=== PATIENT | male | born 1945 | race Caucasian/White ===

== ENCOUNTER 2017-10-26 00:55 | Inpatient (IN) | payer MEDICARE, MEDICAID ==
[2017-10-26] VITALS (9 sets, daily range): BP systolic 141–175; BP diastolic 67–87; PULSE 57–85; RESP 18–28; TEMP 97.9–98.1; O2SAT 93–98
[~2017-10-26] VITALS: Ht 170.2 cm; Wt 75.0 kg
[2017-10-26] MEDS ORDERED: TRAM50TA PO (00:58)
[2017-10-26] MEDS ORDERED: ASPI1TAB57 PO (01:05)
[2017-10-26] MEDS ORDERED: GABA300C5 PO (01:05)
[2017-10-26] MEDS ORDERED: XARE10TA PO (01:06)
[2017-10-26] MEDS ORDERED: CARV3.12 PO (01:07)
[2017-10-26] MEDS ORDERED: CARV6.252 PO (01:07)
[2017-10-26] MEDS ORDERED: SIMV10TA PO (01:08)
[2017-10-26] MEDS ORDERED: AMIO0.1T PO (01:09)
[2017-10-26] MEDS ORDERED: MULTTAB67 PO (01:09)
--- NOTE | 2017-10-26 01:18 | PD ---
HPI Chief Complaint: Respiratory Symptoms Time Seen by Provider: 01:00 Travel History International Travel<30 days: No Contact w/Intl Traveler<30days: No Traveled to known affect area: No History of Present Illness HPI 72-year-old male presents to the emergency department from home for one hour sudden onset shortness of breath that has improved after albuterol updraft 2 administered by EMS during transport. Patient with prior episodes of shortness of breath and does not know the source of his episodes of shortness of breath. Patient has known coronary vessel disease with previous CABG. Patient denies any pain at this time. Patient denies orthopnea or PND or pleuritic chest pain. No hemoptysis. Patient denies prior known history of emphysema or COPD. No report of defibrillation by his AICD. No recent febrile illness. No productive cough. No pleuritic chest pain. PFSH Past Medical History Narrative Medical CAD CABG pacemaker AICD dyslipidemia hypertension; no tobacco use; nursing notes reviewed Hypertension: Yes Tetanus Vaccination: < 5 Years Influenza Vaccination: Yes Past Surgical History Cardiac Surgery: Yes (stent june 05, bypass surgery ) Social History Alcohol Use: No Tobacco Use: No Substance Use: No Allergies-Medications (Allergen,Severity, Reaction): Coded Allergies: No Known Allergies (Verified Allergy, Unknown, 10/26/17) Reported Meds & Prescriptions Reported Meds & Active Scripts Active Reported Multiple Vitamin 1 Tab 1 Tab PO DAILY Amiodarone (Amiodarone HCl) 100 Mg Tab 100 Mg PO DAILY Simvastatin 10 Mg Tab 10 Mg PO DAILY Carvedilol 6.25 Mg Tab 6.25 Mg PO DAILY Xarelto (Rivaroxaban) 10 Mg Tab 10 Mg PO DAILY Aspirin 81 (Aspirin) 81 Mg Tabdr 81 Mg PO DAILY Gabapentin 300 Mg Cap 300 Mg PO TID Tramadol (Tramadol HCl) 50 Mg Tab 50 Mg PO Q6H PRN Review of Systems Except as stated in HPI: all other systems reviewed are Neg Physical Exam Narrative GENERAL: Well-developed well-nourished pale appearing male in no acute distress no respiratory distress SKIN: Warm and dry. HEAD: Normocephalic. EYES: No scleral icterus. No injection or drainage. NECK: Supple, trachea midline. No JVD or lymphadenopathy. CARDIOVASCULAR: Regular rate and rhythm without murmurs, gallops, or rubs. RESPIRATORY: Breath sounds equal bilaterally. No accessory muscle use. GASTROINTESTINAL: Abdomen soft, non-tender, nondistended. MUSCULOSKELETAL: No cyanosis, or edema. BACK: Nontender without obvious deformity. No CVA tenderness. Data Data Last Documented VS Vital Signs Date Time Temp Pulse Resp B/P (MAP) Pulse Ox O2 Delivery O2 Flow Rate FiO2 10/26/17 03:14 72 22 170/75 (106) 98 Nasal Cannula 2.00 Orders Orders Complete Blood Count With Diff (10/26/17 01:24) Comprehensive Metabolic Panel (10/26/17 01:24) B-Type Natriuretic Peptide (10/26/17 01:24) Act Partial Throm Time (Ptt) (10/26/17:24) Prothrombin Time / Inr (Pt) (10/26/17:24) Magnesium (Mg) (10/26/17:24) Ckmb (Isoenzyme) Profile (10/26/17 01:24) Troponin I (10/26/17:24) Urinalysis - C+S If Indicated (10/26/17 01:24) Iv Access Insert/Monitor (10/26/17 01:24) Electrocardiogram (10/26/17 01:24) Ecg Monitoring (10/26/17 01:24) Oximetry (10/26/17 01:24) Oxygen Administration (10/26/17 01:24) Chest, Single Ap (10/26/17 01:24) Sodium Chloride 0.9% Flush (Ns Flush) (10/26/17 01:30) Albuterol-Ipratropium Neb (Duoneb Neb) (10/26/17 01:30) Type And Screen (10/26/17 01:24) CKMB (10/26/17 01:35) CKMB% (10/26/17 01:35) Furosemide Inj (Lasix Inj) (10/26/17 03:00) Admit Order (Ed Use Only) (10/26/17 ) Spa Attendant / Telemetry EDWARD.Q8H (10/26/17 03:15) Diet Heart Healthy (10/26/17 Breakfast) Activity Oob With Assistance (10/26/17 03:15) Notify Dr: Other (10/26/17 03:15) Nitroglycerin 2% Oint (Nitroglycerin 2% (10/26/17 03:30) Labs Laboratory Tests Test 10/26/17 01:35 White Blood Count 8.2 TH/MM3 Red Blood Count 4.09 MIL/MM3 Hemoglobin 12.6 GM/DL Hematocrit 38.3 % Mean Corpuscular Volume 93.6 FL Mean Corpuscular Hemoglobin 30.7 PG Mean Corpuscular Hemoglobin Concent 32.8 % Red Cell Distribution Width 15.9 % Platelet Count 163 TH/MM3 Mean Platelet Volume 8.2 FL Neutrophils (%) (Auto) 41.2 % Lymphocytes (%) (Auto) 43.3 % Monocytes (%) (Auto) 11.3 % Eosinophils (%) (Auto) 3.6 % Basophils (%) (Auto) 0.6 % Neutrophils # (Auto) 3.4 TH/MM3 Lymphocytes # (Auto) 3.6 TH/MM3 Monocytes # (Auto) 0.9 TH/MM3 Eosinophils # (Auto) 0.3 TH/MM3 Basophils # (Auto) 0.0 TH/MM3 CBC Comment DIFF FINAL Differential Comment Prothrombin Time 10.6 SEC Prothromb Time International Ratio 1.0 RATIO Activated Partial Thromboplast Time 20.3 SEC Blood Urea Nitrogen 35 MG/DL Creatinine 1.33 MG/DL Random Glucose 100 MG/DL Total Protein 7.0 GM/DL Albumin 3.3 GM/DL Calcium Level 8.1 MG/DL Magnesium Level 2.1 MG/DL Alkaline Phosphatase 42 U/L Aspartate Amino Transf (AST/SGOT) 24 U/L Alanine Aminotransferase (ALT/SGPT) 35 U/L Total Bilirubin 0.2 MG/DL Sodium Level 139 MEQ/L Potassium Level 5.0 MEQ/L Chloride Level 105 MEQ/L Carbon Dioxide Level 27.8 MEQ/L Anion Gap 6 MEQ/L Estimat Glomerular Filtration Rate 53 ML/MIN Total Creatine Kinase 163 U/L Creatine Kinase MB 4.1 NG/ML Troponin I LESS THAN 0.02 NG/ML B-Type Natriuretic Peptide 362 PG/ML MDM Medical Decision Making Medical Screen Exam Complete: Yes Emergency Medical Condition: Yes Medical Record Reviewed: Yes Interpretation(s) EKG: Sinus rhythm rate 80 to left axis deviation left bundle branch block no acute ST elevation Differential Diagnosis Dyspnea, CHF, PE, anemia, ACS, IN Narrative Course Patient placed on residential monitor with continuous pulse oximetry patient placed on supplemental oxygen 2 L per minute nasal cannula with O2 saturation 96% patient given DuoNeb updraft 1; specimens collected and sent for resulting After additional updraft treatment patient resting comfortably Chest x-ray with some atelectasis versus mild vascular congestion BNP is mildly elevated at 362 with troponin I less than 0.02 and CK total 162 MB percent 2.5% not elevated Patient requesting dinner tray no complaint of chest pain or shortness of breath at this time Patient's case discussed with on-call [facility] MD --rec: admission Physician Communication Physician Communication discussed with Dr Martell Diagnosis Primary Impression: Dyspnea Qualified Codes: R06.03 - Acute respiratory distress Additional Impressions: Chest pain Qualified Codes: R07.2 - Precordial pain CHF with unknown LVEF Admitting Information Admitting Physician Requests: Admit Tracy Christensen MD Oct 26, 2017 01:18
[2017-10-26] MEDS ORDERED: RESP: ALBUTEROL 2.5 MG/IPRATROPIUM 0.5 MG NEB (SCH) INH ONE (01:30)
[2017-10-26] MEDS ORDERED: SODIUM CHLORIDE 0.9% FLUSH 10 ML FLUSH IVF PRN (01:30)
[2017-10-26 01:54] LABS: AUTOMATED NEUTROPHIL # 3.4 TH/MM3 (1.8-7.7); BASOPHIL % 0.6 % (0.0-2.0); EOSINOPHIL # 0.3 TH/MM3 (0-0.4); EOSINOPHIL % 3.6 % (0.0-4.0); HEMATOCRIT 38.3 % (39.0-51.0); HEMOGLOBIN 12.6 GM/DL (13.0-17.0); LYMPH % 43.3 % (9.0-44.0); LYMPHOCYTE # 3.6 TH/MM3 (1.0-4.8); MEAN CELL VOLUME 93.6 FL (80.0-100.0); MEAN CORPUSCULAR HEMOGLOBIN 30.7 PG (27.0-34.0); MEAN CORPUSCULAR HGB CONC 32.8 % (32.0-36.0); MEAN PLATELET VOLUME 8.2 FL (7.0-11.0); MONO % 11.3 % (0.0-8.0); MONOCYTE # 0.9 TH/MM3 (0-0.9); NEUT % 41.2 % (16.0-70.0); PLATELET COUNT 163 TH/MM3 (150-450); RED BLOOD COUNT 4.09 MIL/MM3 (4.50-5.90); RED CELL DISTRIBUTION WIDTH 15.9 % (11.6-17.2); WHITE BLOOD COUNT 8.2 TH/MM3 (4.0-11.0)
[2017-10-26 02:12] LABS: ALKALINE PHOSPHATASE 42 U/L (45-117); TOTAL BILIRUBIN ADULT 0.2 MG/DL (0.2-1.0); TROPONIN I LESS THAN 0.02 NG/ML (0.02-0.05)
[2017-10-26 02:14] LABS: ALBUMIN 3.3 GM/DL (3.4-5.0); ALT (GPT) 35 U/L (12-78); AST (GOT) 24 U/L (15-37); BICARBONATE 27.8 MEQ/L (21.0-32.0); BLOOD UREA NITROGEN 35 MG/DL (7-18); CALCIUM 8.1 MG/DL (8.5-10.1); CHLORIDE 105 MEQ/L (98-107); CREATININE 1.33 MG/DL (0.60-1.30); GLOMERULAR FILTRATION RATE 53 ML/MIN (>89); GLUCOSE,RANDOM 100 MG/DL (74-106); MAGNESIUM 2.1 MG/DL (1.5-2.5); SODIUM (NA) 139 MEQ/L (136-145)
--- NOTE | 2017-10-26 02:14 | RADRPT ---
EXAM DATE/TIME: 10/26/2017 01:43 [place] COMPARISON: No previous studies available for comparison. INDICATIONS : Shortness of breath. MEDICAL HISTORY : Cardiovascular disease. SURGICAL HISTORY : Coronary artery stent. CABG. Pacemaker. ENCOUNTER: Initial ACUITY: 1 day PAIN SCORE: 0/10 LOCATION: Bilateral chest FINDINGS: Single AP view of the chest. AICD in place. Median sternotomy wires noted. Mild cardiac silhouette en largement. Mild medial bilateral lung base opacity likely representing atelectasis. Lungs otherwise c lear. No evidence of pleural effusion or pneumothorax. CONCLUSION: 1. Mild medial bilateral lower lobe opacity likely representing atelectasis. 2. Mild cardiac silhouette enlargement. Jacinto Jaquez MD on October 26, 2017 at 2:07 Board Certified Radiologist. This report was verified electronically.
[2017-10-26 02:15] LABS: PROTHROMBIN TIME - PATIENT 10.6 SEC (9.8-11.6)
[2017-10-26] MEDS ORDERED: FUROSEMIDE 20 MG/2 ML VIAL IV PUSH ONE (03:00)
[2017-10-26] MEDS ORDERED: RESP: ALBUTEROL 2.5 MG/IPRATROPIUM 0.5 MG NEB (PRN) NEB (03:30)
[2017-10-26] MEDS ORDERED: ACETAMINOPHEN/HYDROcodone 325 MG/5 MG TAB PO PRN (03:30)
[2017-10-26] MEDS ORDERED: BISACODYL 10 MG SUPP RECTAL PRN (03:30)
[2017-10-26] MEDS ORDERED: SENNOSIDES 8.6 MG TAB PO PRN (03:30)
[2017-10-26] MEDS ORDERED: NITROGLYCERIN 2% OINT 1 GM PACKET TOPICAL PRN (03:30)
[2017-10-26] MEDS ORDERED: NITROGLYCERIN 2% OINT 1 GM PACKET TOPICAL ONE (03:30)
[2017-10-26] MEDS ORDERED: ACETAMINOPHEN 325 MG TAB PO PRN (03:30)
[2017-10-26] MEDS ORDERED: MAGNESIUM HYDROXIDE SUSP 30 ML CUP PO PRN (03:30)
[2017-10-26] MEDS ORDERED: ONDANSETRON HCL 4 MG/2 ML VIAL IVP PRN (03:30)
[2017-10-26] MEDS ORDERED: LACTULOSE SYRUP 20 GM/30 ML CUP PO PRN (03:30)
[2017-10-26] MEDS ORDERED: SODIUM CHLORIDE 0.9% FLUSH 10 ML FLUSH IV FLUSH PRN (03:30)
[2017-10-26] MEDS ORDERED: MORPHINE SULFATE 2 MG/ML INJ IV PUSH PRN (03:30)
[2017-10-26 03:53] LABS: BILIRUBIN, URINE NEG (NEG); BLOOD, URINE NEG (NEG); GLUCOSE,URINE NEG (NEG); KETONE, URINE NEG (NEG); MUCUS URINE FEW /lpf (OCC); NITRITE,URINE NEG (NEG); PH, URINE 5.5 (5.0-8.5); URINE COLOR LIGHT-YELLOW (YELLW/STRAW); URINE LEUKOCYTE ESTERASE NEG (NEG)
--- NOTE | 2017-10-26 03:57 | HHI.HP ---
HPI Service [facility] Primary Care Physician No Primary Care Physician Admission Diagnosis chest pain; chf Diagnoses: (1) Chest pain Diagnosis: Principal (2) Hypoxia Diagnosis: Principal (3) Renal insufficiency Diagnosis: Principal (4) HTN (hypertension) Diagnosis: Principal Travel History International Travel<30 Days: No Contact w/Intl Traveler <30 Da: No Traveled to Known Affected Are: No History of Present Illness This is a 72-year-old male with a PMH of HTN, CAD s/p CABG, AICD and A-fib on Xarelto who was brought to the ER by EMS secondary to c/o chest pain and SOB starting few hours prior. States he had progressive SOB, worse w/ exertion, moderate severity, associated w/ chest pain. Chest pain sharp, intermittent, non-radiating, 6/10. Upon EMS arrival, pt w/ O2 sat 88%, s/p DuoNeb by EMS w/ improvement in SOB and chest pain. No reports of AICD firing. 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 BP 168/87, HR 85, O2 sat 94% on RA. CBC essentially unremarkable. Creatinine 1.33. Troponin negative. BNP 362. INR 1.0. UA pending. CXR with mild medial bilateral lower lobe opacity likely atelectasis. S/p Lasix, NTG and DuoNeb in ER, currently chest pain free. Review of Systems Except as stated in HPI: all other systems reviewed are Neg ROS: 14 point review of systems otherwise negative. Past Family Social History Past Medical History PMH: HTN, CAD s/p CABG, AICD and A-fib on Xarelto Past Surgical History PAST SURGICAL HISTORY: Cardiac Stent, CABG, AICD Allergies: Coded Allergies: No Known Allergies (Verified Allergy, Unknown, 10/26/17) Family History PAST FAMILY HISTORY: Reviewed. No h/o DM or CAD Social History PAST SOCIAL HISTORY: Negative for alcohol, tobacco or drugs. Physical Exam Vital Signs Vital Signs Date Time Temp Pulse Resp B/P (MAP) Pulse Ox O2 Delivery O2 Flow Rate FiO2 10/26/17 03:39 98 Nasal Cannula 2.00 10/26/17 03:14 72 22 170/75 (106) 98 Nasal Cannula 2.00 10/26/17 01:34 95 Nasal Cannula 2.00 10/26/17 01:34 95 Nasal Cannula 2.00 10/26/17 00:59 96 Nasal Cannula 2.00 10/26/17 00:58 85 28 168/87 (114) 94 Room Air Physical Exam PE: GENERAL: Very pleasant elderly white male in no acute distress. HEENT: PERRLA, EOMI. No scleral icterus or conjunctival pallor. No lid lag or facial droop. CARDIOVASCULAR: Regular rate and rhythm. No obvious murmurs to auscultation. No chest tenderness to palpation. RESPIRATORY: No obvious rhonchi or wheezing. Clear to auscultation. Breath sounds equal bilaterally. GASTROINTESTINAL: Abdomen soft, non-tender, nondistended. BS normal. MUSCULOSKELETAL: Extremities without clubbing, cyanosis, or edema. No obvious deformities. NEUROLOGICAL: Awake, alert and oriented x4. No focal neurologic deficits. Moving both upper and lower extremities spontaneously. Laboratory Laboratory Tests Test 10/26/17 01:35 10/26/17 03:20 White Blood Count 8.2 Red Blood Count 4.09 Hemoglobin 12.6 Hematocrit 38.3 Mean Corpuscular Volume 93.6 Mean Corpuscular Hemoglobin 30.7 Mean Corpuscular Hemoglobin Concent 32.8 Red Cell Distribution Width 15.9 Platelet Count 163 Mean Platelet Volume 8.2 Neutrophils (%) (Auto) 41.2 Lymphocytes (%) (Auto) 43.3 Monocytes (%) (Auto) 11.3 Eosinophils (%) (Auto) 3.6 Basophils (%) (Auto) 0.6 Neutrophils # (Auto) 3.4 Lymphocytes # (Auto) 3.6 Monocytes # (Auto) 0.9 Eosinophils # (Auto) 0.3 Basophils # (Auto) 0.0 CBC Comment DIFF FINAL Differential Comment Prothrombin Time 10.6 Prothromb Time International Ratio 1.0 Activated Partial Thromboplast Time 20.3 Blood Urea Nitrogen 35 Creatinine 1.33 Random Glucose 100 Total Protein 7.0 Albumin 3.3 Calcium Level 8.1 Magnesium Level 2.1 Alkaline Phosphatase 42 Aspartate Amino Transf (AST/SGOT) 24 Alanine Aminotransferase (ALT/SGPT) 35 Total Bilirubin 0.2 Sodium Level 139 Potassium Level 5.0 Chloride Level 105 Carbon Dioxide Level 27.8 Anion Gap 6 Estimat Glomerular Filtration Rate 53 Total Creatine Kinase 163 Creatine Kinase MB 4.1 Troponin I LESS THAN 0.02 B-Type Natriuretic Peptide 362 Result Diagram: 10/26/1713410/26/17134 Caprini VTE Risk Assessment Caprin VTE Risk Assessment: Mod/High Risk (score >= 2) Caprini Risk Assessment Model Point Value = 1 Point Value = 2 Point Value = 3 Point Value = 5 Age 41-60 Minor surgery BMI > 25 kg/m2 Swollen legs Varicose veins or History of unexplained or recurrent spontaneous Oral contraceptives or hormone replacement Sepsis (< 1 month) Serious lung disease, including pneumonia (< 1 month) Abnormal pulmonary function Acute myocardial infarction Congestive heart failure (< 1 month) History of inflammatory bowel disease Medical patient at bed rest Age 61-74 Arthroscopic surgery Major open surgery (> 45 min) Laparoscopic surgery (> 45 min) Malignancy Confined to bed (> 72 hours) Immobilizing plaster cast Central venous access Age >= 75 History of VTE Family history of VTE Factor V Leiden Prothrombin [id number] Lupus anticoagulant Anticardiolipin antibodies Elevated serum homocysteine Heparin-induced thrombocytopenia Other congenital or acquired thrombophilia Stroke (< 1 month) Elective arthroplasty Hip, pelvis, or leg fracture Acute spinal cord injury (< 1 month) Prophylaxis Regimen Total Risk Factor Score Risk Level Prophylaxis Regimen 0-1 Low Early ambulation 2 Moderate Order ONE of the following: *Sequential Compression Device (SCD) *Heparin 5000 units SQ BID 3-4 Higher Order ONE of the following medications: *Heparin 5000 units SQ TID *Enoxaparin/Lovenox 40 mg SQ daily (WT < 150 kg, CrCl > 30 mL/min) *Enoxaparin/Lovenox 30 mg SQ daily (WT < 150 kg, CrCl > 10-29 mL/min) *Enoxaparin/Lovenox 30 mg SQ BID (WT < 150 kg, CrCl > 30 mL/min) AND/OR *Sequential Compression Device (SCD) 5 or more Highest Order ONE of the following medications: *Heparin 5000 units SQ TID (Preferred with Epidurals) *Enoxaparin/Lovenox 40 mg SQ daily (WT < 150 kg, CrCl > 30 mL/min) *Enoxaparin/Lovenox 30 mg SQ daily (WT < 150 kg, CrCl > 10-29 mL/min) *Enoxaparin/Lovenox 30 mg SQ BID (WT < 150 kg, CrCl > 30 mL/min) AND *Sequential Compression Device (SCD) Assessment and Plan Problem List: (1) Chest pain ICD Code: R07.9 - Chest pain, unspecified Status: Acute (2) Hypoxia ICD Code: R09.02 - Hypoxemia (3) Renal insufficiency ICD Code: N28.9 - Disorder of kidney and ureter, unspecified (4) HTN (hypertension) ICD Code: I10 - Essential (primary) hypertension Assessment and Plan A/P: 1. Chest Pain: acute onset of chest pain w/ SOB, h/o CAD s/p CABG, R/o ACS. Admit to Telemetry, check serial cardiac enzymes, ASA, Statin, resume home Coreg. CXR w/ likely atelectasis, mild cardiac silhouette enlargement, images reviewed by me. NTG/Morphine as needed. 2. Hypoxia: c/o SOB w/ acute hypoxia, O2 sat 88% on RA, s/p DuoNeb w/ improvement, no reported h/o COPD. BNP mildly elevated, s/p Lasix 20mg IV w/ good diuresis. Continue DuoNeb prn for possible bronchospasm. Check Echo to eval for cardiomyopathy/heart failure. Monitor O2. 3. Renal Insufficiency: Creatinine 1.33, no previous labs for comparison. Check UA. Caution with diuresis in light of renal insufficiency, repeat labs in a.m. 4. HTN: Uncontrolled. BP 170s, resume home medications, monitor BP. 5. DVT Prophylaxis: Heparin sq 6. Social work for d/c planning as needed. 7. Labs/records/imaging reviewed by me. Case discussed at length w/ ER physician. Physician Certification 2 Midnight Certification Type: Admission for Inpatient Services Order for Inpatient Services The services are ordered in accordance with Medicare regulations or non- Medicare payer requirements, as applicable. In the case of services not specified as inpatient-only, they are appropriately provided as inpatient services in accordance with the 2-midnight benchmark. Estimated LOS (days): 2 days is the estimated time the patient will need to remain in the hospital, assuming treatment plan goals are met and no additional complications. Post-Hospital Plan: Not yet determined Problem Qualifiers (1) Chest pain: Qualified Codes: R07.2 - Precordial pain Graciela Martell MD Oct 26, 2017 03:57
[2017-10-26] MEDS ORDERED: HEPARIN SODIUM - SQ 10,000 UNITS/ML VIAL SQ SCH (09:00)
--- NOTE | 2017-10-26 10:17 | HHI.PR ---
Subjective Remarks Follow-up on patient with chest pain and shortness of breath. Patient seen and examined. Patient states he feels a little better than he did yesterday. Patient is a very poor historian. He vocalizes he's frustration that he is having to repeat the same information he is already told other providers. When asked about medications, patient tells me to "check the sheet". When asked about previous surgeries patient points to his chest and says "what do you think am I making this up?". Patient states he has left-sided chest pain mostly with palpation although he does report that he has it sometimes without. Reports shortness of breath with minimal activity. Denies any lower extremity swelling. States he is urinating without any difficulties. Recently relocated to this area from [place] a few days ago. 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 States he had a cardiac stent placement done 4 months ago and that he is "due for another one". States he is compliant with his medications and diet. He denies any nausea, vomiting or abdominal pain. Patient then informs me that he doesn't want to talk anymore and suggests that I look on the computer for any more information. 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 Patient's compliance is questionable. Objective Vitals Vital Signs Date Time Temp Pulse Resp B/P (MAP) Pulse Ox O2 Delivery O2 Flow Rate FiO2 10/26/17 08:38 97.9 57 18 175/72 (106) 93 10/26/17 05:07 98.0 60 18 141/76 (97) 94 10/26/17 03:51 10/26/17 03:39 98 Nasal Cannula 2.00 10/26/17 03:14 72 22 170/75 (106) 98 Nasal Cannula 2.00 10/26/17 01:34 95 Nasal Cannula 2.00 10/26/17 01:34 95 Nasal Cannula 2.00 10/26/17 00:59 96 Nasal Cannula 2.00 10/26/17 00:58 85 28 168/87 (114) 94 Room Air Result Diagram: 10/26/17 0135 10/26/17 0135 Imaging Last Impressions Chest X-Ray 10/26/17 0124 Signed Impressions: Service Date/Time: Thursday, October 26, 2017 01:43 - CONCLUSION: 1. Mild medial bilateral lower lobe opacity likely representing atelectasis. 2. Mild cardiac silhouette enlargement. Jacinto Jaquez MD Objective Remarks GENERAL: Well-nourished, well-developed elderly male patient in NAD. Awake and alert. SKIN: Warm and dry. No rash. Well healed midline surgical scar chest and abdomen. HEAD: Normocephalic. Atraumatic. EYES: EOMI. No scleral icterus. No injection or drainage. ENT: No nasal bleeding or discharge. Mucous membranes pink and moist. NECK: Supple. Trachea midline. CARDIOVASCULAR: Regular rate and rhythm. S1, S2 noted. No murmur appreciated. Left sided chest pain reproducible on examination. RESPIRATORY: Nonlabored. Clear to auscultation. Breath sounds equal bilaterally. GASTROINTESTINAL: Abdomen soft, non-tender, nondistended. Normoactive bowel sounds x4. MUSCULOSKELETAL: No obvious deformities. Extremities without clubbing, cyanosis , or edema. NEUROLOGICAL: Awake and alert. Able to move all extremities spontaneously. No focal neurologic findings appreciated.. Normal speech. PSYCHIATRIC: Irritable mood and affect. Medications and IVs Current Medications Medications (Trade) Dose Ordered Sig/Eliot Route Start Time Stop Time Status Last Admin (NS Flush) 2 ml UNSCH PRN IVF 10/26/17 01:30 (Lasix Inj) 20 mg BID@,18 IV PUSH 10/26/17 09:00 (Duoneb Neb) 1 ampule Q4HR NEB PRN NEB 10/26/17 03:30 (Nitroglycerin 2% Oint) 0.5 inch Q6HR PRN TOPICAL 10/26/17 03:30 (NS Flush) 2 ml UNSCH PRN IV FLUSH 10/26/17 03:30 (NS Flush) 2 ml BID IV FLUSH 10/26/17 09:00 (Zofran Inj) 4 mg Q6H PRN IVP 10/26/17 03:30 (Heparin Inj) 5,000 units Q12H SQ 10/26/17 09:00 (Tylenol) 650 mg Q6H PRN PO 10/26/17 03:30 ([place] 5-325 Mg) 1 tab Q4H PRN PO 10/26/17 03:30 (Morphine Inj) 2 mg Q3H PRN IV PUSH 10/26/17 03:30 (Lillian-Colace) 1 tab BID PO 10/26/17 09:00 (Milk Of Magnesia Liq) 30 ml Q12H PRN PO 10/26/17 03:30 (Senokot) 17.2 mg Q12H PRN PO 10/26/17 03:30 (Dulcolax Supp) 10 mg DAILY PRN RECTAL 10/26/17 03:30 (Lactulose Liq) 30 ml DAILY PRN PO 10/26/17 03:30 (Cordarone) 100 mg DAILY PO 10/26/17 09:00 (Ecotrin Ec) 81 mg DAILY PO 10/26/17 09:00 (Coreg) 6.25 mg DAILY PO 10/26/17 09:00 (Neurontin) 300 mg TID PO 10/26/17 09:00 (Theragran) 1 tab DAILY PO 10/26/17 09:00 (Pravachol) 20 mg DAILY PO 10/26/17 09:00 A/P Problem List: (1) Chest pain ICD Code: R07.9 - Chest pain, unspecified Status: Acute (2) Hypoxia ICD Code: R09.02 - Hypoxemia (3) Renal insufficiency ICD Code: N28.9 - Disorder of kidney and ureter, unspecified (4) HTN (hypertension) ICD Code: I10 - Essential (primary) hypertension Assessment and Plan Chest Pain, atypical, r/o ACS He has extensive history of CAD s/p CABG and reports cardiac stent implant 4mos ago - initial troponin negative. Continue to trend cardiac enzymes. - Cardiology consulted, appreciate recommendations - Continuous cardiac monitoring - ASA, Statin and Coreg. - NTG/Morphine as needed. Hypoxia c/o SOB w/ acute hypoxia, O2 sat 88% on RA, s/p DuoNeb w/ improvement, no reported h/o COPD. Concern for CHF - CXR w/ likely atelectasis, mild cardiac silhouette enlargement. IS at bedside, encourage hourly use - BNP mildly elevated, s/p Lasix 20mg IV w/ good diuresis. Continue on IV Lasix. Monitor electrolytes. Strict I&Os. - Continue DuoNeb prn - Check Echo to eval for cardiomyopathy/heart failure. - Monitor O2. Afib on Xarelto - rate controlled - continue on Amiodarone and Xarelto. May need to consider Xarelto dose reduction pending trend in kidney function - continue to monitor HR ?DELFINO on CKD - Creatinine 1.33, no previous labs for comparison. - UA unremarkable - avoid nephrotoxic agents. - continue to monitor kidney function HTN: Uncontrolled. BP 170s - Resume home medications - Hydralazine prn with parameters - monitor BP and adjust treatment accordingly DVT Prophylaxis: Patient is on Xarelto Discharge Planning Pending cardiac clearance and echocardiogram results Attending Statement patient was seen and examined. presented with chest pain. cardiology consulted; awaiting recommendations. rest of assessment and plan as noted above. Problem Qualifiers (1) Chest pain: Qualified Codes: R07.2 - Precordial pain Ninfa Montesinos Oct 26, 2017 10:17 Amada Fletcher MD Oct 26, 2017 11:15
--- NOTE | 2017-10-26 10:21 | PD.CONS ---
HPI Consult Requested By Primary Care Physician No Primary Care Physician History of Present Illness 72-year-old male with a PMH of HTN, CAD s/p CABG, AICD and A-fib on Xarelto who was brought to the ER by EMS secondary to c/o chest pain and SOB starting few hours prior. States he had progressive SOB, worse w/ exertion, moderate severity, associated w/ chest pain. Chest pain sharp, intermittent, non- radiating, 6/10. Upon EMS arrival, pt w/ O2 sat 88%, s/p DuoNeb by EMS w/ improvement in SOB and chest pain. No reports of AICD firing. Pt poor historian, does not know what medications he takes, no local [employer]. BP 168/87, HR 85, O2 sat 94% on RA. CBC essentially unremarkable. Creatinine 1.33. Troponin negative. BNP 362. INR 1.0. UA pending. CXR with mild medial bilateral lower lobe opacity likely atelectasis. S/p Lasix, NTG and DuoNeb in ER, currently chest pain free. Cardiology consulted for further management and evaluation. Review of Systems Consitutional: DENIES: Fatigue, Fever, Chills, Weight gain, Weight loss Eyes: DENIES: Amaurosis Fugax, Change in vision HEENT: DENIES: Lightheadedness, Change in hearing Respiratory: COMPLAINS OF: See HPI, Shortness of breath, DENIES: Cough, Snoring , Wheezing, Sputum production Cardiovascular: DENIES: See HPI, Chest pain, Palpitations, Syncope, Tachycardia Gastrointestinal: DENIES: Nausea, Vomiting, Change in bowel habits, Reflux, Bloody stools, Melena Genitourinary: DENIES: Urinary incontinence, Difficulty voiding Integumentary: DENIES: Rash Neurologic: DENIES: Tingling or numbness, Memory problems, Poor Balance, Stroke symptoms Musculoskeletal: DENIES: Joint pain, Muscle pain, Limited range of motion, Back pain Psychiatric: DENIES: Anxiety, Depression, Sleep disturbances Hematologic: DENIES: Bruising tendencies, Bleeding tendencies Endocrine: DENIES: Weight gain, Weight loss, Thyroid disease Past Family Social History Allergies: Coded Allergies: No Known Allergies (Verified Allergy, Unknown, 10/26/17) Past Medical History HTN, CAD s/p CABG, AICD and A-fib on Xarelto Past Surgical History Cardiac Stent, CABG, AICD Reported Medications Reported Meds & Active Scripts Active Reported Multiple Vitamin 1 Tab 1 Tab PO DAILY Amiodarone (Amiodarone HCl) 100 Mg Tab 100 Mg PO DAILY Simvastatin 10 Mg Tab 10 Mg PO DAILY Carvedilol 6.25 Mg Tab 6.25 Mg PO DAILY Xarelto (Rivaroxaban) 10 Mg Tab 10 Mg PO DAILY Aspirin 81 (Aspirin) 81 Mg Tabdr 81 Mg PO DAILY Gabapentin 300 Mg Cap 300 Mg PO TID Tramadol (Tramadol HCl) 50 Mg Tab 50 Mg PO Q6H PRN Active Ordered Medications Current Medications Medications (Trade) Dose Ordered Sig/Eliot Route Start Time Stop Time Status Last Admin (NS Flush) 2 ml UNSCH PRN IVF 10/26/17 01:30 (Lasix Inj) 20 mg BID@ IV PUSH 10/26/17 09:00 (Duoneb Neb) 1 ampule Q4HR NEB PRN NEB 10/26/17 03:30 (Nitroglycerin 2% Oint) 0.5 inch Q6HR PRN TOPICAL 10/26/17 03:30 (NS Flush) 2 ml UNSCH PRN IV FLUSH 10/26/17 03:30 (NS Flush) 2 ml BID IV FLUSH 10/26/17 09:00 (Zofran Inj) 4 mg Q6H PRN IVP 10/26/17 03:30 (Heparin Inj) 5,000 units Q12H SQ 10/26/17 09:00 (Tylenol) 650 mg Q6H PRN PO 10/26/17 03:30 ([place] 5-325 Mg) 1 tab Q4H PRN PO 10/26/17 03:30 (Morphine Inj) 2 mg Q3H PRN IV PUSH 10/26/17 03:30 (Lillian-Colace) 1 tab BID PO 10/26/17 09:00 (Milk Of Magnesia Liq) 30 ml Q12H PRN PO 10/26/17 03:30 (Senokot) 17.2 mg Q12H PRN PO 10/26/17 03:30 (Dulcolax Supp) 10 mg DAILY PRN RECTAL 10/26/17 03:30 (Lactulose Liq) 30 ml DAILY PRN PO 10/26/17 03:30 (Cordarone) 100 mg DAILY PO 1/7/18 09:00 (Ecotrin Ec) 81 mg DAILY PO 10/26/17 09:00 (Coreg) 6.25 mg DAILY PO 10/26/17 09:00 (Neurontin) 300 mg TID PO 10/26/17 09:00 (Theragran) 1 tab DAILY PO 10/26/17 09:00 (Pravachol) 20 mg DAILY PO 10/26/17 09:00 Family History No h/o DM or CAD Social History Negative for alcohol, tobacco or drugs. Physical Exam Vital Signs Vital Signs Date Time Temp Pulse Resp B/P (MAP) Pulse Ox O2 Delivery O2 Flow Rate FiO2 10/26/17 08:38 97.9 57 18 175/72 (106) 93 10/26/17 05:07 98.0 60 18 141/76 (97) 94 10/26/17 03:51 10/26/17 03:39 98 Nasal Cannula 2.00 10/26/17 03:14 72 22 170/75 (106) 98 Nasal Cannula 2.00 10/26/17 01:34 95 Nasal Cannula 2.00 10/26/17 01:34 95 Nasal Cannula 2.00 10/26/17 00:59 96 Nasal Cannula 2.00 10/26/17 00:58 85 28 168/87 (114) 94 Room Air Physical Exam GENERAL: Well-nourished, well-developed patient. SKIN: Warm and dry. HEAD: Normocephalic. EYES: No scleral icterus. No injection or drainage. NECK: Supple, trachea midline. No JVD or lymphadenopathy. CARDIOVASCULAR: Regular rate and rhythm without murmurs, gallops, or rubs. RESPIRATORY: Breath sounds equal bilaterally. No accessory muscle use. GASTROINTESTINAL: Abdomen soft, non-tender, nondistended. EXTREMITIES: No cyanosis, or edema. NEUROLOGICAL: Awake, alert, and oriented x 3. Non-focal. Laboratory Laboratory Tests Test 10/26/17 01:35 10/26/17 03:20 White Blood Count 8.2 Red Blood Count 4.09 Hemoglobin 12.6 Hematocrit 38.3 Mean Corpuscular Volume 93.6 Mean Corpuscular Hemoglobin 30.7 Mean Corpuscular Hemoglobin Concent 32.8 Red Cell Distribution Width 15.9 Platelet Count 163 Mean Platelet Volume 8.2 Neutrophils (%) (Auto) 41.2 Lymphocytes (%) (Auto) 43.3 Monocytes (%) (Auto) 11.3 Eosinophils (%) (Auto) 3.6 Basophils (%) (Auto) 0.6 Neutrophils # (Auto) 3.4 Lymphocytes # (Auto) 3.6 Monocytes # (Auto) 0.9 Eosinophils # (Auto) 0.3 Basophils # (Auto) 0.0 CBC Comment DIFF FINAL Differential Comment Prothrombin Time 10.6 Prothromb Time International Ratio 1.0 Activated Partial Thromboplast Time 20.3 Blood Urea Nitrogen 35 Creatinine 1.33 Random Glucose 100 Total Protein 7.0 Albumin 3.3 Calcium Level 8.1 Magnesium Level 2.1 Alkaline Phosphatase 42 Aspartate Amino Transf (AST/SGOT) 24 Alanine Aminotransferase (ALT/SGPT) 35 Total Bilirubin 0.2 Sodium Level 139 Potassium Level 5.0 Chloride Level 105 Carbon Dioxide Level 27.8 Anion Gap 6 Estimat Glomerular Filtration Rate 53 Total Creatine Kinase 163 Creatine Kinase MB 4.1 Troponin I LESS THAN 0.02 B-Type Natriuretic Peptide 362 Urine Color LIGHT-YELLOW Urine Turbidity CLEAR Urine pH 5.5 Urine Specific [place] 1.013 Urine Protein NEG Urine Glucose (UA) NEG Urine Ketones NEG Urine Occult Blood NEG Urine Nitrite NEG Urine Bilirubin NEG Urine Urobilinogen LESS THAN 2.0 Urine Leukocyte Esterase NEG Urine RBC 1 Urine WBC LESS THAN 1 Urine Mucus FEW Microscopic Urinalysis Comment CULT NOT INDICATED Result Diagram: 10/26/1713410/26/17134 Imaging Last Impressions Chest X-Ray 10/26/17123 Signed Impressions: Service Date/Time: Thursday, October 26, 2017 01:43 - CONCLUSION: 1. Mild medial bilateral lower lobe opacity likely representing atelectasis. 2. Mild cardiac silhouette enlargement. Jacinto Jaquez MD Assessment and Plan Problem List: (1) Chest pain ICD Codes: R07.9 - Chest pain, unspecified Status: Acute Plan: Acute on SOB. No chest pain. Known hx of CAD s/p CABG and PCI unfortunately records not available. Trop x2 Negative. Currently chest pain free , with CV complaints. Recommendations: 1. get outside cardiovascular records 2. MPI 3. Echo 4. ASA, BB, statin, nitrates 5. Hold Xarelto in case he needs a C. Further management to be determine (2) CHF with unknown LVEF ICD Codes: I50.9 - Heart failure, unspecified Status: Acute (3) CHF (congestive heart failure) ICD Codes: I50.9 - Heart failure, unspecified (4) Renal insufficiency ICD Codes: N28.9 - Disorder of kidney and ureter, unspecified (5) HTN (hypertension) ICD Codes: I10 - Essential (primary) hypertension Problem Qualifiers (1) Chest pain: Qualified Codes: R07.2 - Precordial pain Aman Vernon MD Oct 26, 2017 10:21
[2017-10-26] MEDS ORDERED: RIVAROXABAN 10 MG TAB PO SCH (11:00)
[2017-10-26] MEDS: SODIUM CHLORIDE 0.9% FLUSH 10 ML FLUSH IV FLUSH SCH ×2 (11:40→21:15)
[2017-10-26] MEDS: FUROSEMIDE 20 MG/2 ML VIAL IV PUSH SCH ×2 (11:41→18:17)
[2017-10-26] MEDS: AMIODARONE 200 MG TAB PO SCH (11:42)
[2017-10-26] MEDS: CARVEDILOL 6.25 MG TAB PO SCH (11:42)
[2017-10-26] MEDS: ASPIRIN EC 81 MG TABEC PO SCH (11:43)
[2017-10-26] MEDS: DOCUSATE SODIUM 50 MG/SENNA 8.6 MG TAB PO SCH ×2 (11:43→21:00)
[2017-10-26] MEDS: GABAPENTIN 300 MG CAP PO SCH ×3 (11:43→18:15)
[2017-10-26] MEDS: MULTIVITAMIN TAB PO SCH (11:44)
[2017-10-26] MEDS: PRAVASTATIN SOD 20 MG TAB PO SCH (11:49)
--- NOTE | 2017-10-26 13:53 | EKG ---
Date Performed: 10/26/2017 Time Performed: 01:00:45 PTAGE: 72 years EKG: Marked electrical baseline artifact makes interpretation difficult Left bundle branch block Left axis deviation ABNORMAL ECG NO PREVIOUS TRACING DOCTOR: Tarik Bolanos Interpretating Date/Time 10/26/2017 13:53:02
[2017-10-26 20:25] LABS: TROPONIN I LESS THAN 0.02 NG/ML (0.02-0.05)
[2017-10-27] VITALS (10 sets, daily range): BP systolic 105–186; BP diastolic 61–86; PULSE 54–76; RESP 16–20; TEMP 96.7–98.1; O2SAT 94–96
[2017-10-27 06:55] LABS: AUTOMATED NEUTROPHIL # 13.8 TH/MM3 (1.8-7.7); BASOPHIL % 0.1 % (0.0-2.0); HEMATOCRIT 37.8 % (39.0-51.0); HEMOGLOBIN 12.7 GM/DL (13.0-17.0); LYMPH % 10.4 % (9.0-44.0); LYMPHOCYTE # 1.8 TH/MM3 (1.0-4.8); MEAN CORPUSCULAR HEMOGLOBIN 31.3 PG (27.0-34.0); MEAN CORPUSCULAR HGB CONC 33.6 % (32.0-36.0); MEAN PLATELET VOLUME 8.4 FL (7.0-11.0); MONO % 10.2 % (0.0-8.0); MONOCYTE # 1.8 TH/MM3 (0-0.9); NEUT % 79.3 % (16.0-70.0); PLATELET COUNT 180 TH/MM3 (150-450); RED BLOOD COUNT 4.06 MIL/MM3 (4.50-5.90); RED CELL DISTRIBUTION WIDTH 15.6 % (11.6-17.2); WHITE BLOOD COUNT 17.4 TH/MM3 (4.0-11.0)
[2017-10-27 07:38] LABS: ALBUMIN 3.1 GM/DL (3.4-5.0); AST (GOT) 14 U/L (15-37); BICARBONATE 27.7 MEQ/L (21.0-32.0); BLOOD UREA NITROGEN 39 MG/DL (7-18); CALCIUM 8.8 MG/DL (8.5-10.1); CHLORIDE 104 MEQ/L (98-107); GLOMERULAR FILTRATION RATE 60 ML/MIN (>89); GLUCOSE,RANDOM 95 MG/DL (74-106); SODIUM (NA) 140 MEQ/L (136-145)
[2017-10-27 07:39] LABS: ALT (GPT) 27 U/L (12-78)
[2017-10-27 07:42] LABS: ALKALINE PHOSPHATASE 38 U/L (45-117); TOTAL BILIRUBIN ADULT 0.3 MG/DL (0.2-1.0); TOTAL PROTEIN 6.9 GM/DL (6.4-8.2)
--- NOTE | 2017-10-27 08:02 | HHI.PR ---
Subjective Remarks in no acute distress. now is chest pain free. no sob. Objective Vitals Vital Signs Date Time Temp Pulse Resp B/P (MAP) Pulse Ox O2 Delivery O2 Flow Rate FiO2 10/27/17 05:42 98.1 62 20 172/74 (106) 95 10/27/17 00:00 98.0 66 16 160/70 (100) 96 10/26/17 16:00 59 10/26/17 14:19 98.1 68 18 146/67 (93) 94 10/26/17 08:38 97.9 57 18 175/72 (106) 93 I/O 10/26/17 10/26/17 10/26/17 10/27/17 10/27/17 10/27/17 07:00 15:00 23:00 07:00 15:00 23:00 Output Total 300 ml Balance -300 ml Output Urine Total 300 ml # Voids 1 # Bowel Movements 0 Result Diagram: 10/27/17 0505 10/27/17 0505 Imaging Last Impressions Chest X-Ray 10/26/17 0124 Signed Impressions: Service Date/Time: Thursday, October 26, 2017 01:43 - CONCLUSION: 1. Mild medial bilateral lower lobe opacity likely representing atelectasis. 2. Mild cardiac silhouette enlargement. Jacinto Jaquez MD Objective Remarks GENERAL: This is a well-nourished, well-developed patient, in no apparent distress. CARDIOVASCULAR: Regular rate and regular rhythm without murmurs, gallops, or rubs. RESPIRATORY: Clear to auscultation. Breath sounds equal bilaterally. No wheezes , rales, or rhonchi. GASTROINTESTINAL: Abdomen soft, non-tender, nondistended. Normal, active bowel sounds MUSCULOSKELETAL: Extremities without clubbing, cyanosis, or edema. NEURO: Alert & Oriented x4 to person, place, time, situation. Moves all ext x4 Medications and IVs Inpatient Medications Acetaminophen (Tylenol) 650 mg Q6H PRN PO FEVER/PAIN SCALE 1 TO 2; Start at 03:30 Acetaminophen/ Hydrocodone Bitart ([place] 5-325 Mg) 1 tab Q4H PRN PO PAIN SCALE 3 TO 5 Last administered on 10/26/17at 15:16; Start 10/26/17 at 03:30 Albuterol/ Ipratropium (Duoneb Neb) 1 ampule Q4HR NEB PRN NEB SOB/WHEEZING; Start 10/26/17 at 03:30 Amiodarone HCl (Cordarone) 100 mg DAILY PO Last administered on 10/26/17at 11:42 ; Start 10/26/17 at 09:00 Aspirin (Ecotrin Ec) 81 mg DAILY PO Last administered on 10/26/17at 11:43; Start 10/26/17 at 09:00 Bisacodyl (Dulcolax Supp) 10 mg DAILY PRN RECTAL SEVERE CONSITIPATION/ IF NPO; Start 10/26/17 at 03:30 Carvedilol (Coreg) 6.25 mg DAILY PO Last administered on 10/26/17 11:42; Start 10/26/17 at 09:00 Furosemide (Lasix Inj) 20 mg BID@09,18 IV PUSH Last administered on 10/26/17at 18 :17; Start 10/26/17 at 09:00 Gabapentin (Neurontin) 300 mg TID PO Last administered on 10/26/17at 18:15; Start 10/26/17 at 09:00 Heparin Sodium (Porcine) (Heparin Inj) 5,000 units Q12H SQ ; Start 10/26/17 at 09 :00; Stop 10/26/17 at 10:21; Status DC Lactulose (Lactulose Liq) 30 ml DAILY PRN PO SEVERE CONSITIPATION/ IF PO; Start 10/26/17 at 03:30 Magnesium Hydroxide (Milk Of Magnesia Liq) 30 ml Q12H PRN PO Mild constipation ; Start 10/26/17 at 03:30 Morphine Sulfate (Morphine Inj) 2 mg Q3H PRN IV PUSH Pain 6-10 Last administered on 10/26/17at 21:18; Start 10/26/17 at 03:30 Multivitamins (Theragran) 1 tab DAILY PO Last administered on 10/26/17at 11:44; Start 10/26/17 at 09:00 Nitroglycerin (Nitroglycerin 2% Oint) 0.5 inch Q6HR PRN TOPICAL CHEST PAIN; Start 10/26/17 at 03:30 Ondansetron HCl (Zofran Inj) 4 mg Q6H PRN IVP NAUSEA OR VOMITING; Start at 03:30 Pravastatin Sodium (Pravachol) 20 mg DAILY PO Last administered on 10/26/17at 11: 49; Start 10/26/17 at 09:00 Rivaroxaban (Xarelto) 10 mg DAILY PO Last administered on 10/26/17at 15:17; Start 10/26/17 at 11:00; Status Future Hold Senna/Docusate Sodium (Lillian-Colace) 1 tab BID PO Last administered on 10/26/17at 11:43; Start 10/26/17 at 09:00 Sennosides (Senokot) 17.2 mg Q12H PRN PO Moderate constipation; Start 10/26/17 at 03:30 Sodium Chloride (NS Flush) 2 ml BID IV FLUSH Last administered on 10/26/17at 21: 15; Start 10/26/17 at 09:00 A/P Problem List: (1) Chest pain ICD Code: R07.9 - Chest pain, unspecified Status: Acute (2) Hypoxia ICD Code: R09.02 - Hypoxemia (3) Renal insufficiency ICD Code: N28.9 - Disorder of kidney and ureter, unspecified (4) HTN (hypertension) ICD Code: I10 - Essential (primary) hypertension Assessment and Plan Chest Pain, atypical, r/o ACS He has extensive history of CAD s/p CABG and reports cardiac stent implant 4mos ago - serial troponin negative. - Cardiology consulted, appreciate recommendations; plan for stress test/ echo pending. - Continuous cardiac monitoring - ASA, Statin and Coreg. - NTG/Morphine as needed. Hypoxia c/o SOB w/ acute hypoxia, O2 sat 88% on RA, s/p DuoNeb w/ improvement, no reported h/o COPD. Concern for CHF - CXR w/ likely atelectasis, mild cardiac silhouette enlargement. IS at bedside, encourage hourly use - BNP mildly elevated, s/p Lasix 20mg IV w/ good diuresis. Continue on IV Lasix. Monitor electrolytes. Strict I&Os. - Continue DuoNeb prn - Check Echo to eval for cardiomyopathy/heart failure. - Monitor O2. Afib on Xarelto - rate controlled - continue on Amiodarone- Xarelto on hold in case he may need to proceed with cardiac cath. - continue to monitor HR ?DELFINO on CKD - Creatinine 1.33, no previous labs for comparison. - UA unremarkable - avoid nephrotoxic agents. - continue to monitor kidney function HTN: Uncontrolled. BP 170s - Resumed home medications -will consider adding norvasc if BP remains elevated. - Hydralazine prn with parameters - monitor BP and adjust treatment accordingly DVT Prophylaxis: Patient is on Xarelto ( on hold for now-pending the stress test and cardiology recommendations). Problem Qualifiers (1) Chest pain: Qualified Codes: R07.2 - Precordial pain Amada Fletcher MD Oct 27, 2017 08:02
[2017-10-27] MEDS: DOCUSATE SODIUM 50 MG/SENNA 8.6 MG TAB PO SCH ×2 (09:00→20:52)
[2017-10-27] MEDS ORDERED: REGADENOSON INJ 0.4 MG/5 ML SYR ONE (09:31)
--- NOTE | 2017-10-27 10:53 | RADRPT ---
EXAM DATE/TIME: 10/27/2017 09:18 [facility] COMPARISON: No previous studies available for comparison. INDICATIONS : Chest pain for 1 day. Coronary atherosclerosis. Coronary artery disease. DOSE: 25.4 mCi Tc99m Myoview at stress. 8.5 mCi Tc99m Myoview at rest. 0.4 mg Lexiscan STRESS SYMPTOMS: Shortness of breath. EJECTION FRACTION: 34% MEDICAL HISTORY : Hypertension. SURGICAL HISTORY : Pacemaker. CABG ENCOUNTER: Initial ACUITY: 1 day PAIN SCALE: 6/10 LOCATION: Bilateral chest TECHNIQUE: The patient underwent pharmacologic stress with infusion of prescribed dose. Continuous ECG tracing was monitored during stress. Gated SPECT imaging was performed after stress and conventional SPECT i maging was performed at rest. The examination was performed on a SPECT/CT scanner, both attenuation and non-corrected datasets were reviewed. FINDINGS: DISTRIBUTION: The maximum perfused segment at stress is in the inferior wall. Perfusion defect in the anterior/apic al wall. PERFUSION STUDY: Mild focal stress induced perfusion defect in the septal wall GATED STUDY: There is intact wall motion and thickening without hypokinetic or dyskinetic segments. CONCLUSION: 1. 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 2. Focal ischemia in the septal wall. 3. Global hypokinesia with significantly reduced EF of 34%. RISK CATEGORY: High (>3% Annual Mortality Rate) Dino Coyne MD on October 27, 2017 at 10:47 Board Certified Radiologist. This report was verified electronically.
[2017-10-27] MEDS: ASPIRIN EC 81 MG TABEC PO SCH (11:57)
[2017-10-27] MEDS: FUROSEMIDE 20 MG/2 ML VIAL IV PUSH SCH ×2 (11:57→18:31)
[2017-10-27] MEDS: MULTIVITAMIN TAB PO SCH (11:58)
[2017-10-27] MEDS: AMIODARONE 200 MG TAB PO SCH (11:59)
[2017-10-27] MEDS: GABAPENTIN 300 MG CAP PO SCH ×3 (11:59→18:45)
[2017-10-27] MEDS: SODIUM CHLORIDE 0.9% FLUSH 10 ML FLUSH IV FLUSH SCH ×2 (12:00→20:52)
[2017-10-27] MEDS: PRAVASTATIN SOD 20 MG TAB PO SCH (12:00)
[2017-10-27] MEDS: CARVEDILOL 6.25 MG TAB PO SCH (12:00)
[2017-10-27] MEDS ORDERED: NIFEdipine 30 MG SUSTAINED RELEASE TAB PO ONE (16:45)
--- NOTE | 2017-10-27 16:47 | ECHRPT ---
Indication: CARDIOMYOPATHY CONCLUSIONS There is diffuse global hypokinesis with distinct regional wall motion abnormalities. The left ventricular systolic function is severely reduced with an estimated ejection fraction in th e range of 25-30%. Coz-us-bgoszp anteroseptal, apical, anterior, and inferoapical (LAD territory) akinesis.The left atr ial size is lxay-so-gwcpufyjka dilated. Yqjo-ry-wsdrkgry mitral valve regurgitation. Trace aortic valve regurgitation. There is trace tricuspid valve regurgitation. BP: 141 / 76 HR: 97 Rhythm: MEASUREMENTS (Male / Female) Normal Values Technical Quality: 2D ECHO LV Diastolic Diameter PLAX 5.6 cm 4.2 - 5.9 / 3.9 - 5.3 cm LV Systolic Diameter PLAX 4.3 cm IVS Diastolic Thickness 0.6 cm 0.6 - 1.0 / 0.6 - 0.9 cm LVPW Diastolic Thickness 0.7 cm 0.6 - 1.0 / 0.6 - 0.9 cm LV Relative Wall Thickness 0.2 RV Internal Dim ED PLAX 1.8 cm LVOT Diameter 1.9 cm Aortic Root Diameter 2.7 cm LA Systolic Diameter LX 3.9 cm 3.0 - 4.0 / 2.7 - 3.8 cm M-MODE AV Cusp Separation MM 2.0 cm DOPPLER AV Peak Velocity 95.1 cm/s AV Peak Gradient 3.6 mmHg AV Mean Gradient 2.0 mmHg AV Velocity Time Integral 21.2 cm LVOT Peak Velocity 88.0 cm/s LVOT Peak Gradient 3.1 mmHg LVOT Velocity Time Integral 18.9 cm LVOT Cardiac Index 2745.4 cm/minm AV Area Cont Eq vti 2.5 cm AV Area Cont Eq pk 2.6 cm LV E' Lateral Velocity 5.7 cm/s LV E' Septal Velocity 5.3 cm/s TR Peak Velocity 212.0 cm/s TR Peak Gradient 18.0 mmHg Right Atrial Pressure 10.0 mmHg Pulmonary Artery Systolic Pressu 28.0 mmHg Right Ventricular Systolic Press 28.0 mmHg FINDINGS LEFT VENTRICLE There is diffuse global hypokinesis with distinct regional wall motion abnormalities. The left ventricular systolic function is severely reduced with an estimated ejection fraction in th e range of 25-30%. Bon-th-ihpgsk anteroseptal, apical, anterior, and inferoapical (LAD territory) akinesis. RIGHT VENTRICLE Normal right ventricular size and systolic function. LEFT ATRIUM The left atrial size is uyal-nq-dozjpqbmqh dilated. RIGHT ATRIUM The right atrial size is normal. ATRIAL SEPTUM Normal atrial septal thickness without atrial level shunting by limited color doppler interrogation. AORTA The aortic root and proximal ascending aorta are normal in size on limited imaging. MITRAL VALVE Ivfb-mw-pasupoiv mitral valve regurgitation. AORTIC VALVE Trace aortic valve regurgitation. TRICUSPID VALVE There is trace tricuspid valve regurgitation. PULMONARY VALVE No pulmonary valve regurgitation or stenosis. VESSELS The inferior vena cava is normal in size. PERICARDIUM No pericardial effusion. Vipul Lagos MD, FACC (Electronically Signed) Final Date:27 October 2017 16:46
[2017-10-27] MEDS ORDERED: TAMSULOSIN HCL 0.4 MG CAP PO ONE (20:30)
[2017-10-27] MEDS ORDERED: TAMS0.4C4 PO (20:48)
[2017-10-28 00:07] VITALS: PULSE 63
[2017-10-28 00:10] VITALS: BP 136/69; PULSE 67; RESP 18; TEMP 97.8; O2SAT 95
[2017-10-28 03:59] VITALS: BP 138/74; PULSE 62; RESP 18; TEMP 98.4; O2SAT 95
[2017-10-28 04:26] VITALS: PULSE 57
[2017-10-28 07:23] VITALS: PULSE 59
--- NOTE | 2017-10-28 08:42 | HHI.PR ---
Subjective Remarks in no acute distress. on and off mild sob. denies chest pain. Objective Vitals Vital Signs Date Time Temp Pulse Resp B/P (MAP) Pulse Ox O2 Delivery O2 Flow Rate FiO2 10/28/17 07:23 59 10/28/17 04:26 57 10/28/17 03:59 98.4 62 18 138/74 (95) 95 10/28/17 00:10 97.8 67 18 136/69 (91) 95 10/28/17 00:07 63 10/27/17 20:02 63 10/27/17 19:52 98.1 76 18 105/61 (76) 94 10/27/17 18:33 60 136/80 (98) 10/27/17 16:04 97.8 54 18 183/86 (118) 95 10/27/17 13:05 98.0 58 18 186/72 (110) 96 10/27/17 12:15 62 I/O 10/27/17 10/27/17 10/27/17 10/28/17 10/28/17 10/28/17 07:00 15:00 23:00 07:00 15:00 23:00 Intake Total 480 ml Output Total 300 ml 350 ml 300 ml 550 ml Balance -300 ml -350 ml -300 ml -70 ml Intake Oral 480 ml Output Urine Total 300 ml 350 ml 300 ml 550 ml # Bowel Movements 0 Result Diagram: 10/27/17 0505 10/27/17 0505 Imaging Last Impressions Myocardial Perfusion Scan Nuc Med 10/27/17 0000 Signed Impressions: Service Date/Time: Friday, October 27, 2017 09:18 - CONCLUSION: 1. 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 2. Focal ischemia in the septal wall. 3. Global hypokinesia with significantly reduced EF of 34%%. RISK CATEGORY: High (>3%% Annual Mortality Rate) Dino Coyne MD Chest X-Ray 10/26/17 0124 Signed Impressions: Service Date/Time: Thursday, October 26, 2017 01:43 - CONCLUSION: 1. Mild medial bilateral lower lobe opacity likely representing atelectasis. 2. Mild cardiac silhouette enlargement. Jacinto Jaquez MD Objective Remarks GENERAL: This is a well-nourished, well-developed patient, in no apparent distress. CARDIOVASCULAR: Regular rate and regular rhythm without murmurs, gallops, or rubs. RESPIRATORY: Clear to auscultation. Breath sounds equal bilaterally. No wheezes , rales, or rhonchi. GASTROINTESTINAL: Abdomen soft, non-tender, nondistended. Normal, active bowel sounds MUSCULOSKELETAL: Extremities without clubbing, cyanosis, or edema. NEURO: Alert & Oriented x4 to person, place, time, situation. Moves all ext x4 Medications and IVs Inpatient Medications Acetaminophen (Tylenol) 650 mg Q6H PRN PO FEVER/PAIN SCALE 1 TO 2; Start at 03:30 Acetaminophen/ Hydrocodone Bitart ([place] 5-325 Mg) 1 tab Q4H PRN PO PAIN SCALE 3 TO 5 Last administered on 10/26/17at 15:16; Start 10/26/17 at 03:30 Albuterol/ Ipratropium (Duoneb Neb) 1 ampule Q4HR NEB PRN NEB SOB/WHEEZING; Start 10/26/17 at 03:30 Amiodarone HCl (Cordarone) 100 mg DAILY PO Last administered on 10/27/17at 11:59 ; Start 10/26/17 at 09:00 Aspirin (Ecotrin Ec) 81 mg DAILY PO Last administered on 10/27/17 11:57; Start 10/26/17 at 09:00 Bisacodyl (Dulcolax Supp) 10 mg DAILY PRN RECTAL SEVERE CONSITIPATION/ IF NPO; Start 10/26/17 at 03:30 Carvedilol (Coreg) 6.25 mg DAILY PO Last administered on 10/27/17at 12:00; Start 10/26/17 at 09:00 Furosemide (Lasix Inj) 20 mg BID@,18 IV PUSH Last administered on 10/27/17at 18 :31; Start 10/26/17 at 09:00 Gabapentin (Neurontin) 300 mg TID PO Last administered on 10/27/17 11:59; Start 10/26/17 at 09:00 Heparin Sodium (Porcine) (Heparin Inj) 5,000 units Q12H SQ ; Start 10/26/17 at 09 :00; Stop 10/26/17 at 10:21; Status DC Lactulose (Lactulose Liq) 30 ml DAILY PRN PO SEVERE CONSITIPATION/ IF PO; Start 10/26/17 at 03:30 Magnesium Hydroxide (Milk Of Magnesia Liq) 30 ml Q12H PRN PO Mild constipation ; Start 10/26/17 at 03:30 Morphine Sulfate (Morphine Inj) 2 mg Q3H PRN IV PUSH Pain 6-10 Last administered on 10/26/17at 21:18; Start 10/26/17 at 03:30 Multivitamins (Theragran) 1 tab DAILY PO Last administered on 10/27/17at 11:58; Start 10/26/17 at 09:00 Nifedipine (Procardia Xl) 30 mg NOW ONCE PO Last administered on 10/27/17 17: 05; Start 10/27/17 at 16:45; Stop 10/27/17 at 16:46; Status DC Nitroglycerin (Nitroglycerin 2% Oint) 0.5 inch Q6HR PRN TOPICAL CHEST PAIN; Start 10/26/17 at 03:30 Ondansetron HCl (Zofran Inj) 4 mg Q6H PRN IVP NAUSEA OR VOMITING; Start at 03:30 Pravastatin Sodium (Pravachol) 20 mg DAILY PO Last administered on 10/27/17 12: 00; Start 10/26/17 at 09:00 Rivaroxaban (Xarelto) 10 mg DAILY PO Last administered on 10/26/17 15:17; Start 10/26/17 at 11:00; Status Future Hold Senna/Docusate Sodium ([place]-Colace) 1 tab BID PO Last administered on 10/26/17at 11:43; Start 10/26/17 at 09:00 Sennosides (Senokot) 17.2 mg Q12H PRN PO Moderate constipation; Start 10/26/17 at 03:30 Sodium Chloride (NS Flush) 2 ml BID IV FLUSH Last administered on 10/27/17 20: 52; Start 10/26/17 at 09:00 Tamsulosin HCl (Flomax) 0.4 mg ONCE ONCE PO Last administered on 10/27/17 20: 52; Start 10/27/17 at 20:30; Stop 10/27/17 at 20:31; Status DC A/P Problem List: (1) Chest pain ICD Code: R07.9 - Chest pain, unspecified Status: Acute (2) Hypoxia ICD Code: R09.02 - Hypoxemia (3) Renal insufficiency ICD Code: N28.9 - Disorder of kidney and ureter, unspecified (4) HTN (hypertension) ICD Code: I10 - Essential (primary) hypertension Assessment and Plan Chest Pain, atypical, r/o ACS He has extensive history of CAD s/p CABG and reports cardiac stent implant 4mos ago - serial troponin negative. - stress test with focal ischemia septal wall- d/w ; plan for cardiac cath today. - Continuous cardiac monitoring - ASA, Statin and Coreg. - NTG/Morphine as needed. Hypoxia c/o SOB w/ acute hypoxia, O2 sat 88% on RA, s/p DuoNeb w/ improvement, no reported h/o COPD. Concern for CHF - CXR w/ likely atelectasis, mild cardiac silhouette enlargement. IS at bedside, encourage hourly use - BNP mildly elevated, s/p Lasix 20mg IV w/ good diuresis. Continue on IV Lasix. Monitor electrolytes. Strict I&Os. - Continue DuoNeb prn - echo with EF 25% - Monitor O2. Afib on Xarelto - rate controlled - continue on Amiodarone- Xarelto on hold in case he may need to proceed with cardiac cath. - continue to monitor HR ?DELFINO on CKD - Creatinine 1.33, no previous labs for comparison. - UA unremarkable - avoid nephrotoxic agents. - continue to monitor kidney function HTN: Uncontrolled. BP 170s - Resumed home medications -will add lisinopril- - Hydralazine prn with parameters - monitor BP and adjust treatment accordingly DVT Prophylaxis: Patient is on Xarelto ( on hold for now-pending the stress test and cardiology recommendations). Problem Qualifiers (1) Chest pain: Qualified Codes: R07.2 - Precordial pain Amada Fletcher MD Oct 28, 2017 08:42
[2017-10-28 08:45] VITALS: BP 145/57; PULSE 63; RESP 18; TEMP 97.8; O2SAT 95
[2017-10-28] MEDS: CARVEDILOL 6.25 MG TAB PO SCH (09:12)
[2017-10-28] MEDS: GABAPENTIN 300 MG CAP PO SCH ×2 (09:13→13:00)
[2017-10-28] MEDS: PRAVASTATIN SOD 20 MG TAB PO SCH (09:13)
[2017-10-28] MEDS: AMIODARONE 200 MG TAB PO SCH (09:13)
[2017-10-28] MEDS: ASPIRIN EC 81 MG TABEC PO SCH (09:13)
[2017-10-28] MEDS: MULTIVITAMIN TAB PO SCH (09:13)
[2017-10-28] MEDS: FUROSEMIDE 20 MG/2 ML VIAL IV PUSH SCH (09:14)
[2017-10-28] MEDS: SODIUM CHLORIDE 0.9% FLUSH 10 ML FLUSH IV FLUSH SCH (09:15)
[2017-10-28] MEDS: DOCUSATE SODIUM 50 MG/SENNA 8.6 MG TAB PO SCH (09:15)
[2017-10-28] MEDS ORDERED: MIDAZOLAM HCL 2 MG/2 ML VIAL ONE ×2 (09:39→09:56)
[2017-10-28] MEDS ORDERED: HEPARIN-NS/PF INJ 1,000 ML ONE (09:39)
[2017-10-28] MEDS ORDERED: HEPARIN SODIUM - IV 10,000 UNITS/10 ML VIAL ONE (10:03)
[2017-10-28] MEDS ORDERED: VERAPAMIL HCL 5 MG/2 ML VIAL ONE (10:03)
[2017-10-28] MEDS ORDERED: NITROGLYCERIN INJ 5 ML ONE (10:03)
--- NOTE | 2017-10-28 10:47 | CATHPROC ---
[employer] HIS Report Study Information Study Number Admission Scheduled Start Study Start [id number] Oct 26 2017 3:17AM 10/28/2017 Oct 28 2017 9:02AM [place] Service Cardiac Catheterization Admit Source Facility Department Emergency department [facility] - Investment Consultant Physician and Clinical Staff Initial MD Vernon, Aman Applications Engineering Manager Nola Bowman BSN Other cathlab, cathlab Recorder Daly Muniz,FILLER MIXER TECH2 Recorder Harmony Marion ,(R) Scrub Devante Lewis RCIS(BS) Procedures Performed Procedure Location (Site) Vessel Name Coronary Angiograms LCA Left Coronary Coronary Angiograms RCA Right Coronary Coronary Angiograms LUI-LAD Left Coronary Coronary Angiograms Gft. Stump 1 SVG Graft Wire insertion Fem Art (right) Femoral Art Equipment Time Tufter Hand Description Size Mfg Part Number Used/Scraped TRANSDUCER, TRUWAVE [id number] 09:23 [employer]VEDO GALLOWAY * Used W/STOCKCOCK *[id number] INTRODUCER SET, 09:23 [employer] FR 5 [id number] *[id number] Used MICROPUNCTURE, STIFFENED [id number] *[id number] [id number] *[id number] 09:23 [employer] INDUSTRIES PACK, CCL CUSTOM * Used *[id number] 10:18 [employer] JL 4.0 DXTERITY CATHETER FR 5 Used *[id number] BAND, RADIAL COMPRESSION TR [id number] 10:27 [employer] MEDICAL 24CM Used SHORT 24 *[id number] 09:23 [employer] MEDICAL WIRE, 3MMJ .035 180CM 180CM Used *[id number] 09:23 NAMIC MANIFOLD, 4 PORT * Used *[id number] 09:23 [employer]COMED OMNIPAQUE, 350 MG, 150ML 150ML [id number] Used [id number] 09:23 [employer]OPEZ MEDICAL BLANKET,WARM AIR CCL * Used *[id number] 09:23 TERUMO MEDICAL SHEATH, FR6 TERUMO (10CM) FR 6 Used *[id number] SHEATH, FR6 TRANSRADIAL .021 [id number] 10:10 [employer]UM[employer] MEDICAL FR 6 Used 16CM *[id number] Equipment Model, Serial, Lot Number and Expiration Data Description Model Number Serial Number Lot Number Expiration Date JL 4.0 DXTERITY CATHETER [id number] 05-21-2020 History: Current Medications Medication Dosage/Unit Route Frequency Last Date/Time Taken Statins (any) Beta Christian ASA XARELTO History: Risk Factors Family History of Hypertension Previous Heart Failure Premature CAD Yes No Yes Prior Valve Prior PCI Prior PCIDate Prior CABG Surgery No Yes 06/28/2017 Yes Cerebrovascular Peripheral Artery Chronic Lung On Dialysis Diabetes Disease Disease Disease No No No No No History: Stress Tests Stress or Imaging Studies Performed Yes Standard Exercise Stress Test No Stress Echo No Stress Test SPECT Stress Test SPECT Result Stress Test SPECT Ischemia Risk/Extent Yes Positive High Stress Test CMR No Cardiac CTA Coronary Calcium Score No No History: Arrhythmias Selection Items Atrial fibrillation History: Other Current Smoker Quit Packs a Day Years Used Pack Years No 2 Years Ago 1 50 50 Labs Hgb (g/dl) Hct (%) WBC (l/cumm) Platelets (thousands) 11.60-17.00 35.00-51.00 4.00-11.00 150.00-450.00 12.7 37.8 17.4 180 Glucose (mg/dl) BUN (mg/dl) Creatinine (mg/dl) BUN:Creatinine (1:x) 74.00-106.00 7.00-18.00 0.50-1.30 10.00-20.00 95 39 1.2 32.5 Na (meq/l) K (meq/l) 136.00-145.00 3.50-5.10 140 4.3 Troponin I (ng/ml) CPK (u/l) CPK-MB (ng/ML) 0.02-0.05 26.00-308.00 0.50-3.60 0.02 163 4.1 Medication Medication Total Dose (Bolus/Oral) Medication Total Dosage/Unit 1% XYLOCAINE 40 mL FENTANYL 100 mcg RADIAL COCKTAIL 5 mL (Bolus) VERSED 3 mg Medications (Bolus/Oral) Medication Time Given Dosage/Unit Administered By Reason VERSED 10/28/2017 9:54:26 AM 2 mg Nola Bowman 2 mg VERSED given in lab by Nola oBwman BSN in Right Antecubital via Peripheral IV. Ordered by Aman Vernon. 1% XYLOCAINE 10/28/2017 9:54:33 AM 20 mL Aman Vernon 20 mL 1% XYLOCAINE given in lab by Aman Vernon in Right Groin via Subcutaneous. FENTANYL 10/28/2017 9:55:24 AM 50 mcg Nola Bowman 50 mcg FENTANYL given in lab by Nola Bowman BSN in Right Antecubital via Peripheral IV. Orde red by Aman Vernon. FENTANYL 10/28/2017 9:58:41 AM 25 mcg Nola Bowman 25 mcg FENTANYL given in lab by Nola Bowman BSN in Right Antecubital via Peripheral IV. Orde red by Aman Vernon. 1% XYLOCAINE 10/28/2017 10:08:03 AM 20 mL Aman Vernon 20 mL 1% XYLOCAINE given in lab by Aman Vernon in Left Radial via Subcutaneous. Ordered by Aman Nayak. Ntg 200mcg Verapamil 2.5mg Heparin RADIAL COCKTAIL 10/28/2017 10:11:04 AM 5 mL (Bolus) Aman Vernon 2500U 5 mL (Bolus) RADIAL COCKTAIL given in lab by Aman Vernon in Left Radial via Radial. Using [Solu tion Name]. Ordered by Aman Vernon. Reason: Ntg 200mcg Verapamil 2.5mg Heparin 2500U. VERSED 10/28/2017 10:11:35 AM 1 mg Nola Bowman 1 mg VERSED given in lab by Nola Bowman BSN in Right Antecubital via Peripheral IV. Ordered by Aman Vernon. FENTANYL 10/28/2017 10:12:55 AM 25 mcg Nola Bowman 25 mcg FENTANYL given in lab by Nola Bowman BSN in Right Antecubital via Peripheral IV. Orde red by Aman Vernon. Medication (Drip) Medication Time Given Dosage/Unit Concentration/Unit Diluent (ml) Solutio n IV Solutions 10/28/2017 9:37:58 AM 0 mL (IV) 500 NaCl .9 Patient arrived on IV Solutions in Right Antecubital via Peripheral IV. Pump/Drip Flow = 20 ml/hr usi ng NaCl .9. Initial Case Assessment Cardiovascular HR Rhythm NIBP Chest Pain 64 sinus 155/79 0 Circulatory - Right Pulses Dorsalis Pedis Femoral Radial 2 2 2 Scale (0,1,2,3,4,d) Circulatory - Left Pulses Dorsalis Pedis Femoral Radial 2 2 2 Scale (0,1,2,3,4,d) Neurological State Oriented to time-place- Alert Moves all extremities person Respiration - General Respiration Rate SpO2 (%) (B/min) 12 95 Final Case Assessment Cardiovascular HR Rhythm NIBP Chest Pain 61 sinus 133/76 0 Circulatory - Right Pulses Dorsalis Pedis Femoral Radial 2 2 2 Scale (0,1,2,3,4,d) Circulatory - Left Pulses Dorsalis Pedis Femoral Radial 2 2 2 Scale (0,1,2,3,4,d) Neurological State Oriented to time-place- Alert Moves all extremities person Respiration - General Respiration Rate SpO2 (%) (B/min) 16 92 Chronological Log Time Study Chronological Log 9:30:11 Patient arrived via Bed. 9:30:33 Patient Name, D.O.B, / Armband Verified By R.N. 9:33:37 Allens test performed on the right radial and ulnar artery. 9:33:41 Allens test performed on the left radial and ulnar artery. 9:36:20 Pre-op and post- op instructions given; patient acknowledges understanding of instructions. 9:36:22 Verbal Stimulation=2 Physical Stimulation=2 Airway=2 Respiration=2 TOTAL=8. (0=absent, 1=hunter ited, 2=present) 9:36:38 Presedation assessment performed by Investment Consultant RN. 9:37:42 Patient has been NPO for Less than 6Hrs. 9:37:44 Skin Breakdown- bilateral groin scars noted. 9:37:48 Tracy Prominences Protected 9:37:56 A # 18 IV was noted in the Antecubital (right). Grade = patent 9:37:58 Patient arrived on IV Solutions in Right Antecubital via Peripheral IV. Pump/Drip Flow = 20 ml/hr using NaCl .9. 9:37:59 History and physical on the chart or being dictated. Vitals capture started with the following parameters, Patient=Adult, Interval=5 min, Initial Pr xrstty=268 mmHg, 9:45:48 Deflation Rate=5 mmHg, Cuff placed on Left Arm 9:46:17 Consent signed by the physician and the patient and verified by the Investment Consultant staff. 9:46:32 HR=65 bpm, QLXI=340/79 mmhg, SpO2=95.0 %, Resp=13 B/min, Pain=0, Schofield=2 9:46:57 Pressure channel 1 zeroed. Assessment: Initial Case, HR=64 BPM, Rhythm=sinus, VHTQ=291/79 mmhg, Chest Pain=0 Right Pulses: Brendan Ped=2, Femoral=2, Radial=2 9:47:01 Left Pulses: Brendan Ped=2, Femoral=2, Radial=2 Neurological: State=Alert, Ox3, DAVIS Respiration: Resp=12 B/min, SpO2=95 % 9:48:04 Bilateral groins prepped with 2% chlorhexidine, and draped after a 3 minute waiting time. 9:50:40 MD paged 9:51:33 HR=55 bpm, PQYZ=527/77 mmhg, SpO2=94.0 %, Resp=13 B/min 9:53:09 MD arrived. Time Out. Correct patient, correct procedure, correct physician, power injector not loaded with contrast with surgical 9:53:57 team present. Time Out Concurred by MD and individual staff in procedure. 2 mg VERSED given in lab by Nola Bowman BSN in Right Antecubital via Peripheral IV. Or dered by Jay 9:54:26 Aman Harris. 9:54:26 Case Start 9:54:33 20 mL 1% XYLOCAINE given in lab by Aman Vernon in Right Groin via Subcutaneous. 9:54:57 Reference ECG taken 50 mcg FENTANYL given in lab by Nola Bowman BSN in Right Antecubital via Peripheral IV . Ordered by Jay 9:55:24 KimberlyAman phillips. 9:56:32 HR=72 bpm, BKAK=731/87 mmhg, SpO2=90.0 %, Resp=21 B/min 9:57:06 Access site was Right Femoral Artery. A INTRODUCER SET, MICROPUNCTURE, STIFFENED FR 5 was advanced into the Fem Art (right) using the 9:57:31 Percutaneous technique. 9:57:44 An injection in the Fem Art (right) was made through the INTRODUCER SET, MICROPUNCTURE, STIF FENED FR 5. :58:35 Sheath removed; pressure applied to access site. 25 mcg FENTANYL given in lab by Nola Bowman BSN in Right Antecubital via Peripheral IV . Ordered by Jay 9:58:41 Aman Harris. Vitals capture started with the following parameters, Patient=Adult, Interval=5 min, Initial Pr oxaacb=943 mmHg, :02:28 Deflation Rate=5 mmHg, Cuff placed on Left Arm 10:03:07 HR=62 bpm, GCYJ=925/84 mmhg, Resp=18 B/min 10:07:30 Left radial prepped with 2% chlorhexidine, and draped after a 3 min. waiting time. 20 mL 1% XYLOCAINE given in lab by Aman Vernon in Left Radial via Subcutaneous. Ordered b y Saulo, 10:08:03 Aman. 10:08:04 HR=60 bpm, PXHQ=098/95 mmhg, Resp=16 B/min 10:09:19 Access site was Radial Artery. Left 10:10:01 A SHEATH, FR6 TRANSRADIAL .021 16CM FR 6 was advanced into the Radial (left) using the Perc utaneous technique. 5 mL (Bolus) RADIAL COCKTAIL given in lab by Aman Vernon in Left Radial via Radial. Using [Solution Name]. 10:11:04 Ordered by Aman Vernon. Reason: Ntg 200mcg Verapamil 2.5mg Heparin 2500U. A JR 4.0 INFINITI CATHETER FR 5 was advanced over a wire. OMNIPAQUE, 350 MG, 150ML 150ML was us ed for :11:08 injections. 1 mg VERSED given in lab by Nola Bowman BSN in Right Antecubital via Peripheral IV. Or dered by Jay 10:11:35 Aman Harris. 10:12:25 The LUI-LAD was injected and visualized at various angles. OMNIPAQUE, 350 MG, 150ML 150ML used. 25 mcg FENTANYL given in lab by Nola Bowman BSN in Right Antecubital via Peripheral IV . Ordered by Hoff- 10:12:55 Kimberly, Aman. 10:13:07 HR=64 bpm, RDOC=247/70 mmhg, Resp=16 B/min 10:13:11 A WIRE, 3MMJ .035 180CM 180CM was inserted via Fem Art (right). Recorded Pressure: Ao, HR=61, Condition=Condition 1 10:14:20 (Aorta) Ao 115/58/82 10:15:44 The RCA was injected and visualized at various angles. OMNIPAQUE, 350 MG, 150ML 150ML used . 10:16:35 The Gft. Stump 1 was injected and visualized at various angles. OMNIPAQUE, 350 MG, 150ML 15 0ML used. 10:18:06 HR=58 bpm, PAFZ=081/73 mmhg, Resp=18 B/min After removing the current catheter a JL 4.0 DXTERITY CATHETER FR 5 was advanced over a WIRE, 3 MMJ .035 180CM 10:18:18 180CM. 10:19:59 The LCA was injected and visualized at various angles. OMNIPAQUE, 350 MG, 150ML 150ML used . After removing the current catheter a AL 1 INFINITI CATHETER FR 5 was advanced over a WIRE, 3MM J .035 180CM 10:22:16 180CM. 10:23:07 HR=66 bpm, AYXO=344/69 mmhg, Resp=19 B/min 10:24:52 Catheter was removed 10:26:45 Case End Radial Compression Device Used. 12 mLs of air placed in BAND, RADIAL COMPRESSION TR SHORT 24 24 CM. Affected 10:27:45 hand 92 % O2 saturation. 10:28:45 HR=63 bpm, CUUZ=803/76 mmhg, SpO2=92 %, Resp=12 B/min 10:28:48 No case complications noted. 10:28:51 Cine recording checked. Assessment: Final Case, HR=61 BPM, Rhythm=sinus, UPQD=256/76 mmhg, Chest Pain=0 Right Pulses: Brendan Ped=2, Femoral=2, Radial=2 10:28:52 Left Pulses: Brendan Ped=2, Femoral=2, Radial=2 Neurological: State=Alert, Ox3, DAVIS Respiration: Resp=16 B/min, SpO2=92 % 10:33:40 HR=58 bpm, TXOA=646/66 mmhg, SpO2=95.0 %, Resp=16 B/min 10:39:40 Patient moved to bed 10:41:55 Patient transported to DOCU End Study - Contrast Media Used In Study Contrast Total Opened (mL) Total Used (mL) Total Wasted (mL) Omnipaque 80 80 0 End Study - Maximum Contrast Load Max Contrast Load (mL) 312.5 End Study - Radiation Exposure Fluoro Time (minutes) 9.7 End Study - Sheaths Sheaths Pulled By Sheath Hold Time (min) Devante Lewis End Study - Patient Disposition Complications Transferred To Interventional Outcome No Telemetry Bed No attempt made
[2017-10-28] MEDS ORDERED: IOHEXOL 350 MG/ML 100 ML BTL (for Cath Lab) OTHER ONE (11:17)
--- NOTE | 2017-10-28 11:23 | PD.CARD.PN ---
Subjective Subjective Remarks s/p [facility] refer to report for details Objective Medications Current Medications Medications (Trade) Dose Ordered Sig/Eliot Route Start Time Stop Time Status Last Admin (NS Flush) 2 ml UNSCH PRN IVF 10/26/17 01:30 (Lasix Inj) 20 mg BID@,18 IV PUSH 10/26/17 09:00 10/28/17 09:14 (Duoneb Neb) 1 ampule Q4HR NEB PRN NEB 10/26/17 03:30 (Nitroglycerin 2% Oint) 0.5 inch Q6HR PRN TOPICAL 10/26/17 03:30 (NS Flush) 2 ml UNSCH PRN IV FLUSH 10/26/17 03:30 (NS Flush) 2 ml BID IV FLUSH 10/26/17 09:00 10/28/17 09:15 (Zofran Inj) 4 mg Q6H PRN IVP 10/26/17 03:30 (Tylenol) 650 mg Q6H PRN PO 10/26/17 03:30 ([place] 5-325 Mg) 1 tab Q4H PRN PO 10/26/17 03:30 10/26/17 15:16 (Morphine Inj) 2 mg Q3H PRN IV PUSH 10/26/17 03:30 10/26/17 21:18 (Lillian-Colace) 1 tab BID PO 10/26/17 09:00 10/26/17 11:43 (Milk Of Magnesia Liq) 30 ml Q12H PRN PO 10/26/17 03:30 (Senokot) 17.2 mg Q12H PRN PO 10/26/17 03:30 (Dulcolax Supp) 10 mg DAILY PRN RECTAL 10/26/17 03:30 (Lactulose Liq) 30 ml DAILY PRN PO 10/26/17 03:30 (Cordarone) 100 mg DAILY PO 10/26/17 09:00 10/28/17 09:13 (Ecotrin Ec) 81 mg DAILY PO 10/26/17 09:00 10/28/17 09:13 (Coreg) 6.25 mg DAILY PO 10/26/17 09:00 10/28/17 09:12 (Neurontin) 300 mg TID PO 10/26/17 09:00 10/28/17 09:13 (Theragran) 1 tab DAILY PO 10/26/17 09:00 10/28/17 09:13 (Pravachol) 20 mg DAILY PO 10/26/17 09:00 10/28/17 09:13 (Xarelto) 10 mg DAILY PO 10/26/17 11:00 Future Hold 10/26/17 15:17 (Prinivil) 5 mg DAILY PO 10/29/17 09:00 Vital Signs / I&O Vital Signs Date Time Temp Pulse Resp B/P (MAP) Pulse Ox O2 Delivery O2 Flow Rate FiO2 10/28/17 08:45 97.8 63 18 145/57 (86) 95 10/28/17 07:23 59 10/28/17 04:26 57 10/28/17 03:59 98.4 62 18 138/74 (95) 95 10/28/17 00:10 97.8 67 18 136/69 (91) 95 10/28/17 00:07 63 10/27/17 20:02 63 10/27/17 19:52 98.1 76 18 105/61 (76) 94 10/27/17 18:33 60 136/80 (98) 10/27/17 16:04 97.8 54 18 183/86 (118) 95 10/27/17 13:05 98.0 58 18 186/72 (110) 96 10/27/17 12:15 62 I/O 10/27/17 10/27/17 10/27/17 10/28/17 10/28/17 10/28/17 06:59 14:59 22:59 06:59 14:59 22:59 Intake Total 480 ml Output Total 300 ml 350 ml 300 ml 550 ml Balance -300 ml -350 ml -300 ml -70 ml Intake Oral 480 ml Output Urine Total 300 ml 350 ml 300 ml 550 ml # Bowel Movements 0 Physical Exam GENERAL: Well-nourished, well-developed patient. SKIN: Warm and dry. HEAD: Normocephalic. EYES: No scleral icterus. No injection or drainage. NECK: Supple, trachea midline. No JVD or lymphadenopathy. CARDIOVASCULAR: Regular rate and rhythm without murmurs, gallops, or rubs. RESPIRATORY: Breath sounds equal bilaterally. No accessory muscle use. GASTROINTESTINAL: Abdomen soft, non-tender, nondistended. EXTREMITIES: No cyanosis, or edema. NEUROLOGICAL: Awake, alert, and oriented x 3. Non-focal. Imaging Last Impressions Myocardial Perfusion Scan Nuc Med 10/27/17 0000 Signed Impressions: Service Date/Time: Friday, October 27, 2017 09:18 - CONCLUSION: 1. 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 2. Focal ischemia in the septal wall. 3. Global hypokinesia with significantly reduced EF of 34%%. RISK CATEGORY: High (>3%% Annual Mortality Rate) Dino Coyne MD Chest X-Ray 10/26/17 0124 Signed Impressions: Service Date/Time: Thursday, October 26, 2017 01:43 - CONCLUSION: 1. Mild medial bilateral lower lobe opacity likely representing atelectasis. 2. Mild cardiac silhouette enlargement. Jacinto Jaquez MD Assessment and Plan Problem List: (1) Chest pain ICD Codes: R07.9 - Chest pain, unspecified Status: Acute Plan: s/p [facility] diffuse [place] vessel CAD patent RCA and LCx and patent LUI to LAD. Recommendations: 1. Cont ASA 2. Cont OAC 3. Cont BB, ACEi 4. Start Imdur 5.Follow up with Livestock Handler upon discharge (2) CHF with unknown LVEF ICD Codes: I50.9 - Heart failure, unspecified Status: Acute (3) CHF (congestive heart failure) ICD Codes: I50.9 - Heart failure, unspecified (4) Renal insufficiency ICD Codes: N28.9 - Disorder of kidney and ureter, unspecified (5) HTN (hypertension) ICD Codes: I10 - Essential (primary) hypertension Problem Qualifiers (1) Chest pain: Qualified Codes: R07.2 - Precordial pain Aman Vernon MD Oct 28, 2017 11:23
--- NOTE | 2017-10-28 11:44 | MA ---
cc: ALEXANDREA HAMLIN DATE OF 1945 DATE OF PROCEDURE October 28, 2017 PROCEDURE PERFORMED 1. Selective right and left coronary angiography. 2. Selective saphenous vein graft and LUI angiography. 3. Selective right common femoral artery angiography. INDICATION Angina. Negative Stress Test/MPI. PROCEDURE DESCRIPTION Consent signed. The patient was prepared with draped in sterile fashion. Using 1% lidocaine for local anesthesia and a micropuncture kit, the right common femoral artery was cannulated. However, he has significant PAD with complete occlusion of the right common femoral artery for which the procedure was changed to a left radial procedure. For this 1% lidocaine was used for local anesthesia and a micropuncture kit was used to access the left radial artery, then a 6-Korean Slender Sheath was placed. This was followed by giving IV antispasmodic cocktail. Then selective LUI angiography was done with a JR-4 as well as selective SVG to RCA and right coronary artery. Then a JL-4 was used to engage the left main. Angiography was taken in multiple views. The patient tolerated the procedure without complications. ESTIMATED BLOOD LOSS Less than 10 cc. TOTAL CONTRAST USED 60 cc. CLOSURE The right radial access site was closed with a TR band. The right groin site was closed with manual pressure. RESULTS: 1. The right coronary artery is a dominant lesion. It has a patent stent in the proximal segment. The right coronary artery is giving off a PDA and a posterolateral branch. The PDA has a stent distally which is patent with CECILY- 3 flow. No obstructive coronary artery disease. 2. The left main is short, calcified. It does have a 50% lesion in its distal segment. 3. The proximal LAD is diffusely diseased, is giving off one diagonal vessel which is patent, tortuous, however, diffusely diseased. 4. The ramus is small and has a 50% lesion ostially. 5. The left circumflex artery is diffusely diseased. It is giving off three obtuse marginal branches. The left circumflex artery has a proximal 70% lesion , tortuous. Grafts: 1. LUI to LAD patent. It attaches to the mid of the LAD and it is filling retrograde to the proximal part of the LAD, filling also the diagonal. The LUI is free of disease. The LAD is diffusely diseased, however, no significant stenosis or lesions. There is CECILY-3 flow. 2. The SVG going to right coronary artery is occluded. 3. The SVG to the circumflex is also occluded CONCLUSIONS 1. Severe [place] coronary artery disease with patent LUI to LAD and known [place] vessel CAD. Unfortunately patient not on optimal medical therapy for ischemia and there is a question of compliance with medications. RECOMMENDATIONS 1. Continue aggressive management of CAD with aspirin, beta-blockers, nitrates and titrate up as tolerated by BP and HR. Ranexa can be in the future. 2. Cont ASA and OAC for afib 3. Followup with his staff nurse upon discharge. MD KATHY Coffey/YONATHAN /10:56 AM /11:10 AM MTDMae
[2017-10-28] MEDS ORDERED: LISI-519 PO (12:22)
[2017-10-28] MEDS ORDERED: CARV12.5 PO (12:22)
[2017-10-28] MEDS ORDERED: ISOS30TA3 PO (12:22)
--- NOTE | 2017-10-28 12:28 | HHI.DCPOC ---
Discharge Care Plan Diagnosis: (1) Chest pain (2) CHF (congestive heart failure) (3) Renal insufficiency (4) HTN (hypertension) Goals to Promote Your Health * To prevent worsening of your condition and complications * To maintain your health at the optimal level Directions to Meet Your Goals Take your medications as prescribed Follow your dietary instruction Follow activity as directed Keep your appointments as scheduled Take your immunizations and boosters as scheduled If your symptoms worsen call your PCP, if no PCP go to Urgent Care Center or Emergency Room Smoking is Dangerous to Your Health. Avoid second hand smoke Call the 24-hour hour crisis hotline for domestic abuse at Martha Kowalski PA-C Oct 28, 2017 12:28 pm
[2017-10-28] MEDS ORDERED: CARVEDILOL 12.5 MG TAB PO ONE (14:15)
[2017-10-28] MEDS ORDERED: ISOSORBIDE MONONITRATE 30 MG TAB PO ONE (14:15)
[2017-10-28] MEDS ORDERED: LISINOPRIL 5 MG TAB PO ONE (14:15)
[2017-10-29] MEDS ORDERED: ISOSORBIDE MONONITRATE 30 MG TAB PO SCH (07:00)
[2017-10-29] MEDS ORDERED: CARVEDILOL 12.5 MG TAB PO SCH (09:00)
[2017-10-29] MEDS ORDERED: LISINOPRIL 5 MG TAB PO SCH (09:00)
--- NOTE | 2017-11-01 13:44 | PQ ---
Physician Query Response Document PATIENT: SRINIVAS CHERRY : 1945 ADMIT DATE: 10/26/2017 3:17 AM DISCH DATE: 10/28/2017 3:20 PM RESPONDING PROVIDER #: [email or web address] QUERY TEXT: CHF Acuity and Type Congestive Heart Failure is documented in the Medical Record. Please document the TYPE and ACUITY (in cludes probable or suspected) Such as: Type: -- Systolic -- Diastolic -- Combined -- Other, please specify Acuity: -- Acute -- Chronic -- Acute on chronic -- Other, please specify Also please document the underlying cause of the CHF (includes probable or suspected) PLEASE CONTACT LENY W/ [facility] [place] [id number] FOR ANY QUESTIONS The patient's Clinical Indicators include: 10/26/17 Admission Diagnosis chest pain; chf 10/28/17 PROGRESS NOTE REFLECTS:Hypoxia c/o SOB w/ acute hypoxia, O2 sat 88% on RA, s/p DuoNeb w/ improvement, no reported h/o COPD. Concern for CHF - CXR w/ likely atelectasis, mild cardiac silhouette enlargement. IS at bedside, encourage hourly us e - BNP mildly elevated, s/p Lasix 20mg IV w/ good diuresis. Continue on IV Lasix. Monitor electrolyt es. - echo W/ EF 25% 10/28/17 CARDIOLOGY PROGRESS NOTE REFLECTS: CHF with unknown LVEF Status: Acute CLINICAL INDICATOR: 10/26/17 BNP - 362 H 10/27/17 2D ECHO REFLECTS:There is diffuse global hypokinesis with distinct regional wall motion abnorm alities. The left ventricular systolic function is severely reduced with an estimated ejection fraction in the range of 25-30%. Query created by: Leny Bentley on 10/30/2017 3:19 PM RESPONSE TEXT: Acute on chronic systolic CHF Electronically signed by: Amada Fletcher MD 11/01/2017 1:40 PM
== END 2017-10-28 15:20 | disposition home or self-care (01) | DRG 286 ==
LOC: NEPC 00:55 → NEDA 03:17 → NEPFCDU 03:54 → HCIS 10-28 09:54
PROVIDERS: ADMIT Internal Medicine; ATTEND Internal Medicine
PROC: B2111ZZ Fluoroscopy of Multiple Coronary Arteries using Low Osmolar Contrast (ICD-10-PCS; 2017-10-28)
PROC: B2131ZZ Fluoroscopy of Multiple Coronary Artery Bypass Grafts using Low Osmolar Contrast (ICD-10-PCS; 2017-10-28)
PROC: B2181ZZ Fluoroscopy of Left Internal Mammary Bypass Graft using Low Osmolar Contrast (ICD-10-PCS; 2017-10-28)
PROC: B41F1ZZ Fluoroscopy of Right Lower Extremity Arteries using Low Osmolar Contrast (ICD-10-PCS; 2017-10-28)
PROC: 4A023N7 Measurement of Cardiac Sampling and Pressure, Left Heart, Percutaneous Approach (ICD-10-PCS; principal; 2017-10-28 08:45)
DX: I25.119 Atherosclerotic heart disease of native coronary artery with unspecified angina pectoris (principal); I50.23 Acute on chronic systolic (congestive) heart failure; N17.9 Acute kidney failure, unspecified; I13.0 Hypertensive heart and chronic kidney disease with heart failure and stage 1 through stage 4 chronic kidney disease, or unspecified chronic kidney disease; I70.92 Chronic total occlusion of artery of the extremities; J98.11 Atelectasis; I25.810 Atherosclerosis of coronary artery bypass graft(s) without angina pectoris; I48.91 Unspecified atrial fibrillation; R09.02 Hypoxemia; N18.9 Chronic kidney disease, unspecified; I70.201 Unspecified atherosclerosis of native arteries of extremities, right leg; E78.5 Hyperlipidemia, unspecified; Z79.82 Long term (current) use of aspirin; Z79.01 Long term (current) use of anticoagulants; Z95.1 Presence of aortocoronary bypass graft; Z95.5 Presence of coronary angioplasty implant and graft; Z95.810 Presence of automatic (implantable) cardiac defibrillator
CPT/HCPCS: 71045; 78452; 80053; 81001; 82550; 82552; 82948; 83735; 83880; 84443; 84484; 85025; 85610; 85730; 86850; 86900; 86901; 93005; 93017; 93306; 93454; 94150; 94664; 96374; 99152; 99153; A9502; C1769; C1893; J1644; J1940; J2250; J2270; J2785; J3010; Q9967

== ENCOUNTER 2017-12-01 05:05 | Inpatient (IN) | payer MEDICARE, MEDICAID ==
[2017-12-01] VITALS (9 sets, daily range): BP systolic 133–174; BP diastolic 62–85; PULSE 66–82; RESP 14–20; TEMP 97.6–98.6; O2SAT 92–96
[~2017-12-01] VITALS: Ht 170.2 cm; Wt 79.8 kg
[~2017-12-01 05:05] MED LIST: AMIO0.1T PO; ASPI1TAB57 PO; CARV12.5 PO; GABA300C5 PO; ISOS30TA3 PO; LISI-519 PO; MULTTAB67 PO; SIMV10TA PO; TAMS0.4C4 PO; TRAM50TA PO; XARE10TA PO
[2017-12-01] MEDS ORDERED: FUROSEMIDE 40 MG/4 ML VIAL IVP ONE (05:15)
[2017-12-01] MEDS ORDERED: SODIUM CHLORIDE 0.9% FLUSH 10 ML FLUSH IVF PRN (05:15)
[2017-12-01] MEDS ORDERED: RESP: ALBUTEROL 2.5 MG/IPRATROPIUM 0.5 MG NEB (SCH) INH ONE (05:15)
--- NOTE | 2017-12-01 05:36 | RADRPT ---
EXAM DATE/TIME: 12/01/2017 05:18 [place] COMPARISON: CHEST SINGLE AP, October 26, 2017, 1:43. INDICATIONS : Shortness of breath. MEDICAL HISTORY : Cardiovascular disease. SURGICAL HISTORY : Coronary artery stent. CABG. Pacemaker. ENCOUNTER: Initial ACUITY: 1 day PAIN SCORE: 0/10 LOCATION: Bilateral chest FINDINGS: Cardiomegaly, linear scarring left mid lung, and a single lead pacer/ICD device again noted. Sternoto my wires are present. There is mild interstitial prominence which is stable. No consolidation or effu duong. Osseous structures are intact. CONCLUSION: No significant change has occurred. Jefferson Reid MD on December 01, 2017 at 5:34 Board Certified Radiologist. This report was verified electronically.
[2017-12-01 05:37] LABS: AUTOMATED NEUTROPHIL # 5.6 TH/MM3 (1.8-7.7); BASOPHIL # 0.1 TH/MM3 (0-0.2); BASOPHIL % 1.1 % (0.0-2.0); EOSINOPHIL # 0.1 TH/MM3 (0-0.4); EOSINOPHIL % 1.5 % (0.0-4.0); HEMATOCRIT 39.9 % (39.0-51.0); HEMOGLOBIN 13.4 GM/DL (13.0-17.0); LYMPH % 32.3 % (9.0-44.0); LYMPHOCYTE # 3.1 TH/MM3 (1.0-4.8); MEAN CELL VOLUME 93.3 FL (80.0-100.0); MEAN CORPUSCULAR HEMOGLOBIN 31.3 PG (27.0-34.0); MEAN CORPUSCULAR HGB CONC 33.6 % (32.0-36.0); MEAN PLATELET VOLUME 7.4 FL (7.0-11.0); MONO % 8.4 % (0.0-8.0); MONOCYTE # 0.8 TH/MM3 (0-0.9); NEUT % 56.7 % (16.0-70.0); PLATELET COUNT 224 TH/MM3 (150-450); RED BLOOD COUNT 4.28 MIL/MM3 (4.50-5.90); WHITE BLOOD COUNT 9.7 TH/MM3 (4.0-11.0)
--- NOTE | 2017-12-01 05:59 | PD ---
HPI Chief Complaint: Respiratory Symptoms Time Seen by Provider: 05:13 Travel History International Travel<30 days: No Contact w/Intl Traveler<30days: No Traveled to known affect area: No History of Present Illness HPI 72-year-old male presents to the emergency department by EMS transfer from home for evaluation of sudden onset shortness of breath with orthopnea and diaphoresis. Patient denies any chest pain. Patient states he has no neck jaw back shoulder or arm or abdominal pain. Patient has not noticed any lower extremity swelling or pain. Patient was recently hospitalized October 26 for CHF and underwent cardiac catheterization at that time that showed severe wrangell coronary artery disease with patent LUI to LAD and known wrangell vessel CAD concerning for noncompliance with medical therapy was encouraged to have aggressive management of CAD with aspirin beta blockers and nitrates and to titrate medications dosing up as tolerated by blood pressure and heart rate and with plan for addition of Ranexa in the future as well as to continue aspirin and Xarelto for management of his atrial fibrillation. Patient states he has been compliant with his medications and has not missed any of his medications also he has been diet. Patient had no recent fever chills cough congestion. Per paramedics upon their arrival patient was diaphoretic and short of breath with diffuse expiratory wheezing but refused administration of albuterol nebulized treatments as he was concerned he might be allergic to albuterol. Patient to receive a one-time dose of Solu-Medrol prior to arrival to the emergency department. Patient is not on supplemental oxygen at home. Room air O2 saturation upon EMS arrival was in the low 80s and patient was placed on nasal cannula supplemental oxygen but did not improve his saturations therefore was placed on CPAP but patient remove this and would not allow additional application of CPAP and therefore was placed on 3 L/min nasal cannula with O2 saturations of 91% upon arrival to the emergency department. [facility]LY [facility] Past Medical History Narrative Medical CAD CABG cardiac cath with stent placement pacemaker defibrillator CHF dyslipidemia hypertension; nursing notes reviewed Blood Disorders: No Heart Rhythm Problems: Yes Cancer: No Cardiovascular Problems: Yes (triple bipass, stent x1, pacemaker) High Cholesterol: Yes Chemotherapy: No Chest Pain: Yes Congestive Heart Failure: Yes Endocrine: No Genitourinary: No Hypertension: Yes Immune Disorder: No Implanted Vascular Access Dvce: Yes Neurologic: No Psychiatric: No Reproductive: No Respiratory: No Radiation Therapy: No Tetanus Vaccination: Unknown Influenza Vaccination: Yes Past Surgical History Body Medical Devices: pacemaker Cardiac Surgery: Yes (stent june 05, bypass surgery ) Other Surgery: Yes Social History Alcohol Use: No Tobacco Use: No Substance Use: No Allergies-Medications (Allergen,Severity, Reaction): Coded Allergies: No Known Allergies (Verified Allergy, Unknown, 12/01/17) Reported Meds & Prescriptions Reported Meds & Active Scripts Active Lisinopril 5 Mg Tab 5 Mg PO DAILY Coreg (Carvedilol) 12.5 Mg Tab 12.5 Mg PO DAILY Isosorbide Mononitrate ER (Isosorbide Mononitrate) 30 Mg Erin 30 Mg PO DAILY@07 Reported Tamsulosin (Tamsulosin HCl) 0.4 Mg Cap 0.4 Mg PO HS Multiple Vitamin 1 Tab 1 Tab PO DAILY Amiodarone (Amiodarone HCl) 100 Mg Tab 100 Mg PO DAILY Simvastatin 10 Mg Tab 10 Mg PO DAILY Xarelto (Rivaroxaban) 10 Mg Tab 10 Mg PO DAILY Aspirin 81 (Aspirin) 81 Mg Tabdr 81 Mg PO DAILY Gabapentin 300 Mg Cap 300 Mg PO TID Tramadol (Tramadol HCl) 50 Mg Tab 50 Mg PO Q6H PRN Review of Systems Except as stated in HPI: all other systems reviewed are Neg General / Constitutional: No: Fever, Chills HENT: No: Congestion Cardiovascular: No: Chest Pain or Discomfort Respiratory: Positive: Shortness of Breath, Wheezing, Orthopnea, No: Cough Gastrointestinal: No: Nausea, Vomiting, Abdominal Pain Genitourinary: No: Dysuria Musculoskeletal: No: Myalgias, Arthralgias, Edema Skin: No Rash Neurologic: No: Weakness Psychiatric: No: Anxiety Hematologic/Lymphatic: No: Easy Bruising Physical Exam Narrative GENERAL: Well-developed elderly male with mild to moderate respiratory distress ; rO2 saturation 94% on 4 L SKIN: Cool and mildly diaphoretic. HEAD: Normocephalic. EYES: No scleral icterus. No injection or drainage. NECK: Supple, trachea midline. No JVD or lymphadenopathy. CARDIOVASCULAR: Regular rate and rhythm without murmurs, gallops, or rubs. RESPIRATORY: Breath sounds equal bilaterally with bilateral crackles. No accessory muscle use. GASTROINTESTINAL: Abdomen soft, non-tender, nondistended. MUSCULOSKELETAL: No cyanosis, or edema. BACK: Nontender without obvious deformity. No CVA tenderness. Data Data Last Documented VS Vital Signs Date Time Temp Pulse Resp B/P (MAP) Pulse Ox O2 Delivery O2 Flow Rate FiO2 12/01/17 05:47 94 Nasal Cannula 4.00 12/01/17 05:47 82 20 174/85 (114) Orders Orders Complete Blood Count With Diff (12/01/17 05:13) Basic Metabolic Panel (Bmp) (12/01/17 05:13) B-Type Natriuretic Peptide (12/01/17 05:13) Act Partial Throm Time (Ptt) (12/01/17 05:13) Prothrombin Time / Inr (Pt) (12/01/17 05:13) Magnesium (Mg) (12/01/17 05:13) Ckmb (Isoenzyme) Profile (12/01/17 05:13) Troponin I (12/01/17 05:13) Ua Includes Microscopic (12/01/17 05:13) Iv Access Insert/Monitor (12/01/17 05:13) Electrocardiogram (12/01/17 05:13) Ecg Monitoring (12/01/17 05:13) Oximetry (12/01/17 05:13) Oxygen Administration (12/01/17 05:13) Chest, Single Ap (12/01/17 05:13) Sodium Chloride 0.9% Flush (Ns Flush) (12/01/17 05:15) Furosemide Inj (Lasix Inj) (12/01/17 05:15) Albuterol-Ipratropium Neb (Duoneb Neb) (12/01/17 05:15) Nitroglycerin 2% Oint (Nitroglycerin 2% (12/01/17 06:00) Aspirin Chew (Aspirin Chew) (12/01/17 06:00) Albuterol-Ipratropium Neb (Duoneb Neb) (12/01/17 06:00) Furosemide Inj (Lasix Inj) (12/01/17 09:00) Albuterol-Ipratropium Neb (Duoneb Neb) (12/01/17 06:15) Admit To Inpatient (12/01/17 ) Vital Signs (Adult) Q4H (12/01/17 06:15) Activity Oob With Assistance (12/01/17 06:15) Rum Processing Operator / Telemetry .CONTINUOUS (12/01/17 06:15) Intake + Output EDWARD.QSHIFT (12/01/17 06:15) Diet Heart Healthy (12/01/17 Breakfast) Sodium Chloride 0.9% Flush (Ns Flush) (12/01/17 06:15) Sodium Chloride 0.9% Flush (Ns Flush) (12/01/17 09:00) Ondansetron Inj (Zofran Inj) (12/01/17 06:15) Comprehensive Metabolic Panel (12/02/17 06:00) Complete Blood Count With Diff (12/02/17 06:00) Troponin I (12/01/17 10:00) Troponin I (12/01/17 16:00) Acetaminophen (Tylenol) (12/01/17 06:15) Morphine Inj (Morphine Inj) (12/01/17 06:15) Docusate Sodium-Senna (Lillian-Colace) (12/01/17 09:00) Magnesium Hydroxide Liq (Milk Of Magnesi (12/01/17 06:15) Sennosides (Senokot) (12/01/17 06:15) Bisacodyl Supp (Dulcolax Supp) (12/01/17 06:15) Lactulose Liq (Lactulose Liq) (12/01/17 06:15) Inpatient Certification (12/01/17 ) Amiodarone (Cordarone) (12/01/17 09:00) Aspirin Ec (Ecotrin Ec) (12/01/17 09:00) Carvedilol (Coreg) (12/01/17 09:00) Gabapentin (Neurontin) (12/01/17 09:00) Isosorbide Mononitrate (Imdur) (12/01/17 07:00) Lisinopril (Prinivil) (12/01/17 09:00) Rivaroxaban (Xarelto) (12/01/17 09:00) Tamsulosin (Flomax) (12/01/17 21:00) Multivitamin (Theragran) (12/01/17 09:00) Pravastatin (Pravachol) (12/01/17 09:00) Urinary Catheter Insert/Apply (12/01/17 06:25) CKMB (12/01/17 06:00) CKMB% (12/01/17 06:00) Pill Splitter (Pill Splitter) (12/01/17 06:45) Admit Order (Ed Use Only) (12/01/17 ) Rum Processing Operator / Telemetry EDWARD.Q8H (12/01/17 06:37) Activity Oob With Assistance (12/01/17 06:37) Notify Dr: Other (12/01/17 06:37) Labs Laboratory Tests Test 12/01/17 05:30 12/01/17 06:00 White Blood Count 9.7 TH/MM3 Red Blood Count 4.28 MIL/MM3 Hemoglobin 13.4 GM/DL Hematocrit 39.9 % Mean Corpuscular Volume 93.3 FL Mean Corpuscular Hemoglobin 31.3 PG Mean Corpuscular Hemoglobin Concent 33.6 % Red Cell Distribution Width 16.0 % Platelet Count 224 TH/MM3 Mean Platelet Volume 7.4 FL Neutrophils (%) (Auto) 56.7 % Lymphocytes (%) (Auto) 32.3 % Monocytes (%) (Auto) 8.4 % Eosinophils (%) (Auto) 1.5 % Basophils (%) (Auto) 1.1 % Neutrophils # (Auto) 5.6 TH/MM3 Lymphocytes # (Auto) 3.1 TH/MM3 Monocytes # (Auto) 0.8 TH/MM3 Eosinophils # (Auto) 0.1 TH/MM3 Basophils # (Auto) 0.1 TH/MM3 CBC Comment DIFF FINAL Differential Comment Prothrombin Time 10.5 SEC Prothromb Time International Ratio 1.0 RATIO Activated Partial Thromboplast Time 21.3 SEC B-Type Natriuretic Peptide 222 PG/ML Urine Collection Type Urine Color YELLOW Urine Turbidity CLEAR Urine pH 6.5 Urine Specific [place] 1.017 Urine Protein 100 mg/dL Urine Glucose (UA) NEG mg/dL Urine Ketones TRACE mg/dL Urine Occult Blood NEG Urine Nitrite NEG Urine Bilirubin NEGATIVE Urine Leukocyte Esterase NEGATIVE Urine WBC 0-2 /hpf Urine Squamous Epithelial Cells 0-5 /hpf Urine Mucus OCC /lpf Urine Collection Time Blood Urea Nitrogen 25 MG/DL Creatinine 1.10 MG/DL Random Glucose 125 MG/DL Calcium Level 9.2 MG/DL Magnesium Level 2.2 MG/DL Sodium Level 140 MEQ/L Potassium Level 4.3 MEQ/L Chloride Level 106 MEQ/L Carbon Dioxide Level 24.1 MEQ/L Anion Gap 10 MEQ/L Estimat Glomerular Filtration Rate 66 ML/MIN Total Creatine Kinase 121 U/L Creatine Kinase MB 3.0 NG/ML Troponin I 0.02 NG/ML MDM Medical Decision Making Medical Screen Exam Complete: Yes Emergency Medical Condition: Yes Medical Record Reviewed: Yes Interpretation(s) EKG: Sinus rhythm rate 78 left bundle branch block noted on previous EKG Chest x-ray cardiomegaly with cephalization Last Impressions Chest X-Ray 12/01/17 0513 Signed Impressions: Service Date/Time: Friday, December 01, 2017 05:18 - CONCLUSION: No significant change has occurred. Jefferson Reid MD Differential Diagnosis Dyspnea, CHF, ACS, IN, PE, dissection, bronchitis/pneumonia Narrative Course 32-year-old male with known coronary vessel disease hypertension CHF pacemaker AICD presents with abrupt shortness of breath with diaphoresis and rails; patient placed on cardiac exercise physiologist with IV access and continuous pulse oximetry patient administered Lasix 40 mg IV along with DuoNeb updraft had received Solu- Medrol prior to arrival to the emergency department EKG performed shows sinus rhythm with left bundle branch block patient has pre-existing left bundle branch block Chest x-ray shows cardiomegaly with some central interstitial changes mild cephalization Patient administered Nitropaste 1/2 inch to chest wall aspirin and patient's case discussed with on-call medicine for admission CBC with automated differential grossly within normal limits chemistries grossly within normal range and troponin I is less than 0.02 Physician Communication Physician Communication admit to [facility] service discussed with Dr Martell Diagnosis Primary Impression: CHF (congestive heart failure) Additional Impression: CAD (coronary artery disease) Admitting Information Admitting Physician Requests: Admit Tracy Christensen MD Dec 01, 2017 05:59
[2017-12-01] MEDS ORDERED: ASPIRIN 81 MG CHEW TAB CHEW ONE (06:00)
[2017-12-01] MEDS ORDERED: RESP: ALBUTEROL 2.5 MG/IPRATROPIUM 0.5 MG NEB (SCH) NEB ONE (06:00)
[2017-12-01] MEDS ORDERED: NITROGLYCERIN 2% OINT 1 GM PACKET TOPICAL ONE (06:00)
[2017-12-01 06:02] LABS: PROTHROMBIN TIME - PATIENT 10.5 SEC (9.8-11.6)
[2017-12-01] MEDS ORDERED: LACTULOSE SYRUP 20 GM/30 ML CUP PO PRN (06:15)
[2017-12-01] MEDS ORDERED: MAGNESIUM HYDROXIDE SUSP 30 ML CUP PO PRN (06:15)
[2017-12-01] MEDS ORDERED: RESP: ALBUTEROL 2.5 MG/IPRATROPIUM 0.5 MG NEB (PRN) NEB (06:15)
[2017-12-01] MEDS ORDERED: ACETAMINOPHEN 325 MG TAB PO PRN (06:15)
[2017-12-01] MEDS ORDERED: SENNOSIDES 8.6 MG TAB PO PRN (06:15)
[2017-12-01] MEDS ORDERED: SODIUM CHLORIDE 0.9% FLUSH 10 ML FLUSH IV FLUSH PRN (06:15)
[2017-12-01] MEDS ORDERED: ONDANSETRON HCL 4 MG/2 ML VIAL IVP PRN (06:15)
[2017-12-01] MEDS ORDERED: BISACODYL 10 MG SUPP RECTAL PRN (06:15)
[2017-12-01 06:21] LABS: CHLORIDE 106 MEQ/L (98-107); SODIUM (NA) 140 MEQ/L (136-145)
[2017-12-01 06:24] LABS: BICARBONATE 24.1 MEQ/L (21.0-32.0); BLOOD UREA NITROGEN 25 MG/DL (7-18); CALCIUM 9.2 MG/DL (8.5-10.1); GLUCOSE,RANDOM 125 MG/DL (74-106); MAGNESIUM 2.2 MG/DL (1.5-2.5)
[2017-12-01 06:26] LABS: GLUCOSE,URINE NEG (NEG); KETONE, URINE TRACE mg/dL (NEG); PH, URINE 6.5 (5.0-8.5); URINE COLOR YELLOW (YELLW/STRAW)
[2017-12-01 06:27] LABS: BILIRUBIN, URINE NEGATIVE (NEG); BLOOD, URINE NEG (NEG); NITRITE,URINE NEG (NEG); URINE LEUKOCYTE ESTERASE NEGATIVE (NEG)
[2017-12-01 06:28] LABS: MUCUS URINE OCC /lpf (OCC); SQUAMOUS EPITHELIAL CELL URINE 0-5 /hpf (0-5)
[2017-12-01 06:30] LABS: WBC, URINE 0-2 /hpf (0-5)
[2017-12-01 06:32] LABS: GLOMERULAR FILTRATION RATE 66 ML/MIN (>89); TROPONIN I 0.02 NG/ML (0.02-0.05)
[2017-12-01] MEDS ORDERED: PILL SPLITTER OTHER PRN (06:45)
[2017-12-01] MEDS: ISOSORBIDE MONONITRATE 30 MG CR TAB (IMDUR) PO SCH (07:12)
[2017-12-01] MEDS ORDERED: KETOROLAC TROMETHAMINE 30 MG/ML (IVP) VIAL IV PUSH ONE (07:15)
[2017-12-01] MEDS ORDERED: LISINOPRIL 5 MG TAB PO SCH (09:00)
[2017-12-01] MEDS: MULTIVITAMIN TAB PO SCH (09:00)
[2017-12-01] MEDS: RIVAROXABAN 10 MG TAB PO SCH (09:00)
[2017-12-01] MEDS: PRAVASTATIN SOD 20 MG TAB PO SCH (09:00)
[2017-12-01] MEDS: DOCUSATE SODIUM 50 MG/SENNA 8.6 MG TAB PO SCH ×2 (09:00→20:23)
[2017-12-01] MEDS: AMIODARONE 200 MG TAB PO SCH (09:00)
[2017-12-01] MEDS: ASPIRIN EC 81 MG TABEC PO SCH (09:00)
[2017-12-01] MEDS: SODIUM CHLORIDE 0.9% FLUSH 10 ML FLUSH IV FLUSH SCH ×2 (09:32→20:24)
[2017-12-01] MEDS: FUROSEMIDE 40 MG/4 ML VIAL IV PUSH SCH ×2 (09:32→17:13)
--- NOTE | 2017-12-01 09:37 | HHI.HP ---
[facility] [place] [facility] Non-Staff Admission Diagnosis chf Diagnoses: Chief Complaint: shortness of breath Travel History International Travel<30 Days: No Contact w/Intl Traveler <30 Da: No Traveled to Known Affected Are: No History of Present Illness 72-year-old white male being admitted for acute hypoxic respiratory failure. Patient was in his usual state of health until sometime earlier this morning he says all he remembers (whether he was sleeping and not) he was sitting up at the side of the bed breathing very fast, could not catch his breath. Denies having any chest pain. Denies any orthopnea or any exertional or alleviating factors. That's when he decided come to emergency department. He was noted to be hypoxic in the 80s. Has been given Lasix. The patient claims that he is compliant with his medications for the most part including his "blood thinners" and some cholesterol medication which he cannot specify. He says that he has been out of his lisinopril for a couple of months now and claims that "they did not refill it." This past medical history includes a cardiac catheterization with angioplasty, I do not see actual stenting noted his most recent cardiac report. He does have pretty severe disease as well as afib. Patient does report a smoking history. He denies any significant family history. Review of Systems Except as stated in HPI: all other systems reviewed are Neg Past Family Social History Allergies: Coded Allergies: No Known Allergies (Verified Allergy, Unknown, 12/01/17) Physical Exam Vital Signs Vital Signs Date Time Temp Pulse Resp B/P (MAP) Pulse Ox O2 Delivery O2 Flow Rate FiO2 12/01/17 08:48 12/01/17 07:00 97.7 81 16 159/80 (106) 95 Nasal Cannula 4.00 12/01/17 06:58 16 95 Nasal Cannula 4.00 12/01/17 05:47 94 Nasal Cannula 4.00 12/01/17 05:47 82 20 174/85 (114) 94 Nasal Cannula 4.00 12/01/17 05:22 93 Nasal Cannula 4.00 12/01/17 05:20 90 22 93 Nasal Cannula 4.00 Physical Exam VS: afebrile GENERAL: Elderly white male, well-nourished, lying in bed, in no acute distress , has a nasal cannula placed on his forehead SKIN: Warm and dry. EYES: No scleral icterus. No injection or drainage. ENT: No nasal bleeding or discharge. CARDIOVASCULAR: Regular rate and rhythm. no murmurs. Negative hepatojugular reflex, no obvious JVD RESPIRATORY: No accessory muscle use. Diminished breath sounds in the bases GASTROINTESTINAL: Abdomen soft, non-tender, nondistended. Extremities: No clubbing, cyanosis, or edema. No obvious deformities. MUSCULOSKELETAL: adequate muscle bulk and tone for age and habitus NEUROLOGICAL: Awake and alert. No obvious cranial nerve deficits. No facial droop nor slurred speech noted. PSYCHIATRIC: Appropriate mood and affect; insight and judgment normal. Laboratory Laboratory Tests Test 12/01/17 05:30 12/01/17 06:00 White Blood Count 9.7 Red Blood Count 4.28 Hemoglobin 13.4 Hematocrit 39.9 Mean Corpuscular Volume 93.3 Mean Corpuscular Hemoglobin 31.3 Mean Corpuscular Hemoglobin Concent 33.6 Red Cell Distribution Width 16.0 Platelet Count 224 Mean Platelet Volume 7.4 Neutrophils (%) (Auto) 56.7 Lymphocytes (%) (Auto) 32.3 Monocytes (%) (Auto) 8.4 Eosinophils (%) (Auto) 1.5 Basophils (%) (Auto) 1.1 Neutrophils # (Auto) 5.6 Lymphocytes # (Auto) 3.1 Monocytes # (Auto) 0.8 Eosinophils # (Auto) 0.1 Basophils # (Auto) 0.1 CBC Comment DIFF FINAL Differential Comment Prothrombin Time 10.5 Prothromb Time International Ratio 1.0 Activated Partial Thromboplast Time 21.3 B-Type Natriuretic Peptide 222 Urine Collection Type Urine Color YELLOW Urine Turbidity CLEAR Urine pH 6.5 Urine Specific [place] 1.017 Urine Protein 100 Urine Glucose (UA) NEG Urine Ketones TRACE Urine Occult Blood NEG Urine Nitrite NEG Urine Bilirubin NEGATIVE Urine Leukocyte Esterase NEGATIVE Urine WBC 0-2 Urine Squamous Epithelial Cells 0-5 Urine Mucus OCC Urine Collection Time Blood Urea Nitrogen 25 Creatinine 1.10 Random Glucose 125 Calcium Level 9.2 Magnesium Level 2.2 Sodium Level 140 Potassium Level 4.3 Chloride Level 106 Carbon Dioxide Level 24.1 Anion Gap 10 Estimat Glomerular Filtration Rate 66 Total Creatine Kinase 121 Creatine Kinase MB 3.0 Troponin I 0.02 Result Diagram: 12/01/1752912/01/17 0600 Imaging Last Impressions Chest X-Ray 12/01/17 05 Signed Impressions: Service Date/Time: Friday, December 01, 2017 05:18 - CONCLUSION: No significant change has occurred. MD Missy Oliveira VTE Risk Assessment Missy VTE Risk Assessment: Mod/High Risk (score >= 2) Caprini Risk Assessment Model Point Value = 1 Point Value = 2 Point Value = 3 Point Value = 5 Age 41-60 Minor surgery BMI > 25 kg/m2 Swollen legs Varicose veins or History of unexplained or recurrent spontaneous Oral contraceptives or hormone replacement Sepsis (< 1 month) Serious lung disease, including pneumonia (< 1 month) Abnormal pulmonary function Acute myocardial infarction Congestive heart failure (< 1 month) History of inflammatory bowel disease Medical patient at bed rest Age 61-74 Arthroscopic surgery Major open surgery (> 45 min) Laparoscopic surgery (> 45 min) Malignancy Confined to bed (> 72 hours) Immobilizing plaster cast Central venous access Age >= 75 History of VTE Family history of VTE Factor V Leiden Prothrombin [id number] Lupus anticoagulant Anticardiolipin antibodies Elevated serum homocysteine Heparin-induced thrombocytopenia Other congenital or acquired thrombophilia Stroke (< 1 month) Elective arthroplasty Hip, pelvis, or leg fracture Acute spinal cord injury (< 1 month) Prophylaxis Regimen Total Risk Factor Score Risk Level Prophylaxis Regimen 0-1 Low Early ambulation 2 Moderate Order ONE of the following: *Sequential Compression Device (SCD) *Heparin 5000 units SQ BID 3-4 Higher Order ONE of the following medications: *Heparin 5000 units SQ TID *Enoxaparin/Lovenox 40 mg SQ daily (WT < 150 kg, CrCl > 30 mL/min) *Enoxaparin/Lovenox 30 mg SQ daily (WT < 150 kg, CrCl > 10-29 mL/min) *Enoxaparin/Lovenox 30 mg SQ BID (WT < 150 kg, CrCl > 30 mL/min) AND/OR *Sequential Compression Device (SCD) 5 or more Highest Order ONE of the following medications: *Heparin 5000 units SQ TID (Preferred with Epidurals) *Enoxaparin/Lovenox 40 mg SQ daily (WT < 150 kg, CrCl > 30 mL/min) *Enoxaparin/Lovenox 30 mg SQ daily (WT < 150 kg, CrCl > 10-29 mL/min) *Enoxaparin/Lovenox 30 mg SQ BID (WT < 150 kg, CrCl > 30 mL/min) AND *Sequential Compression Device (SCD) Assessment and Plan Assessment and Plan 72-year-old white male admitted for acute hypoxic respiratory failure Shortness of breath - I suspect multifactorial picture with acute on chronic systolic heart failure as well as possible COPD from smoking history - Continue duo nebs, see tx below for CHF and hypoxia - Will trend troponins and given sudden onset we will consider cardiology consult since flash pulmonary edema can't be ruled out Acute hypoxic respiratory failure - I independently reviewed the chest x-ray and see what appears to be diffuse pulmonary edema even of the BNP is only in the 200s - he has a hx of afib and w/ xarelto in his system he should not have a PE so we will not pursue w/ such workup Possible acute on chronic systolic heart failure - continue with BID lasix, intake and output - Depressed EF on most recent echocardiogram - We'll transition the patient from lisinopril to entresto - continue bblocker CAD - continue aspirin and xarelto SCDs Physician Certification 2 Midnight Certification Type: Admission for Inpatient Services Order for Inpatient Services The services are ordered in accordance with Medicare regulations or non- Medicare payer requirements, as applicable. In the case of services not specified as inpatient-only, they are appropriately provided as inpatient services in accordance with the 2-midnight benchmark. Estimated LOS (days): 2 2 days is the estimated time the patient will need to remain in the hospital, assuming treatment plan goals are met and no additional complications. Post-Hospital Plan: Not yet determined Cecil Monaco MD Dec 01, 2017 09:36
[2017-12-01] MEDS: GABAPENTIN 300 MG CAP PO SCH ×3 (09:38→17:10)
[2017-12-01] MEDS: CARVEDILOL 12.5 MG TAB PO SCH (09:38)
[2017-12-01] MEDS ORDERED: AMIO200T PO (09:43)
[2017-12-01] MEDS ORDERED: LEVO50TA4 PO (09:44)
[2017-12-01] MEDS ORDERED: APIX5TAB PO (09:45)
[2017-12-01] MEDS ORDERED: PLAV75TA29 PO (09:45)
[2017-12-01] MEDS ORDERED: LISI10TA3 PO (09:46)
[2017-12-01] MEDS ORDERED: TAMS0.4C4 PO (09:46)
[2017-12-01] MEDS ORDERED: DULO1CAP3 PO (09:46)
[2017-12-01] MEDS ORDERED: SIMV20TA PO (09:47)
[2017-12-01] MEDS ORDERED: DIVA500T PO (09:47)
[2017-12-01] MEDS ORDERED: AMIODARONE 200 MG TAB PO SCH (11:00)
--- NOTE | 2017-12-01 11:02 | EKG ---
Date Performed: 12/01/2017 Time Performed: 05:41:43 PTAGE: 72 years EKG: Sinus rhythm MARKED LEFT AXIS DEVIATION LEFT BUNDLE BRANCH BLOCK ABNORMAL ECG Since the prior tracing, there has been no significant change PREVIOUS TRACING : 10/26/2017 01.00 DOCTOR: Aneudy Walker Interpretating Date/Time 12/01/2017 10:59:39
[2017-12-01] MEDS: LEVOTHYROXINE SODIUM 50 MCG TAB PO SCH (12:18)
[2017-12-01] MEDS: DULoxetine HCl DR 60 MG CAP PO SCH (12:19)
[2017-12-01] MEDS: DIVALPROEX DR 500 MG TABEC PO SCH ×2 (12:20→17:10)
[2017-12-01] MEDS ORDERED: TAMSULOSIN HCL 0.4 MG CAP PO ONE (17:00)
[2017-12-01] MEDS ORDERED: RIVAROXABAN 10 MG TAB PO ONE (20:00)
[2017-12-01] MEDS ORDERED: LISINOPRIL 10 MG TAB PO ONE (20:00)
[2017-12-01] MEDS: TAMSULOSIN HCL 0.4 MG CAP PO SCH (20:24)
[2017-12-01] MEDS: MORPHINE SULFATE 2 MG/ML INJ IV PUSH PRN (20:29)
[2017-12-02] VITALS (10 sets, daily range): BP systolic 102–144; BP diastolic 49–67; PULSE 56–75; RESP 15–20; TEMP 96.5–98; O2SAT 93–98
[2017-12-02] MEDS: LEVOTHYROXINE SODIUM 50 MCG TAB PO SCH (06:10)
[2017-12-02] MEDS: ISOSORBIDE MONONITRATE 30 MG CR TAB (IMDUR) PO SCH (06:11)
[2017-12-02 06:43] LABS: AUTOMATED NEUTROPHIL # 15.5 TH/MM3 (1.8-7.7); HEMATOCRIT 35.8 % (39.0-51.0); HEMOGLOBIN 11.7 GM/DL (13.0-17.0); LYMPH % 10.2 % (9.0-44.0); LYMPHOCYTE # 1.9 TH/MM3 (1.0-4.8); MEAN CELL VOLUME 93.8 FL (80.0-100.0); MEAN CORPUSCULAR HEMOGLOBIN 30.6 PG (27.0-34.0); MEAN CORPUSCULAR HGB CONC 32.7 % (32.0-36.0); MEAN PLATELET VOLUME 7.7 FL (7.0-11.0); MONO % 6.4 % (0.0-8.0); MONOCYTE # 1.2 TH/MM3 (0-0.9); NEUT % 83.4 % (16.0-70.0); PLATELET COUNT 232 TH/MM3 (150-450); RED BLOOD COUNT 3.81 MIL/MM3 (4.50-5.90); RED CELL DISTRIBUTION WIDTH 15.7 % (11.6-17.2); WHITE BLOOD COUNT 18.6 TH/MM3 (4.0-11.0)
[2017-12-02 06:56] LABS: CHLORIDE 105 MEQ/L (98-107); SODIUM (NA) 141 MEQ/L (136-145)
[2017-12-02 07:04] LABS: ALT (GPT) 17 U/L (12-78); BICARBONATE 27.6 MEQ/L (21.0-32.0); CALCIUM 8.9 MG/DL (8.5-10.1); GLUCOSE,RANDOM 119 MG/DL (74-106)
[2017-12-02 07:21] LABS: ALKALINE PHOSPHATASE 41 U/L (45-117); AST (GOT) 13 U/L (15-37); BLOOD UREA NITROGEN 48 MG/DL (7-18); GLOMERULAR FILTRATION RATE 50 ML/MIN (>89); TOTAL BILIRUBIN ADULT 0.3 MG/DL (0.2-1.0); TOTAL PROTEIN 6.8 GM/DL (6.4-8.2)
--- NOTE | 2017-12-02 07:49 | MB ---
cc: NATALIA LO DATE OF CONSULTATION 12/01/2017 REASON FOR CONSULTATION Mr. Goff is a 72-year-old white male with a history of coronary artery disease, coronary stenting, defibrillator placement, coronary bypass, congestive heart failure, dyslipidemia, hypertension. His cardiac catheterization in October showed patent LUI and LAD and no nez perce vessel coronary disease. Medical therapy was recommended. The patient presented with shortness of breath, PND, orthopnea, diaphoresis. He has not had any chest pain. He was hypoxemic and was placed on oxygen. He still complains of dyspnea with minimal exertion. He has not had any pain or any angina. PAST MEDICAL HISTORY Positive for: 1. Coronary artery disease 2. Coronary bypass 3. Coronary stenting 4. Defibrillator placement 5. Heart failure 6. Hypertension 7. Dyslipidemia 8. Congestive heart failure MEDICATIONS Medications include: 1. Tramadol 2. Gabapentin 3. Aspirin 4. Xarelto 20 mg a day 5. Simvastatin 10 mg a day 6. Amiodarone 100 mg a day 7. Multivitamin 8. Tamsulosin 9. Lisinopril 10. Coreg 11. Isosorbide ALLERGIES None SOCIAL HISTORY The patient does not smoke. He does not drink alcohol. FAMILY HISTORY Negative for heart disease. REVIEW OF SYSTEMS Otherwise negative. PHYSICAL EXAMINATION Blood pressure 133/69, pulse 74 and regular. HEENT: Negative. 2+ carotid upstrokes. No bruits. LUNGS: Clear. HEART: Regular with no murmur with no gallop. There is a split S2. ABDOMEN: Soft. No bruits. EXTREMITIES: With trace edema, 2+ distal pulses. NEUROLOGIC: Exam is grossly nonfocal. EKG was reviewed and showed a normal sinus rhythm, left axis and left bundle-branch block. LABORATORY DATA Hemoglobin 13.4, potassium 4.3, creatinine 1.1, troponin negative times three. BNP 222. DIAGNOSIS 1. Dyspnea 2. Acute hypoxic respiratory failure 3. Congestive heart failure, chronic systolic 4. Ischemic cardiomyopathy 5. Coronary artery disease with a history of three-vessel coronary artery bypass. 6. Left bundle branch block 7. Status post ICD placement 8. Chronic kidney disease DISPOSITION Mr. Goff will be monitored on telemetry. Recommend to continue and titrate therapy for congestive heart failure. His BNP is relatively low to be consistent with acute heart failure exacerbation. I agreed to continue therapy for congestive heart including diuresis with Lasix. I also agree with transition to Entresto. I also recommend to continue carvedilol. Recommend to continue aggressive modification of his cardiac risk factors. May benefit from a higher dose of statin different than Sandostatin (atorvastatin or rosuvastatin). I will see him back for followup in our office after discharge. MD MARTHA Billingsley/CHITRA /8:31 PM /7:32 AM
[2017-12-02] MEDS: DIVALPROEX DR 500 MG TABEC PO SCH ×3 (09:00→18:00)
[2017-12-02] MEDS: ASPIRIN EC 81 MG TABEC PO SCH (09:00)
[2017-12-02] MEDS: DOCUSATE SODIUM 50 MG/SENNA 8.6 MG TAB PO SCH ×2 (09:55→22:03)
[2017-12-02] MEDS: DULoxetine HCl DR 60 MG CAP PO SCH (09:56)
[2017-12-02] MEDS: GABAPENTIN 300 MG CAP PO SCH ×3 (09:56→18:08)
[2017-12-02] MEDS: MULTIVITAMIN TAB PO SCH (09:56)
[2017-12-02] MEDS: LISINOPRIL 10 MG TAB PO SCH (09:56)
[2017-12-02] MEDS: CARVEDILOL 12.5 MG TAB PO SCH (09:56)
[2017-12-02] MEDS: PRAVASTATIN SOD 20 MG TAB PO SCH (09:57)
[2017-12-02] MEDS: RIVAROXABAN 10 MG TAB PO SCH (09:57)
[2017-12-02] MEDS: FUROSEMIDE 40 MG/4 ML VIAL IV PUSH SCH (09:58)
[2017-12-02] MEDS: SODIUM CHLORIDE 0.9% FLUSH 10 ML FLUSH IV FLUSH SCH ×2 (09:58→22:04)
[2017-12-02] MEDS: AMIODARONE 200 MG TAB PO SCH (09:59)
--- NOTE | 2017-12-02 10:58 | HHI.PR ---
Subjective Remarks Nursing denies any deterioration since last night. Patient himself says he feels much better than yesterday but feels like he needs another night. He brings up a story of having acute self-resolved bruising during his previous hospitalization and is asking if I can figure out what happened then. He does have new onset drastic leukocytosis Objective Vital Signs Date Time Temp Pulse Resp B/P (MAP) Pulse Ox O2 Delivery O2 Flow Rate FiO2 12/02/17 09:48 62 12/02/17 08:48 96.5 58 16 108/62 (77) 95 12/02/17 08:02 98 Nasal Cannula 2.00 12/02/17 04:00 98.0 62 20 121/58 (79) 98 12/02/17 00:00 97.9 75 20 115/56 (75) 93 12/01/17 21:55 96 Nasal Cannula 2.00 12/01/17 21:15 76 12/01/17 20:00 98.6 79 20 135/62 (86) 93 12/01/17 18:00 97.6 74 14 133/69 (90) 92 12/01/17 15:00 97.8 81 14 141/82 (101) 94 I/O 12/01/17 12/01/17 12/01/17 12/02/17 12/02/17 12/02/17 07:00 15:00 23:00 07:00 15:00 23:00 Intake Total 222 ml 462 ml 480 ml Output Total 475 ml 1050 ml 400 ml 75 ml Balance -475 ml -828 ml 62 ml 405 ml Intake Oral 222 ml 462 ml 480 ml Output Urine Total 475 ml 1050 ml 400 ml 75 ml # Voids 1 1 # Bowel Movements 0 0 Result Diagram: 12/02/17 0625 12/02/17 0625 Objective Remarks Diminished breath sounds in the bases, minimally labored breathing, no cyanosis on room air No lower extremity edema noted; I see very old faint bruises of the patient's left-sided abdomen, but nothing on his back or buttocks A/P Assessment and Plan Shortness of breath -Now suspect more acute systolic heart failure as opposed to COPD given he has no wheezing - Continue duo nebs, see tx below for CHF and hypoxia - Troponins unremarkable, appreciate cardiology consult Acute hypoxic respiratory failure - I independently reviewed the chest x-ray and see what appears to be diffuse pulmonary edema even of the BNP is only in the 200s - he has a hx of afib and w/ xarelto in his system he should not have a PE so we will not pursue w/ such workup Possible acute on chronic systolic heart failure - continue with BID lasix, intake and output - Depressed EF on most recent echocardiogram - entresto - continue bblocker - continue home amiodarone DELFINO - possibly from contrast and diuresis, monitor in AM, unfortunately we still have to give further diuresis due to his respiratory status not being optimal CAD - continue aspirin and xarelto Leukocytosis -May be all stress induced, monitor, no fever or any clinical signs or symptoms of infection, will hold off on drawing blood cultures. on Cecil Alves MD Dec 02, 2017 10:58
[2017-12-02] MEDS: METOLAZONE 5 MG TAB PO SCH (13:26)
[2017-12-02] MEDS: TAMSULOSIN HCL 0.4 MG CAP PO SCH (22:04)
[2017-12-03] VITALS: BP 157/67; PULSE 61; RESP 20; TEMP 97.3; O2SAT 95
[2017-12-03] MEDS: MORPHINE SULFATE 2 MG/ML INJ IV PUSH PRN (02:28)
[2017-12-03 04:00] VITALS: BP 150/68; PULSE 58; RESP 20; TEMP 97; O2SAT 95
[2017-12-03] MEDS: LEVOTHYROXINE SODIUM 50 MCG TAB PO SCH (04:17)
[2017-12-03] MEDS: ISOSORBIDE MONONITRATE 30 MG CR TAB (IMDUR) PO SCH (06:16)
[2017-12-03 07:03] LABS: AUTOMATED NEUTROPHIL # 8.4 TH/MM3 (1.8-7.7); BASOPHIL # 0.1 TH/MM3 (0-0.2); BASOPHIL % 0.6 % (0.0-2.0); EOSINOPHIL # 0.1 TH/MM3 (0-0.4); EOSINOPHIL % 0.4 % (0.0-4.0); HEMATOCRIT 36.2 % (39.0-51.0); HEMOGLOBIN 11.4 GM/DL (13.0-17.0); LYMPH % 29.6 % (9.0-44.0); MEAN CELL VOLUME 94.7 FL (80.0-100.0); MEAN CORPUSCULAR HEMOGLOBIN 29.7 PG (27.0-34.0); MEAN CORPUSCULAR HGB CONC 31.4 % (32.0-36.0); MEAN PLATELET VOLUME 7.5 FL (7.0-11.0); MONO % 7.4 % (0.0-8.0); PLATELET COUNT 221 TH/MM3 (150-450); RED BLOOD COUNT 3.82 MIL/MM3 (4.50-5.90); RED CELL DISTRIBUTION WIDTH 15.3 % (11.6-17.2); WHITE BLOOD COUNT 13.6 TH/MM3 (4.0-11.0)
[2017-12-03 07:50] VITALS: BP 155/70; PULSE 58; RESP 20; TEMP 96.4; O2SAT 95
[2017-12-03 08:02] VITALS: PULSE 54
[2017-12-03] MEDS: DIVALPROEX DR 500 MG TABEC PO SCH ×2 (09:31→14:15)
[2017-12-03] MEDS: AMIODARONE 200 MG TAB PO SCH (09:32)
[2017-12-03] MEDS: DOCUSATE SODIUM 50 MG/SENNA 8.6 MG TAB PO SCH (09:32)
[2017-12-03] MEDS: CARVEDILOL 12.5 MG TAB PO SCH (09:32)
[2017-12-03] MEDS: RIVAROXABAN 10 MG TAB PO SCH (09:32)
[2017-12-03] MEDS: ASPIRIN EC 81 MG TABEC PO SCH (09:32)
[2017-12-03] MEDS: MULTIVITAMIN TAB PO SCH (09:32)
[2017-12-03] MEDS: GABAPENTIN 300 MG CAP PO SCH ×2 (09:33→14:15)
[2017-12-03] MEDS: DULoxetine HCl DR 60 MG CAP PO SCH (09:33)
[2017-12-03] MEDS: METOLAZONE 5 MG TAB PO SCH (09:33)
[2017-12-03] MEDS: LISINOPRIL 10 MG TAB PO SCH (09:35)
[2017-12-03] MEDS: SODIUM CHLORIDE 0.9% FLUSH 10 ML FLUSH IV FLUSH SCH (09:36)
[2017-12-03 10:02] LABS: BICARBONATE 30.3 MEQ/L (21.0-32.0); CALCIUM 8.1 MG/DL (8.5-10.1)
[2017-12-03] MEDS ORDERED: ATOR40TA16 PO (10:34)
--- NOTE | 2017-12-03 10:36 | HHI.DCPOC ---
Discharge Care Plan Diagnosis: (1) CAD (coronary artery disease) (2) CHF (congestive heart failure) (3) Acute on chronic systolic (congestive) heart failure Goals to Promote Your Health * To prevent worsening of your condition and complications * To maintain your health at the optimal level Directions to Meet Your Goals Take your medications as prescribed Follow your dietary instruction Follow activity as directed Keep your appointments as scheduled Take your immunizations and boosters as scheduled If your symptoms worsen call your PCP, if no PCP go to Urgent Care Center or Emergency Room Smoking is Dangerous to Your Health. Avoid second hand smoke Call the 24-hour hour crisis hotline for domestic abuse at Cecil Monaco MD Dec 03, 2017 10:36
[2017-12-03] MEDS ORDERED: CARV12.5 PO (10:38)
[2017-12-03 11:50] VITALS: BP 128/60; PULSE 52; RESP 20; TEMP 98.6; O2SAT 90
[2017-12-03] MEDS ORDERED: LISI10TA3 PO (12:00)
[2017-12-03] MEDS ORDERED: FURO20TA PO (12:02)
[2017-12-03] MEDS ORDERED: APIX5TAB PO (12:02)
--- NOTE | 2017-12-03 12:03 | HHI.FF ---
Face to Face Verification Diagnosis: (1) Acute on chronic systolic (congestive) heart failure (2) CAD (coronary artery disease) Physical Therapy Order: Evaluate and Treat Home Health Nursing Order: Medical education Signs/symptoms of disease process CHF education Nursing assessment with vital signs I have seen patient Eliseo Goff on 12/03/17. My clinical findings support the need for the requested home health care services because: Med compliance is questionable I certify that my clinical findings support that this patient is homebound because: Poor cardiac reserve Cecil Monaco MD Dec 03, 2017 12:03
[2017-12-03] MEDS ORDERED: POTA-163 PO (12:04)
--- NOTE | 2017-12-03 12:06 | HHI.DS ---
Discharge Summary Admission Date Dec 01, 2017 at 06:38 Discharge Date: Dec 03, 2017 Admitting Diagnosis chf (1) Acute on chronic systolic (congestive) heart failure ICD Code: I50.23 - Acute on chronic systolic (congestive) heart failure (2) Renal insufficiency ICD Code: N28.9 - Disorder of kidney and ureter, unspecified Procedures none Brief History - From Admission 72-year-old white male being admitted for acute hypoxic respiratory failure. Patient was in his usual state of health until sometime earlier this morning he says all he remembers (whether he was sleeping and not) he was sitting up at the side of the bed breathing very fast, could not catch his breath. Denies having any chest pain. Denies any orthopnea or any exertional or alleviating factors. That's when he decided come to emergency department. He was noted to be hypoxic in the 80s. Has been given Lasix. The patient claims that he is compliant with his medications for the most part including his "blood thinners" and some cholesterol medication which he cannot specify. He says that he has been out of his lisinopril for a couple of months now and claims that "they did not refill it." This past medical history includes a cardiac catheterization with angioplasty, I do not see actual stenting noted his most recent cardiac report. He does have pretty severe disease as well as afib. Patient does report a smoking history. He denies any significant family history. CBC/BMP: 12/03/17 0640 12/03/17 0945 Significant Findings Laboratory Tests Test 12/01/17 05:30 12/01/17 06:00 12/01/17 11:00 12/01/17 16:20 Red Blood Count 4.28 MIL/MM3 (4.50-5.90) Monocytes (%) (Auto) 8.4 % (0.0-8.0) Activated Partial Thromboplast Time 21.3 SEC (24.3-30.1) B-Type Natriuretic Peptide 222 PG/ML (0-100) Urine Protein 100 mg/dL (NEG-TRACE) Urine Ketones TRACE mg/dL (NEG) Blood Urea Nitrogen 25 MG/DL (7-18) Random Glucose 125 MG/DL (74-106) Estimat Glomerular Filtration Rate 66 ML/MIN (>89) Test 12/02/17 06:25 12/03/17 06:40 12/03/17 09:45 White Blood Count 18.6 TH/MM3 (4.0-11.0) 13.6 TH/MM3 (4.0-11.0) Red Blood Count 3.81 MIL/MM3 (4.50-5.90) 3.82 MIL/MM3 (4.50-5.90) Hemoglobin 11.7 GM/DL (13.0-17.0) 11.4 GM/DL (13.0-17.0) Hematocrit 35.8 % (39.0-51.0) 36.2 % (39.0-51.0) Neutrophils (%) (Auto) 83.4 % (16.0-70.0) Neutrophils # (Auto) 15.5 TH/MM3 (1.8-7.7) 8.4 TH/MM3 (1.8-7.7) Monocytes # (Auto) 1.2 TH/MM3 (0-0.9) 1.0 TH/MM3 (0-0.9) Blood Urea Nitrogen 48 MG/DL (7-18) 46 MG/DL (7-18) Creatinine 1.40 MG/DL (0.60-1.30) Random Glucose 119 MG/DL (74-106) Albumin 3.0 GM/DL (3.4-5.0) Alkaline Phosphatase 41 U/L (45-117) Aspartate Amino Transf (AST/SGOT) 13 U/L (15-37) Estimat Glomerular Filtration Rate 50 ML/MIN (>89) 73 ML/MIN (>89) Mean Corpuscular Hemoglobin Concent 31.4 % (32.0-36.0) Calcium Level 8.1 MG/DL (8.5-10.1) PE at Discharge Clear lungs bilaterally, unlabored breathing Heart sounds regular rate and rhythm Hospital Course Patient was admitted, started on IV diuresis. Cardiology was consulted suspicion for possible flash pulmonary edema. They recommended further medical management for acute systolic heart failure. Patient's respiratory status stabilized over the next 2 days. He was doing well on room air in return to unlabored respiratory efforts upon exertion. Patient has met maximum benefit from hospitalization and is clinically stable for discharge with home health. Patient has a lot of medications that are crucial and he would benefit from home health for improved compliance. Pt Condition on Discharge: Stable Discharge Disposition: Disch w/ Home Health Serv Discharge Time: <= 30 minutes Discharge Instructions DIET: Follow Instructions for: Heart Healthy Diet Fluid Restrictions: 1500 Activities you can perform: Weight Bearing as Lupis Follow up Referrals: Cardiology - 2 Weeks PCP Follow-up - 1 Week New Medications: Furosemide (Furosemide) 20 Mg Tab 20 MG PO BID for heart failure, #60 TAB 0 Refills Potassium Chloride ER (Potassium Chloride ER) 20 Meq Tab 20 MEQ PO DAILY for Electrolyte Replacement, #30 TAB 0 Refills Atorvastatin (Atorvastatin) 40 Mg Tab 40 MG PO HS for heart disease, #30 TAB Continued Medications: Amiodarone (Amiodarone) 200 Mg Tab 200 MG PO DAILY for Regulate Heart Beat, #30 TAB 0 Refills Apixaban (Eliquis) 5 Mg Tab 5 MG PO BID for Blood Clot Prevention, #60 TAB 0 Refills (This prescription has been renewed) Carvedilol (Coreg) 12.5 Mg Tab 12.5 MG PO DAILY for Regulate Heart Beat, #60 TAB (This prescription has been renewed) Clopidogrel (Plavix) 75 Mg Tab 75 MG PO DAILY for Blood Clot Prevention, #30 TAB [address] (Divalproex DR) 500 Mg Tabdr 500 MG PO TID for Control Seizures, #60 TAB [address] (Duloxetine DR) 60 Mg Capdr 60 MG PO DAILY, #30 CAP 0 Refills Gabapentin (Gabapentin) 300 Mg Cap 300 MG PO TID, #90 CAP 0 Refills Levothyroxine (Levothyroxine) 50 Mcg Tab 50 MCG PO DAILY@0600 for Thyroid, #30 TAB 0 Refills Lisinopril (Lisinopril) 10 Mg Tab 10 MG PO DAILY for heart failure, #30 TAB 0 Refills (This prescription has been renewed) Tamsulosin (Tamsulosin) 0.4 Mg Cap 0.8 MG PO HS for Manage Prostate Problems, #60 CAP 0 Refills Tramadol (Tramadol) 50 Mg Tab 50 MG PO Q6H PRN for PAIN, TAB 0 Refills Discontinued Medications: Simvastatin (Simvastatin) 20 Mg Tab 20 MG PO HS for Cholesterol Management, #30 TAB 0 Refills Cecil Monaco MD Dec 03, 2017 12:06
[2017-12-03] MEDS ORDERED: FUROSEMIDE 20 MG/2 ML VIAL IV PUSH ONE (12:50)
[2017-12-03] MEDS ORDERED: POTASSIUM CHLORIDE 25 MEQ EFFERVESCENT TAB PO ONE (12:50)
[2017-12-03] MEDS ORDERED: ATORVASTATIN 40 MG TAB PO SCH (21:00)
== END 2017-12-03 15:07 | disposition home health service (06) | DRG 291 ==
LOC: PHED 05:05 → PHEDA 06:38 → PH3A 08:57
PROVIDERS: ADMIT Hospitalist; ATTEND Hospitalist
DX: I13.0 Hypertensive heart and chronic kidney disease with heart failure and stage 1 through stage 4 chronic kidney disease, or unspecified chronic kidney disease (principal); I50.23 Acute on chronic systolic (congestive) heart failure; J96.01 Acute respiratory failure with hypoxia; N17.9 Acute kidney failure, unspecified; I44.7 Left bundle-branch block, unspecified; I25.10 Atherosclerotic heart disease of native coronary artery without angina pectoris; Z95.810 Presence of automatic (implantable) cardiac defibrillator; N18.9 Chronic kidney disease, unspecified; I48.91 Unspecified atrial fibrillation; Z87.891 Personal history of nicotine dependence; Z95.5 Presence of coronary angioplasty implant and graft; Z95.1 Presence of aortocoronary bypass graft; E78.5 Hyperlipidemia, unspecified; I25.5 Ischemic cardiomyopathy; D72.829 Elevated white blood cell count, unspecified
CPT/HCPCS: 71045; 80048; 80053; 81001; 82550; 82552; 83735; 83880; 84484; 85025; 85610; 85730; 93005; 94640; 94664; 96374; J1885; J1940; J2270

== ENCOUNTER 2017-12-12 01:25 | Inpatient (IN) | payer MEDICARE, MEDICAID ==
[~2017-12-12] VITALS: Ht 170.2 cm; Wt 78.6 kg
[2017-12-12] VITALS (10 sets, daily range): BP systolic 119–150; BP diastolic 60–78; PULSE 73–108; RESP 18–22; TEMP 97.8–101.3; O2SAT 93–95
[~2017-12-12 01:25] MED LIST changes: -AMIO0.1T PO; +AMIO200T PO; +APIX5TAB PO; -ASPI1TAB57 PO; +ATOR40TA16 PO; +DIVA500T PO; +DULO1CAP3 PO; +FURO20TA PO; -ISOS30TA3 PO; +LEVO50TA4 PO; -LISI-519 PO; +LISI10TA3 PO; -MULTTAB67 PO; +PLAV75TA29 PO; +POTA-163 PO; -SIMV10TA PO; -XARE10TA PO
[2017-12-12] MEDS ORDERED: SODIUM CHLOR 0.9% 1000 ML INJ 1,000 ML IV SCH ×2 (01:50→03:30)
[2017-12-12] MEDS ORDERED: ONDANSETRON HCL 4 MG/2 ML VIAL IVP ONE ×2 (02:00→03:30)
[2017-12-12] MEDS ORDERED: SODIUM CHLORIDE 0.9% FLUSH 10 ML FLUSH IV FLUSH PRN ×3 (02:00→06:00)
[2017-12-12] MEDS ORDERED: IBUP1TAB5 PO (02:02)
[2017-12-12] MEDS ORDERED: MULTTAB67 PO (02:02)
[2017-12-12] MEDS ORDERED: SIMV20TA PO (02:02)
[2017-12-12 02:11] LABS: BILIRUBIN, URINE NEG (NEG); BLOOD, URINE NEG (NEG); GLUCOSE,URINE NEG (NEG); KETONE, URINE TRACE mg/dL (NEG); NITRITE,URINE NEG (NEG); PH, URINE 8.5 (5.0-8.5); URINE LEUKOCYTE ESTERASE TRACE (NEG)
[2017-12-12 02:17] LABS: AUTOMATED NEUTROPHIL # 22.6 TH/MM3 (1.8-7.7); BASOPHIL # 0.8 TH/MM3 (0-0.2); EOSINOPHIL % 0.1 % (0.0-4.0); HEMATOCRIT 39.9 % (39.0-51.0); HEMOGLOBIN 13.3 GM/DL (13.0-17.0); LYMPH % 3.6 % (9.0-44.0); LYMPHOCYTE # 0.9 TH/MM3 (1.0-4.8); MEAN CELL VOLUME 92.7 FL (80.0-100.0); MEAN CORPUSCULAR HGB CONC 33.4 % (32.0-36.0); MEAN PLATELET VOLUME 7.7 FL (7.0-11.0); MONO % 6.7 % (0.0-8.0); MONOCYTE # 1.7 TH/MM3 (0-0.9); NEUT % 86.6 % (16.0-70.0); PLATELET COUNT 226 TH/MM3 (150-450); RED CELL DISTRIBUTION WIDTH 14.4 % (11.6-17.2)
[2017-12-12 02:23] LABS: RBC, URINE 0-3 /hpf (0-3); SQUAMOUS EPITHELIAL CELL URINE 0-5 /hpf (0-5); URINE COLOR YELLOW (YELLW/STRAW)
[2017-12-12 02:24] LABS: CHLORIDE 102 MEQ/L (98-107); SODIUM (NA) 141 MEQ/L (136-145)
--- NOTE | 2017-12-12 02:27 | RADRPT ---
EXAM DATE/TIME: 12/12/2017 02:06 [facility] COMPARISON: CHEST SINGLE AP, December 01, 2017, 5:18. INDICATIONS : Difficulty breathing, abdominal pain for 12 hours MEDICAL HISTORY : Cardiovascular disease. SURGICAL HISTORY : Coronary artery stent. CABG. Pacemaker ENCOUNTER: Initial ACUITY: 1 day PAIN SCORE: 0/10 LOCATION: Bilateral chest FINDINGS: A single view of the chest demonstrates the lungs to be symmetrically aerated without evidence of mas s, infiltrate or effusion. The cardiomediastinal contours are unremarkable. Patient has had previous median sternotomy and CABG. There is a cardiac pacer/defibrillator. Old right rib fractures are again noted. CONCLUSION: No evidence of acute cardiopulmonary disease. Resolved bibasilar consolidation.. Iain Barnett MD on December 12, 2017 at 2:24 Board Certified Radiologist. This report was verified electronically.
[2017-12-12 02:28] LABS: CALCIUM 8.9 MG/DL (8.5-10.1)
[2017-12-12 02:29] LABS: ALBUMIN 3.3 GM/DL (3.4-5.0); BICARBONATE 30.1 MEQ/L (21.0-32.0); BLOOD UREA NITROGEN 35 MG/DL (7-18); GLUCOSE,RANDOM 137 MG/DL (74-106)
[2017-12-12 02:31] LABS: ALT (GPT) 18 U/L (12-78); AST (GOT) 16 U/L (15-37)
[2017-12-12 02:32] LABS: GLOMERULAR FILTRATION RATE 46 ML/MIN (>89)
[2017-12-12 02:33] LABS: TOTAL BILIRUBIN ADULT 0.3 MG/DL (0.2-1.0); TOTAL PROTEIN 7.5 GM/DL (6.4-8.2)
[2017-12-12 02:34] LABS: ALKALINE PHOSPHATASE 52 U/L (45-117)
[2017-12-12 02:35] LABS: TROPONIN I LESS THAN 0.02 NG/ML (0.02-0.05)
[2017-12-12 02:40] LABS: BANDS 12 % (0-6); LYMPHOCYTES 6 % (9-44); MONOCYTES 6 % (0-8); NEUTROPHIL # MANUAL DIFF 22.9 TH/MM3 (1.8-7.7); POLYS (SEG NEUTROPHILS) 76 % (16-70)
[2017-12-12] MEDS ORDERED: HYDROmorphone HCL PF 2 MG/ML VIAL IVS ONE (03:30)
--- NOTE | 2017-12-12 03:56 | PD ---
HPI Chief Complaint: Cardiac Complaint Time Seen by Provider: 01:50 Travel History International Travel<30 days: No Contact w/Intl Traveler<30days: No Traveled to known affect area: No History of Present Illness HPI The patient is a 72-year-old male that complains of pressure in the right upper quadrant beginning around 4 PM yesterday. He had just eaten a large hamburger. He still has his gallbladder and appendix. He has had multiple cardiac surgeries including a triple bypass. Apparently, they had to go through the abdomen to pull out a clot in the back of these are the patient states. He has a large abdominal incision there. The patient has nausea without vomiting. He denies any fever. PFSH Past Medical History Hx Anticoagulant Therapy: Yes Blood Disorders: No Anxiety: Yes Depression: Yes Heart Rhythm Problems: Yes Cancer: No Cardiovascular Problems: Yes (chf,bypass) High Cholesterol: Yes Chemotherapy: No Chest Pain: Yes Congestive Heart Failure: Yes (WITH THIS ADMISSION ) Diminished Hearing: No Endocrine: No Genitourinary: Yes Hypertension: Yes Immune Disorder: No Implanted Vascular Access Dvce: Yes Musculoskeletal: Yes (NEUROPATHY IN LOWER LEGS) Neurologic: No Psychiatric: Yes (BIPOLAR ) Reproductive: No Respiratory: Yes Radiation Therapy: No Tetanus Vaccination: < 5 Years Influenza Vaccination: No ?: Not Past Surgical History Body Medical Devices: STENT, PACEMAKER, SCREWS IN LEFT SHOULDER Cardiac Surgery: Yes (stent june 05, bypass surgery ) Pacemaker: Yes Other Surgery: Yes Social History Alcohol Use: No Tobacco Use: No Substance Use: No Allergies-Medications (Allergen,Severity, Reaction): Coded Allergies: No Known Allergies (Verified Allergy, Unknown, 12/12/17) Reported Meds & Prescriptions Reported Meds & Active Scripts Active Potassium Chloride ER (Potassium Chloride) 20 Meq Tab 20 Meq PO DAILY Furosemide 20 Mg Tab 20 Mg PO BID Eliquis (Apixaban) 5 Mg Tab 5 Mg PO BID Lisinopril 10 Mg Tab 10 Mg PO DAILY Coreg (Carvedilol) 12.5 Mg Tab 12.5 Mg PO DAILY Atorvastatin (Atorvastatin Calcium) 40 Mg Tab 40 Mg PO HS Reported Ibuprofen 400 Mg Tab 400 Mg PO Q8H PRN Multiple Vitamin 1 Tab 1 Tab PO DAILY Simvastatin 20 Mg Tab 20 Mg PO DAILY Divalproex DR (Divalproex Sodium) 500 Mg Tabdr 500 Mg PO TID Duloxetine DR (Duloxetine HCl) 60 Mg Capdr 60 Mg PO DAILY Tamsulosin (Tamsulosin HCl) 0.4 Mg Cap 0.8 Mg PO HS Plavix (Clopidogrel Bisulfate) 75 Mg Tab 75 Mg PO DAILY Amiodarone (Amiodarone HCl) 200 Mg Tab 200 Mg PO DAILY Gabapentin 300 Mg Cap 300 Mg PO TID Tramadol (Tramadol HCl) 50 Mg Tab 50 Mg PO Q6H PRN Review of Systems Except as stated in HPI: all other systems reviewed are Neg Physical Exam Narrative GENERAL: The patient is alert, slightly obese, oriented 3 in moderate to severe distress with his right upper quadrant pain. His vital signs show blood pressure 150/78 with a heart rate of 1 awake but otherwise are normal. SKIN: Focused skin assessment warm/dry. HEAD: Atraumatic. Normocephalic. EYES: Pupils equal and round. No scleral icterus. No injection or drainage. ENT: No nasal bleeding or discharge. Mucous membranes pink and moist. NECK: Trachea midline. No JVD. CARDIOVASCULAR: Regular rate and rhythm. No murmur appreciated. RESPIRATORY: No accessory muscle use. Clear to auscultation. Breath sounds equal bilaterally. GASTROINTESTINAL: Abdomen shows guarding in the right upper quadrant and positive Bryan sign, nondistended. Hepatic and splenic margins not palpable. MUSCULOSKELETAL: No obvious deformities. No clubbing. No cyanosis. No edema. NEUROLOGICAL: Awake and alert. No obvious cranial nerve deficits. Motor grossly within normal limits. Normal speech. PSYCHIATRIC: Appropriate mood and affect; insight and judgment normal. Data Data Last Documented VS Vital Signs Date Time Temp Pulse Resp B/P (MAP) Pulse Ox O2 Delivery O2 Flow Rate FiO2 12/12/17 05:42 89 18 119/74 (89) 95 Nasal Cannula 2.00 12/12/17 01:33 98.2 Orders Orders Electrocardiogram (12/12/17 01:41) Complete Blood Count With Diff (12/12/17 01:41) Ckmb (Isoenzyme) Profile (12/12/17 01:41) Troponin I (12/12/17 01:41) Chest, Single Ap (12/12/17 01:41) Iv Access Insert/Monitor (12/12/17 01:41) Ecg Monitoring (12/12/17 01:41) Oxygen Administration (12/12/17 01:41) Oximetry (12/12/17 01:41) B-Type Natriuretic Peptide (12/12/17 01:41) Comprehensive Metabolic Panel (12/12/17 01:50) Lipase (12/12/17 01:50) Urinalysis - C+S If Indicated (12/12/17 01:50) Ondansetron Inj (Zofran Inj) (12/12/17 02:00) Sodium Chlor 0.9% 1000 Ml Inj (Ns 1000 M (12/12/17 01:50) Sodium Chloride 0.9% Flush (Ns Flush) (12/12/17 02:00) Electrocardiogram (12/12/17 01:50) CKMB (12/12/17 01:55) CKMB% (12/12/17 01:55) Hydromorphone Pf Inj (Dilaudid Pf Inj) (12/12/17 03:30) Ondansetron Inj (Zofran Inj) (12/12/17 03:30) Sodium Chlor 0.9% 1000 Ml Inj (Ns 1000 M (12/12/17 03:30) Sodium Chloride 0.9% Flush (Ns Flush) (12/12/17 03:45) Ct Abd/Pel W Iv Contrast(Rout) (12/12/17 03:34) Iohexol 350 Inj (Omnipaque 350 Inj) (12/12/17 04:20) Hydromorphone Pf Inj (Dilaudid Pf Inj) (12/12/17 05:15) Ondansetron Inj (Zofran Inj) (12/12/17 05:15) Place In Observation (12/12/17 ) Vital Signs (Adult) Q4H (12/12/17 05:48) Diet Npo (12/12/17 Breakfast) Sodium Chlor 0.9% 1000 Ml Inj (Ns 1000 M (12/12/17 05:48) Sodium Chloride 0.9% Flush (Ns Flush) (12/12/17 06:00) Sodium Chloride 0.9% Flush (Ns Flush) (12/12/17 09:00) Acetaminophen (Tylenol) (12/12/17 06:00) Ondansetron Inj (Zofran Inj) (12/12/17 06:00) Comprehensive Metabolic Panel (12/13/17 06:00) Complete Blood Count With Diff (12/13/17 06:00) Scd Bilateral/Knee High EDWARD.BID (12/12/17 05:48) Naloxone Inj (Narcan Inj) (12/12/17 06:00) Docusate Sodium-Senna (Lillian-Colace) (12/12/17 09:00) Magnesium Hydroxide Liq (Milk Of Magnesi (12/12/17 06:00) Sennosides (Senokot) (12/12/17 06:00) Bisacodyl Supp (Dulcolax Supp) (12/12/17 06:00) Lactulose Liq (Lactulose Liq) (12/12/17 06:00) Piperacil-Tazo 3.375 Gm Premix (Zosyn 3. (12/12/17 06:00) Consult General Surgery (12/12/17 ) Admit Order (Ed Use Only) (12/12/17 05:50) Labs Laboratory Tests Test 12/12/17 01:55 12/12/17 02:03 White Blood Count 26.0 TH/MM3 Red Blood Count 4.30 MIL/MM3 Hemoglobin 13.3 GM/DL Hematocrit 39.9 % Mean Corpuscular Volume 92.7 FL Mean Corpuscular Hemoglobin 31.0 PG Mean Corpuscular Hemoglobin Concent 33.4 % Red Cell Distribution Width 14.4 % Platelet Count 226 TH/MM3 Mean Platelet Volume 7.7 FL Neutrophils (%) (Auto) 86.6 % Lymphocytes (%) (Auto) 3.6 % Monocytes (%) (Auto) 6.7 % Eosinophils (%) (Auto) 0.1 % Basophils (%) (Auto) 3.0 % Neutrophils # (Auto) 22.6 TH/MM3 Lymphocytes # (Auto) 0.9 TH/MM3 Monocytes # (Auto) 1.7 TH/MM3 Eosinophils # (Auto) 0.0 TH/MM3 Basophils # (Auto) 0.8 TH/MM3 CBC Comment AUTO DIFF Differential Total Cells Counted 100 Neutrophils % (Manual) 76 % Band Neutrophils % 12 % Lymphocytes % 6 % Monocytes % 6 % Neutrophils # (Manual) 22.9 TH/MM3 Differential Comment FINAL DIFF MANUAL Platelet Estimate NORMAL Platelet Morphology Comment NORMAL Red Cell Morphology Comment NORMAL Blood Urea Nitrogen 35 MG/DL Creatinine 1.50 MG/DL Random Glucose 137 MG/DL Total Protein 7.5 GM/DL Albumin 3.3 GM/DL Calcium Level 8.9 MG/DL Alkaline Phosphatase 52 U/L Aspartate Amino Transf (AST/SGOT) 16 U/L Alanine Aminotransferase (ALT/SGPT) 18 U/L Total Bilirubin 0.3 MG/DL Sodium Level 141 MEQ/L Potassium Level 3.6 MEQ/L Chloride Level 102 MEQ/L Carbon Dioxide Level 30.1 MEQ/L Anion Gap 9 MEQ/L Estimat Glomerular Filtration Rate 46 ML/MIN Total Creatine Kinase 136 U/L Creatine Kinase MB 3.2 NG/ML Troponin I LESS THAN 0.02 NG/ML B-Type Natriuretic Peptide 131 PG/ML Lipase 143 U/L Urine Color YELLOW Urine Turbidity CLEAR Urine pH 8.5 Urine Specific [place] 1.017 Urine Protein NEG mg/dL Urine Glucose (UA) NEG mg/dL Urine Ketones TRACE mg/dL Urine Occult Blood NEG Urine Nitrite NEG Urine Bilirubin NEG Urine Leukocyte Esterase TRACE Urine RBC 0-3 /hpf Urine WBC 6-8 /hpf Urine Squamous Epithelial Cells 0-5 /hpf Urine Bacteria NONE /hpf Microscopic Urinalysis Comment CULT NOT INDICATED MDM Medical Decision Making Medical Screen Exam Complete: Yes Emergency Medical Condition: Yes Medical Record Reviewed: Yes Interpretation(s) The EKG shows sinus tachycardia with a rate of 100, left axis deviation with left bundle-branch block. There is essentially no change from an EKG done on the 12th of this month. The CT abdomen/pelvis with IV contrast shows cholelithiasis and CT findings concerning for acute cholecystitis. Differential Diagnosis Cholecystitis, colitis, cholelithiasis with colic, acute coronary syndrome Narrative Course Clinically, the patient has acute cholecystitis. Unfortunately, he has heart disease, peripheral vascular disease with aortofemoral bypass graft and is on Eliquis. Diagnosis Primary Impression: Acute cholecystitis Admitting Information Admitting Physician Requests: Admit Elgin Barber MD Dec 12, 2017 03:56
[2017-12-12] MEDS ORDERED: IOHEXOL 350 MG/ML 10 ML VIAL (for RAD DIAG) IVCONTRAST ONE (04:20)
--- NOTE | 2017-12-12 04:41 | RADRPT ---
EXAM DATE/TIME: 12/12/2017 04:07 [facility] COMPARISON: No previous studies available for comparison. INDICATIONS : Right upper abdomen pain today. IV CONTRAST: 70 cc Omnipaque 350 (iohexol) IV ORAL CONTRAST: No oral contrast ingested. RADIATION DOSE: 16.31 CTDIvol (mGy) MEDICAL HISTORY : Congestive heart failure. Hypertension. SURGICAL HISTORY : Pacemaker. ENCOUNTER: Initial ACUITY: 1 day PAIN SCALE: 5/10 LOCATION: Right upper quadrant TECHNIQUE: Volumetric scanning of the abdomen and pelvis was performed. Using automated exposure control and ad justment of the mA and/or kV according to patient size, radiation dose was kept as low as reasonably achievable to obtain optimal diagnostic quality images. DICOM format image data is available electro nically for review and comparison. FINDINGS: LOWER LUNGS: The visualized lower lungs are clear. LIVER: Gallbladder packed with stones and has haziness/indistinctness of its margins. No pericholecystic flu id demonstrated. No duct stone or ductal dilatation. Liver is within normal limits. SPLEEN: Normal size without lesion. PANCREAS: Within normal limits. KIDNEYS: Normal in size and shape. 2.4 cm cyst left mid zone. There is no solid mass, stone or hydronephrosis . ADRENAL GLANDS: Within normal limits. VASCULAR: Atherosclerotic aorta and iliac arteries. Previous aortobifem bypass and appears patent. BOWEL/MESENTERY: No obstruction or acute inflammatory changes are seen. There is moderate diverticulosis of the sigmoi d colon. ABDOMINAL WALL: Several ventral hernias are seen in between the umbilicus and xiphoid process. The largest hernia is approximately 6.2 cm across and contains a short segment of transverse colon without obstruction or e vidence of strangulation. RETROPERITONEUM: There is no lymphadenopathy. BLADDER: No wall thickening or mass. REPRODUCTIVE: Within normal limits. INGUINAL: There is no lymphadenopathy or hernia. MUSCULOSKELETAL: No acute bony abnormality demonstrated. Old fractures are seen of several lower right ribs. CONCLUSION: 1. Cholelithiasis and with CT findings of concern for early or mild acute cholecystitis in the proper clinical setting. No duct stone or obstruction. 2. No other acute abnormalities are demonstrated. Ventral hernia containing transverse colon but with out evidence of obstruction or strangulation. Aortofemoral bypass changes and appears patent. Iain Barnett MD on December 12, 2017 at 4:34 Board Certified Radiologist. This report was verified electronically.
[2017-12-12] MEDS ORDERED: HYDROmorphone HCL PF 2 MG/ML VIAL IV PUSH ONE (05:15)
[2017-12-12] MEDS ORDERED: ONDANSETRON HCL 4 MG/2 ML VIAL IV ONE (05:15)
[2017-12-12] MEDS ORDERED: ACETAMINOPHEN 325 MG TAB PO PRN (06:00)
[2017-12-12] MEDS ORDERED: BISACODYL 10 MG SUPP RECTAL PRN (06:00)
[2017-12-12] MEDS ORDERED: NALOXONE HCL 0.4 MG/ML AMP IV PUSH PRN (06:00)
[2017-12-12] MEDS ORDERED: MAGNESIUM HYDROXIDE SUSP 30 ML CUP PO PRN (06:00)
[2017-12-12] MEDS ORDERED: SENNOSIDES 8.6 MG TAB PO PRN (06:00)
[2017-12-12] MEDS ORDERED: LACTULOSE SYRUP 20 GM/30 ML CUP PO PRN (06:00)
[2017-12-12] MEDS ORDERED: ONDANSETRON HCL 4 MG/2 ML VIAL IVP PRN (06:00)
[2017-12-12] MEDS: SODIUM CHLOR 0.9% 1000 ML INJ 1,000 ML IV SCH ×2 (06:33→17:48)
[2017-12-12] MEDS: PIPERACIL-TAZO 3.375 GM PREMIX 50 ML IV SCH ×4 (06:49→22:04)
[2017-12-12] MEDS: SODIUM CHLORIDE 0.9% FLUSH 10 ML FLUSH IV FLUSH SCH ×2 (08:57→19:56)
[2017-12-12] MEDS: DOCUSATE SODIUM 50 MG/SENNA 8.6 MG TAB PO SCH ×2 (08:58→19:56)
[2017-12-12] MEDS ORDERED: ACETAMINOPHEN 1000 MG/100 ML 65 ML IV ONE (09:00)
[2017-12-12] MEDS: MORPHINE SULFATE 2 MG/ML INJ IV PRN ×2 (12:17→20:03)
--- NOTE | 2017-12-12 12:21 | HHI.HP ---
[facility] Unknown Admission Diagnosis Acute cholecystitis Diagnoses: (1) Acute cholecystitis Diagnosis: Principal Chief Complaint: Abdominal pain right upper quadrant Travel History International Travel<30 Days: No Contact w/Intl Traveler <30 Da: No Traveled to Known Affected Are: No Sepsis Criteria SIRS Criteria (2 or more): Temp > 100.9 or < 96.8, Heart rate over 90, WBC > 61038, < 4000 or > 10% bands Sepsis Criteria (SIRS+source): Infect source susp/known History of Present Illness This is a 72-year-old male patient with a known medical history of CAD with stent placement on Plavix, CHF, atrial fibrillation on Eliquis, hyperlipidemia and HTN who presented to the ED with complaints of right upper quadrant abdominal pain. Patient seen and examined in hospital room, just received IV morphine for abdominal pain, patient is alert and oriented although with intermittent lethargy. Patient expressing some confusion regarding events leading up to hospital. Upon review of records supposedly patient's abdominal pain started around sixteen hundred yesterday afternoon after eating a large lunch, the pain was located in his right upper quadrant, patient states it was very severe and sharp in nature, denies any associated nausea or vomiting. Patient denies any recent fevers, chills, cough, shortness of breath, diarrhea or dysuria. Patient states he was in his normal state of health up until yesterday afternoon. CT of the abdomen/pelvis was done in ED showing cholelithiasis and concern for mild or moderate Cholecystitis. Patient does have chronic atrial fibrillation and on Eliquis as well as previous stent placement on Plavix. General surgery has been following patient with possible cholecystectomy, although patient is taking blood thinner and Plavix and unaware of time when cardiac stents were placed. Review of Systems Constitutional: DENIES: Fatigue, Fever, Chills Eyes: DENIES: Blurred vision, Diplopia Respiratory: DENIES: Cough Cardiovascular: DENIES: Chest pain, Palpitations Gastrointestinal: COMPLAINS OF: Abdominal pain, DENIES: Black stools, Bloody stools, Constipation, Diarrhea, Nausea, Vomiting Hematologic/lymphatic: DENIES: Bruising Immunologic/allergic: DENIES: Eczema Neurologic: DENIES: Abnormal gait Psychiatric: DENIES: Anxiety Except as stated in HPI: all other systems reviewed are Neg Past Family Social History Past Medical History HTN, CAD s/p CABG, AICD and A-fib on Eliquis Past Surgical History Cardiac Stent, CABG, AICD Reported Medications Active Potassium Chloride ER (Potassium Chloride) 20 Meq Tab 20 Meq PO DAILY Furosemide 20 Mg Tab 20 Mg PO BID Eliquis (Apixaban) 5 Mg Tab 5 Mg PO BID Lisinopril 10 Mg Tab 10 Mg PO DAILY Coreg (Carvedilol) 12.5 Mg Tab 12.5 Mg PO DAILY Atorvastatin (Atorvastatin Calcium) 40 Mg Tab 40 Mg PO HS Reported Ibuprofen 400 Mg Tab 400 Mg PO Q8H PRN Multiple Vitamin 1 Tab 1 Tab PO DAILY Simvastatin 20 Mg Tab 20 Mg PO DAILY Divalproex DR (Divalproex Sodium) 500 Mg Tabdr 500 Mg PO TID Duloxetine DR (Duloxetine HCl) 60 Mg Capdr 60 Mg PO DAILY Tamsulosin (Tamsulosin HCl) 0.4 Mg Cap 0.8 Mg PO HS Plavix (Clopidogrel Bisulfate) 75 Mg Tab 75 Mg PO DAILY Amiodarone (Amiodarone HCl) 200 Mg Tab 200 Mg PO DAILY Gabapentin 300 Mg Cap 300 Mg PO TID Tramadol (Tramadol HCl) 50 Mg Tab 50 Mg PO Q6H PRN Allergies: Coded Allergies: No Known Allergies (Verified Allergy, Unknown, 12/12/17) Active Ordered Medications Current Medications Medications (Trade) Dose Ordered Sig/Eliot Route Start Time Stop Time Status Last Admin Sodium Chloride 1,000 ml @ 100 mls/hr Q10H IV 12/12/17 05:48 12/12/17 06:33 (NS Flush) 2 ml UNSCH PRN IV FLUSH 12/12/17 06:00 (NS Flush) 2 ml BID IV FLUSH 12/12/17 09:00 (Tylenol) 650 mg Q4H PRN PO 12/12/17 06:00 (Zofran Inj) 4 mg Q6H PRN IVP 12/12/17 06:00 (Narcan Inj) 0.4 mg UNSCH PRN IV PUSH 12/12/17 06:00 (Lillian-Colace) 1 tab BID PO 12/12/17 09:00 12/12/17 08:58 (Milk Of Magnesia Liq) 30 ml Q12H PRN PO 12/12/17 06:00 (Senokot) 17.2 mg Q12H PRN PO 12/12/17 06:00 (Dulcolax Supp) 10 mg DAILY PRN RECTAL 12/12/17 06:00 (Lactulose Liq) 30 ml DAILY PRN PO 12/12/17 06:00 Piperacillin Sod/ Tazobactam Sod 50 ml @ 100 mls/hr Q6H IV 12/12/17 06:00 12/12/17 06:49 (Morphine Inj) 2 mg Q4H PRN IV 12/12/17 11:45 (Rodant[place] 5-325 Mg) 1 tab Q6H PRN PO 12/12/17 11:45 ([place] 5-325 Mg) 2 tab Q6H PRN PO 12/12/17 11:45 Family History Reviewed. No h/o DM or CAD Social History Negative for alcohol, tobacco or drugs. Physical Exam Vital Signs Vital Signs Date Time Temp Pulse Resp B/P (MAP) Pulse Ox O2 Delivery O2 Flow Rate FiO2 12/12/17 08:00 98.8 88 18 140/72 (94) 93 12/12/17 06:38 101.3 102 22 135/60 (85) 95 12/12/17 06:20 90 16 95 Nasal Cannula 2.00 12/12/17 05:42 89 18 119/74 (89) 95 Nasal Cannula 2.00 12/12/17 04:39 90 18 133/69 (90) 95 Nasal Cannula 2.00 12/12/17 03:48 92 18 136/70 (92) 95 Nasal Cannula 2.00 12/12/17 02:32 99 16 98 Room Air 12/12/17 02:10 95 Room Air 12/12/17 02:10 95 Room Air 12/12/17 01:33 98.2 108 18 150/78 (102) 95 Physical Exam GENERAL: Well-developed, well-nourished patient lying in bed with complaints of right upper quadrant pain. Somewhat lethargic secondary to morphine SKIN: Warm and dry. No rash. HEAD: Normocephalic. Atraumatic. EYES: Pupils equal and round. No scleral icterus. No injection or drainage. ENT: No nasal bleeding or discharge. Mucous membranes pink and moist. NECK: Supple. Trachea midline. CARDIOVASCULAR: Regular rate and rhythm. S1, S2 noted. No murmur appreciated. RESPIRATORY: No accessory muscle use. Clear to auscultation. Breath sounds equal bilaterally. GASTROINTESTINAL: Abdomen soft, round, tender to right upper quadrant palpation. Hypoactive bowel sounds x4. MUSCULOSKELETAL: No obvious deformities. Extremities without clubbing, cyanosis , or edema. NEUROLOGICAL: Awake and alert. No obvious cranial nerve deficits. Motor grossly within normal limits. 5/5 muscle strength in bilateral upper and lower extremities. Normal speech. Laboratory Laboratory Tests Test 12/12/17 01:55 12/12/17 02:03 White Blood Count 26.0 Red Blood Count 4.30 Hemoglobin 13.3 Hematocrit 39.9 Mean Corpuscular Volume 92.7 Mean Corpuscular Hemoglobin 31.0 Mean Corpuscular Hemoglobin Concent 33.4 Red Cell Distribution Width 14.4 Platelet Count 226 Mean Platelet Volume 7.7 Neutrophils (%) (Auto) 86.6 Lymphocytes (%) (Auto) 3.6 Monocytes (%) (Auto) 6.7 Eosinophils (%) (Auto) 0.1 Basophils (%) (Auto) 3.0 Neutrophils # (Auto) 22.6 Lymphocytes # (Auto) 0.9 Monocytes # (Auto) 1.7 Eosinophils # (Auto) 0.0 Basophils # (Auto) 0.8 CBC Comment AUTO DIFF Differential Total Cells Counted 100 Neutrophils % (Manual) 76 Band Neutrophils % 12 Lymphocytes % 6 Monocytes % 6 Neutrophils # (Manual) 22.9 Differential Comment FINAL DIFF MANUAL Platelet Estimate NORMAL Platelet Morphology Comment NORMAL Red Cell Morphology Comment NORMAL Blood Urea Nitrogen 35 Creatinine 1.50 Random Glucose 137 Total Protein 7.5 Albumin 3.3 Calcium Level 8.9 Alkaline Phosphatase 52 Aspartate Amino Transf (AST/SGOT) 16 Alanine Aminotransferase (ALT/SGPT) 18 Total Bilirubin 0.3 Sodium Level 141 Potassium Level 3.6 Chloride Level 102 Carbon Dioxide Level 30.1 Anion Gap 9 Estimat Glomerular Filtration Rate 46 Total Creatine Kinase 136 Creatine Kinase MB 3.2 Troponin I LESS THAN 0.02 B-Type Natriuretic Peptide 131 Lipase 143 Urine Color YELLOW Urine Turbidity CLEAR Urine pH 8.5 Urine Specific [place] 1.017 Urine Protein NEG Urine Glucose (UA) NEG Urine Ketones TRACE Urine Occult Blood NEG Urine Nitrite NEG Urine Bilirubin NEG Urine Leukocyte Esterase TRACE Urine RBC 0-3 Urine WBC 6-8 Urine Squamous Epithelial Cells 0-5 Urine Bacteria NONE Microscopic Urinalysis Comment CULT NOT INDICATED Result Diagram: 12/12/17 0155 12/12/17154 Imaging Last Impressions Abdomen/Pelvis CT 12/12/174 Signed Impressions: Service Date/Time: Tuesday, December 12, 2017 04:07 - CONCLUSION: 1. Cholelithiasis and with CT findings of concern for early or mild acute cholecystitis in the proper clinical setting. No duct stone or obstruction. 2. No other acute abnormalities are demonstrated. Ventral hernia containing transverse colon but without evidence of obstruction or strangulation. Aortofemoral bypass changes and appears patent. Iain Barnett MD Chest X-Ray 12/12/17 014 Signed Impressions: Service Date/Time: Tuesday, December 12, 2017 02:06 - CONCLUSION: No evidence of acute cardiopulmonary disease. Resolved bibasilar consolidation.. Iain Barnett MD Septic Shock Reassessment Septic shock perfusion: reassessment completed Caprini VTE Risk Assessment Caprini VTE Risk Assessment: Mod/High Risk (score >= 2) Caprini Risk Assessment Model Point Value = 1 Point Value = 2 Point Value = 3 Point Value = 5 Age 41-60 Minor surgery BMI > 25 kg/m2 Swollen legs Varicose veins or History of unexplained or recurrent spontaneous Oral contraceptives or hormone replacement Sepsis (< 1 month) Serious lung disease, including pneumonia (< 1 month) Abnormal pulmonary function Acute myocardial infarction Congestive heart failure (< 1 month) History of inflammatory bowel disease Medical patient at bed rest Age 61-74 Arthroscopic surgery Major open surgery (> 45 min) Laparoscopic surgery (> 45 min) Malignancy Confined to bed (> 72 hours) Immobilizing plaster cast Central venous access Age >= 75 History of VTE Family history of VTE Factor V Leiden Prothrombin [id number] Lupus anticoagulant Anticardiolipin antibodies Elevated serum homocysteine Heparin-induced thrombocytopenia Other congenital or acquired thrombophilia Stroke (< 1 month) Elective arthroplasty Hip, pelvis, or leg fracture Acute spinal cord injury (< 1 month) Prophylaxis Regimen Total Risk Factor Score Risk Level Prophylaxis Regimen 0-1 Low Early ambulation 2 Moderate Order ONE of the following: *Sequential Compression Device (SCD) *Heparin 5000 units SQ BID 3-4 Higher Order ONE of the following medications: *Heparin 5000 units SQ TID *Enoxaparin/Lovenox 40 mg SQ daily (WT < 150 kg, CrCl > 30 mL/min) *Enoxaparin/Lovenox 30 mg SQ daily (WT < 150 kg, CrCl > 10-29 mL/min) *Enoxaparin/Lovenox 30 mg SQ BID (WT < 150 kg, CrCl > 30 mL/min) AND/OR *Sequential Compression Device (SCD) 5 or more Highest Order ONE of the following medications: *Heparin 5000 units SQ TID (Preferred with Epidurals) *Enoxaparin/Lovenox 40 mg SQ daily (WT < 150 kg, CrCl > 30 mL/min) *Enoxaparin/Lovenox 30 mg SQ daily (WT < 150 kg, CrCl > 10-29 mL/min) *Enoxaparin/Lovenox 30 mg SQ BID (WT < 150 kg, CrCl > 30 mL/min) AND *Sequential Compression Device (SCD) Assessment and Plan Problem List: (1) Acute cholecystitis ICD Code: K81.0 - Acute cholecystitis Status: Acute Assessment and Plan This is a 72-year-old male patient with a known medical history of CAD with stent placement on Plavix, CHF, atrial fibrillation on Eliquis, hyperlipidemia and HTN who presented to the ED with complaints of right upper quadrant abdominal pain. Acute cholecystitis presented with right upper quadrant abdominal pain Meet sepsis criteria with suspected source from above (febrile TMAX 101.3, leukocytosis, tachycardia, tachypnea) With leukocytosis, white blood cell 26 suspect secondary to above. Monitor for infection, patient is afebrile. Chest x-ray reviewed showing no acute cardiopulmonary disease resolved consolidation. UA negative. Lactic acid pending. Follow. Blood cultures pending. Follow. Will start prophylactic antibiotics, Zosyn IV. CT abdomen/pelvis reviewed showing cholelithiasis concern for mild or moderate cholecystitis. Gen. surgery has been consulted, appreciate input recommendations. For now will place on clear liquid diet, monitor for toleration. Pain control, IV narcotics available for breakthrough, Rodanthe available when necessary for pain scale. Patient has history of CAD with cardiac stent placement on Plavix and atrial fibrillation on Eliquis, cardiology consulted to clear for surgery. Cardiology has seen patient, it is questionable when the patient underwent cardiac stent placement, at this time will continue Plavix until records are obtained regarding timing of stent placement. Will attempt to obtain records. Supportive care. Supplemental O2 as needed, on 2 L nasal cannula. Acute kidney injury suspect secondary to dehydration versus sepsis Creatinine 1.5 on presentation. Continue hydration. Monitor intake and output. Will recheck BMP in a.m. Follow. CAD with cardiac stent placement Congestive heart failure, not in exacerbation CHF fibrillation on Eliquis Hyperlipidemia, chronic Hypertension, chronic Will continue Plavix and Eliquis for now. We'll try to obtain records regarding timing of cardiac stent placement. Once obtained, will place him on Plavix and Eliquis for possible cholecystectomy. Continue cardiac telemetry, monitor for arrhythmias. BNP 131. DVT prophylaxis: SCDs. On Eliquis. Maureen Cantrell Dec 12, 2017 12:21
--- NOTE | 2017-12-12 13:11 | PD.CONS ---
HPI Consult Requested By Primary Care Physician Unknown History of Present Illness 72-year-old male with past medical history is CAD status post CABG(10 years ago ) and PCI (3months ago?), A. fib on Eliquis, HLD, HTN who presented with cholecystitis. The patient has been having sharp right upper quadrant abdominal discomfort and nausea since yesterday, elevated white count, and an abdominal CT scan showing cholelithiasis with mild acute cholecystitis. We have been asked see the patient regarding cardiac clearance prior to surgery. The patient is a poor historian and currently is a bit somnolent secondary to receiving morphine. The patient did have an admission in October here for chest pain and shortness of breath with possible ischemia on Lexiscan, had cardiac catheterization with Dr. Hoff which showed severe [place] coronary artery disease with patent LUI to LAD, occluded saphenous vein grafts to right coronary and left circumflex. The patient denies any further chest pain or shortness of breath since previous discharge. The patient does state that he has had a recent cardiac stent possibly about 3 months ago, although the patient cannot tell me what performed this intervention or where he had this done at. The patient denies having any peripheral interventions done before. Discussed with hospitalist team, who will attempt to obtain records. Review of Systems Negative except as stated in the history of present illness Past Family Social History Allergies: Coded Allergies: No Known Allergies (Verified Allergy, Unknown, 12/12/17) Past Medical History HTN, CAD s/p CABG, A-fib on Eliquis Past Surgical History Cardiac Stent, CABG Reported Medications Reported Meds & Active Scripts Active Potassium Chloride ER (Potassium Chloride) 20 Meq Tab 20 Meq PO DAILY Furosemide 20 Mg Tab 20 Mg PO BID Eliquis (Apixaban) 5 Mg Tab 5 Mg PO BID Lisinopril 10 Mg Tab 10 Mg PO DAILY Coreg (Carvedilol) 12.5 Mg Tab 12.5 Mg PO DAILY Atorvastatin (Atorvastatin Calcium) 40 Mg Tab 40 Mg PO HS Reported Ibuprofen 400 Mg Tab 400 Mg PO Q8H PRN Multiple Vitamin 1 Tab 1 Tab PO DAILY Simvastatin 20 Mg Tab 20 Mg PO DAILY Divalproex DR (Divalproex Sodium) 500 Mg Tabdr 500 Mg PO TID Duloxetine DR (Duloxetine HCl) 60 Mg Capdr 60 Mg PO DAILY Tamsulosin (Tamsulosin HCl) 0.4 Mg Cap 0.8 Mg PO HS Plavix (Clopidogrel Bisulfate) 75 Mg Tab 75 Mg PO DAILY Amiodarone (Amiodarone HCl) 200 Mg Tab 200 Mg PO DAILY Gabapentin 300 Mg Cap 300 Mg PO TID Tramadol (Tramadol HCl) 50 Mg Tab 50 Mg PO Q6H PRN Active Ordered Medications Current Medications Medications (Trade) Dose Ordered Sig/Eliot Route Start Time Stop Time Status Last Admin Sodium Chloride 1,000 ml @ 100 mls/hr Q10H IV 12/12/17 05:48 12/12/17 06:33 (NS Flush) 2 ml UNSCH PRN IV FLUSH 12/12/17 06:00 (NS Flush) 2 ml BID IV FLUSH 12/12/17 09:00 (Tylenol) 650 mg Q4H PRN PO 12/12/17 06:00 (Zofran Inj) 4 mg Q6H PRN IVP 12/12/17 06:00 (Narcan Inj) 0.4 mg UNSCH PRN IV PUSH 12/12/17 06:00 (Lillian-Colace) 1 tab BID PO 12/12/17 09:00 12/12/17 08:58 (Milk Of Magnesia Liq) 30 ml Q12H PRN PO 12/12/17 06:00 (Senokot) 17.2 mg Q12H PRN PO 12/12/17 06:00 (Dulcolax Supp) 10 mg DAILY PRN RECTAL 12/12/17 06:00 (Lactulose Liq) 30 ml DAILY PRN PO 12/12/17 06:00 Piperacillin Sod/ Tazobactam Sod 50 ml @ 100 mls/hr Q6H IV 12/12/17 06:00 12/12/17 06:49 (Morphine Inj) 2 mg Q4H PRN IV 12/12/17 11:45 12/12/17 12:17 ([place] 5-325 Mg) 1 tab Q6H PRN PO 12/12/17 11:45 ([place] 5-325 Mg) 2 tab Q6H PRN PO 12/12/17 11:45 Family History No h/o DM or CAD Social History Negative for alcohol, tobacco or drugs. Physical Exam Vital Signs Vital Signs Date Time Temp Pulse Resp B/P (MAP) Pulse Ox O2 Delivery O2 Flow Rate FiO2 12/12/17 12:31 16 12/12/17 08:00 98.8 88 18 140/72 (94) 93 12/12/17 06:38 101.3 102 22 135/60 (85) 95 12/12/17 06:20 90 16 95 Nasal Cannula 2.00 12/12/17 05:42 89 18 119/74 (89) 95 Nasal Cannula 2.00 12/12/17 04:39 90 18 133/69 (90) 95 Nasal Cannula 2.00 12/12/17 03:48 92 18 136/70 (92) 95 Nasal Cannula 2.00 12/12/17 02:32 99 16 98 Room Air 12/12/17 02:10 95 Room Air 12/12/17 02:10 95 Room Air 12/12/17 01:33 98.2 108 18 150/78 (102) 95 Physical Exam GENERAL: Well-developed well-nourished. Appears mildly uncomfortable secondary to abdominal discomfort. NECK: No carotid bruits. No JVD. CARDIOVASCULAR: Regular rate and rhythm. No murmur appreciated. RESPIRATORY: No accessory muscle use. Clear to auscultation. Breath sounds equal bilaterally. MUSCULOSKELETAL: No clubbing or cyanosis. No edema. NEUROLOGICAL: Somnolent. Normal speech. Laboratory Laboratory Tests Test 12/12/17 01:55 12/12/17 02:03 White Blood Count 26.0 Red Blood Count 4.30 Hemoglobin 13.3 Hematocrit 39.9 Mean Corpuscular Volume 92.7 Mean Corpuscular Hemoglobin 31.0 Mean Corpuscular Hemoglobin Concent 33.4 Red Cell Distribution Width 14.4 Platelet Count 226 Mean Platelet Volume 7.7 Neutrophils (%) (Auto) 86.6 Lymphocytes (%) (Auto) 3.6 Monocytes (%) (Auto) 6.7 Eosinophils (%) (Auto) 0.1 Basophils (%) (Auto) 3.0 Neutrophils # (Auto) 22.6 Lymphocytes # (Auto) 0.9 Monocytes # (Auto) 1.7 Eosinophils # (Auto) 0.0 Basophils # (Auto) 0.8 CBC Comment AUTO DIFF Differential Total Cells Counted 100 Neutrophils % (Manual) 76 Band Neutrophils % 12 Lymphocytes % 6 Monocytes % 6 Neutrophils # (Manual) 22.9 Differential Comment FINAL DIFF MANUAL Platelet Estimate NORMAL Platelet Morphology Comment NORMAL Red Cell Morphology Comment NORMAL Blood Urea Nitrogen 35 Creatinine 1.50 Random Glucose 137 Total Protein 7.5 Albumin 3.3 Calcium Level 8.9 Alkaline Phosphatase 52 Aspartate Amino Transf (AST/SGOT) 16 Alanine Aminotransferase (ALT/SGPT) 18 Total Bilirubin 0.3 Sodium Level 141 Potassium Level 3.6 Chloride Level 102 Carbon Dioxide Level 30.1 Anion Gap 9 Estimat Glomerular Filtration Rate 46 Total Creatine Kinase 136 Creatine Kinase MB 3.2 Troponin I LESS THAN 0.02 B-Type Natriuretic Peptide 131 Lipase 143 Urine Color YELLOW Urine Turbidity CLEAR Urine pH 8.5 Urine Specific [place] 1.017 Urine Protein NEG Urine Glucose (UA) NEG Urine Ketones TRACE Urine Occult Blood NEG Urine Nitrite NEG Urine Bilirubin NEG Urine Leukocyte Esterase TRACE Urine RBC 0-3 Urine WBC 6-8 Urine Squamous Epithelial Cells 0-5 Urine Bacteria NONE Microscopic Urinalysis Comment CULT NOT INDICATED Result Diagram: 12/12/17 0155 12/12/17 0155 Imaging Last Impressions Abdomen/Pelvis CT 12/12/17 0334 Signed Impressions: Service Date/Time: Tuesday, December 12, 2017 04:07 - CONCLUSION: 1. Cholelithiasis and with CT findings of concern for early or mild acute cholecystitis in the proper clinical setting. No duct stone or obstruction. 2. No other acute abnormalities are demonstrated. Ventral hernia containing transverse colon but without evidence of obstruction or strangulation. Aortofemoral bypass changes and appears patent. Iain Barnett MD Chest X-Ray 12/12/17 0141 Signed Impressions: Service Date/Time: Tuesday, December 12, 2017 02:06 - CONCLUSION: No evidence of acute cardiopulmonary disease. Resolved bibasilar consolidation.. Iain Barnett MD Assessment and Plan Assessment and Plan 72-year-old male with acute cholecystitis. We are consulted for for cardiac clearance prior to surgery. Coronary artery disease: Cardiac catheterization 11/06 as above. Patient reports a history of recent coronary stenting, unknown details. We'll need to obtain records. Continue Plavix for now. Atrial fibrillation: Hold Eliquis for now prior to surgery. Cardio myopathy/chronic systolic CHF: Echocardiogram last month showed EF 25-30 %, mild to mod MR. Currently appears compensated, caution with IVF. Continue lisinopril and carvedilol as BP allows. Acute cholecystitis: Management per primary team and general surgery. Shaan Sosa Dec 12, 2017 13:11
[2017-12-12 14:24] LABS: LACTIC ACID SEPSIS PROTOCOL 2.2 mmol/L (0.4-2.0)
--- NOTE | 2017-12-12 14:41 | EKG ---
Date Performed: 12/12/2017 Time Performed: 01:48:00 PTAGE: 72 years EKG: SINUS TACHYCARDIA MARKED LEFT AXIS DEVIATION LEFT BUNDLE BRANCH BLOCK ABNORMAL ECG PREVIOUS TRACING : 12/01/2017 05.41 Since the prior tracing, there has been no significant pina DOCTOR: Nicol Zuniga Interpretating Date/Time 12/12/2017 14:36:59
--- NOTE | 2017-12-12 16:14 | PD.CONS ---
cc: Sergio Martinez MD [facility] Service General Surgery Consult Requested By Dr. Bernstein Reason for Consult Acute cholecystitis Primary Care Physician Unknown History of Present Illness This is a 72 year old male with a past medical history of anxiety, depression, CHF, extensive cardiac history, hypertension, neuropathy and bipolar disease who presents to the ED with complaints of sudden RUQ pain that began Friday at 4PM after eating a hamburger for lunch. He reports associated nausea without vomiting. He denies any sick contacts. He denies any recent travel. He reports that he had cardiac stents place "a few weeks ago" but knows no other details. He does not have a local Stop Attacher here as he just relocated to the [facility] from [facility]. His Primary Care Provider is a female physician at [facility] but unsure of her name. A CT abdomen pelvis was obtained which shows cholelithiasis and concerns for early acute cholecystitis. The patient does have an elevated WBC of 26,000. The patient's liver enzymes are normal. A General Surgery consultation has been requested. Review of Systems Constitutional: DENIES: Fatigue, Change in appetite Endocrine: DENIES: Polydipsia, Polyuria, Polyphagia Eyes: DENIES: Diplopia, Eye inflammation Ears, nose, mouth, throat: DENIES: Hearing loss, Vertigo Respiratory: DENIES: Cough, Snoring Cardiovascular: DENIES: Chest pain, Palpitations Gastrointestinal: COMPLAINS OF: Abdominal pain, Nausea, DENIES: Constipation, Diarrhea, Vomiting Genitourinary: DENIES: Urgency Musculoskeletal: DENIES: Joint pain Integumentary: DENIES: Abnormal pigmentation Hematologic/lymphatic: DENIES: Bruising Immunologic/allergic: DENIES: Eczema Neurologic: DENIES: Abnormal gait, Headache Psychiatric: DENIES: Confusion, Mood changes, Depression Past Family Social History Past Medical History Cardiac stents Anxiety Depression CHF Hypertension Bipolar Neuropathy Past Surgical History CABG x 3 about 10 years ago----incision was done through abdomen Cardiac stents placed "A few weeks ago" Reported Medications Flomax Eliquis Plavix Amiodarone Atorvastatin Simvastatin Coreg Lisinopril Ibuprofen Tramadol Divalproex Gabapentin Potassium replacement Lasix Multivitamin Allergies: Coded Allergies: No Known Allergies (Verified Allergy, Unknown, 12/12/17) Active Ordered Medications Current Medications Medications (Trade) Dose Ordered Sig/Eliot Route Start Time Stop Time Status Last Admin Sodium Chloride 1,000 ml @ 70 mls/hr [id number] IV 12/12/17 05:48 12/12/17 06:33 (NS Flush) 2 ml UNSCH PRN IV FLUSH 12/12/17 06:00 (NS Flush) 2 ml BID IV FLUSH 12/12/17 09:00 (Tylenol) 650 mg Q4H PRN PO 12/12/17 06:00 (Zofran Inj) 4 mg Q6H PRN IVP 12/12/17 06:00 (Narcan Inj) 0.4 mg UNSCH PRN IV PUSH 12/12/17 06:00 (Lillian-Colace) 1 tab BID PO 12/12/17 09:00 12/12/17 08:58 (Milk Of Magnesia Liq) 30 ml Q12H PRN PO 12/12/17 06:00 (Senokot) 17.2 mg Q12H PRN PO 12/12/17 06:00 (Dulcolax Supp) 10 mg DAILY PRN RECTAL 12/12/17 06:00 (Lactulose Liq) 30 ml DAILY PRN PO 12/12/17 06:00 Piperacillin Sod/ Tazobactam Sod 50 ml @ 100 mls/hr Q6H IV 12/12/17 06:00 12/12/17 12:59 (Morphine Inj) 2 mg Q4H PRN IV 12/12/17 11:45 12/12/17 12:17 ([place] 5-325 Mg) 1 tab Q6H PRN PO 12/12/17 11:45 ([place] 5-325 Mg) 2 tab Q6H PRN PO 12/12/17 11:45 Family History Noncontributory Social History Denies tobacco use Denies ETOH use Denies illicit drug use Just recently moved to the [facility]. Lives with roommates. Drives a Moped. Physical Exam Vital Signs Vital Signs Date Time Temp Pulse Resp B/P (MAP) Pulse Ox O2 Delivery O2 Flow Rate FiO2 12/12/17 12:31 16 12/12/17 12:00 99.7 84 20 142/74 (96) 95 12/12/17 08:00 98.8 88 18 140/72 (94) 93 12/12/17 06:38 101.3 102 22 135/60 (85) 95 12/12/17 06:20 90 16 95 Nasal Cannula 2.00 12/12/17 05:42 89 18 119/74 (89) 95 Nasal Cannula 2.00 12/12/17 04:39 90 18 133/69 (90) 95 Nasal Cannula 2.00 12/12/17 03:48 92 18 136/70 (92) 95 Nasal Cannula 2.00 12/12/17 02:32 99 16 98 Room Air 12/12/17 02:10 95 Room Air 12/12/17 02:10 95 Room Air 12/12/17 01:33 98.2 108 18 150/78 (102) 95 Physical Exam GENERAL: 72 year old male resting in bed who is thirsty. SKIN: Warm and dry. HEAD: Atraumatic. Normocephalic. EYES: Pupils equal and round. No scleral icterus. No injection or drainage. ENT: No nasal bleeding or discharge. Mucous membranes pink and moist. NECK: Trachea midline. CARDIOVASCULAR: Regular rate and rhythm. RESPIRATORY: No accessory muscle use. Clear to auscultation. Breath sounds equal bilaterally. GASTROINTESTINAL: Abdomen soft, obese. Mildly distended. RUQ tenderness with palpation. Large midline incision--well healed. MUSCULOSKELETAL: Extremities without clubbing, cyanosis, or edema. No obvious deformities. NEUROLOGICAL: Awake and alert. No obvious cranial nerve deficits. Motor grossly within normal limits. Five out of 5 muscle strength in the arms and legs. Normal speech. PSYCHIATRIC: Appropriate mood and affect; insight and judgment normal. Laboratory Laboratory Tests Test 12/12/17 01:55 12/12/17 02:03 12/12/17 14:00 White Blood Count 26.0 Red Blood Count 4.30 Hemoglobin 13.3 Hematocrit 39.9 Mean Corpuscular Volume 92.7 Mean Corpuscular Hemoglobin 31.0 Mean Corpuscular Hemoglobin Concent 33.4 Red Cell Distribution Width 14.4 Platelet Count 226 Mean Platelet Volume 7.7 Neutrophils (%) (Auto) 86.6 Lymphocytes (%) (Auto) 3.6 Monocytes (%) (Auto) 6.7 Eosinophils (%) (Auto) 0.1 Basophils (%) (Auto) 3.0 Neutrophils # (Auto) 22.6 Lymphocytes # (Auto) 0.9 Monocytes # (Auto) 1.7 Eosinophils # (Auto) 0.0 Basophils # (Auto) 0.8 CBC Comment AUTO DIFF Differential Total Cells Counted 100 Neutrophils % (Manual) 76 Band Neutrophils % 12 Lymphocytes % 6 Monocytes % 6 Neutrophils # (Manual) 22.9 Differential Comment FINAL DIFF MANUAL Platelet Estimate NORMAL Platelet Morphology Comment NORMAL Red Cell Morphology Comment NORMAL Blood Urea Nitrogen 35 Creatinine 1.50 Random Glucose 137 Total Protein 7.5 Albumin 3.3 Calcium Level 8.9 Alkaline Phosphatase 52 Aspartate Amino Transf (AST/SGOT) 16 Alanine Aminotransferase (ALT/SGPT) 18 Total Bilirubin 0.3 Sodium Level 141 Potassium Level 3.6 Chloride Level 102 Carbon Dioxide Level 30.1 Anion Gap 9 Estimat Glomerular Filtration Rate 46 Total Creatine Kinase 136 Creatine Kinase MB 3.2 Troponin I LESS THAN 0.02 B-Type Natriuretic Peptide 131 Lipase 143 Urine Color YELLOW Urine Turbidity CLEAR Urine pH 8.5 Urine Specific [place] 1.017 Urine Protein NEG Urine Glucose (UA) NEG Urine Ketones TRACE Urine Occult Blood NEG Urine Nitrite NEG Urine Bilirubin NEG Urine Leukocyte Esterase TRACE Urine RBC 0-3 Urine WBC 6-8 Urine Squamous Epithelial Cells 0-5 Urine Bacteria NONE Microscopic Urinalysis Comment CULT NOT INDICATED Lactic Acid Level 2.2 Date/Time Source Procedure Growth Status 12/12/17 14:00 Blood Peripheral Aerobic Blood Culture Pending Received 12/12/17 14:00 Blood Peripheral Anaerobic Blood Culture Pending Received Result Diagram: 12/12/17 0155 12/12/17 0155 Imaging Last 48 hours Impressions Abdomen/Pelvis CT 12/12/17 0334 Signed Impressions: Service Date/Time: Tuesday, December 12, 2017 04:07 - CONCLUSION: 1. Cholelithiasis and with CT findings of concern for early or mild acute cholecystitis in the proper clinical setting. No duct stone or obstruction. 2. No other acute abnormalities are demonstrated. Ventral hernia containing transverse colon but without evidence of obstruction or strangulation. Aortofemoral bypass changes and appears patent. Iain Barnett MD Chest X-Ray 12/12/17 0141 Signed Impressions: Service Date/Time: Tuesday, December 12, 2017 02:06 - CONCLUSION: No evidence of acute cardiopulmonary disease. Resolved bibasilar consolidation.. Iain Barntet MD Assessment and Plan Assessment and Plan 72 year old male with extensive cardiac history; leukocytosis; RUQ tenderness; CT findings suggest acute cholecystitis -Clear liquids -Cardiology consult for surgical clearance; will need to continue anticoagulation -Will attempt cholecystostomy tube placement -Continue Zosyn -Monitor WBC -Working on getting records from [facility] to better clarify when cardiac stents were placed -Patient is a poor surgical candidate -Discussed with Dr. Monaco and Maureen EMMANUEL -Thank you for this consult Attending Note - Dr. Martinez Patient has acute RUQ tenderness with guarding; elevated WBC's (26K) with left shift Discussed with IR (Drs. Ontiveros and Rosamaria); will need to transfer to [facility] to undergo Cholecystostomy tube placement tomorrow; it is still hazardous, as Eliquis not to be stopped according to cardiology. We will standby in case there are bleeding issues; there are only less hazardous options; all are fraught with complication risks with bleeding. He is a poor surgical candidate at this time, unless anticoagulation can be held for at least 24 and preferably longer time before surgery. Discussed with patient, who vocalizes understanding. The exam, history, and the medical decision-making described in the above note were completed with the assistance of the mid-level provider. I reviewed and agree with the findings presented. I attest that I had a [id number] encounter with the patient on the same day, and personally performed and documented my assessment and findings in the medical record. Discussed Condition With Mag Ocampo Dr./First Víctor EMMANUEL Dec 12, 2017 16:14 Sergio Martinez MD Dec 12, 2017 21:29
[2017-12-12] MEDS: ACETAMINOPHEN/HYDROcodone 325 MG/5 MG TAB PO PRN ×2 (16:29→21:52)
--- NOTE | 2017-12-12 19:08 | RADRPT ---
EXAM DATE/TIME: 12/12/2017 18:42 [facility] COMPARISON: No previous studies available for comparison. INDICATIONS : Altered mental status. Headache. RADIATION DOSE: 60.51 CTDIvol (mGy) MEDICAL HISTORY : Cardiovascular disease. Hypertension. Anticoagulant therapy. SURGICAL HISTORY : CABG Coronary artery stent.Pacemaker. ENCOUNTER: Initial ACUITY: 1 day PAIN SCALE: 4/10 LOCATION: cranial TECHNIQUE: Multiple contiguous axial images were obtained of the head. Using automated exposure control and adj ustment of the mA and/or kV according to patient size, radiation dose was kept as low as reasonably a chievable to obtain optimal diagnostic quality images. DICOM format image data is available electro nically for review and comparison. FINDINGS: CEREBRUM: Mild diffuse cerebral volume loss. Mild ventriculomegaly slightly out of proportion to degree of atro phy. Mild periventricular white matter hypodensities. No evidence of midline shift, mass lesion, hemo rrhage or acute infarction. No extra-axial fluid collections are seen. POSTERIOR FOSSA: The cerebellum and brainstem are intact. The 4th ventricle is midline. The cerebellopontine angle i s unremarkable. EXTRACRANIAL: The visualized portion of the orbits is intact. SKULL: The calvaria is intact. No evidence of skull fracture. CONCLUSION: 1. Senescent changes with mild small vessel ischemic periventricular white matter demyelination. 2. Mild ventriculomegaly which may be slightly out of portion to the degree of atrophy. Clinical saúl elation for normal pressure hydrocephalus is recommended. Dino Coyne MD on December 12, 2017 at 19:05 Board Certified Radiologist. This report was verified electronically.
[2017-12-13] VITALS (17 sets, daily range): BP systolic 109–170; BP diastolic 58–85; PULSE 54–130; RESP 16–22; TEMP 96.5–99.3; O2SAT 80–100
[2017-12-13] MEDS: MORPHINE SULFATE 2 MG/ML INJ IV PRN ×3 (00:40→09:48)
[2017-12-13] MEDS: SODIUM CHLOR 0.9% 1000 ML INJ 1,000 ML IV SCH (01:44)
[2017-12-13] MEDS: ACETAMINOPHEN/HYDROcodone 325 MG/5 MG TAB PO PRN (04:09)
[2017-12-13] MEDS: PIPERACIL-TAZO 3.375 GM PREMIX 50 ML IV SCH ×4 (05:20→23:26)
--- NOTE | 2017-12-13 07:53 | PD.CARD.PN ---
Subjective Subjective Remarks continues to have RUQ pain. no chest pain or sob. (Hali Rubalcava) Objective Medications Current Medications Medications (Trade) Dose Ordered Sig/Eliot Route Start Time Stop Time Status Last Admin Sodium Chloride 1,000 ml @ 70 mls/hr [id number] IV 12/12/17 05:48 12/13/17 01:44 (NS Flush) 2 ml UNSCH PRN IV FLUSH 12/12/17 06:00 (NS Flush) 2 ml BID IV FLUSH 12/12/17 09:00 (Tylenol) 650 mg Q4H PRN PO 12/12/17 06:00 (Zofran Inj) 4 mg Q6H PRN IVP 12/12/17 06:00 (Narcan Inj) 0.4 mg UNSCH PRN IV PUSH 12/12/17 06:00 (Lillian-Colace) 1 tab BID PO 12/12/17 09:00 12/12/17 19:56 (Milk Of Magnesia Liq) 30 ml Q12H PRN PO 12/12/17 06:00 (Senokot) 17.2 mg Q12H PRN PO 12/12/17 06:00 (Dulcolax Supp) 10 mg DAILY PRN RECTAL 12/12/17 06:00 (Lactulose Liq) 30 ml DAILY PRN PO 12/12/17 06:00 Piperacillin Sod/ Tazobactam Sod 50 ml @ 100 mls/hr Q6H IV 12/12/17 06:00 12/13/17 05:20 (Morphine Inj) 2 mg Q4H PRN IV 12/12/17 11:45 12/13/17 05:20 ([place] 5-325 Mg) 1 tab Q6H PRN PO 12/12/17 11:45 ([place] 5-325 Mg) 2 tab Q6H PRN PO 12/12/17 11:45 12/13/17 04:09 Vital Signs / I&O Vital Signs Date Time Temp Pulse Resp B/P (MAP) Pulse Ox O2 Delivery O2 Flow Rate FiO2 12/13/17 05:09 22 12/13/17 04:00 80 12/13/17 04:00 97.9 95 16 154/73 (100) 95 12/13/17 01:30 75 12/13/17 00:00 99.2 80 20 109/61 (77) 96 12/13/17 00:00 97.8 71 16 121/58 (79) 98 12/12/17 20:00 97.8 73 20 132/60 (84) 95 12/12/17 16:00 98.5 80 20 141/76 (97) 94 12/12/17 12:31 16 12/12/17 12:00 99.7 84 20 142/74 (96) 95 12/12/17 08:00 98.8 88 18 140/72 (94) 93 I/O 12/12/17 12/12/17 12/12/17 12/13/17 12/13/17 12/13/17 07:00 15:00 23:00 07:00 15:00 23:00 Intake Total 1000 ml 650 ml 1120 ml 327 ml Output Total 850 ml 500 ml Balance 1000 ml -200 ml 1120 ml -173 ml Intake Oral 600 ml 120 ml 0 ml IV Total 1000 ml 50 ml 1000 ml 327 ml Output Urine Total 850 ml 500 ml Bladder Scan Volume Amount 214 ml 429 ml # Voids 2 # Bowel Movements 0 0 Physical Exam GENERAL: SKIN: Warm and dry. HEAD: Atraumatic. Normocephalic. EYES: Pupils equal and round. No scleral icterus. No injection or drainage. ENT: No nasal bleeding or discharge. NECK: Trachea midline. No JVD. CARDIOVASCULAR: Regular rate and rhythm. RESPIRATORY: No accessory muscle use. Clear to auscultation. Breath sounds equal bilaterally. GASTROINTESTINAL: Abdomen soft, RUQ tenderness to palpations MUSCULOSKELETAL: Extremities without clubbing, cyanosis, or edema. No obvious deformities. NEUROLOGICAL: Awake and alert. No obvious cranial nerve deficits. Normal speech. PSYCHIATRIC: Appropriate mood and affect; insight and judgment normal. Laboratory Laboratory Tests Test 12/12/17 14:00 12/12/17 16:50 Lactic Acid Level 2.2 mmol/L 1.1 mmol/L (Hali Rubalcava) Assessment and Plan Problem List: (1) CAD (coronary artery disease) ICD Codes: I25.10 - Atherosclerotic heart disease of zuni coronary artery without angina pectoris (2) HTN (hypertension) ICD Codes: I10 - Essential (primary) hypertension (3) Acute on chronic systolic (congestive) heart failure ICD Codes: I50.23 - Acute on chronic systolic (congestive) heart failure Assessment and Plan 72 yo M with CAD, CABG, afib, HTN and HLD who presents with acute RUQ abdominal pain and found to have acute cholecystitis. cardiac clearance for surgery needed. CAD- history of CABG, patient states he had a stent placed about 4 months ago in [facility] has been on Plavix, attempting to get records. no chest pain catheterization is Oct [address] Hoff shows patent LUI-LAD graft, and 2 occluded vein grafts (SVG-RCA and SVG-circ), he has been medically managed. CM- Oct 2016 echo EF 25-30%, mild-mod MR afib- currently in NSR, has been on Eliquis which is being held acute cholecystitis- due to have cholecystostomy tube placed today (Hali Rubalcava) Assessment and Plan clear from cardio standpoint for surgery optimized medically intermediate to high risk given underlying heart disease minimize intravenous hydration perioperatively call with further questions will sign off (Vipul Lagos MD) Hali Rubalcava Dec 13, 2017 07:53 Vipul Lagos MD Dec 13, 2017 11:37
[2017-12-13] MEDS: DOCUSATE SODIUM 50 MG/SENNA 8.6 MG TAB PO SCH ×2 (07:56→20:24)
[2017-12-13] MEDS: SODIUM CHLORIDE 0.9% FLUSH 10 ML FLUSH IV FLUSH SCH ×2 (07:56→20:24)
--- NOTE | 2017-12-13 10:40 | HHI.PR ---
Subjective Subjective Notes Patient feels like he cannot catch his breath. He is on nasal cannula oxygen and his oxygen saturations are greater than 90%. He complains of pain in the right upper quadrant. Objective Vitals/I&O Vital Signs Date Time Temp Pulse Resp B/P (MAP) Pulse Ox O2 Delivery O2 Flow Rate FiO2 12/13/17 08:00 96.5 78 17 157/67 (97) 97 12/12/17 06:20 Nasal Cannula 2.00 Labs Laboratory Tests Test 12/12/17 14:00 12/12/17 16:50 Lactic Acid Level 2.2 1.1 Date/Time Source Procedure Growth Status 12/12/17 14:00 Blood Peripheral Aerobic Blood Culture Pending Received 12/12/17 14:00 Blood Peripheral Anaerobic Blood Culture Pending Received Radiology Last 48 hours Impressions Abdomen/Pelvis CT 12/12/17 0334 Signed Impressions: Service Date/Time: Tuesday, December 12, 2017 04:07 - CONCLUSION: 1. Cholelithiasis and with CT findings of concern for early or mild acute cholecystitis in the proper clinical setting. No duct stone or obstruction. 2. No other acute abnormalities are demonstrated. Ventral hernia containing transverse colon but without evidence of obstruction or strangulation. Aortofemoral bypass changes and appears patent. Iain Barnett MD Chest X-Ray 12/12/17 0141 Signed Impressions: Service Date/Time: Tuesday, December 12, 2017 02:06 - CONCLUSION: No evidence of acute cardiopulmonary disease. Resolved bibasilar consolidation.. Iain Barnett MD Lungs: Clear Abdomen: Other (Mildly protuberant and distended. Reducible upper abdominal hernia. Mildly tender in right upper quadrant without peritonitis rebound or guarding.) Extremities: No edema A/P Assessment and Plan Calculus cholecystitis in a high risk patient for surgery due to use of anticoagulants for cardiac stents placed in the last 3-4 months. 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 I discussed at length with the patient the bedside nurse and Dr. Iain Ontiveros the interventional radiology radiologist on the phone. The Dr. Ontiveros indicates that the risk of percutaneous cholecystostomy tube placement decreases each day the patient has been off of his Eliquis. If the patient is not septic he prefers to wait till tomorrow to place cholecystostomy tube. I again discussed this in detail with the patient who understands the reasoning behind decreasing the risk of a bleeding complication, but is not happy with his situation. At this time we will continue intravenous antibiotic therapy and support. I will add albuterol nebulizer treatments to try and improve his ventilatory status. Aneudy Espinoza MD Dec 13, 2017 10:40
[2017-12-13] MEDS ORDERED: RESP: ALBUTEROL 1.25 MG/3 ML NEB (SCH) NEB (10:45)
[2017-12-13] MEDS ORDERED: FUROSEMIDE 40 MG/4 ML VIAL IV PUSH ONE (11:15)
[2017-12-13] MEDS ORDERED: LORazepam 2 MG/ML VIAL IV PUSH ONE (11:30)
[2017-12-13] MEDS ORDERED: ETOMIDATE 40 MG/20 ML VIAL ONE (11:31)
[2017-12-13] MEDS ORDERED: MIDAZOLAM HCL 5 MG/ML VIAL (1 ML) ONE (11:32)
--- NOTE | 2017-12-13 11:44 | RADRPT ---
EXAM DATE/TIME: 12/13/2017 11:15 [facility] COMPARISON: CHEST SINGLE AP, December 12, 2017, 2:06. INDICATIONS : Shortness of breath. MEDICAL HISTORY : Cardiovascular disease. SURGICAL HISTORY : Coronary artery stent. CABG. Pacemaker ENCOUNTER: Initial ACUITY: 1 day PAIN SCORE: 0/10 LOCATION: Bilateral chest FINDINGS: Compared to the prior exam there has been interval development of diffuse bilateral interstitial erik a suggestive of pulmonary edema. The heart size is stable. There is evidence of previous cardiothorac ic surgery. There is a left pacemaker in place. There is no pneumothorax. No definite pleural effusio ns. The bony structures are stable. CONCLUSION: Interval development of pulmonary edema. Gene Ferraro MD on December 13, 2017 at 11:41 Board Certified Radiologist. This report was verified electronically.
--- NOTE | 2017-12-13 11:50 | PD.PROCEDR ---
Procedure Note Procedure Intubation for acute hypoxemic Acute respiratory failure INTUBATION: The patient was put in optimal position for the procedure. Rapid sequence intubation was initiated by me using 20 milligrams of etomidate IV and 5 milligrams of Versed IV, Rocuronium 50 mg IV x1. DL wih Mac 4 blade Grade 1 view single attempt. The patient was intubated with a 8.0 cuffed endotracheal tube. Tube placement was confirmed by visualization of the tube and balloon passing through the cords, capnometry and subsequent chest x-ray. Breath sounds were equal and well aerated bilaterally postintubation. No breath sounds over stomach. Patient tolerated procedure well. Tameka Timmons MD Dec 13, 2017 11:50
[2017-12-13] MEDS ORDERED: PROPOFOL 500 MG/50 ML INJ 50 ML ONE (11:52)
[2017-12-13] MEDS ORDERED: methylPREDNISolone SOD SUCC 125 MG/2 ML VIAL IV PUSH ONE (12:00)
--- NOTE | 2017-12-13 12:11 | HHI.PR ---
Subjective Remarks Call as needed since patient complaining of shortness of breath. The patient complained of shortness of breath, descending into the mid 80s Patient denied chest pain Objective Vitals Vital Signs Date Time Temp Pulse Resp B/P (MAP) Pulse Ox O2 Delivery O2 Flow Rate FiO2 12/13/17 11:30 130 22 170/85 (113) 90 12/13/17 08:00 96.5 78 17 157/67 (97) 97 12/13/17 05:09 22 12/13/17 04:00 80 12/13/17 04:00 97.9 95 16 154/73 (100) 95 12/13/17 01:30 75 12/13/17 00:00 99.2 80 20 109/61 (77) 96 12/13/17 00:00 97.8 71 16 121/58 (79) 98 12/12/17 20:00 97.8 73 20 132/60 (84) 95 12/12/17 16:00 98.5 80 20 141/76 (97) 94 12/12/17 12:31 16 12/12/17 12:00 99.7 84 20 142/74 (96) 95 I/O 12/12/17 12/12/17 12/12/17 12/13/17 12/13/17 12/13/17 07:00 15:00 23:00 07:00 15:00 23:00 Intake Total 1000 ml 650 ml 1120 ml 327 ml Output Total 850 ml 500 ml Balance 1000 ml -200 ml 1120 ml -173 ml Intake Oral 600 ml 120 ml 0 ml IV Total 1000 ml 50 ml 1000 ml 327 ml Output Urine Total 850 ml 500 ml Bladder Scan Volume Amount 214 ml 429 ml # Voids 2 # Bowel Movements 0 0 Result Diagram: 12/12/17 01512/12/17 015 Imaging Last Impressions Abdomen/Pelvis CT 12/12/17 0334 Signed Impressions: Service Date/Time: Tuesday, December 12, 2017 04:07 - CONCLUSION: 1. Cholelithiasis and with CT findings of concern for early or mild acute cholecystitis in the proper clinical setting. No duct stone or obstruction. 2. No other acute abnormalities are demonstrated. Ventral hernia containing transverse colon but without evidence of obstruction or strangulation. Aortofemoral bypass changes and appears patent. Iain Barnett MD Chest X-Ray 12/12/17 0141 Signed Impressions: Service Date/Time: Tuesday, December 12, 2017 02:06 - CONCLUSION: No evidence of acute cardiopulmonary disease. Resolved bibasilar consolidation.. Iain Barnett MD Head CT 12/12/17 0000 Signed Impressions: Service Date/Time: Tuesday, December 12, 2017 18:42 - CONCLUSION: 1. Senescent changes with mild small vessel ischemic periventricular white matter demyelination. 2. Mild ventriculomegaly which may be slightly out of portion to the degree of atrophy. Clinical correlation for normal pressure hydrocephalus is recommended. Dino Coyne MD Objective Remarks Awake and alert In severe respiratory distress There is decreased breath sounds in bilateral lung san, no wheezing, bilateral rales in bilateral lower lung san. Abdomen is soft, tender to palpation of right upper quadrant, no rebound tenderness, no guarding. No edema in bilateral extremities. Medications and IVs Current Medications Medications (Trade) Dose Ordered Sig/Eliot Route Start Time Stop Time Status Last Admin Sodium Chloride 1,000 ml @ 70 mls/hr [id number] IV 12/12/17 05:48 12/13/17 01:44 (NS Flush) 2 ml UNSCH PRN IV FLUSH 12/12/17 06:00 (NS Flush) 2 ml BID IV FLUSH 12/12/17 09:00 (Tylenol) 650 mg Q4H PRN PO 12/12/17 06:00 (Zofran Inj) 4 mg Q6H PRN IVP 12/12/17 06:00 (Narcan Inj) 0.4 mg UNSCH PRN IV PUSH 12/12/17 06:00 (Lillian-Colace) 1 tab BID PO 12/12/17 09:00 12/13/17 07:56 (Milk Of Magnesia Liq) 30 ml Q12H PRN PO 12/12/17 06:00 (Senokot) 17.2 mg Q12H PRN PO 12/12/17 06:00 (Dulcolax Supp) 10 mg DAILY PRN RECTAL 12/12/17 06:00 (Lactulose Liq) 30 ml DAILY PRN PO 12/12/17 06:00 Piperacillin Sod/ Tazobactam Sod 50 ml @ 100 mls/hr Q6H IV 2/23/18 06:00 12/13/17 05:20 (Morphine Inj) 2 mg Q4H PRN IV 12/12/17 11:45 12/13/17 09:48 (Bruce 5-325 Mg) 1 tab Q6H PRN PO 12/12/17 11:45 (Bruce 5-325 Mg) 2 tab Q6H PRN PO 12/12/17 11:45 12/13/17 04:09 (Albuterol Neb) 1.25 mg Q6HR NEB NEB 12/13/17 10:45 (SoluMEDROL INJ) 125 mg ONCE ONCE IV PUSH 12/13/17 12:00 12/13/17 12:01 12/13/17 11:12 (SoluMEDROL INJ) 40 mg Q6HR IV PUSH 12/13/17 18:00 A/P Problem List: (1) Acute cholecystitis ICD Code: K81.0 - Acute cholecystitis Status: Acute Plan: Patient evaluated by general surgery. CT abdomen and pelvis reviewed showed cholelithiasis concern for cholecystitis. Placed on clear liquid diet by general surgery, pain control provided with IV narcotics. Patient has history of CAD with cardiac stent placement on Plavix and atrial fibrillation on Eliquis, cardiology consulted for clearance for surgery. Cardiology evaluated patient, as per records Plavix continued. However Eliquis was not continued. (2) Acute respiratory failure ICD Code: J96.00 - Acute respiratory failure, unspecified whether with hypoxia or hypercapnia Plan: Patient became short of breath and hypoxemic into the mid 80s initially, rapidly declining, agitated. ABG, chest x-ray, EKG order stat. The patient was administered 40 mg of IV Lasix and 125 mg IV Solu-Medrol. Patient placed on nonrebreather mask however patient very agitated refusing to use it. X-ray reviewed by me showed pulmonary congestion and possible infiltrate in the right lower lung field. EKG showed a paced rhythm. ABG showed a pH of 7.34, PCO2 48 and PO2 59. Rapid response was activated and the patient was transferred emergently to the intensive care unit. I called Dr. Timmons prior to arriving to the unit so that they could be ready for intubation since patient's respiratory status was rapidly declining. Care was then handed to Dr. Timmons. (3) Acute on chronic systolic (congestive) heart failure ICD Code: I50.23 - Acute on chronic systolic (congestive) heart failure Plan: 2D echocardiogram performed on October 27, 2017 showed an ejection fraction of 25-30%. Chest x-ray shows pulmonary congestion bilaterally. Suspect pulmonary edema is possibly responsible for part of the acute respiratory decline. (4) CAD (coronary artery disease) ICD Code: I25.10 - Atherosclerotic heart disease of [place] coronary artery without angina pectoris Plan: Urology consulted. Cleared patient for surgical procedure. Patient has had history of CABG, as per medical records patient stated he had a stent placed about 4 months ago in [facility] and he has been on Plavix. Records attempted to be obtained by cardiology. Patient had a catheterization in October [address] Hoff which showed patent LUI to LAD graft to occluded vein grafts which were medically managed. (5) Atrial fibrillation ICD Code: I48.91 - Unspecified atrial fibrillation Plan: Currently in normal sinus rhythm, however patient very tachycardic at this moment. EKG obtained which showed sinus tachycardia Problem Qualifiers (1) Acute respiratory failure: Qualified Codes: J96.00 - Acute respiratory failure, unspecified whether with hypoxia or hypercapnia (2) CAD (coronary artery disease): (3) Atrial fibrillation: Qualified Codes: I48.0 - Paroxysmal atrial fibrillation Raúl Tapia MD Dec 13, 2017 12:11
--- NOTE | 2017-12-13 12:28 | RADRPT ---
EXAM DATE/TIME: 12/13/2017 00:00 [facility] COMPARISON : CT examination of the abdomen and pelvis with contrast December 12 2017. INDICATIONS : Patient with acute cholecystitis, evaluation for cholecystostomy tube. We received consultation for possible cholecystostomy tube placement on this patient late afternoon o n Friday, December 12. I reviewed the patient's chart and CT examination at that time. The patient do es have clinical and CT imaging findings consistent with the stated diagnosis and from a technical st andpoint would be an acceptable candidate for cholecystostomy tube placement, however the patient is currently on Eliquis and Plavix therapy for recent cardiac stent placement. I spoke with nurse sharla Cantrell at approximately 5: 30 PM. At that time, she was attempting to obtain prior records and advice from cardiology as to poss ibly holding the anticoagulation in anticipation of either cholecystostomy or cholecystectomy. I vahe cated to her that we would be willing to proceed on an emergent basis at any point in time so long as everyone is in agreement that the potential benefits outweigh the risks. Surgical consultation was s till pending at that time. I spoke with Dr. Sergio Martinez of surgical associates at approximately 8 PM at which time he had seen the patient and determined that his findings were consistent with acute cholecystitis however surgery would be very high risk given the anticoagulation. He believed that the patient would ultimately require cholecystostomy tube placement, however this was not something that needed to be done immediately based upon the patient's current clinical status. I spoke with Dr. Luan Espinoza at approximately 10:30 AM on December 13 and we again discussed the potential timing of ch olecystostomy tube placement. I indicated to him that it would be optimal for the Eliquis to have bee n held for 48 hours, especially in light of the patient remaining on Plavix, however that I would be willing to proceed at any point in time on an emergent basis should the patient's clinical status dic mccall. I spoke with Dr. Tameka Timmons at approximately 12 noon on today's date and reiterated my unavaila bility and willingness to proceed emergently should clinical circumstances dictate. Iain Ontiveros MD on December 13, 2017 at 12:08 Board Certified Radiologist. This report was verified electronically.
--- NOTE | 2017-12-13 12:43 | EKG ---
Date Performed: 12/13/2017 Time Performed: 11:12:06 PTAGE: 72 years EKG: SINUS TACHYCARDIA RIGHT AXIS DEVIATION LEFT BUNDLE BRANCH BLOCK ABNORMAL ECG PREVIOUS TRACING : 12/12/2017 01.48 No significant change from previous tracing noted. DOCTOR: Bryan Cheung Interpretating Date/Time 12/13/2017 12:41:35
--- NOTE | 2017-12-13 12:47 | RADRPT ---
EXAM DATE/TIME: 12/13/2017 12:18 [facility] COMPARISON: CHEST SINGLE AP, December 13, 2017, 11:15. INDICATIONS : Intubation. MEDICAL HISTORY : Cardiovascular disease. SURGICAL HISTORY : Coronary artery stent. CABG. Pacemaker. ENCOUNTER: Initial ACUITY: 1 day PAIN SCORE: Non-responsive. LOCATION: Bilateral chest FINDINGS: Status post placement of an endotracheal tube. The endotracheal tube appears to be in good position w ith the tip approximately 2 cm above the harrison. No pneumothorax. There are bilateral interstitial in filtrates characteristics of pulmonary edema. The heart size is stable. CONCLUSION: 1. ET tube in good position. 2. No pneumothorax. 3. Pulmonary edema. Gene Ferraro MD on December 13, 2017 at 12:44 Board Certified Radiologist. This report was verified electronically.
[2017-12-13] MEDS ORDERED: IOHEXOL 350 MG/ML 10 ML VIAL (for RAD DIAG) IVCONTRAST ONE (13:00)
[2017-12-13 13:06] LABS: ALBUMIN 2.7 GM/DL (3.4-5.0); ALT (GPT) 63 U/L (12-78); AST (GOT) 45 U/L (15-37); BICARBONATE 24.1 MEQ/L (21.0-32.0); CALCIUM 7.7 MG/DL (8.5-10.1); CHLORIDE 107 MEQ/L (98-107); CREATININE 1.29 MG/DL (0.60-1.30); GLOMERULAR FILTRATION RATE 55 ML/MIN (>89); GLUCOSE,RANDOM 141 MG/DL (74-106); SODIUM (NA) 142 MEQ/L (136-145)
[2017-12-13 13:08] LABS: ALKALINE PHOSPHATASE 64 U/L (45-117); TOTAL BILIRUBIN ADULT 0.9 MG/DL (0.2-1.0); TOTAL PROTEIN 6.9 GM/DL (6.4-8.2)
[2017-12-13 13:09] LABS: BLOOD UREA NITROGEN 19 MG/DL (7-18)
--- NOTE | 2017-12-13 13:12 | RADRPT ---
EXAM DATE/TIME: 12/13/2017 12:48 [facility] COMPARISON: No previous studies available for comparison. INDICATIONS : Respiratory distress. IV CONTRAST: 70 cc Omnipaque 350 (iohexol) IV RADIATION DOSE: 22.07 CTDIvol (mGy) MEDICAL HISTORY : Congestive hearrt failure. Hypertension. SURGICAL HISTORY : None. ENCOUNTER: Initial ACUITY: 1 day PAIN SCALE: Non-responsive LOCATION: Bilateral chest TECHNIQUE: Volumetric scanning of the chest was performed using a pulmonary embolism protocol MIP images were re constructed. Using automated exposure control and adjustment of the mA and/or kV according to patien t size, radiation dose was kept as low as reasonably achievable to obtain optimal diagnostic quality images. DICOM format image data is available electronically for review and comparison. Follow-up recommendations for detected pulmonary nodules are based at a minimum on nodule size and pa tient risk factors according to Fleischner Society Guidelines. FINDINGS: PULMONARY ARTERIES: No filling defects are seen in the pulmonary arteries through the segmental level. LUNGS: There is diffuse interstitial infiltrates bilaterally suggestive of edema. There are also scattered p arenchymal infiltrates noted in the anterior right upper lung, posterior right upper and right lower lung san bilaterally. There is some compressive atelectasis in the lung bases, left greater than r ight. PLEURAE: No pleural effusions. There is pleural thickening in both lung bases. MEDIASTINUM: There is good visualization of the great vessels of the middle mediastinum. No evidence of mediastin al or hilar adenopathy/mass. Evidence of previous cardiothoracic surgery. MUSCULOSKELETAL: Within normal limits for patient age. MISCELLANEOUS: The visualized upper abdominal organs demonstrate no acute abnormality. CONCLUSION: 1. No evidence of pulmonary embolism 2. Bilateral increased interstitial markings suggestive of pulmonary edema. 3. Scattered bilateral pulmonary infiltrates Gene Ferraro MD on December 13, 2017 at 13:08 Board Certified Radiologist. This report was verified electronically.
[2017-12-13] MEDS ORDERED: POTASSIUM PHOSPHATE MONOBASIC 500 MG TAB PO/TUBE PRN (13:30)
[2017-12-13] MEDS ORDERED: POTASSIUM CHLORIDE 25 MEQ EFFERVESCENT TAB PO PRN (13:30)
[2017-12-13] MEDS ORDERED: POTASSIUM CHLOR 20 MEQ PREMIX 100 ML IV PRN ×2 (13:30)
[2017-12-13] MEDS ORDERED: MAGNESIUM SULFATE INJ 4 GM in SODIUM CHLORIDE 0.9% INJ 92 ML IV PRN (13:30)
[2017-12-13] MEDS ORDERED: POTASSIUM PHOSPHATE MONOBASIC 500 MG TAB PO PRN (13:30)
[2017-12-13] MEDS ORDERED: MAGNESIUM SULFATE INJ 2 GM in SODIUM CHLORIDE 0.9% INJ 96 ML IV PRN (13:30)
[2017-12-13] MEDS ORDERED: POTASSIUM CHLOR 40 MEQ PREMIX 100 ML IV PRN ×2 (13:30)
[2017-12-13] MEDS ORDERED: SODIUM PHOSPHATE INJ 30 MMOL in SODIUM CHLOR 0.9% 250 ML INJ 240 ML IV PRN (13:30)
[2017-12-13] MEDS ORDERED: MAGNESIUM OXIDE 400 MG TAB PO PRN (13:30)
[2017-12-13] MEDS ORDERED: POTASSIUM PHOSPHATE INJ 30 MMOL in SODIUM CHLOR 0.9% 250 ML INJ 250 ML IV PRN (13:30)
[2017-12-13 13:50] LABS: PHOSPHORUS 3.7 MG/DL (2.5-4.9)
[2017-12-13] MEDS: AZITHROMYCIN INJ 500 MG in SODIUM CHLOR 0.9% 250 ML INJ 250 ML IV SCH (13:50)
--- NOTE | 2017-12-13 13:53 | PD.CONS ---
[facility] Service Critical Care Medicine Consult Requested By Dr. Avendano Reason for Consult Acute hypoxemic respiratory failure Respiratory extremis impending respiratory arrest Acute encephalopathy Severe sepsis CHF exacerbation/flash pulmonary edema Acute cholecystitis Pneumonia Primary Care Physician Unknown History of Present Illness This is a 72-year-old male patient with history of CAD with stent placement on Plavix, CHF, EF 25-30% on Echo done 10/27/17, atrial fibrillation on Eliquis, hyperlipidemia and HTN who presented to the ED with right upper quadrant abdominal pain. CT of the abdomen/pelvis showed cholelithiasis and acute Cholecystitis. Patient was admitted to [facility] service and was started on Zosyn. General surgery Dr. Martinez was consulted but due to chronic apixaban use for atrial fibrillation and Plavix, Dr. Martinez recommended cholecystomy tube placement with IR. He was scheduled to get cholecystostomy tube today A Halicat was called today as patient developed acute severe shortness of breath and hypoxia. Received IV Lasix 40 mg, IV Solumedrol and DuoNeb breathing treatment without improvement. He developed respiratory extremis, became unresponsive with severe hypoxemia and was emergently transferred to ICU. I met the patient immediately in the ICU, immediate bag and mask ventilation was started. Patient was hooked up to the ICU monitor which showed a oxygen saturation to be 78%. Patient was unresponsive with tachypnea rapid shallow breathing at about 40-45 breaths per minute. Oral airway was placed and with aggressive bag and mask ventilation saturation came up to 91%. Rapid sequence intubation initiated and placed patient on mechanical ventilation. Stat chest x -ray showed worsening pulmonary edema/CHF. Stat CT pulmonary angiogram did not show any evidence of PE but does show bilateral interstitial infiltrates and consolidation of predominantly left lower lobe. Schedule IV Lasix started, also started Aldactone. I discussed with Dr. Rahman from IR. Plan for cholecystostomy tube placement tomorrow. Hold apixaban continue Plavix. A cardiac cath by Dr. Hoff on 10/28/17 showed severe [place] coronary artery disease with patent LUI to LAD and known [place] vessel CAD. Continued medical management was recommended Review of Systems ROS Limitations: Clinical Condition, Unresponsive Past Family Social History Allergies: Coded Allergies: No Known Allergies (Verified Allergy, Unknown, 12/12/17) Past Medical History Coronary artery disease status post CABG Ischemic cardiomyopathy EF 25-30% Status post AICD Chronic atrial fibrillation on apixaban Hypertension Probable COPD Past Surgical History PCI with cardiac stent CABG AICD placement Reported Medications Potassium Chloride ER (Potassium Chloride) 20 Meq Tab 20 Meq PO DAILY Furosemide 20 Mg Tab 20 Mg PO BID Eliquis (Apixaban) 5 Mg Tab 5 Mg PO BID Lisinopril 10 Mg Tab 10 Mg PO DAILY Coreg (Carvedilol) 12.5 Mg Tab 12.5 Mg PO DAILY Atorvastatin (Atorvastatin Calcium) 40 Mg Tab 40 Mg PO HS Ibuprofen 400 Mg Tab 400 Mg PO Q8H PRN Multiple Vitamin 1 Tab 1 Tab PO DAILY Simvastatin 20 Mg Tab 20 Mg PO DAILY Divalproex DR (Divalproex Sodium) 500 Mg Tabdr 500 Mg PO TID Duloxetine DR (Duloxetine HCl) 60 Mg Capdr 60 Mg PO DAILY Tamsulosin (Tamsulosin HCl) 0.4 Mg Cap 0.8 Mg PO HS Plavix (Clopidogrel Bisulfate) 75 Mg Tab 75 Mg PO DAILY Amiodarone (Amiodarone HCl) 200 Mg Tab 200 Mg PO DAILY Gabapentin 300 Mg Cap 300 Mg PO TID Tramadol (Tramadol HCl) 50 Mg Tab 50 Mg PO Q6H PRN Active Ordered Medications Reviewed Family History Unable to obtain family history Social History Unable to obtain social history Physical Exam Vital Signs Vital Signs Date Time Temp Pulse Resp B/P (MAP) Pulse Ox O2 Delivery O2 Flow Rate FiO2 12/13/17 13:08 100 100 12/13/17 11:53 80 15.00 12/13/17 11:42 95 100 12/13/17 11:30 130 22 170/85 (113) 90 12/13/17 08:00 96.5 78 17 157/67 (97) 97 12/13/17 05:09 22 12/13/17 04:00 80 12/13/17 04:00 97.9 95 16 154/73 (100) 95 12/13/17 01:30 75 12/13/17 00:00 99.2 80 20 109/61 (77) 96 12/13/17 00:00 97.8 71 16 121/58 (79) 98 12/12/17 20:00 97.8 73 20 132/60 (84) 95 12/12/17 16:00 98.5 80 20 141/76 (97) 94 Physical Exam GENERAL: Unresponsive patient brought to the ICU as a highly CAD, and respiratory extremis breathing approximately 50 breaths per minute, oxygen saturation mid 70s, unresponsive SKIN: Warm and dry. HEAD: Normocephalic. Atraumatic. EYES: Pupils equal and round. ENT: Oral cavity is moist. Lower dentures in place NECK: Supple. CARDIOVASCULAR: Tachycardic in 130s. S1, S2 noted. No murmur appreciated. RESPIRATORY: Patient is in impending respiratory failure. Rapid shallow breathing with minimal air entry mild wheezing. Cyanotic GASTROINTESTINAL: Abdomen soft, round MUSCULOSKELETAL: Extremities without clubbing, cyanosis, or edema. NEUROLOGICAL: Nonresponsiveness patient not moving extremities. Severely tachypneic Laboratory Laboratory Tests Test 12/12/17 14:00 12/12/17 16:50 12/13/17 11:15 12/13/17 12:11 Lactic Acid Level 2.2 1.1 Blood Gas Puncture Site LT RADIAL RT RADIAL Blood Gas Patient Temperature 98.6 98.6 Blood Gas HCO3 25 22 Blood Gas Base Excess -0.1 -3.3 Blood Gas Oxygen Saturation 87 97 Arterial Blood pH 7.34 7.30 Arterial Blood Partial Pressure CO2 48 47 Arterial Blood Partial Pressure O2 59 182 Arterial Blood Oxygen Content 15.0 16.8 Arterial Blood Carboxyhemoglobin 1.2 0.8 Arterial Blood Methemoglobin 1.1 1.5 Blood Gas Hemoglobin 12.2 12.1 Oxygen Delivery Device NASAL CANNULA VENTILATOR Blood Gas Liter Flow 6 Blood Gas Ventilator Setting PRVC/AC Blood Gas Inspired Oxygen 100 Test 12/13/17 12:34 Blood Urea Nitrogen 19 Creatinine 1.29 Random Glucose 141 Total Protein 6.9 Albumin 2.7 Calcium Level 7.7 Alkaline Phosphatase 64 Aspartate Amino Transf (AST/SGOT) 45 Alanine Aminotransferase (ALT/SGPT) 63 Total Bilirubin 0.9 Sodium Level 142 Potassium Level 3.4 Chloride Level 107 Carbon Dioxide Level 24.1 Anion Gap 11 Estimat Glomerular Filtration Rate 55 Lactic Acid Level 3.4 Date/Time Source Procedure Growth Status 12/12/17 14:00 Blood Peripheral Aerobic Blood Culture - Preliminary NO GROWTH IN 1 DAY Resulted 12/12/17 14:00 Blood Peripheral Anaerobic Blood Culture - Preliminary NO GROWTH IN 1 DAY Resulted Result Diagram: 12/12/17 0155 12/13/17 1234 Imaging Chest x-ray shows pulmonary edema CT pulmonary angiogram negative for PE, bilateral interstitial infiltration consolidation predominantly left lower lobe Septic Shock Reassessment Septic shock perfusion: reassessment completed Assessment and Plan Assessment and Plan ASSESSMENT: Acute hypoxemic respiratory failure Respiratory extremis impending respiratory arrest Acute encephalopathy Severe sepsis CHF exacerbation/flash pulmonary edema Acute cholecystitis Pneumonia CAD status post CABG Ischemic cardiomyopathy status post AICD placement Chronic atrial fibrillation on apixaban Obesity Probable COPD PLAN: NEURO: -Propofol for sedation and ventilator synchrony -Daily sedation vacation starting in 24 hours -Continue divalproex and Neurontin, hold duloxetine RESP: -Emergently intubated and placed on mechanical ventilation -PRCV/AC RR 18 TV 550 iT 1 PEEP 10. FiO2 100% -ABG in 30 minutes, chest x-ray shows pulmonary edema -CT shows bilateral interstitial infiltrates and consolidation predominantly left lower lobe -Continue Zosyn, add azithromycin, send sputum culture -DuoNeb every 6 hours scheduled and as needed -Continue IV Solu-Medrol 40 mg every 6 hours CV: -Acute respiratory decompensation seems to be secondary to flash pulmonary edema -Received 40 mg IV Lasix, start IV Lasix 40 mg every 8 hours with potassium replacement -Add Aldactone 25 BID -Echo 10/27/17: EF 25-30% with WMA, Cath 10/28/17evere [place] CAD -Hold lisinopril while getting diuresis -Hold apixaban and Plavix in anticipation of cholecystostomy tube placement -Continue amiodarone, carvedilol, Lipitor GI: -Cholecystostomy drainage tube placement in 24 hours by IR -Continue broad-spectrum antibiotics see ID section -N.p.o. IV famotidine : -Monitor renal function closely. Place Cabrera catheter. -IV Lasix as above ID: -F/U blood cultures, send -IV vancomycin x 1 dose, continue Zosyn. Add azithromycin HEME: -Monitor CBC, CMP, coags -Hold apixaban in anticipation of invasive procedures ENDO: -Electrolyte replacement per protocol -Sliding scale insulin if needed PROPH: -Bilateral lower extremity SCDs. Lovenox 40 mg sq daily. IV Famotidine LINES: -Utilize peripheral IVs, central line if needed CC time 85 min, excluding procedures 72-year-old male with ischemic cardiac myopathy admitted for severe sepsis and acute cholecystitis presenting with respiratory extremis to the ICU. Emergently intubated currently with flash pulmonary edema. Severely hypoxic requiring high ventilator support. Continue with IV diuresis and IV antibiotics Code Status Full Discussed Condition With Drs. Tameka Sierra MD Dec 13, 2017 13:53
[2017-12-13] MEDS ORDERED: VANCOMYCIN INJ 1,250 MG in SODIUM CHLOR 0.9% 250 ML INJ 250 ML IV ONE (14:00)
[2017-12-13] MEDS: CLOPIDOGREL 75 MG TAB PO SCH (15:21)
[2017-12-13] MEDS: POTASSIUM CHLORIDE 25 MEQ EFFERVESCENT TAB PO SCH ×2 (15:21→20:24)
[2017-12-13] MEDS: ENOXAPARIN SODIUM 40 MG/0.4 ML SYRINGE SQ SCH (15:22)
[2017-12-13] MEDS: PROPOFOL 1000 MG/100 ML INJ 100 ML IV PRN (15:31)
[2017-12-13 15:41] LABS: HEMATOCRIT 36.3 % (39.0-51.0); HEMOGLOBIN 11.9 GM/DL (13.0-17.0); MEAN CELL VOLUME 95.6 FL (80.0-100.0); MEAN CORPUSCULAR HEMOGLOBIN 31.2 PG (27.0-34.0); MEAN CORPUSCULAR HGB CONC 32.7 % (32.0-36.0); PLATELET COUNT 173 TH/MM3 (150-450); RED CELL DISTRIBUTION WIDTH 15.4 % (11.6-17.2); WHITE BLOOD COUNT 33.5 TH/MM3 (4.0-11.0)
[2017-12-13] MEDS ORDERED: EPINEPHrine HCL (1:10,000) 1 MG/10 ML SYRINGE IV ONE (15:57)
[2017-12-13 16:43] LABS: BACTERIA, URINE RARE /hpf; BILIRUBIN, URINE NEG (NEG); BLOOD, URINE MOD (NEG); GLUCOSE,URINE NEG (NEG); HYALINE CAST, URINE 15 /lpf (RARE); KETONE, URINE NEG (NEG); MUCUS URINE FEW /lpf (OCC); NITRITE,URINE NEG (NEG); PH, URINE 5.5 (5.0-8.5); URINE COLOR YELLOW (YELLW/STRAW); URINE LEUKOCYTE ESTERASE NEG (NEG); WHITE BLOOD CELL CLUMPS RARE
[2017-12-13] MEDS: GABAPENTIN 300 MG CAP PO SCH (18:21)
[2017-12-13] MEDS: SPIRONOLACTONE 25 MG TAB PO SCH (18:21)
[2017-12-13] MEDS: DIVALPROEX DR 500 MG TABEC PO SCH (18:21)
[2017-12-13] MEDS: methylPREDNISolone SOD SUCC 40 MG/1 ML VIAL IV PUSH SCH ×2 (18:22→23:27)
[2017-12-13] MEDS: FAMOTIDINE 20 MG/2 ML VIAL IV PUSH SCH (18:22)
[2017-12-13] MEDS: CHLORHEXIDINE 0.12% (ORAL KIT) 15 ML CUP MT SCH (20:00)
[2017-12-13] MEDS: FUROSEMIDE 40 MG/4 ML VIAL IV PUSH SCH (20:24)
[2017-12-13] MEDS: ATORVASTATIN 40 MG TAB PO SCH (20:24)
[2017-12-14] VITALS (19 sets, daily range): BP systolic 125–170; BP diastolic 59–94; PULSE 40–59; RESP 18–22; TEMP 96.3–99.2; O2SAT 97–100
[2017-12-14] MEDS: PROPOFOL 1000 MG/100 ML INJ 100 ML IV PRN ×2 (00:44→08:50)
--- NOTE | 2017-12-14 04:59 | RADRPT ---
EXAM DATE/TIME: 12/14/2017 03:58 [facility] COMPARISON: CHEST SINGLE AP, December 13, 2017, 12:18. INDICATIONS : Shortness of breath, possible pulmonary disease. MEDICAL HISTORY : Cardiovascular disease. SURGICAL HISTORY : Coronary artery stent. CABG. Pacemaker. ENCOUNTER: Subsequent ACUITY: 2 days PAIN SCORE: Non-responsive. LOCATION: Bilateral chest FINDINGS: There is improving consolidation of the right lung now mainly at the base. Left lung is now essential ly clear. No large effusion seen. No pneumothorax. Heart size stable, upper limits of normal. Median sternotomy changes are again noted. A cardiac pacer /defibrillator are again seen. Endotracheal tube is less than a centimeter above the harrison. There is a nasogastric tube coursing in to the stomach, new. CONCLUSION: 1. Improved airspace opacities, now mild on the right and essentially resolved on the left. 2. Endotracheal tube tip is close to the harrison. Iain Barnett MD on December 14, 2017 at 4:57 Board Certified Radiologist. This report was verified electronically.
[2017-12-14] MEDS: FUROSEMIDE 40 MG/4 ML VIAL IV PUSH SCH ×3 (05:08→20:08)
[2017-12-14] MEDS: methylPREDNISolone SOD SUCC 40 MG/1 ML VIAL IV PUSH SCH ×4 (05:08→23:10)
[2017-12-14] MEDS: FAMOTIDINE 20 MG/2 ML VIAL IV PUSH SCH ×2 (05:08→18:12)
[2017-12-14] MEDS: PIPERACIL-TAZO 3.375 GM PREMIX 50 ML IV SCH ×4 (05:09→23:10)
[2017-12-14 05:19] LABS: AUTOMATED NEUTROPHIL # 23.2 TH/MM3 (1.8-7.7); BASOPHIL % 0.2 % (0.0-2.0); HEMATOCRIT 41.9 % (39.0-51.0); LYMPHOCYTE # 1.5 TH/MM3 (1.0-4.8); MEAN CELL VOLUME 93.9 FL (80.0-100.0); MEAN CORPUSCULAR HEMOGLOBIN 31.5 PG (27.0-34.0); MEAN CORPUSCULAR HGB CONC 33.5 % (32.0-36.0); MEAN PLATELET VOLUME 8.4 FL (7.0-11.0); MONO % 1.8 % (0.0-8.0); MONOCYTE # 0.4 TH/MM3 (0-0.9); PLATELET COUNT 210 TH/MM3 (150-450); RED BLOOD COUNT 4.46 MIL/MM3 (4.50-5.90); RED CELL DISTRIBUTION WIDTH 15.2 % (11.6-17.2); WHITE BLOOD COUNT 25.2 TH/MM3 (4.0-11.0)
[2017-12-14 05:22] LABS: INTERNATIONAL NORMALIZED RATIO 1.1 RATIO; PROTHROMBIN TIME - PATIENT 11.1 SEC (9.8-11.6)
[2017-12-14 05:39] LABS: ALBUMIN 2.6 GM/DL (3.4-5.0); AST (GOT) 34 U/L (15-37); BICARBONATE 27.3 MEQ/L (21.0-32.0); BLOOD UREA NITROGEN 23 MG/DL (7-18); CALCIUM 8.2 MG/DL (8.5-10.1); CHLORIDE 105 MEQ/L (98-107); GLOMERULAR FILTRATION RATE 60 ML/MIN (>89); GLUCOSE,RANDOM 169 MG/DL (74-106); SODIUM (NA) 140 MEQ/L (136-145)
[2017-12-14 05:43] LABS: ALKALINE PHOSPHATASE 66 U/L (45-117); ALT (GPT) 51 U/L (12-78); TOTAL BILIRUBIN ADULT 0.5 MG/DL (0.2-1.0); TOTAL PROTEIN 6.9 GM/DL (6.4-8.2)
[2017-12-14 06:02] LABS: TROPONIN I 0.81 NG/ML (0.02-0.05)
[2017-12-14] MEDS: CHLORHEXIDINE 0.12% (ORAL KIT) 15 ML CUP MT SCH ×2 (08:00→20:00)
[2017-12-14] MEDS: POTASSIUM CHLORIDE 25 MEQ EFFERVESCENT TAB PO SCH ×2 (08:21→20:08)
[2017-12-14] MEDS: SODIUM CHLORIDE 0.9% FLUSH 10 ML FLUSH IV FLUSH SCH ×2 (08:22→20:09)
[2017-12-14] MEDS: AMIODARONE 200 MG TAB PO SCH (08:23)
[2017-12-14] MEDS: CARVEDILOL 12.5 MG TAB PO SCH (08:23)
[2017-12-14] MEDS: SPIRONOLACTONE 25 MG TAB PO SCH ×2 (08:23→17:59)
[2017-12-14] MEDS: DOCUSATE SODIUM 50 MG/SENNA 8.6 MG TAB PO SCH ×2 (08:23→20:08)
[2017-12-14] MEDS: DIVALPROEX DR 500 MG TABEC PO SCH ×3 (08:23→17:59)
[2017-12-14] MEDS: GABAPENTIN 300 MG CAP PO SCH ×3 (08:23→17:59)
[2017-12-14] MEDS: CLOPIDOGREL 75 MG TAB PO SCH (09:00)
--- NOTE | 2017-12-14 09:26 | HHI.PR ---
Subjective Subjective Notes got SOB yesterday and had to HALICAT to C. intubated, RN reports no abdominal pain on her assessment Objective Vitals/I&O Vital Signs Date Time Temp Pulse Resp B/P (MAP) Pulse Ox O2 Delivery O2 Flow Rate FiO2 12/14/17 07:34 100 40 12/14/17 06:00 54 12/14/17 04:00 99.2 18 170/75 (106) 12/14/17 04:00 Mechanical Ventilator 12/13/17 11:53 15.00 Labs Laboratory Tests Test 12/13/17 11:15 12/13/17 12:11 12/13/17 12:22 12/13/17 12:34 Blood Gas Puncture Site LT RADIAL RT RADIAL Blood Gas Patient Temperature 98.6 98.6 Blood Gas HCO3 25 22 Blood Gas Base Excess -0.1 -3.3 Blood Gas Oxygen Saturation 87 97 Arterial Blood pH 7.34 7.30 Arterial Blood Partial Pressure CO2 48 47 Arterial Blood Partial Pressure O2 59 182 Arterial Blood Oxygen Content 15.0 16.8 Arterial Blood Carboxyhemoglobin 1.2 0.8 Arterial Blood Methemoglobin 1.1 1.5 Blood Gas Hemoglobin 12.2 12.1 Oxygen Delivery Device NASAL CANNULA VENTILATOR Blood Gas Liter Flow 6 Blood Gas Ventilator Setting PRVC/AC Blood Gas Inspired Oxygen 100 Urine Color YELLOW Urine Turbidity CLEAR Urine pH 5.5 Urine Specific [place] 1.009 Urine Protein NEG Urine Glucose (UA) NEG Urine Ketones NEG Urine Occult Blood MOD Urine Nitrite NEG Urine Bilirubin NEG Urine Urobilinogen LESS THAN 2.0 Urine Leukocyte Esterase NEG Urine RBC 48 Urine WBC 6 Urine WBC Clumps RARE Urine Bacteria RARE Urine Hyaline Casts 15 Urine Mucus FEW Microscopic Urinalysis Comment CATH-CULTURE IND Blood Urea Nitrogen 19 Creatinine 1.29 Random Glucose 141 Total Protein 6.9 Albumin 2.7 Calcium Level 7.7 Alkaline Phosphatase 64 Aspartate Amino Transf (AST/SGOT) 45 Alanine Aminotransferase (ALT/SGPT) 63 Total Bilirubin 0.9 Sodium Level 142 Potassium Level 3.4 Chloride Level 107 Carbon Dioxide Level 24.1 Anion Gap 11 Estimat Glomerular Filtration Rate 55 Lactic Acid Level 3.4 Phosphorus Level 3.7 Total Creatine Kinase 112 Creatine Kinase MB 1.4 Test 12/13/17 13:13 12/13/17 15:07 12/14/17 04:23 Nasal Screen MRSA (PCR) MRSA NOT DETECTED White Blood Count 33.5 25.2 Red Blood Count 3.80 4.46 Hemoglobin 11.9 14.0 Hematocrit 36.3 41.9 Mean Corpuscular Volume 95.6 93.9 Mean Corpuscular Hemoglobin 31.2 31.5 Mean Corpuscular Hemoglobin Concent 32.7 33.5 Red Cell Distribution Width 15.4 15.2 Platelet Count 173 210 Mean Platelet Volume 8.0 8.4 B-Type Natriuretic Peptide 298 Neutrophils (%) (Auto) 92.0 Lymphocytes (%) (Auto) 6.0 Monocytes (%) (Auto) 1.8 Eosinophils (%) (Auto) 0.0 Basophils (%) (Auto) 0.2 Neutrophils # (Auto) 23.2 Lymphocytes # (Auto) 1.5 Monocytes # (Auto) 0.4 Eosinophils # (Auto) 0.0 Basophils # (Auto) 0.0 CBC Comment DIFF FINAL Differential Comment Hematology Comments Prothrombin Time 11.1 Prothromb Time International Ratio 1.1 Activated Partial Thromboplast Time 24.8 Blood Urea Nitrogen 23 Creatinine 1.20 Random Glucose 169 Total Protein 6.9 Albumin 2.6 Calcium Level 8.2 Alkaline Phosphatase 66 Aspartate Amino Transf (AST/SGOT) 34 Alanine Aminotransferase (ALT/SGPT) 51 Total Bilirubin 0.5 Sodium Level 140 Potassium Level 3.7 Chloride Level 105 Carbon Dioxide Level 27.3 Anion Gap 8 Estimat Glomerular Filtration Rate 60 Total Creatine Kinase 97 Troponin I 0.81 Date/Time Source Procedure Growth Status 12/12/17 14:00 Blood Peripheral Aerobic Blood Culture - Preliminary NO GROWTH IN 1 DAY Resulted 12/12/17 14:00 Blood Peripheral Anaerobic Blood Culture - Preliminary NO GROWTH IN 1 DAY Resulted 12/13/17 14:00 Sputum Endotracheal Gram Stain - Final Resulted 12/13/17 14:00 Sputum Endotracheal Sputum Culture Pending Resulted 12/13/17 12:22 Urine Catheterized Urine Urine Culture Pending Received Radiology Last 48 hours Impressions Abdomen/Pelvis CT 12/12/17 0334 Signed Impressions: Service Date/Time: Tuesday, December 12, 2017 04:07 - CONCLUSION: 1. Cholelithiasis and with CT findings of concern for early or mild acute cholecystitis in the proper clinical setting. No duct stone or obstruction. 2. No other acute abnormalities are demonstrated. Ventral hernia containing transverse colon but without evidence of obstruction or strangulation. Aortofemoral bypass changes and appears patent. Iain Barnett MD Chest X-Ray 12/12/17 0141 Signed Impressions: Service Date/Time: Tuesday, December 12, 2017 02:06 - CONCLUSION: No evidence of acute cardiopulmonary disease. Resolved bibasilar consolidation.. Iain Barnett MD Narrative Exam abdomen - pt grimaces with RUQ palpation, otherwise abdomen soft A/P Assessment and Plan acute cholecystitis not a surgical candidate at this time cholecystostomy tube today by IR continue supportive care John Bryan MD Dec 14, 2017 09:26
--- NOTE | 2017-12-14 09:48 | HHI.CCPN ---
Subjective Remarks/Hospital Course This is a 72-year-old male patient with history of CAD with stent placement on Plavix, CHF, EF 25-30% on Echo done 10/27/17, atrial fibrillation on Eliquis, hyperlipidemia and HTN who presented to the ED with right upper quadrant abdominal pain. CT of the abdomen/pelvis showed cholelithiasis and acute Cholecystitis. Patient was admitted to [facility] service and was started on Zosyn. General surgery Dr. Martinez was consulted but due to chronic apixaban use for atrial fibrillation and Plavix, Dr. Martinez recommended cholecystomy tube placement with IR. He was scheduled to get cholecystostomy tube today. A Halicat was called today as patient developed acute severe shortness of breath and hypoxia. Received IV Lasix 40 mg, IV Solumedrol and DuoNeb breathing treatment without improvement. He developed respiratory extremis, became unresponsive with severe hypoxemia and was emergently transferred to ICU. I met the patient immediately in the ICU, immediate bag and mask ventilation was started. Patient was hooked up to the ICU monitor which showed a oxygen saturation to be 78%. Patient was unresponsive with tachypnea rapid shallow breathing at about 40-45 breaths per minute. Oral airway was placed and with aggressive bag and mask ventilation saturation came up to 91%. Rapid sequence intubation initiated and placed patient on mechanical ventilation. Stat chest x -ray showed worsening pulmonary edema/CHF. Stat CT pulmonary angiogram did not show any evidence of PE but does show bilateral interstitial infiltrates and consolidation of predominantly left lower lobe. Schedule IV Lasix started, also started Aldactone. I discussed with Dr. Rahman from IR. Plan for cholecystostomy tube placement tomorrow. Hold apixaban continue Plavix. A cardiac cath by Dr. Hoff on 10/28/17 showed severe [place] coronary artery disease with patent LUI to LAD and known [place] vessel CAD. Continued medical management was recommended SUBJ 12/14: Remained intubated sedated. Remains critical with ongoing sepsis but white count trending down now 25,000. Urine output approximately 3 L with aggressive diuresis. Chest x-ray shows improvement. Plan for cholecystostomy tube by IR today Objective Vital Signs Date Time Temp Pulse Resp B/P (MAP) Pulse Ox O2 Delivery O2 Flow Rate FiO2 12/14/17 08:00 99.1 48 19 158/68 (98) 100 12/14/17 08:00 45 12/14/17 04:00 Mechanical Ventilator 12/13/17 11:53 15.00 Intake and Output 12/14/17 12/14/17 12/15/17 08:00 16:00 00:00 Intake Total 150 ml 100 ml Output Total 1700 ml Balance -1550 ml 100 ml Result Diagram: 12/14/17 0423 12/14/17 0423 Other Results Laboratory Tests Test 12/13/17 11:15 12/13/17 12:11 Blood Gas Puncture Site LT RADIAL RT RADIAL Blood Gas Patient Temperature 98.6 98.6 Blood Gas HCO3 25 mmol/L (22-26) 22 mmol/L (22-26) Blood Gas Base Excess -0.1 mmol/L (-2-2) -3.3 mmol/L (-2-2) Blood Gas Oxygen Saturation 87 % (90-100) 97 % (90-100) Arterial Blood pH 7.34 (7.380-7.420) 7.30 (7.380-7.420) Arterial Blood Partial Pressure CO2 48 mmHg (38-42) 47 mmHg (38-42) Arterial Blood Partial Pressure O2 59 mmHg (61-120) 182 mmHg (61-120) Arterial Blood Oxygen Content 15.0 Vol % (12.0-20.0) 16.8 Vol % (12.0-20.0) Arterial Blood Carboxyhemoglobin 1.2 % (0-4) 0.8 % (0-4) Arterial Blood Methemoglobin 1.1 % (0-2) 1.5 % (0-2) Blood Gas Hemoglobin 12.2 G/DL (12.0-16.0) 12.1 G/DL (12.0-16.0) Oxygen Delivery Device NASAL CANNULA VENTILATOR Blood Gas Liter Flow 6 L/M Blood Gas Ventilator Setting PRVC/AC Blood Gas Inspired Oxygen 100 % Imaging Chest x-ray shows pulmonary edema CT pulmonary angiogram negative for PE, bilateral interstitial infiltration consolidation predominantly left lower lobe Objective Remarks GENERAL: Intubated sedated SKIN: Warm and dry. HEAD: Normocephalic. Atraumatic. EYES: Pupils equal and round. ENT: Orotracheally intubated NECK: Supple. CARDIOVASCULAR: S1, S2 noted. No murmur appreciated. RESPIRATORY: Intubated, sedated. Air entry equal bilaterally no wheezes or crackles GASTROINTESTINAL: Abdomen soft, round MUSCULOSKELETAL: Extremities without clubbing, cyanosis, or edema. NEUROLOGICAL: Intubated sedated. On lightening sedation patient does follow commands A/P Assessment and Plan ASSESSMENT: Acute hypoxemic respiratory failure Acute on chronic systolic CHF exacerbation Severe sepsis Acute cholecystitis Pneumonia CAD status post CABG Ischemic cardiomyopathy status post AICD placement Chronic atrial fibrillation on apixaban Obesity Probable COPD PLAN: NEURO: -Propofol for sedation and ventilator synchrony -Daily sedation vacation starting after IR procedure -Continue divalproex and Neurontin, hold duloxetine RESP: -Emergently intubated and placed on mechanical ventilation -PRCV/AC RR 18 TV 550 iT 1 PEEP 10. FiO2 100% Now Fio2 down to 45% -After IR procedure attempt CPAP -CT shows bilateral interstitial infiltrates and consolidation predominantly left lower lobe -Continue Zosyn, add azithromycin, f/u sputum culture -DuoNeb every 6 hours scheduled and as needed -Continue IV Solu-Medrol 40 mg every 6 hours CV: -Acute respiratory decompensation seems to be secondary to flash pulmonary edema -Continue IV Lasix 40 mg every 8 hours with potassium replacement -Aldactone 25 BID -Echo 10/27/17: EF 25-30% with WMA, Cath 10/28/17evere [place] CAD -Hold lisinopril while getting diuresis -Hold apixaban and Plavix in anticipation of cholecystostomy tube placement -Continue amiodarone, carvedilol, Lipitor -Add ASA from 12/15 GI: -Cholecystostomy drainage tube placement in 24 hours by IR -Continue broad-spectrum antibiotics see ID section -N.p.o. IV famotidine : -Monitor renal function closely. Cabrera catheter. -IV Lasix as above ID: -F/U blood cultures, sputum, send biliary fluid culture -IV vancomycin x 1 dose, continue Zosyn. Add azithromycin HEME: -Monitor CBC, CMP, coags -Hold apixaban in anticipation of invasive procedures ENDO: -Electrolyte replacement per protocol -Sliding scale insulin if needed PROPH: -Bilateral lower extremity SCDs. Lovenox 40 mg sq daily. IV Famotidine LINES: -Utilize peripheral IVs, central line if needed CC time 35 min, excluding procedures 72-year-old male with ischemic cardiac myopathy admitted for severe sepsis and acute cholecystitis presenting with respiratory extremis to the ICU. Emergently intubated currently with flash pulmonary edema. Severely hypoxic requiring high ventilator support. Continue with IV diuresis and IV antibiotics. Remains critically ill but stable Tameka Timmons MD Dec 14, 2017 09:48
[2017-12-14] MEDS ORDERED: TERBUTALINE INJ 1 MG/ML AMP SQ PRN (10:45)
[2017-12-14] MEDS ORDERED: DOPamine INJ 800 MG in DEXTROSE 5% IN WATER INJ 230 ML IV PRN ×2 (10:45)
--- NOTE | 2017-12-14 12:53 | PD.RAD ---
Post Procedure Progress Note Pre Procedure Diagnosis: (1) Acute cholecystitis Post Procedure Diagnosis: (1) Acute cholecystitis Procedure Date: Dec 14, 2017 Supervising Radiologist: Iain Ontiveros Proceduralist/Assist: RT Avila(R)() Anesthesia: Local, Conscious Sedation Plan of Activity Patient to Unit: Critical Care Patient Condition: Fair See PACS Report for procedural detail/treatment Drainage Procedure Procedure 1 Imaging Guidance: Fluoroscopy, Ultrasound Procedure Type: Cholecystostomy Procedure: Placement Syriac: 6 Drainage: [place] drainage Fluid Description: Iain Gomez MD Dec 14, 2017 12:53
--- NOTE | 2017-12-14 13:28 | RADRPT ---
EXAM DATE/TIME: 12/14/2017 11:54 [facility] COMPARISON: No previous studies available for comparison. INDICATIONS : Patient presents with cholecystitis in need of percutaneous cholecystostomy tube placment for drainag e. MEDICAL HISTORY : HTN CAD CABG AICD A-fib on Eliquis SURGICAL HISTORY : Cardiac Stent CABG AICD ENCOUNTER: Initial ACUITY: 2 days PAIN SCORE: 0/10 LOCATION: N/A FLUORO TIME: 0.8 minutes IMAGE SERIES: 1 DEVICE(S): 1.) 6 Stateless SHIKHA PROCEDURE : 1. Ultrasound guided puncture of the gallbladder. 2. fluoroscopic guidance for percutaneous cholecystostomy 3. Percutaneous cholecystostomy tube placement. 4. Conscious sedation with continuous EKG and oximetry monitoring. The risks, benefits and alternatives to the procedure were explained and verbal and written consent w as obtained. The site was prepped in sterile fashion. Full sterile technique was used, including ca p, mask, sterile gloves and gown and a large sterile sheet. Hand hygiene and 2% chlorhexidine and/or betadine/alcohol prep was utilized per protocol for cutaneous antisepsis. Sterile gel and sterile p robe cover were utilized for ultrasound guidance. The skin and subcutaneous tissues were infiltrated with local anesthetic solution. With ultrasound and fluoroscopic guidance the gallbladder was punctured with a micropuncture set and a 4 Stateless dilator was placed. There was spontaneous return of relatively nonviscous bile. A 0.035 g uidewire was placed within the gallbladder lumen and dilatation was performed to accept the prescribe d catheter. The catheter was secured with a Percu-Stay apparatus and connected to gravity drainage. Conscious sedation was performed with the prescribed dosages and duration as above in the presence of an independent trained radiology nurse to assist in the monitoring of the patient. EKG and oximetry remained stable throughout the procedure. The patient tolerated the procedure well and there were n o complications. The patient was sent to post anesthesia recovery in stable condition. CONCLUSION: Uncomplicated percutaneous cholecystostomy as above. Iain Ontiveros MD on December 14, 2017 at 13:26 Board Certified Radiologist. This report was verified electronically.
[2017-12-14] MEDS: AZITHROMYCIN INJ 500 MG in SODIUM CHLOR 0.9% 250 ML INJ 250 ML IV SCH (15:17)
[2017-12-14] MEDS: ACETAMINOPHEN/HYDROcodone 325 MG/5 MG TAB PO PRN ×2 (15:19→21:31)
[2017-12-14] MEDS: ENOXAPARIN SODIUM 40 MG/0.4 ML SYRINGE SQ SCH (15:19)
[2017-12-14] MEDS: ASPIRIN 81 MG CHEW TAB CHEW SCH (18:12)
[2017-12-14] MEDS: MORPHINE SULFATE 2 MG/ML INJ IV PRN ×2 (19:08→23:10)
[2017-12-14] MEDS: ATORVASTATIN 40 MG TAB PO SCH (20:08)
[2017-12-14 21:13] LABS: TROPONIN I 0.39 NG/ML (0.02-0.05)
[2017-12-15] VITALS (13 sets, daily range): BP systolic 104–137; BP diastolic 52–72; PULSE 48–58; RESP 17–34; TEMP 97.6–98.4; O2SAT 96–100
[2017-12-15] MEDS: FUROSEMIDE 40 MG/4 ML VIAL IV PUSH SCH ×3 (03:12→23:36)
[2017-12-15] MEDS: methylPREDNISolone SOD SUCC 40 MG/1 ML VIAL IV PUSH SCH ×4 (06:18→23:35)
[2017-12-15] MEDS: APIXABAN 5 MG TABLET PO SCH ×2 (06:18→19:54)
[2017-12-15] MEDS: FAMOTIDINE 20 MG/2 ML VIAL IV PUSH SCH (06:18)
[2017-12-15] MEDS: PIPERACIL-TAZO 3.375 GM PREMIX 50 ML IV SCH ×4 (06:20→23:36)
[2017-12-15] MEDS: CHLORHEXIDINE 0.12% (ORAL KIT) 15 ML CUP MT SCH ×2 (08:00→20:00)
[2017-12-15] MEDS: DIVALPROEX DR 500 MG TABEC PO SCH ×3 (08:06→18:41)
[2017-12-15] MEDS: ASPIRIN 81 MG CHEW TAB CHEW SCH (08:06)
[2017-12-15] MEDS: SPIRONOLACTONE 25 MG TAB PO SCH ×2 (08:06→18:41)
[2017-12-15] MEDS: CLOPIDOGREL 75 MG TAB PO SCH (08:07)
[2017-12-15] MEDS: CARVEDILOL 12.5 MG TAB PO SCH (08:07)
[2017-12-15] MEDS: GABAPENTIN 300 MG CAP PO SCH ×3 (08:07→18:41)
[2017-12-15] MEDS: DOCUSATE SODIUM 50 MG/SENNA 8.6 MG TAB PO SCH ×2 (08:07→20:00)
[2017-12-15] MEDS: POTASSIUM CHLORIDE 25 MEQ EFFERVESCENT TAB PO SCH ×2 (08:08→20:00)
[2017-12-15] MEDS: AMIODARONE 200 MG TAB PO SCH (08:09)
--- NOTE | 2017-12-15 09:58 | HHI.CCPN ---
Subjective Remarks/Hospital Course This is a 72-year-old male patient with history of CAD with stent placement on Plavix, CHF, EF 25-30% on Echo done 10/27/17, atrial fibrillation on Eliquis, hyperlipidemia and HTN who presented to the ED with right upper quadrant abdominal pain. CT of the abdomen/pelvis showed cholelithiasis and acute Cholecystitis. Patient was admitted to [facility] service and was started on Zosyn. General surgery Dr. Martinez was consulted but due to chronic apixaban use for atrial fibrillation and Plavix, Dr. Martinez recommended cholecystomy tube placement with IR. He was scheduled to get cholecystostomy tube today. A Halicat was called today as patient developed acute severe shortness of breath and hypoxia. Received IV Lasix 40 mg, IV Solumedrol and DuoNeb breathing treatment without improvement. He developed respiratory extremis, became unresponsive with severe hypoxemia and was emergently transferred to ICU. I met the patient immediately in the ICU, immediate bag and mask ventilation was started. Patient was hooked up to the ICU monitor which showed a oxygen saturation to be 78%. Patient was unresponsive with tachypnea rapid shallow breathing at about 40-45 breaths per minute. Oral airway was placed and with aggressive bag and mask ventilation saturation came up to 91%. Rapid sequence intubation initiated and placed patient on mechanical ventilation. Stat chest x -ray showed worsening pulmonary edema/CHF. Stat CT pulmonary angiogram did not show any evidence of PE but does show bilateral interstitial infiltrates and consolidation of predominantly left lower lobe. Schedule IV Lasix started, also started Aldactone. I discussed with Dr. Rahman from IR. Plan for cholecystostomy tube placement tomorrow. Hold apixaban continue Plavix. A cardiac cath by Dr. Hoff on 10/28/17 showed severe [place] coronary artery disease with patent LUI to LAD and known [place] vessel CAD. Continued medical management was recommended SUBJ 12/14: Remained intubated sedated. Remains critical with ongoing sepsis but white count trending down now 25,000. Urine output approximately 3 L with aggressive diuresis. Chest x-ray shows improvement. Plan for cholecystostomy tube by IR today 12/15: Extubated yesterday tolerating well with good oxygen saturation. Labs and chest x-ray pending today. Urine output 2 L in 24 hours. 300 ml output from cholecystostomy tube Objective Vital Signs Date Time Temp Pulse Resp B/P (MAP) Pulse Ox O2 Delivery O2 Flow Rate FiO2 12/15/17 06:00 48 12/15/17 04:00 98.1 34 124/58 (80) 98 12/14/17 22:00 Nasal Cannula 4.00 12/14/17 12:30 50 Intake and Output 12/15/17 12/15/17 12/16/17 08:00 16:00 00:00 Output Total 1250 ml Balance -1250 ml Result Diagram: 12/14/1742212/14/17422 Imaging Chest x-ray shows pulmonary edema CT pulmonary angiogram negative for PE, bilateral interstitial infiltration consolidation predominantly left lower lobe Objective Remarks GENERAL: Laying in bed comfortably no acute distress SKIN: Warm and dry. HEAD: Normocephalic. Atraumatic. EYES: Pupils equal and round. ENT: Oral cavity is dry airway patent NECK: Supple. CARDIOVASCULAR: S1, S2 noted. No murmur appreciated. RESPIRATORY: Air entry equal bilaterally no wheezes or crackles GASTROINTESTINAL: Abdomen soft, round MUSCULOSKELETAL: Extremities without clubbing, cyanosis, or edema. NEUROLOGICAL: Alert awake orient. No focal deficits Urinary Catheter: Yes Assessment to: Continue A/P Assessment and Plan ASSESSMENT: Acute hypoxemic respiratory failure-resolved Acute on chronic systolic CHF exacerbation Severe sepsis Acute cholecystitis Pneumonia Troponin elevation, possible demand ischemia CAD status post CABG Ischemic cardiomyopathy status post AICD placement Chronic atrial fibrillation on apixaban Obesity Probable COPD PLAN: NEURO: -Minimize sedation -Continue divalproex and Neurontin, hold duloxetine RESP: -Emergently intubated and placed on mechanical ventilation 12/13 -Extubated 12/14, tolerating well -CT shows bilateral interstitial infiltrates and consolidation predominantly left lower lobe -Continue Zosyn, add azithromycin, f/u sputum culture -DuoNeb every 6 hours scheduled and as needed -Continue IV Solu-Medrol 40 mg every 6 hours CV: -Acute respiratory decompensation seems to be secondary to flash pulmonary edema -Continue IV Lasix 40 mg every 8 hours with potassium replacement, CXR shows improvement in bilateral infiltrates -Aldactone 25 BID -Echo 10/27/17: EF 25-30% with WMA, Cath 10/28/17 severe [place] CAD -Holding lisinopril while getting diuresis -Continue apixaban and Plavix in anticipation of cholecystostomy tube placement -Continue amiodarone, carvedilol, Lipitor GI: -Cholecystostomy drainage tube placement in 24 hours by IR -Continue broad-spectrum antibiotics see ID section -N.p.o. IV famotidine. Diet if ok with general surgery : -Monitor renal function closely. Cabrera catheter-DC today -IV Lasix as above ID: -F/U blood cultures, sputum, biliary fluid culture -s/p IV vancomycin x 1 dose, continue Zosyn. Azithromycin HEME: -Monitor CBC, CMP, coags -Resume apixaban ENDO: -Electrolyte replacement per protocol -Sliding scale insulin if needed PROPH: -Bilateral lower extremity SCDs. Resume Apixaban. IV Famotidine LINES: -Utilize peripheral IVs, central line if needed Level 2 Consult [facility] to assume care in am 12/16/17 Tameka Timmons MD Dec 15, 2017 09:58
--- NOTE | 2017-12-15 10:25 | RADRPT ---
EXAM DATE/TIME: 12/15/2017 10:02 [facility] COMPARISON: CHEST SINGLE AP, December 14, 2017, 3:58. INDICATIONS : Short of breath MEDICAL HISTORY : Hypertension. a-fib SURGICAL HISTORY : CABG. AICD ENCOUNTER: Initial ACUITY: 3 days PAIN SCORE: 0/10 LOCATION: Bilateral chest FINDINGS: Pacemaker device is noted with control pack over the left chest. There is been interval extubation an d removal of nasogastric tube. There has been continued clearance of edema. No there is minimal blunt ing of the left costophrenic angle which may reflect small effusion. Cardiac contours are grossly sat isfactory ectatic for rotation. CONCLUSION: Interval extubation and continued improvement in aeration. Iain Ontiveros MD on December 15, 2017 at 10:22 Board Certified Radiologist. This report was verified electronically.
[2017-12-15 10:30] LABS: MAGNESIUM 1.9 MG/DL (1.5-2.5)
--- NOTE | 2017-12-15 10:46 | HHI.PR ---
cc: Sergio Martinez MD Subjective Subjective Notes "How do I turn down the TV so we can talk?" Objective Vitals/I&O Vital Signs Date Time Temp Pulse Resp B/P (MAP) Pulse Ox O2 Delivery O2 Flow Rate FiO2 12/15/17 06:00 48 12/15/17 04:00 98.1 34 124/58 (80) 98 12/14/17 22:00 Nasal Cannula 4.00 12/14/17 12:30 50 Labs Laboratory Tests Test 12/14/17 20:12 12/15/17 08:35 Total Creatine Kinase 211 Creatine Kinase MB 2.5 Troponin I 0.39 0.35 Magnesium Level 1.9 Date/Time Source Procedure Growth Status 12/12/17 14:00 Blood Peripheral Aerobic Blood Culture - Preliminary NO GROWTH IN 2 DAYS Resulted 12/12/17 14:00 Blood Peripheral Anaerobic Blood Culture - Preliminary NO GROWTH IN 2 DAYS Resulted 12/13/17 14:00 Sputum Endotracheal Gram Stain - Final Resulted 12/13/17 14:00 Sputum Endotracheal Sputum Culture - Preliminary RESULTS PENDING Resulted 12/13/17 12:22 Urine Catheterized Urine Urine Culture - Final NO GROWTH IN 48 HOURS. Complete Radiology Last 48 hours Impressions Abdomen/Pelvis CT 12/12/17 0334 Signed Impressions: Service Date/Time: Tuesday, December 12, 2017 04:07 - CONCLUSION: 1. Cholelithiasis and with CT findings of concern for early or mild acute cholecystitis in the proper clinical setting. No duct stone or obstruction. 2. No other acute abnormalities are demonstrated. Ventral hernia containing transverse colon but without evidence of obstruction or strangulation. Aortofemoral bypass changes and appears patent. Iain Barnett MD Chest X-Ray 12/12/17 0141 Signed Impressions: Service Date/Time: Tuesday, December 12, 2017 02:06 - CONCLUSION: No evidence of acute cardiopulmonary disease. Resolved bibasilar consolidation.. Iain Barnett MD Cardiovascular: Regular Lungs: Clear Abdomen: Other (mildly distended; Farhana tube in place with dark bilious drainage in bag ) Extremities: No edema A/P Assessment and Plan 72 year old male with acute cholecystitis; recent stent placement on OAC -S/p IR placed farhana tube -S/p respiratory distress---intubated over the weekend and now extubated-- stable on NC -Clear liquids -Monitor labs -OOB as tolerated Attending Note - Dr. Martinez Abdomen much more comfortable; minimal pain RUQ except at drain site Greenish bile with sludge in tubing He appears to potentially be on three oral anticoagulant meds; need to get his bottles of meds and square up what he should be on with cardiology Will need tube in for three weeks and then have cholangiogram through tube; if cystic duct still occluded, will need cholecystectomy, which will be closer to six months after stent placement. His surgery will be hazardous no matter what. The exam, history, and the medical decision-making described in the above note were completed with the assistance of the mid-level provider. I reviewed and agree with the findings presented. I attest that I had a [id number] encounter with the patient on the same day, and personally performed and documented my assessment and findings in the medical record. Mag Means/First Víctor EMMANUEL Dec 15, 2017 10:46 Sergio Martinez MD Dec 16, 2017 11:42
[2017-12-15 10:57] LABS: AUTOMATED NEUTROPHIL # 17.5 TH/MM3 (1.8-7.7); BASOPHIL % 0.1 % (0.0-2.0); HEMATOCRIT 34.5 % (39.0-51.0); HEMOGLOBIN 11.7 GM/DL (13.0-17.0); LYMPH % 4.8 % (9.0-44.0); LYMPHOCYTE # 0.9 TH/MM3 (1.0-4.8); MEAN CELL VOLUME 93.6 FL (80.0-100.0); MEAN CORPUSCULAR HEMOGLOBIN 31.7 PG (27.0-34.0); MEAN CORPUSCULAR HGB CONC 33.8 % (32.0-36.0); MEAN PLATELET VOLUME 8.1 FL (7.0-11.0); MONO % 2.3 % (0.0-8.0); MONOCYTE # 0.4 TH/MM3 (0-0.9); NEUT % 92.8 % (16.0-70.0); PLATELET COUNT 263 TH/MM3 (150-450); RED BLOOD COUNT 3.69 MIL/MM3 (4.50-5.90); RED CELL DISTRIBUTION WIDTH 14.9 % (11.6-17.2); WHITE BLOOD COUNT 18.9 TH/MM3 (4.0-11.0)
[2017-12-15 11:16] LABS: ALBUMIN 2.5 GM/DL (3.4-5.0); ALKALINE PHOSPHATASE 57 U/L (45-117); ALT (GPT) 35 U/L (12-78); AST (GOT) 16 U/L (15-37); BICARBONATE 29.9 MEQ/L (21.0-32.0); BLOOD UREA NITROGEN 34 MG/DL (7-18); CALCIUM 8.1 MG/DL (8.5-10.1); CHLORIDE 100 MEQ/L (98-107); CREATININE 1.59 MG/DL (0.60-1.30); GLOMERULAR FILTRATION RATE 43 ML/MIN (>89); GLUCOSE,RANDOM 198 MG/DL (74-106); MAGNESIUM 1.8 MG/DL (1.5-2.5); SODIUM (NA) 140 MEQ/L (136-145); TOTAL BILIRUBIN ADULT 0.4 MG/DL (0.2-1.0); TOTAL PROTEIN 6.7 GM/DL (6.4-8.2)
[2017-12-15] MEDS: ACETAMINOPHEN/HYDROcodone 325 MG/5 MG TAB PO PRN (11:57)
[2017-12-15] MEDS: SODIUM CHLORIDE 0.9% FLUSH 10 ML FLUSH IV FLUSH SCH ×2 (11:58→20:00)
[2017-12-15] MEDS: AZITHROMYCIN INJ 500 MG in SODIUM CHLOR 0.9% 250 ML INJ 250 ML IV SCH (14:00)
[2017-12-15] MEDS: ATORVASTATIN 40 MG TAB PO SCH (20:00)
[2017-12-16] VITALS (11 sets, daily range): BP systolic 151–169; BP diastolic 67–89; PULSE 44–56; RESP 18–27; TEMP 97.7–98.8; O2SAT 87–100
[2017-12-16] MEDS: APIXABAN 5 MG TABLET PO SCH ×2 (05:23→17:36)
[2017-12-16] MEDS: PIPERACIL-TAZO 3.375 GM PREMIX 50 ML IV SCH ×3 (05:23→17:37)
[2017-12-16] MEDS: methylPREDNISolone SOD SUCC 40 MG/1 ML VIAL IV PUSH SCH ×3 (05:23→17:24)
[2017-12-16] MEDS: DIVALPROEX DR 500 MG TABEC PO SCH ×3 (07:52→17:23)
[2017-12-16] MEDS: AMIODARONE 200 MG TAB PO SCH (07:52)
[2017-12-16] MEDS: DOCUSATE SODIUM 50 MG/SENNA 8.6 MG TAB PO SCH ×2 (07:52→20:22)
[2017-12-16] MEDS: CARVEDILOL 12.5 MG TAB PO SCH (07:52)
[2017-12-16] MEDS: SPIRONOLACTONE 25 MG TAB PO SCH ×2 (07:53→17:24)
[2017-12-16] MEDS: GABAPENTIN 300 MG CAP PO SCH ×3 (07:53→17:22)
[2017-12-16] MEDS: CLOPIDOGREL 75 MG TAB PO SCH (07:53)
[2017-12-16] MEDS: POTASSIUM CHLORIDE 25 MEQ EFFERVESCENT TAB PO SCH ×2 (07:53→20:21)
[2017-12-16] MEDS: SODIUM CHLORIDE 0.9% FLUSH 10 ML FLUSH IV FLUSH SCH ×2 (07:54→20:21)
[2017-12-16] MEDS: CHLORHEXIDINE 0.12% (ORAL KIT) 15 ML CUP MT SCH ×2 (08:00→20:00)
--- NOTE | 2017-12-16 12:51 | HHI.PR ---
cc: Sergio Martinez MD Subjective Subjective Notes "I'm starving!" Objective Vitals/I&O Vital Signs Date Time Temp Pulse Resp B/P (MAP) Pulse Ox O2 Delivery O2 Flow Rate FiO2 12/16/17 10:00 48 12/16/17 08:00 98.7 27 155/89 (111) 97 12/15/17 20:00 Nasal Cannula 12/14/17 22:00 4.00 12/14/17 12:30 50 Labs Date/Time Source Procedure Growth Status 12/12/17 14:00 Blood Peripheral Aerobic Blood Culture - Preliminary NO GROWTH IN 4 DAYS Resulted 12/12/17 14:00 Blood Peripheral Anaerobic Blood Culture - Preliminary NO GROWTH IN 4 DAYS Resulted 12/13/17 14:00 Sputum Endotracheal Gram Stain - Final Complete 12/13/17 14:00 Sputum Endotracheal Sputum Culture - Final NO GROWTH IN 48 HOURS. Complete 12/13/17 12:22 Urine Catheterized Urine Urine Culture - Final NO GROWTH IN 48 HOURS. Complete Radiology Last 48 hours Impressions Abdomen/Pelvis CT 12/12/17 0334 Signed Impressions: Service Date/Time: Tuesday, December 12, 2017 04:07 - CONCLUSION: 1. Cholelithiasis and with CT findings of concern for early or mild acute cholecystitis in the proper clinical setting. No duct stone or obstruction. 2. No other acute abnormalities are demonstrated. Ventral hernia containing transverse colon but without evidence of obstruction or strangulation. Aortofemoral bypass changes and appears patent. Iain Barnett MD Chest X-Ray 12/12/17 0141 Signed Impressions: Service Date/Time: Tuesday, December 12, 2017 02:06 - CONCLUSION: No evidence of acute cardiopulmonary disease. Resolved bibasilar consolidation.. Iain Barnett MD Cardiovascular: Regular Lungs: Clear Abdomen: Other (soft; angela tube in place with bilious drainage---drainage to gravtiy ) Extremities: No edema A/P Assessment and Plan 72 year old male with acute cholecystitis; recent stent placement on OAC -S/p IR placed angela tube -S/p respiratory distress---intubated over the weekend and now extubated-- stable on NC -Advanced to heart healthy diet -Cardiology following -Monitor labs -OOB as tolerated Attending Note - Dr. Martinez Reports some RUQ pain near drain site. Improved from GS stdpoint. Will follow for another day or so; will need cholangiogram through tube in 2-3 weeks. The exam, history, and the medical decision-making described in the above note were completed with the assistance of the mid-level provider. I reviewed and agree with the findings presented. I attest that I had a [id number] encounter with the patient on the same day, and personally performed and documented my assessment and findings in the medical record. Mag Means/First Víctor EMMANUEL Dec 16, 2017 12:51 Sergio Martinez MD Dec 17, 2017 16:30
[2017-12-16] MEDS: FUROSEMIDE 40 MG/4 ML VIAL IV PUSH SCH (13:36)
[2017-12-16] MEDS: AZITHROMYCIN INJ 500 MG in SODIUM CHLOR 0.9% 250 ML INJ 250 ML IV SCH (13:38)
[2017-12-16] MEDS: ACETAMINOPHEN/HYDROcodone 325 MG/5 MG TAB PO PRN ×2 (13:45→20:22)
--- NOTE | 2017-12-16 15:00 | HHI.PR ---
Subjective Remarks Denies cp, sob. On room air. Objective Vitals Vital Signs Date Time Temp Pulse Resp B/P (MAP) Pulse Ox O2 Delivery O2 Flow Rate FiO2 12/16/17 12:00 54 12/16/17 12:00 98.8 54 169/77 (107) 100 12/16/17 10:00 48 12/16/17 08:00 54 12/16/17 08:00 98.7 54 27 155/89 (111) 97 12/16/17 06:00 46 12/16/17 04:00 48 12/16/17 04:00 98.4 48 23 168/70 (102) 87 12/16/17 02:00 44 12/16/17 00:00 98.4 48 18 151/67 (95) 94 12/16/17 00:00 48 12/15/17 22:00 50 12/15/17 20:00 100 Nasal Cannula 12/15/17 20:00 97.6 49 17 136/63 (87) 96 12/15/17 20:00 49 12/15/17 18:00 49 12/15/17 16:00 48 12/15/17 16:00 97.8 48 19 125/61 (82) 99 I/O 12/15/17 12/15/17 12/15/17 12/16/17 12/16/17 12/16/17 07:00 15:00 23:00 07:00 15:00 23:00 Intake Total 50 ml 50 ml 530 ml 340 ml Output Total 1250 ml 1830 ml 550 ml Balance -1200 ml 50 ml -1300 ml -210 ml Intake Oral 480 ml 240 ml IV Total 50 ml 50 ml 50 ml 100 ml Output Urine Total 1050 ml 1800 ml 400 ml Drainage Total 200 ml 30 ml 150 ml # Bowel Movements 0 1 Result Diagram: 12/15/17 1035 12/15/17 1035 Imaging Last Impressions Chest X-Ray 12/15/17 0000 Signed Impressions: Service Date/Time: Friday, December 15, 2017 10:02 - CONCLUSION: Interval extubation and continued improvement in aeration. Iain Ontiveros MD Percutaneous Cholangiogram 12/14/17 0000 Signed Impressions: Service Date/Time: Thursday, December 14, 2017 11:54 - CONCLUSION: Uncomplicated percutaneous cholecystostomy as above. Iain Ontiveros MD CT Angiography 12/13/17 0000 Signed Impressions: Service Date/Time: Wednesday, December 13, 2017 12:48 - CONCLUSION: 1. No evidence of pulmonary embolism 2. Bilateral increased interstitial markings suggestive of pulmonary edema. 3. Scattered bilateral pulmonary infiltrates Gene Ferraro MD Abdomen/Pelvis CT 12/12/17 0334 Signed Impressions: Service Date/Time: Tuesday, December 12, 2017 04:07 - CONCLUSION: 1. Cholelithiasis and with CT findings of concern for early or mild acute cholecystitis in the proper clinical setting. No duct stone or obstruction. 2. No other acute abnormalities are demonstrated. Ventral hernia containing transverse colon but without evidence of obstruction or strangulation. Aortofemoral bypass changes and appears patent. Iain Barnett MD Head CT 12/12/17 0000 Signed Impressions: Service Date/Time: Tuesday, December 12, 2017 18:42 - CONCLUSION: 1. Senescent changes with mild small vessel ischemic periventricular white matter demyelination. 2. Mild ventriculomegaly which may be slightly out of portion to the degree of atrophy. Clinical correlation for normal pressure hydrocephalus is recommended. Dino Coyne MD Objective Remarks Awake and alert In severe respiratory distress There is decreased breath sounds in bilateral lung san, no wheezing, bilateral rales in bilateral lower lung san. Abdomen is soft, tender to palpation of right upper quadrant, no rebound tenderness, no guarding. No edema in bilateral extremities. Medications and IVs Current Medications Medications (Trade) Dose Ordered Sig/Eliot Route Start Time Stop Time Status Last Admin (NS Flush) 2 ml UNSCH PRN IV FLUSH 12/12/17 06:00 (NS Flush) 2 ml BID IV FLUSH 12/12/17 09:00 12/16/17 20:21 (Tylenol) 650 mg Q4H PRN PO 12/12/17 06:00 (Zofran Inj) 4 mg Q6H PRN IVP 12/12/17 06:00 (Narcan Inj) 0.4 mg UNSCH PRN IV PUSH 12/12/17 06:00 (Lillian-Colace) 1 tab BID PO 12/12/17 09:00 12/16/17 20:22 (Milk Of Magnesia Liq) 30 ml Q12H PRN PO 12/12/17 06:00 (Senokot) 17.2 mg Q12H PRN PO 12/12/17 06:00 (Dulcolax Supp) 10 mg DAILY PRN RECTAL 12/12/17 06:00 (Lactulose Liq) 30 ml DAILY PRN PO 12/12/17 06:00 Piperacillin Sod/ Tazobactam Sod 50 ml @ 100 mls/hr Q6H IV 12/12/17 06:00 12/16/17 17:37 (Morphine Inj) 2 mg Q4H PRN IV 12/12/17 11:45 12/14/17 23:10 ([place] 5-325 Mg) 1 tab Q6H PRN PO 12/12/17 11:45 12/16/17 20:22 ([place] 5-325 Mg) 2 tab Q6H PRN PO 12/12/17 11:45 12/16/17 13:45 (SoluMEDROL INJ) 40 mg Q6HR IV PUSH 12/13/17 18:00 12/16/17 17:24 (Peridex 0.12% Liq) 15 ml BID@08,20 MT 12/13/17 20:00 12/13/17 20:00 Azithromycin 500 mg/Sodium Chloride 250 ml @ 250 mls/hr Q24H IV 12/13/17 14:00 12/16/17 13:38 (K-Lyte Cl Eff) 25 meq Q12HR PO 12/13/17 14:00 12/16/17 20:21 Potassium Chloride 100 ml @ 50 mls/hr Q2H PRN IV 12/13/17 13:30 Potassium Chloride 100 ml @ 50 mls/hr Q2H PRN IV 12/13/17 13:30 (K-Lyte Cl Eff) 50 meq UNSCH PRN PO 12/13/17 13:30 12/15/17 16:14 Potassium Chloride 100 ml @ 25 mls/hr UNSCH PRN IV 12/13/17 13:30 Potassium Chloride 100 ml @ 50 mls/hr Q2H PRN IV 12/13/17 13:30 Magnesium Sulfate 4 gm/Sodium Chloride 100 ml @ 50 mls/hr UNSCH PRN IV 12/13/17 13:30 (Mag-Ox) 800 mg UNSCH PRN PO 12/13/17 13:30 Magnesium Sulfate 2 gm/Sodium Chloride 100 ml @ 50 mls/hr UNSCH PRN IV 12/13/17 13:30 (K-Phos) 2,000 mg Q4H PRN PO 12/13/17 13:30 Sodium Phosphate 30 mmol/Sodium Chloride 250 ml @ 42 mls/hr UNSCH PRN IV 12/13/17 13:30 (K-Phos) 2,000 mg UNSCH PRN PO/TUBE 12/13/17 13:30 Potassium Phosphate 30 mmol/ Sodium Chloride 260 ml @ 42 mls/hr UNSCH PRN IV 12/13/17 13:30 (Cordarone) 200 mg DAILY PO 12/14/17 09:00 12/16/17 07:52 (Lipitor) 40 mg HS PO 12/13/17 21:00 12/16/17 20:21 (Coreg) 12.5 mg DAILY PO 12/14/17 09:00 12/16/17 07:52 (Depakote Dr) 500 mg TID PO 12/13/17 18:00 12/16/17 17:23 (Neurontin) 300 mg TID PO 12/13/17 18:00 12/16/17 17:22 (Aldactone) 25 mg BID@,18 PO 12/13/17 18:00 12/16/17 17:24 (Plavix) 75 mg DAILY PO 12/13/17 14:15 12/16/17 07:53 (Brethine Inj) 1 mg UNSCH PRN SQ 12/14/17 10:45 (Eliquis) 5 mg DAILY@0600,1800 PO 12/15/17 06:00 12/16/17 17:36 (Lasix Inj) 20 mg Q12H IV PUSH 12/16/17 00:00 12/16/17 13:36 A/P Problem List: (1) Acute cholecystitis ICD Code: K81.0 - Acute cholecystitis Status: Acute (2) Acute respiratory failure ICD Code: J96.00 - Acute respiratory failure, unspecified whether with hypoxia or hypercapnia (3) Acute on chronic systolic (congestive) heart failure ICD Code: I50.23 - Acute on chronic systolic (congestive) heart failure (4) CAD (coronary artery disease) ICD Code: I25.10 - Atherosclerotic heart disease of [place] coronary artery without angina pectoris (5) Atrial fibrillation ICD Code: I48.91 - Unspecified atrial fibrillation Assessment and Plan Acute hypoxemic respiratory failure-resolved Acute on chronic systolic CHF exacerbation Severe sepsis Acute cholecystitis Pneumonia Troponin elevation, possible demand ischemia CAD status post CABG Ischemic cardiomyopathy status post AICD placement Chronic atrial fibrillation on apixaban Obesity Probable COPD NEURO: -Minimize sedation -Continue divalproex and Neurontin, hold duloxetine RESP: -Emergently intubated and placed on mechanical ventilation 12/13 -Extubated 12/14, tolerating well -CT shows bilateral interstitial infiltrates and consolidation predominantly left lower lobe -Continue Zosyn, add azithromycin, f/u sputum culture -DuoNeb every 6 hours scheduled and as needed -Continue IV Solu-Medrol 40 mg every 6 hours CV: -Acute respiratory decompensation seems to be secondary to flash pulmonary edema -Continue IV Lasix 40 mg every 8 hours with potassium replacement, CXR shows improvement in bilateral infiltrates -Aldactone 25 BID -Echo 10/27/17: EF 25-30% with WMA, Cath 10/28/17 severe [place] CAD -Holding lisinopril while getting diuresis -Continue apixaban and Plavix in anticipation of cholecystostomy tube placement -Continue amiodarone, carvedilol, Lipitor GI: -Cholecystostomy drainage tube placement in 24 hours by IR -Continue broad-spectrum antibiotics see ID section -N.p.o. IV famotidine. Diet if ok with general surgery : -Monitor renal function closely. Cabrera catheter-DC today -IV Lasix as above ID: -F/U blood cultures, sputum, biliary fluid culture -s/p IV vancomycin x 1 dose, continue Zosyn. Azithromycin HEME: -Monitor CBC, CMP, coags -Resume apixaban ENDO: -Electrolyte replacement per protocol -Sliding scale insulin if needed PROPH: -Bilateral lower extremity SCDs. Resume Apixaban. IV Famotidine LINES: -Utilize peripheral IVs, central line if needed Problem Qualifiers (1) Acute respiratory failure: Qualified Codes: J96.00 - Acute respiratory failure, unspecified whether with hypoxia or hypercapnia (2) CAD (coronary artery disease): (3) Atrial fibrillation: Qualified Codes: I48.0 - Paroxysmal atrial fibrillation Raúl Tapia MD Dec 16, 2017 15:00
[2017-12-16] MEDS ORDERED: POTASSIUM CHLORIDE 10 MEQ CONTROLLED RELEASE TAB PO ONE (15:20)
[2017-12-16] MEDS: ATORVASTATIN 40 MG TAB PO SCH (20:21)
[2017-12-17] VITALS (14 sets, daily range): BP systolic 148–205; BP diastolic 67–107; PULSE 42–55; RESP 10–23; TEMP 98–98.7; O2SAT 79–100
[2017-12-17] MEDS: methylPREDNISolone SOD SUCC 40 MG/1 ML VIAL IV PUSH SCH ×4 (01:11→20:11)
[2017-12-17] MEDS: PIPERACIL-TAZO 3.375 GM PREMIX 50 ML IV SCH ×5 (01:12→23:27)
[2017-12-17] MEDS: FUROSEMIDE 40 MG/4 ML VIAL IV PUSH SCH ×3 (01:12→23:27)
[2017-12-17] MEDS ORDERED: cloNIDine HCL 0.1 MG TAB PO PRN (03:30)
[2017-12-17] MEDS: APIXABAN 5 MG TABLET PO SCH (04:50)
[2017-12-17] MEDS ORDERED: hydrALAZINE HCL 20 MG/ML VIAL IV PUSH PRN (05:45)
[2017-12-17] MEDS: CHLORHEXIDINE 0.12% (ORAL KIT) 15 ML CUP MT SCH ×2 (08:00→20:00)
[2017-12-17] MEDS: SPIRONOLACTONE 25 MG TAB PO SCH ×2 (08:53→18:00)
[2017-12-17] MEDS: POTASSIUM CHLORIDE 25 MEQ EFFERVESCENT TAB PO SCH ×2 (08:53→20:11)
[2017-12-17] MEDS: CLOPIDOGREL 75 MG TAB PO SCH (08:53)
[2017-12-17] MEDS: DIVALPROEX DR 500 MG TABEC PO SCH ×3 (08:53→18:00)
[2017-12-17] MEDS: CARVEDILOL 12.5 MG TAB PO SCH (08:53)
[2017-12-17] MEDS: AMIODARONE 200 MG TAB PO SCH (08:53)
[2017-12-17] MEDS: DOCUSATE SODIUM 50 MG/SENNA 8.6 MG TAB PO SCH ×2 (08:53→20:12)
[2017-12-17] MEDS: GABAPENTIN 300 MG CAP PO SCH ×3 (08:54→18:00)
[2017-12-17] MEDS: SODIUM CHLORIDE 0.9% FLUSH 10 ML FLUSH IV FLUSH SCH ×2 (09:00→20:10)
--- NOTE | 2017-12-17 13:12 | HHI.PR ---
cc: Sergio Martinez MD Subjective Subjective Notes Doing well Pain better Little appetite Objective Vitals/I&O Vital Signs Date Time Temp Pulse Resp B/P (MAP) Pulse Ox O2 Delivery O2 Flow Rate FiO2 12/17/17 08:22 100 21 12/17/17 08:01 49 15 178/79 (112) 12/17/17 08:00 98.7 12/15/17 20:00 Nasal Cannula 12/14/17 22:00 4.00 Labs Date/Time Source Procedure Growth Status 12/12/17 14:00 Blood Peripheral Aerobic Blood Culture - Final NO GROWTH IN 5 DAYS Complete 12/12/17 14:00 Blood Peripheral Anaerobic Blood Culture - Final NO GROWTH IN 5 DAYS Complete 12/13/17 14:00 Sputum Endotracheal Gram Stain - Final Complete 12/13/17 14:00 Sputum Endotracheal Sputum Culture - Final NO GROWTH IN 48 HOURS. Complete 12/13/17 12:22 Urine Catheterized Urine Urine Culture - Final NO GROWTH IN 48 HOURS. Complete Radiology Last 48 hours Impressions Abdomen/Pelvis CT 12/12/17 0334 Signed Impressions: Service Date/Time: Tuesday, December 12, 2017 04:07 - CONCLUSION: 1. Cholelithiasis and with CT findings of concern for early or mild acute cholecystitis in the proper clinical setting. No duct stone or obstruction. 2. No other acute abnormalities are demonstrated. Ventral hernia containing transverse colon but without evidence of obstruction or strangulation. Aortofemoral bypass changes and appears patent. Iain Barnett MD Chest X-Ray 12/12/17 0141 Signed Impressions: Service Date/Time: Tuesday, December 12, 2017 02:06 - CONCLUSION: No evidence of acute cardiopulmonary disease. Resolved bibasilar consolidation.. Iain Barnett MD Cardiovascular: Regular Lungs: Clear Abdomen: Other (mild tenderness around drain site; angela tube with bag to gravity--- bilious drainage ) Extremities: No edema A/P Assessment and Plan 72 year old male with acute cholecystitis; recent stent placement on OAC -S/p IR placed angela tube -S/p respiratory distress---intubated over the weekend and now extubated-- stable on NC -Tolerating heart healthy diet -Cardiology following -Monitor labs -OOB as tolerated Attending Note - Dr. Martinez Pain improved; tolerating diet. Will sign off; will see in office 2-3 weeks; recall if needed. Primary problem is cardiopulmonary in nature. Will need to be assessed for risk by cardiology in 2-3 weeks before any surgery is contemplated. The exam, history, and the medical decision-making described in the above note were completed with the assistance of the mid-level provider. I reviewed and agree with the findings presented. I attest that I had a [id number] encounter with the patient on the same day, and personally performed and documented my assessment and findings in the medical record. Mag Means/First Víctor EMMANUEL Dec 17, 2017 13:12 Sergio Martinez MD Dec 17, 2017 16:32
[2017-12-17] MEDS: AZITHROMYCIN INJ 500 MG in SODIUM CHLOR 0.9% 250 ML INJ 250 ML IV SCH (14:00)
[2017-12-17] MEDS ORDERED: RESP: ALBUTEROL 2.5 MG/IPRATROPIUM 0.5 MG NEB (PRN) NEB (14:15)
[2017-12-17] MEDS: LISINOPRIL 10 MG TAB PO SCH (14:15)
[2017-12-17 16:48] LABS: AUTOMATED NEUTROPHIL # 14.5 TH/MM3 (1.8-7.7); BASOPHIL % 0.1 % (0.0-2.0); HEMATOCRIT 33.2 % (39.0-51.0); HEMOGLOBIN 11.4 GM/DL (13.0-17.0); LYMPH % 7.1 % (9.0-44.0); LYMPHOCYTE # 1.2 TH/MM3 (1.0-4.8); MEAN CELL VOLUME 93.2 FL (80.0-100.0); MEAN CORPUSCULAR HGB CONC 34.3 % (32.0-36.0); MEAN PLATELET VOLUME 8.1 FL (7.0-11.0); MONO % 5.4 % (0.0-8.0); MONOCYTE # 0.9 TH/MM3 (0-0.9); NEUT % 87.4 % (16.0-70.0); PLATELET COUNT 263 TH/MM3 (150-450); RED BLOOD COUNT 3.57 MIL/MM3 (4.50-5.90); RED CELL DISTRIBUTION WIDTH 14.9 % (11.6-17.2); WHITE BLOOD COUNT 16.7 TH/MM3 (4.0-11.0)
[2017-12-17 17:09] LABS: ALBUMIN 2.3 GM/DL (3.4-5.0); AST (GOT) 12 U/L (15-37); BICARBONATE 28.8 MEQ/L (21.0-32.0); BLOOD UREA NITROGEN 42 MG/DL (7-18); CALCIUM 8.2 MG/DL (8.5-10.1); CHLORIDE 104 MEQ/L (98-107); CREATININE 1.38 MG/DL (0.60-1.30); GLOMERULAR FILTRATION RATE 51 ML/MIN (>89); GLUCOSE,RANDOM 204 MG/DL (74-106); MAGNESIUM 2.3 MG/DL (1.5-2.5); SODIUM (NA) 141 MEQ/L (136-145)
[2017-12-17 17:12] LABS: ALKALINE PHOSPHATASE 46 U/L (45-117); ALT (GPT) 31 U/L (12-78); PHOSPHORUS 2.3 MG/DL (2.5-4.9); TOTAL BILIRUBIN ADULT 0.3 MG/DL (0.2-1.0); TOTAL PROTEIN 6.3 GM/DL (6.4-8.2)
--- NOTE | 2017-12-17 17:12 | HHI.PR ---
Subjective Remarks The patient complaints of chest tightness although he satting 100% o room air. The patient gets very agitated and states that he demands to have a breathing treatment I start yelling at this provider. Objective Vitals Vital Signs Date Time Temp Pulse Resp B/P (MAP) Pulse Ox O2 Delivery O2 Flow Rate FiO2 12/17/17 16:00 98.7 51 16 149/67 (94) 100 12/17/17 16:00 98.0 54 16 158/68 (98) 100 12/17/17 16:00 46 12/17/17 12:00 46 12/17/17 12:00 98.7 51 16 149/67 (94) 100 12/17/17 08:22 100 21 12/17/17 08:01 49 15 178/79 (112) 100 12/17/17 08:00 98.7 46 17 171/107 (128) 100 12/17/17 08:00 51 16 100 12/17/17 08:00 98.0 49 18 178/79 (112) 100 12/17/17 08:00 46 12/17/17 07:30 42 18 158/72 (100) 100 12/17/17 07:25 44 10 172/76 (108) 99 12/17/17 07:04 46 11 205/82 (123) 100 12/17/17 07:01 52 17 204/89 (127) 98 12/17/17 07:00 55 23 79 12/17/17 04:00 98.7 46 17 171/107 (128) 100 12/17/17 04:00 46 12/17/17 00:00 51 12/17/17 00:00 98.7 51 21 176/79 (111) 99 12/16/17 20:00 52 12/16/17 20:00 97.7 52 18 154/70 (98) 99 12/16/17 19:47 99 21 I/O 12/16/17 12/16/17 12/16/17 12/17/17 12/17/17 12/17/17 07:00 15:00 23:00 07:00 15:00 23:00 Intake Total 340 ml 50 ml 970 ml 580 ml Output Total 550 ml 960 ml 880 ml Balance -210 ml 50 ml 10 ml -300 ml Intake Oral 240 ml 720 ml 480 ml IV Total 100 ml 50 ml 250 ml 100 ml Output Urine Total 400 ml 900 ml 850 ml Drainage Total 150 ml 60 ml 30 ml # Bowel Movements 1 1 3 Result Diagram: 12/17/17 1553 12/17/17 1553 Imaging Last 72 hours Impressions Chest X-Ray 12/15/17 0000 Signed Impressions: Service Date/Time: Friday, December 15, 2017 10:02 - CONCLUSION: Interval extubation and continued improvement in aeration. Iain Ontiveros MD Objective Remarks Awake and alert In severe respiratory distress There is decreased breath sounds in bilateral lung san, no wheezing, bilateral rales in bilateral lower lung san. Abdomen is soft, tender to palpation of right upper quadrant, no rebound tenderness, no guarding. No edema in bilateral extremities. Medications and IVs Current Medications Medications (Trade) Dose Ordered Sig/Eliot Route Start Time Stop Time Status Last Admin (NS Flush) 2 ml UNSCH PRN IV FLUSH 12/12/17 06:00 (NS Flush) 2 ml BID IV FLUSH 12/12/17 09:00 12/17/17 20:10 (Tylenol) 650 mg Q4H PRN PO 12/12/17 06:00 (Zofran Inj) 4 mg Q6H PRN IVP 12/12/17 06:00 (Narcan Inj) 0.4 mg UNSCH PRN IV PUSH 12/12/17 06:00 (Lillian-Colace) 1 tab BID PO 12/12/17 09:00 12/17/17 08:53 (Milk Of Magnesia Liq) 30 ml Q12H PRN PO 12/12/17 06:00 (Senokot) 17.2 mg Q12H PRN PO 12/12/17 06:00 (Dulcolax Supp) 10 mg DAILY PRN RECTAL 12/12/17 06:00 (Lactulose Liq) 30 ml DAILY PRN PO 12/12/17 06:00 Piperacillin Sod/ Tazobactam Sod 50 ml @ 100 mls/hr Q6H IV 12/12/17 06:00 12/17/17 18:00 (Morphine Inj) 2 mg Q4H PRN IV 12/12/17 11:45 12/14/17 23:10 ([place] 5-325 Mg) 1 tab Q6H PRN PO 12/12/17 11:45 12/16/17 20:22 ([place] 5-325 Mg) 2 tab Q6H PRN PO 12/12/17 11:45 12/17/17 20:12 (Peridex 0.12% Liq) 15 ml BID@08,20 MT 12/13/17 20:00 12/17/17 08:00 Azithromycin 500 mg/Sodium Chloride 250 ml @ 250 mls/hr Q24H IV 12/13/17 14:00 12/17/17 14:00 (K-Lyte Cl Eff) 25 meq Q12HR PO 12/13/17 14:00 12/17/17 20:11 Potassium Chloride 100 ml @ 50 mls/hr Q2H PRN IV 12/13/17 13:30 Potassium Chloride 100 ml @ 50 mls/hr Q2H PRN IV 12/13/17 13:30 (K-Lyte Cl Eff) 50 meq UNSCH PRN PO 12/13/17 13:30 12/15/17 16:14 Potassium Chloride 100 ml @ 25 mls/hr UNSCH PRN IV 12/13/17 13:30 Potassium Chloride 100 ml @ 50 mls/hr Q2H PRN IV 12/13/17 13:30 Magnesium Sulfate 4 gm/Sodium Chloride 100 ml @ 50 mls/hr UNSCH PRN IV 12/13/17 13:30 (Mag-Ox) 800 mg UNSCH PRN PO 12/13/17 13:30 Magnesium Sulfate 2 gm/Sodium Chloride 100 ml @ 50 mls/hr UNSCH PRN IV 12/13/17 13:30 (K-Phos) 2,000 mg Q4H PRN PO 12/13/17 13:30 Sodium Phosphate 30 mmol/Sodium Chloride 250 ml @ 42 mls/hr UNSCH PRN IV 12/13/17 13:30 (K-Phos) 2,000 mg UNSCH PRN PO/TUBE 12/13/17 13:30 Potassium Phosphate 30 mmol/ Sodium Chloride 260 ml @ 42 mls/hr UNSCH PRN IV 12/13/17 13:30 (Cordarone) 200 mg DAILY PO 12/14/17 09:00 12/17/17 08:53 (Lipitor) 40 mg HS PO 12/13/17 21:00 12/17/17 20:12 (Coreg) 12.5 mg DAILY PO 12/14/17 09:00 12/17/17 08:53 (Depakote Dr) 500 mg TID PO 12/13/17 18:00 12/17/17 18:00 (Neurontin) 300 mg TID PO 12/13/17 18:00 12/17/17 18:00 (Aldactone) 25 mg BID@,18 PO 12/13/17 18:00 12/17/17 18:00 (Plavix) 75 mg DAILY PO 12/13/17 14:15 12/17/17 08:53 (Brethine Inj) 1 mg UNSCH PRN SQ 12/14/17 10:45 (Lasix Inj) 20 mg Q12H IV PUSH 12/16/17 00:00 12/17/17 12:40 (Catapres) 0.1 mg Q6H PRN PO 12/17/17 03:30 12/17/17 03:41 (Apresoline Inj) 10 mg Q30M PRN IV PUSH 12/17/17 05:45 (SoluMEDROL INJ) 40 mg Q12HR IV PUSH 12/17/17 21:00 12/17/17 20:11 (Duoneb Neb) 1 ampule Q2HR NEB PRN NEB 12/17/17 14:15 12/17/17 17:02 (Prinivil) 10 mg DAILY PO 12/17/17 14:15 12/17/17 14:15 (Flomax) 0.8 mg HS PO 12/17/17 21:00 12/17/17 20:11 (Pravachol) 40 mg DAILY PO 12/18/17 09:00 (SEROquel) 25 mg BID@09,12 PO 12/18/17 09:00 A/P Problem List: (1) Acute cholecystitis ICD Code: K81.0 - Acute cholecystitis Status: Acute (2) Acute respiratory failure ICD Code: J96.00 - Acute respiratory failure, unspecified whether with hypoxia or hypercapnia (3) Acute on chronic systolic (congestive) heart failure ICD Code: I50.23 - Acute on chronic systolic (congestive) heart failure (4) CAD (coronary artery disease) ICD Code: I25.10 - Atherosclerotic heart disease of [place] coronary artery without angina pectoris (5) Atrial fibrillation ICD Code: I48.91 - Unspecified atrial fibrillation Assessment and Plan Acute hypoxemic respiratory failure-resolved Acute on chronic systolic CHF exacerbation Severe sepsis Acute cholecystitis Pneumonia Troponin elevation, possible demand ischemia CAD status post CABG Ischemic cardiomyopathy status post AICD placement Chronic atrial fibrillation on apixaban Obesity Probable COPD NEURO: -Minimize sedation -Continue divalproex and Neurontin, hold duloxetine RESP: -Emergently intubated and placed on mechanical ventilation 12/13 -Extubated 12/14, tolerating well -CT shows bilateral interstitial infiltrates and consolidation predominantly left lower lobe -Continue Zosyn, add azithromycin, f/u sputum culture -DuoNeb every 6 hours scheduled and as needed -Continue IV Solu-Medrol 40 mg every 6 hours -Taper Solu-Medrol dose down to 40 mg IV every 12 hours. CV: -Acute respiratory decompensation seems to be secondary to flash pulmonary edema -Continue IV Lasix 40 mg every 8 hours with potassium replacement, CXR shows improvement in bilateral infiltrates -Aldactone 25 BID -Echo 10/27/17: EF 25-30% with WMA, Cath 10/28/17 severe [place] CAD -Holding lisinopril while getting diuresis -Continue apixaban and Plavix in anticipation of cholecystostomy tube placement -Continue amiodarone, carvedilol, Lipitor -We will consult cardiology since patient is complaining of chest tightness and previously had elevated troponins. GI: -Cholecystostomy drainage tube placement in 24 hours by IR -Continue broad-spectrum antibiotics see ID section -N.p.o. IV famotidine. Diet if ok with general surgery -Discussed the case with Dr. Martinez who cleared the patient to be discharged with a cholecystostomy tube and follow-up with him in 3 weeks. Recommended cardiology consultation for further recommendations regarding when anticoagulation can be discontinued. : -Monitor renal function closely. Cabrera catheter-DC today -IV Lasix as above ID: -F/U blood cultures, sputum, biliary fluid culture -s/p IV vancomycin x 1 dose, continue Zosyn. Azithromycin HEME: -Monitor CBC, CMP, coags -Continue apixaban. ENDO: -Electrolyte replacement per protocol -Sliding scale insulin if needed PROPH: -Bilateral lower extremity SCDs. Resume Apixaban. IV Famotidine LINES: -Utilize peripheral IVs, central line if needed Discharge Planning Continue to monitor in intensive care unit for now. Problem Qualifiers (1) Acute respiratory failure: Qualified Codes: J96.00 - Acute respiratory failure, unspecified whether with hypoxia or hypercapnia (2) CAD (coronary artery disease): (3) Atrial fibrillation: Qualified Codes: I48.0 - Paroxysmal atrial fibrillation Raúl Tapia MD Dec 17, 2017 17:12
[2017-12-17 17:33] LABS: BANDS 7 % (0-6); LYMPHOCYTES 8 % (9-44); MONOCYTES 6 % (0-8); NEUTROPHIL # MANUAL DIFF 14.4 TH/MM3 (1.8-7.7); POLYS (SEG NEUTROPHILS) 78 % (16-70); PROMYELOCYTES 1 % (0-0)
[2017-12-17] MEDS: TAMSULOSIN HCL 0.4 MG CAP PO SCH (20:11)
[2017-12-17] MEDS: ATORVASTATIN 40 MG TAB PO SCH (20:12)
[2017-12-17] MEDS: ACETAMINOPHEN/HYDROcodone 325 MG/5 MG TAB PO PRN (20:12)
--- NOTE | 2017-12-17 20:17 | MB ---
cc: Alvarez Livingston MD DATE OF CONSULT: 12/17/2017 HISTORY OF PRESENT ILLNESS: Eliseo is a 72-year-old gentleman with history coronary disease status post PCI. Currently, he is being followed by Dr. Martinez for consideration of cholecystectomy. Patient states to me that he had a PCI a year or 2 ago, but after discussing the case with Dr. Martinez, apparently, he told Dr. Martinez it was possibly in August. Patient complains of left-sided chest pain and severe shortness of breath; otherwise, denies any fever, chills, cough, GI or bleeding, PND, orthopnea, syncope or dizziness. He presented on 12/12, which he complained of right upper quadrant pain. PAST MEDICAL HISTORY: Includes coronary artery bypass graft procedure, history of coronary thrombectomy, depression, anxiety, congestive heart failure, hyperlipidemia, hypertension, lower extremity neuropathy, bipolar disorder, pacemaker placement, screws in the left shoulder, PCI in 05/2017. SOCIAL HISTORY: Denies tobacco or alcohol use. ALLERGIES: NONE. MEDICATIONS PRIOR TO ADMISSION: Potassium, furosemide 20 b.i.d., Eliquis 5 mg b.i.d., lisinopril 10 mg daily, Coreg 12.5 daily, atorvastatin 40 at bedtime, ibuprofen 400 q. 8 hours, multivitamin, simvastatin 20 daily, divalproex, duloxetine, tamsulosin, Plavix 75 daily, amiodarone 200 daily, gabapentin and tramadol. MEDICATIONS IN THE HOSPITAL: Pravastatin 40 daily, Seroquel 25 b.i.d., methylprednisolone 40 q. 12 hours, Flomax 0.8 at bedtime, albuterol, lisinopril 10 daily, Eliquis 5 mg daily, amiodarone 200 daily, Coreg 12.5 daily, atorvastatin 40 at bedtime, Depakote 500 t.i.d., gabapentin 300 t.i.d., 25 b.i.d., 75 daily, azithromycin IV q. 24 hours, potassium bicarb, potassium chloride supplementation, piperacillin/tazobactam. PHYSICAL EXAMINATION: VITAL SIGNS: Pulse ranges between 42 and 51, temperature 98.7, respiratory rate 16, blood pressure 129/67, sats 100% on room air. GENERAL: He is alert and oriented x3, in no acute distress. NECK: Supple, no JVD, no bruit. CARDIOVASCULAR: S1, S2. No murmurs, rubs, gallops. LUNGS: Clear to auscultation bilaterally. ABDOMEN: Soft, nontender, nondistended with positive bowel sounds. EXTREMITIES: No lower extremity edema. IMAGING STUDIES: Chest x-ray shows interval extubation and continued improvement in aeration. Head CT on 12/12/2017 shows significant changes with mild small vessel ischemic periventricular white matter demyelination, mild ventriculomegaly which might be slightly out of proportion to a degree of hypertrophy. Abdominopelvic CT on 12/12/2017: Cholelithiasis and CT findings concerning for earlier mild acute cholecystitis, ventral hernia containing transverse colon, aortofemoral changes and appears "patent." CT pulmonary angiogram, 12/13/2017: No evidence of pulmonary embolisms, bilateral increase interstitial markings suggestive of pulmonary edema, scattered bilateral pulmonary infiltrates. Percutaneous cholangiogram: Uncomplicated percutaneous cholecystostomy as above. EKG on 12/13/2017 shows sinus tachycardia with left bundle branch block, prolonged QT interval. LABORATORY DATA: White count 16.7, hemoglobin 11.4, hematocrit 33.2, platelet count 263. Blood gas 12/13/2017; pH 7.30, pO2 of 47, pCO2 at 182 on 100% assist control. INR 1.1. Sodium 141, potassium 4.0, chloride 104, bicarb 28.8, BUN 42, creatinine is 1.38. Troponin is 0.39, followed by 0.35. Albumin 2.3. ASSESSMENT: The patient has the following diagnoses: 1. Non-ST elevated myocardial infarction. 2. Congestive heart failure. 3. Coronary disease. 4. Chronic renal insufficiency. 5. Status post permanent pacemaker. 6. Cholecystitis. 7. Cholelithiasis. 8. Hypokalemia. 9. Anemia. 10. Elevated white count. 11. Left bundle branch block. 12. Respiratory failure. 13. Hypoxia. 14. Severe dyspnea. 15. Cardiomyopathy. 16. Chronic atrial fibrillation. DISCUSSION: The patient had a left heart catheterization on 10/28/2017; patent stents were noted in the right coronary artery and right PDA, 50% distal left main, diffusely diseased proximal LAD, 50% ostial small ramus vessel, 70% proximal left circumflex leaving the LAD patent, diffusely diseased LAD, occluded vein graft to the right, occluded vein graft to the circumflex. Note, patient is having active chest pain and severe shortness of breath, I am going to review the films. Could consider PCI of the left circumflex vessel, we will need to hold the patient's Eliquis. I have discussed the case with Dr. Martinez and he states that cholecystectomy is not urgently indicated. I will also recommend a left heart catheterization to the patient. I will place him on the catheterization schedule. Again, if I think the left circumflex vessel will improve his symptoms or LV function, I will consider PCI of the left circumflex based on my review of his films done by Dr. Hoff on 10/28/2017. Otherwise, agree with Plavix, lisinopril 10, amiodarone 200 daily, pravastatin, Coreg. MD RAO [place]/cc , 06:56 PM , 08:15 PM
[2017-12-18] VITALS (29 sets, daily range): BP systolic 108–183; BP diastolic 55–75; PULSE 42–54; RESP 14–38; TEMP 97.4–98.6; O2SAT 94–100
[2017-12-18 04:21] LABS: AUTOMATED NEUTROPHIL # 15.9 TH/MM3 (1.8-7.7); BASOPHIL % 0.1 % (0.0-2.0); HEMATOCRIT 34.4 % (39.0-51.0); HEMOGLOBIN 11.6 GM/DL (13.0-17.0); LYMPH % 8.5 % (9.0-44.0); LYMPHOCYTE # 1.6 TH/MM3 (1.0-4.8); MEAN CELL VOLUME 92.9 FL (80.0-100.0); MEAN CORPUSCULAR HEMOGLOBIN 31.4 PG (27.0-34.0); MEAN CORPUSCULAR HGB CONC 33.8 % (32.0-36.0); MEAN PLATELET VOLUME 7.6 FL (7.0-11.0); MONO % 4.3 % (0.0-8.0); MONOCYTE # 0.8 TH/MM3 (0-0.9); NEUT % 87.1 % (16.0-70.0); PLATELET COUNT 262 TH/MM3 (150-450); WHITE BLOOD COUNT 18.3 TH/MM3 (4.0-11.0)
[2017-12-18 05:08] LABS: ALBUMIN 2.5 GM/DL (3.4-5.0); ALKALINE PHOSPHATASE 47 U/L (45-117); ALT (GPT) 29 U/L (12-78); AST (GOT) 12 U/L (15-37); BICARBONATE 30.2 MEQ/L (21.0-32.0); BLOOD UREA NITROGEN 45 MG/DL (7-18); CALCIUM 8.5 MG/DL (8.5-10.1); CHLORIDE 106 MEQ/L (98-107); CREATININE 1.14 MG/DL (0.60-1.30); GLOMERULAR FILTRATION RATE 63 ML/MIN (>89); GLUCOSE,RANDOM 141 MG/DL (74-106); MAGNESIUM 2.5 MG/DL (1.5-2.5); PHOSPHORUS 3.6 MG/DL (2.5-4.9); SODIUM (NA) 143 MEQ/L (136-145); TOTAL BILIRUBIN ADULT 0.3 MG/DL (0.2-1.0); TOTAL PROTEIN 6.4 GM/DL (6.4-8.2)
[2017-12-18] MEDS: PIPERACIL-TAZO 3.375 GM PREMIX 50 ML IV SCH ×3 (05:32→18:12)
[2017-12-18] MEDS: CHLORHEXIDINE 0.12% (ORAL KIT) 15 ML CUP MT SCH ×2 (08:00→20:00)
[2017-12-18] MEDS: methylPREDNISolone SOD SUCC 40 MG/1 ML VIAL IV PUSH SCH ×2 (08:35→20:59)
[2017-12-18] MEDS: DIVALPROEX DR 500 MG TABEC PO SCH ×3 (08:36→18:12)
[2017-12-18] MEDS: PRAVASTATIN SOD 40 MG TAB PO SCH (08:37)
[2017-12-18] MEDS: QUEtiapine FUMARATE 25 MG TAB PO SCH ×2 (08:37→13:11)
[2017-12-18] MEDS: GABAPENTIN 300 MG CAP PO SCH ×3 (08:37→18:12)
[2017-12-18] MEDS: LISINOPRIL 10 MG TAB PO SCH (08:37)
[2017-12-18] MEDS: CLOPIDOGREL 75 MG TAB PO SCH (08:37)
[2017-12-18] MEDS: AMIODARONE 200 MG TAB PO SCH (08:38)
[2017-12-18] MEDS: CARVEDILOL 12.5 MG TAB PO SCH (08:38)
[2017-12-18] MEDS: POTASSIUM CHLORIDE 25 MEQ EFFERVESCENT TAB PO SCH (08:39)
[2017-12-18] MEDS: SPIRONOLACTONE 25 MG TAB PO SCH ×2 (08:41→18:12)
[2017-12-18] MEDS: SODIUM CHLORIDE 0.9% FLUSH 10 ML FLUSH IV FLUSH SCH ×2 (08:43→20:59)
[2017-12-18] MEDS: DOCUSATE SODIUM 50 MG/SENNA 8.6 MG TAB PO SCH ×2 (08:43→20:59)
[2017-12-18 09:00] LABS: CORRECTED NUCLEATED RBC 1 /100 WBC (0-0); LYMPHOCYTES 12 % (9-44); MONOCYTES 3 % (0-8); MYELOCYTES 2 % (0-0); NEUTROPHIL # MANUAL DIFF 15.6 TH/MM3 (1.8-7.7); NUCLEATED RED BLOOD CELL 1 (0-0); POLYS (SEG NEUTROPHILS) 83 % (16-70)
--- NOTE | 2017-12-18 12:07 | HHI.PR ---
Subjective Remarks Deferred entry, the patient was seen earlier at 9:30 AM. Patient states feels better. Denies sob, had chest pain yesterday. Objective Vitals Vital Signs Date Time Temp Pulse Resp B/P (MAP) Pulse Ox O2 Delivery O2 Flow Rate FiO2 12/18/17 08:00 97.7 42 21 158/68 (98) 100 12/18/17 08:00 42 12/18/17 07:39 100 21 12/18/17 04:00 98.5 45 14 162/67 (98) 100 12/18/17 04:00 45 12/18/17 00:00 47 12/18/17 00:00 98.6 47 19 150/63 (92) 97 12/17/17 21:26 99 21 12/17/17 20:00 98.4 54 21 148/77 (100) 100 12/17/17 20:00 54 12/17/17 16:00 98.7 51 16 149/67 (94) 100 12/17/17 16:00 98.0 54 16 158/68 (98) 100 12/17/17 16:00 46 12/17/17 12:00 46 12/17/17 12:00 98.7 51 16 149/67 (94) 100 I/O 12/17/17 12/17/17 12/17/17 12/18/17 12/18/17 12/18/17 07:00 15:00 23:00 07:00 15:00 23:00 Intake Total 580 ml 870 ml 200 ml Output Total 880 ml 880 ml 1100 ml Balance -300 ml -10 ml -900 ml Intake Oral 480 ml 520 ml 100 ml IV Total 100 ml 350 ml 100 ml Output Urine Total 850 ml 850 ml 1100 ml Drainage Total 30 ml 30 ml # Bowel Movements 3 2 Result Diagram: 12/18/17 0345 12/18/17 0345 Imaging Last Impressions Chest X-Ray 12/15/17 0000 Signed Impressions: Service Date/Time: Friday, December 15, 2017 10:02 - CONCLUSION: Interval extubation and continued improvement in aeration. Iain Ontiveros MD Percutaneous Cholangiogram 12/14/17 0000 Signed Impressions: Service Date/Time: Thursday, December 14, 2017 11:54 - CONCLUSION: Uncomplicated percutaneous cholecystostomy as above. Iain Ontiveros MD CT Angiography 12/13/17 0000 Signed Impressions: Service Date/Time: Wednesday, December 13, 2017 12:48 - CONCLUSION: 1. No evidence of pulmonary embolism 2. Bilateral increased interstitial markings suggestive of pulmonary edema. 3. Scattered bilateral pulmonary infiltrates Gene Ferraro MD Abdomen/Pelvis CT 12/12/17 0334 Signed Impressions: Service Date/Time: Tuesday, December 12, 2017 04:07 - CONCLUSION: 1. Cholelithiasis and with CT findings of concern for early or mild acute cholecystitis in the proper clinical setting. No duct stone or obstruction. 2. No other acute abnormalities are demonstrated. Ventral hernia containing transverse colon but without evidence of obstruction or strangulation. Aortofemoral bypass changes and appears patent. Iain Barnett MD Head CT 12/12/17 0000 Signed Impressions: Service Date/Time: Tuesday, December 12, 2017 18:42 - CONCLUSION: 1. Senescent changes with mild small vessel ischemic periventricular white matter demyelination. 2. Mild ventriculomegaly which may be slightly out of portion to the degree of atrophy. Clinical correlation for normal pressure hydrocephalus is recommended. Dino Coyne MD Objective Remarks Awake and alert nad Clear lungs BL S1S2 (+) RRR, no MRG Abdomen is soft, tender to palpation of right upper quadrant, no rebound tenderness, no guarding. No edema in bilateral extremities. Medications and IVs Current Medications Medications (Trade) Dose Ordered Sig/Eliot Route Start Time Stop Time Status Last Admin (NS Flush) 2 ml UNSCH PRN IV FLUSH 12/12/17 06:00 (NS Flush) 2 ml BID IV FLUSH 12/12/17 09:00 12/18/17 08:43 (Tylenol) 650 mg Q4H PRN PO 12/12/17 06:00 (Zofran Inj) 4 mg Q6H PRN IVP 12/12/17 06:00 (Narcan Inj) 0.4 mg UNSCH PRN IV PUSH 12/12/17 06:00 (Lillian-Colace) 1 tab BID PO 12/12/17 09:00 12/17/17 08:53 (Milk Of Magnesia Liq) 30 ml Q12H PRN PO 12/12/17 06:00 (Senokot) 17.2 mg Q12H PRN PO 12/12/17 06:00 (Dulcolax Supp) 10 mg DAILY PRN RECTAL 12/12/17 06:00 (Lactulose Liq) 30 ml DAILY PRN PO 12/12/17 06:00 Piperacillin Sod/ Tazobactam Sod 50 ml @ 100 mls/hr Q6H IV 12/12/17 06:00 12/18/17 05:32 (Morphine Inj) 2 mg Q4H PRN IV 12/12/17 11:45 12/14/17 23:10 (Mchenry 5-325 Mg) 1 tab Q6H PRN PO 12/12/17 11:45 12/16/17 20:22 (Mchenry 5-325 Mg) 2 tab Q6H PRN PO 12/12/17 11:45 12/17/17 20:12 (Peridex 0.12% Liq) 15 ml BID@08,20 MT 12/13/17 20:00 12/17/17 08:00 Azithromycin 500 mg/Sodium Chloride 250 ml @ 250 mls/hr Q24H IV 12/13/17 14:00 12/17/17 14:00 Potassium Chloride 100 ml @ 50 mls/hr Q2H PRN IV 12/13/17 13:30 Potassium Chloride 100 ml @ 50 mls/hr Q2H PRN IV 12/13/17 13:30 (K-Lyte Cl Eff) 50 meq UNSCH PRN PO 12/13/17 13:30 12/15/17 16:14 Potassium Chloride 100 ml @ 25 mls/hr UNSCH PRN IV 12/13/17 13:30 Potassium Chloride 100 ml @ 50 mls/hr Q2H PRN IV 12/13/17 13:30 Magnesium Sulfate 4 gm/Sodium Chloride 100 ml @ 50 mls/hr UNSCH PRN IV 12/13/17 13:30 (Mag-Ox) 800 mg UNSCH PRN PO 12/13/17 13:30 Magnesium Sulfate 2 gm/Sodium Chloride 100 ml @ 50 mls/hr UNSCH PRN IV 12/13/17 13:30 (K-Phos) 2,000 mg Q4H PRN PO 12/13/17 13:30 Sodium Phosphate 30 mmol/Sodium Chloride 250 ml @ 42 mls/hr UNSCH PRN IV 12/13/17 13:30 (K-Phos) 2,000 mg UNSCH PRN PO/TUBE 12/13/17 13:30 Potassium Phosphate 30 mmol/ Sodium Chloride 260 ml @ 42 mls/hr UNSCH PRN IV 12/13/17 13:30 (Cordarone) 200 mg DAILY PO 12/14/17 09:00 12/17/17 08:53 (Lipitor) 40 mg HS PO 12/13/17 21:00 12/17/17 20:12 (Coreg) 12.5 mg DAILY PO 12/14/17 09:00 12/17/17 08:53 (Depakote Dr) 500 mg TID PO 12/13/17 18:00 12/18/17 08:36 (Neurontin) 300 mg TID PO 12/13/17 18:00 12/18/17 08:37 (Aldactone) 25 mg BID@18 PO 12/13/17 18:00 12/18/17 08:41 (Plavix) 75 mg DAILY PO 12/13/17 14:15 12/18/17 08:37 (Brethine Inj) 1 mg UNSCH PRN SQ 12/14/17 10:45 (Lasix Inj) 20 mg Q12H IV PUSH 12/16/17 00:00 12/17/17 23:27 (Catapres) 0.1 mg Q6H PRN PO 12/17/17 03:30 12/17/17 03:41 (Apresoline Inj) 10 mg Q30M PRN IV PUSH 12/17/17 05:45 (SoluMEDROL INJ) 40 mg Q12HR IV PUSH 12/17/17 21:00 12/18/17 08:35 (Duoneb Neb) 1 ampule Q2HR NEB PRN NEB 12/17/17 14:15 12/17/17 17:02 (Prinivil) 10 mg DAILY PO 12/17/17 14:15 12/18/17 08:37 (Flomax) 0.8 mg HS PO 12/17/17 21:00 12/17/17 20:11 (Pravachol) 40 mg DAILY PO 12/18/17 09:00 12/18/17 08:37 (SEROquel) 25 mg BID@09,12 PO 12/18/17 09:00 12/18/17 08:37 A/P Problem List: (1) Acute cholecystitis ICD Code: K81.0 - Acute cholecystitis Status: Acute Plan: Patient evaluated by general surgery. CT abdomen and pelvis reviewed showed cholelithiasis concern for cholecystitis. Placed on clear liquid diet by general surgery, pain control provided with IV narcotics. Patient has history of CAD with cardiac stent placement on Plavix and atrial fibrillation on Eliquis, cardiology consulted for clearance for surgery. Cardiology evaluated patient, as per records Plavix continued. Eliquis hed. Patient underwent cholecystostomy drainage tube placement by IR. Broad-spectrum antibiotics as per ID. Discussed case with Dr. Martinez who cleared the patient to be discharged with cholecystostomy tube follow-up in 3 weeks with him. However Dr. Martinez recommended cardiology consultation for further recommendations regarding treatment with anticoagulation and advise regarding of when it can be hold for surgery. (2) Acute respiratory failure ICD Code: J96.00 - Acute respiratory failure, unspecified whether with hypoxia or hypercapnia Plan: Patient became short of breath and hypoxemic into the mid 80s initially, rapidly declining, agitated. The patient was administered 40 mg of IV Lasix and 125 mg IV Solu-Medrol. Patient placed on nonrebreather mask however patient very agitated refusing to use it. X-ray reviewed by me showed pulmonary congestion and possible infiltrate in the right lower lung field. EKG showed a paced rhythm. ABG showed a pH of 7.34, PCO2 48 and PO2 59. Rapid response was activated and the patient was transferred emergently to the intensive care unit. The patient was intubated emergently, and mechanically ventilated on 12/13, extubated 12/14 and room air. Patient with IV Solu-Medrol which has been tapered. DC Solu-Medrol and start the patient oral prednisone taper. (3) Acute on chronic systolic (congestive) heart failure ICD Code: I50.23 - Acute on chronic systolic (congestive) heart failure Plan: 2D echocardiogram performed on October 27, 2017 showed an ejection fraction of 25-30%. Chest x-ray shows pulmonary congestion bilaterally. Suspect pulmonary edema is possibly responsible for part of the acute respiratory decline. Continue Lasix 20 mg IV every 12 hours. (4) CAD (coronary artery disease) ICD Code: I25.10 - Atherosclerotic heart disease of [place] coronary artery without angina pectoris Plan: Radiology consulted. Cleared patient for surgical procedure. Patient had a catheterization in October [address] Hoff which showed patent LUI to LAD graft to occluded vein grafts which were medically managed. Cardiology reconsulted on 12/17/17. Dr. Livingston evaluated the patient. As per medical records obtained from [facility] Dr. Livingston states that the patient had a left heart catheterization on 03/07/18 which showed severe CAD with patent stents. Given the patient was complaining of chest pain and shortness of breath the patient will go for cardiac cath today 12/31/17. Continue Plavix, lisinopril 10 mg, amiodarone 200 mg p.o. daily, pravastatin and Coreg. (5) Atrial fibrillation ICD Code: I48.91 - Unspecified atrial fibrillation Plan: Currently in normal sinus rhythm, however patient very tachycardic at this moment. EKG obtained which showed sinus tachycardia (6) HTN (hypertension) ICD Code: I10 - Essential (primary) hypertension Plan: Blood pressure slightly elevated. The patient is on lisinopril 10 minutes p.o. daily. Increase lisinopril to 20 mg p.o. daily. Assessment and Plan VT prophylaxis: SCDs, currently on Plavix, POP Properties. No chemoprophylaxis given recent cholecystostomy tubes. Discharge Planning Continue to monitor in intensive care unit for now. Problem Qualifiers (1) Acute respiratory failure: Qualified Codes: J96.00 - Acute respiratory failure, unspecified whether with hypoxia or hypercapnia (2) CAD (coronary artery disease): (3) Atrial fibrillation: Qualified Codes: I48.0 - Paroxysmal atrial fibrillation (4) HTN (hypertension): Qualified Codes: I10 - Essential (primary) hypertension Raúl Tapia MD Dec 18, 2017 12:07
[2017-12-18] MEDS: AZITHROMYCIN INJ 500 MG in SODIUM CHLOR 0.9% 250 ML INJ 250 ML IV SCH (13:10)
[2017-12-18] MEDS: ACETAMINOPHEN/HYDROcodone 325 MG/5 MG TAB PO PRN (13:10)
[2017-12-18] MEDS: FUROSEMIDE 40 MG/4 ML VIAL IV PUSH SCH (13:11)
[2017-12-18] MEDS ORDERED: HEPARIN-NS/PF FLUSH BAG 2,000 ML IV FLUSH ONE (16:25)
[2017-12-18] MEDS ORDERED: HEPARIN SODIUM - IV 10,000 UNITS/10 ML VIAL ONE (16:25)
[2017-12-18] MEDS ORDERED: MIDAZOLAM HCL 2 MG/2 ML VIAL ONE (16:25)
[2017-12-18] MEDS ORDERED: NITROGLYCERIN INJ 5 ML ONE (16:25)
[2017-12-18] MEDS ORDERED: LIDOCAINE HCL 1% PF 30 ML VIAL ONE (17:00)
[2017-12-18] MEDS ORDERED: ASPIRIN 81 MG CHEW TAB ONE (17:29)
[2017-12-18] MEDS ORDERED: CLOPIDOGREL 300 MG TAB ONE (17:29)
--- NOTE | 2017-12-18 17:41 | CATHPROC ---
IBillionaire HIS Report Study Information Study Number Admission Scheduled Start Study Start [id number] Dec 12 2017 6:14PM 12/18/2017 Dec 18 2017 4:03PM [place] [facility] Cardiac Catheterization Admit Source Facility Department Emergency department [facility] - Commercial Photographer Physician and Clinical Staff Initial Alvarez Conroy Data Operations Manager Skylar De Los Santos,ANDREAS Recorder Josesito Velasco,RT(R) Recorder Devante Lewis RCIS(BS) Scrub Sharon Watkins,RT(R) (BS) Procedures Performed Procedure Location (Site) Vessel Name Coronary Angiograms LCA Left Coronary Coronary Angiograms RCA Right Coronary L Heart Cath LV Gram-hand inj. LV LV Ventricle Stent RCA Mid Right Coronary Wire insertion Fem Art (right) Femoral Art Equipment Time Acquisitions Editor Description Size Mfg Part Number Used/Scraped [id number] 17:15 [employer] WIRE, ASAHI PROWATER 180CM 180CM Used *[id number] CATHETER, FR5 SWAN RAYSA 16:22 Kleer FR 5 [id number] *[id number] Used MONITOR TRANSDUCER, TRUWAVE [id number] 16:22 QUEVEDO GALLOWAY * Used W/STOCKCOCK *[id number] [id number] *[id number] *[id number] [id number] *[id number] *[id number] WIRE, HYDROSTEER 150CM [id number] 16:56 DAIG/ST. KENISHA MEDICAL 150CM Used ANGLED GLIDE *[id number] 16:22 MEDLINE IND[employer] PACK, CCL CUSTOM * Used *[id number] 16:22 [employer] [employer] PACER PEN, SKIN DUAL W/ RULER * Used *[id number] 17:17 MEDTRONIC STENT, 4.0 15 INTEGRITY 4.0 15 Used *[id number] 17:15 [employer] MEDICAL 30 THOMAS INDEFLATOR Used *[id number] 17:02 [employer] MEDICAL SHEATH, FR4.5 PRELUDE 11CM FR 4.5 Used [id number] 16:22 [employer] MEDICAL WIRE, 3MMJ .035 180CM 180CM Used *[id number] 16:22 NAMIC MANIFOLD, 4 PORT * Used *[id number] 16:22 NYCOMED OMNIPAQUE, 350 MG, 150ML 150ML [id number] Used [id number] 16:22 OLPE[employer] MEDICAL BLANKET,WARM AIR CCL * Used *[id number] 16:22 TERUMO MEDICAL SHEATH, FR4 TERUMO (10CM) FR 4 Used *[id number] 17:06 TERUMO MEDICAL SHEATH, FR6 TERUMO (10CM) FR 6 Used *[id number] 16:45 TERUMO MEDICAL SHEATH, FR6 TERUMO (10CM) FR 6 Used *[id number] Equipment Model, Serial, Lot Number and Expiration Data Description Model Number Serial Number Lot Number Expiration Date STENT, 4.0 15 INTEGRITY [id number] 06-10-2019 WIRE, HYDROSTEER 150CM [id number] 08-19-2020 ANGLED GLIDE History: Current Medications Medication Dosage/Unit Route Frequency Last Date/Time Taken Statins (any) PLAVIX ELIQUIS CARVEDILOL LISINOPRIL TRAMADOL History: Allergies Allergy Reaction No Known Allergies History: Risk Factors Family History of Hypertension Dyslipidemia Previous SD Previous Heart Failure Premature CAD Yes Yes No No Yes Prior Valve Prior PCI Prior PCIDate Prior CABG Prior CABGDate Surgery No Yes 12/19/2007 Yes 10/28/2017 Cerebrovascular Peripheral Artery Chronic Lung On Dialysis Diabetes Disease Disease Disease No Yes Yes No No History: CV Disease Selection Items Known CAD History: Stress Tests Stress or Imaging Studies Performed No History: Arrhythmias Selection Items Atrial fibrillation History: Other Disease Selection Items CAD CHF HTN History: Other Current Smoker Method Quit Packs a Day Years Used Pack Years No Cigarettes 4 Years Ago 1 25 25 Labs Hgb (g/dl) Hct (%) RBC (MIL/MM3) WBC (l/cumm) Platelets (thousands) 11.60-17.00 35.00-51.00 4.00-5.90 4.00-11.00 150.00-450.00 11.0 34 3.7 3.7 262 Glucose (mg/dl) BUN (mg/dl) Creatinine (mg/dl) BUN:Creatinine (1:x) 74.00-106.00 7.00-18.00 0.50-1.30 10.00-20.00 141 45 1.1 40.9 Na (meq/l) K (meq/l) Cl (meq/l) CO2 (mmol/L) Ca (mg/dl) 136.00-145.00 3.50-5.10 98.00-107.00 21.00-32.00 8.50-10.10 143 4.3 106 30.2 8.5 PT (sec) INR (PTT:PT) 9.80-11.60 0.90-1.10 11.1 1.1 Troponin I (ng/ml) Troponin T (ng/ml) CPK (u/l) CPK-MB (ng/ML) 0.02-0.05 0.40-2.10 26.00-308.00 0.50-3.60 0.81 0.39 112 1.4 Medication Medication Total Dose (Bolus/Oral) Medication Total Dosage/Unit 1% XYLOCAINE 40 mL ASPIRIN 162 mg FENTANYL 25 mcg HEPARIN 4600 units PLAVIX 300 mg VERSED 1 mg Medications (Bolus/Oral) Medication Time Given Dosage/Unit Administered By Reason VERSED 12/18/2017 4:44:53 PM 1 mg Skylar De Los Santos 1 mg VERSED given in lab by Skylar De Los Santos RN in Right Forearm via Peripheral IV. Ordered by Alvarez Saldaña. 1% XYLOCAINE 12/18/2017 4:45:39 PM 20 mL Alvarez Livingston 20 mL 1% XYLOCAINE given in lab by Alvarez Livingston in Right Groin via Subcutaneous. 1% XYLOCAINE 12/18/2017 5:02:00 PM 20 mL Alvarez Livingston 20 mL 1% XYLOCAINE given in lab by Alvarez Livingston in Left Groin via Subcutaneous. FENTANYL 12/18/2017 5:05:44 PM 12.5 mcg Skylar De Los Santos 12.5 mcg FENTANYL given in lab by Skylar De Los Santos RN in Right Forearm via Peripheral IV. Ordered by Alvarez Livingston. FENTANYL 12/18/2017 5:09:18 PM 12.5 mcg Skylar De Los Santos 12.5 mcg FENTANYL given in lab by Skylar De Los Santos RN in Right Forearm via Peripheral IV. Ordered by Alvarez Livingston. HEPARIN 12/18/2017 5:15:21 PM 4600 units Skylar De Los Santos 4600 units HEPARIN given in lab by Skylar De Los Santos RN in Right Forearm via Peripheral IV. Ordered by Alvarez Livingston. PLAVIX 12/18/2017 5:28:20 PM 300 mg Skylar De Los Santos 300 mg PLAVIX given in lab by Skylar De Los Santos RN via Oral. Ordered by Alvarez Livingston. ASPIRIN 12/18/2017 5:29:14 PM 162 mg Skylar De Los Santos 162 mg ASPIRIN given in lab by Skylar De Los Santos, ANDREAS via Oral. Ordered by Alvarez Livingston. Medication (Drip) Medication Time Given Dosage/Unit Concentration/Unit Diluent (ml) Solution IV Solutions 12/18/2017 4:22:49 PM 0 mL (IV) 500 NaCl .9 IV Solutions given in lab by Skylar De Los Santos, ANDREAS via Peripheral IV. Pump/Drip Flow = 20 ml/hr using N aCl .9. Initial Case Assessment Cardiovascular HR Rhythm NIBP Chest Pain 47 Sinus/Renzo 161/72 0 Edema Present Skin color Skin None Normal Warm Dry Circulatory - Right Pulses Dorsalis Pedis Femoral 1 2 Scale (0,1,2,3,4,d) Circulatory - Left Pulses Dorsalis Pedis Femoral 1 2 Scale (0,1,2,3,4,d) Neurological State Oriented to time-place- Alert Moves all extremities person Respiration - General Respiration Rate SpO2 (%) O2 (lpm) (B/min) 13 96 0 Final Case Assessment Cardiovascular HR Rhythm NIBP Chest Pain 47 Sinus/Renzo 147/69 0 Edema Present Skin color Skin None Normal Warm Dry Circulatory - Right Pulses Dorsalis Pedis Femoral 1 2 Scale (0,1,2,3,4,d) Circulatory - Left Pulses Dorsalis Pedis Femoral 1 2 Scale (0,1,2,3,4,d) Neurological State Oriented to time-place- Alert Moves all extremities person Respiration - General Respiration Rate SpO2 (%) O2 (lpm) (B/min) 14 98 0 Chronological Log Time Study Chronological Log 16:18:23 Patient arrived via Bed. 16:22:29 Patient Name, D.O.B, / Armband Verified By R.N. 16:22:29 Consent signed by the physician and the patient and verified by the Commercial Photographer staff. 16:22:30 Pre-op and post- op instructions given; patient acknowledges understanding of instructions. 16:22:31 Verbal Stimulation=2 Physical Stimulation=2 Airway=2 Respiration=2 TOTAL=8. (0=absent, 1=li mited, 2=present) 16:22:32 Presedation assessment performed by Commercial Photographer RN. 16:22:35 Patient has been NPO for More than 6Hrs. 16:22:37 Skin Breakdown- none per patient. 16:22:45 Patient Warmer Placed on the Table. 16:22:45 Tracy Prominences Protected 16:22:48 A # 20 IV was noted in the Forearm (right). Grade = 0 16:22:49 IV Solutions given in lab by Skylar De Los Santos RN via Peripheral IV. Pump/Drip Flow = 20 ml/ hr using NaCl .9. 16:22:49 History and physical on the chart or being dictated. Assessment: Initial Case, HR=47 BPM, Rhythm=Sinus/Renzo, AKNT=221/72 mmhg, Chest Pain=0, Edema= None, Color=Normal, Skin = Warm, Dry Right Pulses: Brendan Ped=1, Femoral=2 16:22:50 Left Pulses: Brendan Ped=1, Femoral=2 Neurological: State=Alert, Ox3, DAVIS Respiration: Resp=13 B/min, SpO2=96 %, O2=0 lpm Vitals capture started with the following parameters, Patient=Adult, Interval=5 min, Initial Pr kgfwhi=309 mmHg, 16:24:38 Deflation Rate=5 mmHg, Cuff placed on Left Arm 16:25:22 HR=48 bpm, XTIT=879/72 mmhg, SpO2=97.0 %, Resp=14 B/min, Pain=0, Herve=10, Schofield=2 16:30:21 HR=47 bpm, KNZM=447/73 mmhg, SpO2=96.0 %, Resp=15 B/min, Pain=0, Herve=10, Schofield=2 16:33:04 Bilateral groins prepped with 2% chlorhexidine, and draped after a 3 minute waiting time. 16:34:39 MD paged 16:35:18 HR=47 bpm, IYEC=534/69 mmhg, SpO2=97.0 %, Resp=12 B/min, Pain=0, Herve=10, Schofield=2 16:37:30 MD responded 16:37:37 Pressure channel 1 zeroed. 16:41:02 HR=47 bpm, KDGS=873/68 mmhg, SpO2=97.0 %, Resp=13 B/min, Pain=0, Herve=10, Schofield=2 16:42:11 MD arrived. 16:42:15 Contrast Scanned 16:42:15 Immediate Presedation assesment performed by physician. 16:42:55 Reference ECG taken 16:44:53 1 mg VERSED given in lab by Skylar De Los Santos, RN in Right Forearm via Peripheral IV. Ordered by Alvarez Livingston. 16:45:24 HR=48 bpm, XFGT=029/70 mmhg, SpO2=97.0 %, Resp=26 B/min, Pain=0, Herve=10, Schofield=2 Time Out. Correct patient, correct procedure, correct physician, power injector not loaded with contrast with surgical 16:45:29 team present. Time Out Concurred by MD and individual staff in procedure. 16:45:35 Case Start 16:45:35 Verbal Stimulation=2 Physical Stimulation=2 Airway=2 Respiration=2 TOTAL=8. (0=absent, 1=li mited, 2=present) 16:45:39 20 mL 1% XYLOCAINE given in lab by Alvarez Livingston in Right Groin via Subcutaneous. 16:48:04 Access site was Right Femoral Artery. 16:48:09 A SHEATH, FR4 TERUMO (10CM) FR 4 was advanced into the Fem Art (right) using the Percutaneo us technique. 16:49:15 Saturation: Site=Ao (Aorta) , O2=96.4 %, Hgb=11 gm/dl, Condition=Condition 1. [facility]. 16:50:33 Access site was Right Femoral Vein. 16:50:36 A SHEATH, FR6 TERUMO (10CM) FR 6 was advanced into the Fem Vein (right) using the Percutane ous technique. 16:50:56 A CATHETER, FR5 SWAN RAYSA MONITOR FR 5 was inserted via Fem Vein (right) 16:51:08 HR=49 bpm, SRTP=455/66 mmhg, SpO2=95.0 %, Resp=15 B/min, Pain=0, Herve=10, Schofield=2 Recorded Pressure: PCW, HR=49, Condition=Condition 1 16:52:16 (Pulmonary Capillary Wedge) PCW 13/7/6 Recorded Pressure: MPA, HR=50, Condition=Condition 1 16:52:33 (Main Pulmonary Artery) MPA 16:52:40 Saturation: Site=PA (Pulmonary Artery) , O2=67 %, Hgb=11 gm/dl, Condition=Condition 1. Used in calculation. Recorded Pressure: RV, HR=49, Condition=Condition 1 16:53:42 (Right Ventricle) RV Recorded Pressure: RA, HR=48, Condition=Condition 1 16:53:56 (Right Atrium) RA 16:54:16 Saturation: Site=RA (Right Atrium) , O2=65.1 %, Hgb=11 gm/dl, Condition=Condition 1. Used i n calculation. 16:54:23 Mico Raysa Catheter Removed A JR 4.0 INFINITI CATHETER FR 4 was advanced over a wire. OMNIPAQUE, 350 MG, 150ML 150ML was us ed for 16:54:41 injections. 16:55:18 HR=47 bpm, CUCE=558/89 mmhg, SpO2=97.0 %, Resp=12 B/min, Pain=0, Herve=10, Schofield=2 16:56:26 The previous wire was exchanged for a WIRE, HYDROSTEER 150CM ANGLED GLIDE 150CM. 16:57:35 Wire removed 16:58:10 A WIRE, HYDROSTEER 150CM ANGLED GLIDE 150CM was inserted via Fem Art (right). 16:58:10 An injection in the Fem Art (right) was made through the SHEATH, FR4 TERUMO (10CM) FR 4. 17:00:18 Wire removed 17:00:21 An injection in the Fem Art (right) was made through the SHEATH, FR4 TERUMO (10CM) FR 4. 17:00:45 Wire removed 17:00:46 Catheter was removed 17:01:02 HR=47 bpm, ITCH=768/66 mmhg, SpO2=96.0 %, Resp=17 B/min, Pain=0, Herve=10, Schofield=2 17:02:00 20 mL 1% XYLOCAINE given in lab by Alvarez Livingston in Left Groin via Subcutaneous. 17:04:36 Access site was Left Femoral Artery. 17:04:45 Dilating wtih 6FR dilator 12.5 mcg FENTANYL given in lab by Skylar De Los Santos, RN in Right Forearm via Peripheral IV. Order ed by Yara, 17:05:44 Alvarez. 17:06:08 HR=48 bpm, VFXB=318/71 mmhg, SpO2=97.0 %, Resp=16 B/min, Pain=0, Herve=10, Schofield=2 17:07:27 Sheath removed; pressure applied to access site. 17:08:08 Access site was Left Femoral Artery. 17:08:12 A SHEATH, FR6 TERUMO (10CM) FR 6 was advanced into the Fem Art (left) using the Percutaneou s technique. A JR 4.0 INFINITI CATHETER FR 4 was advanced over a wire. OMNIPAQUE, 350 MG, 150ML 150ML was us ed for 17:08:30 injections. 12.5 mcg FENTANYL given in lab by Skylar De Los Santos RN in Right Forearm via Peripheral IV. Order ed by Yara, 17:09:18 Alvarez. 17:10:26 HR=47 bpm, JTJR=140/67 mmhg, SpO2=98.0 %, Resp=11 B/min, Pain=0, Herve=10, Schofield=2 Recorded Pressure: LV, HR=48, Condition=Condition 1 17:10:44 (Left Ventricle) LV 166/5/23 17:11:01 The LV was manually injected with 10 cc's and visualized. OMNIPAQUE, 350 MG, 150ML 150ML us ed. Recorded Pressure: LV, Ao, HR=47, Condition=Condition 1 17:11:28 (Left Ventricle) LV 162/-3/22, (Aorta) Ao 161/59/95 17:11:49 The RCA was injected and visualized at various angles. OMNIPAQUE, 350 MG, 150ML 150ML used . Recorded Pressure: Ao, HR=45, Condition=Condition 1 17:11:58 (Aorta) Ao 150/54/87 17:12:22 Catheter was removed After removing the current catheter a JL 4.0 INFINITI CATHETER FR 4 was advanced over a WIRE, 3 MMJ .035 180CM 17:12:42 180CM. 17:13:52 The LCA was injected and visualized at various angles. OMNIPAQUE, 350 MG, 150ML 150ML used . After removing the current catheter a JR 4.0 GUIDE CATHETER FR 6 was advanced over a WIRE, 3MMJ .035 180CM 17:15:12 180CM. 4600 units HEPARIN given in lab by Skylar De Los Santos, RN in Right Forearm via Peripheral IV. Orde red by Yara, 17:15:21 Alvarez. 17:15:25 HR=47 bpm, HVNP=313/69 mmhg, SpO2=98.0 %, Resp=31 B/min, Pain=0, Herve=10, Schofield=2 17:16:12 A WIRE, ASAHI PROWATER 180CM 180CM was inserted via Fem Art (right). 17:17:35 Interventional wire has crossed the lesion An STENT, 4.0 15 INTEGRITY 4.0 15 Bare Metal Stent was inserted through a JR 4.0 GUIDE CATHETER FR 6 over a 17:17:42 WIRE, ASAHI PROWATER 180CM 180CM. A STENT, 4.0 15 INTEGRITY 4.0 15 was deployed using a 30 THOMAS INDEFLATOR at 12 atmospheres for 1 5 seconds in 17:18:32 the RCA Mid. 17:18:49 Delivery device removed 17:19:02 Activated Clotting Time Drawn 17:19:06 Wire removed 17:19:17 Catheter was removed 17:19:21 Case End Assessment: Final Case, HR=47 BPM, Rhythm=Sinus/Renzo, ESAP=234/69 mmhg, Chest Pain=0, Edema=N one, Color=Normal, Skin = Warm, Dry Right Pulses: Brendan Ped=1, Femoral=2 17:19:24 Left Pulses: Brendan Ped=1, Femoral=2 Neurological: State=Alert, Ox3, DAVIS Respiration: Resp=14 B/min, SpO2=98 %, O2=0 lpm 17:19:42 Catheter(s) removed without difficulty 17:19:49 In the Fem Vein (right) the SHEATH, FR6 TERUMO (10CM) FR [address] by Skylar De Los Santos, ANDREAS. 17:20:22 In the Fem Art (right) the SHEATH, FR4.5 PRELUDE 11CM FR 4.[address] by Skylar Flaherty, ANDREAS. 17:20:26 In the Fem Art (left) the SHEATH, FR6 TERUMO (10CM) FR [address] by Mary Grace De Los Santos RN. 17:20:52 No case complications noted. 17:20:53 Sterile dressing applied to site 17:20:54 Cine recording checked. 17:20:55 Bedside Report will be given. 17:20:56 Implantable Device card placed in patient's chart. 17:20:59 Verbal Stimulation=2 Physical Stimulation=2 Airway=2 Respiration=2 TOTAL=8. (0=absent, 1=l imited, 2=present) 17:21:05 A Left Heart Cath was performed. 17:21:37 HR=49 bpm, VZVP=398/67 mmhg, SpO2=99.0 %, Resp=17 B/min, Pain=0, Herve=10, Schofield=2 17:24:03 ARTERIAL LINES AND VENOUS LINES CALLED FOR. 17:25:27 HR=47 bpm, GZAR=249/69 mmhg, SpO2=98.0 %, Resp=15 B/min, Pain=0, Herve=10, Schofield=2 17:28:20 300 mg PLAVIX given in lab by Skylar De Los Santos, ANDREAS via Oral. Ordered by Alvarez Livingston. 17:29:14 162 mg ASPIRIN given in lab by Skylar De Los Santos, ANDREAS via Oral. Ordered by Alvarez Livingston. 17:31:50 HR=49 bpm, RHBE=608/66 mmhg, SpO2=99.0 %, Resp=10 B/min, Pain=0, Herve=10, Schofield=2 17:36:04 CFXT=020/72 mmhg 17:40:[address] [facility] End Study - Contrast Media Used In Study Contrast Total Opened (mL) Total Used (mL) Total Wasted (mL) Omnipaque 45 45 0 End Study - Maximum Contrast Load Max Contrast Load (mL) 345.5 End Study - Radiation Exposure Fluoro Time (minutes) 8.4 End Study - Patient Disposition Complications Transferred To Interventional Outcome No Critical Care Bed successful
[2017-12-18] MEDS ORDERED: MISC INFORMATION XX ONE (18:15)
[2017-12-18] MEDS ORDERED: SODIUM CHLORIDE 0.9% FLUSH 10 ML FLUSH IV FLUSH PRN (18:15)
--- NOTE | 2017-12-18 20:05 | MR ---
cc: Alvarez Livingston MD, Arthur W MD PROCEDURE: Right heart catheterization, left heart catheterization, left angiography, coronary angiography, and placement of a bare metal stent in the mid to distal RCA. INDICATIONS: Preop non-cardiac surgery, new onset resting chest pain described as tightness, unstable angina, [place] [employer] Class IV angina, cardiomyopathy, severe dyspnea at rest, CHF, coronary artery disease, peripheral vascular disease. PROCEDURAL STATEMENT: The patient was brought into the cardiac catheterization laboratory, prepped and draped in usual sterile fashion. Lidocaine 10 mL, 1% was used to locally anesthetize the right common femoral artery. A 4-Amharic sheath placed in the right common femoral artery. A 6-Amharic sheath placed in the right common femoral vein. Right heart catheterization was performed first with the following findings: Pulmonary capillary wedge pressure 13/7/6. PA pressure 31/14/21. RV pressure 20/1/4. RA pressure 6/3/2. On room air the femoral artery sat was 96.4%, PA sat 67.0%, RA sat 65.1%. Cardiac output by Yuval 5.3 liters per minute. Cardiac index by Yuval 2.8 liters per m2 per minute. SVR 1279.5 dynes. I then attempted to do left heart catheterization to the right femoral artery. I was not able to advance a Terumo or 0.035 guidewire past the right common iliac artery. I therefore located and anesthetized the left femoral artery area with 20 mL of 1% lidocaine, placed a 6-Amharic Terumo sheath. I then used a 4-Amharic JR4 JL4 catheter to perform left and right coronary angiography, left ventriculography. All catheter exchanges were done over an 0.035 guidewire. Note: The LUI was patent on the cath on 10/28/2017. Therefore, I did not image the LUI. The LV pressure were 160/5/10. The ejective fraction was 30%. The apical wall appeared to be severely hypokinetic. The right coronary artery is dominant. It has mild to moderate diffuse disease in the proximal segment up to 30% angiographically. The mid to distal segment has a 75% stenosis. The left main coronary artery has a distal calcified 50% stenosis. The LAD is occluded at the first diagonal artery. The first diagonal artery is a medium size vessel with moderate diffuse disease up to 40% to 50% in the proximal mid segment. The left circumflex vessel is a relatively small vessel beyond the proximal mid segment and has severe diffuse disease throughout most of its length in the mid AV groove up to 90% angiographically. Then, after a small obtuse marginal vessel has a 95% stenosis at the bifurcation and then supplies a distal small to medium size posterolateral artery which has a reference vessel diameter of 2.5 mm in diameter. DISCUSSION: At this point in time, I do think stenting of the left main LAD would be very difficult and require multiple long stents which would be a small diameter and would require prolonged aspirin and Plavix prior to any potential surgery. There is a relatively small amount of jeopardized myocardium, therefore, I do think it is reasonable to do PCI of the much right larger right coronary artery which has a reference vessel diameter of 4 mm of diameter. It has a 75% stenosis in the mid to distal segment which appears worse than it did on 10/28/2017 angiogram. Heparin 70 units/kg was given, ACT 262, 6-Amharic JR4 guide, 0.014 Prowater guidewire and a 4.0 x 15 Integrity stent were used to directly stent the mid to distal right coronary artery 1 inflation of 12 atmospheres for 20 seconds. Stenosis went from 75% to 0% with CECILY III flow. CONCLUSIONS: 1. Angiographically severe 3-vessel coronary artery disease as detailed above. 2. Severe left ventricular systolic dysfunction, cardiomyopathy, ejection fraction 30% with severe hypokinesis to akinesis with an Hutchins. 3. Euvolemic by right heart catheterization pressures as detailed above. 4. Cardiac index at 2.8 liters per m2 per minute. 5. Successful direct percutaneous intervention of bare metal stent of the mid to distal right coronary artery from 75% to 0% with CECILY III flow. 6. Recommend Plavix 300 mg by mouth load then 75 mg a day for at least 2 weeks, preferably 4 weeks, ____ 6 weeks and then, after potential surgery, for 12 to 15 months. Aspirin 81 mg daily. The patient will need to be restarted on his Eliquis tomorrow for his chronic atrial fibrillation. We will also need to treat lipids per NCP guidelines. We will need to make sure the patient is on a beta-hina and an KIMANI inhibitor given his cardiomyopathy. MD RAO Salinas/SA/rh , 05:30 PM , 06:35 PM
[2017-12-18] MEDS: TAMSULOSIN HCL 0.4 MG CAP PO SCH (20:58)
[2017-12-18] MEDS: ATORVASTATIN 40 MG TAB PO SCH (20:59)
[2017-12-19] VITALS (26 sets, daily range): BP systolic 113–208; BP diastolic 61–107; PULSE 48–107; RESP 14–29; TEMP 97.5–98.3; O2SAT 85–100
[2017-12-19] MEDS: PIPERACIL-TAZO 3.375 GM PREMIX 50 ML IV SCH ×5 (00:30→23:56)
[2017-12-19] MEDS: FUROSEMIDE 40 MG/4 ML VIAL IV PUSH SCH ×2 (00:30→12:52)
[2017-12-19 03:50] LABS: AUTOMATED NEUTROPHIL # 11.3 TH/MM3 (1.8-7.7); BASOPHIL % 0.1 % (0.0-2.0); HEMATOCRIT 35.2 % (39.0-51.0); HEMOGLOBIN 11.8 GM/DL (13.0-17.0); LYMPH % 9.7 % (9.0-44.0); LYMPHOCYTE # 1.3 TH/MM3 (1.0-4.8); MEAN CELL VOLUME 93.8 FL (80.0-100.0); MEAN CORPUSCULAR HEMOGLOBIN 31.3 PG (27.0-34.0); MEAN CORPUSCULAR HGB CONC 33.4 % (32.0-36.0); MEAN PLATELET VOLUME 7.8 FL (7.0-11.0); MONO % 6.4 % (0.0-8.0); MONOCYTE # 0.9 TH/MM3 (0-0.9); NEUT % 83.8 % (16.0-70.0); PLATELET COUNT 265 TH/MM3 (150-450); RED BLOOD COUNT 3.75 MIL/MM3 (4.50-5.90); RED CELL DISTRIBUTION WIDTH 14.9 % (11.6-17.2); WHITE BLOOD COUNT 13.4 TH/MM3 (4.0-11.0)
[2017-12-19 04:18] LABS: BICARBONATE 29.3 MEQ/L (21.0-32.0); CALCIUM 8.4 MG/DL (8.5-10.1); CHOLESTEROL/ HDL RATIO 3.76 RATIO; CREATININE 1.16 MG/DL (0.60-1.30); HDL CHOLESTEROL 29.2 MG/DL (40.0-60.0)
[2017-12-19] MEDS: CHLORHEXIDINE 0.12% (ORAL KIT) 15 ML CUP MT SCH ×2 (08:00→20:00)
[2017-12-19] MEDS: DIVALPROEX DR 500 MG TABEC PO SCH ×3 (08:50→17:42)
[2017-12-19] MEDS: ASPIRIN 81 MG CHEW TAB PO SCH (08:50)
[2017-12-19] MEDS: QUEtiapine FUMARATE 25 MG TAB PO SCH ×2 (08:50→12:52)
[2017-12-19] MEDS: GABAPENTIN 300 MG CAP PO SCH ×3 (08:50→17:42)
[2017-12-19] MEDS: methylPREDNISolone SOD SUCC 40 MG/1 ML VIAL IV PUSH SCH (08:50)
[2017-12-19] MEDS: PRAVASTATIN SOD 40 MG TAB PO SCH (08:50)
[2017-12-19] MEDS: SPIRONOLACTONE 25 MG TAB PO SCH ×2 (08:50→17:42)
[2017-12-19] MEDS: SODIUM CHLORIDE 0.9% FLUSH 10 ML FLUSH IV FLUSH SCH (08:54)
[2017-12-19] MEDS: DOCUSATE SODIUM 50 MG/SENNA 8.6 MG TAB PO SCH ×2 (09:00→21:00)
[2017-12-19] MEDS ORDERED: IOHEXOL 350 MG/ML 50 ML BTL (for Cath Lab) OTHER ONE (10:26)
[2017-12-19] MEDS: AMIODARONE 200 MG TAB PO SCH (10:31)
[2017-12-19] MEDS: MORPHINE SULFATE 2 MG/ML INJ IV PRN ×2 (10:41→16:51)
--- NOTE | 2017-12-19 12:06 | EKG ---
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 DOCTOR: Catalina Henderson Interpretating Date/Time 12/19/2017 12:04:55
[2017-12-19] MEDS: CLOPIDOGREL 75 MG TAB PO SCH (12:51)
[2017-12-19] MEDS: APIXABAN 5 MG TABLET PO SCH ×2 (12:52→23:58)
[2017-12-19] MEDS: CARVEDILOL 12.5 MG TAB PO SCH (12:52)
[2017-12-19] MEDS: LISINOPRIL 20 MG TAB PO SCH (12:53)
--- NOTE | 2017-12-19 13:44 | PD.CARD.PN ---
Subjective Subjective Remarks assymptomatic Objective Medications Current Medications Medications (Trade) Dose Ordered Sig/Eliot Route Start Time Stop Time Status Last Admin (Tylenol) 650 mg Q4H PRN PO 12/12/17 06:00 (Zofran Inj) 4 mg Q6H PRN IVP 12/12/17 06:00 (Narcan Inj) 0.4 mg UNSCH PRN IV PUSH 12/12/17 06:00 (Lillian-Colace) 1 tab BID PO 12/12/17 09:00 12/17/17 08:53 (Milk Of Magnesia Liq) 30 ml Q12H PRN PO 12/12/17 06:00 (Senokot) 17.2 mg Q12H PRN PO 12/12/17 06:00 (Dulcolax Supp) 10 mg DAILY PRN RECTAL 12/12/17 06:00 (Lactulose Liq) 30 ml DAILY PRN PO 12/12/17 06:00 Piperacillin Sod/ Tazobactam Sod 50 ml @ 100 mls/hr Q6H IV 12/12/17 06:00 12/19/17 12:51 (Morphine Inj) 2 mg Q4H PRN IV 12/12/17 11:45 12/19/17 10:41 ([place] 5-325 Mg) 1 tab Q6H PRN PO 12/12/17 11:45 12/18/17 13:10 ([place] 5-325 Mg) 2 tab Q6H PRN PO 12/12/17 11:45 12/17/17 20:12 (Peridex 0.12% Liq) 15 ml BID@08,20 MT 12/13/17 20:00 12/17/17 08:00 Azithromycin 500 mg/Sodium Chloride 250 ml @ 250 mls/hr Q24H IV 12/13/17 14:00 12/18/17 13:10 Potassium Chloride 100 ml @ 50 mls/hr Q2H PRN IV 12/13/17 13:30 Potassium Chloride 100 ml @ 50 mls/hr Q2H PRN IV 12/13/17 13:30 (K-Lyte Cl Eff) 50 meq UNSCH PRN PO 12/13/17 13:30 12/15/17 16:14 Potassium Chloride 100 ml @ 25 mls/hr UNSCH PRN IV 12/13/17 13:30 Potassium Chloride 100 ml @ 50 mls/hr Q2H PRN IV 12/13/17 13:30 Magnesium Sulfate 4 gm/Sodium Chloride 100 ml @ 50 mls/hr UNSCH PRN IV 12/13/17 13:30 (Mag-Ox) 800 mg UNSCH PRN PO 12/13/17 13:30 Magnesium Sulfate 2 gm/Sodium Chloride 100 ml @ 50 mls/hr UNSCH PRN IV 12/13/17 13:30 (K-Phos) 2,000 mg Q4H PRN PO 12/13/17 13:30 Sodium Phosphate 30 mmol/Sodium Chloride 250 ml @ 42 mls/hr UNSCH PRN IV 12/13/17 13:30 (K-Phos) 2,000 mg UNSCH PRN PO/TUBE 12/13/17 13:30 Potassium Phosphate 30 mmol/ Sodium Chloride 260 ml @ 42 mls/hr UNSCH PRN IV 12/13/17 13:30 (Cordarone) 200 mg DAILY PO 12/14/17 09:00 12/19/17 10:31 (Lipitor) 40 mg HS PO 12/13/17 21:00 12/18/17 20:59 (Coreg) 12.5 mg DAILY PO 12/14/17 09:00 12/19/17 12:52 (Depakote Dr) 500 mg TID PO 12/13/17 18:00 12/19/17 12:52 (Neurontin) 300 mg TID PO 12/13/17 18:00 12/19/17 12:52 (Aldactone) 25 mg BID@,18 PO 12/13/17 18:00 12/19/17 08:50 (Brethine Inj) 1 mg UNSCH PRN SQ 12/14/17 10:45 (Lasix Inj) 20 mg Q12H IV PUSH 12/16/17 00:00 12/19/17 12:52 (Catapres) 0.1 mg Q6H PRN PO 12/17/17 03:30 12/17/17 03:41 (Apresoline Inj) 10 mg Q30M PRN IV PUSH 12/17/17 05:45 12/19/17 09:23 (SoluMEDROL INJ) 40 mg Q12HR IV PUSH 12/17/17 21:00 12/19/17 08:50 (Duoneb Neb) 1 ampule Q2HR NEB PRN NEB 12/17/17 14:15 12/17/17 17:02 (Flomax) 0.8 mg HS PO 12/17/17 21:00 12/18/17 20:58 (Pravachol) 40 mg DAILY PO 12/18/17 09:00 12/19/17 08:50 (SEROquel) 25 mg BID@09,12 PO 12/18/17 09:00 12/19/17 12:52 (Prinivil) 20 mg DAILY PO 12/19/17 09:00 12/19/17 12:53 (NS Flush) 2 ml UNSCH PRN IV FLUSH 12/18/17 18:15 (NS Flush) 2 ml BID IV FLUSH 12/18/17 21:00 12/19/17 08:54 (Aspirin Chew) 81 mg DAILY PO 12/19/17 09:00 12/19/17 08:50 (Plavix) 75 mg DAILY PO 12/19/17 09:00 12/19/17 12:51 (Eliquis) 5 mg BID PO 12/19/17 11:15 12/19/17 12:52 Vital Signs / I&O Vital Signs Date Time Temp Pulse Resp B/P (MAP) Pulse Ox O2 Delivery O2 Flow Rate FiO2 12/19/17 12:00 64 12/19/17 11:00 61 20 170/75 (106) 93 12/19/17 10:46 20 12/19/17 10:00 107 20 184/75 (111) 97 12/19/17 09:00 51 29 208/87 (127) 97 12/19/17 08:00 49 12/19/17 08:00 98.0 49 26 167/72 (103) 98 12/19/17 07:27 94 21 12/19/17 07:00 98.3 49 27 155/107 (123) 93 12/19/17 06:00 48 15 180/74 (109) 96 12/19/17 05:00 49 14 161/74 (103) 95 12/19/17 04:00 97.7 48 18 162/72 (102) 95 12/19/17 04:00 48 12/19/17 03:00 57 22 113/69 (84) 95 12/19/17 02:00 49 17 143/63 (89) 96 12/19/17 01:00 51 20 136/65 (88) 95 12/19/17 00:00 49 12/19/17 00:00 98.0 48 19 128/62 (84) 94 12/18/17 23:00 50 21 141/66 (91) 96 12/18/17 22:45 54 32 161/75 (103) 96 Arterial Line 12/18/17 22:30 48 21 136/64 (88) 96 Arterial Line 12/18/17 22:15 48 20 137/64 (88) 97 Arterial Line 12/18/17 22:14 49 20 152/67 (95) 98 Arterial Line 12/18/17 22:07 51 25 136/63 (87) 99 Arterial Line 12/18/17 22:00 52 25 Arterial Line 94 12/18/17 21:50 49 19 125/57 (79) 97 Arterial Line 12/18/17 21:43 51 38 129/58 (81) 99 Arterial Line 12/18/17 21:00 49 19 116/55 (75) 95 Arterial Line 12/18/17 20:50 49 19 109/58 (75) 96 Arterial Line 12/18/17 20:40 50 19 123/58 (79) 96 Arterial Line 12/18/17 20:30 49 20 116/58 (77) 95 Arterial Line 12/18/17 20:25 51 19 122/57 (78) 97 Arterial Line 12/18/17 20:24 53 15 134/66 (88) 98 Arterial Line 12/18/17 20:15 50 19 117/59 (78) 98 Arterial Line 12/18/17 20:12 53 27 116/62 (80) 97 Arterial Line 12/18/17 20:10 51 20 108/55 (72) 97 Arterial Line 12/18/17 20:06 50 25 129/56 (80) 97 Arterial Line 12/18/17 20:03 49 17 127/65 (85) 96 Arterial Line 12/18/17 20:00 49 12/18/17 20:00 98.4 49 20 135/66 (89) 96 Arterial Line 12/18/17 19:10 97 21 12/18/17 19:00 98.1 50 21 183/70 (107) 97 12/18/17 16:00 49 12/18/17 16:00 97.7 49 17 140/72 (94) 100 12/18/17 14:10 19 I/O 12/18/17 12/18/17 12/18/17 12/19/17 12/19/17 12/19/17 07:00 15:00 23:00 07:00 15:00 23:00 Intake Total 200 ml 300 ml 550 ml 340 ml Output Total 1140 ml 730 ml 1250 ml Balance -940 ml 300 ml -180 ml -910 ml Intake Oral 100 ml 250 ml 240 ml IV Total 100 ml 300 ml 300 ml 100 ml Output Urine Total 1100 ml 650 ml 1250 ml Drainage Total 40 ml 80 ml # Voids 2 # Bowel Movements 2 1 20 Physical Exam GENERAL: SKIN: Warm and dry. HEAD: Normocephalic. EYES: No scleral icterus. No injection or drainage. NECK: Supple, trachea midline. No JVD or lymphadenopathy. CARDIOVASCULAR: Regular rate and rhythm without murmurs, gallops, or rubs. RESPIRATORY: Breath sounds equal bilaterally. No accessory muscle use. GASTROINTESTINAL: Abdomen soft, non-tender, nondistended. MUSCULOSKELETAL: No cyanosis, or edema. BACK: Nontender without obvious deformity. No CVA tenderness. Laboratory Laboratory Tests Test 12/19/17 03:24 White Blood Count 13.4 TH/MM3 Red Blood Count 3.75 MIL/MM3 Hemoglobin 11.8 GM/DL Hematocrit 35.2 % Mean Corpuscular Volume 93.8 FL Mean Corpuscular Hemoglobin 31.3 PG Mean Corpuscular Hemoglobin Concent 33.4 % Red Cell Distribution Width 14.9 % Platelet Count 265 TH/MM3 Mean Platelet Volume 7.8 FL Neutrophils (%) (Auto) 83.8 % Lymphocytes (%) (Auto) 9.7 % Monocytes (%) (Auto) 6.4 % Eosinophils (%) (Auto) 0.0 % Basophils (%) (Auto) 0.1 % Neutrophils # (Auto) 11.3 TH/MM3 Lymphocytes # (Auto) 1.3 TH/MM3 Monocytes # (Auto) 0.9 TH/MM3 Eosinophils # (Auto) 0.0 TH/MM3 Basophils # (Auto) 0.0 TH/MM3 CBC Comment DIFF FINAL Differential Comment Blood Urea Nitrogen 47 MG/DL Creatinine 1.16 MG/DL Random Glucose 248 MG/DL Calcium Level 8.4 MG/DL Sodium Level 141 MEQ/L Potassium Level 4.0 MEQ/L Chloride Level 104 MEQ/L Carbon Dioxide Level 29.3 MEQ/L Anion Gap 8 MEQ/L Estimat Glomerular Filtration Rate 62 ML/MIN Total Creatine Kinase 35 U/L Triglycerides Level 221 MG/DL Cholesterol Level 110 MG/DL LDL Cholesterol 37 MG/DL HDL Cholesterol 29.2 MG/DL Cholesterol/HDL Ratio 3.76 RATIO Assessment and Plan Problem List: (1) CAD (coronary artery disease) ICD Codes: I25.10 - Atherosclerotic heart disease of [place] coronary artery without angina pectoris (2) HTN (hypertension) ICD Codes: I10 - Essential (primary) hypertension (3) Acute on chronic systolic (congestive) heart failure ICD Codes: I50.23 - Acute on chronic systolic (congestive) heart failure (4) Unstable angina ICD Codes: I20.0 - Unstable angina (5) unstabk (6) Hypoxia ICD Codes: R09.02 - Hypoxemia (7) CHF (congestive heart failure) ICD Codes: I50.9 - Heart failure, unspecified (8) Atrial fibrillation ICD Codes: I48.91 - Unspecified atrial fibrillation Assessment and Plan 1.) CAD - pod#1 bms rca - assymptomatic, continue aspirin, plavix, lipitor; can have nc surg 2 weeks if necessary, 6 weeks optimally, d/w Dr Martinez; f/u with me 12/22/17 2.) Cardiomyopathy - euvolemic by rhc, continue lisinopril, coreg 3.) Afib - rate controlled, assymptomatic, restart eliquis 4.) HTN - add norvasc 5 mg qd Problem Qualifiers (1) CAD (coronary artery disease): (2) HTN (hypertension): Qualified Codes: I10 - Essential (primary) hypertension (3) Atrial fibrillation: Qualified Codes: I48.0 - Paroxysmal atrial fibrillation Alvarez Livingston MD Dec 19, 2017 13:44
[2017-12-19] MEDS ORDERED: amLODIPine BESYLATE 5 MG TAB PO ONE (14:25)
--- NOTE | 2017-12-19 15:22 | HHI.PR ---
Subjective Remarks Deferred entry, the patient was seen earlier at 9:40 AM. The patient denies chest pain or shortness of breath. States that he had some bleeding from the groin last night. WBCs trending down. Objective Vitals Vital Signs Date Time Temp Pulse Resp B/P (MAP) Pulse Ox O2 Delivery O2 Flow Rate FiO2 12/19/17 14:00 72 23 172/74 (106) 97 12/19/17 13:30 69 26 168/74 (105) 99 12/19/17 13:01 64 20 179/79 (112) 99 12/19/17 13:00 64 17 99 12/19/17 12:30 60 26 156/70 (98) 98 12/19/17 12:00 64 12/19/17 12:00 98.3 64 23 182/79 (113) 98 12/19/17 11:00 61 20 170/75 (106) 93 12/19/17 10:46 20 12/19/17 10:00 107 20 184/75 (111) 97 12/19/17 09:00 51 29 208/87 (127) 97 12/19/17 08:00 49 12/19/17 08:00 98.0 49 26 167/72 (103) 98 12/19/17 07:27 94 21 12/19/17 07:00 98.3 49 27 155/107 (123) 93 12/19/17 06:00 48 15 180/74 (109) 96 12/19/17 05:00 49 14 161/74 (103) 95 12/19/17 04:00 97.7 48 18 162/72 (102) 95 12/19/17 04:00 48 12/19/17 03:00 57 22 113/69 (84) 95 12/19/17 02:00 49 17 143/63 (89) 96 12/19/17 01:00 51 20 136/65 (88) 95 12/19/17 00:00 49 12/19/17 00:00 98.0 48 19 128/62 (84) 94 12/18/17 23:00 50 21 141/66 (91) 96 12/18/17 22:45 54 32 161/75 (103) 96 Arterial Line 12/18/17 22:30 48 21 136/64 (88) 96 Arterial Line 12/18/17 22:15 48 20 137/64 (88) 97 Arterial Line 12/18/17 22:14 49 20 152/67 (95) 98 Arterial Line 12/18/17 22:07 51 25 136/63 (87) 99 Arterial Line 12/18/17 22:00 52 25 Arterial Line 94 12/18/17 21:50 49 19 125/57 (79) 97 Arterial Line 12/18/17 21:43 51 38 129/58 (81) 99 Arterial Line 12/18/17 21:00 49 19 116/55 (75) 95 Arterial Line 12/18/17 20:50 49 19 109/58 (75) 96 Arterial Line 12/18/17 20:40 50 19 123/58 (79) 96 Arterial Line 12/18/17 20:30 49 20 116/58 (77) 95 Arterial Line 12/18/17 20:25 51 19 122/57 (78) 97 Arterial Line 12/18/17 20:24 53 15 134/66 (88) 98 Arterial Line 12/18/17 20:15 50 19 117/59 (78) 98 Arterial Line 12/18/17 20:12 53 27 116/62 (80) 97 Arterial Line 12/18/17 20:10 51 20 108/55 (72) 97 Arterial Line 12/18/17 20:06 50 25 129/56 (80) 97 Arterial Line 12/18/17 20:03 49 17 127/65 (85) 96 Arterial Line 12/18/17 20:00 49 12/18/17 20:00 98.4 49 20 135/66 (89) 96 Arterial Line 12/18/17 19:10 97 21 12/18/17 19:00 98.1 50 21 183/70 (107) 97 12/18/17 16:00 49 12/18/17 16:00 97.7 49 17 140/72 (94) 100 I/O 12/18/17 12/18/17 12/18/17 12/19/17 12/19/17 12/19/17 07:00 15:00 23:00 07:00 15:00 23:00 Intake Total 200 ml 300 ml 550 ml 340 ml Output Total 1140 ml 730 ml 1250 ml Balance -940 ml 300 ml -180 ml -910 ml Intake Oral 100 ml 250 ml 240 ml IV Total 100 ml 300 ml 300 ml 100 ml Output Urine Total 1100 ml 650 ml 1250 ml Drainage Total 40 ml 80 ml # Voids 2 # Bowel Movements 2 1 20 Result Diagram: 12/19/174 12/19/17323 Imaging Last Impressions Chest X-Ray 12/15/17 0000 Signed Impressions: Service Date/Time: Friday, December 15, 2017 10:02 - CONCLUSION: Interval extubation and continued improvement in aeration. Iain Ontiveros MD Percutaneous Cholangiogram 12/14/17 0000 Signed Impressions: Service Date/Time: Thursday, December 14, 2017 11:54 - CONCLUSION: Uncomplicated percutaneous cholecystostomy as above. Iain Ontiveros MD CT Angiography 12/13/17 0000 Signed Impressions: Service Date/Time: Wednesday, December 13, 2017 12:48 - CONCLUSION: 1. No evidence of pulmonary embolism 2. Bilateral increased interstitial markings suggestive of pulmonary edema. 3. Scattered bilateral pulmonary infiltrates Gene Ferraro MD Abdomen/Pelvis CT 12/12/17 0334 Signed Impressions: Service Date/Time: Tuesday, December 12, 2017 04:07 - CONCLUSION: 1. Cholelithiasis and with CT findings of concern for early or mild acute cholecystitis in the proper clinical setting. No duct stone or obstruction. 2. No other acute abnormalities are demonstrated. Ventral hernia containing transverse colon but without evidence of obstruction or strangulation. Aortofemoral bypass changes and appears patent. Iain Barnett MD Head CT 12/12/17 0000 Signed Impressions: Service Date/Time: Tuesday, December 12, 2017 18:42 - CONCLUSION: 1. Senescent changes with mild small vessel ischemic periventricular white matter demyelination. 2. Mild ventriculomegaly which may be slightly out of portion to the degree of atrophy. Clinical correlation for normal pressure hydrocephalus is recommended. Dino Coyne MD Objective Remarks Awake and alert nad Clear lungs BL S1S2 (+) RRR, no MRG Abdomen is soft, tender to palpation of right upper quadrant, no rebound tenderness, no guarding. No edema in bilateral extremities. Procedures Status post cardiac catheterization. Medications and IVs Current Medications Medications (Trade) Dose Ordered Sig/Eliot Route Start Time Stop Time Status Last Admin (Tylenol) 650 mg Q4H PRN PO 12/12/17 06:00 (Zofran Inj) 4 mg Q6H PRN IVP 12/12/17 06:00 (Narcan Inj) 0.4 mg UNSCH PRN IV PUSH 12/12/17 06:00 (Lillian-Colace) 1 tab BID PO 12/12/17 09:00 12/17/17 08:53 (Milk Of Magnesia Liq) 30 ml Q12H PRN PO 12/12/17 06:00 (Senokot) 17.2 mg Q12H PRN PO 12/12/17 06:00 (Dulcolax Supp) 10 mg DAILY PRN RECTAL 12/12/17 06:00 (Lactulose Liq) 30 ml DAILY PRN PO 12/12/17 06:00 Piperacillin Sod/ Tazobactam Sod 50 ml @ 100 mls/hr Q6H IV 12/12/17 06:00 12/19/17 12:51 (Morphine Inj) 2 mg Q4H PRN IV 12/12/17 11:45 12/19/17 10:41 ([place] 5-325 Mg) 1 tab Q6H PRN PO 12/12/17 11:45 12/18/17 13:10 ([place] 5-325 Mg) 2 tab Q6H PRN PO 12/12/17 11:45 12/17/17 20:12 (Peridex 0.12% Liq) 15 ml BID@08,20 MT 12/13/17 20:00 12/17/17 08:00 Azithromycin 500 mg/Sodium Chloride 250 ml @ 250 mls/hr Q24H IV 12/13/17 14:00 12/18/17 13:10 Potassium Chloride 100 ml @ 50 mls/hr Q2H PRN IV 12/13/17 13:30 Potassium Chloride 100 ml @ 50 mls/hr Q2H PRN IV 12/13/17 13:30 (K-Lyte Cl Eff) 50 meq UNSCH PRN PO 12/13/17 13:30 12/15/17 16:14 Potassium Chloride 100 ml @ 25 mls/hr UNSCH PRN IV 12/13/17 13:30 Potassium Chloride 100 ml @ 50 mls/hr Q2H PRN IV 12/13/17 13:30 Magnesium Sulfate 4 gm/Sodium Chloride 100 ml @ 50 mls/hr UNSCH PRN IV 12/13/17 13:30 (Mag-Ox) 800 mg UNSCH PRN PO 12/13/17 13:30 Magnesium Sulfate 2 gm/Sodium Chloride 100 ml @ 50 mls/hr UNSCH PRN IV 12/13/17 13:30 (K-Phos) 2,000 mg Q4H PRN PO 12/13/17 13:30 Sodium Phosphate 30 mmol/Sodium Chloride 250 ml @ 42 mls/hr UNSCH PRN IV 12/13/17 13:30 (K-Phos) 2,000 mg UNSCH PRN PO/TUBE 12/13/17 13:30 Potassium Phosphate 30 mmol/ Sodium Chloride 260 ml @ 42 mls/hr UNSCH PRN IV 12/13/17 13:30 (Cordarone) 200 mg DAILY PO 12/14/17 09:00 12/19/17 10:31 (Lipitor) 40 mg HS PO 12/13/17 21:00 12/18/17 20:59 (Coreg) 12.5 mg DAILY PO 12/14/17 09:00 12/19/17 12:52 (Depakote Dr) 500 mg TID PO 12/13/17 18:00 12/19/17 12:52 (Neurontin) 300 mg TID PO 12/13/17 18:00 12/19/17 12:52 (Aldactone) 25 mg BID@,18 PO 12/13/17 18:00 12/19/17 08:50 (Brethine Inj) 1 mg UNSCH PRN SQ 12/14/17 10:45 (Lasix Inj) 20 mg Q12H IV PUSH 12/16/17 00:00 12/19/17 12:52 (Catapres) 0.1 mg Q6H PRN PO 12/17/17 03:30 12/17/17 03:41 (Apresoline Inj) 10 mg Q30M PRN IV PUSH 12/17/17 05:45 12/19/17 09:23 (SoluMEDROL INJ) 40 mg Q12HR IV PUSH 12/17/17 21:00 12/19/17 08:50 (Duoneb Neb) 1 ampule Q2HR NEB PRN NEB 12/17/17 14:15 12/17/17 17:02 (Flomax) 0.8 mg HS PO 12/17/17 21:00 12/18/17 20:58 (Pravachol) 40 mg DAILY PO 12/18/17 09:00 12/19/17 08:50 (SEROquel) 25 mg BID@09,12 PO 12/18/17 09:00 12/19/17 12:52 (Prinivil) 20 mg DAILY PO 12/19/17 09:00 12/19/17 12:53 (NS Flush) 2 ml UNSCH PRN IV FLUSH 12/18/17 18:15 (NS Flush) 2 ml BID IV FLUSH 12/18/17 21:00 12/19/17 08:54 (Aspirin Chew) 81 mg DAILY PO 12/19/17 09:00 12/19/17 08:50 (Plavix) 75 mg DAILY PO 12/19/17 09:00 12/19/17 12:51 (Eliquis) 5 mg BID PO 12/19/17 11:15 12/19/17 12:52 (Norvasc) 5 mg DAILY PO 12/20/17 09:00 A/P Problem List: (1) Acute cholecystitis ICD Code: K81.0 - Acute cholecystitis Status: Acute (2) Acute respiratory failure ICD Code: J96.00 - Acute respiratory failure, unspecified whether with hypoxia or hypercapnia (3) Acute on chronic systolic (congestive) heart failure ICD Code: I50.23 - Acute on chronic systolic (congestive) heart failure (4) CAD (coronary artery disease) ICD Code: I25.10 - Atherosclerotic heart disease of [place] coronary artery without angina pectoris (5) Atrial fibrillation ICD Code: I48.91 - Unspecified atrial fibrillation (6) HTN (hypertension) ICD Code: I10 - Essential (primary) hypertension Assessment and Plan (1) Acute cholecystitis Plan: Patient evaluated by general surgery. CT abdomen and pelvis reviewed showed cholelithiasis concern for cholecystitis. Placed on clear liquid diet by general surgery, pain control provided with IV narcotics. Patient has history of CAD with cardiac stent placement on Plavix and atrial fibrillation on Eliquis, cardiology consulted for clearance for surgery. Cardiology evaluated patient, as per records Plavix continued. Eliquis hed. Patient underwent cholecystostomy drainage tube placement by IR. Broad-spectrum antibiotics as per ID. Discussed case with Dr. Martinez who cleared the patient to be discharged with cholecystostomy tube follow-up in 3 weeks with him. However Dr. Martinez recommended cardiology consultation for further recommendations regarding treatment with anticoagulation and advise regarding of when it can be hold for surgery. (2) Acute respiratory failure ICD Code: J96.00 - Acute respiratory failure, unspecified whether with hypoxia or hypercapnia Plan: Patient became short of breath and hypoxemic into the mid 80s initially, rapidly declining, agitated. The patient was administered 40 mg of IV Lasix and 125 mg IV Solu-Medrol. Patient placed on nonrebreather mask however patient very agitated refusing to use it. X-ray reviewed by me showed pulmonary congestion and possible infiltrate in the right lower lung field. EKG showed a paced rhythm. ABG showed a pH of 7.34, PCO2 48 and PO2 59. Rapid response was activated and the patient was transferred emergently to the intensive care unit. The patient was intubated emergently, and mechanically ventilated on 12/13, extubated 12/14 and room air. Patient with IV Solu-Medrol which has been tapered. DC Solu-Medrol and start the patient oral prednisone taper. (3) Acute on chronic systolic (congestive) heart failure ICD Code: I50.23 - Acute on chronic systolic (congestive) heart failure Plan: 2D echocardiogram performed on October 27, 2017 showed an ejection fraction of 25-30%. Chest x-ray shows pulmonary congestion bilaterally. Suspect pulmonary edema is possibly responsible for part of the acute respiratory decline. Continue Lasix 20 mg IV every 12 hours. (4) CAD (coronary artery disease) ICD Code: I25.10 - Atherosclerotic heart disease of [place] coronary artery without angina pectoris Plan: Radiology consulted. Cleared patient for surgical procedure. Patient had a catheterization in October [address] Hoff which showed patent LUI to LAD graft to occluded vein grafts which were medically managed. Cardiology reconsulted on 12/17/17. Dr. Livingston evaluated the patient. As per medical records obtained from [facility] Dr. Livingston states that the patient had a left heart catheterization on 03/07/18 which showed severe CAD with patent stents. Given the patient was complaining of chest pain and shortness of breath the Continue Plavix, lisinopril 10 mg, amiodarone 200 mg p.o. daily, pravastatin and Coreg. The patient status post cardiac catheterization with bare-metal stent to RCA, symptomatic today. Continue aspirin, Plavix, Lipitor. Follow-up cardiology recommendations. As per cardiology recommendations the patient may have surgery in 2 weeks if necessary. 6 weeks optimally. Follow-up with Dr. Livingston on 12/22/17. Resume Eliquis as per cardiology recommendations. (5) Atrial fibrillation ICD Code: I48.91 - Unspecified atrial fibrillation Plan: Currently in normal sinus rhythm, however patient very tachycardic at this moment. EKG obtained which showed sinus tachycardia (6) HTN (hypertension) ICD Code: I10 - Essential (primary) hypertension Plan: Blood pressure slightly elevated. The patient is on lisinopril 10 minutes p.o. daily. Increase lisinopril to 20 mg p.o. daily. BP is still severely elevated with a systolic blood pressure in the 170s. Agree with starting amlodipine 5 mg p.o. daily, continue lisinopril 20 mg p.o. daily. Continue to monitor vital signs. DVT prophylaxis: SCDs, currently on Plavix, Viigo. No chemoprophylaxis given recent cholecystostomy tubes. Discharge Planning Okay to transfer to the [facility] floor. Will discharge home with home health PT once blood pressure under control. Problem Qualifiers (1) Acute respiratory failure: Qualified Codes: J96.00 - Acute respiratory failure, unspecified whether with hypoxia or hypercapnia (2) CAD (coronary artery disease): (3) Atrial fibrillation: Qualified Codes: I48.0 - Paroxysmal atrial fibrillation (4) HTN (hypertension): Qualified Codes: I10 - Essential (primary) hypertension Raúl Tapia MD Dec 19, 2017 15:22
[2017-12-19] MEDS ORDERED: cloNIDine HCL 0.1 MG TAB PO PRN (15:30)
[2017-12-19] MEDS: AZITHROMYCIN INJ 500 MG in SODIUM CHLOR 0.9% 250 ML INJ 250 ML IV SCH (16:13)
[2017-12-19] MEDS: ACETAMINOPHEN/HYDROcodone 325 MG/5 MG TAB PO PRN (23:56)
[2017-12-19] MEDS: predniSONE 20 MG TAB PO SCH (23:57)
[2017-12-19] MEDS: ATORVASTATIN 40 MG TAB PO SCH (23:57)
[2017-12-19] MEDS: TAMSULOSIN HCL 0.4 MG CAP PO SCH (23:58)
[2017-12-20] VITALS (9 sets, daily range): BP systolic 112–139; BP diastolic 53–91; PULSE 50–63; RESP 16–18; TEMP 97.2–98; O2SAT 95–97
[2017-12-20] MEDS: PIPERACIL-TAZO 3.375 GM PREMIX 50 ML IV SCH ×3 (06:07→18:24)
[2017-12-20] MEDS: CHLORHEXIDINE 0.12% (ORAL KIT) 15 ML CUP MT SCH ×2 (08:00→20:00)
[2017-12-20 08:49] LABS: AUTOMATED NEUTROPHIL # 12.6 TH/MM3 (1.8-7.7); BASOPHIL % 0.1 % (0.0-2.0); HEMATOCRIT 30.2 % (39.0-51.0); HEMOGLOBIN 10.3 GM/DL (13.0-17.0); LYMPH % 11.8 % (9.0-44.0); LYMPHOCYTE # 1.9 TH/MM3 (1.0-4.8); MEAN CELL VOLUME 92.7 FL (80.0-100.0); MEAN CORPUSCULAR HEMOGLOBIN 31.6 PG (27.0-34.0); MEAN CORPUSCULAR HGB CONC 34.1 % (32.0-36.0); MEAN PLATELET VOLUME 7.8 FL (7.0-11.0); MONO % 8.8 % (0.0-8.0); MONOCYTE # 1.4 TH/MM3 (0-0.9); NEUT % 79.3 % (16.0-70.0); PLATELET COUNT 257 TH/MM3 (150-450); RED BLOOD COUNT 3.26 MIL/MM3 (4.50-5.90); RED CELL DISTRIBUTION WIDTH 14.8 % (11.6-17.2); WHITE BLOOD COUNT 15.8 TH/MM3 (4.0-11.0)
[2017-12-20] MEDS: DOCUSATE SODIUM 50 MG/SENNA 8.6 MG TAB PO SCH ×2 (09:00→21:00)
[2017-12-20] MEDS: CLOPIDOGREL 75 MG TAB PO SCH (09:08)
[2017-12-20] MEDS: GABAPENTIN 300 MG CAP PO SCH ×3 (09:08→18:25)
[2017-12-20] MEDS: predniSONE 20 MG TAB PO SCH ×2 (09:08→21:02)
[2017-12-20] MEDS: CARVEDILOL 12.5 MG TAB PO SCH (09:08)
[2017-12-20] MEDS: FUROSEMIDE 40 MG TAB PO SCH (09:08)
[2017-12-20] MEDS: AMIODARONE 200 MG TAB PO SCH (09:08)
[2017-12-20] MEDS: PRAVASTATIN SOD 40 MG TAB PO SCH (09:08)
[2017-12-20] MEDS: amLODIPine BESYLATE 5 MG TAB PO SCH (09:08)
[2017-12-20] MEDS: DIVALPROEX DR 500 MG TABEC PO SCH ×3 (09:09→18:25)
[2017-12-20] MEDS: QUEtiapine FUMARATE 25 MG TAB PO SCH ×2 (09:09→12:48)
[2017-12-20] MEDS: ACETAMINOPHEN/HYDROcodone 325 MG/5 MG TAB PO PRN ×2 (09:09→18:26)
[2017-12-20] MEDS: LISINOPRIL 20 MG TAB PO SCH (09:09)
[2017-12-20] MEDS: APIXABAN 5 MG TABLET PO SCH ×2 (09:09→21:02)
[2017-12-20] MEDS: SPIRONOLACTONE 25 MG TAB PO SCH ×2 (09:09→18:25)
[2017-12-20] MEDS: ASPIRIN 81 MG CHEW TAB PO SCH (09:09)
[2017-12-20] MEDS: SODIUM CHLORIDE 0.9% FLUSH 10 ML FLUSH IV FLUSH SCH ×3 (09:10→21:03)
[2017-12-20 09:13] LABS: ALBUMIN 2.1 GM/DL (3.4-5.0); AST (GOT) 14 U/L (15-37); BICARBONATE 26.3 MEQ/L (21.0-32.0); BLOOD UREA NITROGEN 45 MG/DL (7-18); CALCIUM 8.2 MG/DL (8.5-10.1); CHLORIDE 104 MEQ/L (98-107); CREATININE 1.12 MG/DL (0.60-1.30); GLOMERULAR FILTRATION RATE 64 ML/MIN (>89); GLUCOSE,RANDOM 170 MG/DL (74-106); MAGNESIUM 2.3 MG/DL (1.5-2.5); SODIUM (NA) 140 MEQ/L (136-145)
[2017-12-20 09:15] LABS: ALT (GPT) 22 U/L (12-78); PHOSPHORUS 3.3 MG/DL (2.5-4.9)
[2017-12-20 09:17] LABS: ALKALINE PHOSPHATASE 43 U/L (45-117); TOTAL BILIRUBIN ADULT 0.2 MG/DL (0.2-1.0); TOTAL PROTEIN 5.2 GM/DL (6.4-8.2)
[2017-12-20 09:52] LABS: BANDS 3 % (0-6); LYMPHOCYTES 19 % (9-44); METAMYELOCYTES 1 % (0-1); MONOCYTES 9 % (0-8); MYELOCYTES 1 % (0-0); NEUTROPHIL # MANUAL DIFF 11.4 TH/MM3 (1.8-7.7); POLYS (SEG NEUTROPHILS) 67 % (16-70)
--- NOTE | 2017-12-20 11:59 | HHI.DS ---
Discharge Summary Admission Date Dec 12, 2017 at 18:14 Discharge Date: Dec 20, 2017 Admitting Diagnosis Acute cholecystitis (1) Acute cholecystitis ICD Code: K81.0 - Acute cholecystitis Status: Acute (2) Acute respiratory failure ICD Code: J96.00 - Acute respiratory failure, unspecified whether with hypoxia or hypercapnia (3) Acute on chronic systolic (congestive) heart failure ICD Code: I50.23 - Acute on chronic systolic (congestive) heart failure (4) CAD (coronary artery disease) ICD Code: I25.10 - Atherosclerotic heart disease of [place] coronary artery without angina pectoris (5) Atrial fibrillation ICD Code: I48.91 - Unspecified atrial fibrillation (6) HTN (hypertension) ICD Code: I10 - Essential (primary) hypertension Procedures Status post cardiac catheterization. Brief History - From Admission This is a 72-year-old male patient with a known medical history of CAD with stent placement on Plavix, CHF, atrial fibrillation on Eliquis, hyperlipidemia and HTN who presented to the ED with complaints of right upper quadrant abdominal pain. Patient seen and examined in hospital room, just received IV morphine for abdominal pain, patient is alert and oriented although with intermittent lethargy. Patient expressing some confusion regarding events leading up to hospital. Upon review of records supposedly patient's abdominal pain started around sixteen hundred yesterday afternoon after eating a large lunch, the pain was located in his right upper quadrant, patient states it was very severe and sharp in nature, denies any associated nausea or vomiting. Patient denies any recent fevers, chills, cough, shortness of breath, diarrhea or dysuria. Patient states he was in his normal state of health up until yesterday afternoon. CT of the abdomen/pelvis was done in ED showing cholelithiasis and concern for mild or moderate Cholecystitis. Patient does have chronic atrial fibrillation and on Eliquis as well as previous stent placement on Plavix. General surgery has been following patient with possible cholecystectomy, although patient is taking blood thinner and Plavix and unaware of time when cardiac stents were placed. CBC/BMP: 12/20/17 0725 12/20/17 0725 Significant Findings Laboratory Tests Test 12/17/17 15:53 12/18/17 03:45 12/19/17 03:24 12/20/17 07:25 White Blood Count 16.7 TH/MM3 (4.0-11.0) 18.3 TH/MM3 (4.0-11.0) 13.4 TH/MM3 (4.0-11.0) 15.8 TH/MM3 (4.0-11.0) Red Blood Count 3.57 MIL/MM3 (4.50-5.90) 3.70 MIL/MM3 (4.50-5.90) 3.75 MIL/MM3 (4.50-5.90) 3.26 MIL/MM3 (4.50-5.90) Hemoglobin 11.4 GM/DL (13.0-17.0) 11.6 GM/DL (13.0-17.0) 11.8 GM/DL (13.0-17.0) 10.3 GM/DL (13.0-17.0) Hematocrit 33.2 % (39.0-51.0) 34.4 % (39.0-51.0) 35.2 % (39.0-51.0) 30.2 % (39.0-51.0) Neutrophils (%) (Auto) 87.4 % (16.0-70.0) 87.1 % (16.0-70.0) 83.8 % (16.0-70.0) 79.3 % (16.0-70.0) Lymphocytes (%) (Auto) 7.1 % (9.0-44.0) 8.5 % (9.0-44.0) Neutrophils # (Auto) 14.5 TH/MM3 (1.8-7.7) 15.9 TH/MM3 (1.8-7.7) 11.3 TH/MM3 (1.8-7.7) 12.6 TH/MM3 (1.8-7.7) Neutrophils % (Manual) 78 % (16-70) 83 % (16-70) Band Neutrophils % 7 % (0-6) Lymphocytes % 8 % (9-44) Neutrophils # (Manual) 14.4 TH/MM3 (1.8-7.7) 15.6 TH/MM3 (1.8-7.7) 11.4 TH/MM3 (1.8-7.7) Promyelocytes 1 % (0-0) Blood Urea Nitrogen 42 MG/DL (7-18) 45 MG/DL (7-18) 47 MG/DL (7-18) 45 MG/DL (7-18) Creatinine 1.38 MG/DL (0.60-1.30) Random Glucose 204 MG/DL (74-106) 141 MG/DL (74-106) 248 MG/DL (74-106) 170 MG/DL (74-106) Total Protein 6.3 GM/DL (6.4-8.2) 5.2 GM/DL (6.4-8.2) Albumin 2.3 GM/DL (3.4-5.0) 2.5 GM/DL (3.4-5.0) 2.1 GM/DL (3.4-5.0) Calcium Level 8.2 MG/DL (8.5-10.1) 8.4 MG/DL (8.5-10.1) 8.2 MG/DL (8.5-10.1) Phosphorus Level 2.3 MG/DL (2.5-4.9) Aspartate Amino Transf (AST/SGOT) 12 U/L (15-37) 12 U/L (15-37) 14 U/L (15-37) Estimat Glomerular Filtration Rate 51 ML/MIN (>89) 63 ML/MIN (>89) 62 ML/MIN (>89) 64 ML/MIN (>89) Myelocytes 2 % (0-0) 1 % (0-0) Nucleated Red Blood Cells 1 /100 WBC (0-0) Total Creatine Kinase 35 U/L (39-308) Triglycerides Level 221 MG/DL (42-150) Cholesterol Level 110 MG/DL (120-200) HDL Cholesterol 29.2 MG/DL (40.0-60.0) Monocytes (%) (Auto) 8.8 % (0.0-8.0) Monocytes # (Auto) 1.4 TH/MM3 (0-0.9) Monocytes % 9 % (0-8) Alkaline Phosphatase 43 U/L (45-117) Imaging Last Impressions Chest X-Ray 12/15/17 0000 Signed Impressions: Service Date/Time: Friday, December 15, 2017 10:02 - CONCLUSION: Interval extubation and continued improvement in aeration. Iain Ontiveros MD Percutaneous Cholangiogram 12/14/17 0000 Signed Impressions: Service Date/Time: Thursday, December 14, 2017 11:54 - CONCLUSION: Uncomplicated percutaneous cholecystostomy as above. Iain Ontiveros MD CT Angiography 12/13/17 0000 Signed Impressions: Service Date/Time: Wednesday, December 13, 2017 12:48 - CONCLUSION: 1. No evidence of pulmonary embolism 2. Bilateral increased interstitial markings suggestive of pulmonary edema. 3. Scattered bilateral pulmonary infiltrates Gene Ferraro MD Abdomen/Pelvis CT 12/12/17 0334 Signed Impressions: Service Date/Time: Tuesday, December 12, 2017 04:07 - CONCLUSION: 1. Cholelithiasis and with CT findings of concern for early or mild acute cholecystitis in the proper clinical setting. No duct stone or obstruction. 2. No other acute abnormalities are demonstrated. Ventral hernia containing transverse colon but without evidence of obstruction or strangulation. Aortofemoral bypass changes and appears patent. Iain Barnett MD Head CT 12/12/17 0000 Signed Impressions: Service Date/Time: Tuesday, December 12, 2017 18:42 - CONCLUSION: 1. Senescent changes with mild small vessel ischemic periventricular white matter demyelination. 2. Mild ventriculomegaly which may be slightly out of portion to the degree of atrophy. Clinical correlation for normal pressure hydrocephalus is recommended. Dino Coyne MD PE at Discharge Awake and alert nad Clear lungs BL S1S2 (+) RRR, no MRG Abdomen is soft, tender to palpation of right upper quadrant, no rebound tenderness, no guarding. No edema in bilateral extremities. Pt update on day of discharge Feels better . Eating, no n/v/d/c.No pain . No fever ro chills. BP better controlled. Hospital Course (1) Acute cholecystitis Plan: Patient evaluated by general surgery. CT abdomen and pelvis reviewed showed cholelithiasis concern for cholecystitis. Placed on clear liquid diet by general surgery, pain control provided with IV narcotics. Patient has history of CAD with cardiac stent placement on Plavix and atrial fibrillation on Eliquis, cardiology consulted for clearance for surgery. Cardiology evaluated patient, as per records Plavix continued. Eliquis hed. Patient underwent cholecystostomy drainage tube placement by IR. Broad-spectrum antibiotics as per ID. Dr. Martinez cleared the patient to be discharged with cholecystostomy tube follow-up in 3 weeks with him. However Dr. Martinez recommended cardiology consultation for further recommendations regarding treatment with anticoagulation and advise regarding of when it can be hold for surgery. Cardiology recommends restarting eliquis continue asa and plavix. (2) Acute respiratory failure ICD Code: J96.00 - Acute respiratory failure, unspecified whether with hypoxia or hypercapnia Plan: Patient became short of breath and hypoxemic into the mid 80s initially, rapidly declining, agitated. The patient was administered 40 mg of IV Lasix and 125 mg IV Solu-Medrol. Patient placed on nonrebreather mask however patient very agitated refusing to use it. X-ray reviewed by me showed pulmonary congestion and possible infiltrate in the right lower lung field. EKG showed a paced rhythm. ABG showed a pH of 7.34, PCO2 48 and PO2 59. Rapid response was activated and the patient was transferred emergently to the intensive care unit. The patient was intubated emergently, and mechanically ventilated on 12/13, extubated 12/14 and room air. Patient with IV Solu-Medrol which has been tapered. DC Solu-Medrol and start the patient oral prednisone taper. (3) Acute on chronic systolic (congestive) heart failure ICD Code: I50.23 - Acute on chronic systolic (congestive) heart failure Plan: 2D echocardiogram performed on October 27, 2017 showed an ejection fraction of 25-30%. Chest x-ray shows pulmonary congestion bilaterally. Suspect pulmonary edema is possibly responsible for part of the acute respiratory decline. Continue Lasix 20 mg IV every 12 hours. (4) CAD (coronary artery disease) ICD Code: I25.10 - Atherosclerotic heart disease of [place] coronary artery without angina pectoris Plan: Radiology consulted. Cleared patient for surgical procedure. Patient had a catheterization in October [address] Hoff which showed patent LUI to LAD graft to occluded vein grafts which were medically managed. Cardiology reconsulted on 12/17/17. Dr. Livingston evaluated the patient. As per medical records obtained from [facility] Dr. Livingston states that the patient had a left heart catheterization on 03/07/18 which showed severe CAD with patent stents. Given the patient was complaining of chest pain and shortness of breath the Continue Plavix, lisinopril 10 mg, amiodarone 200 mg p.o. daily, pravastatin and Coreg. The patient status post cardiac catheterization with bare-metal stent to RCA, symptomatic today. Continue aspirin, Plavix, Lipitor. Follow-up cardiology recommendations. As per cardiology recommendations the patient may have surgery in 2 weeks if necessary. 6 weeks optimally. Follow-up with Dr. Livingston on 12/22/17. Resume Eliquis as per cardiology recommendations. (5) Atrial fibrillation ICD Code: I48.91 - Unspecified atrial fibrillation Plan: Currently in normal sinus rhythm, however patient very tachycardic at this moment. EKG obtained which showed sinus tachycardia (6) HTN (hypertension) ICD Code: I10 - Essential (primary) hypertension Plan: Blood pressure slightly elevated. The patient is on lisinopril 10 minutes p.o. daily. Increase lisinopril to 20 mg p.o. daily. BP is still severely elevated with a systolic blood pressure in the 170s. Agree with starting amlodipine 5 mg p.o. daily, continue lisinopril 20 mg p.o. daily. Continue to monitor vital signs. DVT prophylaxis: SCDs, currently on Plavix, Eliquis. Patient improved. DC home in stable condition to follow up as OP with PCP and consultants. Pt Condition on Discharge: Stable Discharge Disposition: Disch w/ Home Health Serv Discharge Time: > 30 minutes Discharge Instructions DIET: Follow Instructions for: Heart Healthy Diet Activities you can perform: Regular-No Restrictions Follow up Referrals: Cardiology - 1 Week PCP Follow-up - 2-3 Days Pulmonology - 2 Weeks Surgical - 1 Week with Sergio Martinez MD New Medications: Hydrocodone-Acetaminophen ([place]) 5 Mg-325 Mg Tab 1 TAB PO Q6H PRN for PAIN, #30 TAB 0 Refills Aspirin (Tgt Aspirin) 81 Mg Chw 81 MG PO DAILY for Blood Clot Prevention, #30 EA Furosemide (Furosemide) 40 Mg Tab 40 MG PO DAILY for Blood Pressure Management, #30 TAB Lisinopril (Lisinopril) 20 Mg Tab 20 MG PO DAILY for Blood Pressure Management, #30 TAB Prednisone (Prednisone) 20 Mg Tab 20 MG PO BID for Shortness of Breath, #6 TAB Quetiapine (Seroquel) 25 Mg Tab 25 MG PO BID@09,12 for anxiety, #60 TAB Spironolactone (Aldactone) 25 Mg Tab 25 MG PO BID@09,18 for Blood Pressure Management, #30 TAB Continued Medications: Amiodarone (Amiodarone) 200 Mg Tab 200 MG PO DAILY for Regulate Heart Beat, #30 TAB 0 Refills Apixaban (Eliquis) 5 Mg Tab 5 MG PO BID for Blood Clot Prevention, #60 TAB 0 Refills Atorvastatin (Atorvastatin) 40 Mg Tab 40 MG PO HS for heart disease, #30 TAB Carvedilol (Coreg) 12.5 Mg Tab 12.5 MG PO DAILY for Regulate Heart Beat, #60 TAB Clopidogrel (Plavix) 75 Mg Tab 75 MG PO DAILY for Blood Clot Prevention, #30 TAB [address] (Divalproex DR) 500 Mg Tabdr 500 MG PO TID for Control Seizures, #60 TAB [address] (Duloxetine DR) 60 Mg Capdr 60 MG PO DAILY, #30 CAP 0 Refills Gabapentin (Gabapentin) 300 Mg Cap 300 MG PO TID, #90 CAP 0 Refills Multiple Vitamin (Multiple Vitamin) 1 Tab 1 TAB PO DAILY for Nutritional Supplement, TAB 0 Refills Potassium Chloride ER (Potassium Chloride ER) 20 Meq Tab 20 MEQ PO DAILY for Electrolyte Replacement, #30 TAB 0 Refills Simvastatin (Simvastatin) 20 Mg Tab 20 MG PO DAILY for Cholesterol Management, #30 TAB 0 Refills Tamsulosin (Tamsulosin) 0.4 Mg Cap 0.8 MG PO HS for Manage Prostate Problems, #60 CAP 0 Refills Tramadol (Tramadol) 50 Mg Tab 50 MG PO Q6H PRN for PAIN, TAB 0 Refills Discontinued Medications: Furosemide (Furosemide) 20 Mg Tab 20 MG PO BID for heart failure, #60 TAB 0 Refills Lisinopril (Lisinopril) 10 Mg Tab 10 MG PO DAILY for heart failure, #30 TAB 0 Refills Jessy Clark MD Dec 20, 2017 11:59
[2017-12-20] MEDS ORDERED: FURO40TA PO (12:04)
[2017-12-20] MEDS ORDERED: PRED20 PO (12:04)
[2017-12-20] MEDS ORDERED: ASPI81 PO (12:04)
[2017-12-20] MEDS ORDERED: SPIR25 PO (12:04)
[2017-12-20] MEDS ORDERED: LISI-515 PO (12:04)
[2017-12-20] MEDS ORDERED: SERO25TA PO (12:04)
[2017-12-20] MEDS ORDERED: NORC5TAB PO (12:04)
--- NOTE | 2017-12-20 12:05 | HHI.FF ---
Face to Face Verification Diagnosis: (1) Renal insufficiency (2) Acute cholecystitis (3) CAD (coronary artery disease) (4) HTN (hypertension) (5) Acute on chronic systolic (congestive) heart failure (6) Acute respiratory failure (7) Atrial fibrillation (8) Acute on chronic systolic (congestive) heart failure (9) Unstable angina (10) Hypoxia (11) CHF (congestive heart failure) Physical Therapy Order: Evaluate and Treat Home Health Nursing Order: Medical education Signs/symptoms of disease process CHF education Medication education-adverse effect Nursing assessment with vital signs I have seen patient Eliseo Goff on 12/20/17. My clinical findings support the need for the requested home health care services because: Ltd mobility - disease progression Patient has SOB I certify that my clinical findings support that this patient is homebound because: Post-op weakness Unsteady gait/balance Jessy Clark MD Dec 20, 2017 12:05
[2017-12-20] MEDS: AZITHROMYCIN INJ 500 MG in SODIUM CHLOR 0.9% 250 ML INJ 250 ML IV SCH (12:36)
[2017-12-20] MEDS ORDERED: LORazepam 2 MG/ML VIAL ONE (16:00)
--- NOTE | 2017-12-20 16:41 | HHI.PR ---
Subjective Remarks Feels better . Eating, no n/v/d/c.No pain . No fever ro chills. BP better controlled. Note tube was accidentally pulled. Will monitor patient off tube will fo US GB tomorrow; if need to place tube back will need to hold anticoag for 3 days and have heparin Objective Vitals Vital Signs Date Time Temp Pulse Resp B/P (MAP) Pulse Ox O2 Delivery O2 Flow Rate FiO2 12/20/17 12:00 97.4 62 16 112/53 (72) 95 12/20/17 08:00 97.2 59 17 139/91 (107) 97 12/20/17 08:00 58 12/20/17 05:21 97.6 56 18 125/58 (80) 96 12/20/17 04:00 56 12/20/17 02:06 98.0 61 16 131/67 (88) 97 12/20/17 00:00 63 12/19/17 23:45 97 12/19/17 22:06 97.9 61 18 152/71 (98) 98 12/19/17 20:00 63 12/19/17 18:00 60 24 128/61 (83) 96 12/19/17 17:00 62 27 116/78 (91) 85 12/19/17 16:56 22 I/O 12/19/17 12/19/17 12/19/17 12/20/17 12/20/17 12/20/17 07:00 15:00 23:00 07:00 15:00 23:00 Intake Total 340 ml Output Total 1250 ml 1330 ml Balance -910 ml -1330 ml Intake Oral 240 ml IV Total 100 ml Output Urine Total 1250 ml 1300 ml Drainage Total 30 ml # Voids 1 # Bowel Movements 20 2 Result Diagram: 12/20/17 0725 12/20/17 0725 Imaging Last Impressions Chest X-Ray 12/15/17 0000 Signed Impressions: Service Date/Time: Friday, December 15, 2017 10:02 - CONCLUSION: Interval extubation and continued improvement in aeration. Iain Ontiveros MD Percutaneous Cholangiogram 12/14/17 0000 Signed Impressions: Service Date/Time: Thursday, December 14, 2017 11:54 - CONCLUSION: Uncomplicated percutaneous cholecystostomy as above. Iain Ontiveros MD CT Angiography 12/13/17 0000 Signed Impressions: Service Date/Time: Wednesday, December 13, 2017 12:48 - CONCLUSION: 1. No evidence of pulmonary embolism 2. Bilateral increased interstitial markings suggestive of pulmonary edema. 3. Scattered bilateral pulmonary infiltrates Gene Ferraro MD Abdomen/Pelvis CT 12/12/17 0334 Signed Impressions: Service Date/Time: Tuesday, December 12, 2017 04:07 - CONCLUSION: 1. Cholelithiasis and with CT findings of concern for early or mild acute cholecystitis in the proper clinical setting. No duct stone or obstruction. 2. No other acute abnormalities are demonstrated. Ventral hernia containing transverse colon but without evidence of obstruction or strangulation. Aortofemoral bypass changes and appears patent. Iain Barnett MD Head CT 12/12/17 0000 Signed Impressions: Service Date/Time: Tuesday, December 12, 2017 18:42 - CONCLUSION: 1. Senescent changes with mild small vessel ischemic periventricular white matter demyelination. 2. Mild ventriculomegaly which may be slightly out of portion to the degree of atrophy. Clinical correlation for normal pressure hydrocephalus is recommended. Dino Coyne MD Objective Remarks GENERAL: Pleasant, in bed appears in nad. CARDIOVASCULAR: Regular rate and rhythm. RESPIRATORY: No accessory muscle use. Clear to auscultation. Breath sounds equal bilaterally. GASTROINTESTINAL: Abdomen soft, non-tender, nondistended. Hepatic and splenic margins not palpable. MUSCULOSKELETAL: Extremities without clubbing, cyanosis, or edema. No obvious deformities. NEUROLOGICAL: Awake and alert. No obvious cranial nerve deficits. Motor grossly within normal limits. Five out of 5 muscle strength in the arms and legs. Normal speech. PSYCHIATRIC: Appropriate mood and affect; insight and judgment normal. Procedures Status post cardiac catheterization. A/P Problem List: (1) Acute cholecystitis ICD Code: K81.0 - Acute cholecystitis Status: Acute (2) Acute respiratory failure ICD Code: J96.00 - Acute respiratory failure, unspecified whether with hypoxia or hypercapnia (3) Acute on chronic systolic (congestive) heart failure ICD Code: I50.23 - Acute on chronic systolic (congestive) heart failure (4) CAD (coronary artery disease) ICD Code: I25.10 - Atherosclerotic heart disease of [place] coronary artery without angina pectoris (5) Atrial fibrillation ICD Code: I48.91 - Unspecified atrial fibrillation (6) HTN (hypertension) ICD Code: I10 - Essential (primary) hypertension Assessment and Plan (1) Acute cholecystitis Plan: Patient evaluated by general surgery. CT abdomen and pelvis reviewed showed cholelithiasis concern for cholecystitis. Placed on clear liquid diet by general surgery, pain control provided with IV narcotics. Patient has history of CAD with cardiac stent placement on Plavix and atrial fibrillation on Eliquis, cardiology consulted for clearance for surgery. Cardiology evaluated patient, as per records Plavix continued. Eliquis hed. Patient underwent cholecystostomy drainage tube placement by IR. Broad-spectrum antibiotics as per ID. Dr. Martinez cleared the patient to be discharged with cholecystostomy tube follow-up in 3 weeks with him. However Dr. Martinez recommended cardiology consultation for further recommendations regarding treatment with anticoagulation and advise regarding of when it can be hold for surgery. Cardiology recommends restarting eliquis continue asa and plavix. 12/20/17 DILIA tube accidentally pulled. Discussed with Dr Yaya MORRIS, unable to place the Jtube in because patient is anticoagulated. Patient is however clinically stable at this time. Will monitor , plan for US gallbladder tomorrow , if worsened clinically will call IR for eval , need to hold anticoagulation for 3 days befire placing j tube back. Will have to swith to heparin meanwhile. (2) Acute respiratory failure ICD Code: J96.00 - Acute respiratory failure, unspecified whether with hypoxia or hypercapnia Plan: Patient became short of breath and hypoxemic into the mid 80s initially, rapidly declining, agitated. The patient was administered 40 mg of IV Lasix and 125 mg IV Solu-Medrol. Patient placed on nonrebreather mask however patient very agitated refusing to use it. X-ray reviewed by me showed pulmonary congestion and possible infiltrate in the right lower lung field. EKG showed a paced rhythm. ABG showed a pH of 7.34, PCO2 48 and PO2 59. Rapid response was activated and the patient was transferred emergently to the intensive care unit. The patient was intubated emergently, and mechanically ventilated on 12/13, extubated 12/14 and room air. Patient with IV Solu-Medrol which has been tapered. DC Solu-Medrol and start the patient oral prednisone taper. (3) Acute on chronic systolic (congestive) heart failure ICD Code: I50.23 - Acute on chronic systolic (congestive) heart failure Plan: 2D echocardiogram performed on October 27, 2017 showed an ejection fraction of 25-30%. Chest x-ray shows pulmonary congestion bilaterally. Suspect pulmonary edema is possibly responsible for part of the acute respiratory decline. Continue Lasix 20 mg IV every 12 hours. (4) CAD (coronary artery disease) ICD Code: I25.10 - Atherosclerotic heart disease of [place] coronary artery without angina pectoris Plan: Radiology consulted. Cleared patient for surgical procedure. Patient had a catheterization in October [address] Hoff which showed patent LUI to LAD graft to occluded vein grafts which were medically managed. Cardiology reconsulted on 12/17/17. Dr. Livingston evaluated the patient. As per medical records obtained from [facility] Dr. Livingston states that the patient had a left heart catheterization on 03/07/18 which showed severe CAD with patent stents. Given the patient was complaining of chest pain and shortness of breath the Continue Plavix, lisinopril 10 mg, amiodarone 200 mg p.o. daily, pravastatin and Coreg. The patient status post cardiac catheterization with bare-metal stent to RCA, symptomatic today. Continue aspirin, Plavix, Lipitor. Follow-up cardiology recommendations. As per cardiology recommendations the patient may have surgery in 2 weeks if necessary. 6 weeks optimally. Follow-up with Dr. Livingston on 12/22/17. Resume Eliquis as per cardiology recommendations. (5) Atrial fibrillation ICD Code: I48.91 - Unspecified atrial fibrillation Plan: Currently in normal sinus rhythm, however patient very tachycardic at this moment. EKG obtained which showed sinus tachycardia (6) HTN (hypertension) ICD Code: I10 - Essential (primary) hypertension Plan: Blood pressure slightly elevated. The patient is on lisinopril 10 minutes p.o. daily. Increase lisinopril to 20 mg p.o. daily. BP is still severely elevated with a systolic blood pressure in the 170s. Agree with starting amlodipine 5 mg p.o. daily, continue lisinopril 20 mg p.o. daily. Continue to monitor vital signs. DVT prophylaxis: SCDs, currently on Plavix, Eliquis. Patient is deconditioning. PT to re evaluate patient 12/20/17 DILIA tube accidentally pulled. Discussed with Dr Yaya MORRIS, unable to place the Jtube in because patient is anticoagulated. Patient is however clinically stable at this time. Will monitor , plan for US gallbladder tomorrow , if worsened clinically will call IR for eval , need to hold anticoagulation for 3 days befire placing j tube back. Will have to swith to heparin meanwhile. Problem Qualifiers (1) Acute respiratory failure: Qualified Codes: J96.00 - Acute respiratory failure, unspecified whether with hypoxia or hypercapnia (2) CAD (coronary artery disease): (3) Atrial fibrillation: Qualified Codes: I48.0 - Paroxysmal atrial fibrillation (4) HTN (hypertension): Qualified Codes: I10 - Essential (primary) hypertension Jessy Clark MD Dec 20, 2017 16:41
[2017-12-20] MEDS ORDERED: IOHEXOL 350 MG/ML 50 ML BTL (for RAD DIAG) OTHER ONE (16:51)
--- NOTE | 2017-12-20 16:56 | PD.CARD.PN ---
Subjective Subjective Remarks assymptomatic Objective Medications Current Medications Medications (Trade) Dose Ordered Sig/Eliot Route Start Time Stop Time Status Last Admin (Tylenol) 650 mg Q4H PRN PO 12/12/17 06:00 (Zofran Inj) 4 mg Q6H PRN IVP 12/12/17 06:00 (Narcan Inj) 0.4 mg UNSCH PRN IV PUSH 12/12/17 06:00 (Lillian-Colace) 1 tab BID PO 12/12/17 09:00 12/17/17 08:53 (Milk Of Magnesia Liq) 30 ml Q12H PRN PO 12/12/17 06:00 (Senokot) 17.2 mg Q12H PRN PO 12/12/17 06:00 (Dulcolax Supp) 10 mg DAILY PRN RECTAL 12/12/17 06:00 (Lactulose Liq) 30 ml DAILY PRN PO 12/12/17 06:00 Piperacillin Sod/ Tazobactam Sod 50 ml @ 100 mls/hr Q6H IV 12/12/17 06:00 12/20/17 06:07 (Morphine Inj) 2 mg Q4H PRN IV 12/12/17 11:45 12/19/17 16:51 ([place] 5-325 Mg) 1 tab Q6H PRN PO 12/12/17 11:45 12/18/17 13:10 ([place] 5-325 Mg) 2 tab Q6H PRN PO 12/12/17 11:45 12/20/17 09:09 (Peridex 0.12% Liq) 15 ml BID@08,20 MT 12/13/17 20:00 12/17/17 08:00 Azithromycin 500 mg/Sodium Chloride 250 ml @ 250 mls/hr Q24H IV 12/13/17 14:00 12/19/17 16:13 (Cordarone) 200 mg DAILY PO 12/14/17 09:00 12/20/17 09:08 (Lipitor) 40 mg HS PO 12/13/17 21:00 12/19/17 23:57 (Coreg) 12.5 mg DAILY PO 12/14/17 09:00 12/20/17 09:08 (Depakote Dr) 500 mg TID PO 12/13/17 18:00 12/20/17 12:48 (Neurontin) 300 mg TID PO 12/13/17 18:00 12/20/17 12:48 (Aldactone) 25 mg BID@,18 PO 12/13/17 18:00 12/20/17 09:09 (Brethine Inj) 1 mg UNSCH PRN SQ 12/14/17 10:45 (Apresoline Inj) 10 mg Q30M PRN IV PUSH 12/17/17 05:45 12/19/17 09:23 (Duoneb Neb) 1 ampule Q2HR NEB PRN NEB 12/17/17 14:15 12/17/17 17:02 (Flomax) 0.8 mg HS PO 12/17/17 21:00 12/19/17 23:58 (Pravachol) 40 mg DAILY PO 12/18/17 09:00 12/20/17 09:08 (SEROquel) 25 mg BID@09,12 PO 12/18/17 09:00 12/20/17 12:48 (Prinivil) 20 mg DAILY PO 12/19/17 09:00 12/20/17 09:09 (NS Flush) 2 ml UNSCH PRN IV FLUSH 12/18/17 18:15 (NS Flush) 2 ml BID IV FLUSH 12/18/17 21:00 12/20/17 09:10 (Aspirin Chew) 81 mg DAILY PO 12/19/17 09:00 12/20/17 09:09 (Plavix) 75 mg DAILY PO 12/19/17 09:00 12/20/17 09:08 (Eliquis) 5 mg BID PO 12/19/17 11:15 12/20/17 09:09 (Norvasc) 5 mg DAILY PO 12/20/17 09:00 12/20/17 09:08 (Catapres) 0.1 mg Q6H PRN PO 12/19/17 15:30 (Lasix) 40 mg DAILY PO 12/20/17 09:00 12/20/17 09:08 (Deltasone) 20 mg BID PO 12/19/17 21:00 12/20/17 09:08 Vital Signs / I&O Vital Signs Date Time Temp Pulse Resp B/P (MAP) Pulse Ox O2 Delivery O2 Flow Rate FiO2 12/20/17 16:00 97.8 61 18 112/62 (79) 97 12/20/17 12:00 97.4 62 16 112/53 (72) 95 12/20/17 08:00 97.2 59 17 139/91 (107) 97 12/20/17 08:00 58 12/20/17 05:21 97.6 56 18 125/58 (80) 96 12/20/17 04:00 56 12/20/17 02:06 98.0 61 16 131/67 (88) 97 12/20/17 00:00 63 12/19/17 23:45 97 12/19/17 22:06 97.9 61 18 152/71 (98) 98 12/19/17 20:00 63 12/19/17 18:00 60 24 128/61 (83) 96 12/19/17 17:00 62 27 116/78 (91) 85 12/19/17 16:56 22 I/O 12/19/17 12/19/17 12/19/17 12/20/17 12/20/17 12/20/17 07:00 15:00 23:00 07:00 15:00 23:00 Intake Total 340 ml Output Total 1250 ml 1330 ml Balance -910 ml -1330 ml Intake Oral 240 ml IV Total 100 ml Output Urine Total 1250 ml 1300 ml Drainage Total 30 ml # Voids 1 # Bowel Movements 20 2 Physical Exam GENERAL: SKIN: Warm and dry. HEAD: Normocephalic. EYES: No scleral icterus. No injection or drainage. NECK: Supple, trachea midline. No JVD or lymphadenopathy. CARDIOVASCULAR: Regular rate and rhythm without murmurs, gallops, or rubs. RESPIRATORY: Breath sounds equal bilaterally. No accessory muscle use. GASTROINTESTINAL: Abdomen soft, non-tender, nondistended. MUSCULOSKELETAL: No cyanosis, or edema. BACK: Nontender without obvious deformity. No CVA tenderness. Laboratory Laboratory Tests Test 12/20/17 07:25 White Blood Count 15.8 TH/MM3 Red Blood Count 3.26 MIL/MM3 Hemoglobin 10.3 GM/DL Hematocrit 30.2 % Mean Corpuscular Volume 92.7 FL Mean Corpuscular Hemoglobin 31.6 PG Mean Corpuscular Hemoglobin Concent 34.1 % Red Cell Distribution Width 14.8 % Platelet Count 257 TH/MM3 Mean Platelet Volume 7.8 FL Neutrophils (%) (Auto) 79.3 % Lymphocytes (%) (Auto) 11.8 % Monocytes (%) (Auto) 8.8 % Eosinophils (%) (Auto) 0.0 % Basophils (%) (Auto) 0.1 % Neutrophils # (Auto) 12.6 TH/MM3 Lymphocytes # (Auto) 1.9 TH/MM3 Monocytes # (Auto) 1.4 TH/MM3 Eosinophils # (Auto) 0.0 TH/MM3 Basophils # (Auto) 0.0 TH/MM3 CBC Comment AUTO DIFF Differential Total Cells Counted 100 Neutrophils % (Manual) 67 % Band Neutrophils % 3 % Lymphocytes % 19 % Monocytes % 9 % Neutrophils # (Manual) 11.4 TH/MM3 Metamyelocytes 1 % Myelocytes 1 % Differential Comment FINAL DIFF MANUAL Platelet Estimate NORMAL Platelet Morphology Comment NORMAL Blood Urea Nitrogen 45 MG/DL Creatinine 1.12 MG/DL Random Glucose 170 MG/DL Total Protein 5.2 GM/DL Albumin 2.1 GM/DL Calcium Level 8.2 MG/DL Phosphorus Level 3.3 MG/DL Magnesium Level 2.3 MG/DL Alkaline Phosphatase 43 U/L Aspartate Amino Transf (AST/SGOT) 14 U/L Alanine Aminotransferase (ALT/SGPT) 22 U/L Total Bilirubin 0.2 MG/DL Sodium Level 140 MEQ/L Potassium Level 4.0 MEQ/L Chloride Level 104 MEQ/L Carbon Dioxide Level 26.3 MEQ/L Anion Gap 10 MEQ/L Estimat Glomerular Filtration Rate 64 ML/MIN Assessment and Plan Problem List: (1) CAD (coronary artery disease) ICD Codes: I25.10 - Atherosclerotic heart disease of [place] coronary artery without angina pectoris (2) HTN (hypertension) ICD Codes: I10 - Essential (primary) hypertension (3) Acute on chronic systolic (congestive) heart failure ICD Codes: I50.23 - Acute on chronic systolic (congestive) heart failure (4) Unstable angina ICD Codes: I20.0 - Unstable angina (5) unstabk (6) Hypoxia ICD Codes: R09.02 - Hypoxemia (7) CHF (congestive heart failure) ICD Codes: I50.9 - Heart failure, unspecified (8) Atrial fibrillation ICD Codes: I48.91 - Unspecified atrial fibrillation Assessment and Plan 1.) CAD - pod#2 bms rca - assymptomatic, continue aspirin, plavix, lipitor; can have nc surg 2 weeks if necessary, 6 weeks optimally, d/w Dr Martinez; f/u with me 12/22/17, d/w patient 2.) Cardiomyopathy - euvolemic by rhc, continue lisinopril, coreg 3.) Afib - rate controlled, assymptomatic, restart eliquis 4.) HTN - add norvasc 5 mg qd Problem Qualifiers (1) CAD (coronary artery disease): (2) HTN (hypertension): Qualified Codes: I10 - Essential (primary) hypertension (3) Atrial fibrillation: Qualified Codes: I48.0 - Paroxysmal atrial fibrillation Alvarez Livingston MD Dec 20, 2017 16:56
--- NOTE | 2017-12-20 17:15 | PD.RAD ---
Post Procedure Progress Note Pre Procedure Diagnosis: (1) Atrial fibrillation (2) Acute cholecystitis Post Procedure Diagnosis: (1) Acute cholecystitis (2) Atrial fibrillation Procedure Date: Dec 20, 2017 Supervising Radiologist: Avinash Javier JR Proceduralist/Assist: Cullen Gomez, RT(R), Martha Jarvis, RT(R) Anesthesia: Other Plan of Activity Patient to Unit: Nursing Unit Patient Condition: Good Additional Comments: Pt's angela tube pulled out. Pt brought to IR to try to replace the tube down the existing tract. Unable to get fully down tract to replace. Cannot perform new stick access to the GB as pt is on 3 antiplatelet agents. Discussed with Dr Clark. Suggest a repeat US of the GB tomorrow to asses distention/inflammation. See how pt does without the tube. Make a call tomorrow on whether to hold antiplatelet drugs in preparation for replacement or continue to watch pt to see if replacement is needed. May consider performing Tbili blood draw so we have a baseline. See PACS Report for procedural detail/treatment Jr. Yaya,Avinash Martin MD Dec 20, 2017 17:15
--- NOTE | 2017-12-20 17:35 | RADRPT ---
EXAM DATE/TIME: 12/20/2017 16:02 [facility] COMPARISON : No previous studies available for comparison. INDICATIONS : Patient presents with disloged cholecystostomy tube in need of evaluation. PAST MEDICAL HISTORY : 1. Hypertension. 2. Cardiovascular disease. 3. Afib PAST SURGICAL HISTORY : 1. CABG 2. Carotid stent. 3. AICD MEDICATIONS: 1. Fentanyl 100 mcg IV 2. Ativan 1 mg IV 3. 5 CC Omni 350 IMAGING STUDIES: The patient's cholecystostomy tube was pulled out. The patient was brought to the interventional suit e to assess an attempt for placement. Sterile aseptic technique was utilized. Attempts at passing zachariah n the existing tract were unsuccessful. I was unable to gain access to the gallbladder lumen. The pat ient is on 3 anti-platelet agents and therefore a fresh stick access cannot be performed. ASSESSMENT: Unable to gain access to the gallbladder lumen through the existing tract. PLAN: I spoke with Dr. Clark. A repeat ultrasound of the gallbladder will be performed tomorrow for harley whelan. We will see how the patient does from a clinical standpoint as well. Consideration could be made t o repeat total bilirubin evaluation for baseline. If the patient does well clinically consideration c ould be made to foregoing the tube. If the patient does not tolerate absence of the tube then replace ment would be necessary. The patient will need to be off the antiplatelet agents for this to be perfo rmed. TIME SPENT: 10 Avinash Javier Jr., MD on December 20, 2017 at 17:29 Board Certified Radiologist. This report was verified electronically.
[2017-12-20] MEDS: TAMSULOSIN HCL 0.4 MG CAP PO SCH (21:02)
[2017-12-20] MEDS: ATORVASTATIN 40 MG TAB PO SCH (21:03)
[2017-12-21] VITALS: BP 152/67; PULSE 65; PULSE 67; RESP 16; TEMP 97.6; O2SAT 95
[2017-12-21] MEDS: ACETAMINOPHEN/HYDROcodone 325 MG/5 MG TAB PO PRN ×3 (00:06→17:30)
[2017-12-21] MEDS: PIPERACIL-TAZO 3.375 GM PREMIX 50 ML IV SCH ×4 (00:08→17:30)
[2017-12-21 04:00] VITALS: BP 145/65; PULSE 53; PULSE 55; RESP 16; TEMP 98; O2SAT 95
[2017-12-21] MEDS: CHLORHEXIDINE 0.12% (ORAL KIT) 15 ML CUP MT SCH ×2 (07:18→20:00)
[2017-12-21 08:00] VITALS: BP 149/66; PULSE 51; PULSE 59; RESP 20; TEMP 97.5; O2SAT 95
[2017-12-21] MEDS: CARVEDILOL 12.5 MG TAB PO SCH (09:00)
[2017-12-21] MEDS: DOCUSATE SODIUM 50 MG/SENNA 8.6 MG TAB PO SCH ×2 (09:00→21:00)
[2017-12-21] MEDS: predniSONE 20 MG TAB PO SCH ×2 (09:07→22:11)
[2017-12-21] MEDS: GABAPENTIN 300 MG CAP PO SCH ×3 (09:07→17:29)
[2017-12-21] MEDS: PRAVASTATIN SOD 40 MG TAB PO SCH (09:07)
[2017-12-21] MEDS: QUEtiapine FUMARATE 25 MG TAB PO SCH ×2 (09:07→12:00)
[2017-12-21] MEDS: AMIODARONE 200 MG TAB PO SCH (09:07)
[2017-12-21] MEDS: SPIRONOLACTONE 25 MG TAB PO SCH ×2 (09:07→17:33)
[2017-12-21] MEDS: LISINOPRIL 20 MG TAB PO SCH (09:08)
[2017-12-21] MEDS: CLOPIDOGREL 75 MG TAB PO SCH (09:08)
[2017-12-21] MEDS: APIXABAN 5 MG TABLET PO SCH ×2 (09:08→22:11)
[2017-12-21] MEDS: DIVALPROEX DR 500 MG TABEC PO SCH ×3 (09:08→17:30)
[2017-12-21] MEDS: amLODIPine BESYLATE 5 MG TAB PO SCH (09:08)
[2017-12-21] MEDS: ASPIRIN 81 MG CHEW TAB PO SCH (09:08)
[2017-12-21] MEDS: FUROSEMIDE 40 MG TAB PO SCH (09:09)
[2017-12-21] MEDS: SODIUM CHLORIDE 0.9% FLUSH 10 ML FLUSH IV FLUSH SCH ×2 (09:09→22:11)
[2017-12-21 12:00] VITALS: BP 148/67; PULSE 58; PULSE 59; RESP 17; TEMP 97.3; O2SAT 95
--- NOTE | 2017-12-21 12:48 | PD.CARD.PN ---
Subjective Subjective Remarks assymptomatic Objective Medications Current Medications Medications (Trade) Dose Ordered Sig/Eliot Route Start Time Stop Time Status Last Admin (Tylenol) 650 mg Q4H PRN PO 12/12/17 06:00 (Zofran Inj) 4 mg Q6H PRN IVP 12/12/17 06:00 (Narcan Inj) 0.4 mg UNSCH PRN IV PUSH 12/12/17 06:00 (Lillian-Colace) 1 tab BID PO 12/12/17 09:00 12/17/17 08:53 (Milk Of Magnesia Liq) 30 ml Q12H PRN PO 12/12/17 06:00 (Senokot) 17.2 mg Q12H PRN PO 12/12/17 06:00 (Dulcolax Supp) 10 mg DAILY PRN RECTAL 12/12/17 06:00 (Lactulose Liq) 30 ml DAILY PRN PO 12/12/17 06:00 Piperacillin Sod/ Tazobactam Sod 50 ml @ 100 mls/hr Q6H IV 12/12/17 06:00 12/21/17 12:24 (Morphine Inj) 2 mg Q4H PRN IV 12/12/17 11:45 12/19/17 16:51 ([place] 5-325 Mg) 1 tab Q6H PRN PO 12/12/17 11:45 12/18/17 13:10 ([place] 5-325 Mg) 2 tab Q6H PRN PO 12/12/17 11:45 12/21/17 06:34 (Peridex 0.12% Liq) 15 ml BID@08,20 MT 12/13/17 20:00 12/17/17 08:00 Azithromycin 500 mg/Sodium Chloride 250 ml @ 250 mls/hr Q24H IV 12/13/17 14:00 12/19/17 16:13 (Cordarone) 200 mg DAILY PO 12/14/17 09:00 12/21/17 09:07 (Lipitor) 40 mg HS PO 12/13/17 21:00 12/20/17 21:03 (Coreg) 12.5 mg DAILY PO 12/14/17 09:00 12/20/17 09:08 (Depakote Dr) 500 mg TID PO 12/13/17 18:00 12/21/17 09:08 (Neurontin) 300 mg TID PO 12/13/17 18:00 12/21/17 09:07 (Aldactone) 25 mg BID@18 PO 12/13/17 18:00 12/21/17 09:07 (Brethine Inj) 1 mg UNSCH PRN SQ 12/14/17 10:45 (Apresoline Inj) 10 mg Q30M PRN IV PUSH 12/17/17 05:45 12/19/17 09:23 (Duoneb Neb) 1 ampule Q2HR NEB PRN NEB 12/17/17 14:15 12/17/17 17:02 (Flomax) 0.8 mg HS PO 12/17/17 21:00 12/20/17 21:02 (Pravachol) 40 mg DAILY PO 12/18/17 09:00 12/21/17 09:07 (SEROquel) 25 mg BID@09,12 PO 12/18/17 09:00 12/21/17 09:07 (Prinivil) 20 mg DAILY PO 12/19/17 09:00 12/21/17 09:08 (NS Flush) 2 ml UNSCH PRN IV FLUSH 12/18/17 18:15 (NS Flush) 2 ml BID IV FLUSH 12/18/17 21:00 12/21/17 09:09 (Aspirin Chew) 81 mg DAILY PO 12/19/17 09:00 12/21/17 09:08 (Plavix) 75 mg DAILY PO 12/19/17 09:00 12/21/17 09:08 (Eliquis) 5 mg BID PO 12/19/17 11:15 12/21/17 09:08 (Norvasc) 5 mg DAILY PO 12/20/17 09:00 12/21/17 09:08 (Catapres) 0.1 mg Q6H PRN PO 12/19/17 15:30 (Lasix) 40 mg DAILY PO 12/20/17 09:00 12/21/17 09:09 (Deltasone) 20 mg BID PO 12/19/17 21:00 12/21/17 09:07 Vital Signs / I&O Vital Signs Date Time Temp Pulse Resp B/P (MAP) Pulse Ox O2 Delivery O2 Flow Rate FiO2 12/21/17 08:00 51 12/21/17 08:00 97.5 59 20 149/66 (93) 95 12/21/17 07:45 Room Air 12/21/17 04:00 53 12/21/17 04:00 98.0 55 16 145/65 (91) 95 12/21/17 04:00 Room Air 12/21/17 00:00 Room Air 12/21/17 00:00 97.6 67 16 152/67 (95) 95 12/21/17 00:00 65 12/20/17 20:00 58 12/20/17 20:00 97.7 61 16 112/57 (75) 97 12/20/17 20:00 Room Air 12/20/17 17:47 97 21 12/20/17 16:00 97.8 61 18 112/62 (79) 97 12/20/17 16:00 Room Air 12/20/17 16:00 50 I/O 12/20/17 12/20/17 12/20/17 12/21/17 12/21/17 12/21/17 07:00 15:00 23:00 07:00 15:00 23:00 Intake Total 360 ml 50 ml Output Total 600 ml 400 ml Balance -240 ml -350 ml Intake Oral 360 ml IV Total 50 ml Output Urine Total 600 ml 400 ml # Voids 1 2 # Bowel Movements 2 Physical Exam GENERAL: SKIN: Warm and dry. HEAD: Normocephalic. EYES: No scleral icterus. No injection or drainage. NECK: Supple, trachea midline. No JVD or lymphadenopathy. CARDIOVASCULAR: Regular rate and rhythm without murmurs, gallops, or rubs. RESPIRATORY: Breath sounds equal bilaterally. No accessory muscle use. GASTROINTESTINAL: Abdomen soft, non-tender, nondistended. MUSCULOSKELETAL: No cyanosis, or edema. BACK: Nontender without obvious deformity. No CVA tenderness. Assessment and Plan Problem List: (1) CAD (coronary artery disease) ICD Codes: I25.10 - Atherosclerotic heart disease of [place] coronary artery without angina pectoris (2) HTN (hypertension) ICD Codes: I10 - Essential (primary) hypertension (3) Acute on chronic systolic (congestive) heart failure ICD Codes: I50.23 - Acute on chronic systolic (congestive) heart failure (4) Unstable angina ICD Codes: I20.0 - Unstable angina (5) unstabk (6) Hypoxia ICD Codes: R09.02 - Hypoxemia (7) CHF (congestive heart failure) ICD Codes: I50.9 - Heart failure, unspecified (8) Atrial fibrillation ICD Codes: I48.91 - Unspecified atrial fibrillation Assessment and Plan 1.) CAD - pod#3 bms rca - assymptomatic, continue aspirin, plavix, lipitor; can have nc surg 2 weeks if necessary, 6 weeks optimally, d/w Dr Martinez; f/u with me 12/22/17, d/w patient 2.) Cardiomyopathy - euvolemic by rhc, continue lisinopril, coreg 3.) Afib - rate controlled, assymptomatic, continue eliquis 4.) HTN - add norvasc 5 mg qd Problem Qualifiers (1) CAD (coronary artery disease): (2) HTN (hypertension): Qualified Codes: I10 - Essential (primary) hypertension (3) Atrial fibrillation: Qualified Codes: I48.0 - Paroxysmal atrial fibrillation Alvarez Livingston MD Dec 21, 2017 12:48
[2017-12-21] MEDS: AZITHROMYCIN INJ 500 MG in SODIUM CHLOR 0.9% 250 ML INJ 250 ML IV SCH (13:00)
[2017-12-21] MEDS: MORPHINE SULFATE 2 MG/ML INJ IV PRN (14:17)
--- NOTE | 2017-12-21 15:34 | HHI.PR ---
Subjective Remarks In bed he is eating fairly well. No n/v/d/c. Patient says he has pain in his RUQ. No n/v/d/c. No fever or chills. Objective Vitals Vital Signs Date Time Temp Pulse Resp B/P (MAP) Pulse Ox O2 Delivery O2 Flow Rate FiO2 12/21/17 12:00 97.3 59 17 148/67 (94) 95 12/21/17 12:00 58 12/21/17 08:00 51 12/21/17 08:00 97.5 59 20 149/66 (93) 95 12/21/17 07:45 Room Air 12/21/17 04:00 53 12/21/17 04:00 98.0 55 16 145/65 (91) 95 12/21/17 04:00 Room Air 12/21/17 00:00 Room Air 12/21/17 00:00 97.6 67 16 152/67 (95) 95 12/21/17 00:00 65 12/20/17 20:00 58 12/20/17 20:00 97.7 61 16 112/57 (75) 97 12/20/17 20:00 Room Air 12/20/17 17:47 97 21 12/20/17 16:00 97.8 61 18 112/62 (79) 97 12/20/17 16:00 Room Air 12/20/17 16:00 50 I/O 12/20/17 12/20/17 12/20/17 12/21/17 12/21/17 12/21/17 07:00 15:00 23:00 07:00 15:00 23:00 Intake Total 360 ml 50 ml Output Total 600 ml 400 ml Balance -240 ml -350 ml Intake Oral 360 ml IV Total 50 ml Output Urine Total 600 ml 400 ml # Voids 1 2 # Bowel Movements 2 Result Diagram: 12/20/1772412/20/1725 Objective Remarks GENERAL: Pleasant, in bed appears in nad. CARDIOVASCULAR: Regular rate and rhythm. RESPIRATORY: No accessory muscle use. Clear to auscultation. Breath sounds equal bilaterally. GASTROINTESTINAL: Abdomen soft, non-tender, nondistended. Hepatic and splenic margins not palpable. MUSCULOSKELETAL: Extremities without clubbing, cyanosis, or edema. No obvious deformities. NEUROLOGICAL: Awake and alert. No obvious cranial nerve deficits. Motor grossly within normal limits. Five out of 5 muscle strength in the arms and legs. Normal speech. PSYCHIATRIC: Appropriate mood and affect; insight and judgment normal. Procedures Status post cardiac catheterization. A/P Problem List: (1) Acute cholecystitis ICD Code: K81.0 - Acute cholecystitis Status: Acute (2) Acute respiratory failure ICD Code: J96.00 - Acute respiratory failure, unspecified whether with hypoxia or hypercapnia (3) Acute on chronic systolic (congestive) heart failure ICD Code: I50.23 - Acute on chronic systolic (congestive) heart failure (4) CAD (coronary artery disease) ICD Code: I25.10 - Atherosclerotic heart disease of [place] coronary artery without angina pectoris (5) Atrial fibrillation ICD Code: I48.91 - Unspecified atrial fibrillation (6) HTN (hypertension) ICD Code: I10 - Essential (primary) hypertension Assessment and Plan (1) Acute cholecystitis Plan: Patient evaluated by general surgery. CT abdomen and pelvis reviewed showed cholelithiasis concern for cholecystitis. Placed on clear liquid diet by general surgery, pain control provided with IV narcotics. Patient has history of CAD with cardiac stent placement on Plavix and atrial fibrillation on Eliquis, cardiology consulted for clearance for surgery. Cardiology evaluated patient, as per records Plavix continued. Eliquis hed. Patient underwent cholecystostomy drainage tube placement by IR. Broad-spectrum antibiotics as per ID. Dr. Martinez cleared the patient to be discharged with cholecystostomy tube follow-up in 3 weeks with him. However Dr. Martinez recommended cardiology consultation for further recommendations regarding treatment with anticoagulation and advise regarding of when it can be hold for surgery. Cardiology recommends restarting eliquis continue asa and plavix. 12/20/17 DILIA tube accidentally pulled. Discussed with Dr Yaya MORRIS, unable to place the Jtube in because patient is anticoagulated. Patient is however clinically stable at this time. Will monitor , plan for US gallbladder 12/21 , IR to decide if need for placement of tube back. Need to hold anticoagulation for 3 days before placing j tube back. Will have to switch to heparin meanwhile. (2) Acute respiratory failure ICD Code: J96.00 - Acute respiratory failure, unspecified whether with hypoxia or hypercapnia Plan: Patient became short of breath and hypoxemic into the mid 80s initially, rapidly declining, agitated. The patient was administered 40 mg of IV Lasix and 125 mg IV Solu-Medrol. Patient placed on nonrebreather mask however patient very agitated refusing to use it. X-ray reviewed by me showed pulmonary congestion and possible infiltrate in the right lower lung field. EKG showed a paced rhythm. ABG showed a pH of 7.34, PCO2 48 and PO2 59. Rapid response was activated and the patient was transferred emergently to the intensive care unit. The patient was intubated emergently, and mechanically ventilated on 12/13, extubated 12/14 and room air. Patient with IV Solu-Medrol which has been tapered. DC Solu-Medrol and start the patient oral prednisone taper. (3) Acute on chronic systolic (congestive) heart failure ICD Code: I50.23 - Acute on chronic systolic (congestive) heart failure Plan: 2D echocardiogram performed on October 27, 2017 showed an ejection fraction of 25-30%. Chest x-ray shows pulmonary congestion bilaterally. Suspect pulmonary edema is possibly responsible for part of the acute respiratory decline. Continue Lasix 20 mg IV every 12 hours. (4) CAD (coronary artery disease) ICD Code: I25.10 - Atherosclerotic heart disease of [place] coronary artery without angina pectoris Plan: Radiology consulted. Cleared patient for surgical procedure. Patient had a catheterization in October [address] Hoff which showed patent LUI to LAD graft to occluded vein grafts which were medically managed. Cardiology reconsulted on 12/17/17. Dr. Livingston evaluated the patient. As per medical records [facility] Dr. Livingston states that the patient had a left heart catheterization on 03/07/18 which showed severe CAD with patent stents. Given the patient was complaining of chest pain and shortness of breath the Continue Plavix, lisinopril 10 mg, amiodarone 200 mg p.o. daily, pravastatin and Coreg. The patient status post cardiac catheterization with bare-metal stent to RCA, symptomatic today. Continue aspirin, Plavix, Lipitor. Follow-up cardiology recommendations. As per cardiology recommendations the patient may have surgery in 2 weeks if necessary. 6 weeks optimally. Follow-up with Dr. Livingston on 12/22/17. Resume Eliquis as per cardiology recommendations. (5) Atrial fibrillation ICD Code: I48.91 - Unspecified atrial fibrillation Plan: Currently in normal sinus rhythm, however patient very tachycardic at this moment. EKG obtained which showed sinus tachycardia (6) HTN (hypertension) ICD Code: I10 - Essential (primary) hypertension Plan: Blood pressure slightly elevated. The patient is on lisinopril 10 minutes p.o. daily. Increase lisinopril to 20 mg p.o. daily. BP is still severely elevated with a systolic blood pressure in the 170s. Agree with starting amlodipine 5 mg p.o. daily, continue lisinopril 20 mg p.o. daily. Continue to monitor vital signs. DVT prophylaxis: SCDs, currently on Plavix, Eliquis. Patient is deconditioning. PT to re evaluate patient 12/20/17 DILIA tube accidentally pulled. Discussed with Dr Javier IR, unable to place the Jtube in because patient is anticoagulated. Patient is however clinically stable at this time. Will monitor , plan for US gallbladder 12/21 . IR will decide of need for tube , note will need to hold anticoagulation for 3 days before placing j tube back. Will have to switch to heparin meanwhile. Problem Qualifiers (1) Acute respiratory failure: Qualified Codes: J96.00 - Acute respiratory failure, unspecified whether with hypoxia or hypercapnia (2) CAD (coronary artery disease): (3) Atrial fibrillation: Qualified Codes: I48.0 - Paroxysmal atrial fibrillation (4) HTN (hypertension): Qualified Codes: I10 - Essential (primary) hypertension Jessy Clark MD Dec 21, 2017 15:34
[2017-12-21 16:00] VITALS: BP 149/66; PULSE 54; RESP 18; TEMP 98; O2SAT 94
--- NOTE | 2017-12-21 16:02 | RADRPT ---
EXAM DATE/TIME: 12/21/2017 15:14 [facility] COMPARISON: No previous studies available for comparison. INDICATIONS : Cholecystitis. MEDICAL HISTORY : Hypercholesterolemia. Hypertension. Congestive heart failure. Anticoagulant therapy. Irregular heartb eat. Chronic back pain. Neuropathy. Bipolar disorder. SURGICAL HISTORY : Pacemaker. Coronary artery stent. CABG. Left shoulder surgery. ENCOUNTER: Initial ACUITY: 1 day PAIN SCORE: 2/10 LOCATION: Right upper quadrant MEASUREMENTS: LIVER: 15.1 cm length COMMON DUCT: 9 mm RIGHT KIDNEY: 10.2 x 5.7 x 5.1 cm FINDINGS: LIVER: Normal echotexture without focal lesion or ductal dilatation. COMMON DUCT: No intraluminal mass or stone visualized. Mildly prominent 9 mm. GALLBLADDER: Cholelithiasis. There is gallbladder wall thickening identified. No pericholecystic fluid. Wall thick ness up to 5 mm. Negative sonographic Bryan's sign. PANCREAS: The visualized portions are within normal limits. RIGHT KIDNEY: No evidence of hydronephrosis, stone, or mass. CONCLUSION: 1. Abnormal gallbladder with wall thickening and cholelithiasis. This can be seen with cholecystitis. 2. Mildly prominent common bile duct without obvious stone. Jefferson Reid MD on December 21, 2017 at 15:59 Board Certified Radiologist. This report was verified electronically.
[2017-12-21 20:00] VITALS: BP 156/69; PULSE 58; PULSE 62; RESP 20; TEMP 98; O2SAT 95
[2017-12-21] MEDS: ATORVASTATIN 40 MG TAB PO SCH (22:11)
[2017-12-21] MEDS: TAMSULOSIN HCL 0.4 MG CAP PO SCH (22:11)
[2017-12-22] VITALS (10 sets, daily range): BP systolic 130–166; BP diastolic 63–82; PULSE 51–71; RESP 18–20; TEMP 97.3–98.1; O2SAT 95–97
[2017-12-22] MEDS: ACETAMINOPHEN/HYDROcodone 325 MG/5 MG TAB PO PRN ×2 (00:20→13:18)
[2017-12-22] MEDS: PIPERACIL-TAZO 3.375 GM PREMIX 50 ML IV SCH ×4 (01:03→18:55)
[2017-12-22 06:08] LABS: AUTOMATED NEUTROPHIL # 12.7 TH/MM3 (1.8-7.7); BASOPHIL % 0.1 % (0.0-2.0); EOSINOPHIL % 0.1 % (0.0-4.0); HEMATOCRIT 28.9 % (39.0-51.0); HEMOGLOBIN 9.8 GM/DL (13.0-17.0); LYMPH % 11.2 % (9.0-44.0); LYMPHOCYTE # 1.7 TH/MM3 (1.0-4.8); MEAN CELL VOLUME 93.7 FL (80.0-100.0); MEAN CORPUSCULAR HEMOGLOBIN 31.9 PG (27.0-34.0); MEAN CORPUSCULAR HGB CONC 34.1 % (32.0-36.0); MEAN PLATELET VOLUME 7.8 FL (7.0-11.0); MONO % 4.6 % (0.0-8.0); MONOCYTE # 0.7 TH/MM3 (0-0.9); PLATELET COUNT 221 TH/MM3 (150-450); RED BLOOD COUNT 3.08 MIL/MM3 (4.50-5.90); RED CELL DISTRIBUTION WIDTH 14.9 % (11.6-17.2); WHITE BLOOD COUNT 15.2 TH/MM3 (4.0-11.0)
[2017-12-22 06:27] LABS: BICARBONATE 29.5 MEQ/L (21.0-32.0); CALCIUM 8.4 MG/DL (8.5-10.1); CREATININE 1.19 MG/DL (0.60-1.30)
[2017-12-22 07:15] LABS: BANDS 2 % (0-6); LYMPHOCYTES 11 % (9-44); METAMYELOCYTES 3 % (0-1); MONOCYTES 1 % (0-8); MYELOCYTES 2 % (0-0); NEUTROPHIL # MANUAL DIFF 13.4 TH/MM3 (1.8-7.7); POLYS (SEG NEUTROPHILS) 81 % (16-70)
[2017-12-22] MEDS: CHLORHEXIDINE 0.12% (ORAL KIT) 15 ML CUP MT SCH ×2 (08:00→20:00)
[2017-12-22] MEDS: CARVEDILOL 12.5 MG TAB PO SCH (08:19)
[2017-12-22] MEDS: DIVALPROEX DR 500 MG TABEC PO SCH ×3 (08:37→17:48)
[2017-12-22] MEDS: AMIODARONE 200 MG TAB PO SCH (08:37)
[2017-12-22] MEDS: FUROSEMIDE 40 MG TAB PO SCH (08:38)
[2017-12-22] MEDS: amLODIPine BESYLATE 5 MG TAB PO SCH (08:38)
[2017-12-22] MEDS: PRAVASTATIN SOD 40 MG TAB PO SCH (08:38)
[2017-12-22] MEDS: SPIRONOLACTONE 25 MG TAB PO SCH ×2 (08:38→17:48)
[2017-12-22] MEDS: LISINOPRIL 20 MG TAB PO SCH (08:38)
[2017-12-22] MEDS: DOCUSATE SODIUM 50 MG/SENNA 8.6 MG TAB PO SCH ×2 (08:38→21:00)
[2017-12-22] MEDS: predniSONE 20 MG TAB PO SCH ×2 (08:39→21:42)
[2017-12-22] MEDS: QUEtiapine FUMARATE 25 MG TAB PO SCH ×2 (08:39→12:23)
[2017-12-22] MEDS: CLOPIDOGREL 75 MG TAB PO SCH (08:39)
[2017-12-22] MEDS: ASPIRIN 81 MG CHEW TAB PO SCH (08:39)
[2017-12-22] MEDS: GABAPENTIN 300 MG CAP PO SCH ×3 (08:39→17:48)
[2017-12-22] MEDS: APIXABAN 5 MG TABLET PO SCH (08:39)
[2017-12-22] MEDS: SODIUM CHLORIDE 0.9% FLUSH 10 ML FLUSH IV FLUSH SCH ×2 (08:39→21:44)
--- NOTE | 2017-12-22 12:17 | HHI.PR ---
Subjective Remarks He is in bed. Says he still has abdominal pain radiating to his back. However he is able to eat. Says he is also able to ambulate to the bathroom but still has pain. No fever or chills. White blood cells are trending up. Denies nausea, vomiting, diarrhea or constipation. He is able to eat and keep down. Objective Vitals Vital Signs Date Time Temp Pulse Resp B/P (MAP) Pulse Ox O2 Delivery O2 Flow Rate FiO2 12/22/17 09:25 97 Nasal Cannula 3.00 12/22/17 08:07 54 12/22/17 08:07 Room Air 12/22/17 08:04 98.1 54 18 166/68 (100) 97 12/22/17 04:00 Room Air 12/22/17 04:00 54 12/22/17 04:00 98.1 51 18 155/73 (100) 97 12/22/17 00:00 97 Room Air 12/22/17 00:00 71 12/22/17 00:00 97.3 56 20 166/82 (110) 97 12/21/17 20:00 62 12/21/17 20:00 95 Room Air 12/21/17 20:00 98.0 58 20 156/69 (98) 95 12/21/17 16:00 98.0 54 18 149/66 (93) 94 I/O 12/21/17 12/21/17 12/21/17 12/22/17 12/22/17 12/22/17 07:00 15:00 23:00 07:00 15:00 23:00 Intake Total 50 ml 360 ml 290 ml Output Total 400 ml 350 ml 801 ml Balance -350 ml 10 ml -511 ml Intake Oral 360 ml 240 ml IV Total 50 ml 50 ml Output Urine Total 400 ml 350 ml 800 ml Stool Total 1 ml # Voids 2 2 Result Diagram: 12/22/17 0530 12/22/17 0530 Imaging Last Impressions Gall Bladder Ultrasound 12/21/17 1200 Signed Impressions: Service Date/Time: Thursday, December 21, 2017 15:14 - CONCLUSION: 1. Abnormal gallbladder with wall thickening and cholelithiasis. This can be seen with cholecystitis. 2. Mildly prominent common bile duct without obvious stone. Jefferson Reid MD Chest X-Ray 12/15/17 0000 Signed Impressions: Service Date/Time: Friday, December 15, 2017 10:02 - CONCLUSION: Interval extubation and continued improvement in aeration. Iain Ontiveros MD Percutaneous Cholangiogram 12/14/17 0000 Signed Impressions: Service Date/Time: Thursday, December 14, 2017 11:54 - CONCLUSION: Uncomplicated percutaneous cholecystostomy as above. Iain Ontiveros MD CT Angiography 12/13/17 0000 Signed Impressions: Service Date/Time: Wednesday, December 13, 2017 12:48 - CONCLUSION: 1. No evidence of pulmonary embolism 2. Bilateral increased interstitial markings suggestive of pulmonary edema. 3. Scattered bilateral pulmonary infiltrates Gene Ferraro MD Abdomen/Pelvis CT 12/12/17 0334 Signed Impressions: Service Date/Time: Tuesday, December 12, 2017 04:07 - CONCLUSION: 1. Cholelithiasis and with CT findings of concern for early or mild acute cholecystitis in the proper clinical setting. No duct stone or obstruction. 2. No other acute abnormalities are demonstrated. Ventral hernia containing transverse colon but without evidence of obstruction or strangulation. Aortofemoral bypass changes and appears patent. Iain Barnett MD Head CT 12/12/17 0000 Signed Impressions: Service Date/Time: Tuesday, December 12, 2017 18:42 - CONCLUSION: 1. Senescent changes with mild small vessel ischemic periventricular white matter demyelination. 2. Mild ventriculomegaly which may be slightly out of portion to the degree of atrophy. Clinical correlation for normal pressure hydrocephalus is recommended. Dino Coyne MD Objective Remarks GENERAL: Pleasant, in bed appears in nad. CARDIOVASCULAR: Regular rate and rhythm. RESPIRATORY: No accessory muscle use. Clear to auscultation. Breath sounds equal bilaterally. GASTROINTESTINAL: Abdomen soft, RUQ pain on palpation also right lateral abd pain on palpation, nondistended. Positive Bryan's sign. MUSCULOSKELETAL: Extremities without clubbing, cyanosis, or edema. No obvious deformities. NEUROLOGICAL: Awake and alert. No obvious cranial nerve deficits. Motor grossly within normal limits. Five out of 5 muscle strength in the arms and legs. Normal speech. PSYCHIATRIC: Appropriate mood and affect; insight and judgment normal. Procedures Status post cardiac catheterization. A/P Problem List: (1) Acute cholecystitis ICD Code: K81.0 - Acute cholecystitis Status: Acute (2) Acute respiratory failure ICD Code: J96.00 - Acute respiratory failure, unspecified whether with hypoxia or hypercapnia (3) Acute on chronic systolic (congestive) heart failure ICD Code: I50.23 - Acute on chronic systolic (congestive) heart failure (4) CAD (coronary artery disease) ICD Code: I25.10 - Atherosclerotic heart disease of [place] coronary artery without angina pectoris (5) Atrial fibrillation ICD Code: I48.91 - Unspecified atrial fibrillation (6) HTN (hypertension) ICD Code: I10 - Essential (primary) hypertension Assessment and Plan (1) Acute cholecystitis Plan: Patient evaluated by general surgery. CT abdomen and pelvis reviewed showed cholelithiasis concern for cholecystitis. Placed on clear liquid diet by general surgery, pain control provided with IV narcotics. Patient has history of CAD with cardiac stent placement on Plavix and atrial fibrillation on Eliquis, cardiology consulted for clearance for surgery. Cardiology evaluated patient, as per records Plavix continued. Eliquis hed. Patient underwent cholecystostomy drainage tube placement by IR. Broad-spectrum antibiotics as per ID. Dr. Martinez cleared the patient to be discharged with cholecystostomy tube follow-up in 3 weeks with him. However Dr. Martinez recommended cardiology consultation for further recommendations regarding treatment with anticoagulation and advise regarding of when it can be hold for surgery. Cardiology recommends restarting eliquis continue asa and plavix. 12/20/17 DILIA tube accidentally pulled. Discussed with Dr Javier IR, unable to place the Jtube in because patient is anticoagulated. Patient is however clinically stable at this time. Will monitor , plan for US gallbladder 12/21 , IR to decide if need for placement of tube back. Need to hold anticoagulation for 3 days before placing j tube back. Will have to switch to heparin meanwhile. 12/22/17. Discussed with Dr. Javier from IR. Imaging reviewed. Patient still symptomatic. Plan to place the DILIA tube back in on or Friday. Will place aspirin, Plavix and Eliquis on hold. Started on heparin drip. (2) Acute respiratory failure ICD Code: J96.00 - Acute respiratory failure, unspecified whether with hypoxia or hypercapnia Plan: Patient became short of breath and hypoxemic into the mid 80s initially, rapidly declining, agitated. The patient was administered 40 mg of IV Lasix and 125 mg IV Solu-Medrol. Patient placed on nonrebreather mask however patient very agitated refusing to use it. X-ray reviewed by me showed pulmonary congestion and possible infiltrate in the right lower lung field. EKG showed a paced rhythm. ABG showed a pH of 7.34, PCO2 48 and PO2 59. Rapid response was activated and the patient was transferred emergently to the intensive care unit. The patient was intubated emergently, and mechanically ventilated on 12/13, extubated 12/14 and room air. Patient with IV Solu-Medrol which has been tapered. DC Solu-Medrol and start the patient oral prednisone taper. (3) Acute on chronic systolic (congestive) heart failure ICD Code: I50.23 - Acute on chronic systolic (congestive) heart failure Plan: 2D echocardiogram performed on October 27, 2017 showed an ejection fraction of 25-30%. Chest x-ray shows pulmonary congestion bilaterally. Suspect pulmonary edema is possibly responsible for part of the acute respiratory decline. Continue Lasix 20 mg IV every 12 hours. (4) CAD (coronary artery disease) ICD Code: I25.10 - Atherosclerotic heart disease of [place] coronary artery without angina pectoris Plan: Radiology consulted. Cleared patient for surgical procedure. Patient had a catheterization in October [address] Hoff which showed patent LUI to LAD graft to occluded vein grafts which were medically managed. Cardiology reconsulted on 12/17/17. Dr. Livingston evaluated the patient. As per medical records obtained from [facility] Dr. Livingston states that the patient had a left heart catheterization on 03/07/18 which showed severe CAD with patent stents. Given the patient was complaining of chest pain and shortness of breath the Continue Plavix, lisinopril 10 mg, amiodarone 200 mg p.o. daily, pravastatin and Coreg. The patient status post cardiac catheterization with bare-metal stent to RCA, symptomatic today. Continue aspirin, Plavix, Lipitor. Follow-up cardiology recommendations. As per cardiology recommendations the patient may have surgery in 2 weeks if necessary. 6 weeks optimally. Follow-up with Dr. Livingston on 12/22/17. Resume Eliquis as per cardiology recommendations. Discussed with Dr. Javier from IR. Imaging reviewed. Patient still symptomatic. Plan to place the DILIA tube back in on or Tuesday 12/[address] aspirin, Plavix and Eliquis on hold. Started on heparin drip. (5) Atrial fibrillation ICD Code: I48.91 - Unspecified atrial fibrillation Plan: Currently in normal sinus rhythm, however patient very tachycardic at this moment. EKG obtained which showed sinus tachycardia (6) HTN (hypertension) ICD Code: I10 - Essential (primary) hypertension Plan: Blood pressure slightly elevated. The patient is on lisinopril 10 minutes p.o. daily. Increase lisinopril to 20 mg p.o. daily. BP is still severely elevated with a systolic blood pressure in the 170s. Agree with starting amlodipine 5 mg p.o. daily, continue lisinopril 20 mg p.o. daily. Continue to monitor vital signs. DVT prophylaxis: SCDs, currently on Plavix, Eliquis. Patient is deconditioning. PT to re evaluate patient 12/20/17 DILIA tube accidentally pulled. Discussed with Dr Javier IR, unable to place the Jtube in because patient is anticoagulated. Patient is however clinically stable at this time. Will monitor , plan for US gallbladder 12/[address] Javier from IR. Imaging reviewed. Patient still symptomatic. Plan to place the DILIA tube back in on or Tuesday 12/[address] aspirin, Plavix and Eliquis on hold. Started on heparin drip. Problem Qualifiers (1) Acute respiratory failure: Qualified Codes: J96.00 - Acute respiratory failure, unspecified whether with hypoxia or hypercapnia (2) CAD (coronary artery disease): (3) Atrial fibrillation: Qualified Codes: I48.0 - Paroxysmal atrial fibrillation (4) HTN (hypertension): Qualified Codes: I10 - Essential (primary) hypertension Jessy Clark MD Dec 22, 2017 12:17
[2017-12-22 13:52] LABS: HEMATOCRIT 31.3 % (39.0-51.0); HEMOGLOBIN 10.5 GM/DL (13.0-17.0); MEAN CELL VOLUME 95.7 FL (80.0-100.0); MEAN CORPUSCULAR HGB CONC 33.5 % (32.0-36.0); PLATELET COUNT 246 TH/MM3 (150-450); RED BLOOD COUNT 3.27 MIL/MM3 (4.50-5.90); RED CELL DISTRIBUTION WIDTH 14.8 % (11.6-17.2); WHITE BLOOD COUNT 17.9 TH/MM3 (4.0-11.0)
[2017-12-22 14:08] LABS: INTERNATIONAL NORMALIZED RATIO 1.1 RATIO; PROTHROMBIN TIME - PATIENT 10.8 SEC (9.8-11.6)
[2017-12-22] MEDS: HEPARIN-D5W 25,000 U/250 ML 250 ML IV PRN (15:32)
[2017-12-22] MEDS: traMADol HCL 50 MG TAB PO PRN ×2 (19:32→21:42)
--- NOTE | 2017-12-22 20:21 | PD.CARD.PN ---
Subjective Subjective Remarks assymptomatic Objective Medications Current Medications Medications (Trade) Dose Ordered Sig/Eliot Route Start Time Stop Time Status Last Admin (Tylenol) 650 mg Q4H PRN PO 12/12/17 06:00 (Zofran Inj) 4 mg Q6H PRN IVP 12/12/17 06:00 (Narcan Inj) 0.4 mg UNSCH PRN IV PUSH 12/12/17 06:00 (Lillian-Colace) 1 tab BID PO 12/12/17 09:00 12/22/17 08:38 (Milk Of Magnesia Liq) 30 ml Q12H PRN PO 12/12/17 06:00 (Senokot) 17.2 mg Q12H PRN PO 12/12/17 06:00 (Dulcolax Supp) 10 mg DAILY PRN RECTAL 12/12/17 06:00 (Lactulose Liq) 30 ml DAILY PRN PO 12/12/17 06:00 Piperacillin Sod/ Tazobactam Sod 50 ml @ 100 mls/hr Q6H IV 12/12/17 06:00 12/22/17 18:55 (Morphine Inj) 2 mg Q4H PRN IV 12/12/17 11:45 12/21/17 14:17 (Peridex 0.12% Liq) 15 ml BID@08,20 MT 12/13/17 20:00 12/17/17 08:00 (Cordarone) 200 mg DAILY PO 12/14/17 09:00 12/22/17 08:37 (Lipitor) 40 mg HS PO 12/13/17 21:00 12/21/17 22:11 (Coreg) 12.5 mg DAILY PO 12/14/17 09:00 12/20/17 09:08 (Depakote Dr) 500 mg TID PO 12/13/17 18:00 12/22/17 17:48 (Neurontin) 300 mg TID PO 12/13/17 18:00 12/22/17 17:48 (Aldactone) 25 mg BID@09,18 PO 12/13/17 18:00 12/22/17 17:48 (Brethine Inj) 1 mg UNSCH PRN SQ 12/14/17 10:45 (Apresoline Inj) 10 mg Q30M PRN IV PUSH 12/17/17 05:45 12/19/17 09:23 (Duoneb Neb) 1 ampule Q2HR NEB PRN NEB 12/17/17 14:15 12/17/17 17:02 (Flomax) 0.8 mg HS PO 12/17/17 21:00 12/21/17 22:11 (Pravachol) 40 mg DAILY PO 12/18/17 09:00 12/22/17 08:38 (SEROquel) 25 mg BID@09,12 PO 12/18/17 09:00 12/22/17 12:23 (Prinivil) 20 mg DAILY PO 12/19/17 09:00 12/22/17 08:38 (NS Flush) 2 ml UNSCH PRN IV FLUSH 12/18/17 18:15 (NS Flush) 2 ml BID IV FLUSH 12/18/17 21:00 12/22/17 08:39 (Aspirin Chew) 81 mg DAILY PO 12/19/17 09:00 Future Hold 12/22/17 08:39 (Plavix) 75 mg DAILY PO 12/19/17 09:00 Future Hold 12/22/17 08:39 (Eliquis) 5 mg BID PO 12/19/17 11:15 Future Hold 12/22/17 08:39 (Norvasc) 5 mg DAILY PO 12/20/17 09:00 12/22/17 08:38 (Catapres) 0.1 mg Q6H PRN PO 12/19/17 15:30 (Lasix) 40 mg DAILY PO 12/20/17 09:00 12/22/17 08:38 (Deltasone) 20 mg BID PO 12/19/17 21:00 12/22/17 08:39 Heparin Sodium/ Dextrose 250 ml @ 9 mls/hr TITRATE PRN IV 12/22/17 11:00 12/22/17 15:32 (Ultram) 50 mg Q6H PRN PO 12/22/17 16:00 (Ultracet 37.5-325 Mg) 1 tab Q4H PRN PO 12/22/17 16:00 Vital Signs / I&O Vital Signs Date Time Temp Pulse Resp B/P (MAP) Pulse Ox O2 Delivery O2 Flow Rate FiO2 12/22/17 16:04 97.4 61 18 130/63 (85) 95 12/22/17 16:00 58 12/22/17 12:04 97.5 57 19 159/71 (100) 97 12/22/17 12:01 59 12/22/17 09:25 97 Nasal Cannula 3.00 12/22/17 08:07 54 12/22/17 08:07 Room Air 12/22/17 08:04 98.1 54 18 166/68 (100) 97 12/22/17 04:00 Room Air 12/22/17 04:00 54 12/22/17 04:00 98.1 51 18 155/73 (100) 97 12/22/17 00:00 97 Room Air 12/22/17 00:00 71 12/22/17 00:00 97.3 56 20 166/82 (110) 97 I/O 12/21/17 12/21/17 12/21/17 12/22/17 12/22/17 12/22/17 07:00 15:00 23:00 07:00 15:00 23:00 Intake Total 50 ml 360 ml 290 ml 50 ml 720 ml Output Total 400 ml 350 ml 801 ml 400 ml Balance -350 ml 10 ml -511 ml 50 ml 320 ml Intake Oral 360 ml 240 ml 720 ml IV Total 50 ml 50 ml 50 ml Output Urine Total 400 ml 350 ml 800 ml 400 ml Stool Total 1 ml # Voids 2 2 # Bowel Movements 1 Physical Exam GENERAL: SKIN: Warm and dry. HEAD: Normocephalic. EYES: No scleral icterus. No injection or drainage. NECK: Supple, trachea midline. No JVD or lymphadenopathy. CARDIOVASCULAR: Regular rate and rhythm without murmurs, gallops, or rubs. RESPIRATORY: Breath sounds equal bilaterally. No accessory muscle use. GASTROINTESTINAL: Abdomen soft, non-tender, nondistended. MUSCULOSKELETAL: No cyanosis, or edema. BACK: Nontender without obvious deformity. No CVA tenderness. Laboratory Laboratory Tests Test 12/22/17 05:30 12/22/17 13:35 White Blood Count 15.2 TH/MM3 17.9 TH/MM3 Red Blood Count 3.08 MIL/MM3 3.27 MIL/MM3 Hemoglobin 9.8 GM/DL 10.5 GM/DL Hematocrit 28.9 % 31.3 % Mean Corpuscular Volume 93.7 FL 95.7 FL Mean Corpuscular Hemoglobin 31.9 PG 32.0 PG Mean Corpuscular Hemoglobin Concent 34.1 % 33.5 % Red Cell Distribution Width 14.9 % 14.8 % Platelet Count 221 TH/MM3 246 TH/MM3 Mean Platelet Volume 7.8 FL 8.0 FL Neutrophils (%) (Auto) 84.0 % Lymphocytes (%) (Auto) 11.2 % Monocytes (%) (Auto) 4.6 % Eosinophils (%) (Auto) 0.1 % Basophils (%) (Auto) 0.1 % Neutrophils # (Auto) 12.7 TH/MM3 Lymphocytes # (Auto) 1.7 TH/MM3 Monocytes # (Auto) 0.7 TH/MM3 Eosinophils # (Auto) 0.0 TH/MM3 Basophils # (Auto) 0.0 TH/MM3 CBC Comment AUTO DIFF Differential Total Cells Counted 100 Neutrophils % (Manual) 81 % Band Neutrophils % 2 % Lymphocytes % 11 % Monocytes % 1 % Neutrophils # (Manual) 13.4 TH/MM3 Metamyelocytes 3 % Myelocytes 2 % Differential Comment FINAL DIFF MANUAL Platelet Estimate NORMAL Platelet Morphology Comment NORMAL Blood Urea Nitrogen 45 MG/DL Creatinine 1.19 MG/DL Random Glucose 182 MG/DL Calcium Level 8.4 MG/DL Sodium Level 142 MEQ/L Potassium Level 4.5 MEQ/L Chloride Level 105 MEQ/L Carbon Dioxide Level 29.5 MEQ/L Anion Gap 8 MEQ/L Estimat Glomerular Filtration Rate 60 ML/MIN Prothrombin Time 10.8 SEC Prothromb Time International Ratio 1.1 RATIO Activated Partial Thromboplast Time 19.2 SEC Assessment and Plan Problem List: (1) CAD (coronary artery disease) ICD Codes: I25.10 - Atherosclerotic heart disease of [place] coronary artery without angina pectoris (2) HTN (hypertension) ICD Codes: I10 - Essential (primary) hypertension (3) Acute on chronic systolic (congestive) heart failure ICD Codes: I50.23 - Acute on chronic systolic (congestive) heart failure (4) Unstable angina ICD Codes: I20.0 - Unstable angina (5) unstabk (6) Hypoxia ICD Codes: R09.02 - Hypoxemia (7) CHF (congestive heart failure) ICD Codes: I50.9 - Heart failure, unspecified (8) Atrial fibrillation ICD Codes: I48.91 - Unspecified atrial fibrillation Assessment and Plan 1.) CAD - pod#4 bms rca - assymptomatic, continue aspirin, plavix, lipitor; can have nc surg 2 weeks if necessary, 6 weeks optimally, d/w Dr Martinez; f/u with me nikia after discharge, d/w patient 2.) Cardiomyopathy - euvolemic by rhc, continue lisinopril, coreg 3.) Afib - rate controlled, assymptomatic, eliquis held due to need to reposition gb drain tube, on iv heparin bridge 4.) HTN - add norvasc 5 mg qd Problem Qualifiers (1) CAD (coronary artery disease): (2) HTN (hypertension): Qualified Codes: I10 - Essential (primary) hypertension (3) Atrial fibrillation: Qualified Codes: I48.0 - Paroxysmal atrial fibrillation Alvarez Livingston MD Dec 22, 2017 20:21
[2017-12-22] MEDS: TAMSULOSIN HCL 0.4 MG CAP PO SCH (21:00)
[2017-12-22] MEDS: ATORVASTATIN 40 MG TAB PO SCH (21:41)
[2017-12-23] VITALS (9 sets, daily range): BP systolic 126–160; BP diastolic 58–72; PULSE 54–78; RESP 18–20; TEMP 97.3–97.9; O2SAT 94–98
[2017-12-23] MEDS: PIPERACIL-TAZO 3.375 GM PREMIX 50 ML IV SCH ×4 (00:58→17:58)
[2017-12-23] MEDS: traMADol HCL 50 MG TAB PO PRN ×3 (03:32→20:43)
[2017-12-23] MEDS: CHLORHEXIDINE 0.12% (ORAL KIT) 15 ML CUP MT SCH ×2 (07:34→20:00)
[2017-12-23] MEDS: predniSONE 20 MG TAB PO SCH ×2 (09:00→20:41)
--- NOTE | 2017-12-23 09:00 | HHI.PR ---
Subjective Remarks Still with significant pain right upper quadrant abdomen, suspicious says Tramadol helps better but he usually takes 2 pills of 50 mg 3 times a day. Patient denies any fever or chills. No nausea or vomiting overnight able to eat. Also complains of back pain. Objective Vitals Vital Signs Date Time Temp Pulse Resp B/P (MAP) Pulse Ox O2 Delivery O2 Flow Rate FiO2 12/23/17 04:00 67 12/23/17 03:29 97.7 55 20 157/72 (100) 97 12/23/17 00:00 54 12/23/17 00:00 97.8 60 160/72 (101) 98 12/22/17 20:38 21 12/22/17 20:00 Room Air 12/22/17 20:00 97.9 59 20 157/69 (98) 97 12/22/17 16:04 97.4 61 18 130/63 (85) 95 12/22/17 16:00 58 12/22/17 12:04 97.5 57 19 159/71 (100) 97 12/22/17 12:01 59 12/22/17 09:25 97 Nasal Cannula 3.00 I/O 12/22/17 12/22/17 12/22/17 12/23/17 12/23/17 12/23/17 07:00 15:00 23:00 07:00 15:00 23:00 Intake Total 290 ml 50 ml 770 ml 50 ml Output Total 801 ml 400 ml 400 ml Balance -511 ml 50 ml 370 ml -350 ml Intake Oral 240 ml 720 ml IV Total 50 ml 50 ml 50 ml 50 ml Output Urine Total 800 ml 400 ml 400 ml Stool Total 1 ml # Bowel Movements 1 Result Diagram: 12/22/17 1335 12/22/17 0530 Imaging Last Impressions Gall Bladder Ultrasound 12/21/17 1200 Signed Impressions: Service Date/Time: Thursday, December 21, 2017 15:14 - CONCLUSION: 1. Abnormal gallbladder with wall thickening and cholelithiasis. This can be seen with cholecystitis. 2. Mildly prominent common bile duct without obvious stone. Jefferson Reid MD Chest X-Ray 12/15/17 0000 Signed Impressions: Service Date/Time: Friday, December 15, 2017 10:02 - CONCLUSION: Interval extubation and continued improvement in aeration. Iain Ontiveros MD Percutaneous Cholangiogram 12/14/17 0000 Signed Impressions: Service Date/Time: Thursday, December 14, 2017 11:54 - CONCLUSION: Uncomplicated percutaneous cholecystostomy as above. Iain Ontiveros MD CT Angiography 12/13/17 0000 Signed Impressions: Service Date/Time: Wednesday, December 13, 2017 12:48 - CONCLUSION: 1. No evidence of pulmonary embolism 2. Bilateral increased interstitial markings suggestive of pulmonary edema. 3. Scattered bilateral pulmonary infiltrates Gene Ferraro MD Abdomen/Pelvis CT 12/12/17 0334 Signed Impressions: Service Date/Time: Tuesday, December 12, 2017 04:07 - CONCLUSION: 1. Cholelithiasis and with CT findings of concern for early or mild acute cholecystitis in the proper clinical setting. No duct stone or obstruction. 2. No other acute abnormalities are demonstrated. Ventral hernia containing transverse colon but without evidence of obstruction or strangulation. Aortofemoral bypass changes and appears patent. Iain Barnett MD Head CT 12/12/17 0000 Signed Impressions: Service Date/Time: Tuesday, December 12, 2017 18:42 - CONCLUSION: 1. Senescent changes with mild small vessel ischemic periventricular white matter demyelination. 2. Mild ventriculomegaly which may be slightly out of portion to the degree of atrophy. Clinical correlation for normal pressure hydrocephalus is recommended. Dino Coyne MD Objective Remarks GENERAL: Pleasant, in bed appears in nad. CARDIOVASCULAR: Regular rate and rhythm. RESPIRATORY: No accessory muscle use. Clear to auscultation. Breath sounds equal bilaterally. GASTROINTESTINAL: Abdomen soft, RUQ pain on palpation also right lateral abd pain on palpation, nondistended. Positive Bryan's sign. MUSCULOSKELETAL: Extremities without clubbing, cyanosis, or edema. No obvious deformities. NEUROLOGICAL: Awake and alert. No obvious cranial nerve deficits. Motor grossly within normal limits. Five out of 5 muscle strength in the arms and legs. Normal speech. PSYCHIATRIC: Appropriate mood and affect; insight and judgment normal. Procedures Status post cardiac catheterization. A/P Problem List: (1) Acute cholecystitis ICD Code: K81.0 - Acute cholecystitis Status: Acute (2) Acute respiratory failure ICD Code: J96.00 - Acute respiratory failure, unspecified whether with hypoxia or hypercapnia (3) Acute on chronic systolic (congestive) heart failure ICD Code: I50.23 - Acute on chronic systolic (congestive) heart failure (4) CAD (coronary artery disease) ICD Code: I25.10 - Atherosclerotic heart disease of [place] coronary artery without angina pectoris (5) Atrial fibrillation ICD Code: I48.91 - Unspecified atrial fibrillation (6) HTN (hypertension) ICD Code: I10 - Essential (primary) hypertension Assessment and Plan (1) Acute cholecystitis Plan: Patient evaluated by general surgery. CT abdomen and pelvis reviewed showed cholelithiasis concern for cholecystitis. Placed on clear liquid diet by general surgery, pain control provided with IV narcotics. Patient has history of CAD with cardiac stent placement on Plavix and atrial fibrillation on Eliquis, cardiology consulted for clearance for surgery. Cardiology evaluated patient, as per records Plavix continued. Eliquis hed. Patient underwent cholecystostomy drainage tube placement by IR. Broad-spectrum antibiotics as per ID. Dr. Martinez cleared the patient to be discharged with cholecystostomy tube follow-up in 3 weeks with him. However Dr. Martinez recommended cardiology consultation for further recommendations regarding treatment with anticoagulation and advise regarding of when it can be hold for surgery. Cardiology recommends restarting eliquis continue asa and plavix. 12/20/17 DILIA tube accidentally pulled. Discussed with Dr Javier IR, unable to place the Jtube in because patient is anticoagulated. Patient is however clinically stable at this time. Will monitor , plan for US gallbladder 12/21 , IR to decide if need for placement of tube back. Need to hold anticoagulation for 3 days before placing j tube back. Will have to switch to heparin meanwhile. 12/22/17. Discussed with Dr. Javier from IR. Imaging reviewed. Patient still symptomatic. Plan to place the DILIA tube to be placed on or Friday. HOLD aspirin, Plavix and Eliquis (12/22/17). Started on heparin drip. Started on tramadol po per pain scale. patient requesting tramadol instead of other narcotic . DC norco and started on tramadol, keep morphine for breakthrough pain (2) Acute respiratory failure ICD Code: J96.00 - Acute respiratory failure, unspecified whether with hypoxia or hypercapnia Plan: Patient became short of breath and hypoxemic into the mid 80s initially, rapidly declining, agitated. The patient was administered 40 mg of IV Lasix and 125 mg IV Solu-Medrol. Patient placed on nonrebreather mask however patient very agitated refusing to use it. X-ray reviewed by me showed pulmonary congestion and possible infiltrate in the right lower lung field. EKG showed a paced rhythm. ABG showed a pH of 7.34, PCO2 48 and PO2 59. Rapid response was activated and the patient was transferred emergently to the intensive care unit. The patient was intubated emergently, and mechanically ventilated on 12/13, extubated 12/14 and room air. Patient with IV Solu-Medrol which has been tapered. DC Solu-Medrol and start the patient oral prednisone taper. (3) Acute on chronic systolic (congestive) heart failure ICD Code: I50.23 - Acute on chronic systolic (congestive) heart failure Plan: 2D echocardiogram performed on October 27, 2017 showed an ejection fraction of 25-30%. Chest x-ray shows pulmonary congestion bilaterally. Suspect pulmonary edema is possibly responsible for part of the acute respiratory decline. Continue Lasix 20 mg IV every 12 hours. (4) CAD (coronary artery disease) ICD Code: I25.10 - Atherosclerotic heart disease of [place] coronary artery without angina pectoris Plan: Radiology consulted. Cleared patient for surgical procedure. Patient had a catheterization in October [address] Hoff which showed patent LUI to LAD graft to occluded vein grafts which were medically managed. Cardiology reconsulted on 12/17/17. Dr. Livingston evaluated the patient. As per medical records obtained from [facility] Dr. Livingston states that the patient had a left heart catheterization on 03/07/18 which showed severe CAD with patent stents. Given the patient was complaining of chest pain and shortness of breath the Continue Plavix, lisinopril 10 mg, amiodarone 200 mg p.o. daily, pravastatin and Coreg. The patient status post cardiac catheterization with bare-metal stent to RCA, symptomatic today. Continue aspirin, Plavix, Lipitor. Follow-up cardiology recommendations. As per cardiology recommendations the patient may have surgery in 2 weeks if necessary. 6 weeks optimally. Follow-up with Dr. Livingston on 12/22/17. Resume Eliquis as per cardiology recommendations. Discussed with Dr. Javier from IR. Imaging reviewed. Patient still symptomatic. Plan to place the DILIA tube back in on or Tuesday 12/[address] aspirin, Plavix and Eliquis on hold. Started on heparin drip meanwhile (5) Atrial fibrillation ICD Code: I48.91 - Unspecified atrial fibrillation Plan: Currently in normal sinus rhythm, however patient very tachycardic at this moment. EKG obtained which showed sinus tachycardia (6) HTN (hypertension) ICD Code: I10 - Essential (primary) hypertension Plan: Blood pressure slightly elevated. The patient is on lisinopril 10 minutes p.o. daily. Increase lisinopril to 20 mg p.o. daily. Continue amlodipine 5 mg p.o. daily, continue lisinopril 20 mg p.o. daily. Continue to monitor vital signs. DVT prophylaxis: SCDs, currently on Plavix, Eliquis. Patient is deconditioning. PT to re evaluate patient 12/20/17 DILIA tube accidentally pulled. Discussed with Dr Javier IR, unable to place the Jtube in because patient is anticoagulated. Patient is however clinically stable at this time. Will monitor , plan for US gallbladder 12/[address] Javier from IR. Imaging reviewed. Patient still symptomatic. Plan to place the DILIA tube back in on or Tuesday 12/26 per IR. Aspirin, Plavix and Eliquis on hold. Started on heparin drip. Problem Qualifiers (1) Acute respiratory failure: Qualified Codes: J96.00 - Acute respiratory failure, unspecified whether with hypoxia or hypercapnia (2) CAD (coronary artery disease): (3) Atrial fibrillation: Qualified Codes: I48.0 - Paroxysmal atrial fibrillation (4) HTN (hypertension): Qualified Codes: I10 - Essential (primary) hypertension Jessy Clark MD Dec 23, 2017 09:00
[2017-12-23] MEDS: PRAVASTATIN SOD 40 MG TAB PO SCH (09:17)
[2017-12-23] MEDS: LISINOPRIL 20 MG TAB PO SCH (09:17)
[2017-12-23] MEDS: SPIRONOLACTONE 25 MG TAB PO SCH ×2 (09:18→17:57)
[2017-12-23] MEDS: DOCUSATE SODIUM 50 MG/SENNA 8.6 MG TAB PO SCH ×2 (09:18→20:43)
[2017-12-23] MEDS: FUROSEMIDE 40 MG TAB PO SCH (09:18)
[2017-12-23] MEDS: SODIUM CHLORIDE 0.9% FLUSH 10 ML FLUSH IV FLUSH SCH ×2 (09:18→20:44)
[2017-12-23] MEDS: AMIODARONE 200 MG TAB PO SCH (09:18)
[2017-12-23] MEDS: CARVEDILOL 12.5 MG TAB PO SCH (09:18)
[2017-12-23] MEDS: DIVALPROEX DR 500 MG TABEC PO SCH ×3 (09:18→17:57)
[2017-12-23] MEDS: QUEtiapine FUMARATE 25 MG TAB PO SCH ×2 (09:18→11:45)
[2017-12-23] MEDS: amLODIPine BESYLATE 5 MG TAB PO SCH (09:18)
[2017-12-23] MEDS: GABAPENTIN 300 MG CAP PO SCH ×3 (09:18→17:57)
[2017-12-23] MEDS: HEPARIN-D5W 25,000 U/250 ML 250 ML IV PRN (14:37)
--- NOTE | 2017-12-23 14:51 | HHI.PR ---
cc: Sergio Martinez MD Subjective Subjective Notes Notified by Dr. Livingston that cholecystostomy tube fell out over the weekend Patient resting in bed Objective Vitals/I&O Vital Signs Date Time Temp Pulse Resp B/P (MAP) Pulse Ox O2 Delivery O2 Flow Rate FiO2 12/23/17 13:46 94 Nasal Cannula 2.00 12/23/17 12:00 67 12/23/17 12:00 97.3 18 126/58 (80) 12/22/17 20:38 21 Labs Laboratory Tests Test 12/23/17 00:13 12/23/17 10:30 12/23/17 13:54 Activated Partial Thromboplast Time 32.7 45.7 50.4 Date/Time Source Procedure Growth Status 12/12/17 14:00 Blood Peripheral Aerobic Blood Culture - Final NO GROWTH IN 5 DAYS Complete 12/12/17 14:00 Blood Peripheral Anaerobic Blood Culture - Final NO GROWTH IN 5 DAYS Complete 12/13/17 14:00 Sputum Endotracheal Gram Stain - Final Complete 12/13/17 14:00 Sputum Endotracheal Sputum Culture - Final NO GROWTH IN 48 HOURS. Complete 12/13/17 12:22 Urine Catheterized Urine Urine Culture - Final NO GROWTH IN 48 HOURS. Complete Radiology Last 48 hours Impressions Abdomen/Pelvis CT 12/12/17 0334 Signed Impressions: Service Date/Time: Tuesday, December 12, 2017 04:07 - CONCLUSION: 1. Cholelithiasis and with CT findings of concern for early or mild acute cholecystitis in the proper clinical setting. No duct stone or obstruction. 2. No other acute abnormalities are demonstrated. Ventral hernia containing transverse colon but without evidence of obstruction or strangulation. Aortofemoral bypass changes and appears patent. Iain Barnett MD Chest X-Ray 12/12/17 0141 Signed Impressions: Service Date/Time: Tuesday, December 12, 2017 02:06 - CONCLUSION: No evidence of acute cardiopulmonary disease. Resolved bibasilar consolidation.. Iain Barnett MD Cardiovascular: Regular Lungs: Clear Abdomen: Other (prior angela tube healed over; RUQ tenderness with palpation ) Extremities: No edema A/P Assessment and Plan 72 year old male with acute cholecystitis; recent stent placement on OAC -S/p IR placed angela tube ---fell out and attempted to replace but unsuccessful -Eliquis and Plavix on hold; on heparin drip to bridge and reattempt angela tube placement either or Friday -If unable to place--- this might be a good time to consider laparoscopic cholecystectomy if cleared by Cardiology -Will continue to follow Attending Note - Dr. Martinez As above; discussed with Dr. Livingston; surgery much less risky in approx 2 weeks ; ideally need 6 weeks from stent placement to minimize risk of acute stent occlusion when withholding anticoagulant drugs. Abdomen still mildly distended and tender RUQ and epigastric region. The exam, history, and the medical decision-making described in the above note were completed with the assistance of the mid-level provider. I reviewed and agree with the findings presented. I attest that I had a [id number] encounter with the patient on the same day, and personally performed and documented my assessment and findings in the medical record. Mag Means/First Víctor EMMANUEL Dec 23, 2017 14:51 Sergio Martinez MD Dec 24, 2017 13:33
--- NOTE | 2017-12-23 17:21 | PD.CARD.PN ---
Subjective Subjective Remarks assymptomatic Objective Medications Current Medications Medications (Trade) Dose Ordered Sig/Eliot Route Start Time Stop Time Status Last Admin (Tylenol) 650 mg Q4H PRN PO 12/12/17 06:00 (Zofran Inj) 4 mg Q6H PRN IVP 12/12/17 06:00 (Narcan Inj) 0.4 mg UNSCH PRN IV PUSH 12/12/17 06:00 (Lillian-Colace) 1 tab BID PO 12/12/17 09:00 12/23/17 09:18 (Milk Of Magnesia Liq) 30 ml Q12H PRN PO 12/12/17 06:00 (Senokot) 17.2 mg Q12H PRN PO 12/12/17 06:00 (Dulcolax Supp) 10 mg DAILY PRN RECTAL 12/12/17 06:00 (Lactulose Liq) 30 ml DAILY PRN PO 12/12/17 06:00 Piperacillin Sod/ Tazobactam Sod 50 ml @ 100 mls/hr Q6H IV 12/12/17 06:00 12/23/17 11:45 (Morphine Inj) 2 mg Q4H PRN IV 12/12/17 11:45 12/21/17 14:17 (Peridex 0.12% Liq) 15 ml BID@08,20 MT 12/13/17 20:00 12/17/17 08:00 (Cordarone) 200 mg DAILY PO 12/14/17 09:00 12/23/17 09:18 (Lipitor) 40 mg HS PO 12/13/17 21:00 12/22/17 21:41 (Coreg) 12.5 mg DAILY PO 12/14/17 09:00 12/23/17 09:18 (Depakote Dr) 500 mg TID PO 12/13/17 18:00 12/23/17 11:44 (Neurontin) 300 mg TID PO 12/13/17 18:00 12/23/17 11:45 (Aldactone) 25 mg BID@09,18 PO 12/13/17 18:00 12/23/17 09:18 (Brethine Inj) 1 mg UNSCH PRN SQ 12/14/17 10:45 (Apresoline Inj) 10 mg Q30M PRN IV PUSH 12/17/17 05:45 12/19/17 09:23 (Duoneb Neb) 1 ampule Q2HR NEB PRN NEB 12/17/17 14:15 12/17/17 17:02 (Flomax) 0.8 mg HS PO 12/17/17 21:00 12/21/17 22:11 (Pravachol) 40 mg DAILY PO 12/18/17 09:00 12/23/17 09:17 (SEROquel) 25 mg BID@09,12 PO 12/18/17 09:00 12/23/17 11:45 (Prinivil) 20 mg DAILY PO 12/19/17 09:00 12/23/17 09:17 (NS Flush) 2 ml UNSCH PRN IV FLUSH 12/18/17 18:15 (NS Flush) 2 ml BID IV FLUSH 12/18/17 21:00 12/23/17 09:18 (Aspirin Chew) 81 mg DAILY PO 12/19/17 09:00 Future Hold 12/22/17 08:39 (Plavix) 75 mg DAILY PO 12/19/17 09:00 Future Hold 12/22/17 08:39 (Eliquis) 5 mg BID PO 12/19/17 11:15 Future Hold 12/22/17 08:39 (Norvasc) 5 mg DAILY PO 12/20/17 09:00 12/23/17 09:18 (Catapres) 0.1 mg Q6H PRN PO 12/19/17 15:30 (Lasix) 40 mg DAILY PO 12/20/17 09:00 12/23/17 09:18 (Deltasone) 20 mg BID PO 12/19/17 21:00 12/23/17 09:00 Heparin Sodium/ Dextrose 250 ml @ 9 mls/hr TITRATE PRN IV 12/22/17 11:00 12/23/17 14:37 (Ultracet 37.5-325 Mg) 1 tab Q4H PRN PO 12/22/17 16:00 (Ultram) 100 mg Q8HR PRN PO 12/23/17 10:00 12/23/17 11:52 Vital Signs / I&O Vital Signs Date Time Temp Pulse Resp B/P (MAP) Pulse Ox O2 Delivery O2 Flow Rate FiO2 12/23/17 16:58 96 Nasal Cannula 2.00 12/23/17 16:00 97.7 54 20 141/64 (89) 96 12/23/17 13:46 94 Nasal Cannula 2.00 12/23/17 12:00 67 12/23/17 12:00 97.3 57 18 126/58 (80) 95 12/23/17 09:47 Room Air 12/23/17 08:00 78 12/23/17 08:00 97.7 60 20 126/58 (80) 97 12/23/17 04:00 67 12/23/17 03:29 97.7 55 20 157/72 (100) 97 12/23/17 00:00 54 12/23/17 00:00 97.8 60 160/72 (101) 98 12/22/17 20:38 21 12/22/17 20:00 Room Air 12/22/17 20:00 97.9 59 20 157/69 (98) 97 I/O 12/22/17 12/22/17 12/22/17 12/23/17 12/23/17 12/23/17 07:00 15:00 23:00 07:00 15:00 23:00 Intake Total 290 ml 50 ml 770 ml 50 ml 250 ml Output Total 801 ml 400 ml 400 ml Balance -511 ml 50 ml 370 ml -350 ml 250 ml Intake Oral 240 ml 720 ml IV Total 50 ml 50 ml 50 ml 50 ml 250 ml Output Urine Total 800 ml 400 ml 400 ml Stool Total 1 ml # Bowel Movements 1 Physical Exam GENERAL: SKIN: Warm and dry. HEAD: Normocephalic. EYES: No scleral icterus. No injection or drainage. NECK: Supple, trachea midline. No JVD or lymphadenopathy. CARDIOVASCULAR: Regular rate and rhythm without murmurs, gallops, or rubs. RESPIRATORY: Breath sounds equal bilaterally. No accessory muscle use. GASTROINTESTINAL: Abdomen soft, non-tender, nondistended. MUSCULOSKELETAL: No cyanosis, or edema. BACK: Nontender without obvious deformity. No CVA tenderness. Laboratory Laboratory Tests Test 12/23/17 00:13 12/23/17 10:30 12/23/17 13:54 Activated Partial Thromboplast Time 32.7 SEC 45.7 SEC 50.4 SEC Assessment and Plan Problem List: (1) CAD (coronary artery disease) ICD Codes: I25.10 - Atherosclerotic heart disease of [place] coronary artery without angina pectoris (2) HTN (hypertension) ICD Codes: I10 - Essential (primary) hypertension (3) Acute on chronic systolic (congestive) heart failure ICD Codes: I50.23 - Acute on chronic systolic (congestive) heart failure (4) Unstable angina ICD Codes: I20.0 - Unstable angina (5) unstabk (6) Hypoxia ICD Codes: R09.02 - Hypoxemia (7) CHF (congestive heart failure) ICD Codes: I50.9 - Heart failure, unspecified (8) Atrial fibrillation ICD Codes: I48.91 - Unspecified atrial fibrillation Assessment and Plan 1.) CAD - pod#5 bms rca - assymptomatic, continue aspirin, plavix, lipitor; can have nc surg 2 weeks if necessary, 6 weeks optimally, d/w Dr Martinez; f/u with fl nikia after discharge, d/w patient 2.) Cardiomyopathy - euvolemic by rhc, continue lisinopril, coreg 3.) Afib - rate controlled, assymptomatic, eliquis held due to need to reposition gb drain tube, on iv heparin bridge 4.) HTN - add norvasc 5 mg qd Problem Qualifiers (1) CAD (coronary artery disease): (2) HTN (hypertension): Qualified Codes: I10 - Essential (primary) hypertension (3) Atrial fibrillation: Qualified Codes: I48.0 - Paroxysmal atrial fibrillation Alvarez Livingston MD Dec 23, 2017 17:21
[2017-12-23] MEDS: ATORVASTATIN 40 MG TAB PO SCH (20:41)
[2017-12-23] MEDS: TAMSULOSIN HCL 0.4 MG CAP PO SCH (20:43)
[2017-12-24] VITALS (9 sets, daily range): BP systolic 121–183; BP diastolic 59–82; PULSE 48–69; RESP 18–20; TEMP 97.6–98.2; O2SAT 94–98
[2017-12-24] MEDS ORDERED: ZOLPIDEM TARTRATE 5 MG TAB PO ONE (00:45)
[2017-12-24] MEDS: PIPERACIL-TAZO 3.375 GM PREMIX 50 ML IV SCH ×4 (00:46→18:09)
[2017-12-24] MEDS ORDERED: LORazepam 2 MG/ML VIAL IV PUSH ONE (04:15)
[2017-12-24 05:28] LABS: BILIRUBIN, URINE NEG (NEG); BLOOD, URINE TRACE (NEG); GLUCOSE,URINE 70 mg/dL (NEG); KETONE, URINE 10 mg/dL (NEG); MUCUS URINE FEW /lpf (OCC); NITRITE,URINE NEG (NEG); SQUAMOUS EPITHELIAL CELL URINE <1 /hpf (0-5); URINE COLOR YELLOW (YELLW/STRAW); URINE LEUKOCYTE ESTERASE NEG (NEG)
[2017-12-24] MEDS: traMADol HCL 50 MG TAB PO PRN ×3 (06:05→21:25)
[2017-12-24] MEDS: CHLORHEXIDINE 0.12% (ORAL KIT) 15 ML CUP MT SCH ×2 (08:00→20:00)
[2017-12-24] MEDS: SODIUM CHLORIDE 0.9% FLUSH 10 ML FLUSH IV FLUSH SCH ×2 (09:00→21:00)
[2017-12-24] MEDS: LISINOPRIL 20 MG TAB PO SCH (09:31)
[2017-12-24] MEDS: AMIODARONE 200 MG TAB PO SCH (09:31)
[2017-12-24] MEDS: amLODIPine BESYLATE 5 MG TAB PO SCH (09:32)
[2017-12-24] MEDS: QUEtiapine FUMARATE 25 MG TAB PO SCH ×2 (09:32→13:23)
[2017-12-24] MEDS: CARVEDILOL 12.5 MG TAB PO SCH (09:32)
[2017-12-24] MEDS: SPIRONOLACTONE 25 MG TAB PO SCH ×2 (09:33→18:09)
[2017-12-24] MEDS: FUROSEMIDE 40 MG TAB PO SCH (09:33)
[2017-12-24] MEDS: GABAPENTIN 300 MG CAP PO SCH ×3 (09:33→18:09)
[2017-12-24] MEDS: PRAVASTATIN SOD 40 MG TAB PO SCH (09:34)
[2017-12-24] MEDS: DIVALPROEX DR 500 MG TABEC PO SCH ×3 (09:34→18:09)
[2017-12-24] MEDS: DOCUSATE SODIUM 50 MG/SENNA 8.6 MG TAB PO SCH ×2 (09:34→21:00)
[2017-12-24] MEDS: predniSONE 20 MG TAB PO SCH ×2 (09:34→21:25)
--- NOTE | 2017-12-24 10:50 | HHI.PR ---
Subjective Remarks Noted more agitated per nurse and with alerted mental status in the morning and required restraints. Patient received one dose of Ambien last night and also lorazepam and he was noted more agitated thereafter. Patient is improving, not on restraints now. Normal speech no focal deficit. Still with pain better controlled by meds. No n/v/d/c. Also BP elevated Objective Vitals Vital Signs Date Time Temp Pulse Resp B/P (MAP) Pulse Ox O2 Delivery O2 Flow Rate FiO2 12/24/17 10:20 Room Air 12/24/17 08:00 97.8 54 20 183/81 (115) 94 12/24/17 04:00 97.8 67 20 162/73 (102) 94 12/24/17 00:55 97.8 60 20 129/82 (98) 97 12/24/17 00:00 69 12/23/17 20:00 Room Air 12/23/17 20:00 97.9 61 20 149/62 (91) 95 12/23/17 20:00 56 12/23/17 16:58 96 Nasal Cannula 2.00 12/23/17 16:00 55 12/23/17 16:00 97.7 54 20 141/64 (89) 96 12/23/17 13:46 94 Nasal Cannula 2.00 12/23/17 12:00 67 12/23/17 12:00 97.3 57 18 126/58 (80) 95 I/O 12/23/17 12/23/17 12/23/17 12/24/17 12/24/17 12/24/17 07:00 15:00 23:00 07:00 15:00 23:00 Intake Total 50 ml 250 ml 720 ml 480 ml Output Total 400 ml 350 ml 600 ml Balance -350 ml 250 ml 370 ml -120 ml Intake Oral 720 ml 480 ml IV Total 50 ml 250 ml Output Urine Total 400 ml 350 ml 600 ml # Voids 2 # Bowel Movements 0 2 Result Diagram: 12/22/17 1335 12/22/17 0530 Imaging Last Impressions Head CT 12/24/17 0000 Signed Impressions: Service Date/Time: Sunday, December 24, 2017 11:32 - CONCLUSION: 1. Cortical atrophy. No acute intracranial abnormality identified. Stable compared to previous dated 12/12/17. Sandeep Allison MD Gall Bladder Ultrasound 12/21/17 1200 Signed Impressions: Service Date/Time: Thursday, December 21, 2017 15:14 - CONCLUSION: 1. Abnormal gallbladder with wall thickening and cholelithiasis. This can be seen with cholecystitis. 2. Mildly prominent common bile duct without obvious stone. Jefferson Reid MD Chest X-Ray 12/15/17 0000 Signed Impressions: Service Date/Time: Friday, December 15, 2017 10:02 - CONCLUSION: Interval extubation and continued improvement in aeration. Iain Ontiveros MD Percutaneous Cholangiogram 12/14/17 0000 Signed Impressions: Service Date/Time: Thursday, December 14, 2017 11:54 - CONCLUSION: Uncomplicated percutaneous cholecystostomy as above. Iain Ontiveros MD CT Angiography 12/13/17 0000 Signed Impressions: Service Date/Time: Wednesday, December 13, 2017 12:48 - CONCLUSION: 1. No evidence of pulmonary embolism 2. Bilateral increased interstitial markings suggestive of pulmonary edema. 3. Scattered bilateral pulmonary infiltrates Gene Ferraro MD Abdomen/Pelvis CT 12/12/17 0334 Signed Impressions: Service Date/Time: Tuesday, December 12, 2017 04:07 - CONCLUSION: 1. Cholelithiasis and with CT findings of concern for early or mild acute cholecystitis in the proper clinical setting. No duct stone or obstruction. 2. No other acute abnormalities are demonstrated. Ventral hernia containing transverse colon but without evidence of obstruction or strangulation. Aortofemoral bypass changes and appears patent. Iain Barnett MD Objective Remarks GENERAL: Pleasant, in bed appears in nad. CARDIOVASCULAR: Regular rate and rhythm. RESPIRATORY: No accessory muscle use. Clear to auscultation. Breath sounds equal bilaterally. GASTROINTESTINAL: Abdomen soft, RUQ pain on palpation also right lateral abd pain on palpation, nondistended. Positive Bryan's sign. MUSCULOSKELETAL: Extremities without clubbing, cyanosis, or edema. No obvious deformities. NEUROLOGICAL: Awake and alert. No obvious cranial nerve deficits. Motor grossly within normal limits. Five out of 5 muscle strength in the arms and legs. Normal speech. PSYCHIATRIC: Appropriate mood and affect; insight and judgment normal. Procedures Status post cardiac catheterization. A/P Problem List: (1) Acute cholecystitis ICD Code: K81.0 - Acute cholecystitis Status: Acute (2) Acute respiratory failure ICD Code: J96.00 - Acute respiratory failure, unspecified whether with hypoxia or hypercapnia (3) Acute on chronic systolic (congestive) heart failure ICD Code: I50.23 - Acute on chronic systolic (congestive) heart failure (4) CAD (coronary artery disease) ICD Code: I25.10 - Atherosclerotic heart disease of [place] coronary artery without angina pectoris (5) Atrial fibrillation ICD Code: I48.91 - Unspecified atrial fibrillation (6) HTN (hypertension) ICD Code: I10 - Essential (primary) hypertension Assessment and Plan (1) Acute cholecystitis Plan: Patient evaluated by general surgery. CT abdomen and pelvis reviewed showed cholelithiasis concern for cholecystitis. Placed on clear liquid diet by general surgery, pain control provided with IV narcotics. Patient has history of CAD with cardiac stent placement on Plavix and atrial fibrillation on Eliquis, cardiology consulted for clearance for surgery. Cardiology evaluated patient, as per records Plavix continued. Eliquis hed. Patient underwent cholecystostomy drainage tube placement by IR. Broad-spectrum antibiotics as per ID. Dr. Martinez cleared the patient to be discharged with cholecystostomy tube follow-up in 3 weeks with him. However Dr. Martinez recommended cardiology consultation for further recommendations regarding treatment with anticoagulation and advise regarding of when it can be hold for surgery. Cardiology recommends restarting eliquis continue asa and plavix. 12/20/17 DILIA tube accidentally pulled. Discussed with Dr Javier IR, unable to place the Jtube in because patient is anticoagulated. Patient is however clinically stable at this time. Will monitor , plan for US gallbladder 12/21 , IR to decide if need for placement of tube back. Need to hold anticoagulation for 3 days before placing j tube back. Will have to switch to heparin meanwhile. 12/22/17. Discussed with Dr. Javier from IR. Imaging reviewed. Patient still symptomatic. Plan to place the DILIA tube to be placed on or Friday. HOLD aspirin, Plavix and Eliquis (12/22/17). Started on heparin drip. Started on tramadol po per pain scale. patient requesting tramadol instead of other narcotic . DC norco and started on tramadol, keep morphine for breakthrough pain (2) Acute respiratory failure ICD Code: J96.00 - Acute respiratory failure, unspecified whether with hypoxia or hypercapnia Plan: Patient became short of breath and hypoxemic into the mid 80s initially, rapidly declining, agitated. The patient was administered 40 mg of IV Lasix and 125 mg IV Solu-Medrol. Patient placed on nonrebreather mask however patient very agitated refusing to use it. X-ray reviewed by me showed pulmonary congestion and possible infiltrate in the right lower lung field. EKG showed a paced rhythm. ABG showed a pH of 7.34, PCO2 48 and PO2 59. Rapid response was activated and the patient was transferred emergently to the intensive care unit. The patient was intubated emergently, and mechanically ventilated on 12/13, extubated 12/14 and room air. Patient with IV Solu-Medrol which has been tapered. DC Solu-Medrol and start the patient oral prednisone taper. (3) Acute on chronic systolic (congestive) heart failure ICD Code: I50.23 - Acute on chronic systolic (congestive) heart failure Plan: 2D echocardiogram performed on October 27, 2017 showed an ejection fraction of 25-30%. Chest x-ray shows pulmonary congestion bilaterally. Suspect pulmonary edema is possibly responsible for part of the acute respiratory decline. Continue Lasix 20 mg IV every 12 hours. (4) CAD (coronary artery disease) ICD Code: I25.10 - Atherosclerotic heart disease of [place] coronary artery without angina pectoris Plan: Radiology consulted. Cleared patient for surgical procedure. Patient had a catheterization in October [address] Hoff which showed patent LUI to LAD graft to occluded vein grafts which were medically managed. Cardiology reconsulted on 12/17/17. Dr. Livingston evaluated the patient. As per medical records obtained from [facility] Dr. Livingston states that the patient had a left heart catheterization on 03/07/18 which showed severe CAD with patent stents. Given the patient was complaining of chest pain and shortness of breath the Continue Plavix, lisinopril 10 mg, amiodarone 200 mg p.o. daily, pravastatin and Coreg. The patient status post cardiac catheterization with bare-metal stent to RCA, symptomatic today. Continue aspirin, Plavix, Lipitor. Follow-up cardiology recommendations. As per cardiology recommendations the patient may have surgery in 2 weeks if necessary. 6 weeks optimally. Follow-up with Dr. Livingston on 12/22/17. Resume Eliquis as per cardiology recommendations. Discussed with Dr. Javier from IR. Imaging reviewed. Patient still symptomatic. Plan to place the DILIA tube back in on or Tuesday 12/[address] aspirin, Plavix and Eliquis on hold. Started on heparin drip meanwhile (5) Atrial fibrillation ICD Code: I48.91 - Unspecified atrial fibrillation Plan: Currently in normal sinus rhythm, however patient very tachycardic at this moment. EKG obtained which showed sinus tachycardia (6) HTN (hypertension) ICD Code: I10 - Essential (primary) hypertension Plan: Blood pressure slightly elevated. The patient is on lisinopril 10 minutes p.o. daily. Increase lisinopril to 20 mg p.o. daily. Continue amlodipine 5 mg p.o. daily, continue lisinopril 20 mg p.o. daily. Continue to monitor vital signs. Add vasotec IV prn and hydralazine po prn for elevated BP> 160/85 DVT prophylaxis: SCDs, currently on Plavix, Eliquis. Patient is deconditioning. PT to re evaluate patient 12/20/17 DILIA tube accidentally pulled. Discussed with Dr Javier IR, unable to place the Jtube in because patient is anticoagulated. Patient is however clinically stable at this time. Will monitor , plan for US gallbladder 12/[address] Javier from IR. Imaging reviewed. Patient still symptomatic. Plan to place the DILIA tube back in on 12/25 per IR. Aspirin , Plavix and Eliquis on hold. Started on heparin drip. Discussed with Lilia from IR. Stop heparin drip in the morning 12/25 12/24 Noted agitated /altered mental status. Also BP into a higher side add prn meds. CT head ordered and no acute findings. Patient is better no focal deficits. Also consulted psych for eval. Problem Qualifiers (1) Acute respiratory failure: Qualified Codes: J96.00 - Acute respiratory failure, unspecified whether with hypoxia or hypercapnia (2) CAD (coronary artery disease): (3) Atrial fibrillation: Qualified Codes: I48.0 - Paroxysmal atrial fibrillation (4) HTN (hypertension): Qualified Codes: I10 - Essential (primary) hypertension Jessy Clark MD Dec 24, 2017 10:50
[2017-12-24] MEDS ORDERED: ENALAPRILAT 2.5 MG/2 ML VIAL IV PUSH PRN (11:00)
[2017-12-24 11:46] LABS: AUTOMATED NEUTROPHIL # 19.2 TH/MM3 (1.8-7.7); BASOPHIL # 0.1 TH/MM3 (0-0.2); BASOPHIL % 0.3 % (0.0-2.0); EOSINOPHIL # 0.5 TH/MM3 (0-0.4); EOSINOPHIL % 2.1 % (0.0-4.0); HEMATOCRIT 31.9 % (39.0-51.0); HEMOGLOBIN 10.5 GM/DL (13.0-17.0); LYMPHOCYTE # 2.9 TH/MM3 (1.0-4.8); MEAN CELL VOLUME 94.3 FL (80.0-100.0); MEAN CORPUSCULAR HEMOGLOBIN 30.9 PG (27.0-34.0); MEAN CORPUSCULAR HGB CONC 32.8 % (32.0-36.0); MEAN PLATELET VOLUME 8.4 FL (7.0-11.0); MONO % 5.9 % (0.0-8.0); MONOCYTE # 1.4 TH/MM3 (0-0.9); NEUT % 79.7 % (16.0-70.0); PLATELET COUNT 274 TH/MM3 (150-450); RED BLOOD COUNT 3.38 MIL/MM3 (4.50-5.90); RED CELL DISTRIBUTION WIDTH 15.2 % (11.6-17.2)
--- NOTE | 2017-12-24 11:53 | RADRPT ---
EXAM DATE/TIME: 12/24/2017 11:32 [facility] COMPARISON: CT PULMONARY ANGIOGRAM, December 13, 2017, 12:48. CT BRAIN W/O CONTRAST, December 12, 2017, 18:42. INDICATIONS : Altered mental sttus RADIATION DOSE: 56.35 CTDIvol (mGy) MEDICAL HISTORY : Cardiovascular disease. Hypertension. SURGICAL HISTORY : Pacemaker. ENCOUNTER: Initial ACUITY: 1 day PAIN SCALE: 0/10 LOCATION: cranial TECHNIQUE: Multiple contiguous axial images were obtained of the head. Using automated exposure control and adj ustment of the mA and/or kV according to patient size, radiation dose was kept as low as reasonably a chievable to obtain optimal diagnostic quality images. DICOM format image data is available electro nically for review and comparison. FINDINGS: CEREBRUM: The ventricles are mildly dilated. There is mild cortical atrophy. There is no acute intracranial hem orrhage. No mass lesion is identified. No significant extra-axial fluid collections are identified. N o findings to indicate acute cortical infarction are evident by CT. POSTERIOR FOSSA: The cerebellum and brainstem are intact. The 4th ventricle is midline. The cerebellopontine angle i s unremarkable. EXTRACRANIAL: The visualized portion of the orbits is intact. SKULL: The calvaria is intact. No evidence of skull fracture. CONCLUSION: 1. Cortical atrophy. No acute intracranial abnormality identified. Stable compared to previous dated 12/12/17. Sandeep Allison MD on December 24, 2017 at 11:50 Board Certified Radiologist. This report was verified electronically.
[2017-12-24] MEDS ORDERED: hydrALAZINE HCL 10 MG TAB PO PRN (12:00)
--- NOTE | 2017-12-24 14:21 | PD.CARD.PN ---
Subjective Subjective Remarks asleep in nad Objective Medications Current Medications Medications (Trade) Dose Ordered Sig/Eliot Route Start Time Stop Time Status Last Admin (Tylenol) 650 mg Q4H PRN PO 12/12/17 06:00 (Zofran Inj) 4 mg Q6H PRN IVP 12/12/17 06:00 (Narcan Inj) 0.4 mg UNSCH PRN IV PUSH 12/12/17 06:00 (Lillian-Colace) 1 tab BID PO 12/12/17 09:00 12/24/17 09:34 (Milk Of Magnesia Liq) 30 ml Q12H PRN PO 12/12/17 06:00 (Senokot) 17.2 mg Q12H PRN PO 12/12/17 06:00 (Dulcolax Supp) 10 mg DAILY PRN RECTAL 12/12/17 06:00 (Lactulose Liq) 30 ml DAILY PRN PO 12/12/17 06:00 Piperacillin Sod/ Tazobactam Sod 50 ml @ 100 mls/hr Q6H IV 12/12/17 06:00 12/24/17 13:24 (Morphine Inj) 2 mg Q4H PRN IV 12/12/17 11:45 12/21/17 14:17 (Peridex 0.12% Liq) 15 ml BID@08,20 MT 12/13/17 20:00 12/17/17 08:00 (Cordarone) 200 mg DAILY PO 12/14/17 09:00 12/24/17 09:31 (Lipitor) 40 mg HS PO 12/13/17 21:00 12/23/17 20:41 (Coreg) 12.5 mg DAILY PO 12/14/17 09:00 12/24/17 09:32 (Depakote Dr) 500 mg TID PO 12/13/17 18:00 12/24/17 13:23 (Neurontin) 300 mg TID PO 12/13/17 18:00 12/24/17 13:23 (Aldactone) 25 mg BID@09,18 PO 12/13/17 18:00 12/24/17 09:33 (Brethine Inj) 1 mg UNSCH PRN SQ 12/14/17 10:45 (Apresoline Inj) 10 mg Q30M PRN IV PUSH 12/17/17 05:45 12/19/17 09:23 (Duoneb Neb) 1 ampule Q2HR NEB PRN NEB 12/17/17 14:15 12/17/17 17:02 (Flomax) 0.8 mg HS PO 12/17/17 21:00 12/21/17 22:11 (Pravachol) 40 mg DAILY PO 12/18/17 09:00 12/24/17 09:34 (SEROquel) 25 mg BID@09,12 PO 12/18/17 09:00 12/24/17 13:23 (Prinivil) 20 mg DAILY PO 12/19/17 09:00 12/24/17 09:31 (NS Flush) 2 ml UNSCH PRN IV FLUSH 12/18/17 18:15 (NS Flush) 2 ml BID IV FLUSH 12/18/17 21:00 12/24/17 09:00 (Aspirin Chew) 81 mg DAILY PO 12/19/17 09:00 Future Hold 12/22/17 08:39 (Plavix) 75 mg DAILY PO 12/19/17 09:00 Future Hold 12/22/17 08:39 (Eliquis) 5 mg BID PO 12/19/17 11:15 Future Hold 12/22/17 08:39 (Norvasc) 5 mg DAILY PO 12/20/17 09:00 12/24/17 09:32 (Catapres) 0.1 mg Q6H PRN PO 12/19/17 15:30 (Lasix) 40 mg DAILY PO 12/20/17 09:00 12/24/17 09:33 (Deltasone) 20 mg BID PO 12/19/17 21:00 12/24/17 09:34 Heparin Sodium/ Dextrose 250 ml @ 9 mls/hr TITRATE PRN IV 12/22/17 11:00 12/23/17 14:37 (Ultracet 37.5-325 Mg) 1 tab Q4H PRN PO 12/22/17 16:00 (Ultram) 100 mg Q8HR PRN PO 12/23/17 10:00 12/24/17 09:30 (Vasotec Inj) 2.5 mg Q6H PRN IV PUSH 12/24/17 11:00 (Apresoline) 10 mg Q6HR PRN PO 12/24/17 12:00 Vital Signs / I&O Vital Signs Date Time Temp Pulse Resp B/P (MAP) Pulse Ox O2 Delivery O2 Flow Rate FiO2 12/24/17 12:00 97.8 55 20 169/76 (107) 95 12/24/17 10:20 Room Air 12/24/17 08:00 97.8 54 20 183/81 (115) 94 12/24/17 04:00 97.8 67 20 162/73 (102) 94 12/24/17 00:55 97.8 60 20 129/82 (98) 97 12/24/17 00:00 69 12/23/17 20:00 Room Air 12/23/17 20:00 97.9 61 20 149/62 (91) 95 12/23/17 20:00 56 12/23/17 16:58 96 Nasal Cannula 2.00 12/23/17 16:00 55 12/23/17 16:00 97.7 54 20 141/64 (89) 96 I/O 12/23/17 12/23/17 12/23/17 12/24/17 12/24/17 12/24/17 07:00 15:00 23:00 07:00 15:00 23:00 Intake Total 50 ml 250 ml 720 ml 480 ml Output Total 400 ml 350 ml 600 ml Balance -350 ml 250 ml 370 ml -120 ml Intake Oral 720 ml 480 ml IV Total 50 ml 250 ml Output Urine Total 400 ml 350 ml 600 ml # Voids 2 # Bowel Movements 0 2 Physical Exam GENERAL: SKIN: Warm and dry. HEAD: Normocephalic. EYES: No scleral icterus. No injection or drainage. NECK: Supple, trachea midline. No JVD or lymphadenopathy. CARDIOVASCULAR: Regular rate and rhythm without murmurs, gallops, or rubs. RESPIRATORY: Breath sounds equal bilaterally. No accessory muscle use. GASTROINTESTINAL: Abdomen soft, non-tender, nondistended. MUSCULOSKELETAL: No cyanosis, or edema. BACK: Nontender without obvious deformity. No CVA tenderness. Laboratory Laboratory Tests Test 12/24/17 04:45 12/24/17 08:25 12/24/17 11:11 Urine Color YELLOW Urine Turbidity CLEAR Urine pH 6.0 Urine Specific [place] 1.024 Urine Protein TRACE mg/dL Urine Glucose (UA) 70 mg/dL Urine Ketones 10 mg/dL Urine Occult Blood TRACE Urine Nitrite NEG Urine Bilirubin NEG Urine Urobilinogen LESS THAN 2.0 MG/DL Urine Leukocyte Esterase NEG Urine RBC 1 /hpf Urine WBC 1 /hpf Urine Squamous Epithelial Cells <1 /hpf Urine Mucus FEW /lpf Microscopic Urinalysis Comment CATH-CULT NOT IND Activated Partial Thromboplast Time 40.4 SEC White Blood Count 24.0 TH/MM3 Red Blood Count 3.38 MIL/MM3 Hemoglobin 10.5 GM/DL Hematocrit 31.9 % Mean Corpuscular Volume 94.3 FL Mean Corpuscular Hemoglobin 30.9 PG Mean Corpuscular Hemoglobin Concent 32.8 % Red Cell Distribution Width 15.2 % Platelet Count 274 TH/MM3 Mean Platelet Volume 8.4 FL Neutrophils (%) (Auto) 79.7 % Lymphocytes (%) (Auto) 12.0 % Monocytes (%) (Auto) 5.9 % Eosinophils (%) (Auto) 2.1 % Basophils (%) (Auto) 0.3 % Neutrophils # (Auto) 19.2 TH/MM3 Lymphocytes # (Auto) 2.9 TH/MM3 Monocytes # (Auto) 1.4 TH/MM3 Eosinophils # (Auto) 0.5 TH/MM3 Basophils # (Auto) 0.1 TH/MM3 CBC Comment AUTO DIFF Differential Comment AUTO DIFF CONFIRMED Imaging Last [address] 12/24/17 0000 Signed Impressions: Service Date/Time: Sunday, December 24, 2017 11:32 - CONCLUSION: 1. Cortical atrophy. No acute intracranial abnormality identified. Stable compared to previous dated 12/12/17. Sandeep Allison MD Assessment and Plan Problem List: (1) CAD (coronary artery disease) ICD Codes: I25.10 - Atherosclerotic heart disease of [place] coronary artery without angina pectoris (2) HTN (hypertension) ICD Codes: I10 - Essential (primary) hypertension (3) Acute on chronic systolic (congestive) heart failure ICD Codes: I50.23 - Acute on chronic systolic (congestive) heart failure (4) Unstable angina ICD Codes: I20.0 - Unstable angina (5) unstabk (6) Hypoxia ICD Codes: R09.02 - Hypoxemia (7) CHF (congestive heart failure) ICD Codes: I50.9 - Heart failure, unspecified (8) Atrial fibrillation ICD Codes: I48.91 - Unspecified atrial fibrillation Assessment and Plan 1.) CAD - pod#6 bms rca - assymptomatic, continue aspirin, plavix, lipitor; can have nc surg 2 weeks if necessary, 6 weeks optimally, d/w Dr Martinez; f/u with wi nikia after discharge, d/w patient 2.) Cardiomyopathy - euvolemic by rhc, continue lisinopril, coreg 3.) Afib - rate controlled, assymptomatic, eliquis held due to need to reposition gb drain tube, on iv heparin bridge 4.) HTN - add norvasc 5 mg qd 5.) moderate risk for noncardiac surgery, needs at least 2 weeks of aspirin and plavix, preferabally 4 weeks and optimally 6 weeks; d/w Dr Martinez Problem Qualifiers (1) CAD (coronary artery disease): (2) HTN (hypertension): Qualified Codes: I10 - Essential (primary) hypertension (3) Atrial fibrillation: Qualified Codes: I48.0 - Paroxysmal atrial fibrillation Alvarez Livingston MD Dec 24, 2017 14:21
--- NOTE | 2017-12-24 16:25 | HHI.PR ---
cc: Sergio Martinez MD Subjective Subjective Notes Resting in bed Still with abdominal pain Objective Vitals/I&O Vital Signs Date Time Temp Pulse Resp B/P (MAP) Pulse Ox O2 Delivery O2 Flow Rate FiO2 12/24/17 15:28 95 Nasal Cannula 2.00 12/24/17 12:00 97.8 55 20 169/76 (107) 12/22/17 20:38 21 Labs Laboratory Tests Test 12/24/17 04:45 12/24/17 08:25 12/24/17 11:11 Urine Color YELLOW Urine Turbidity CLEAR Urine pH 6.0 Urine Specific [place] 1.024 Urine Protein TRACE Urine Glucose (UA) 70 Urine Ketones 10 Urine Occult Blood TRACE Urine Nitrite NEG Urine Bilirubin NEG Urine Urobilinogen LESS THAN 2.0 Urine Leukocyte Esterase NEG Urine RBC 1 Urine WBC 1 Urine Squamous Epithelial Cells <1 Urine Mucus FEW Microscopic Urinalysis Comment CATH-CULT NOT IND Activated Partial Thromboplast Time 40.4 White Blood Count 24.0 Red Blood Count 3.38 Hemoglobin 10.5 Hematocrit 31.9 Mean Corpuscular Volume 94.3 Mean Corpuscular Hemoglobin 30.9 Mean Corpuscular Hemoglobin Concent 32.8 Red Cell Distribution Width 15.2 Platelet Count 274 Mean Platelet Volume 8.4 Neutrophils (%) (Auto) 79.7 Lymphocytes (%) (Auto) 12.0 Monocytes (%) (Auto) 5.9 Eosinophils (%) (Auto) 2.1 Basophils (%) (Auto) 0.3 Neutrophils # (Auto) 19.2 Lymphocytes # (Auto) 2.9 Monocytes # (Auto) 1.4 Eosinophils # (Auto) 0.5 Basophils # (Auto) 0.1 CBC Comment AUTO DIFF Differential Comment AUTO DIFF CONFIRMED Date/Time Source Procedure Growth Status 12/12/17 14:00 Blood Peripheral Aerobic Blood Culture - Final NO GROWTH IN 5 DAYS Complete 12/12/17 14:00 Blood Peripheral Anaerobic Blood Culture - Final NO GROWTH IN 5 DAYS Complete 12/13/17 14:00 Sputum Endotracheal Gram Stain - Final Complete 12/13/17 14:00 Sputum Endotracheal Sputum Culture - Final NO GROWTH IN 48 HOURS. Complete 12/13/17 12:22 Urine Catheterized Urine Urine Culture - Final NO GROWTH IN 48 HOURS. Complete Radiology Last 48 hours Impressions Abdomen/Pelvis CT 12/12/17 0334 Signed Impressions: Service Date/Time: Tuesday, December 12, 2017 04:07 - CONCLUSION: 1. Cholelithiasis and with CT findings of concern for early or mild acute cholecystitis in the proper clinical setting. No duct stone or obstruction. 2. No other acute abnormalities are demonstrated. Ventral hernia containing transverse colon but without evidence of obstruction or strangulation. Aortofemoral bypass changes and appears patent. Iain Barnett MD Chest X-Ray 12/12/17 0141 Signed Impressions: Service Date/Time: Tuesday, December 12, 2017 02:06 - CONCLUSION: No evidence of acute cardiopulmonary disease. Resolved bibasilar consolidation.. Iain Barnett MD Cardiovascular: Regular Lungs: Clear Abdomen: Other (RUQ tenderness with palpation ) Extremities: No edema A/P Assessment and Plan 72 year old male with acute cholecystitis; recent stent placement on OAC -S/p IR placed angela tube ---fell out and attempted to replace but unsuccessful -Eliquis and Plavix on hold; on heparin drip to bridge and reattempt angela tube placement either -If unable to place--- this might be a good time to consider laparoscopic cholecystectomy if cleared by Cardiology -Continue antibiotics -Will continue to follow Attending Note - Dr. Martinez Plan is to attempt to replace angela tube again tomorrow; surgery timing not optimal if it needs to be done now. The exam, history, and the medical decision-making described in the above note were completed with the assistance of the mid-level provider. I reviewed and agree with the findings presented. I attest that I had a [id number] encounter with the patient on the same day, and personally performed and documented my assessment and findings in the medical record. Mag Means/Looper Fixer LIEN Dec 24, 2017 16:25 Sergio Martinez MD Dec 25, 2017 18:08
[2017-12-24] MEDS: TAMSULOSIN HCL 0.4 MG CAP PO SCH (21:00)
[2017-12-24] MEDS: HEPARIN-D5W 25,000 U/250 ML 250 ML IV PRN (21:18)
[2017-12-24] MEDS: ATORVASTATIN 40 MG TAB PO SCH (21:25)
[2017-12-25] VITALS (12 sets, daily range): BP systolic 115–174; BP diastolic 53–77; PULSE 45–90; RESP 18–22; TEMP 97–98.1; O2SAT 92–99
[2017-12-25] MEDS: PIPERACIL-TAZO 3.375 GM PREMIX 50 ML IV SCH ×4 (00:43→17:59)
[2017-12-25] MEDS: CHLORHEXIDINE 0.12% (ORAL KIT) 15 ML CUP MT SCH ×2 (08:00→20:00)
[2017-12-25] MEDS: SODIUM CHLORIDE 0.9% FLUSH 10 ML FLUSH IV FLUSH SCH ×2 (08:30→20:38)
[2017-12-25] MEDS: DIVALPROEX DR 500 MG TABEC PO SCH ×3 (08:31→18:06)
[2017-12-25] MEDS: GABAPENTIN 300 MG CAP PO SCH ×3 (08:31→18:00)
[2017-12-25] MEDS: AMIODARONE 200 MG TAB PO SCH (08:31)
[2017-12-25] MEDS: CARVEDILOL 12.5 MG TAB PO SCH (08:31)
[2017-12-25] MEDS: SPIRONOLACTONE 25 MG TAB PO SCH ×2 (08:32→18:00)
[2017-12-25] MEDS: FUROSEMIDE 40 MG TAB PO SCH (08:32)
[2017-12-25] MEDS: amLODIPine BESYLATE 5 MG TAB PO SCH (08:32)
[2017-12-25] MEDS: LISINOPRIL 20 MG TAB PO SCH (08:32)
[2017-12-25] MEDS: QUEtiapine FUMARATE 25 MG TAB PO SCH ×2 (08:32→11:55)
[2017-12-25] MEDS: predniSONE 20 MG TAB PO SCH ×2 (08:33→20:40)
[2017-12-25] MEDS: DOCUSATE SODIUM 50 MG/SENNA 8.6 MG TAB PO SCH ×2 (08:33→20:39)
[2017-12-25] MEDS: PRAVASTATIN SOD 40 MG TAB PO SCH (08:33)
[2017-12-25] MEDS: traMADol HCL 50 MG TAB PO PRN (08:34)
--- NOTE | 2017-12-25 09:48 | RADRPT ---
EXAM DATE/TIME: 12/25/2017 09:06 [facility] COMPARISON: US ABDOMEN - GALLBLADDER, December 21, 2017, 15:14. INDICATIONS : Right upper quadrant pain. MEDICAL HISTORY : Hypercholesterol. HTN. CHF. Bipolar. Neuropathy. SURGICAL HISTORY : Pacemaker. Coronary stent. CABG. Left shoulder surgery. ENCOUNTER: Subsequent ACUITY: 4-6 days PAIN SCORE: 6/10 LOCATION: Right upper quadrant MEASUREMENTS: LIVER: 13.6 cm length COMMON DUCT: 11 mm RIGHT KIDNEY: 10.4 x 5.9 x 6.4 cm FINDINGS: LIVER: Normal echotexture without focal lesion or ductal dilatation. COMMON DUCT: No intraluminal mass or stone visualized. The common bile duct is dilated at 11 mm GALLBLADDER: The gallbladder wall is thickened. There is minimal pericholecystic fluid. PANCREAS: The visualized portions are within normal limits. RIGHT KIDNEY: No evidence of hydronephrosis, stone, or mass. CONCLUSION: 1. Distended gallbladder with a thickened wall and minimal pericholecystic fluid. 2. Dilated common bile duct. Sandeep Allison MD on December 25, 2017 at 9:45 Board Certified Radiologist. This report was verified electronically.
--- NOTE | 2017-12-25 12:20 | HHI.PR ---
Subjective Remarks Pt seen around 11am Pt complains of 6.5-7/10 pain. currently still on restraints. Psychiatrist had just seen him prior to my arrival. No CP/SOB/N/V Discussed w IR, pt to go down for procedure around noon Objective Vitals Vital Signs Date Time Temp Pulse Resp B/P (MAP) Pulse Ox O2 Delivery O2 Flow Rate FiO2 12/25/17 09:00 92 Nasal Cannula 2.00 12/25/17 09:00 46 12/25/17 08:00 90 12/25/17 08:00 97.8 54 22 147/67 (93) 92 12/25/17 05:00 154/74 (100) 12/25/17 04:00 48 12/25/17 04:00 Nasal Cannula 2.00 12/25/17 04:00 97.0 50 18 174/77 (109) 97 12/25/17 00:00 Nasal Cannula 2.00 12/25/17 00:00 48 12/25/17 00:00 97.9 49 18 134/69 (90) 96 12/24/17 20:00 Nasal Cannula 2.00 12/24/17 20:00 48 12/24/17 19:55 97.6 50 18 121/59 (79) 98 12/24/17 16:00 98.2 53 20 164/74 (104) 97 12/24/17 16:00 50 12/24/17 15:28 95 Nasal Cannula 2.00 I/O 12/24/17 12/24/17 12/24/17 12/25/17 12/25/17 12/25/17 07:00 15:00 23:00 07:00 15:00 23:00 Intake Total 480 ml 960 ml Output Total 600 ml 1000 ml Balance -120 ml 960 ml -1000 ml Intake Oral 480 ml 960 ml Output Urine Total 600 ml 1000 ml # Voids 2 3 2 # Bowel Movements 2 1 Result Diagram: 12/24/17 1111 12/22/17 0530 Imaging Last Impressions Gall Bladder Ultrasound 12/25/17 0000 Signed Impressions: Service Date/Time: December 09:06 - CONCLUSION: 1. Distended gallbladder with a thickened wall and minimal pericholecystic fluid. 2. Dilated common bile duct. Sandeep Allison MD Head CT 12/24/17 0000 Signed Impressions: Service Date/Time: Sunday, December 24, 2017 11:32 - CONCLUSION: 1. Cortical atrophy. No acute intracranial abnormality identified. Stable compared to previous dated 12/12/17. Sandeep Allison MD Chest X-Ray 12/15/17 0000 Signed Impressions: Service Date/Time: Friday, December 15, 2017 10:02 - CONCLUSION: Interval extubation and continued improvement in aeration. Iain Ontiveros MD Percutaneous Cholangiogram 12/14/17 0000 Signed Impressions: Service Date/Time: Thursday, December 14, 2017 11:54 - CONCLUSION: Uncomplicated percutaneous cholecystostomy as above. Iain Ontiveros MD CT Angiography 12/13/17 0000 Signed Impressions: Service Date/Time: Wednesday, December 13, 2017 12:48 - CONCLUSION: 1. No evidence of pulmonary embolism 2. Bilateral increased interstitial markings suggestive of pulmonary edema. 3. Scattered bilateral pulmonary infiltrates Gene Ferraro MD Abdomen/Pelvis CT 12/12/17 0334 Signed Impressions: Service Date/Time: Tuesday, December 12, 2017 04:07 - CONCLUSION: 1. Cholelithiasis and with CT findings of concern for early or mild acute cholecystitis in the proper clinical setting. No duct stone or obstruction. 2. No other acute abnormalities are demonstrated. Ventral hernia containing transverse colon but without evidence of obstruction or strangulation. Aortofemoral bypass changes and appears patent. Iain Barnett MD Objective Remarks GENERAL: Pleasant, in bed appears in nad. CARDIOVASCULAR: Regular rate and rhythm. RESPIRATORY: No accessory muscle use. Clear to auscultation. Breath sounds equal bilaterally. GASTROINTESTINAL: Abdomen soft, RUQ pain on palpation also right lateral abd pain on palpation, nondistended. MUSCULOSKELETAL: Extremities without edema. No obvious deformities. NEUROLOGICAL: Awake and alert. Normal speech. Procedures Status post cardiac catheterization. A/P Problem List: (1) Acute cholecystitis ICD Code: K81.0 - Acute cholecystitis Status: Acute (2) Acute respiratory failure ICD Code: J96.00 - Acute respiratory failure, unspecified whether with hypoxia or hypercapnia (3) Acute on chronic systolic (congestive) heart failure ICD Code: I50.23 - Acute on chronic systolic (congestive) heart failure (4) CAD (coronary artery disease) ICD Code: I25.10 - Atherosclerotic heart disease of [place] coronary artery without angina pectoris (5) Atrial fibrillation ICD Code: I48.91 - Unspecified atrial fibrillation (6) HTN (hypertension) ICD Code: I10 - Essential (primary) hypertension Assessment and Plan (1) Acute cholecystitis Patient evaluated by general surgery. CT abdomen and pelvis reviewed showed cholelithiasis concern for cholecystitis. Patient has history of CAD with cardiac stent placement on Plavix and atrial fibrillation on Eliquis, cardiology consulted for clearance for surgery. Patient underwent cholecystostomy drainage tube placement by IR. Broad-spectrum antibiotics as per ID. Dr. Martinez cleared the patient to be discharged with cholecystostomy tube follow -up in 3 weeks with him. However Dr. Martinez recommended cardiology consultation for further recommendations regarding treatment with anticoagulation and advise regarding of when it can be hold for surgery. Cardiology recommends restarting eliquis continue asa and plavix. 12/20/17 DILIA tube accidentally pulled. Discussed with Dr Javier IR, unable to place the Jtube in because patient is anticoagulated. Patient is however clinically stable at this time. Will monitor , plan for US gallbladder 12/21 , IR to decide if need for placement of tube back. Need to hold anticoagulation for 3 days before placing j tube back. Will have to switch to heparin meanwhile. 12/22/17. Discussed with Dr. Javier from IR. Imaging reviewed. Patient still symptomatic. Plan to place the IDLIA tube today at noon. Because of this ASA and Plavix and Eliquis were held (12/22/17). pt was Started on heparin drip. I did confirm w IR that pt will be having procedure around noon today. Once procedure completed, will need to resume plavis and ASA per cards recs. on tramadol, patient requesting tramadol instead of other narcotic . morphine for breakthrough pain (2) Acute respiratory failure This has resolved. s/p 40 mg of IV Lasix and 125 mg IV Solu-Medrol. X-ray reviewed by me showed pulmonary congestion and possible infiltrate in the right lower lung field. EKG showed a paced rhythm. ABG showed a pH of 7.34, PCO2 48 and PO2 59. Rapid response was activated and the patient was transferred emergently to the intensive care unit. The patient was intubated emergently, and mechanically ventilated on 12/13, extubated 12/14 and room air. Currently pt on a prednisone taper (3) Acute on chronic systolic (congestive) heart failure 2D echocardiogram performed on October 27, 2017 showed an ejection fraction of 25 -30%. Chest x-ray shows pulmonary congestion bilaterally. Continue Lasix 20 mg IV every 12 hours. (4) CAD (coronary artery disease) Radiology consulted. Patient had a catheterization in October [address] Hoff which showed patent LUI to LAD graft to occluded vein grafts which were medically managed. Cardiology reconsulted on 12/17/17. Dr. Livingston evaluated the patient. As per medical records obtained from [facility] Dr. Livingston states that the patient had a left heart catheterization on 03/07/18 which showed severe CAD with patent stents. Given the patient was complaining of chest pain and shortness of breath plan is to Continue Plavix, lisinopril 10 mg, amiodarone 200 mg p.o. daily, pravastatin and Coreg. The patient status post cardiac catheterization with bare-metal stent to RCA, symptomatic today. Continue aspirin, Plavix, Lipitor. Follow-up cardiology recommendations. As per cardiology recommendations the patient may have surgery in 2 weeks if necessary. 6 weeks optimally. Follow-up with Dr. Livingston on 12/22/17. Resume Eliquis as per cardiology recommendations once procedure w IR completed. (5) Atrial fibrillation Currently in normal sinus rhythm, (6) HTN (hypertension) Blood pressure slightly elevated. The patient is on lisinopril 10 minutes p.o. daily. Increase lisinopril to 20 mg p.o. daily. Continue amlodipine 5 mg p.o. daily, continue lisinopril 20 mg p.o. daily. Continue to monitor vital signs. vasotec IV prn and hydralazine po prn for elevated BP> 160/85 DVT prophylaxis: SCDs, currently on Plavix, Eliquis. Patient is deconditioning. PT to re evaluate patient Discharge Planning 12/20/17 DILIA tube accidentally pulled. IR plans to place the DILIA tube back in today. Aspirin, Plavix and Eliquis on hold. on heparin drip but this was held this morning for procedure. on 12/24 Noted agitated /altered mental status. Also BP into a higher side add prn meds. CT head ordered and no acute findings. Patient is better no focal deficits. psych was consulted for eval. Per nursing staff, pt at time becomes very agitated and verbally abusive. Currently pt is calm. Awaiting recs from psych Problem Qualifiers (1) Acute respiratory failure: Qualified Codes: J96.00 - Acute respiratory failure, unspecified whether with hypoxia or hypercapnia (2) CAD (coronary artery disease): (3) Atrial fibrillation: Qualified Codes: I48.0 - Paroxysmal atrial fibrillation (4) HTN (hypertension): Qualified Codes: I10 - Essential (primary) hypertension Ally Peters MD Dec 25, 2017 12:20
[2017-12-25] MEDS ORDERED: HALOPERIDOL LACTATE 5 MG/ML AMP IM PRN (13:30)
--- NOTE | 2017-12-25 13:30 | PD.PSY.CON ---
Provisional Diagnosis Admission Date Dec 12, 2017 at 18:14 [place] I. Delirium due to underlying medical conditions, bipolar disorder? [place] II. Deferred History of Present Illness Service Psychiatry Consult Requested By Medical team Reason for Consult Agitation and aggressive behavior Primary Care Physician Unknown HPI The patient is a 72-year-old man, domiciled with a girlfriend Tamera , single, unemployed, with psychiatric history of bipolar disorder, no previous psychiatric hospitalizations, no previous suicidal attempts, patient is in Cymbalta 60 mg, Depakote 500 mg twice a day, patient does not clarify who is the prescriber of these medications, medical history of CAD with stent placement on Plavix, CHF, atrial fibrillation on Eliquis, hyperlipidemia and HTN who presented to the ED with complaints of right upper quadrant abdominal pain. Patient was admitted with Acute cholecystitis. Patient evaluated by general surgery. CT abdomen and pelvis reviewed showed cholelithiasis concern for cholecystitis. Patient has history of CAD with cardiac stent placement on Plavix and atrial fibrillation on Eliquis, cardiology consulted for clearance for surgery. Patient underwent cholecystostomy drainage tube placement by IR. Consulted to psychiatry due to agitation, confusion, hostile behavior with nurses. On psychiatric evaluation today the patient is calm, cooperative, with periods of confusion. However, the patient is able to participate in the psychiatric assessment, he was restrained in 2 points previously, but he was recently loosen , he reports okay mood, he says that before he was upset because the nurses have not been very nice with him. However, he feels better now, he denies anhedonia, hopelessness, denies helplessness, denies suicidal or homicidal ideation, he denies visual and auditory hallucinations. The patient is logical , coherent and relevant. Oriented 3. 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 He denies the use of illegal drugs and alcohol. As per nursing charge the patient has been episodically agitated, disrespectful and verbally hostile with nurses, in a few occasions has to be restrained due to disorganized behavior. Review of Systems Constitutional: DENIES: Diaphoretic episodes, Fatigue, Fever, Weight gain, Weight loss, Chills, Dizziness, Change in appetite, Night Sweats Eyes: DENIES: Blurred vision, Diplopia, Eye inflammation, Eye pain, Vision loss , Photosensitivity, Double Vision Ears, nose, mouth, throat: DENIES: Tinnitus, Hearing loss, Vertigo, Nasal discharge, Oral lesions, Throat pain, Hoarseness, Ear Pain, Running Nose, Epistaxis, Sinus Pain, Toothache, Odynophagia Respiratory: DENIES: Apneas, Cough, Snoring, Wheezing, Hemoptysis, Sputum production, Shortness of breath Cardiovascular: DENIES: Chest pain, Palpitations, Syncope, Dyspnea on Exertion , PND, Lower Extremity Edema, Orthopnea, Claudication Gastrointestinal: DENIES: Abdominal pain, Black stools, Bloody stools, Constipation, Diarrhea, Nausea, Vomiting, Difficulty Swallowing, Anorexia Genitourinary: DENIES: Sexual dysfunction, Urinary frequency, Urinary incontinence, Urgency, Hematuria, Dysuria, Nocturia, Penile Discharge, Testicular Pain, Testicular Swelling Musculoskeletal: DENIES: Joint pain, Muscle aches, Stiffness, Joint Swelling, Back pain, Neck pain Integumentary: DENIES: Abnormal pigmentation, Nail changes, Pruritus, Rash Hematologic/lymphatic: DENIES: Bruising, Lymphadenopathy Immunologic/allergic: DENIES: Eczema, Urticaria Neurologic: DENIES: Abnormal gait, Headache, Localized weakness, Paresthesias, Seizures, Speech Problems, Tremor, Poor Balance Psychiatric: DENIES: Anxiety, Confusion, Mood changes, Depression, Hallucinations, Agitation, Suicidal Ideation, Homicidal Ideation, Delusions Past Family Social History Coded Allergies: No Known Allergies (Verified Allergy, Unknown, 12/12/17) Active Scripts Hydrocodone-Acetaminophen ([place]) 5 Mg-325 Mg Tab, 1 TAB PO Q6H Y for PAIN, #30 TAB 0 Refills Prov:Jessy Clark MD 12/20/17 Prednisone (Prednisone) 20 Mg Tab, 20 MG PO BID for Shortness of Breath, #6 TAB Prov:Jessy Clark MD 12/20/17 Furosemide (Furosemide) 40 Mg Tab, 40 MG PO DAILY for Blood Pressure Management , #30 TAB Prov:Jessy Clark MD 12/20/17 Quetiapine (Seroquel) 25 Mg Tab, 25 MG PO BID@09,12 for anxiety, #60 TAB Prov:Jessy Clark MD 12/20/17 Aspirin (Tgt Aspirin) 81 Mg Chw, 81 MG PO DAILY for Blood Clot Prevention, #30 EA Prov:Jessy Clark MD 12/20/17 Spironolactone (Aldactone) 25 Mg Tab, 25 MG PO BID@ for Blood Pressure Management, #30 TAB Prov:Jessy Clark MD 12/20/17 Lisinopril (Lisinopril) 20 Mg Tab, 20 MG PO DAILY for Blood Pressure Management , #30 TAB Prov:Jessy Clark MD 12/20/17 Potassium Chloride ER (Potassium Chloride ER) 20 Meq Tab, 20 MEQ PO DAILY for Electrolyte Replacement, #30 TAB 0 Refills Prov:Cecil Monaco MD 12/03/17 Furosemide (Furosemide) 20 Mg Tab, 20 MG PO BID for heart failure, #60 TAB 0 Refills Prov:Cecil Monaco MD 12/03/17 Apixaban (Eliquis) 5 Mg Tab, 5 MG PO BID for Blood Clot Prevention, #60 TAB 0 Refills Prov:Cecil Monaco MD 12/03/17 Lisinopril (Lisinopril) 10 Mg Tab, 10 MG PO DAILY for heart failure, #30 TAB 0 Refills Prov:Cecil Monaco MD 12/03/17 Carvedilol (Coreg) 12.5 Mg Tab, 12.5 MG PO DAILY for Regulate Heart Beat, #60 TAB Prov:Cecil Monaco MD 12/03/17 Atorvastatin (Atorvastatin) 40 Mg Tab, 40 MG PO HS for heart disease, #30 TAB Prov:Cecil Monaco MD 12/03/17 Reported Medications Multiple Vitamin (Multiple Vitamin) 1 Tab, 1 TAB PO DAILY for Nutritional Supplement, TAB 0 Refills 12/12/17 Simvastatin (Simvastatin) 20 Mg Tab, 20 MG PO DAILY for Cholesterol Management, #30 TAB 0 Refills 12/12/[address] (Divalproex DR) 500 Mg Tabdr, 500 MG PO TID for Control Seizures, #60 TAB 0 Refills 12/01/[address] (Duloxetine DR) 60 Mg Capdr, 60 MG PO DAILY, #30 CAP 0 Refills 12/01/17 Tamsulosin (Tamsulosin) 0.4 Mg Cap, 0.8 MG PO HS for Manage Prostate Problems, # 60 CAP 0 Refills 12/01/17 Clopidogrel (Plavix) 75 Mg Tab, 75 MG PO DAILY for Blood Clot Prevention, #30 TAB 0 Refills 12/01/17 Amiodarone (Amiodarone) 200 Mg Tab, 200 MG PO DAILY for Regulate Heart Beat, # 30 TAB 0 Refills 12/01/17 Gabapentin (Gabapentin) 300 Mg Cap, 300 MG PO TID, #90 CAP 0 Refills 10/26/17 Tramadol (Tramadol) 50 Mg Tab, 50 MG PO Q6H Y for PAIN, TAB 0 Refills 10/26/17 Current Medications Medications (Trade) Dose Ordered Sig/[place]li[place] Route Start Time Stop Time Status Last Admin (Tylenol) 650 mg Q4H PRN PO 12/12/17 06:00 (Zofran Inj) 4 mg Q6H PRN IVP 12/12/17 06:00 (Narcan Inj) 0.4 mg UNSCH PRN IV PUSH 12/12/17 06:00 (Lillian-Colace) 1 tab BID PO 12/12/17 09:00 12/25/17 08:33 (Milk Of Magnesia Liq) 30 ml Q12H PRN PO 12/12/17 06:00 (Senokot) 17.2 mg Q12H PRN PO 12/12/17 06:00 (Dulcolax Supp) 10 mg DAILY PRN RECTAL 12/12/17 06:00 (Lactulose Liq) 30 ml DAILY PRN PO 12/12/17 06:00 Piperacillin Sod/ Tazobactam Sod 50 ml @ 100 mls/hr Q6H IV 12/12/17 06:00 12/25/17 11:54 (Morphine Inj) 2 mg Q4H PRN IV 12/12/17 11:45 12/21/17 14:17 (Peridex 0.12% Liq) 15 ml BID@08,20 MT 12/13/17 20:00 12/17/17 08:00 (Cordarone) 200 mg DAILY PO 12/14/17 09:00 12/25/17 08:31 (Lipitor) 40 mg HS PO 12/13/17 21:00 12/24/17 21:25 (Coreg) 12.5 mg DAILY PO 12/14/17 09:00 12/25/17 08:31 (Depakote Dr) 500 mg TID PO 12/13/17 18:00 3/8/18 11:54 (Neurontin) 300 mg TID PO 12/13/17 18:00 12/25/17 11:55 (Aldactone) 25 mg BID@18 PO 12/13/17 18:00 12/25/17 08:32 (Brethine Inj) 1 mg UNSCH PRN SQ 12/14/17 10:45 (Apresoline Inj) 10 mg Q30M PRN IV PUSH 12/17/17 05:45 12/19/17 09:23 (Duoneb Neb) 1 ampule Q2HR NEB PRN NEB 12/17/17 14:15 12/17/17 17:02 (Flomax) 0.8 mg HS PO 12/17/17 21:00 12/21/17 22:11 (Pravachol) 40 mg DAILY PO 12/18/17 09:00 12/25/17 08:33 (SEROquel) 25 mg BID@,12 PO 12/18/17 09:00 12/25/17 11:55 (Prinivil) 20 mg DAILY PO 12/19/17 09:00 12/25/17 08:32 (NS Flush) 2 ml UNSCH PRN IV FLUSH 12/18/17 18:15 (NS Flush) 2 ml BID IV FLUSH 12/18/17 21:00 12/25/17 08:30 (Aspirin Chew) 81 mg DAILY PO 12/19/17 09:00 Future hold 12/22/17 08:39 (Plavix) 75 mg DAILY PO 12/19/17 09:00 Future hold 12/22/17 08:39 (Eliquis) 5 mg BID PO 12/19/17 11:15 Future Hold 12/22/17 08:39 (Norvasc) 5 mg DAILY PO 12/20/17 09:00 12/25/17 08:32 (Catapres) 0.1 mg Q6H PRN PO 12/19/17 15:30 (Lasix) 40 mg DAILY PO 12/20/17 09:00 12/25/17 08:32 (Deltasone) 20 mg BID PO 12/19/17 21:00 12/25/17 08:33 Heparin Sodium/ Dextrose 250 ml @ 9 mls/hr TITRATE PRN IV 12/22/17 11:00 12/24/17 21:18 (Ultracet 37.5-325 Mg) 1 tab Q4H PRN PO 12/22/17 16:00 (Ultram) 100 mg Q8HR PRN PO 12/23/17 10:00 12/25/17 08:34 (Vasotec Inj) 2.5 mg Q6H PRN IV PUSH 12/24/17 11:00 (Apresoline) 10 mg Q6HR PRN PO 12/24/17 12:00 Family Psych History He denies family psychiatric history Social History Patient was born and raised in [place], he lives with his girlfriend in [facility], 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 2) Verbal communication Physical Exam No tremors, no psychomotor agitation or retardation, no EPS, no stiffness Vital Signs Vital Signs Date Time Temp Pulse Resp B/P (MAP) Pulse Ox O2 Delivery O2 Flow Rate FiO2 12/25/17 12:00 97.6 46 22 118/69 (85) 97 12/25/17 09:00 Nasal Cannula 2.00 12/22/17 20:38 21 I/O 12/25/17 12/25/17 12/26/17 08:00 16:00 00:00 Output Total 1000 ml Balance -1000 ml Lab Results Date/Time Source Procedure Growth Status 12/12/17 14:00 Blood Peripheral Aerobic Blood Culture - Final NO GROWTH IN 5 DAYS Complete 12/12/17 14:00 Blood Peripheral Anaerobic Blood Culture - Final NO GROWTH IN 5 DAYS Complete 12/13/17 14:00 Sputum Endotracheal Gram Stain - Final Complete 12/13/17 14:00 Sputum Endotracheal Sputum Culture - Final NO GROWTH IN 48 HOURS. Complete 12/13/17 12:22 Urine Catheterized Urine Urine Culture - Final NO GROWTH IN 48 HOURS. Complete Mental Status Examination Appearance: Appropriate Consciousness: Alert Orientation: x4 Motor Activity: Normal gait Speech: Unremarkable Language: Adequate Fund of Knowledge: Adequate Attention and Concentration: Adequate Memory: Unremarkable Mood: Appropriate Affect: Appropriate Thought Process & Associations: Intact Thought Content: Appropriate Hallucination Type: None Delusion Type: None Suicidal Ideation: No Suicidal Plan: No Suicidal Intention: No Homicidal Ideation: No Homicidal Plan: No Homicidal Intention: No Insight: Adequate Judgment: Adequate Assessment & Plan Problem List: (1) Delirium due to another medical condition ICD Codes: F05 - Delirium due to known physiological condition Assessment & Plan: On psychiatric evaluation today the patient does not present any significant, every or concerning neuropsychiatric symptoms that require an immediate psychiatric attention. The patient denies depressive symptoms, denies anxiety, denies reji and psychosis. He denies suicidal and homicidal ideation, he denies visual and auditory hallucinations. At the moment of the evaluation the patient is logical, coherent and relevant, oriented 3. She has reported to be agitated, verbally abusive, had to be physically restrained in a few occasions due to disorganized behavior and confusion. My opinion is that the patient has been presenting delirium most probably related with his multiple underlying medical conditions, especially CHF , acute respiratory failure and postoperative state. Continue Seroquel 25 mg twice a day to prevent psychosis, will add Haldol 2 mg IM every 8 hours when necessary severe agitation and aggression. Continue Depakote 500 mg twice a day for bipolar disorder. Cymbalta 60 mg. He does not meet criteria for psychiatric admission at this moment. will follow up. (2) CHF (congestive heart failure) ICD Codes: I50.9 - Heart failure, unspecified Assessment & Plan Estimated LOS: Tom Mary MD Dec 25, 2017 13:30
[2017-12-25] MEDS ORDERED: MIDAZOLAM HCL 2 MG/2 ML VIAL ONE (13:45)
[2017-12-25] MEDS ORDERED: IOHEXOL 350 MG/ML 50 ML BTL (for RAD DIAG) OTHER ONE (14:37)
--- NOTE | 2017-12-25 16:10 | RADRPT ---
[place] COMPARISON: CHOLECYSTOSTOMY, PERCUTANEOUS, December 14, 2017, 11:54. INDICATIONS : Acute cholecystitis. Patient had tube but it was pulled out. MEDICAL HISTORY : 1. HTN 2. CHF 3. Bipolar 4. CHF SURGICAL HISTORY : 1. Pacemaker. 2. Coronary stent 3. CABG 4. Lt shoulder surgery ENCOUNTER: Subsequent ACUITY: 2 weeks PAIN SCORE: 0/10 FLUORO TIME: 1.0 minutes IMAGE SERIES: 2 SEDATION TIME: 15 minutes CONTRAST: 10 cc Omnipaque (iohexol) 350 MEDICATION(S): 1.) 1.5 mg midazolam (Versed) IV 2.) 75 mcg fentanyl (Sublimaze) IV DEVICE(S): 1.) 8 [place] EXPEL All purpose drain PROCEDURE : 1. Ultrasound guided puncture of the gallbladder. 2. Percutaneous cholangiogram. 3. Percutaneous cholecystostomy tube placement. 4. Conscious sedation with continuous EKG and oximetry monitoring. The risks, benefits and alternatives to the procedure were explained and verbal and written consent w as obtained. The site was prepped in sterile fashion. Full sterile technique was used, including ca p, mask, sterile gloves and gown and a large sterile sheet. Hand hygiene and 2% chlorhexidine and/or betadine/alcohol prep was utilized per protocol for cutaneous antisepsis. Sterile gel and sterile p robe cover were utilized for ultrasound guidance. The skin and subcutaneous tissues were infiltrated with local anesthetic solution. With ultrasound and fluoroscopic guidance the gallbladder was punctured with a micropuncture set and a 4 [place] dilator was placed. Injection of positive contrast demonstrates position within the gallb ladder. A 0.035 guidewire was placed within the gallbladder lumen and dilatation was performed to ac cept the prescribed catheter. Conscious sedation was performed with the prescribed dosages and duration as above in the presence of an independent trained radiology nurse to assist in the monitoring of the patient. EKG and oximetry remained stable throughout the procedure. The patient tolerated the procedure well and there were n o complications. The patient was sent to post anesthesia recovery in stable condition. CONCLUSION: Uncomplicated percutaneous cholecystostomy as above. Dino Coyne MD on December 25, 2017 at 16:08 Board Certified Radiologist. This report was verified electronically.
--- NOTE | 2017-12-25 18:04 | HHI.PR ---
Subjective Subjective Notes Patient feeling OK after procedure. Cholecystostomy tube replaced Objective Vitals/I&O Vital Signs Date Time Temp Pulse Resp B/P (MAP) Pulse Ox O2 Delivery O2 Flow Rate FiO2 12/25/17 17:20 98 Nasal Cannula 2.00 12/25/17 15:50 45 20 116/63 (80) 12/25/17 15:20 97.8 12/22/17 20:38 21 Labs Date/Time Source Procedure Growth Status 12/12/17 14:00 Blood Peripheral Aerobic Blood Culture - Final NO GROWTH IN 5 DAYS Complete 12/12/17 14:00 Blood Peripheral Anaerobic Blood Culture - Final NO GROWTH IN 5 DAYS Complete 12/13/17 14:00 Sputum Endotracheal Gram Stain - Final Complete 12/13/17 14:00 Sputum Endotracheal Sputum Culture - Final NO GROWTH IN 48 HOURS. Complete 12/13/17 12:22 Urine Catheterized Urine Urine Culture - Final NO GROWTH IN 48 HOURS. Complete Radiology Last 48 hours Impressions Abdomen/Pelvis CT 12/12/17 0334 Signed Impressions: Service Date/Time: Tuesday, December 12, 2017 04:07 - CONCLUSION: 1. Cholelithiasis and with CT findings of concern for early or mild acute cholecystitis in the proper clinical setting. No duct stone or obstruction. 2. No other acute abnormalities are demonstrated. Ventral hernia containing transverse colon but without evidence of obstruction or strangulation. Aortofemoral bypass changes and appears patent. Iain Barnett MD Chest X-Ray 12/12/17 0141 Signed Impressions: Service Date/Time: Tuesday, December 12, 2017 02:06 - CONCLUSION: No evidence of acute cardiopulmonary disease. Resolved bibasilar consolidation.. Iain Barnett MD Abdomen: Non-distended, Other (Tender around angela tube site; bloody output in tubing) A/P Assessment and Plan 72 year old male with acute cholecystitis; recent stent placement on OAC -S/p IR placed angela tube ---fell out and now replaced -labs pending; recheck CBC in AM -Will continue to follow -Hopefully tube will stay in for one month, after which he would be safer to undergo lap angela (per Dr. Livingston). Sergio Martinez MD Dec 25, 2017 18:04
[2017-12-25 19:01] LABS: AUTOMATED NEUTROPHIL # 11.5 TH/MM3 (1.8-7.7); HEMATOCRIT 29.2 % (39.0-51.0); HEMOGLOBIN 9.9 GM/DL (13.0-17.0); LYMPH % 10.2 % (9.0-44.0); LYMPHOCYTE # 1.4 TH/MM3 (1.0-4.8); MEAN CELL VOLUME 94.9 FL (80.0-100.0); MEAN CORPUSCULAR HEMOGLOBIN 32.3 PG (27.0-34.0); MONO % 4.3 % (0.0-8.0); MONOCYTE # 0.6 TH/MM3 (0-0.9); NEUT % 85.5 % (16.0-70.0); PLATELET COUNT 230 TH/MM3 (150-450); RED BLOOD COUNT 3.08 MIL/MM3 (4.50-5.90); RED CELL DISTRIBUTION WIDTH 14.9 % (11.6-17.2); WHITE BLOOD COUNT 13.5 TH/MM3 (4.0-11.0)
[2017-12-25 19:02] LABS: ALBUMIN 2.5 GM/DL (3.4-5.0); AST (GOT) 21 U/L (15-37); BICARBONATE 27.6 MEQ/L (21.0-32.0); BLOOD UREA NITROGEN 35 MG/DL (7-18); CALCIUM 8.6 MG/DL (8.5-10.1); CHLORIDE 103 MEQ/L (98-107); CREATININE 1.22 MG/DL (0.60-1.30); GLOMERULAR FILTRATION RATE 58 ML/MIN (>89); GLUCOSE,RANDOM 130 MG/DL (74-106); MAGNESIUM 2.2 MG/DL (1.5-2.5); SODIUM (NA) 141 MEQ/L (136-145)
[2017-12-25 19:06] LABS: ALKALINE PHOSPHATASE 51 U/L (45-117); ALT (GPT) 39 U/L (12-78); TOTAL BILIRUBIN ADULT 0.4 MG/DL (0.2-1.0); TOTAL PROTEIN 6.2 GM/DL (6.4-8.2)
[2017-12-25] MEDS: TAMSULOSIN HCL 0.4 MG CAP PO SCH (20:39)
[2017-12-25] MEDS: ATORVASTATIN 40 MG TAB PO SCH (20:39)
[2017-12-25] MEDS: traMADol/ACETAMINOPHEN 37.5/325 1 TAB PO PRN (20:46)
[2017-12-25] MEDS: HEPARIN-D5W 25,000 U/250 ML 250 ML IV PRN (20:55)
[2017-12-26] VITALS: BP 134/60; PULSE 57; RESP 20; TEMP 97.5; O2SAT 96
[2017-12-26] MEDS: PIPERACIL-TAZO 3.375 GM PREMIX 50 ML IV SCH ×2 (00:08→05:49)
[2017-12-26] MEDS: traMADol/ACETAMINOPHEN 37.5/325 1 TAB PO PRN (02:23)
[2017-12-26 03:26] LABS: AUTOMATED NEUTROPHIL # 11.5 TH/MM3 (1.8-7.7); HEMATOCRIT 25.1 % (39.0-51.0); HEMOGLOBIN 8.5 GM/DL (13.0-17.0); LYMPH % 8.1 % (9.0-44.0); LYMPHOCYTE # 1.1 TH/MM3 (1.0-4.8); MONO % 5.9 % (0.0-8.0); MONOCYTE # 0.8 TH/MM3 (0-0.9); PLATELET COUNT 189 TH/MM3 (150-450); RED BLOOD COUNT 2.67 MIL/MM3 (4.50-5.90); RED CELL DISTRIBUTION WIDTH 15.2 % (11.6-17.2); WHITE BLOOD COUNT 13.4 TH/MM3 (4.0-11.0)
[2017-12-26 04:00] VITALS: BP 123/88; PULSE 56; PULSE 57; RESP 20; TEMP 97.7; O2SAT 93
[2017-12-26] MEDS: CHLORHEXIDINE 0.12% (ORAL KIT) 15 ML CUP MT SCH (08:00)
[2017-12-26] MEDS: DIVALPROEX DR 500 MG TABEC PO SCH (08:07)
[2017-12-26] MEDS: SPIRONOLACTONE 25 MG TAB PO SCH (08:07)
[2017-12-26] MEDS: amLODIPine BESYLATE 5 MG TAB PO SCH (08:08)
[2017-12-26] MEDS: AMIODARONE 200 MG TAB PO SCH (08:08)
[2017-12-26] MEDS: GABAPENTIN 300 MG CAP PO SCH (08:08)
[2017-12-26] MEDS: ASPIRIN 81 MG CHEW TAB PO SCH (08:08)
[2017-12-26] MEDS: QUEtiapine FUMARATE 25 MG TAB PO SCH (08:08)
[2017-12-26] MEDS: FUROSEMIDE 40 MG TAB PO SCH (08:08)
[2017-12-26] MEDS: CLOPIDOGREL 75 MG TAB PO SCH (08:08)
[2017-12-26] MEDS: predniSONE 20 MG TAB PO SCH (08:09)
[2017-12-26] MEDS: DOCUSATE SODIUM 50 MG/SENNA 8.6 MG TAB PO SCH (08:09)
[2017-12-26] MEDS: SODIUM CHLORIDE 0.9% FLUSH 10 ML FLUSH IV FLUSH SCH (08:09)
[2017-12-26] MEDS: PRAVASTATIN SOD 40 MG TAB PO SCH (08:09)
[2017-12-26] MEDS: CARVEDILOL 12.5 MG TAB PO SCH (08:09)
[2017-12-26] MEDS: traMADol HCL 50 MG TAB PO PRN (08:09)
[2017-12-26] MEDS: LISINOPRIL 20 MG TAB PO SCH (08:09)
[2017-12-26 08:20] VITALS: BP 159/66; PULSE 63; RESP 18; TEMP 98.1; O2SAT 97
--- NOTE | 2017-12-26 09:47 | HHI.PR ---
cc: Sergio Martinez MD Subjective Subjective Notes Resting in bed "Be careful. There is syrup on the floor." Objective Vitals/I&O Vital Signs Date Time Temp Pulse Resp B/P (MAP) Pulse Ox O2 Delivery O2 Flow Rate FiO2 12/26/17 09:16 97 2.00 12/26/17 08:20 98.1 63 18 159/66 (97) 12/25/17 20:45 Room Air 12/22/17 20:38 21 Labs Laboratory Tests Test 12/25/17 17:33 12/26/17 03:01 White Blood Count 13.5 13.4 Red Blood Count 3.08 2.67 Hemoglobin 9.9 8.5 Hematocrit 29.2 25.1 Mean Corpuscular Volume 94.9 94.0 Mean Corpuscular Hemoglobin 32.3 32.0 Mean Corpuscular Hemoglobin Concent 34.0 34.0 Red Cell Distribution Width 14.9 15.2 Platelet Count 230 189 Mean Platelet Volume 8.0 8.0 Neutrophils (%) (Auto) 85.5 86.0 Lymphocytes (%) (Auto) 10.2 8.1 Monocytes (%) (Auto) 4.3 5.9 Eosinophils (%) (Auto) 0.0 0.0 Basophils (%) (Auto) 0.0 0.0 Neutrophils # (Auto) 11.5 11.5 Lymphocytes # (Auto) 1.4 1.1 Monocytes # (Auto) 0.6 0.8 Eosinophils # (Auto) 0.0 0.0 Basophils # (Auto) 0.0 0.0 CBC Comment DIFF FINAL DIFF FINAL Differential Comment Activated Partial Thromboplast Time 19.1 64.6 Blood Urea Nitrogen 35 Creatinine 1.22 Random Glucose 130 Total Protein 6.2 Albumin 2.5 Calcium Level 8.6 Magnesium Level 2.2 Alkaline Phosphatase 51 Aspartate Amino Transf (AST/SGOT) 21 Alanine Aminotransferase (ALT/SGPT) 39 Total Bilirubin 0.4 Sodium Level 141 Potassium Level 4.0 Chloride Level 103 Carbon Dioxide Level 27.6 Anion Gap 10 Estimat Glomerular Filtration Rate 58 Date/Time Source Procedure Growth Status 12/12/17 14:00 Blood Peripheral Aerobic Blood Culture - Final NO GROWTH IN 5 DAYS Complete 12/12/17 14:00 Blood Peripheral Anaerobic Blood Culture - Final NO GROWTH IN 5 DAYS Complete 12/13/17 14:00 Sputum Endotracheal Gram Stain - Final Complete 12/13/17 14:00 Sputum Endotracheal Sputum Culture - Final NO GROWTH IN 48 HOURS. Complete 12/13/17 12:22 Urine Catheterized Urine Urine Culture - Final NO GROWTH IN 48 HOURS. Complete Radiology Last 48 hours Impressions Abdomen/Pelvis CT 12/12/17 0334 Signed Impressions: Service Date/Time: Tuesday, December 12, 2017 04:07 - CONCLUSION: 1. Cholelithiasis and with CT findings of concern for early or mild acute cholecystitis in the proper clinical setting. No duct stone or obstruction. 2. No other acute abnormalities are demonstrated. Ventral hernia containing transverse colon but without evidence of obstruction or strangulation. Aortofemoral bypass changes and appears patent. Iain Barnett MD Chest X-Ray 12/12/17 0141 Signed Impressions: Service Date/Time: Tuesday, December 12, 2017 02:06 - CONCLUSION: No evidence of acute cardiopulmonary disease. Resolved bibasilar consolidation.. Iain Barnett MD Cardiovascular: Regular Lungs: Clear Abdomen: Other (angela tube in place to gravity bag; minimal pain at insertion site ) Extremities: No edema A/P Assessment and Plan 72 year old male with acute cholecystitis; recent stent placement on OAC -S/p replacement of IR placed angela tube --- continue to gravity -Heparin drip restarted; will need to transition back to OAC -WBC continues to trend down; WBC 13.4 -Continue antibiotics -Spoke to Dr. Monaco--- okay to DC from GS standpoint and follow up in a few weeks in the office---would likely benefit form Rehab Mag Means/Feather Separator LIEN Dec 26, 2017 09:47
[2017-12-26] MEDS ORDERED: AMLO5 PO (11:59)
[2017-12-26] MEDS ORDERED: LISI10TA3 PO (11:59)
[2017-12-26 12:00] VITALS: O2SAT 94
[2017-12-26 12:01] VITALS: BP 141/68; PULSE 54; RESP 18; TEMP 98.1; O2SAT 94
[2017-12-26] MEDS ORDERED: PRED10PA PO (12:07)
[2017-12-26] MEDS ORDERED: AUGM875T3 PO (12:09)
--- NOTE | 2017-12-26 12:14 | HHI.DS ---
Discharge Summary Admission Date Dec 12, 2017 at 18:14 Discharge Date: Dec 26, 2017 Admitting Diagnosis Acute cholecystitis (1) Acute cholecystitis ICD Code: K81.0 - Acute cholecystitis Status: Acute (2) Acute respiratory failure ICD Code: J96.00 - Acute respiratory failure, unspecified whether with hypoxia or hypercapnia (3) Acute on chronic systolic (congestive) heart failure ICD Code: I50.23 - Acute on chronic systolic (congestive) heart failure (4) CAD (coronary artery disease) ICD Code: I25.10 - Atherosclerotic heart disease of [place] coronary artery without angina pectoris (5) Atrial fibrillation ICD Code: I48.91 - Unspecified atrial fibrillation (6) HTN (hypertension) ICD Code: I10 - Essential (primary) hypertension Procedures Status post cardiac catheterization. S/p IR gallbladder tube placement , replacement x 1 Brief History - From Admission This is a 72-year-old male patient with a known medical history of CAD with stent placement on Plavix, CHF, atrial fibrillation on Eliquis, hyperlipidemia and HTN who presented to the ED with complaints of right upper quadrant abdominal pain. Patient seen and examined in hospital room, just received IV morphine for abdominal pain, patient is alert and oriented although with intermittent lethargy. Patient expressing some confusion regarding events leading up to hospital. Upon review of records supposedly patient's abdominal pain started around sixteen hundred yesterday afternoon after eating a large lunch, the pain was located in his right upper quadrant, patient states it was very severe and sharp in nature, denies any associated nausea or vomiting. Patient denies any recent fevers, chills, cough, shortness of breath, diarrhea or dysuria. Patient states he was in his normal state of health up until yesterday afternoon. CT of the abdomen/pelvis was done in ED showing cholelithiasis and concern for mild or moderate Cholecystitis. Patient does have chronic atrial fibrillation and on Eliquis as well as previous stent placement on Plavix. General surgery has been following patient with possible cholecystectomy, although patient is taking blood thinner and Plavix and unaware of time when cardiac stents were placed. CBC/BMP: 12/26/17 0301 12/25/17 1733 Significant Findings Laboratory Tests Test 12/23/17 13:54 12/24/17 04:45 12/24/17 08:25 12/24/17 11:11 Activated Partial Thromboplast Time 50.4 SEC (24.3-30.1) 40.4 SEC (24.3-30.1) Urine Glucose (UA) 70 mg/dL (NEG) Urine Ketones 10 mg/dL (NEG) Urine Occult Blood TRACE (NEG) Urine Mucus FEW /lpf (OCC) White Blood Count 24.0 TH/MM3 (4.0-11.0) Red Blood Count 3.38 MIL/MM3 (4.50-5.90) Hemoglobin 10.5 GM/DL (13.0-17.0) Hematocrit 31.9 % (39.0-51.0) Neutrophils (%) (Auto) 79.7 % (16.0-70.0) Neutrophils # (Auto) 19.2 TH/MM3 (1.8-7.7) Monocytes # (Auto) 1.4 TH/MM3 (0-0.9) Eosinophils # (Auto) 0.5 TH/MM3 (0-0.4) Test 12/25/17 17:33 12/26/17 03:01 White Blood Count 13.5 TH/MM3 (4.0-11.0) 13.4 TH/MM3 (4.0-11.0) Red Blood Count 3.08 MIL/MM3 (4.50-5.90) 2.67 MIL/MM3 (4.50-5.90) Hemoglobin 9.9 GM/DL (13.0-17.0) 8.5 GM/DL (13.0-17.0) Hematocrit 29.2 % (39.0-51.0) 25.1 % (39.0-51.0) Neutrophils (%) (Auto) 85.5 % (16.0-70.0) 86.0 % (16.0-70.0) Neutrophils # (Auto) 11.5 TH/MM3 (1.8-7.7) 11.5 TH/MM3 (1.8-7.7) Activated Partial Thromboplast Time 19.1 SEC (24.3-30.1) 64.6 SEC (24.3-30.1) Blood Urea Nitrogen 35 MG/DL (7-18) Random Glucose 130 MG/DL (74-106) Total Protein 6.2 GM/DL (6.4-8.2) Albumin 2.5 GM/DL (3.4-5.0) Estimat Glomerular Filtration Rate 58 ML/MIN (>89) Lymphocytes (%) (Auto) 8.1 % (9.0-44.0) PE at Discharge sitting up in bed, NAD, lungs clear BL abd soft, ND, drain in place over right abdomen Hospital Course Patient was admitted originally to [facility]. Was started on IV antibiotics but was not cleared for surgery from cardiology standpoint given patient's need for blood thinners. His symptoms worsen including his abdominal pain, was transferred to the ICU at [facility]. Patient eventually did undergo percutaneous tube decompression of the gallbladder. He did also undergo bare-metal stent placement of the right RCA on December 18. His gallbladder tube did become dislodged and was replaced successfully. Patient had been on heparin and was transitioned back to Eliquis per cardiology. He was cleared for discharge from general surgery standpoint with Augmentin. Cardiology recommended that the patient be continued on aspirin Plavix and Eliquis upon discharge, to follow-up closely cardiology for modification of this regimen as an outpatient within the next 2 weeks. Patient has met maximal benefit from hospitalization is clinically stable for discharge. Pt Condition on Discharge: Stable Discharge Disposition: Disch w/ Home Health Serv Discharge Time: > 30 minutes Discharge Instructions DIET: Follow Instructions for: Heart Healthy Diet, Low Sodium Diet Activities you can perform: Regular-No Restrictions Follow up Referrals: Cardiology - 1 Week PCP Follow-up - 2-3 Days Pulmonology - 2 Weeks Surgical - 2 Weeks with Sergio Martinez MD New Medications: Amoxicillin-Clavulanate (Augmentin) 875-125 Mg Tab 1 TAB PO BID for Infection, #10 TAB 0 Refills Hydrocodone-Acetaminophen ([place]) 5 Mg-325 Mg Tab 1 TAB PO Q6H PRN for PAIN, #30 TAB 0 Refills Prednisone (21) 10 mg tab Dose Pack (Prednisone (21) 10 mg tab Dose Pack) 10 Mg Pack 10 MG PO DIRECTED for Inflammation, #1 DSPK 0 Refills Amlodipine (Norvasc) 5 Mg Tab 5 MG PO DAILY for Blood Pressure Management, #30 TAB Aspirin (Tgt Aspirin) 81 Mg Chw 81 MG PO DAILY for Blood Clot Prevention, #30 EA Furosemide (Furosemide) 40 Mg Tab 40 MG PO DAILY for Blood Pressure Management, #30 TAB Quetiapine (Seroquel) 25 Mg Tab 25 MG PO BID@09,12 for anxiety, #60 TAB Spironolactone (Aldactone) 25 Mg Tab 25 MG PO BID@09,18 for Blood Pressure Management, #30 TAB Continued Medications: Amiodarone (Amiodarone) 200 Mg Tab 200 MG PO DAILY for Regulate Heart Beat, #30 TAB 0 Refills Apixaban (Eliquis) 5 Mg Tab 5 MG PO BID for Blood Clot Prevention, #60 TAB 0 Refills Atorvastatin (Atorvastatin) 40 Mg Tab 40 MG PO HS for heart disease, #30 TAB Carvedilol (Coreg) 12.5 Mg Tab 12.5 MG PO DAILY for Regulate Heart Beat, #60 TAB Clopidogrel (Plavix) 75 Mg Tab 75 MG PO DAILY for Blood Clot Prevention, #30 TAB [address] (Divalproex DR) 500 Mg Tabdr 500 MG PO TID for Control Seizures, #60 TAB [address] (Duloxetine DR) 60 Mg Capdr 60 MG PO DAILY, #30 CAP 0 Refills Gabapentin (Gabapentin) 300 Mg Cap 300 MG PO TID, #90 CAP 0 Refills Lisinopril (Lisinopril) 10 Mg Tab 10 MG PO DAILY for heart failure, #30 TAB 0 Refills (This prescription has been renewed) Multiple Vitamin (Multiple Vitamin) 1 Tab 1 TAB PO DAILY for Nutritional Supplement, TAB 0 Refills Potassium Chloride ER (Potassium Chloride ER) 20 Meq Tab 20 MEQ PO DAILY for Electrolyte Replacement, #30 TAB 0 Refills Tamsulosin (Tamsulosin) 0.4 Mg Cap 0.8 MG PO HS for Manage Prostate Problems, #60 CAP 0 Refills Tramadol (Tramadol) 50 Mg Tab 50 MG PO Q6H PRN for PAIN, TAB 0 Refills Discontinued Medications: Furosemide (Furosemide) 20 Mg Tab 20 MG PO BID for heart failure, #60 TAB 0 Refills Simvastatin (Simvastatin) 20 Mg Tab 20 MG PO DAILY for Cholesterol Management, #30 TAB 0 Refills Ceicl Monaco MD Dec 26, 2017 12:14
--- NOTE | 2017-12-26 12:15 | HHI.FF ---
Face to Face Verification Diagnosis: (1) Cholecystitis (2) CHF (congestive heart failure) (3) Delirium due to another medical condition Home Health Nursing Order: Signs/symptoms of disease process CHF education Wound care and dressing changes Nursing assessment with vital signs I have seen patient Eliseo Goff on 12/26/17. My clinical findings support the need for the requested home health care services because: Med compliance is questionable I certify that my clinical findings support that this patient is homebound because: Poor cardiac reserve Cecil Monaco MD Dec 26, 2017 12:15
[2017-12-26 12:35] VITALS: PULSE 50
--- NOTE | 2017-12-30 08:56 | RADRPT ---
EXAM DATE/TIME: 12/25/2017 14:49 [facility] COMPARISON: CHOLECYSTOSTOMY, PERCUTANEOUS, December 14, 2017, 11:54. INDICATIONS : Acute cholecystitis. Patient had tube but it was pulled out. MEDICAL HISTORY : 1. HTN 2. CHF 3. Bipolar 4. CHF SURGICAL HISTORY : 1. Pacemaker. 2. Coronary stent 3. CABG 4. Lt shoulder surgery ENCOUNTER: Subsequent ACUITY: 2 weeks PAIN SCORE: 0/10 FLUORO TIME: 1.0 minutes IMAGE SERIES: 2 SEDATION TIME: 15 minutes CONTRAST: 10 cc Omnipaque (iohexol) 350 MEDICATION(S): 1.) 1.5 mg midazolam (Versed) IV 2.) 75 mcg fentanyl (Sublimaze) IV DEVICE(S): 1.) 8 [place] EXPEL All purpose drain PROCEDURE : 1. Ultrasound guided puncture of the gallbladder. 2. Percutaneous cholangiogram. 3. Percutaneous cholecystostomy tube placement. 4. Conscious sedation with continuous EKG and oximetry monitoring. The risks, benefits and alternatives to the procedure were explained and verbal and written consent w as obtained. The site was prepped in sterile fashion. Full sterile technique was used, including ca p, mask, sterile gloves and gown and a large sterile sheet. Hand hygiene and 2% chlorhexidine and/or betadine/alcohol prep was utilized per protocol for cutaneous antisepsis. Sterile gel and sterile p robe cover were utilized for ultrasound guidance. The skin and subcutaneous tissues were infiltrated with local anesthetic solution. With ultrasound and fluoroscopic guidance the gallbladder was punctured with a micropuncture set and a 4 [place] dilator was placed. Injection of positive contrast demonstrates position within the gallb ladder. A 0.035 guidewire was placed within the gallbladder lumen and dilatation was performed to ac cept the prescribed catheter. Conscious sedation was performed with the prescribed dosages and duration as above in the presence of an independent trained radiology nurse to assist in the monitoring of the patient. EKG and oximetry remained stable throughout the procedure. The patient tolerated the procedure well and there were n o complications. The patient was sent to post anesthesia recovery in stable condition. CONCLUSION: Uncomplicated percutaneous cholecystostomy as above. Dino Coyne MD on December 25, 2017 at 16:08 Board Certified Radiologist. This report was verified electronically.
== END 2017-12-26 15:08 | disposition home health service (06) | DRG 853 ==
LOC: PHED 01:25 → PHEDA 05:51 → INTOOBSV 05:51 → PH3A 06:27 → OBSVTOIN 18:14 → N07A 12-13 01:26 → HIMW 12-13 11:40 → N04B 12-19 19:44
PROVIDERS: ADMIT Hospitalist; ATTEND Hospitalist
PROC: 5A1945Z Respiratory Ventilation, 24-96 Consecutive Hours (ICD-10-PCS; 2017-12-13)
PROC: 0BH17EZ Insertion of Endotracheal Airway into Trachea, Via Natural or Artificial Opening (ICD-10-PCS; 2017-12-13)
PROC: 0F9430Z Drainage of Gallbladder with Drainage Device, Percutaneous Approach (ICD-10-PCS; 2017-12-14)
PROC: 4A023N8 Measurement of Cardiac Sampling and Pressure, Bilateral, Percutaneous Approach (ICD-10-PCS; 2017-12-18)
PROC: B2111ZZ Fluoroscopy of Multiple Coronary Arteries using Low Osmolar Contrast (ICD-10-PCS; 2017-12-18)
PROC: B2151ZZ Fluoroscopy of Left Heart using Low Osmolar Contrast (ICD-10-PCS; 2017-12-18)
PROC: B2131ZZ Fluoroscopy of Multiple Coronary Artery Bypass Grafts using Low Osmolar Contrast (ICD-10-PCS; 2017-12-18)
PROC: 02703DZ Dilation of Coronary Artery, One Artery with Intraluminal Device, Percutaneous Approach (ICD-10-PCS; principal; 2017-12-18 16:00)
PROC: 0F9430Z Drainage of Gallbladder with Drainage Device, Percutaneous Approach (ICD-10-PCS; 2017-12-25)
DX: A41.9 Sepsis, unspecified organism (principal); J96.01 Acute respiratory failure with hypoxia; R65.21 Severe sepsis with septic shock; G93.40 Encephalopathy, unspecified; I50.23 Acute on chronic systolic (congestive) heart failure; J18.9 Pneumonia, unspecified organism; N17.9 Acute kidney failure, unspecified; I13.0 Hypertensive heart and chronic kidney disease with heart failure and stage 1 through stage 4 chronic kidney disease, or unspecified chronic kidney disease; I48.0 Paroxysmal atrial fibrillation; I25.110 Atherosclerotic heart disease of native coronary artery with unstable angina pectoris; F05 Delirium due to known physiological condition; K80.00 Calculus of gallbladder with acute cholecystitis without obstruction; J44.0 Chronic obstructive pulmonary disease with (acute) lower respiratory infection; G57.90 Unspecified mononeuropathy of unspecified lower limb; I48.2 Chronic atrial fibrillation; I25.82 Chronic total occlusion of coronary artery; E78.5 Hyperlipidemia, unspecified; F31.9 Bipolar disorder, unspecified; F41.9 Anxiety disorder, unspecified; I73.9 Peripheral vascular disease, unspecified; I25.5 Ischemic cardiomyopathy; N18.9 Chronic kidney disease, unspecified; E66.9 Obesity, unspecified; E87.6 Hypokalemia; D64.9 Anemia, unspecified; I44.7 Left bundle-branch block, unspecified; Z95.810 Presence of automatic (implantable) cardiac defibrillator; Z68.27 Body mass index [BMI] 27.0-27.9, adult; Z79.899 Other long term (current) drug therapy; Z79.02 Long term (current) use of antithrombotics/antiplatelets; Z95.1 Presence of aortocoronary bypass graft; Z95.5 Presence of coronary angioplasty implant and graft; Z78.1 Physical restraint status
CPT/HCPCS: 31500; 36600; 47490; 47532; 70450; 71045; 71275; 74177; 76705; 76937; 80048; 80053; 80061; 81001; 82550; 82552; 82805; 82810; 83605; 83690; 83735; 83880; 84100; 84484; 85002; 85007; 85025; 85027; 85610; 85730; 87015; 87040; 87070; 87086; 87205; 87641; 92928; 93005; 93460; 94002; 94003; 94664; 96361; 96374; 96375; 96376; 99152; 99153; J1265; C1729; C1769; C1876; C1887; C1893; C1894; J0171; J0360; J0456; J1170; J1644; J1650; J1940; J2060; J2250; J2270; J2405; J2543; J2920; J2930; J3010; J3370; J7030; J7050; J7060; J7512; Q9967

== ENCOUNTER 2017-12-29 00:15 | Emergency (ER) | payer MEDICARE, MEDICAID ==
[~2017-12-29] VITALS: Ht 165.1 cm; Wt 82.0 kg
[~2017-12-29 00:15] MED LIST changes: +AMLO5 PO; +ASPI81 PO; +AUGM875T3 PO; -FURO20TA PO; +FURO40TA PO; -LEVO50TA4 PO; +MULTTAB67 PO; +NORC5TAB PO; +PRED10PA PO; +SERO25TA PO; +SPIR25 PO
[2017-12-29 01:11] VITALS: BP 122/58; PULSE 59; RESP 19; TEMP 97.5; O2SAT 98
[2017-12-29 01:51] VITALS: BP 111/55; PULSE 60; RESP 18; O2SAT 100
[2017-12-29] MEDS ORDERED: SIMV20TA PO (01:51)
--- NOTE | 2017-12-29 02:18 | PD ---
HPI Chief Complaint: Respiratory Symptoms Time Seen by Provider: 01:45 Travel History International Travel<30 days: No Contact w/Intl Traveler<30days: No Traveled to known affect area: No History of Present Illness HPI 72yo M with PMH of CAD s/p stent, CHF, afib on eliquis, HLD, HTN is here with multiple complaints. Pt was just discharge on 12/26/17 after a prolong hospital stay where he had percutaneous tube decompression of gallbladder and had stent placement in right RCA. Pt said he was offered rehab but didnt want it at the time but now wants it. Said he is always sob but when he needs to urinate, becomes more sob. He is also urinating more. Denies any fever, chest pain, n/v , abdominal pain, focal weakness or numbness. PFSH Past Medical History Hx Anticoagulant Therapy: Yes Blood Disorders: No Anxiety: Yes Depression: Yes Heart Rhythm Problems: Yes Cancer: No Cardiovascular Problems: Yes (chf,bypass) High Cholesterol: Yes Chemotherapy: No Chest Pain: Yes Congestive Heart Failure: Yes (WITH THIS ADMISSION ) Diminished Hearing: No Endocrine: No Genitourinary: Yes Hypertension: Yes Immune Disorder: No Implanted Vascular Access Dvce: Yes Musculoskeletal: Yes (NEUROPATHY IN LOWER LEGS) Neurologic: No Psychiatric: Yes (BIPOLAR ) Reproductive: No Respiratory: Yes Radiation Therapy: No Tetanus Vaccination: < 5 Years Influenza Vaccination: No Past Surgical History Body Medical Devices: STENT, PACEMAKER, SCREWS IN LEFT SHOULDER Cardiac Surgery: Yes (stent june 05, bypass surgery ) Pacemaker: Yes Other Surgery: Yes Social History Alcohol Use: No Tobacco Use: No Substance Use: No Allergies-Medications (Allergen,Severity, Reaction): Coded Allergies: No Known Allergies (Verified Allergy, Unknown, 12/29/17) Reported Meds & Prescriptions Reported Meds & Active Scripts Active Augmentin (Amoxicillin-Clavulanate) 875-125 Mg Tab 1 Tab PO BID Prednisone (21) 10 mg tab Dose Pack (Prednisone) 10 Mg Pack 10 Mg PO DIRECTED Norvasc (Amlodipine Besylate) 5 Mg Tab 5 Mg PO DAILY Lisinopril 10 Mg Tab 10 Mg PO DAILY [place] (Hydrocodone-Acetaminophen) 5 Mg-325 Mg Tab 1 Tab PO Q6H PRN Furosemide 40 Mg Tab 40 Mg PO DAILY Seroquel (Quetiapine Fumarate) 25 Mg Tab 25 Mg PO BID@09,12 Tgt Aspirin (Aspirin) 81 Mg Chw 81 Mg PO DAILY Aldactone (Spironolactone) 25 Mg Tab 25 Mg PO BID@ Potassium Chloride ER (Potassium Chloride) 20 Meq Tab 20 Meq PO DAILY Eliquis (Apixaban) 5 Mg Tab 5 Mg PO BID Coreg (Carvedilol) 12.5 Mg Tab 12.5 Mg PO DAILY Atorvastatin (Atorvastatin Calcium) 40 Mg Tab 40 Mg PO HS Reported Simvastatin 20 Mg Tab 20 Mg PO DAILY Multiple Vitamin 1 Tab 1 Tab PO DAILY Divalproex DR (Divalproex Sodium) 500 Mg Tabdr 500 Mg PO TID Duloxetine DR (Duloxetine HCl) 60 Mg Capdr 60 Mg PO DAILY Tamsulosin (Tamsulosin HCl) 0.4 Mg Cap 0.8 Mg PO HS Plavix (Clopidogrel Bisulfate) 75 Mg Tab 75 Mg PO DAILY Amiodarone (Amiodarone HCl) 200 Mg Tab 200 Mg PO DAILY Gabapentin 300 Mg Cap 300 Mg PO TID Tramadol (Tramadol HCl) 50 Mg Tab 50 Mg PO Q6H PRN Review of Systems Except as stated in HPI: all other systems reviewed are Neg Physical Exam Narrative GENERAL: 72yo M not in distress. SKIN: Focused skin assessment warm/dry. HEAD: Atraumatic. Normocephalic. EYES: Pupils equal and round. No scleral icterus. No injection or drainage. ENT: No nasal bleeding or discharge. Mucous membranes pink and moist. NECK: Trachea midline. No JVD. CARDIOVASCULAR: Regular rate and rhythm. No murmur appreciated. RESPIRATORY: No accessory muscle use. Clear to auscultation. Breath sounds equal bilaterally. GASTROINTESTINAL: Abdomen soft, mild diffuse tenderness. Percutaneous drain in place. Said it is always tender when you press, which has been unchanged. MUSCULOSKELETAL: No obvious deformities. No clubbing. No cyanosis. No edema. NEUROLOGICAL: Awake and alert. No obvious cranial nerve deficits. Motor grossly within normal limits in all extremities. Sensation intact. Normal speech. PSYCHIATRIC: Appropriate mood and affect; insight and judgment normal. Data Data Last Documented VS Vital Signs Date Time Temp Pulse Resp B/P (MAP) Pulse Ox O2 Delivery O2 Flow Rate FiO2 12/29/17 05:04 62 18 155/66 (95) 100 12/29/17 01:45 Room Air 12/29/17 01:11 97.5 Orders Orders Complete Blood Count With Diff (12/29/17 02:01) Basic Metabolic Panel (Bmp) (12/29/17 02:01) Troponin I (12/29/17 02:01) Electrocardiogram (12/29/17 02:01) Chest, Single Ap (12/29/17 02:01) Urinalysis - C+S If Indicated (12/29/17 02:01) Ed Discharge Order (12/29/17 04:47) Labs Laboratory Tests Test 12/29/17 02:23 12/29/17 04:00 White Blood Count 13.3 TH/MM3 Red Blood Count 3.30 MIL/MM3 Hemoglobin 10.5 GM/DL Hematocrit 31.6 % Mean Corpuscular Volume 95.8 FL Mean Corpuscular Hemoglobin 31.9 PG Mean Corpuscular Hemoglobin Concent 33.3 % Red Cell Distribution Width 15.9 % Platelet Count 253 TH/MM3 Mean Platelet Volume 8.0 FL Neutrophils (%) (Auto) 69.8 % Lymphocytes (%) (Auto) 17.5 % Monocytes (%) (Auto) 11.1 % Eosinophils (%) (Auto) 1.2 % Basophils (%) (Auto) 0.4 % Neutrophils # (Auto) 9.3 TH/MM3 Lymphocytes # (Auto) 2.3 TH/MM3 Monocytes # (Auto) 1.5 TH/MM3 Eosinophils # (Auto) 0.2 TH/MM3 Basophils # (Auto) 0.1 TH/MM3 CBC Comment DIFF FINAL Differential Comment Blood Urea Nitrogen 27 MG/DL Creatinine 1.12 MG/DL Random Glucose 101 MG/DL Calcium Level 8.3 MG/DL Sodium Level 141 MEQ/L Potassium Level 4.5 MEQ/L Chloride Level 105 MEQ/L Carbon Dioxide Level 29.4 MEQ/L Anion Gap 7 MEQ/L Estimat Glomerular Filtration Rate 64 ML/MIN Troponin I 0.04 NG/ML Urine Color YELLOW Urine Turbidity CLEAR Urine pH 7.0 Urine Specific [place] 1.014 Urine Protein NEG mg/dL Urine Glucose (UA) NEG mg/dL Urine Ketones NEG mg/dL Urine Occult Blood NEG Urine Nitrite NEG Urine Bilirubin NEG Urine Urobilinogen 2.0 MG/DL Urine Leukocyte Esterase NEG Urine RBC LESS THAN 1 /hpf Urine WBC LESS THAN 1 /hpf Urine Squamous Epithelial Cells <1 /hpf Urine Hyaline Casts 1 /lpf Urine Mucus FEW /lpf Microscopic Urinalysis Comment CULT NOT INDICATED MDM Medical Decision Making Medical Screen Exam Complete: Yes Emergency Medical Condition: Yes Interpretation(s) EKG: Sinus bradycardia at 56bpm. LAD. TWI I, aVL. ST depression V5, V6. Differential Diagnosis UTI vs. pneumonia vs. malingering Narrative Course 72yo M who was recently discharge here stating that he wants rehab now. He has multiple vague symptoms and I feel that he is here mainly because he wants rehab. Labs reviewed, mild leukocytosis at 13.3 which is not change from . H/H low at 10.5/31.6 which is better than 12/26/17. BUN/creatinine 27/1.12, which is also improve from 12/25/17. Troponin negative. UA showed WBC 1. Culture not indicated. Case management has been called she reviewed the previous block and case maker's note and pt had refused SNF. Pt also had home health that he said was not doing what they are suppose to do. Return precautions given. Diagnosis Primary Impression: Routine medical exam Patient Instructions: General Instructions Departure Forms: Tests/Procedures Additional Instructions: Please follow up with general surgery as outpatient for your drain. Return to the ED if symptoms worsen. Med/Other Pt SpecificInfo: No Change to Meds Disposition: 01 DISCHARGE HOME Condition: Stable Yolie Delvalle DO Dec 29, 2017 02:18
--- NOTE | 2017-12-29 02:29 | RADRPT ---
EXAM DATE/TIME: 12/29/2017 02:13 [facility] COMPARISON: CHEST SINGLE AP, December 15, 2017, 10:02. INDICATIONS : Short of breath. MEDICAL HISTORY : Hypertension, a-fib. SURGICAL HISTORY : Pacemaker. CABG. ENCOUNTER: Initial ACUITY: 1 day PAIN SCORE: 0/10 LOCATION: Bilateral chest FINDINGS: A single portable frontal view of the chest is blurred by breathing motion artifact. Mild cardiomegal y. No appreciable pulmonary vascular engorgement. The lordotic nature limits the evaluation of the yesika ng bases. No discrete infiltrate or effusion observed. Left-sided pacing device. Median sternotomy wi res. Humeral neck screws on the left. CONCLUSION: Limited study. No acute cardio pulmonary disease. Avinash Javier Jr., MD on December 29, 2017 at 2:27 Board Certified Radiologist. This report was verified electronically.
[2017-12-29 02:34] LABS: AUTOMATED NEUTROPHIL # 9.3 TH/MM3 (1.8-7.7); BASOPHIL # 0.1 TH/MM3 (0-0.2); BASOPHIL % 0.4 % (0.0-2.0); EOSINOPHIL # 0.2 TH/MM3 (0-0.4); EOSINOPHIL % 1.2 % (0.0-4.0); HEMATOCRIT 31.6 % (39.0-51.0); HEMOGLOBIN 10.5 GM/DL (13.0-17.0); LYMPH % 17.5 % (9.0-44.0); LYMPHOCYTE # 2.3 TH/MM3 (1.0-4.8); MEAN CELL VOLUME 95.8 FL (80.0-100.0); MEAN CORPUSCULAR HEMOGLOBIN 31.9 PG (27.0-34.0); MEAN CORPUSCULAR HGB CONC 33.3 % (32.0-36.0); MONO % 11.1 % (0.0-8.0); MONOCYTE # 1.5 TH/MM3 (0-0.9); NEUT % 69.8 % (16.0-70.0); PLATELET COUNT 253 TH/MM3 (150-450); RED CELL DISTRIBUTION WIDTH 15.9 % (11.6-17.2); WHITE BLOOD COUNT 13.3 TH/MM3 (4.0-11.0)
[2017-12-29 02:50] LABS: TROPONIN I 0.04 NG/ML (0.02-0.05)
[2017-12-29 02:55] LABS: BICARBONATE 29.4 MEQ/L (21.0-32.0); CALCIUM 8.3 MG/DL (8.5-10.1); CREATININE 1.12 MG/DL (0.60-1.30)
[2017-12-29 03:13] VITALS: BP 145/65; PULSE 53; RESP 18; O2SAT 100
[2017-12-29 04:20] LABS: BILIRUBIN, URINE NEG (NEG); BLOOD, URINE NEG (NEG); GLUCOSE,URINE NEG (NEG); HYALINE CAST, URINE 1 /lpf (RARE); KETONE, URINE NEG (NEG); MUCUS URINE FEW /lpf (OCC); NITRITE,URINE NEG (NEG); SQUAMOUS EPITHELIAL CELL URINE <1 /hpf (0-5); URINE COLOR YELLOW (YELLW/STRAW); URINE LEUKOCYTE ESTERASE NEG (NEG)
[2017-12-29 05:04] VITALS: BP 155/66; PULSE 62; RESP 18; O2SAT 100
--- NOTE | 2017-12-29 18:40 | EKG ---
Date Performed: 12/29/2017 Time Performed: 03:59:00 PTAGE: 72 years EKG: SINUS BRADYCARDIA MARKED LEFT AXIS DEVIATION ANTEROSEPTAL MYOCARDIAL INFARCTION ABNORMAL EC G PREVIOUS TRACING : 12/18/2017 18.28 Since the prior tracing, there has been no significant pina DOCTOR: Nicol Zuniga Interpretating Date/Time 12/29/2017 18:38:09
== END 2017-12-29 05:44 | disposition home or self-care (01) ==
LOC: NEPC 00:15
DX: R06.02 Shortness of breath (principal); I11.0 Hypertensive heart disease with heart failure; I50.9 Heart failure, unspecified; F41.9 Anxiety disorder, unspecified; F31.9 Bipolar disorder, unspecified; E78.5 Hyperlipidemia, unspecified; I25.10 Atherosclerotic heart disease of native coronary artery without angina pectoris; Z95.1 Presence of aortocoronary bypass graft; Z95.5 Presence of coronary angioplasty implant and graft
CPT/HCPCS: 71045; 80048; 81001; 84484; 85025; 93005; 99285

== ENCOUNTER 2017-12-31 20:04 | Emergency (ER) | payer MEDICARE, MEDICAID ==
[~2017-12-31] VITALS: Ht 170.2 cm; Wt 75.0 kg
[~2017-12-31 20:04] MED LIST changes: +SIMV20TA PO
[2017-12-31 20:15] VITALS: BP 144/67; PULSE 70; RESP 20; TEMP 98.2; O2SAT 99
--- NOTE | 2017-12-31 20:37 | PD ---
HPI Chief Complaint: Complaint Time Seen by Provider: 20:25 Travel History International Travel<30 days: No Contact w/Intl Traveler<30days: No Traveled to known affect area: No History of Present Illness HPI Patient is a 72-year-old male presents emergency department for evaluation of frequency urination and painful on urination. P patient has complex medical history, he had stenting of his heart both in October and in December of this year. He was also found to have acute cholecystitis was admitted to the hospital and was had a biliary drain placed in late November which was dislodged once and successfully replaced. Patient states that ever since discharge from the hospital is had some problems with urinary frequency and has had to wear diapers. States is also been having some burning in urination. Initially calm and cooperative he denies any shortness of breath abdominal pain nausea vomiting diarrhea. PFSH Past Medical History Hx Anticoagulant Therapy: Yes Blood Disorders: No Anxiety: Yes Depression: Yes Heart Rhythm Problems: Yes Cancer: No Cardiovascular Problems: Yes High Cholesterol: Yes Chemotherapy: No Chest Pain: Yes Congestive Heart Failure: Yes (WITH THIS ADMISSION ) Diminished Hearing: No Endocrine: No Genitourinary: Yes Hypertension: Yes Immune Disorder: No Implanted Vascular Access Dvce: Yes Musculoskeletal: Yes (NEUROPATHY IN LOWER LEGS) Neurologic: No Psychiatric: Yes (BIPOLAR ) Reproductive: No Respiratory: Yes Radiation Therapy: No Tetanus Vaccination: Unknown Influenza Vaccination: Yes ?: Not Past Surgical History Body Medical Devices: STENT, PACEMAKER, SCREWS IN LEFT SHOULDER Cardiac Surgery: Yes (stent june 05, bypass surgery ) Pacemaker: Yes Other Surgery: Yes Social History Alcohol Use: No Tobacco Use: No Substance Use: No Allergies-Medications (Allergen,Severity, Reaction): Coded Allergies: No Known Allergies (Verified Allergy, Unknown, 12/29/17) Reported Meds & Prescriptions Reported Meds & Active Scripts Active Augmentin (Amoxicillin-Clavulanate) 875-125 Mg Tab 1 Tab PO BID Prednisone (21) 10 mg tab Dose Pack (Prednisone) 10 Mg Pack 10 Mg PO DIRECTED Norvasc (Amlodipine Besylate) 5 Mg Tab 5 Mg PO DAILY Lisinopril 10 Mg Tab 10 Mg PO DAILY [place] (Hydrocodone-Acetaminophen) 5 Mg-325 Mg Tab 1 Tab PO Q6H PRN Furosemide 40 Mg Tab 40 Mg PO DAILY Seroquel (Quetiapine Fumarate) 25 Mg Tab 25 Mg PO BID@09,12 Tgt Aspirin (Aspirin) 81 Mg Chw 81 Mg PO DAILY Aldactone (Spironolactone) 25 Mg Tab 25 Mg PO BID@,18 Potassium Chloride ER (Potassium Chloride) 20 Meq Tab 20 Meq PO DAILY Eliquis (Apixaban) 5 Mg Tab 5 Mg PO BID Coreg (Carvedilol) 12.5 Mg Tab 12.5 Mg PO DAILY Atorvastatin (Atorvastatin Calcium) 40 Mg Tab 40 Mg PO HS Reported Simvastatin 20 Mg Tab 20 Mg PO DAILY Multiple Vitamin 1 Tab 1 Tab PO DAILY Divalproex DR (Divalproex Sodium) 500 Mg Tabdr 500 Mg PO TID Duloxetine DR (Duloxetine HCl) 60 Mg Capdr 60 Mg PO DAILY Tamsulosin (Tamsulosin HCl) 0.4 Mg Cap 0.8 Mg PO HS Plavix (Clopidogrel Bisulfate) 75 Mg Tab 75 Mg PO DAILY Amiodarone (Amiodarone HCl) 200 Mg Tab 200 Mg PO DAILY Gabapentin 300 Mg Cap 300 Mg PO TID Tramadol (Tramadol HCl) 50 Mg Tab 50 Mg PO Q6H PRN Review of Systems Except as stated in HPI: all other systems reviewed are Neg Physical Exam Narrative GENERAL: Well-developed well-nourished, cooperative in no obvious distress. SKIN: Focused skin assessment warm/dry. HEAD: Atraumatic. Normocephalic. EYES: Pupils equal and round. No scleral icterus. No injection or drainage. ENT: No nasal bleeding or discharge. Mucous membranes pink and moist. NECK: Trachea midline. No JVD. CARDIOVASCULAR: Regular rate and rhythm. No murmur appreciated. RESPIRATORY: No accessory muscle use. Clear to auscultation. Breath sounds equal bilaterally. GASTROINTESTINAL: Abdomen soft, non-tender, nondistended. Hepatic and splenic margins not palpable. Soft and nontender, right-sided biliary drain draining green bile. No obvious site infection. MUSCULOSKELETAL: No obvious deformities. No clubbing. No cyanosis. No edema. NEUROLOGICAL: Awake and alert. No obvious cranial nerve deficits. Motor grossly within normal limits. Normal speech. PSYCHIATRIC: Appropriate mood and affect; insight and judgment normal. Data Data Last Documented VS Vital Signs Date Time Temp Pulse Resp B/P (MAP) Pulse Ox O2 Delivery O2 Flow Rate FiO2 01/01/18 00:25 67 18 117/64 (81) 99 3/14/18 22:32 Room Air 12/31/17 20:15 98.2 Orders Orders Ed Poc Ultrasound (12/31/17 ) Urinalysis - C+S If Indicated (12/31/17 20:26) Ed Discharge Order (12/31/17 22:19) Ct Abdomen W/O Iv Contrast (12/31/17 ) Labs Laboratory Tests Test 12/31/17 20:30 Urine Color YELLOW Urine Turbidity CLEAR Urine pH 5.5 Urine Specific [place] 1.020 Urine Protein TRACE mg/dL Urine Glucose (UA) NEG mg/dL Urine Ketones NEG mg/dL Urine Occult Blood NEG Urine Nitrite NEG Urine Bilirubin NEG Urine Urobilinogen 0.2 MG/DL Urine Leukocyte Esterase NEG Urine Squamous Epithelial Cells 0-5 /hpf Microscopic Urinalysis Comment CULT NOT INDICATED MDM Medical Decision Making Medical Screen Exam Complete: Yes Emergency Medical Condition: Yes Differential Diagnosis UTI, urinary retention, status post biliary drainage. Narrative Course Patient room to the emergency department, UA was completely within normal limits , on revisit he is calm and he is reading novel, at this point the patient states he does not feel like he can go home because he is always covered in urine because he pees himself constantly. I discussed that there is no admission diagnosis for him and he was seen 2 days ago for very similar complaints and was discharged at that time. He was seen by case management and he did not have an admission diagnosis for nursing facility. I offered for him to speak with case management again unfortunately at this late hour there is no case management available, charge nurse spoke with the patient's wrapper caser over the main hospital who is familiar with this case who reiterates that he does not have admission criteria. Charge nurse went to speak with the patient and deliver the news that he would be discharged home, I then heard the patient screaming of the charge nurse and went to see what was going on the patient was actually attempting to self remove his biliary drain stating he "does not care if he dies". After discussion with him he is very angry and has very passive suicidal comments. Is unclear how much of the biliary drain he is actually removed and I have ordered a CAT scan of his abdomen to determine how far it has been removed and will reassess him afterwards. The patient has really contracted for self-preservation and does not meet [place] act criteria. He is manipulative and unfortunately he has no placement opportunities for rehab facility, he is already had arrangements made for home health care and has not had any follow-up after his procedures peer. I discussed with him that I do not think it is ling to try and self remove his biliary drainage and I do not remove them myself. CT scan shows that it is still in good place there is no pulmonary edema and no evidence of acute CHF on his physical exam. at this time he is stable medically for discharge. From a psychiatric standpoint I do not perceive him to be a threat to himself, I think the patient has the right to remove any drainage device in him but I recommended that he not do that and let either Dr. Martinez or GI doctor do that for him and I have given him the referral information. Diagnosis Primary Impression: Urinary frequency Referrals: Alvarez Livingston MD, Michael A. MD Patient Assistance Program Disposition: 01 DISCHARGE HOME Condition: Stable Behzad Marcus MD Dec 31, 2017 20:37
[2017-12-31 20:41] LABS: BILIRUBIN, URINE NEG (NEG); BLOOD, URINE NEG (NEG); GLUCOSE,URINE NEG (NEG); KETONE, URINE NEG (NEG); NITRITE,URINE NEG (NEG); PH, URINE 5.5 (5.0-8.5); URINE COLOR YELLOW (YELLW/STRAW); URINE LEUKOCYTE ESTERASE NEG (NEG)
[2017-12-31 20:51] LABS: SQUAMOUS EPITHELIAL CELL URINE 0-5 /hpf (0-5)
[2017-12-31 21:19] VITALS: BP 145/69; PULSE 63; RESP 18; O2SAT 96
[2017-12-31 22:32] VITALS: BP 144/65; PULSE 56; RESP 16; O2SAT 98
--- NOTE | 2017-12-31 23:49 | RADRPT ---
EXAM DATE/TIME: 12/31/2017 23:21 [facility] COMPARISON: No previous studies available for comparison. INDICATIONS : Patient tried to pull biliary drain out. Evaluate position. ORAL CONTRAST: Partial prescribed oral contrast ingested. RADIATION DOSE: 18.83 CTDIvol (mGy) MEDICAL HISTORY : Hypertension. Cholecystitis. SURGICAL HISTORY : Biliary drain. ENCOUNTER: Initial ACUITY: 1 day PAIN SCALE: 0/10 LOCATION: abdomen TECHNIQUE: Volumetric scanning of the abdomen was performed. Using automated exposure control and adjustment of the mA and/or kV according to patient size, radiation dose was kept as low as reasonably achievable to obtain optimal diagnostic quality images. DICOM format image data is available electronically for review and comparison. FINDINGS: LOWER LUNGS: The visualized lower lungs are clear. LIVER: Homogeneous density without lesion. The percutaneous cholecystostomy tube is coiled within the fundus of the gallbladder. The gallbladder is largely decompressed. No pericholecystic fluid. There is no d ilation of the biliary tree. Small calcified gallstones. SPLEEN: Normal size without lesion. PANCREAS: Within normal limits. KIDNEYS: Normal in size and shape. There is no mass or hydronephrosis. 2 mm nonobstructing right renal stone. ADRENAL GLANDS: Within normal limits. AORTA/RETROPERITONEAL: Previous aortobifemoral bypass. No retroperitoneal adenopathy. BOWEL/MESENTERY: The stomach and visualized small and large bowel demonstrate no abnormality. Scattered colonic divert iculi. MUSCULOSKELETAL: Within normal limits for patient age. 3 small ventral hernias are seen cephalad to the umbilicus. One of the hernias contains the transvers e colon. CONCLUSION: 1. Percutaneous cholecystostomy tube in good position. The gallbladder is decompressed and small calc ified stones are noted. 2. 2 mm nonobstructing right renal stone. 3. 3 ventral hernias. 4. Prior aortobifemoral bypass. Avinash Javier Jr., MD on December 31, 2017 at 23:44 Board Certified Radiologist. This report was verified electronically.
[2018-01-01 00:25] VITALS: BP 117/64
== END 2018-01-01 00:27 | disposition home or self-care (01) ==
LOC: PHED 20:04
DX: R35.0 Frequency of micturition (principal); E78.00 Pure hypercholesterolemia, unspecified; I11.0 Hypertensive heart disease with heart failure; I50.9 Heart failure, unspecified
CPT/HCPCS: 74150; 81001; 99284

== ENCOUNTER 2018-01-02 15:23 | Inpatient (IN) | payer MEDICARE, MEDICAID ==
[2018-01-02] VITALS (8 sets, daily range): BP systolic 147–181; BP diastolic 67–74; PULSE 61–82; RESP 14–16; TEMP 98–98.3; O2SAT 96–100
[~2018-01-02] VITALS: Ht 167.6 cm; Wt 73.8 kg
--- NOTE | 2018-01-02 16:01 | PD ---
HPI Chief Complaint: Cardiac Complaint Time Seen by Provider: 15:27 Travel History International Travel<30 days: No Contact w/Intl Traveler<30days: No Traveled to known affect area: No History of Present Illness HPI The patient is a 72-year-old male who presents to the emergency department via EMS after he experienced shortness of breath at home followed by an AICD shock. The patient states he has had previous open heart surgery and then had an AICD placed, in [place], [place]. The patient states he became short of breath at home earlier today, slightly lightheaded, when the AICD fired. He denies any previous AICD firings. He denied any chest pain, states his shortness of breath resolved after the AICD fired. He states the AICD is [employer]. He denies any chest pain, nausea, vomiting, abdominal pain, or diaphoresis. Symptoms are moderate. He did recently have his gallbladder removed, had a biliary drain placed which is still in place. He cannot recall the name of the surgeon who placed the drain. Symptoms are moderate. PFSH Past Medical History Hx Anticoagulant Therapy: Yes Blood Disorders: No Anxiety: Yes Depression: Yes Heart Rhythm Problems: Yes Cancer: No Cardiovascular Problems: Yes High Cholesterol: Yes Chemotherapy: No Chest Pain: Yes Congestive Heart Failure: Yes (WITH THIS ADMISSION ) Diminished Hearing: No Endocrine: No Genitourinary: Yes Hypertension: Yes Immune Disorder: No Implanted Vascular Access Dvce: Yes Musculoskeletal: Yes (NEUROPATHY IN LOWER LEGS) Neurologic: No Psychiatric: Yes (BIPOLAR ) Reproductive: No Respiratory: Yes Radiation Therapy: No Tetanus Vaccination: Unknown Influenza Vaccination: Yes Past Surgical History Body Medical Devices: STENT, PACEMAKER, SCREWS IN LEFT SHOULDER Cardiac Surgery: Yes (STENT, CABG, PACEMAKER/AICD) Pacemaker: Yes Other Surgery: Yes Social History Alcohol Use: No Tobacco Use: No Substance Use: No Allergies-Medications (Allergen,Severity, Reaction): Coded Allergies: No Known Allergies (Verified Allergy, Unknown, 01/02/18) Reported Meds & Prescriptions Reported Meds & Active Scripts Active Augmentin (Amoxicillin-Clavulanate) 875-125 Mg Tab 1 Tab PO BID Prednisone (21) 10 mg tab Dose Pack (Prednisone) 10 Mg Pack 10 Mg PO DIRECTED Norvasc (Amlodipine Besylate) 5 Mg Tab 5 Mg PO DAILY Lisinopril 10 Mg Tab 10 Mg PO DAILY [place] (Hydrocodone-Acetaminophen) 5 Mg-325 Mg Tab 1 Tab PO Q6H PRN Furosemide 40 Mg Tab 40 Mg PO DAILY Seroquel (Quetiapine Fumarate) 25 Mg Tab 25 Mg PO BID@09,12 Tgt Aspirin (Aspirin) 81 Mg Chw 81 Mg PO DAILY Aldactone (Spironolactone) 25 Mg Tab 25 Mg PO BID@09,18 Potassium Chloride ER (Potassium Chloride) 20 Meq Tab 20 Meq PO DAILY Eliquis (Apixaban) 5 Mg Tab 5 Mg PO BID Coreg (Carvedilol) 12.5 Mg Tab 12.5 Mg PO DAILY Atorvastatin (Atorvastatin Calcium) 40 Mg Tab 40 Mg PO HS Reported Simvastatin 20 Mg Tab 20 Mg PO DAILY Multiple Vitamin 1 Tab 1 Tab PO DAILY Divalproex DR (Divalproex Sodium) 500 Mg Tabdr 500 Mg PO TID Duloxetine DR (Duloxetine HCl) 60 Mg Capdr 60 Mg PO DAILY Tamsulosin (Tamsulosin HCl) 0.4 Mg Cap 0.8 Mg PO HS Amiodarone (Amiodarone HCl) 200 Mg Tab 200 Mg PO DAILY Gabapentin 300 Mg Cap 300 Mg PO TID Tramadol (Tramadol HCl) 50 Mg Tab 50 Mg PO Q6H PRN Review of Systems Except as stated in HPI: all other systems reviewed are Neg HENT: Positive: Lightheadedness Cardiovascular: Positive: Other (AICD fired), No: Chest Pain or Discomfort Respiratory: Positive: Shortness of Breath Gastrointestinal: Positive: Other (recent gallbladder surgery), No: Nausea, Vomiting, Abdominal Pain Musculoskeletal: No: Weakness Neurologic: Positive: Dizziness Psychiatric: No: Substance Abuse Physical Exam Narrative GENERAL: Awake, alert, pleasant 72-year-old male who appears his stated age is in no acute respiratory distress. SKIN: Focused skin assessment warm/dry. HEAD: Atraumatic. Normocephalic. EYES: Pupils equal and round. No scleral icterus. No injection or drainage. ENT: Dry blood in the right near. NECK: Trachea midline. No JVD. CARDIOVASCULAR: Well-healed midline scar. AICD in place left chest wall. Heart rate in the 80s. RESPIRATORY: No accessory muscle use. Clear to auscultation. Breath sounds equal bilaterally. GASTROINTESTINAL: Abdomen soft, no rebound tenderness. MUSCULOSKELETAL: No obvious deformities. No clubbing. No cyanosis. No edema. NEUROLOGICAL: Awake and alert. No obvious cranial nerve deficits. Motor grossly within normal limits. Normal speech. PSYCHIATRIC: Appropriate mood and affect; insight and judgment normal. Data Data Last Documented VS Vital Signs Date Time Temp Pulse Resp B/P (MAP) Pulse Ox O2 Delivery O2 Flow Rate FiO2 01/02/18 18:15 61 16 152/71 (98) 96 Room Air 01/02/18 15:26 98.3 Orders Orders Electrocardiogram (01/02/18 16:) B-Type Natriuretic Peptide (01/02/18 16:) Ckmb (Isoenzyme) Profile (01/02/18 16:) Complete Blood Count With Diff (01/02/18 16:) Comprehensive Metabolic Panel (01/02/18 16:) Magnesium (Mg) (01/02/18 16:) Prothrombin Time / Inr (Pt) (01/02/18 16:) Act Partial Throm Time (Ptt) (01/02/18 16:) Troponin I (01/02/18 16:) Ecg Monitoring (01/02/18 16:) Bilateral Bp Monitoring (01/02/18 16:) Iv Access Insert/Monitor (01/02/18 16:) Oximetry (01/02/18 16:) Oxygen Administration (01/02/18 16:) Aspirin Chew (Aspirin Chew) (01/02/18 16:15) Sodium Chloride 0.9% Flush (Ns Flush) (01/02/18 16:15) Chest, Pa & Lat (01/02/18 16:) Dextrose 5% In Wate... W/Amiodarone Inj (01/02/18 18:31) Sodium Chloride 0.9% Flush (Ns Flush) (01/02/18 18:30) Labs Laboratory Tests Test 01/02/18 15:30 White Blood Count 10.4 TH/MM3 Red Blood Count 3.32 MIL/MM3 Hemoglobin 10.4 GM/DL Hematocrit 31.9 % Mean Corpuscular Volume 96.2 FL Mean Corpuscular Hemoglobin 31.5 PG Mean Corpuscular Hemoglobin Concent 32.7 % Red Cell Distribution Width 15.7 % Platelet Count 264 TH/MM3 Mean Platelet Volume 7.9 FL Neutrophils (%) (Auto) 65.7 % Lymphocytes (%) (Auto) 21.7 % Monocytes (%) (Auto) 10.7 % Eosinophils (%) (Auto) 1.4 % Basophils (%) (Auto) 0.5 % Neutrophils # (Auto) 6.8 TH/MM3 Lymphocytes # (Auto) 2.3 TH/MM3 Monocytes # (Auto) 1.1 TH/MM3 Eosinophils # (Auto) 0.1 TH/MM3 Basophils # (Auto) 0.1 TH/MM3 CBC Comment DIFF FINAL Differential Comment Prothrombin Time 10.0 SEC Prothromb Time International Ratio 1.0 RATIO Activated Partial Thromboplast Time 21.9 SEC Blood Urea Nitrogen 26 MG/DL Creatinine 1.23 MG/DL Random Glucose 162 MG/DL Total Protein 7.4 GM/DL Albumin 2.6 GM/DL Calcium Level 8.5 MG/DL Magnesium Level 2.0 MG/DL Alkaline Phosphatase 53 U/L Aspartate Amino Transf (AST/SGOT) 20 U/L Alanine Aminotransferase (ALT/SGPT) 27 U/L Total Bilirubin 0.2 MG/DL Sodium Level 146 MEQ/L Potassium Level 4.2 MEQ/L Chloride Level 113 MEQ/L Carbon Dioxide Level 22.6 MEQ/L Anion Gap 10 MEQ/L Estimat Glomerular Filtration Rate 58 ML/MIN Total Creatine Kinase 46 U/L Troponin I 0.02 NG/ML B-Type Natriuretic Peptide 113 PG/ML MDM Medical Decision Making Medical Screen Exam Complete: Yes Emergency Medical Condition: Yes Medical Record Reviewed: Yes Interpretation(s) EKG reveals normal sinus rhythm with a rate 84. Intraventricular conduction delay noted. Laboratory Tests Test 01/02/18 15:30 White Blood Count 10.4 TH/MM3 Red Blood Count 3.32 MIL/MM3 Hemoglobin 10.4 GM/DL Hematocrit 31.9 % Mean Corpuscular Volume 96.2 FL Mean Corpuscular Hemoglobin 31.5 PG Mean Corpuscular Hemoglobin Concent 32.7 % Red Cell Distribution Width 15.7 % Platelet Count 264 TH/MM3 Mean Platelet Volume 7.9 FL Neutrophils (%) (Auto) 65.7 % Lymphocytes (%) (Auto) 21.7 % Monocytes (%) (Auto) 10.7 % Eosinophils (%) (Auto) 1.4 % Basophils (%) (Auto) 0.5 % Neutrophils # (Auto) 6.8 TH/MM3 Lymphocytes # (Auto) 2.3 TH/MM3 Monocytes # (Auto) 1.1 TH/MM3 Eosinophils # (Auto) 0.1 TH/MM3 Basophils # (Auto) 0.1 TH/MM3 CBC Comment DIFF FINAL Differential Comment Prothrombin Time 10.0 SEC Prothromb Time International Ratio 1.0 RATIO Activated Partial Thromboplast Time 21.9 SEC Blood Urea Nitrogen 26 MG/DL Creatinine 1.23 MG/DL Random Glucose 162 MG/DL Total Protein 7.4 GM/DL Albumin 2.6 GM/DL Calcium Level 8.5 MG/DL Magnesium Level 2.0 MG/DL Alkaline Phosphatase 53 U/L Aspartate Amino Transf (AST/SGOT) 20 U/L Alanine Aminotransferase (ALT/SGPT) 27 U/L Total Bilirubin 0.2 MG/DL Sodium Level 146 MEQ/L Potassium Level 4.2 MEQ/L Chloride Level 113 MEQ/L Carbon Dioxide Level 22.6 MEQ/L Anion Gap 10 MEQ/L Estimat Glomerular Filtration Rate 58 ML/MIN Total Creatine Kinase 46 U/L Troponin I 0.02 NG/ML B-Type Natriuretic Peptide 113 PG/ML Last Impressions Chest X-Ray 01/02/18 1601 Signed Impressions: Service Date/Time: Tuesday, January 02, 2018 16:47 - CONCLUSION: 1. No acute cardiopulmonary findings. 2. Old, healed posterior rib fractures bilaterally. 3. Appearance of the chest is similar compared to prior dated 12/29/17 Sandeep Allison MD Differential Diagnosis Differential diagnoses includes arrhythmia, ventricular arrhythmia, SVT, sinus tachycardia, atrial flutter, atrial fibrillation, electrolyte abnormality, ACS, cardiomyopathy. Narrative Course IV was established, labs are drawn and sent, and the patient was placed on cardiac telemetry monitoring and continuous pulse oximetry monitoring. EKG was ordered and interpreted. [employer] was called to evaluate the patient' s AICD. Chest x-ray was obtained. The patient received aspirin. Chest x-ray unremarkable. Electrolytes unremarkable. BUN is slightly elevated. However, [employer] evaluated the patient's AICD, the patient is had multiple episodes of ventricular tachycardia today, the longest one lasted approximately 8 minutes prior to AICD firing. The patient is already on amiodarone 200 mg daily. I discussed the patient with the on-call [employer] supervisor, Dr. Cheung, who recommended amiodarone drip. The patient will be admitted to CICU. Consult will be placed to cardiology. The patient is already anticoagulated with Eliquis. Critical Care Narrative Aggregate critical care time was 35 minutes. Time to perform other separately billable procedures was not included in the critical care time. My time did not include minutes spent treating any other patients simultaneously or on activities that did not directly contribute to the patient's treatment. The services I provided to this patient were to treat and/or prevent clinically significant deterioration that could result in: Arrhythmia, sudden . I provided critical care services requiring my management, as noted below: Chart data review, documentation time, medication orders and management, vital sign assessments/reviewing monitor data, ordering and reviewing lab tests, ordering and interpreting/reviewing x-rays and diagnostic studies, care of the patient and discussion of the patient with the admitting physicians. Physician Communication Physician Communication The on-call medical service was paged for admission. I discussed the patient with the residents who agreed with admission to Dr. Junior. Diagnosis Primary Impression: Ventricular tachycardia Admitting Information Admitting Physician Requests: Admit Condition: Stable Chung Lindsey MD Jan 02, 2018 16:01
[2018-01-02 16:15] LABS: AUTOMATED NEUTROPHIL # 6.8 TH/MM3 (1.8-7.7); BASOPHIL # 0.1 TH/MM3 (0-0.2); BASOPHIL % 0.5 % (0.0-2.0); EOSINOPHIL # 0.1 TH/MM3 (0-0.4); EOSINOPHIL % 1.4 % (0.0-4.0); HEMATOCRIT 31.9 % (39.0-51.0); HEMOGLOBIN 10.4 GM/DL (13.0-17.0); LYMPH % 21.7 % (9.0-44.0); LYMPHOCYTE # 2.3 TH/MM3 (1.0-4.8); MEAN CELL VOLUME 96.2 FL (80.0-100.0); MEAN CORPUSCULAR HEMOGLOBIN 31.5 PG (27.0-34.0); MEAN CORPUSCULAR HGB CONC 32.7 % (32.0-36.0); MEAN PLATELET VOLUME 7.9 FL (7.0-11.0); MONO % 10.7 % (0.0-8.0); MONOCYTE # 1.1 TH/MM3 (0-0.9); NEUT % 65.7 % (16.0-70.0); PLATELET COUNT 264 TH/MM3 (150-450); RED BLOOD COUNT 3.32 MIL/MM3 (4.50-5.90); RED CELL DISTRIBUTION WIDTH 15.7 % (11.6-17.2); WHITE BLOOD COUNT 10.4 TH/MM3 (4.0-11.0)
[2018-01-02] MEDS ORDERED: ASPIRIN 81 MG CHEW TAB PO ONE (16:15)
[2018-01-02 16:40] LABS: ALBUMIN 2.6 GM/DL (3.4-5.0); ALT (GPT) 27 U/L (12-78); AST (GOT) 20 U/L (15-37); BICARBONATE 22.6 MEQ/L (21.0-32.0); BLOOD UREA NITROGEN 26 MG/DL (7-18); CALCIUM 8.5 MG/DL (8.5-10.1); CHLORIDE 113 MEQ/L (98-107); CREATININE 1.23 MG/DL (0.60-1.30); GLOMERULAR FILTRATION RATE 58 ML/MIN (>89); GLUCOSE,RANDOM 162 MG/DL (74-106); SODIUM (NA) 146 MEQ/L (136-145)
[2018-01-02 16:44] LABS: ALKALINE PHOSPHATASE 53 U/L (45-117); TOTAL BILIRUBIN ADULT 0.2 MG/DL (0.2-1.0); TOTAL PROTEIN 7.4 GM/DL (6.4-8.2); TROPONIN I 0.02 NG/ML (0.02-0.05)
--- NOTE | 2018-01-02 17:11 | RADRPT ---
EXAM DATE/TIME: 01/02/2018 16:47 [facility] COMPARISON: CHEST SINGLE AP, December 29, 2017, 2:13. INDICATIONS : Chest pain. MEDICAL HISTORY : Cardiovascular disease. Hypertension SURGICAL HISTORY : CABG. Pacemaker. ENCOUNTER: Initial ACUITY: 1 day PAIN SCORE: 5/10 LOCATION: Bilateral chest FINDINGS: The heart is at the upper limits of normal in size. There is a transvenous pacer in place. Patient is post median sternotomy. The lungs are clear. There are old, healed posterior rib fractures bilaterally. CONCLUSION: 1. No acute cardiopulmonary findings. 2. Old, healed posterior rib fractures bilaterally. 3. Appearance of the chest is similar compared to prior dated 12/29/17 Sandeep Allison MD on January 02, 2018 at 17:08 Board Certified Radiologist. This report was verified electronically.
[2018-01-02] MEDS ORDERED: SODIUM CHLORIDE 0.9% FLUSH 10 ML FLUSH IVF PRN (18:30)
[2018-01-02] MEDS ORDERED: AMIODARONE INJ 450 MG in DEXTROSE 5% IN WATE(EXCEL) INJ 241 ML IV SCH ×2 (18:31)
[2018-01-02] MEDS: AMIODARONE INJ 450 MG in SODIUM CHLOR 0.9% (EXCEL) INJ 241 ML IV SCH (19:13)
--- NOTE | 2018-01-02 19:24 | HHI.HP ---
HPI Service Family Medicine Primary Care Physician No Primary Care Physician Admission Diagnosis ventricular tachycardia with AICD firing Diagnoses: International Travel<30 Days: No Contact w/Intl Traveler<30days: No History of Present Illness Patient is a 72 year old male with history of CAD, recent cardiac stent, remote CABG, and recent gallbladder drain placement for cholecystitis. He presents via [facility] today for workup of AICD firing. He notes the AICD fired at around 2pm today. He was sitting, then stood, had shortness of breath acutely, then felt a "lightning bolt" in his chest. He could breath afterward, but felt "goofy" after that which he thinks is related to AICD. This was the first time ever having AICD fire in 3-4 years of having it. He hasn't been feeling well this week, went to hospital a few days ago for GI pain. Right now he is having pain in the "whole body" and has a headache which is reportedly severe, from lower neck to top of head since the AICD fired. He did not have a fall after it firing. He called 911 for evaluation. He has drain in the RUQ, which he notes that it was supposed to be removed today. The drain site hurts. Has nausea, no vomiting. No chest pain all day today or in the last week aside from AICD event. Had URI illness; over the last three weeks he had shortness of breath, got a shot of He is noted to have had biliary drain placed during recent hospitalization. On review of EMR, he was hospitalized December 12 through December 26 for acute cholecystitis management and was noted to have during the hospital stay acute respiratory failure and exacerbation of congestive heart failure. Chronic diseases include coronary artery disease, hypertension, and A. fib which were noted during that hospitalization. He did receive bare-metal stent placement on December 18 and IR placement of gallbladder tube with replacement. He was discharged with a 5 day course of Augmentin, prednisone 10 mg Dosepak, aspirin/ Plavix/Eliquis, Lasix, amlodipine, Seroquel, and Spironolactone which were initiated during that hospital stay and he was also continued on other home medications is noted in discharge documentation. Patient has limited understanding of his medical conditions and some history is obtained from the chart. Of note, patient states he has not taken his meds in the last 3-4 days because he had increased urinary frequency and dysuria and he thought his medications are playing a role. Review of Systems Constitutional: DENIES: Fever, Weight gain, Weight loss, Dizziness Eyes: COMPLAINS OF: Blurred vision, DENIES: Diplopia Ears, nose, mouth, throat: COMPLAINS OF: Epistaxis (x 1 after AICD fired), DENIES: Tinnitus, Hearing loss, Throat pain, Ear Pain Respiratory: DENIES: Cough, Wheezing Cardiovascular: COMPLAINS OF: Dyspnea on Exertion (chronic), DENIES: Chest pain , Palpitations, Syncope, PND, Lower Extremity Edema, Orthopnea, Claudication Gastrointestinal: COMPLAINS OF: Nausea, DENIES: Abdominal pain, Black stools, Bloody stools, Constipation, Diarrhea, Vomiting Genitourinary: COMPLAINS OF: Urinary frequency, Urinary incontinence, Dysuria, Nocturia, DENIES: Hematuria Musculoskeletal: COMPLAINS OF: Neck pain, DENIES: Joint pain Integumentary: DENIES: Pruritus, Rash Hematologic/lymphatic: COMPLAINS OF: Bruising (chronic), DENIES: Lymphadenopathy Neurologic: COMPLAINS OF: Headache, Poor Balance, DENIES: Seizures Psychiatric: DENIES: Anxiety, Depression, Hallucinations, Suicidal Ideation, Homicidal Ideation Past Family Social History Past Medical History CAD with AICD ?COPD (breathing difficulty) No reported history of DM, liver disease, kidney disease, or cancer ?Lower extremity neuropathy Past Surgical History CABG ~10 years ago AICD placement - [facility] Two stents after that Left shoulder surgery with screw plate Reported Medications Reported Meds & Active Scripts Active Augmentin (Amoxicillin-Clavulanate) 875-125 Mg Tab 1 Tab PO BID Prednisone (21) 10 mg tab Dose Pack (Prednisone) 10 Mg Pack 10 Mg PO DIRECTED Norvasc (Amlodipine Besylate) 5 Mg Tab 5 Mg PO DAILY Lisinopril 10 Mg Tab 10 Mg PO DAILY [place] (Hydrocodone-Acetaminophen) 5 Mg-325 Mg Tab 1 Tab PO Q6H PRN Furosemide 40 Mg Tab 40 Mg PO DAILY Seroquel (Quetiapine Fumarate) 25 Mg Tab 25 Mg PO BID@09,12 Tgt Aspirin (Aspirin) 81 Mg Chw 81 Mg PO DAILY Aldactone (Spironolactone) 25 Mg Tab 25 Mg PO BID@09,18 Potassium Chloride ER (Potassium Chloride) 20 Meq Tab 20 Meq PO DAILY Eliquis (Apixaban) 5 Mg Tab 5 Mg PO BID Coreg (Carvedilol) 12.5 Mg Tab 12.5 Mg PO DAILY Atorvastatin (Atorvastatin Calcium) 40 Mg Tab 40 Mg PO HS Reported Simvastatin 20 Mg Tab 20 Mg PO DAILY Multiple Vitamin 1 Tab 1 Tab PO DAILY Divalproex DR (Divalproex Sodium) 500 Mg Tabdr 500 Mg PO TID Duloxetine DR (Duloxetine HCl) 60 Mg Capdr 60 Mg PO DAILY Tamsulosin (Tamsulosin HCl) 0.4 Mg Cap 0.8 Mg PO HS Amiodarone (Amiodarone HCl) 200 Mg Tab 200 Mg PO DAILY Gabapentin 300 Mg Cap 300 Mg PO TID Tramadol (Tramadol HCl) 50 Mg Tab 50 Mg PO Q6H PRN Allergies: Coded Allergies: No Known Allergies (Verified Allergy, Unknown, 01/02/18) Active Ordered Medications Inpatient Medications Acetaminophen (Tylenol) 650 mg Q4H PRN PO TEMP > 100.4; Start 01/02/18 at 20:30 Acetaminophen/ Hydrocodone Bitart ([place]eno 5-325 Mg) 1 tab Q6H PRN PO PAIN Last administered on 01/02/18at 22:02; Start 01/02/18 at 20:15 Amiodarone HCl 450 mg/Sodium Chloride 250 ml @ 33 mls/hr Q7H35M IV Last administered on 01/02/18at 19:13; Start 01/02/18 at 18:45 Amlodipine Besylate (Norvasc) 5 mg DAILY PO ; Start 01/03/18 at 09:00 Apixaban (Eliquis) 5 mg BID PO Last administered on 01/02/18at 21:05; Start at 21:00 Aspirin (Aspirin Chew) 81 mg DAILY PO ; Start 01/03/18 at 09:00 Bisacodyl (Dulcolax Supp) 10 mg DAILY PRN RECTAL SEVERE CONSITIPATION; Start at 20:30 Carvedilol (Coreg) 12.5 mg DAILY PO ; Start 01/03/18 at 09:00 Divalproex Sodium (Depakote Dr) 500 mg TID PO ; Start 01/03/18 at 09:00 Duloxetine HCl (Cymbalta Dr) 60 mg DAILY PO ; Start 01/03/18 at 09:00 Enalaprilat (Vasotec Inj) 1.25 mg Q6H PRN IV PUSH SBP> OR = 180, DBP> OR = 100 ; Start 01/02/18 at 20:15 Furosemide (Lasix) 40 mg DAILY PO ; Start 01/03/18 at 09:00 Gabapentin (Neurontin) 300 mg TID PO ; Start 01/03/18 at 09:00 Lactulose (Lactulose Liq) 30 ml DAILY PRN PO SEVERE CONSITIPATION; Start at 20:30 Lisinopril (Prinivil) 10 mg DAILY PO ; Start 01/03/18 at 09:00 Magnesium Hydroxide (Milk Of Magnesia Liq) 30 ml Q12H PRN PO Mild constipation ; Start 01/02/18 at 20:30 Naloxone HCl (Narcan Inj) 0.4 mg UNSCH PRN IV PUSH SEE LABEL COMMENTS; Start at 20:30 Potassium Chloride (KCl) 20 meq DAILY PO ; Start 01/03/18 at 09:00 Quetiapine Fumarate (SEROquel) 25 mg BID@09,12 PO ; Start 01/03/18 at 09:00 Senna/Docusate Sodium (Lillian-Colace) 1 tab BID PO ; Start 01/02/18 at 21:00 Sennosides (Senokot) 17.2 mg Q12H PRN PO Moderate constipation; Start 01/02/18 at 20:30 Sodium Chloride (NS Flush) 2 ml UNSCH PRN IVF FLUSH AFTER USING IV ACCESS; Start 01/02/18 at 18:30 Spironolactone (Aldactone) 25 mg BID@,18 PO ; Start 01/03/18 at 09:00 Family History Patient does not have significant family history reported. Social History Lives with roommates in [facility] in [facility] : no Tobacco: remote Alcohol: remote Denies illicit drugs Physical Exam Vital Signs Vital Signs Date Time Temp Pulse Resp B/P (MAP) Pulse Ox O2 Delivery O2 Flow Rate FiO2 01/02/18 18:15 61 16 152/71 (98) 96 Room Air 01/02/18 16:28 16 98 Room Air 01/02/18 15:26 98.3 82 16 148/69 (95) 96 Physical Exam GENERAL: This is a well-nourished, well-developed male patient lying in bed in no apparent distress. SKIN: No rashes, ecchymoses or lesions. Cool and dry. HEAD: Atraumatic. Normocephalic. No temporal or scalp tenderness. EYES: Pupils equal round and reactive. Extraocular motions intact. No scleral icterus. No injection or drainage. ENT: Nose without bleeding or purulent discharge. Throat without erythema, tonsillar hypertrophy or exudate. Uvula midline. Airway patent. NECK: Trachea midline. No JVD or lymphadenopathy. Supple, nontender, no meningeal signs. CARDIOVASCULAR: Regular rate and rhythm without murmurs, gallops, or rubs. RESPIRATORY: Clear to auscultation. Breath sounds equal bilaterally. No wheezes , rales, or rhonchi. GASTROINTESTINAL: Gallbladder drain in place and right upper quadrant with skin showing no signs of infection or breakdown. Dressing is dated 12/25/17. The drainage bag has green fluid of less than 50 cc. Abdomen soft, obese. Normal bowel sounds. No hepato-splenomegaly, or palpable masses. No guarding. MUSCULOSKELETAL: Extremities without clubbing, cyanosis, or edema. No joint tenderness, effusion, or edema noted. No calf tenderness. NEUROLOGICAL: Awake and alert. Cranial nerves II through XII grossly intact. Motor and sensory grossly within normal limits. Five out of 5 muscle strength in UEs and LEs. Normal speech. Laboratory Laboratory Tests Test 01/02/18 15:30 White Blood Count 10.4 Red Blood Count 3.32 Hemoglobin 10.4 Hematocrit 31.9 Mean Corpuscular Volume 96.2 Mean Corpuscular Hemoglobin 31.5 Mean Corpuscular Hemoglobin Concent 32.7 Red Cell Distribution Width 15.7 Platelet Count 264 Mean Platelet Volume 7.9 Neutrophils (%) (Auto) 65.7 Lymphocytes (%) (Auto) 21.7 Monocytes (%) (Auto) 10.7 Eosinophils (%) (Auto) 1.4 Basophils (%) (Auto) 0.5 Neutrophils # (Auto) 6.8 Lymphocytes # (Auto) 2.3 Monocytes # (Auto) 1.1 Eosinophils # (Auto) 0.1 Basophils # (Auto) 0.1 CBC Comment DIFF FINAL Differential Comment Prothrombin Time 10.0 Prothromb Time International Ratio 1.0 Activated Partial Thromboplast Time 21.9 Blood Urea Nitrogen 26 Creatinine 1.23 Random Glucose 162 Total Protein 7.4 Albumin 2.6 Calcium Level 8.5 Magnesium Level 2.0 Alkaline Phosphatase 53 Aspartate Amino Transf (AST/SGOT) 20 Alanine Aminotransferase (ALT/SGPT) 27 Total Bilirubin 0.2 Sodium Level 146 Potassium Level 4.2 Chloride Level 113 Carbon Dioxide Level 22.6 Anion Gap 10 Estimat Glomerular Filtration Rate 58 Total Creatine Kinase 46 Troponin I 0.02 B-Type Natriuretic Peptide 113 Result Diagram: 01/02/18 1530 01/02/18 1530 Imaging Last Impressions Chest X-Ray 01/02/18 1601 Signed Impressions: Service Date/Time: Tuesday, January 02, 2018 16:47 - CONCLUSION: 1. No acute cardiopulmonary findings. 2. Old, healed posterior rib fractures bilaterally. 3. Appearance of the chest is similar compared to prior dated 12/29/17 Sandeep Allison MD Gall Bladder Ultrasound 01/02/18 0000 Signed Impressions: Service Date/Time: Tuesday, January 02, 2018 21:42 - CONCLUSION: 1. Gallbladder drain present. The gallbladder is decompressed. Thick wall again noted. 2. Decreased diameter of the common bile duct. MD Inge Wangi VTE Risk Assessment Caprini VTE Risk Assessment: Mod/High Risk (score >= 2) Caprini Risk Assessment Model Point Value = 1 Point Value = 2 Point Value = 3 Point Value = 5 Age 41-60 Minor surgery BMI > 25 kg/m2 Swollen legs Varicose veins or History of unexplained or recurrent spontaneous Oral contraceptives or hormone replacement Sepsis (< 1 month) Serious lung disease, including pneumonia (< 1 month) Abnormal pulmonary function Acute myocardial infarction Congestive heart failure (< 1 month) History of inflammatory bowel disease Medical patient at bed rest Age 61-74 Arthroscopic surgery Major open surgery (> 45 min) Laparoscopic surgery (> 45 min) Malignancy Confined to bed (> 72 hours) Immobilizing plaster cast Central venous access Age >= 75 History of VTE Family history of VTE Factor V Leiden Prothrombin [id number] Lupus anticoagulant Anticardiolipin antibodies Elevated serum homocysteine Heparin-induced thrombocytopenia Other congenital or acquired thrombophilia Stroke (< 1 month) Elective arthroplasty Hip, pelvis, or leg fracture Acute spinal cord injury (< 1 month) Prophylaxis Regimen Total Risk Factor Score Risk Level Prophylaxis Regimen 0-1 Low Early ambulation 2 Moderate Order ONE of the following: *Sequential Compression Device (SCD) *Heparin 5000 units SQ BID 3-4 Higher Order ONE of the following medications: *Heparin 5000 units SQ TID *Enoxaparin/Lovenox 40 mg SQ daily (WT < 150 kg, CrCl > 30 mL/min) *Enoxaparin/Lovenox 30 mg SQ daily (WT < 150 kg, CrCl > 10-29 mL/min) *Enoxaparin/Lovenox 30 mg SQ BID (WT < 150 kg, CrCl > 30 mL/min) AND/OR *Sequential Compression Device (SCD) 5 or more Highest Order ONE of the following medications: *Heparin 5000 units SQ TID (Preferred with Epidurals) *Enoxaparin/Lovenox 40 mg SQ daily (WT < 150 kg, CrCl > 30 mL/min) *Enoxaparin/Lovenox 30 mg SQ daily (WT < 150 kg, CrCl > 10-29 mL/min) *Enoxaparin/Lovenox 30 mg SQ BID (WT < 150 kg, CrCl > 30 mL/min) AND *Sequential Compression Device (SCD) Assessment and Plan Assessment and Plan 72-year-old male with complicated medical history including CAD with recent stent placement on aspirin/Plavix/Eliquis, CHF, atrial fibrillation, hyperlipidemia, hypertension, recent cholecystitis with indwelling drain who presents to the ED after AICD fired at home on 01/02. AICD interrogated in the ED and noted to have fired. Patient noted to have intermittent ventricular tachycardia which is currently asymptomatic, suspect etiology of arrhythmia is that patient has not been on any of his medications for 3-4 days. Patient to be admitted on amiodarone drip and he has discussed case with Dr. Cheung with routine consult for patient be evaluated tomorrow. He will be admitted to [facility] for close telemetry monitoring and for drip management. Other chronic diseases including hypertension will be managed. Expect 1-3 day hospital stay for further management of a dysrhythmia. Code Status Full code discussed with patient on 01/02 Discussed Condition With Case discussed with the ED physician and patient was seen Dr. Rooney. 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 Cheung per ED physician Restart home medications which include amiodarone 200 mg daily with goal to wean from amiodarone drip as tolerated Will obtain serial cardiac enzymes, EKG First EKG showed sinus rhythm (2) Acute on chronic systolic (congestive) heart failure ICD Codes: I50.23 - Acute on chronic systolic (congestive) heart failure Status: Chronic Plan: Patient has chronic heart failure with reduced EF with most recent EF documented October 2017 to be 25-30% with notable diffuse hypokinesis CXR today show no acute cardiopulmonary findings and no evidence of pulmonary congestion * Restart patient's home medications to include Spironolactone 25 mg twice daily , aspirin 81 mg daily, lisinopril 10 mg daily, carvedilol 12.5 mg daily. Patient also on amlodipine 5 mg daily, will restart. * Restart furosemide 40 mg daily with 20 mEq potassium daily * Daily weights (3) HTN (hypertension) ICD Codes: I10 - Essential (primary) hypertension Status: Chronic Plan: Patient noted to be hypertensive during ED evaluation. Patient has not been on his blood pressure medications for more than 3 days. Restart carvedilol , amlodipine, lisinopril, Spironolactone as noted above (4) Atrial fibrillation ICD Codes: I48.91 - Unspecified atrial fibrillation Status: Chronic Plan: Patient has chronic A. fib on Eliquis, aspirin, Plavix. We will continue these meds at this time. Monitor on telemetry (5) Cholecystitis ICD Codes: K81.9 - Cholecystitis, unspecified Status: Acute Plan: Patient with acute persistent cholecystitis for which patient had approximately 2 week hospital stay in late November, was just discharged on December 26. He was a poor surgical candidate given heart failure and cholecystitis was seriously monitored by imaging. IR initially placed percutaneous angela drain on 12/14 under fluoroscopy and ultrasound. IR replaced angela tube on 12/20 after patient pulled it out. He is noted to have been seen in the ED on 12/29 with vague symptoms and negative lab workup. He was noted to have been discharged on Augmentin 5 days but this course was completed. Lipase ordered today to survey function, will order abdominal ultrasound to survey gallbladder, will consult IR for possible drain removal if indicated. Patient may benefit from re-evaluation from general surgery but will hold off on consult at this time (6) Anemia ICD Codes: D64.9 - Anemia, unspecified Status: Acute Plan: Noted. Suspect this is related to chronic disease. MCV within normal limits. Will monitor, continue workup as indicated (7) Hyperlipidemia ICD Codes: E78.5 - Hyperlipidemia, unspecified Status: Chronic Plan: Patient was discharged on atorvastatin 40 mg nightly at time of last discharge, will continue this. Will discontinue simvastatin and patient's med rec (8) Seizure disorder ICD Codes: G40.909 - Epilepsy, unspecified, not intractable, without status epilepticus Status: Chronic Plan: Patient appears to have a chronic seizure disorder given he is on valproate. He is also on gabapentin but this may be for neuropathy. We will continue home dose valproate DR 500 mg PO 3 times daily and gabapentin 300 mg p.o. 3 times daily. Patient will be placed on seizure precaution and fall precautions, currently bedrest (9) Depression ICD Codes: F32.9 - Major depressive disorder, single episode, unspecified Status: Chronic Plan: Patient was a history of depression on Seroquel 25 mg twice daily and duloxetine 60 mg daily. Will continue these. Patient does deny any psychiatric history (10) Fluids/Electrolytes/Nutrition/Prophylaxis Status: Acute Plan: Fluids: tolerating PO Electrolytes: monitor and replete as needed Nutrition: heart-healthy diet DVT Prophylaxis: Early ambulation. On aspirin, Plavix, Eliquis. GI Prophylaxis: None indicated PRN anti-HTN: Vasotec 1.25 mg IV every 6 hours PRN for SBP > 180 and/or DBP > 100 Physician Certification 2 Midnight Certification Type: Admission for Inpatient Services Order for Inpatient Services The services are ordered in accordance with Medicare regulations or non- Medicare payer requirements, as applicable. In the case of services not specified as inpatient-only, they are appropriately provided as inpatient services in accordance with the 2-midnight benchmark. Estimated LOS (days): 3 days is the estimated time the patient will need to remain in the hospital, assuming treatment plan goals are met and no additional complications. Post-Hospital Plan: Not yet determined Problem Qualifiers (1) HTN (hypertension): Qualified Codes: I10 - Essential (primary) hypertension (2) Atrial fibrillation: Qualified Codes: I48.2 - Chronic atrial fibrillation (3) Anemia: Qualified Codes: D64.9 - Anemia, unspecified (4) Depression: Qualified Codes: F33.42 - Major depressive disorder, recurrent, in full remission Pily Walker MD Jan 02, 2018 19:24
--- NOTE | 2018-01-02 19:26 | PD ---
Data Data Last Documented VS Vital Signs Date Time Temp Pulse Resp B/P (MAP) Pulse Ox O2 Delivery O2 Flow Rate FiO2 01/02/18 18:15 61 16 152/71 (98) 96 Room Air 01/02/18 15:26 98.3 Orders Orders Electrocardiogram (01/02/18 16:01) B-Type Natriuretic Peptide (01/02/18 16:01) Ckmb (Isoenzyme) Profile (01/02/18 16:) Complete Blood Count With Diff (01/02/18 16:) Comprehensive Metabolic Panel (01/02/18 16:) Magnesium (Mg) (01/02/18 16:01) Prothrombin Time / Inr (Pt) (01/02/18 16:) Act Partial Throm Time (Ptt) (01/02/18 16:) Troponin I (01/02/18 16:) Ecg Monitoring (01/02/18 16:01) Bilateral Bp Monitoring (01/02/18 16:) Iv Access Insert/Monitor (01/02/18 16:) Oximetry (01/02/18 16:01) Oxygen Administration (01/02/18 16:01) Aspirin Chew (Aspirin Chew) (01/02/18 16:15) Sodium Chloride 0.9% Flush (Ns Flush) (01/02/18 16:15) Chest, Pa & Lat (01/02/18 16:01) Sodium Chloride 0.9% Flush (Ns Flush) (01/02/18 18:30) Admit Order (Ed Use Only) (01/02/18 18:31) Labs Laboratory Tests Test 01/02/18 15:30 White Blood Count 10.4 TH/MM3 Red Blood Count 3.32 MIL/MM3 Hemoglobin 10.4 GM/DL Hematocrit 31.9 % Mean Corpuscular Volume 96.2 FL Mean Corpuscular Hemoglobin 31.5 PG Mean Corpuscular Hemoglobin Concent 32.7 % Red Cell Distribution Width 15.7 % Platelet Count 264 TH/MM3 Mean Platelet Volume 7.9 FL Neutrophils (%) (Auto) 65.7 % Lymphocytes (%) (Auto) 21.7 % Monocytes (%) (Auto) 10.7 % Eosinophils (%) (Auto) 1.4 % Basophils (%) (Auto) 0.5 % Neutrophils # (Auto) 6.8 TH/MM3 Lymphocytes # (Auto) 2.3 TH/MM3 Monocytes # (Auto) 1.1 TH/MM3 Eosinophils # (Auto) 0.1 TH/MM3 Basophils # (Auto) 0.1 TH/MM3 CBC Comment DIFF FINAL Differential Comment Prothrombin Time 10.0 SEC Prothromb Time International Ratio 1.0 RATIO Activated Partial Thromboplast Time 21.9 SEC Blood Urea Nitrogen 26 MG/DL Creatinine 1.23 MG/DL Random Glucose 162 MG/DL Total Protein 7.4 GM/DL Albumin 2.6 GM/DL Calcium Level 8.5 MG/DL Magnesium Level 2.0 MG/DL Alkaline Phosphatase 53 U/L Aspartate Amino Transf (AST/SGOT) 20 U/L Alanine Aminotransferase (ALT/SGPT) 27 U/L Total Bilirubin 0.2 MG/DL Sodium Level 146 MEQ/L Potassium Level 4.2 MEQ/L Chloride Level 113 MEQ/L Carbon Dioxide Level 22.6 MEQ/L Anion Gap 10 MEQ/L Estimat Glomerular Filtration Rate 58 ML/MIN Total Creatine Kinase 46 U/L Troponin I 0.02 NG/ML B-Type Natriuretic Peptide 113 PG/ML MDM Supervised Visit with BETTY: No Narrative Course D/W Dr. Hart. She will see patient as she is covering for Triggit. Diagnosis Primary Impression: Ventricular tachycardia Condition: Stable Behzad Marcus MD Jan 02, 2018 19:26
[2018-01-02] MEDS ORDERED: ENALAPRILAT 1.25 MG/ML VIAL IV PUSH PRN (20:15)
[2018-01-02] MEDS ORDERED: LACTULOSE SYRUP 20 GM/30 ML CUP PO PRN (20:30)
[2018-01-02] MEDS ORDERED: BISACODYL 10 MG SUPP RECTAL PRN (20:30)
[2018-01-02] MEDS ORDERED: NALOXONE HCL 0.4 MG/ML AMP IV PUSH PRN (20:30)
[2018-01-02] MEDS ORDERED: SENNOSIDES 8.6 MG TAB PO PRN (20:30)
[2018-01-02] MEDS ORDERED: MAGNESIUM HYDROXIDE SUSP 30 ML CUP PO PRN (20:30)
[2018-01-02] MEDS: DOCUSATE SODIUM 50 MG/SENNA 8.6 MG TAB PO SCH (21:00)
[2018-01-02] MEDS: APIXABAN 5 MG TABLET PO SCH (21:05)
[2018-01-02] MEDS: ACETAMINOPHEN/HYDROcodone 325 MG/5 MG TAB PO PRN (22:02)
[2018-01-02 22:19] LABS: BILIRUBIN, URINE NEG (NEG); BLOOD, URINE NEG (NEG); GLUCOSE,URINE NEG (NEG); HYALINE CAST, URINE 1 /lpf (RARE); KETONE, URINE NEG (NEG); MUCUS URINE FEW /lpf (OCC); NITRITE,URINE NEG (NEG); PH, URINE 5.5 (5.0-8.5); SQUAMOUS EPITHELIAL CELL URINE 1 /hpf (0-5); URINE COLOR YELLOW (YELLW/STRAW); URINE LEUKOCYTE ESTERASE NEG (NEG)
--- NOTE | 2018-01-02 22:21 | RADRPT ---
EXAM DATE/TIME: 01/02/2018 21:42 [facility] COMPARISON: US ABDOMEN - GALLBLADDER, December 25, 2017, 9:06. INDICATIONS : Right upper quadrant pain. MEDICAL HISTORY : Hypercholesterol. HTN. CHF. Bipolar. Neuropathy. SURGICAL HISTORY : Pacemaker. Coronary stent. CABG. Left shoulder surgery. ENCOUNTER: Subsequent ACUITY: 2 weeks PAIN SCORE: 5/10 LOCATION: Right upper quadrant MEASUREMENTS: LIVER: 15.1 cm length COMMON DUCT: 7 mm RIGHT KIDNEY: 10.0 x 5.0 x 5.8 cm FINDINGS: LIVER: Normal echotexture without focal lesion or ductal dilatation. COMMON DUCT: No intraluminal mass or stone visualized. GALLBLADDER: Decompressed with a drainage catheter. Thickened wall again noted. PANCREAS: The visualized portions are within normal limits. RIGHT KIDNEY: No evidence of hydronephrosis, stone, or mass. CONCLUSION: 1. Gallbladder drain present. The gallbladder is decompressed. Thick wall again noted. 2. Decreased diameter of the common bile duct. Iain Barnett MD on January 02, 2018 at 22:17 Board Certified Radiologist. This report was verified electronically.
[2018-01-02 22:40] LABS: TROPONIN I 0.03 NG/ML (0.02-0.05)
--- NOTE | 2018-01-02 23:47 | PD.CONS ---
HPI Consult Requested By Reason for Consult Ventricular tachycardia Primary Care Physician No Primary Care Physician History of Present Illness 72 year old man, patient of DR. Pierre Livingston,was sent to ED via [facility] today for workup of AICD firing. He notes the AICD fired at around 2pm today. He was standing up from sitting, felt acutely short of breath, then ICD fired. He felt goofy for a short time. He reported no chest pain, no palpitation prior to the even. Indeed that was the first time ever having AICD fire in 3-4 years since the implantation. ECG showed sinus rhythm, IVCD. CMP nl. CxR ok. ICD interrogation showed several episodes of nonsustained VT at 130s BPM, treated with ATP x 2, then one episode required defibrillation shock at 11 J. He has hx of CAD, recent RCA stenting with BMS last month, CHF, LVEF 25%, s/p AICD ([employer] device), COPD He was recently hospitalized for cholecystitis, underwent drainage tube RUQ, which was supposedly removed today. He stopped taking his heart and HTN meds at home for about one week because GI discomforts, he said. Review of Systems Consitutional: DENIES: Fatigue, Fever, Chills, Weight gain, Weight loss Eyes: DENIES: Amaurosis Fugax, Change in vision HEENT: COMPLAINS OF: Lightheadedness, DENIES: Change in hearing Respiratory: COMPLAINS OF: See HPI, DENIES: Cough, Snoring, Shortness of breath , Wheezing, Sputum production Cardiovascular: COMPLAINS OF: See HPI, DENIES: Chest pain, Palpitations, Syncope, Tachycardia Gastrointestinal: COMPLAINS OF: Nausea, DENIES: Vomiting, Change in bowel habits, Reflux, Bloody stools, Melena Genitourinary: DENIES: Urinary incontinence, Difficulty voiding Integumentary: DENIES: Rash Neurologic: DENIES: Tingling or numbness, Memory problems, Poor Balance, Stroke symptoms Musculoskeletal: COMPLAINS OF: Joint pain, DENIES: Muscle pain, Limited range of motion, Back pain Psychiatric: COMPLAINS OF: Anxiety, DENIES: Depression, Sleep disturbances Hematologic: DENIES: Bruising tendencies, Bleeding tendencies Endocrine: DENIES: Weight gain, Weight loss, Thyroid disease Past Family Social History Allergies: Coded Allergies: No Known Allergies (Verified Allergy, Unknown, 01/02/18) Past Medical History CAD, h x of CABG CHF with AICD COPD (breathing difficulty) No reported history of DM, liver disease, kidney disease, or cancer ?Lower extremity neuropathy Past Surgical History CABG ~10 years ago AICD placement - [place] Two stents after that Left shoulder surgery with screw p Reported Medications Reported Meds & Active Scripts Active Augmentin (Amoxicillin-Clavulanate) 875-125 Mg Tab 1 Tab PO BID Norvasc (Amlodipine Besylate) 5 Mg Tab 5 Mg PO DAILY Lisinopril 10 Mg Tab 10 Mg PO DAILY [place] (Hydrocodone-Acetaminophen) 5 Mg-325 Mg Tab 1 Tab PO Q6H PRN Furosemide 40 Mg Tab 40 Mg PO DAILY Seroquel (Quetiapine Fumarate) 25 Mg Tab 25 Mg PO BID@, Tgt Aspirin (Aspirin) 81 Mg Chw 81 Mg PO DAILY Aldactone (Spironolactone) 25 Mg Tab 25 Mg PO BID@, Potassium Chloride ER (Potassium Chloride) 20 Meq Tab 20 Meq PO DAILY Eliquis (Apixaban) 5 Mg Tab 5 Mg PO BID Coreg (Carvedilol) 12.5 Mg Tab 12.5 Mg PO DAILY Atorvastatin (Atorvastatin Calcium) 40 Mg Tab 40 Mg PO HS Reported Simvastatin 20 Mg Tab 20 Mg PO DAILY Multiple Vitamin 1 Tab 1 Tab PO DAILY Divalproex DR (Divalproex Sodium) 500 Mg Tabdr 500 Mg PO TID Duloxetine DR (Duloxetine HCl) 60 Mg Capdr 60 Mg PO DAILY Tamsulosin (Tamsulosin HCl) 0.4 Mg Cap 0.8 Mg PO HS Amiodarone (Amiodarone HCl) 200 Mg Tab 200 Mg PO DAILY Gabapentin 300 Mg Cap 300 Mg PO TID Tramadol (Tramadol HCl) 50 Mg Tab 50 Mg PO Q6H PRN Active Ordered Medications Current Medications Medications (Trade) Dose Ordered Sig/Eliot Route Start Time Stop Time Status Last Admin (NS Flush) 2 ml UNSCH PRN IVF 01/02/18 16:15 (NS Flush) 2 ml UNSCH PRN IVF 01/02/18 18:30 Amiodarone HCl 450 mg/Sodium Chloride 250 ml @ 33 mls/hr Q7H35M IV 01/02/18 18:45 01/02/18 19:13 (Vasotec Inj) 1.25 mg Q6H PRN IV PUSH 01/02/18 20:15 (Norvasc) 5 mg DAILY PO 01/03/18 09:00 (Eliquis) 5 mg BID PO 01/02/18 21:00 01/02/18 21:05 (Aspirin Chew) 81 mg DAILY PO 01/03/18 09:00 (Coreg) 12.5 mg DAILY PO 01/03/18 09:00 (Depakote Dr) 500 mg TID PO 01/03/18 09:00 (Cymbalta Dr) 60 mg DAILY PO 01/03/18 09:00 (Lasix) 40 mg DAILY PO 01/03/18 09:00 (Neurontin) 300 mg TID PO 01/03/18 09:00 ([place] 5-325 Mg) 1 tab Q6H PRN PO 01/02/18 20:15 01/02/18 22:02 (Prinivil) 10 mg DAILY PO 01/03/18 09:00 (KCl) 20 meq DAILY PO 01/03/18 09:00 (SEROquel) 25 mg BID@09,12 PO 01/03/18 09:00 (Aldactone) 25 mg BID@,18 PO 01/03/18 09:00 (Tylenol) 650 mg Q4H PRN PO 01/02/18 20:30 (Narcan Inj) 0.4 mg UNSCH PRN IV PUSH 01/02/18 20:30 (Lillian-Colace) 1 tab BID PO 01/02/18 21:00 (Milk Of Magnesia Liq) 30 ml Q12H PRN PO 01/02/18 20:30 (Senokot) 17.2 mg Q12H PRN PO 01/02/18 20:30 (Dulcolax Supp) 10 mg DAILY PRN RECTAL 01/02/18 20:30 (Lactulose Liq) 30 ml DAILY PRN PO 01/02/18 20:30 Family History Patient does not have significant family history reported. Social History Lives with roommates in [facility] in [facility] : no Tobacco: remote Alcohol: remote Denies illicit drugs Physical Exam Vital Signs Vital Signs Date Time Temp Pulse Resp B/P (MAP) Pulse Ox O2 Delivery O2 Flow Rate FiO2 01/02/18 23:24 01/02/18 23:10 98.0 66 16 147/74 (98) 97 01/02/18 19:44 67 16 158/67 (97) 99 Room Air 01/02/18 19:44 16 100 Room Air 01/02/18 19:30 100 01/02/18 19:13 64 14 181/74 (109) 100 Room Air 01/02/18 19:13 64 181/74 01/02/18 18:15 61 16 152/71 (98) 96 Room Air 01/02/18 16:28 16 98 Room Air 01/02/18 15:26 98.3 82 16 148/69 (95) 96 Physical Exam GENERAL: This is a well-nourished, well-developed male patient lying in bed in no apparent distress. SKIN: No rashes, ecchymoses or lesions. Cool and dry. HEAD: Atraumatic. Normocephalic. No temporal or scalp tenderness. EYES: Pupils equal round and reactive. Extraocular motions intact. No scleral icterus. No injection or drainage. ENT: Nose without bleeding or purulent discharge. Throat without erythema, tonsillar hypertrophy or exudate. Uvula midline. Airway patent. NECK: Trachea midline. No JVD or lymphadenopathy. Supple, nontender, no meningeal signs. CARDIOVASCULAR: Regular rate and rhythm without murmurs, gallops, or rubs. RESPIRATORY: Clear to auscultation. Breath sounds equal bilaterally. No wheezes , rales, or rhonchi. GASTROINTESTINAL: Gallbladder drain in place and right upper quadrant with skin showing no signs of infection or breakdown. Dressing is dated 12/25/17. The drainage bag has green fluid of less than 50 cc. Abdomen soft, obese. Normal bowel sounds. No hepato-splenomegaly, or palpable masses. No guarding. MUSCULOSKELETAL: Extremities without clubbing, cyanosis, or edema. No joint tenderness, effusion, or edema noted. No calf tenderness. NEUROLOGICAL: Awake and alert. Cranial nerves II through XII grossly intact. Motor and sensory grossly within normal limits. Five out of 5 muscle strength in UEs and LEs. Normal speech. Laboratory Laboratory Tests Test 01/02/18 15:30 01/02/18 21:04 01/02/18 21:30 White Blood Count 10.4 Red Blood Count 3.32 Hemoglobin 10.4 Hematocrit 31.9 Mean Corpuscular Volume 96.2 Mean Corpuscular Hemoglobin 31.5 Mean Corpuscular Hemoglobin Concent 32.7 Red Cell Distribution Width 15.7 Platelet Count 264 Mean Platelet Volume 7.9 Neutrophils (%) (Auto) 65.7 Lymphocytes (%) (Auto) 21.7 Monocytes (%) (Auto) 10.7 Eosinophils (%) (Auto) 1.4 Basophils (%) (Auto) 0.5 Neutrophils # (Auto) 6.8 Lymphocytes # (Auto) 2.3 Monocytes # (Auto) 1.1 Eosinophils # (Auto) 0.1 Basophils # (Auto) 0.1 CBC Comment DIFF FINAL Differential Comment Prothrombin Time 10.0 Prothromb Time International Ratio 1.0 Activated Partial Thromboplast Time 21.9 Blood Urea Nitrogen 26 Creatinine 1.23 Random Glucose 162 Total Protein 7.4 Albumin 2.6 Calcium Level 8.5 Magnesium Level 2.0 Alkaline Phosphatase 53 Aspartate Amino Transf (AST/SGOT) 20 Alanine Aminotransferase (ALT/SGPT) 27 Total Bilirubin 0.2 Sodium Level 146 Potassium Level 4.2 Chloride Level 113 Carbon Dioxide Level 22.6 Anion Gap 10 Estimat Glomerular Filtration Rate 58 Total Creatine Kinase 46 41 Troponin I 0.02 0.03 B-Type Natriuretic Peptide 113 Urine Color YELLOW Urine Turbidity CLEAR Urine pH 5.5 Urine Specific [place] 1.021 Urine Protein TRACE Urine Glucose (UA) NEG Urine Ketones NEG Urine Occult Blood NEG Urine Nitrite NEG Urine Bilirubin NEG Urine Urobilinogen LESS THAN 2.0 Urine Leukocyte Esterase NEG Urine WBC 5 Urine Squamous Epithelial Cells 1 Urine Hyaline Casts 1 Urine Mucus FEW Microscopic Urinalysis Comment CULT NOT INDICATED Result Diagram: 01/02/18 1530 01/02/18 1530 Assessment and Plan Problem List: (1) Ventricular tachycardia ICD Codes: I47.2 - Ventricular tachycardia Status: Acute (2) CHF (congestive heart failure) ICD Codes: I50.9 - Heart failure, unspecified (3) CAD (coronary artery disease) ICD Codes: I25.10 - Atherosclerotic heart disease of redding coronary artery without angina pectoris (4) HTN (hypertension) ICD Codes: I10 - Essential (primary) hypertension Status: Chronic (5) Hyperlipidemia ICD Codes: E78.5 - Hyperlipidemia, unspecified Status: Chronic (6) Cholecystitis ICD Codes: K81.9 - Cholecystitis, unspecified Status: Acute Assessment and Plan 1. Ventricular tachycardia, restored to sinus rhythm after appropriate ICD shock. Most likely due to lack of medication because he was not taking them. Restart home medications which include amiodarone 200 mg daily with goal to wean from amiodarone drip as tolerated Will obtain serial cardiac enzymes, EKG First EKG showed sinus rhythm 2. LVSD, acute on chronic CHF, known LVEF 25-30% by Echo 10/2017. ICD implanted 3 -4 years ago, Resume Carvedilol, Lisinopril, Spironolactone, and lasix. Educated patient importance of compliant on medications 3. CAD, hx of CABG, recent RCA stenting with BMS. \ Continue Aspirin and Plavix. 4. HTN. Resume home medications, see above. 5. hx of afib, Resume Eliquis 6. cholecystitis, was believed a poor surgical candidate given heart failure and cholecystitis was seriously monitored by imaging. IR initially placed percutaneous angela drain on 12/14 under fluoroscopy and ultrasound. IR replaced angela tube on 12/20 after patient pulled it out. He is noted to have been seen in the ED on 12/29 with vague symptoms and negative lab workup. 7. Hyperlipidemia. Patient was discharged on atorvastatin 40 mg nightly at time of last discharge, will continue this. 8. hx of chronic seizure disorder, on valproate. Problem Qualifiers (1) HTN (hypertension): Qualified Codes: I10 - Essential (primary) hypertension Wing Francine Hart MD Jan 02, 2018 23:47
[2018-01-03] VITALS (29 sets, daily range): BP systolic 90–152; BP diastolic 47–73; PULSE 50–66; RESP 14–18; TEMP 97.8–98.4; O2SAT 96–99
[2018-01-03] MEDS: ACETAMINOPHEN 325 MG TAB PO PRN (00:29)
[2018-01-03 04:32] LABS: AUTOMATED NEUTROPHIL # 5.3 TH/MM3 (1.8-7.7); BASOPHIL # 0.1 TH/MM3 (0-0.2); BASOPHIL % 0.9 % (0.0-2.0); EOSINOPHIL # 0.2 TH/MM3 (0-0.4); EOSINOPHIL % 1.6 % (0.0-4.0); HEMATOCRIT 27.2 % (39.0-51.0); HEMOGLOBIN 9.1 GM/DL (13.0-17.0); LYMPH % 30.5 % (9.0-44.0); MEAN CELL VOLUME 95.3 FL (80.0-100.0); MEAN CORPUSCULAR HEMOGLOBIN 31.9 PG (27.0-34.0); MEAN CORPUSCULAR HGB CONC 33.5 % (32.0-36.0); MEAN PLATELET VOLUME 7.2 FL (7.0-11.0); MONO % 11.9 % (0.0-8.0); MONOCYTE # 1.1 TH/MM3 (0-0.9); NEUT % 55.1 % (16.0-70.0); PLATELET COUNT 217 TH/MM3 (150-450); RED BLOOD COUNT 2.85 MIL/MM3 (4.50-5.90); RED CELL DISTRIBUTION WIDTH 15.3 % (11.6-17.2); WHITE BLOOD COUNT 9.7 TH/MM3 (4.0-11.0)
[2018-01-03 04:55] LABS: ALBUMIN 2.2 GM/DL (3.4-5.0); AST (GOT) 16 U/L (15-37); BLOOD UREA NITROGEN 23 MG/DL (7-18); CALCIUM 8.1 MG/DL (8.5-10.1); CHLORIDE 112 MEQ/L (98-107); CREATININE 0.96 MG/DL (0.60-1.30); GLOMERULAR FILTRATION RATE 77 ML/MIN (>89); GLUCOSE,RANDOM 94 MG/DL (74-106); SODIUM (NA) 142 MEQ/L (136-145)
[2018-01-03 04:56] LABS: ALT (GPT) 26 U/L (12-78)
[2018-01-03 04:58] LABS: ALKALINE PHOSPHATASE 47 U/L (45-117); TOTAL BILIRUBIN ADULT 0.3 MG/DL (0.2-1.0); TOTAL PROTEIN 6.6 GM/DL (6.4-8.2)
[2018-01-03 05:50] LABS: TROPONIN I 0.03 NG/ML (0.02-0.05)
[2018-01-03] MEDS: AMIODARONE INJ 450 MG in SODIUM CHLOR 0.9% (EXCEL) INJ 241 ML IV SCH (05:55)
[2018-01-03] MEDS: ACETAMINOPHEN/HYDROcodone 325 MG/5 MG TAB PO PRN (07:14)
[2018-01-03] MEDS ORDERED: FUROSEMIDE 40 MG TAB PO SCH (09:00)
[2018-01-03] MEDS: DOCUSATE SODIUM 50 MG/SENNA 8.6 MG TAB PO SCH ×2 (09:00→21:00)
[2018-01-03] MEDS: AMIODARONE 200 MG TAB PO SCH (09:55)
[2018-01-03] MEDS: ASPIRIN 81 MG CHEW TAB PO SCH (09:55)
[2018-01-03] MEDS: DULoxetine HCl DR 60 MG CAP PO SCH (09:55)
[2018-01-03] MEDS: SPIRONOLACTONE 25 MG TAB PO SCH ×2 (09:56→17:46)
[2018-01-03] MEDS: APIXABAN 5 MG TABLET PO SCH ×2 (09:56→21:46)
[2018-01-03] MEDS: GABAPENTIN 300 MG CAP PO SCH ×3 (09:56→17:45)
[2018-01-03] MEDS: amLODIPine BESYLATE 5 MG TAB PO SCH (09:56)
[2018-01-03] MEDS: QUEtiapine FUMARATE 25 MG TAB PO SCH ×2 (09:57→12:10)
[2018-01-03] MEDS: POTASSIUM CHLORIDE 20 MEQ CONTROLLED RELEASE TAB PO SCH (09:57)
[2018-01-03] MEDS: CARVEDILOL 12.5 MG TAB PO SCH (09:57)
[2018-01-03] MEDS: LISINOPRIL 10 MG TAB PO SCH (09:57)
[2018-01-03] MEDS: DIVALPROEX DR 500 MG TABEC PO SCH ×3 (12:09→17:46)
[2018-01-03] MEDS: traMADol HCL 50 MG TAB PO PRN ×2 (12:10→22:09)
--- NOTE | 2018-01-03 13:22 | HHI.FPPN ---
Subjective Remarks No acute events overnight. Patient does continue to complain of headache and feeling "a little out of it". States he has better control with tramadol which he takes at home. Otherwise denies chest pain, shortness of breath, nausea vomiting or abdominal pain. Patient verbalizes understanding that he needs to take his medications every day as this was likely the cause of him returning to the hospital. (Eliud Rooney MD R1) Objective Vitals Vital Signs Date Time Temp Pulse Resp B/P (MAP) Pulse Ox O2 Delivery O2 Flow Rate FiO2 01/03/18 11:05 97.8 61 17 133/70 (91) 98 01/03/18 10:00 66 01/03/18 09:00 50 01/03/18 09:00 50 142/73 01/03/18 08:53 98 01/03/18 08:00 54 01/03/18 07:15 98.0 57 16 142/73 (96) 99 01/03/18 07:00 53 01/03/18 06:00 58 01/03/18 05:55 60 126/60 01/03/18 05:00 56 01/03/18 04:00 98.4 60 14 152/69 (96) 98 01/03/18 04:00 54 01/03/18 03:00 55 01/03/18 02:00 56 01/03/18 01:00 62 01/03/18 00:00 64 01/02/18 23:24 01/02/18 23:10 98.0 66 16 147/74 (98) 97 01/02/18 23:00 64 01/02/18 19:44 67 16 158/67 (97) 99 Room Air 01/02/18 19:44 16 100 Room Air 01/02/18 19:30 100 01/02/18 19:13 64 14 181/74 (109) 100 Room Air 01/02/18 19:13 64 181/74 01/02/18 18:15 61 16 152/71 (98) 96 Room Air 01/02/18 16:28 16 98 Room Air 01/02/18 15:26 98.3 82 16 148/69 (95) 96 I/O 01/02/18 01/02/18 01/02/18 01/03/18 01/03/18 01/03/18 07:00 15:00 23:00 07:00 15:00 23:00 Intake Total 300 ml 490 ml Output Total 350 ml Balance 300 ml 140 ml Intake Oral 300 ml 240 ml IV Total 250 ml Output Urine Total 350 ml # Voids 4 # Bowel Movements 0 (Eliud Rooney MD R1) Result Diagram: 01/03/1841601/03/18416 Objective Remarks GENERAL: This is a well-nourished, well-developed male patient sitting in chair in no apparent distress. SKIN: No rashes, ecchymoses or lesions. Cool and dry. HEAD: Atraumatic. Normocephalic. No temporal or scalp tenderness. EYES: Pupils equal round and reactive. Extraocular motions intact. No scleral icterus. No injection or drainage. ENT: Nose without bleeding or purulent discharge. Throat without erythema, tonsillar hypertrophy or exudate. Uvula midline. Airway patent. NECK: Trachea midline. No JVD or lymphadenopathy. Supple, nontender, no meningeal signs. CARDIOVASCULAR: Regular rate and rhythm without murmurs, gallops, or rubs. RESPIRATORY: Clear to auscultation. Breath sounds equal bilaterally. No wheezes , rales, or rhonchi. GASTROINTESTINAL: Gallbladder drain in place and right upper quadrant with skin showing no signs of infection or breakdown. Dressing is dated 12/25/17. The drainage bag has green fluid of less than 50 cc. Abdomen soft, obese. Normal bowel sounds. No hepato-splenomegaly, or palpable masses. No guarding. MUSCULOSKELETAL: Extremities without clubbing, cyanosis, or edema. No joint tenderness, effusion, or edema noted. No calf tenderness. NEUROLOGICAL: Awake and alert. Cranial nerves II through XII grossly intact. Motor and sensory grossly within normal limits. Five out of 5 muscle strength in UEs and LEs. Normal speech. (Eliud Rooney MD R1) A/P Assessment and Plan 72-year-old male with complicated medical history including CAD with recent stent placement on aspirin/Plavix/Eliquis, CHF, atrial fibrillation, hyperlipidemia, hypertension, recent cholecystitis with indwelling drain who presents to the ED after AICD fired at home on 01/02. AICD interrogated in the ED and noted to have fired. Patient noted to have intermittent ventricular tachycardia which is currently asymptomatic, suspect etiology of arrhythmia is that patient has not been on any of his medications for 3-4 days. Admitted to [facility] for close telemetry monitoring. Cardiology consulted. Patient was admitted on an amiodarone drip. Rate controlled and drip discontinued on 01/03 with by mouth amiodarone initiated. Discharge Planning Rate control needed prior to discharge, 1-2 days at least (Eliud Rooney MD R1) Attending Attestation 72 male patient was seen, examined and discuss with the medicine team. He is beginning to understand that he should not discontinue his current medications just because he's Urinating frequently. His implanted defibrillator went off at home that prompted his presenting to the hospital. Prior to its firing, he was short of breath but this resolved thereafter. 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 Persisting headache this a.m., has obtained good pain relief at home with Tramadol. Exam is as documented above, and I agree with the plan. He is to resume all home meds. (Shawanda Junior MD) Problem List: (1) Ventricular tachycardia ICD Codes: I47.2 - Ventricular tachycardia Status: Acute Plan: Admitted to inpatient [facility] with continuous telemetry and amiodarone drip on 01/02. Consult cardiology, appreciate recommendations Will obtain serial cardiac enzymes, EKG ACS workup negative No events on telemetry overnight Discontinuing amiodarone drip on 01/03, resumed home medications including by mouth amiodarone 200 mg daily (2) Acute on chronic systolic (congestive) heart failure ICD Codes: I50.23 - Acute on chronic systolic (congestive) heart failure Status: Chronic Plan: Patient has chronic heart failure with reduced EF with most recent EF documented October 2017 to be 25-30% with notable diffuse hypokinesis CXR on admission show no acute cardiopulmonary findings and no evidence of pulmonary congestion * Restart patient's home medications to include Spironolactone 25 mg twice daily , aspirin 81 mg daily, lisinopril 10 mg daily, carvedilol 12.5 mg daily. Patient also on amlodipine 5 mg daily, will restart. * Holding furosemide 40 mg on 01/03 as patient does not appear to be in fluid overload, may resume on 01/04 * Daily weights * Consider giving one time dose of furosemide 40 mg if patient showing signs of fluid overload, shortness of breath (3) HTN (hypertension) ICD Codes: I10 - Essential (primary) hypertension Status: Chronic Plan: Patient noted to be hypertensive during ED evaluation. Patient has not been on his blood pressure medications for more than 3 days. Restarted carvedilol, amlodipine, lisinopril, Spironolactone as noted above (4) Atrial fibrillation ICD Codes: I48.91 - Unspecified atrial fibrillation Status: Chronic Plan: Patient has chronic A. fib on Eliquis, aspirin, Plavix. We will continue these meds at this time. Monitor on telemetry (5) Cholecystitis ICD Codes: K81.9 - Cholecystitis, unspecified Status: Acute Plan: Patient with acute persistent cholecystitis for which patient had approximately 2 week hospital stay in late November, was just discharged on December 26. He was a poor surgical candidate given heart failure and cholecystitis was seriously monitored by imaging. IR initially placed percutaneous angela drain on 12/14 under fluoroscopy and ultrasound. IR replaced angela tube on 12/20 after patient pulled it out. He is noted to have been seen in the ED on 12/29 with vague symptoms and negative lab workup. He was noted to have been discharged on Augmentin 5 days but this course was completed. Lipase within normal limits on admission Gallbladder ultrasound showing decompressed gallbladder, decreased diameter of common bile duct Consulted IR for possible drain removal if indicated Patient may benefit from re-evaluation from general surgery but will hold off on consult at this time (6) Anemia ICD Codes: D64.9 - Anemia, unspecified Status: Acute Plan: Noted. Suspect this is related to chronic disease. MCV within normal limits. Hemoglobin of 10.4 on admission, 9.1 on 01/03 Will monitor, continue workup as indicated (7) Hyperlipidemia ICD Codes: E78.5 - Hyperlipidemia, unspecified Status: Chronic Plan: Patient was discharged on atorvastatin 40 mg nightly at time of last discharge, will continue this. Will discontinue simvastatin and patient's med rec (8) Seizure disorder ICD Codes: G40.909 - Epilepsy, unspecified, not intractable, without status epilepticus Status: Chronic Plan: Patient appears to have a chronic seizure disorder given he is on valproate. He is also on gabapentin but this may be for neuropathy. We will continue home dose valproate DR 500 mg PO 3 times daily and gabapentin 300 mg p.o. 3 times daily. Patient will be placed on seizure precaution and fall precautions, currently bedrest (9) Depression ICD Codes: F32.9 - Major depressive disorder, single episode, unspecified Status: Chronic Plan: Patient was a history of depression on Seroquel 25 mg twice daily and duloxetine 60 mg daily. Will continue these. Patient does deny any psychiatric history (10) Fluids/Electrolytes/Nutrition/Prophylaxis Status: Acute Plan: Fluids: tolerating PO Electrolytes: monitor and replete as needed Nutrition: heart-healthy diet DVT Prophylaxis: Early ambulation. On aspirin, Plavix, Eliquis. GI Prophylaxis: None indicated PRN anti-HTN: Vasotec 1.25 mg IV every 6 hours PRN for SBP > 180 and/or DBP > 100 PRN for pain - tramadol 50 mg by mouth every 6 hours as needed for pain 1-10, may consider adding IV Tylenol patient needs of headaches (Eliud Rooney MD R1) Problem Qualifiers (1) HTN (hypertension): Qualified Codes: I10 - Essential (primary) hypertension (2) Atrial fibrillation: Qualified Codes: I48.2 - Chronic atrial fibrillation (3) Anemia: Qualified Codes: D64.9 - Anemia, unspecified (4) Depression: Qualified Codes: F33.42 - Major depressive disorder, recurrent, in full remission Eliud Rooney MD R1 Jan 03, 2018 13:22 Shawanda Junior MD Jan 03, 2018 14:48
--- NOTE | 2018-01-03 18:13 | EKG ---
Date Performed: 01/02/2018 Time Performed: 21:58:36 PTAGE: 72 years EKG: Sinus rhythm LOW QRS VOLTAGE IN PRECORDIAL LEADS LEFT ANTERIOR FASCICULAR BLOCK ANTEROSEPTAL MYOCARDIAL INFARCTIO N MODERATE T-WAVE ABNORMALITY, CONSIDER LATERAL ISCHEMIA ABNORMAL ECG Compared to PREVIOUS TRACING , the intraventricular conduction disturbance has resolved. ST-T segment s are about the same. PREVIOUS TRACIN01/02/2018 15.29 DOCTOR: Tarik Bolanos Interpretating Date/Time 01/03/2018 18:12:37
--- NOTE | 2018-01-03 18:13 | EKG ---
Date Performed: 01/02/2018 Time Performed: 15:29:41 PTAGE: 72 years EKG: Sinus rhythm MARKED LEFT AXIS DEVIATION INTRAVENTRICULAR CONDUCTION DELAY ABNORMAL ECG Since PREVIOUS TRACING , the intraventricular conduction disturbance is new. PREVIOUS TRACING 12/29/2017 03.59 DOCTOR: Tarik Bolanos Interpretating Date/Time 01/03/2018 18:11:54
--- NOTE | 2018-01-03 18:15 | EKG ---
Date Performed: 01/03/2018 Time Performed: 02:59:34 PTAGE: 72 years EKG: Sinus bradycardia Left axis deviation Diffuse ST-T wave change Poor R-wave progression, can not exclude anteroseptal [place] age undtermined Abnormal ECG Since PREVIOUS TRACING , no significant change noted PREVIOUS TRACIN01/02/2018 21.58 DOCTOR: Tarik Bolanos Interpretating Date/Time 01/03/2018 18:14:05
[2018-01-03] MEDS ORDERED: ONDANSETRON HCL 4 MG/2 ML VIAL IV PUSH PRN (20:30)
[2018-01-03] MEDS: SODIUM CHLORIDE 0.9% FLUSH 10 ML FLUSH IVF PRN (21:46)
[2018-01-03] MEDS: ATORVASTATIN 40 MG TAB PO SCH (21:47)
--- NOTE | 2018-01-03 22:09 | PD.CARD.PN ---
Subjective Subjective Remarks Feeling ok today, no Vtachy, Still has dyspnea. Objective Medications Current Medications Medications (Trade) Dose Ordered Sig/Eliot Route Start Time Stop Time Status Last Admin (NS Flush) 2 ml UNSCH PRN IVF 01/02/18 16:15 01/03/18 21:46 (NS Flush) 2 ml UNSCH PRN IVF 01/02/18 18:30 (Vasotec Inj) 1.25 mg Q6H PRN IV PUSH 01/02/18 20:15 (Norvasc) 5 mg DAILY PO 01/03/18 09:00 01/03/18 09:56 (Eliquis) 5 mg BID PO 01/02/18 21:00 01/03/18 21:46 (Aspirin Chew) 81 mg DAILY PO 01/03/18 09:00 01/03/18 09:55 (Coreg) 12.5 mg DAILY PO 01/03/18 09:00 01/03/18 09:57 (Depakote Dr) 500 mg TID PO 01/03/18 09:00 01/03/18 17:46 (Cymbalta Dr) 60 mg DAILY PO 01/03/18 09:00 01/03/18 09:55 (Lasix) 40 mg DAILY PO 01/03/18 09:00 Future Hold (Neurontin) 300 mg TID PO 01/03/18 09:00 01/03/18 17:45 (Prinivil) 10 mg DAILY PO 01/03/18 09:00 01/03/18 09:57 (KCl) 20 meq DAILY PO 01/03/18 09:00 01/03/18 09:57 (SEROquel) 25 mg BID@09,12 PO 01/03/18 09:00 01/03/18 12:10 (Aldactone) 25 mg BID@09,18 PO 01/03/18 09:00 01/03/18 17:46 (Tylenol) 650 mg Q4H PRN PO 01/02/18 20:30 01/03/18 00:29 (Narcan Inj) 0.4 mg UNSCH PRN IV PUSH 01/02/18 20:30 (Lillian-Colace) 1 tab BID PO 01/02/18 21:00 (Milk Of Magnesia Liq) 30 ml Q12H PRN PO 01/02/18 20:30 (Senokot) 17.2 mg Q12H PRN PO 01/02/18 20:30 (Dulcolax Supp) 10 mg DAILY PRN RECTAL 01/02/18 20:30 (Lactulose Liq) 30 ml DAILY PRN PO 01/02/18 20:30 (Cordarone) 200 mg DAILY PO 01/03/18 09:00 01/03/18 09:55 (Lipitor) 40 mg HS PO 01/03/18 21:00 01/03/18 21:47 (Ultram) 50 mg Q6H PRN PO 01/03/18 09:45 01/03/18 12:10 (Zofran Inj) 4 mg Q6H PRN IV PUSH 01/03/18 20:30 01/03/18 21:45 Vital Signs / I&O Vital Signs Date Time Temp Pulse Resp B/P (MAP) Pulse Ox O2 Delivery O2 Flow Rate FiO2 01/03/18 21:40 96 21 01/03/18 19:49 98.0 54 18 90/48 (62) 96 01/03/18 18:00 52 01/03/18 17:00 54 01/03/18 16:00 52 01/03/18 16:00 98.0 54 17 107/47 (67) 97 01/03/18 15:00 58 01/03/18 14:00 64 01/03/18 13:00 66 01/03/18 12:00 62 01/03/18 11:05 97.8 61 17 133/70 (91) 98 01/03/18 11:00 60 01/03/18 10:00 66 01/03/18 09:00 50 01/03/18 09:00 50 142/73 01/03/18 08:53 98 01/03/18 08:00 54 01/03/18 07:15 98.0 57 16 142/73 (96) 99 01/03/18 07:00 53 01/03/18 06:00 58 01/03/18 05:55 60 126/60 01/03/18 05:00 56 01/03/18 04:00 98.4 60 14 152/69 (96) 98 01/03/18 04:00 54 01/03/18 03:00 55 01/03/18 02:00 56 01/03/18 01:00 62 01/03/18 00:00 64 01/02/18 23:24 01/02/18 23:10 98.0 66 16 147/74 (98) 97 01/02/18 23:00 64 I/O 01/02/18 01/02/18 01/02/18 01/03/18 01/03/18 01/03/18 07:00 15:00 23:00 07:00 15:00 23:00 Intake Total 300 ml 490 ml 480 ml Output Total 350 ml 550 ml Balance 300 ml 140 ml -70 ml Intake Oral 300 ml 240 ml 480 ml IV Total 250 ml Output Urine Total 350 ml 550 ml # Voids 4 # Bowel Movements 0 Physical Exam GENERAL: This is a well-nourished, well-developed male patient lying in bed in no apparent distress. SKIN: No rashes, ecchymoses or lesions. Cool and dry. HEAD: Atraumatic. Normocephalic. No temporal or scalp tenderness. EYES: Pupils equal round and reactive. Extraocular motions intact. No scleral icterus. No injection or drainage. ENT: Nose without bleeding or purulent discharge. Throat without erythema, tonsillar hypertrophy or exudate. Uvula midline. Airway patent. NECK: Trachea midline. No JVD or lymphadenopathy. Supple, nontender, no meningeal signs. CARDIOVASCULAR: Regular rate and rhythm without murmurs, gallops, or rubs. RESPIRATORY: Clear to auscultation. Breath sounds equal bilaterally. No wheezes , rales, or rhonchi. GASTROINTESTINAL: Gallbladder drain in place and right upper quadrant with skin showing no signs of infection or breakdown. Dressing is dated 12/25/17. The drainage bag has green fluid of less than 50 cc. Abdomen soft, obese. Normal bowel sounds. No hepato-splenomegaly, or palpable masses. No guarding. MUSCULOSKELETAL: Extremities without clubbing, cyanosis, or edema. No joint tenderness, effusion, or edema noted. No calf tenderness. NEUROLOGICAL: Awake and alert. Cranial nerves II through XII grossly intact. Motor and sensory grossly within normal limits. Five out of 5 muscle strength in UEs and LEs. Normal speech. Laboratory Laboratory Tests Test 01/03/18 04:17 White Blood Count 9.7 TH/MM3 Red Blood Count 2.85 MIL/MM3 Hemoglobin 9.1 GM/DL Hematocrit 27.2 % Mean Corpuscular Volume 95.3 FL Mean Corpuscular Hemoglobin 31.9 PG Mean Corpuscular Hemoglobin Concent 33.5 % Red Cell Distribution Width 15.3 % Platelet Count 217 TH/MM3 Mean Platelet Volume 7.2 FL Neutrophils (%) (Auto) 55.1 % Lymphocytes (%) (Auto) 30.5 % Monocytes (%) (Auto) 11.9 % Eosinophils (%) (Auto) 1.6 % Basophils (%) (Auto) 0.9 % Neutrophils # (Auto) 5.3 TH/MM3 Lymphocytes # (Auto) 3.0 TH/MM3 Monocytes # (Auto) 1.1 TH/MM3 Eosinophils # (Auto) 0.2 TH/MM3 Basophils # (Auto) 0.1 TH/MM3 CBC Comment DIFF FINAL Differential Comment Blood Urea Nitrogen 23 MG/DL Creatinine 0.96 MG/DL Random Glucose 94 MG/DL Total Protein 6.6 GM/DL Albumin 2.2 GM/DL Calcium Level 8.1 MG/DL Alkaline Phosphatase 47 U/L Aspartate Amino Transf (AST/SGOT) 16 U/L Alanine Aminotransferase (ALT/SGPT) 26 U/L Total Bilirubin 0.3 MG/DL Sodium Level 142 MEQ/L Potassium Level 3.9 MEQ/L Chloride Level 112 MEQ/L Carbon Dioxide Level 20.0 MEQ/L Anion Gap 10 MEQ/L Estimat Glomerular Filtration Rate 77 ML/MIN Total Creatine Kinase 42 U/L Troponin I 0.03 NG/ML Lipase 222 U/L Assessment and Plan Problem List: (1) Ventricular tachycardia ICD Codes: I47.2 - Ventricular tachycardia Status: Acute (2) CHF (congestive heart failure) ICD Codes: I50.9 - Heart failure, unspecified (3) CAD (coronary artery disease) ICD Codes: I25.10 - Atherosclerotic heart disease of [place] coronary artery without angina pectoris (4) HTN (hypertension) ICD Codes: I10 - Essential (primary) hypertension Status: Chronic (5) Hyperlipidemia ICD Codes: E78.5 - Hyperlipidemia, unspecified Status: Chronic (6) Cholecystitis ICD Codes: K81.9 - Cholecystitis, unspecified Status: Acute Assessment and Plan 1. Ventricular tachycardia, restored to sinus rhythm after appropriate ICD shock. Most likely due to lack of medication because he was not taking them. Restart home medications which include amiodarone 200 mg daily, IV Amiodarone stopped this AM Negative serial cardiac enzymes, EKG First EKG showed sinus rhythm Patient can be discharged from cardiology standpoint. 2. LVSD, acute on chronic CHF, known LVEF 25-30% by Echo 10/2017. ICD implanted 3 -4 years ago, Resume Carvedilol, Lisinopril, Spironolactone, and lasix. Educated patient importance of compliant on medications 3. CAD, hx of CABG, recent RCA stenting with BMS. \ Continue Aspirin and Plavix. 4. HTN. Resume home medications, see above. 5. hx of afib, Resume Eliquis 6. cholecystitis, was believed a poor surgical candidate given heart failure and cholecystitis was seriously monitored by imaging. IR initially placed percutaneous angela drain on 12/14 under fluoroscopy and ultrasound. IR replaced angela tube on 12/20 after patient pulled it out. He is noted to have been seen in the ED on 12/29 with vague symptoms and negative lab workup. 7. Hyperlipidemia. Patient was discharged on atorvastatin 40 mg nightly at time of last discharge, will continue this. 8. hx of chronic seizure disorder, on valproate. Problem Qualifiers (1) HTN (hypertension): Qualified Codes: I10 - Essential (primary) hypertension Wing Francine Hart MD Jan 03, 2018 22:09
[2018-01-04] VITALS (27 sets, daily range): BP systolic 85–122; BP diastolic 41–69; PULSE 53–74; RESP 14–20; TEMP 97–98.2; O2SAT 94–98
[2018-01-04] MEDS: GABAPENTIN 300 MG CAP PO SCH ×3 (08:48→17:58)
[2018-01-04] MEDS: ASPIRIN 81 MG CHEW TAB PO SCH (08:48)
[2018-01-04] MEDS: POTASSIUM CHLORIDE 20 MEQ CONTROLLED RELEASE TAB PO SCH (08:49)
[2018-01-04] MEDS: QUEtiapine FUMARATE 25 MG TAB PO SCH ×2 (08:49→13:48)
[2018-01-04] MEDS: LISINOPRIL 10 MG TAB PO SCH (08:49)
[2018-01-04] MEDS: DULoxetine HCl DR 60 MG CAP PO SCH (08:49)
[2018-01-04] MEDS: CARVEDILOL 12.5 MG TAB PO SCH (08:49)
[2018-01-04] MEDS: DIVALPROEX DR 500 MG TABEC PO SCH ×3 (08:49→17:58)
[2018-01-04] MEDS: SPIRONOLACTONE 25 MG TAB PO SCH ×2 (08:49→17:58)
[2018-01-04] MEDS: amLODIPine BESYLATE 5 MG TAB PO SCH (08:49)
[2018-01-04] MEDS: AMIODARONE 200 MG TAB PO SCH (08:49)
[2018-01-04] MEDS: APIXABAN 5 MG TABLET PO SCH ×2 (08:50→22:04)
[2018-01-04] MEDS: traMADol HCL 50 MG TAB PO PRN ×2 (08:51→15:46)
--- NOTE | 2018-01-04 08:54 | HHI.FPPN ---
Subjective Remarks Patient was seen and examined this morning. He is feeling better overall since yesterday but notes that food is not to his liking. He did have one episode of vomiting yesterday evening but no recurrence. No nausea currently. Denies chest pain, shortness of breath while supine. Tramadol helped significantly with his body pain and headache. PT recommending rehab and patient is very agreeable to this, noting he feels weaker since last hospitalization. Eating and drinking without difficulty. He does complain of difficulty with urination, was on Flomax at home which was held at time of admission. Objective Vitals Vital Signs Date Time Temp Pulse Resp B/P (MAP) Pulse Ox O2 Delivery O2 Flow Rate FiO2 01/04/18 08:00 98.0 62 16 119/69 (86) 97 01/04/18 06:00 56 01/04/18 05:00 64 01/04/18 04:00 54 01/04/18 04:00 62 14 112/58 (76) 95 01/04/18 03:00 53 01/04/18 02:00 54 01/04/18 01:00 54 01/04/18 00:25 97.9 59 16 85/41 (56) 96 01/04/18 00:00 56 01/03/18 23:00 58 01/03/18 22:00 54 01/03/18 21:40 96 21 01/03/18 21:00 52 01/03/18 20:00 51 01/03/18 19:49 98.0 54 18 90/48 (62) 96 01/03/18 19:00 52 01/03/18 18:00 52 01/03/18 17:00 54 01/03/18 16:00 52 01/03/18 16:00 98.0 54 17 107/47 (67) 97 01/03/18 15:00 58 01/03/18 14:00 64 01/03/18 13:00 66 01/03/18 12:00 62 01/03/18 11:05 97.8 61 17 133/70 (91) 98 01/03/18 11:00 60 01/03/18 10:00 66 01/03/18 09:00 50 01/03/18 09:00 50 142/73 01/03/18 08:53 98 I/O 01/03/18 01/03/18 01/03/18 01/04/18 01/04/18 01/04/18 07:00 15:00 23:00 07:00 15:00 23:00 Intake Total 490 ml 480 ml 360 ml Output Total 350 ml 550 ml 600 ml Balance 140 ml -70 ml -240 ml Intake Oral 240 ml 480 ml 360 ml IV Total 250 ml 0 ml Output Urine Total 350 ml 550 ml 600 ml # Voids 4 # Bowel Movements 0 0 Result Diagram: 01/03/18 0417 01/03/18 0417 Imaging Last Impressions Chest X-Ray 01/02/18 1601 Signed Impressions: Service Date/Time: Tuesday, January 02, 2018 16:47 - CONCLUSION: 1. No acute cardiopulmonary findings. 2. Old, healed posterior rib fractures bilaterally. 3. Appearance of the chest is similar compared to prior dated 12/29/17 Sandeep Allison MD Gall Bladder Ultrasound 01/02/18 0000 Signed Impressions: Service Date/Time: Tuesday, January 02, 2018 21:42 - CONCLUSION: 1. Gallbladder drain present. The gallbladder is decompressed. Thick wall again noted. 2. Decreased diameter of the common bile duct. Iain Barnett MD Objective Remarks GEN: Well-developed, well-nourished patient. No acute distress. Resting comfortably in bed. SKIN: No rashes, ecchymoses or lesions. Warm and dry. CV: Regular rate and rhythm without obvious murmurs. LUNGS: Clear to auscultation bilaterally. Normal respiratory effort. No wheezes , rales, rhonchi. GI: Soft, nondistended. Bowel sounds present. EXT: No edema. No calf tenderness. Patient is weak but lifts both lower extremities with max 4/5 strength and good effort NEURO/PSYCH: Awake, alert. Appropriate insight and judgment. Normal speech Procedures AICD interrogation 01/02 Medications and IVs Inpatient Medications Acetaminophen (Tylenol) 650 mg Q4H PRN PO TEMP > 100.4 Last administered on at 00:29; Start 01/02/18 at 20:30 Acetaminophen/ Hydrocodone Bitart ([place] 5-325 Mg) 1 tab Q6H PRN PO PAIN Last administered on 01/03/18at 07:14; Start 01/02/18 at 20:15; Stop 01/03/18 at 09:35 ; Status DC Amiodarone HCl (Cordarone) 200 mg DAILY PO Last administered on 01/04/18 08:49 ; Start 01/03/18 at 09:00 Amiodarone HCl 450 mg/Sodium Chloride 250 ml @ 33 mls/hr Q7H35M IV Last administered on 01/03/18at 05:55; Start 01/02/18 at 18:45; Stop 01/03/18 at 10:10 ; Status DC Amlodipine Besylate (Norvasc) 5 mg DAILY PO Last administered on 01/04/18 08: 49; Start 01/03/18 at 09:00 Apixaban (Eliquis) 5 mg BID PO Last administered on 01/04/18 08:50; Start at 21:00 Aspirin (Aspirin Chew) 81 mg DAILY PO Last administered on 01/04/18 08:48; Start 01/03/18 at 09:00 Atorvastatin Calcium (Lipitor) 40 mg HS PO Last administered on 01/03/18at 21:47 ; Start 01/03/18 at 21:00 Bisacodyl (Dulcolax Supp) 10 mg DAILY PRN RECTAL SEVERE CONSITIPATION; Start at 20:30 Carvedilol (Coreg) 12.5 mg DAILY PO Last administered on 01/04/18at 08:49; Start 01/03/18 at 09:00 Divalproex Sodium (Depakote Dr) 500 mg TID PO Last administered on 01/04/18at 08 :49; Start 01/03/18 at 09:00 Duloxetine HCl (Cymbalta Dr) 60 mg DAILY PO Last administered on 01/04/18at 08: 49; Start 01/03/18 at 09:00 Enalaprilat (Vasotec Inj) 1.25 mg Q6H PRN IV PUSH SBP> OR = 180, DBP> OR = 100 ; Start 01/02/18 at 20:15 Furosemide (Lasix) 40 mg DAILY PO ; Start 01/03/18 at 09:00; Status Future Hold Gabapentin (Neurontin) 300 mg TID PO Last administered on 01/04/18at 08:48; Start 01/03/18 at 09:00 Lactulose (Lactulose Liq) 30 ml DAILY PRN PO SEVERE CONSITIPATION; Start at 20:30 Lisinopril (Prinivil) 10 mg DAILY PO Last administered on 01/04/18at 08:49; Start 01/03/18 at 09:00 Magnesium Hydroxide (Milk Of Magnesia Liq) 30 ml Q12H PRN PO Mild constipation ; Start 01/02/18 at 20:30 Naloxone HCl (Narcan Inj) 0.4 mg UNSCH PRN IV PUSH SEE LABEL COMMENTS; Start at 20:30 Ondansetron HCl (Zofran Inj) 4 mg Q6H PRN IV PUSH NAUSEA Last administered on at 21:45; Start 01/03/18 at 20:30 Potassium Chloride (KCl) 20 meq DAILY PO Last administered on 01/04/18at 08:49; Start 01/03/18 at 09:00 Quetiapine Fumarate (SEROquel) 25 mg BID@09,12 PO Last administered on at 08:49; Start 01/03/18 at 09:00 Senna/Docusate Sodium (Lillian-Colace) 1 tab BID PO ; Start 01/02/18 at 21:00 Sennosides (Senokot) 17.2 mg Q12H PRN PO Moderate constipation; Start 01/02/18 at 20:30 Sodium Chloride (NS Flush) 2 ml UNSCH PRN IVF FLUSH AFTER USING IV ACCESS; Start 01/02/18 at 18:30 Spironolactone (Aldactone) 25 mg BID@,18 PO Last administered on 01/04/18at 08 :49; Start 01/03/18 at 09:00 Tramadol HCl (Ultram) 50 mg Q6H PRN PO PAIN 1-10 Last administered on at 08:51; Start 01/03/18 at 09:45 Urinary Catheter: No Vascular Central Line Catheter: No A/P Assessment and Plan 72-year-old male with complicated medical history including CAD with recent stent placement on aspirin/Plavix/Eliquis, CHF, atrial fibrillation, hyperlipidemia, hypertension, recent cholecystitis with indwelling drain who presents to the ED after AICD fired at home on 01/02. AICD interrogated in the ED and noted to have fired. Patient noted to have intermittent ventricular tachycardia which is currently asymptomatic, suspect etiology of arrhythmia is that patient has not been on any of his medications for 3-4 days. Admitted to [facility] for close telemetry monitoring. Cardiology consulted. Patient was admitted 01/02 on an amiodarone drip which was discontinued . Rate controlled and drip discontinued on 01/03 with PO amiodarone restarted at home dose Discharge Planning Patient currently rate controlled on home medications, improved dramatically since admission on 01/02. However will require PT at rehab per evaluation, needs one more midnight, anticipate discharge on 01/05. Case management consulted and [id number] in chart Problem List: (1) Ventricular tachycardia ICD Codes: I47.2 - Ventricular tachycardia Status: Acute Plan: Admitted to inpatient [facility] with continuous telemetry and amiodarone drip on 01/02. 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, he understands he needs to follow-up closely with him after discharge ACS workup negative No significant events on telemetry since admission (2) Acute on chronic systolic (congestive) heart failure ICD Codes: I50.23 - Acute on chronic systolic (congestive) heart failure Status: Chronic Plan: Patient has chronic heart failure with reduced EF with most recent EF documented October 2017 to be 25-30% with notable diffuse hypokinesis CXR on admission show no acute cardiopulmonary findings and no evidence of pulmonary congestion * Restart patient's home medications to include Spironolactone 25 mg twice daily , aspirin 81 mg daily, lisinopril 10 mg daily, carvedilol 12.5 mg daily. Patient also on amlodipine 5 mg daily. * Holding furosemide 40 mg on 01/03 as patient does not appear to be in fluid overload and patient complains of urinary frequency while on this medication * Daily weights: 1 kg increase since admission, suspect different scales used, will monitor * Consider giving one time dose of furosemide 40 mg if patient showing signs of fluid overload, shortness of breath (3) HTN (hypertension) ICD Codes: I10 - Essential (primary) hypertension Status: Chronic Plan: Hypertensive emergency noted on admission, resolved since restarting home medications Hospital course: Patient noted to be hypertensive during ED evaluation. Patient has not been on his blood pressure medications for more than 3 days. Restarted carvedilol, amlodipine, lisinopril, Spironolactone as noted above (4) Atrial fibrillation ICD Codes: I48.91 - Unspecified atrial fibrillation Status: Chronic Plan: Patient has chronic A. fib on Eliquis, aspirin, Plavix. We will continue these meds at this time. He is noted to have had stent placement on December 18. Monitor on telemetry (5) Cholecystitis ICD Codes: K81.9 - Cholecystitis, unspecified Status: Acute Plan: IR consulted, no signs of infection with drain currently, anticipate removal 01/05 Will consult with general surgery if indicated Hospital Course: Patient with acute persistent cholecystitis for which patient had approximately 2 week hospital stay in late November, was just discharged on December 26. He was a poor surgical candidate given heart failure and cholecystitis was serially monitored by imaging. IR initially placed percutaneous angela drain on 12/14 under fluoroscopy and ultrasound. IR replaced angela tube on 12/20 after patient pulled it out. He is noted to have been seen in the ED on 12/29 with vague symptoms and negative lab workup. He was noted to have been discharged on Augmentin 5 days but this course was completed. Lipase within normal limits on admission Gallbladder ultrasound showing decompressed gallbladder, decreased diameter of common bile duct (6) Anemia ICD Codes: D64.9 - Anemia, unspecified Status: Acute Plan: Noted. Suspect this is related to chronic disease. MCV within normal limits. Hemoglobin of 10.4 on admission, 9.1 on 01/03 Will monitor, continue workup as indicated (7) Hyperlipidemia ICD Codes: E78.5 - Hyperlipidemia, unspecified Status: Chronic Plan: Patient was discharged on atorvastatin 40 mg nightly at time of last discharge, will continue this. (8) Seizure disorder ICD Codes: G40.909 - Epilepsy, unspecified, not intractable, without status epilepticus Status: Chronic Plan: Patient appears to have a chronic seizure disorder given he is on valproate. He is also on gabapentin but this may be for neuropathy. We will continue home dose valproate DR 500 mg PO 3 times daily and gabapentin 300 mg p.o. 3 times daily. Patient will be placed on seizure precaution and fall precautions, currently OOB with assistance (9) Depression ICD Codes: F32.9 - Major depressive disorder, single episode, unspecified Status: Chronic Plan: Patient was a history of depression on Seroquel 25 mg twice daily and duloxetine 60 mg daily. Will continue these. Patient does deny any psychiatric history (10) BPH (benign prostatic hyperplasia) ICD Codes: N40.0 - Benign prostatic hyperplasia without lower urinary tract symptoms Status: Chronic Plan: Patient is making urine but complains of difficulty, i.e. straining. Will restart home dose Flomax 0.8 mg at bedtime (11) Fluids/Electrolytes/Nutrition/Prophylaxis Status: Acute Plan: Fluids: tolerating PO Electrolytes: monitor and replete as needed Nutrition: heart-healthy diet DVT Prophylaxis: Early ambulation. On aspirin, Plavix, Eliquis. GI Prophylaxis: None indicated PRN anti-HTN: Vasotec 1.25 mg IV every 6 hours PRN for SBP > 180 and/or DBP > 100 PRN for pain - tramadol 50 mg by mouth every 6 hours as needed for pain 1-10 ( home medication), may consider adding IV Tylenol if indicated Problem Qualifiers (1) HTN (hypertension): Qualified Codes: I10 - Essential (primary) hypertension (2) Atrial fibrillation: Qualified Codes: I48.2 - Chronic atrial fibrillation (3) Anemia: Qualified Codes: D64.9 - Anemia, unspecified (4) Depression: Qualified Codes: F33.42 - Major depressive disorder, recurrent, in full remission (5) BPH (benign prostatic hyperplasia): Qualified Codes: N40.1 - Benign prostatic hyperplasia with lower urinary tract symptoms; R39.16 - Straining to void Pily Walker MD Jan 04, 2018 08:54
[2018-01-04] MEDS: DOCUSATE SODIUM 50 MG/SENNA 8.6 MG TAB PO SCH ×2 (08:59→21:00)
[2018-01-04] MEDS: ACETAMINOPHEN 325 MG TAB PO PRN (13:48)
[2018-01-04 14:23] LABS: AUTOMATED NEUTROPHIL # 5.5 TH/MM3 (1.8-7.7); BASOPHIL % 0.4 % (0.0-2.0); EOSINOPHIL # 0.3 TH/MM3 (0-0.4); EOSINOPHIL % 3.4 % (0.0-4.0); HEMATOCRIT 27.3 % (39.0-51.0); HEMOGLOBIN 9.3 GM/DL (13.0-17.0); LYMPH % 29.3 % (9.0-44.0); LYMPHOCYTE # 2.7 TH/MM3 (1.0-4.8); MEAN CELL VOLUME 96.5 FL (80.0-100.0); MEAN CORPUSCULAR HEMOGLOBIN 32.9 PG (27.0-34.0); MEAN CORPUSCULAR HGB CONC 34.1 % (32.0-36.0); MONO % 8.8 % (0.0-8.0); MONOCYTE # 0.8 TH/MM3 (0-0.9); NEUT % 58.1 % (16.0-70.0); PLATELET COUNT 235 TH/MM3 (150-450); RED BLOOD COUNT 2.83 MIL/MM3 (4.50-5.90); RED CELL DISTRIBUTION WIDTH 15.6 % (11.6-17.2); WHITE BLOOD COUNT 9.4 TH/MM3 (4.0-11.0)
[2018-01-04 15:01] LABS: BICARBONATE 25.2 MEQ/L (21.0-32.0); CALCIUM 8.4 MG/DL (8.5-10.1); CREATININE 1.12 MG/DL (0.60-1.30)
--- NOTE | 2018-01-04 19:46 | PD.CARD.PN ---
Subjective Subjective Remarks Feeling ok today, no Vtachy, Feeling nausea. Objective Medications Current Medications Medications (Trade) Dose Ordered Sig/Eliot Route Start Time Stop Time Status Last Admin (NS Flush) 2 ml UNSCH PRN IVF 01/02/18 16:15 01/03/18 21:46 (NS Flush) 2 ml UNSCH PRN IVF 01/02/18 18:30 (Vasotec Inj) 1.25 mg Q6H PRN IV PUSH 01/02/18 20:15 (Norvasc) 5 mg DAILY PO 01/03/18 09:00 01/04/18 08:49 (Eliquis) 5 mg BID PO 01/02/18 21:00 01/04/18 08:50 (Aspirin Chew) 81 mg DAILY PO 01/03/18 09:00 01/04/18 08:48 (Coreg) 12.5 mg DAILY PO 01/03/18 09:00 01/04/18 08:49 (Depakote Dr) 500 mg TID PO 01/03/18 09:00 01/04/18 17:58 (Cymbalta Dr) 60 mg DAILY PO 01/03/18 09:00 01/04/18 08:49 (Lasix) 40 mg DAILY PO 01/03/18 09:00 Future Hold (Neurontin) 300 mg TID PO 01/03/18 09:00 01/04/18 17:58 (Prinivil) 10 mg DAILY PO 01/03/18 09:00 01/04/18 08:49 (KCl) 20 meq DAILY PO 01/03/18 09:00 01/04/18 08:49 (SEROquel) 25 mg BID@09,12 PO 01/03/18 09:00 01/04/18 13:48 (Aldactone) 25 mg BID@,18 PO 01/03/18 09:00 01/04/18 17:58 (Tylenol) 650 mg Q4H PRN PO 01/02/18 20:30 01/04/18 13:48 (Narcan Inj) 0.4 mg UNSCH PRN IV PUSH 01/02/18 20:30 (Lillian-Colace) 1 tab BID PO 01/02/18 21:00 (Milk Of Magnesia Liq) 30 ml Q12H PRN PO 01/02/18 20:30 (Senokot) 17.2 mg Q12H PRN PO 01/02/18 20:30 (Dulcolax Supp) 10 mg DAILY PRN RECTAL 01/02/18 20:30 (Lactulose Liq) 30 ml DAILY PRN PO 01/02/18 20:30 (Cordarone) 200 mg DAILY PO 01/03/18 09:00 01/04/18 08:49 (Lipitor) 40 mg HS PO 01/03/18 21:00 01/03/18 21:47 (Ultram) 50 mg Q6H PRN PO 01/03/18 09:45 01/04/18 15:46 (Zofran Inj) 4 mg Q6H PRN IV PUSH 01/03/18 20:30 01/03/18 21:45 (Flomax) 0.8 mg HS PO 01/04/18 21:00 Vital Signs / I&O Vital Signs Date Time Temp Pulse Resp B/P (MAP) Pulse Ox O2 Delivery O2 Flow Rate FiO2 01/04/18 18:00 54 01/04/18 17:00 54 01/04/18 16:00 56 01/04/18 15:40 98.1 58 16 122/65 (84) 94 01/04/18 15:00 58 01/04/18 14:00 60 01/04/18 13:00 58 01/04/18 12:36 98.2 63 20 113/54 (73) 96 01/04/18 12:00 64 01/04/18 11:00 61 01/04/18 10:00 64 01/04/18 09:00 58 01/04/18 08:00 56 01/04/18 08:00 98.0 62 16 119/69 (86) 97 01/04/18 07:00 74 01/04/18 06:00 56 01/04/18 05:00 64 01/04/18 04:00 54 01/04/18 04:00 62 14 112/58 (76) 95 01/04/18 03:00 53 01/04/18 02:00 54 01/04/18 01:00 54 01/04/18 00:25 97.9 59 16 85/41 (56) 96 01/04/18 00:00 56 01/03/18 23:00 58 01/03/18 22:00 54 01/03/18 21:40 96 21 01/03/18 21:00 52 01/03/18 20:00 51 01/03/18 19:49 98.0 54 18 90/48 (62) 96 I/O 01/03/18 01/03/18 01/03/18 01/04/18 01/04/18 01/04/18 07:00 15:00 23:00 07:00 15:00 23:00 Intake Total 490 ml 480 ml 360 ml 480 ml Output Total 350 ml 550 ml 600 ml 350 ml Balance 140 ml -70 ml -240 ml 130 ml Intake Oral 240 ml 480 ml 360 ml 480 ml IV Total 250 ml 0 ml Output Urine Total 350 ml 550 ml 600 ml 350 ml # Voids 4 # Bowel Movements 0 0 Physical Exam GENERAL: This is a well-nourished, well-developed male patient lying in bed in no apparent distress. SKIN: No rashes, ecchymoses or lesions. Cool and dry. HEAD: Atraumatic. Normocephalic. No temporal or scalp tenderness. EYES: Pupils equal round and reactive. Extraocular motions intact. No scleral icterus. No injection or drainage. ENT: Nose without bleeding or purulent discharge. Throat without erythema, tonsillar hypertrophy or exudate. Uvula midline. Airway patent. NECK: Trachea midline. No JVD or lymphadenopathy. Supple, nontender, no meningeal signs. CARDIOVASCULAR: Regular rate and rhythm without murmurs, gallops, or rubs. RESPIRATORY: Clear to auscultation. Breath sounds equal bilaterally. No wheezes , rales, or rhonchi. GASTROINTESTINAL: Gallbladder drain in place and right upper quadrant with skin showing no signs of infection or breakdown. Dressing is dated 12/25/17. The drainage bag has green fluid of less than 50 cc. Abdomen soft, obese. Normal bowel sounds. No hepato-splenomegaly, or palpable masses. No guarding. MUSCULOSKELETAL: Extremities without clubbing, cyanosis, or edema. No joint tenderness, effusion, or edema noted. No calf tenderness. NEUROLOGICAL: Awake and alert. Cranial nerves II through XII grossly intact. Motor and sensory grossly within normal limits. Five out of 5 muscle strength in UEs and LEs. Normal speech. Laboratory Laboratory Tests Test 01/04/18 13:41 White Blood Count 9.4 TH/MM3 Red Blood Count 2.83 MIL/MM3 Hemoglobin 9.3 GM/DL Hematocrit 27.3 % Mean Corpuscular Volume 96.5 FL Mean Corpuscular Hemoglobin 32.9 PG Mean Corpuscular Hemoglobin Concent 34.1 % Red Cell Distribution Width 15.6 % Platelet Count 235 TH/MM3 Mean Platelet Volume 7.0 FL Neutrophils (%) (Auto) 58.1 % Lymphocytes (%) (Auto) 29.3 % Monocytes (%) (Auto) 8.8 % Eosinophils (%) (Auto) 3.4 % Basophils (%) (Auto) 0.4 % Neutrophils # (Auto) 5.5 TH/MM3 Lymphocytes # (Auto) 2.7 TH/MM3 Monocytes # (Auto) 0.8 TH/MM3 Eosinophils # (Auto) 0.3 TH/MM3 Basophils # (Auto) 0.0 TH/MM3 CBC Comment DIFF FINAL Differential Comment Blood Urea Nitrogen 28 MG/DL Creatinine 1.12 MG/DL Random Glucose 97 MG/DL Calcium Level 8.4 MG/DL Sodium Level 143 MEQ/L Potassium Level 4.9 MEQ/L Chloride Level 111 MEQ/L Carbon Dioxide Level 25.2 MEQ/L Anion Gap 7 MEQ/L Estimat Glomerular Filtration Rate 64 ML/MIN Assessment and Plan Problem List: (1) Ventricular tachycardia ICD Codes: I47.2 - Ventricular tachycardia Status: Acute (2) CHF (congestive heart failure) ICD Codes: I50.9 - Heart failure, unspecified (3) CAD (coronary artery disease) ICD Codes: I25.10 - Atherosclerotic heart disease of [place] coronary artery without angina pectoris (4) HTN (hypertension) ICD Codes: I10 - Essential (primary) hypertension Status: Chronic (5) Hyperlipidemia ICD Codes: E78.5 - Hyperlipidemia, unspecified Status: Chronic (6) Cholecystitis ICD Codes: K81.9 - Cholecystitis, unspecified Status: Acute Assessment and Plan 1. Ventricular tachycardia, restored to sinus rhythm after appropriate ICD shock. Most likely due to lack of medication because he was not taking them. Restart home medications which include amiodarone 200 mg daily, IV Amiodarone stopped this AM Negative serial cardiac enzymes, EKG First EKG showed sinus rhythm Patient can be discharged from cardiology standpoint. Follow up with Dr. Livingston in 1-2 weeks 2. LVSD, acute on chronic CHF, known LVEF 25-30% by Echo 10/2017. ICD implanted 3 -4 years ago, Resume Carvedilol, Lisinopril, Spironolactone, and lasix. Educated patient importance of compliant on medications 3. CAD, hx of CABG, recent RCA stenting with BMS. \ Continue Aspirin and Plavix. 4. HTN. Resume home medications, see above. 5. hx of afib, Resume Eliquis 6. cholecystitis, was believed a poor surgical candidate given heart failure and cholecystitis was seriously monitored by imaging. IR initially placed percutaneous angela drain on 12/14 under fluoroscopy and ultrasound. IR replaced angela tube on 12/20 after patient pulled it out. He is noted to have been seen in the ED on 12/29 with vague symptoms and negative lab workup. OK to proceed GB surgery from cardiology standpoint. 7. Hyperlipidemia. Patient was discharged on atorvastatin 40 mg nightly at time of last discharge, will continue this. 8. hx of chronic seizure disorder, on valproate. Problem Qualifiers (1) HTN (hypertension): Qualified Codes: I10 - Essential (primary) hypertension Wing Francine Hart MD Jan 04, 2018 19:46
[2018-01-04] MEDS ORDERED: TAMSULOSIN HCL 0.4 MG CAP PO SCH (21:00)
[2018-01-04] MEDS: ATORVASTATIN 40 MG TAB PO SCH (22:03)
[2018-01-04] MEDS: SODIUM CHLORIDE 0.9% FLUSH 10 ML FLUSH IVF PRN (22:05)
[2018-01-05] VITALS (21 sets, daily range): BP systolic 105–140; BP diastolic 49–63; PULSE 54–78; RESP 16–18; TEMP 97.8–97.9; O2SAT 93–98
[2018-01-05] MEDS: DOCUSATE SODIUM 50 MG/SENNA 8.6 MG TAB PO SCH ×2 (09:00→09:15)
[2018-01-05] MEDS: CARVEDILOL 12.5 MG TAB PO SCH (09:14)
[2018-01-05] MEDS: DULoxetine HCl DR 60 MG CAP PO SCH (09:14)
[2018-01-05] MEDS: LISINOPRIL 10 MG TAB PO SCH (09:14)
[2018-01-05] MEDS: SPIRONOLACTONE 25 MG TAB PO SCH ×2 (09:15→17:09)
[2018-01-05] MEDS: ASPIRIN 81 MG CHEW TAB PO SCH (09:15)
[2018-01-05] MEDS: APIXABAN 5 MG TABLET PO SCH (09:15)
[2018-01-05] MEDS: QUEtiapine FUMARATE 25 MG TAB PO SCH ×2 (09:15→13:51)
[2018-01-05] MEDS: AMIODARONE 200 MG TAB PO SCH (09:15)
[2018-01-05] MEDS: DIVALPROEX DR 500 MG TABEC PO SCH ×3 (09:15→17:09)
[2018-01-05] MEDS: GABAPENTIN 300 MG CAP PO SCH ×3 (09:15→17:09)
[2018-01-05] MEDS: POTASSIUM CHLORIDE 20 MEQ CONTROLLED RELEASE TAB PO SCH (09:15)
[2018-01-05] MEDS: amLODIPine BESYLATE 5 MG TAB PO SCH (09:15)
[2018-01-05] MEDS: traMADol HCL 50 MG TAB PO PRN ×2 (09:25→15:50)
--- NOTE | 2018-01-05 09:49 | RADRPT ---
EXAM DATE/TIME: 01/02/2018 00:00 Consult: Interventional radiology has been consulted regarding potential removal of patient's cholecystostomy drain. Drain was placed originally approximately 11 days ago. Ideally, cholecystostomy catheters shou ld remain in place to allow for tract maturity for at least 3 weeks. Patient is reportedly now a surg ical candidate and surgical consultation is pending regarding cholecystectomy. Dino Coyne MD on January 05, 2018 at 9:38 Board Certified Radiologist. This report was verified electronically.
--- NOTE | 2018-01-05 10:15 | HHI.FPPN ---
Subjective Remarks Patient was seen and examined this morning. No acute pulmonary events and no complaints this morning. Denying chest pain, shortness of breath, nausea, vomiting. Last episode of vomiting was yesterday early afternoon and he has eaten multiple medicines and with no problem. Palliative care consulted to further delineate goals of care. He is of note to have continuation of his RUQ drain for another 10-14 days per IR verbal discussion to this morning. General surgery consult at this morning. Plavix was notably held on admission, patient continuing aspirin and Eliquis at this time. (Pily Walker MD) Objective Vitals Vital Signs Date Time Temp Pulse Resp B/P (MAP) Pulse Ox O2 Delivery O2 Flow Rate FiO2 01/05/18 08:48 93 21 01/05/18 06:00 64 01/05/18 05:00 64 01/05/18 04:00 72 01/05/18 03:08 61 16 140/61 (87) 97 01/05/18 03:00 61 01/05/18 02:00 60 01/05/18 01:00 54 01/05/18 00:00 62 01/04/18 23:00 56 16 111/56 (74) 98 01/04/18 23:00 56 01/04/18 22:00 54 01/04/18 21:00 54 01/04/18 20:00 54 01/04/18 19:00 54 01/04/18 19:00 97.0 54 16 98/51 (67) 97 01/04/18 18:00 54 01/04/18 17:00 54 01/04/18 16:00 56 01/04/18 15:40 98.1 58 16 122/65 (84) 94 01/04/18 15:00 58 01/04/18 14:00 60 01/04/18 13:00 58 01/04/18 12:36 98.2 63 20 113/54 (73) 96 01/04/18 12:00 64 01/04/18 11:00 61 I/O 01/04/18 01/04/18 01/04/18 01/05/18 01/05/18 01/05/18 07:00 15:00 23:00 07:00 15:00 23:00 Intake Total 360 ml 480 ml 240 ml Output Total 600 ml 350 ml 600 ml Balance -240 ml 130 ml -360 ml Intake Oral 360 ml 480 ml 240 ml IV Total 0 ml Output Urine Total 600 ml 350 ml 500 ml Drainage Total 100 ml # Bowel Movements 0 0 (Pily Walker MD) Result Diagram: 01/04/18 1341 01/04/18 1341 Imaging Last Impressions Chest X-Ray 01/02/18 1601 Signed Impressions: Service Date/Time: Tuesday, January 02, 2018 16:47 - CONCLUSION: 1. No acute cardiopulmonary findings. 2. Old, healed posterior rib fractures bilaterally. 3. Appearance of the chest is similar compared to prior dated 12/29/17 Sandeep Allison MD Gall Bladder Ultrasound 01/02/18 0000 Signed Impressions: Service Date/Time: Tuesday, January 02, 2018 21:42 - CONCLUSION: 1. Gallbladder drain present. The gallbladder is decompressed. Thick wall again noted. 2. Decreased diameter of the common bile duct. Iain Barnett MD Objective Remarks GEN: Well-developed, well-nourished patient. No acute distress. Resting comfortably in bed. SKIN: No rashes, ecchymoses or lesions. Warm and dry. CV: Regular rate and rhythm without obvious murmurs. LUNGS: Clear to auscultation bilaterally. Normal respiratory effort. No wheezes , rales, rhonchi. GI: Soft, nondistended. Bowel sounds present. RUQ drain in place, draining small amount of bilious fluid without blood. Dressing site is clean and dry dated 12/25/2017. EXT: No edema. No calf tenderness. Patient is weak but lifts both lower extremities with max 4/5 strength and good effort. NEURO/PSYCH: Awake, alert. Appropriate insight and judgment. Normal speech Procedures AICD interrogation 01/02 Medications and IVs Inpatient Medications Acetaminophen (Tylenol) 650 mg Q4H PRN PO TEMP > 100.4 Last administered on at 13:48; Start 01/02/18 at 20:30 Acetaminophen/ Hydrocodone Bitart ([place] 5-325 Mg) 1 tab Q6H PRN PO PAIN Last administered on 01/03/18at 07:14; Start 01/02/18 at 20:15; Stop 01/03/18 at 09:35 ; Status DC Amiodarone HCl (Cordarone) 200 mg DAILY PO Last administered on 01/05/18 09:15 ; Start 01/03/18 at 09:00 Amiodarone HCl 450 mg/Sodium Chloride 250 ml @ 33 mls/hr Q7H35M IV Last administered on 01/03/18at 05:55; Start 01/02/18 at 18:45; Stop 01/03/18 at 10:10 ; Status DC Amlodipine Besylate (Norvasc) 5 mg DAILY PO Last administered on 01/05/18at 09: 15; Start 01/03/18 at 09:00 Apixaban (Eliquis) 5 mg BID PO Last administered on 01/05/18 09:15; Start at 21:00 Aspirin (Aspirin Chew) 81 mg DAILY PO Last administered on 01/05/18 09:15; Start 01/03/18 at 09:00 Atorvastatin Calcium (Lipitor) 40 mg HS PO Last administered on 01/04/18at 22:03 ; Start 01/03/18 at 21:00 Bisacodyl (Dulcolax Supp) 10 mg DAILY PRN RECTAL SEVERE CONSITIPATION; Start at 20:30 Carvedilol (Coreg) 12.5 mg DAILY PO Last administered on 01/05/18 09:14; Start 01/03/18 at 09:00 Divalproex Sodium (Depakote Dr) 500 mg TID PO Last administered on 01/05/18at 09 :15; Start 01/03/18 at 09:00 Duloxetine HCl (Cymbalta Dr) 60 mg DAILY PO Last administered on 01/05/18at 09: 14; Start 01/03/18 at 09:00 Enalaprilat (Vasotec Inj) 1.25 mg Q6H PRN IV PUSH SBP> OR = 180, DBP> OR = 100 ; Start 01/02/18 at 20:15 Furosemide (Lasix) 40 mg DAILY PO ; Start 01/03/18 at 09:00; Status Future Hold Gabapentin (Neurontin) 300 mg TID PO Last administered on 01/05/18at 09:15; Start 01/03/18 at 09:00 Lactulose (Lactulose Liq) 30 ml DAILY PRN PO SEVERE CONSITIPATION; Start at 20:30 Lisinopril (Prinivil) 10 mg DAILY PO Last administered on 01/05/18at 09:14; Start 01/03/18 at 09:00 Magnesium Hydroxide (Milk Of Magnzahraa Liq) 30 ml Q12H PRN PO Mild constipation ; Start 01/02/18 at 20:30 Naloxone HCl (Narcan Inj) 0.4 mg UNSCH PRN IV PUSH SEE LABEL COMMENTS; Start at 20:30 Ondansetron HCl (Zofran Inj) 4 mg Q6H PRN IV PUSH NAUSEA Last administered on at 21:45; Start 01/03/18 at 20:30 Potassium Chloride (KCl) 20 meq DAILY PO Last administered on 01/05/18at 09:15; Start 01/03/18 at 09:00 Quetiapine Fumarate (SEROquel) 25 mg BID@09,12 PO Last administered on at 09:15; Start 01/03/18 at 09:00 Senna/Docusate Sodium (Lillian-Colace) 1 tab BID PO ; Start 01/02/18 at 21:00 Sennosides (Senokot) 17.2 mg Q12H PRN PO Moderate constipation; Start 01/02/18 at 20:30 Sodium Chloride (NS Flush) 2 ml UNSCH PRN IVF FLUSH AFTER USING IV ACCESS; Start 01/02/18 at 18:30 Spironolactone (Aldactone) 25 mg BID@,18 PO Last administered on 01/05/18at 09 :15; Start 01/03/18 at 09:00 Tamsulosin HCl (Flomax) 0.8 mg HS PO Last administered on 01/04/18at 22:03; Start 01/04/18 at 21:00 Tramadol HCl (Ultram) 50 mg Q6H PRN PO PAIN 1-10 Last administered on at 09:25; Start 01/03/18 at 09:45 (Pily Walker MD) Urinary Catheter: No (Pily Walker MD) Vascular Central Line Catheter: No (Pily Walker MD) A/P Assessment and Plan 72-year-old male with complicated medical history including CAD with recent stent placement on aspirin/Plavix/Eliquis, CHF, atrial fibrillation, hyperlipidemia, hypertension, recent cholecystitis with indwelling drain who presents to the ED after AICD fired at home on 01/02. AICD interrogated in the ED and noted to have fired. Patient noted to have intermittent ventricular tachycardia which is currently asymptomatic, suspect etiology of arrhythmia is that patient has not been on any of his medications for 3-4 days. Admitted to [facility] for close telemetry monitoring. Cardiology consulted. Patient was admitted 01/02 on an amiodarone drip which was discontinued 01/03. Rate controlled and drip discontinued on 01/03 with PO amiodarone restarted at home dose. No cardiac events on telemetry reported. Discharge Planning Patient currently rate-controlled on home medications, improved dramatically since admission on 01/02. However will require PT at rehab per evaluation, needs one more midnight, anticipate discharge on 01/05. Case management consulted and 3008 in chart. (Pily Walker MD) Attending Attestation Patient seen and examined. Case reviewed and discussed with the resident team. He is very comfortable, and has indicated that he would like to go to rehabilitation in either [place] or [place]. Agree with plan of care as discussed with me and documented in the resident note. (Shawanda Junior MD) Problem List: (1) Ventricular tachycardia ICD Codes: I47.2 - Ventricular tachycardia Status: Acute Plan: Admitted to inpatient [facility] with continuous telemetry and amiodarone drip on 01/02. Rate controlled shortly after admission. Consult cardiology, appreciate recommendations: Restart home medications at home doses to include amiodarone 200 mg daily. 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 ACS workup negative. No significant events on telemetry since admission. (2) Acute on chronic systolic (congestive) heart failure ICD Codes: I50.23 - Acute on chronic systolic (congestive) heart failure Status: Chronic Plan: Patient has chronic heart failure with reduced EF with most recent EF documented October 2017 to be 25-30% with notable diffuse hypokinesis CXR on admission show no acute cardiopulmonary findings and no evidence of pulmonary congestion * Restart patient's home medications to include Spironolactone 25 mg twice daily , aspirin 81 mg daily, lisinopril 10 mg daily, carvedilol 12.5 mg daily. Patient also on amlodipine 5 mg daily. * Holding furosemide 40 mg on 01/03 as patient does not appear to be in fluid overload and patient complains of urinary frequency while on this medication * Daily weights: 1 kg increase since admission, suspect different scales used, will monitor * Consider giving one time dose of furosemide 40 mg if patient showing signs of fluid overload, shortness of breath (3) HTN (hypertension) ICD Codes: I10 - Essential (primary) hypertension Status: Chronic Plan: Hypertensive emergency noted on admission, resolved since restarting home medications. Hospital course: Patient noted to be hypertensive during ED evaluation. Patient had not been on his blood pressure medications for more than 3 days. Restarted carvedilol, amlodipine, lisinopril, spironolactone as noted above. (4) Atrial fibrillation ICD Codes: I48.91 - Unspecified atrial fibrillation Status: Chronic Plan: Patient has chronic A. fib on Eliquis, aspirin, Plavix. Plavix not restarted at admission. We will continue all three meds at time of discharge because he was discharged on them December 26 and he is noted to have had stent placement on December 18. Monitor on telemetry (5) Cholecystitis ICD Codes: K81.9 - Cholecystitis, unspecified Status: Acute Plan: IR consulted, no signs of infection with drain currently, anticipate removal 01/05. General surgery consulted. Hospital Course: Patient with acute persistent cholecystitis for which patient had approximately 2 week hospital stay in late November, was just discharged on December 26. He was a poor surgical candidate given heart failure and cholecystitis was serially monitored by imaging. IR initially placed percutaneous angela drain on 12/14 under fluoroscopy and ultrasound. IR replaced angela tube on 12/20 after patient pulled it out. He is noted to have been seen in the ED on 12/29 with vague symptoms and negative lab workup. He was noted to have been discharged on Augmentin 5 days but this course was completed. Lipase within normal limits on admission. Gallbladder ultrasound showing decompressed gallbladder, decreased diameter of common bile duct. (6) Anemia ICD Codes: D64.9 - Anemia, unspecified Status: Acute Plan: Noted. Suspect this is related to chronic disease. MCV within normal limits. Hemoglobin of 10.4 on admission, 9.3 on 01/04/18. Will monitor, continue workup as indicated. (7) Hyperlipidemia ICD Codes: E78.5 - Hyperlipidemia, unspecified Status: Chronic Plan: Patient was discharged on atorvastatin 40 mg nightly at time of last discharge, will continue this. (8) Seizure disorder ICD Codes: G40.909 - Epilepsy, unspecified, not intractable, without status epilepticus Status: Chronic Plan: Patient appears to have a chronic seizure disorder given he is on valproate. He is also on gabapentin but this may be for neuropathy. We will continue home dose valproate DR 500 mg PO 3 times daily and gabapentin 300 mg p.o. 3 times daily. Patient will be placed on seizure precaution and fall precautions, currently OOB with assistance (9) Depression ICD Codes: F32.9 - Major depressive disorder, single episode, unspecified Status: Chronic Plan: Patient was a history of depression on Seroquel 25 mg twice daily and duloxetine 60 mg daily. Will continue these. Patient does deny any psychiatric history (10) BPH (benign prostatic hyperplasia) ICD Codes: N40.0 - Benign prostatic hyperplasia without lower urinary tract symptoms Status: Chronic Plan: Restarted home dose Flomax 0.8 mg at bedtime, making urine (11) Fluids/Electrolytes/Nutrition/Prophylaxis Status: Acute Plan: Fluids: tolerating PO Electrolytes: monitor and replete as needed Nutrition: heart-healthy diet DVT Prophylaxis: Early ambulation. On aspirin, Eliquis. Plavix held. GI Prophylaxis: None indicated PRN anti-HTN: Vasotec 1.25 mg IV every 6 hours PRN for SBP > 180 and/or DBP > 100 PRN for pain - tramadol 50 mg by mouth every 6 hours as needed for pain 1-10 ( home medication), may consider adding IV Tylenol if indicated. (Pily Walker MD) Problem Qualifiers (1) HTN (hypertension): Qualified Codes: I10 - Essential (primary) hypertension (2) Atrial fibrillation: Qualified Codes: I48.2 - Chronic atrial fibrillation (3) Anemia: Qualified Codes: D64.9 - Anemia, unspecified (4) Depression: Qualified Codes: F33.42 - Major depressive disorder, recurrent, in full remission (5) BPH (benign prostatic hyperplasia): Qualified Codes: N40.1 - Benign prostatic hyperplasia with lower urinary tract symptoms; R39.16 - Straining to void Pily Walker MD Jan 05, 2018 10:15 Shawanda Junior MD Jan 05, 2018 12:23
--- NOTE | 2018-01-05 12:54 | PD.CARD.PN ---
Subjective Subjective Remarks alert in nad Objective Medications Current Medications Medications (Trade) Dose Ordered Sig/Eliot Route Start Time Stop Time Status Last Admin (NS Flush) 2 ml UNSCH PRN IVF 01/02/18 16:15 01/04/18 22:05 (NS Flush) 2 ml UNSCH PRN IVF 01/02/18 18:30 (Vasotec Inj) 1.25 mg Q6H PRN IV PUSH 01/02/18 20:15 (Norvasc) 5 mg DAILY PO 01/03/18 09:00 01/05/18 09:15 (Eliquis) 5 mg BID PO 01/02/18 21:00 01/05/18 09:15 (Aspirin Chew) 81 mg DAILY PO 01/03/18 09:00 01/05/18 09:15 (Coreg) 12.5 mg DAILY PO 01/03/18 09:00 01/05/18 09:14 (Depakote Dr) 500 mg TID PO 01/03/18 09:00 01/05/18 09:15 (Cymbalta Dr) 60 mg DAILY PO 01/03/18 09:00 01/05/18 09:14 (Lasix) 40 mg DAILY PO 01/03/18 09:00 Future Hold (Neurontin) 300 mg TID PO 01/03/18 09:00 01/05/18 09:15 (Prinivil) 10 mg DAILY PO 01/03/18 09:00 01/05/18 09:14 (KCl) 20 meq DAILY PO 01/03/18 09:00 01/05/18 09:15 (SEROquel) 25 mg BID@09,12 PO 01/03/18 09:00 01/05/18 09:15 (Aldactone) 25 mg BID@,18 PO 01/03/18 09:00 01/05/18 09:15 (Tylenol) 650 mg Q4H PRN PO 01/02/18 20:30 01/04/18 13:48 (Narcan Inj) 0.4 mg UNSCH PRN IV PUSH 01/02/18 20:30 (Lillian-Colace) 1 tab BID PO 01/02/18 21:00 (Milk Of Magnesia Liq) 30 ml Q12H PRN PO 01/02/18 20:30 (Senokot) 17.2 mg Q12H PRN PO 01/02/18 20:30 (Dulcolax Supp) 10 mg DAILY PRN RECTAL 01/02/18 20:30 (Lactulose Liq) 30 ml DAILY PRN PO 01/02/18 20:30 (Cordarone) 200 mg DAILY PO 01/03/18 09:00 01/05/18 09:15 (Lipitor) 40 mg HS PO 01/03/18 21:00 01/04/18 22:03 (Ultram) 50 mg Q6H PRN PO 01/03/18 09:45 01/05/18 09:25 (Zofran Inj) 4 mg Q6H PRN IV PUSH 01/03/18 20:30 01/03/18 21:45 (Flomax) 0.8 mg HS PO 01/04/18 21:00 01/04/18 22:03 Vital Signs / I&O Vital Signs Date Time Temp Pulse Resp B/P (MAP) Pulse Ox O2 Delivery O2 Flow Rate FiO2 01/05/18 12:49 65 01/05/18 10:57 20 01/05/18 09:25 63 01/05/18 08:48 93 21 01/05/18 08:01 65 01/05/18 07:54 78 01/05/18 07:54 97.8 78 18 124/60 (81) 98 01/05/18 06:00 64 01/05/18 05:00 64 01/05/18 04:00 72 01/05/18 03:08 61 16 140/61 (87) 97 01/05/18 03:00 61 01/05/18 02:00 60 01/05/18 01:00 54 01/05/18 00:00 62 01/04/18 23:00 56 16 111/56 (74) 98 01/04/18 23:00 56 01/04/18 22:00 54 01/04/18 21:00 54 01/04/18 20:00 54 01/04/18 19:00 54 01/04/18 19:00 97.0 54 16 98/51 (67) 97 01/04/18 18:00 54 01/04/18 17:00 54 01/04/18 16:00 56 01/04/18 15:40 98.1 58 16 122/65 (84) 94 01/04/18 15:00 58 01/04/18 14:00 60 01/04/18 13:00 58 I/O 01/04/18 01/04/18 01/04/18 01/05/18 01/05/18 01/05/18 07:00 15:00 23:00 07:00 15:00 23:00 Intake Total 360 ml 480 ml 240 ml Output Total 600 ml 350 ml 600 ml Balance -240 ml 130 ml -360 ml Intake Oral 360 ml 480 ml 240 ml IV Total 0 ml Output Urine Total 600 ml 350 ml 500 ml Drainage Total 100 ml # Bowel Movements 0 0 Laboratory GENERAL: SKIN: Warm and dry. HEAD: Normocephalic. EYES: No scleral icterus. No injection or drainage. NECK: Supple, trachea midline. No JVD or lymphadenopathy. CARDIOVASCULAR: Regular rate and rhythm without murmurs, gallops, or rubs. RESPIRATORY: Breath sounds equal bilaterally. No accessory muscle use. GASTROINTESTINAL: Abdomen soft, non-tender, nondistended. MUSCULOSKELETAL: No cyanosis, or edema. BACK: Nontender without obvious deformity. No CVA tenderness. Laboratory Tests Test 01/04/18 13:41 White Blood Count 9.4 TH/MM3 Red Blood Count 2.83 MIL/MM3 Hemoglobin 9.3 GM/DL Hematocrit 27.3 % Mean Corpuscular Volume 96.5 FL Mean Corpuscular Hemoglobin 32.9 PG Mean Corpuscular Hemoglobin Concent 34.1 % Red Cell Distribution Width 15.6 % Platelet Count 235 TH/MM3 Mean Platelet Volume 7.0 FL Neutrophils (%) (Auto) 58.1 % Lymphocytes (%) (Auto) 29.3 % Monocytes (%) (Auto) 8.8 % Eosinophils (%) (Auto) 3.4 % Basophils (%) (Auto) 0.4 % Neutrophils # (Auto) 5.5 TH/MM3 Lymphocytes # (Auto) 2.7 TH/MM3 Monocytes # (Auto) 0.8 TH/MM3 Eosinophils # (Auto) 0.3 TH/MM3 Basophils # (Auto) 0.0 TH/MM3 CBC Comment DIFF FINAL Differential Comment Blood Urea Nitrogen 28 MG/DL Creatinine 1.12 MG/DL Random Glucose 97 MG/DL Calcium Level 8.4 MG/DL Sodium Level 143 MEQ/L Potassium Level 4.9 MEQ/L Chloride Level 111 MEQ/L Carbon Dioxide Level 25.2 MEQ/L Anion Gap 7 MEQ/L Estimat Glomerular Filtration Rate 64 ML/MIN Assessment and Plan Problem List: (1) Ventricular tachycardia ICD Codes: I47.2 - Ventricular tachycardia Status: Acute (2) CHF (congestive heart failure) ICD Codes: I50.9 - Heart failure, unspecified (3) CAD (coronary artery disease) ICD Codes: I25.10 - Atherosclerotic heart disease of [place] coronary artery without angina pectoris (4) HTN (hypertension) ICD Codes: I10 - Essential (primary) hypertension Status: Chronic (5) Hyperlipidemia ICD Codes: E78.5 - Hyperlipidemia, unspecified Status: Chronic (6) Cholecystitis ICD Codes: K81.9 - Cholecystitis, unspecified Status: Acute Assessment and Plan 1.) CAD - on eliquis and aspirin s/p pci rca 12/18/17. s/p drain tube for cholecystectomy, appears euvolemic, bnp 113 01/02/18, dyspnea appears noncardiac , recheck bnp Problem Qualifiers (1) HTN (hypertension): Qualified Codes: I10 - Essential (primary) hypertension Alvarez Livingston MD Jan 05, 2018 12:54
--- NOTE | 2018-01-05 13:14 | PD.CONS ---
cc: Sergio Martinez MD [facility] Service General Surgery Consult Requested By Dr. Rooney Reason for Consult Cholecystis s/p cholecystostomy tube in place Primary Care Physician No Primary Care Physician History of Present Illness This is a 72 year old male known to the General Surgery service with a past medical history of anxiety, depression, CHF, an extensive cardiac history with recent cardiac stent placement on December 18, hypertension, neuropathy and bipolar disease who presents to the ED after his AICD fired off at home. He has a recent cholecystostomy tube placed during his last admission. During that admission he also had a cardiac stent placed and was started on Eliquis, Plavix and aspirin. Cardiology suggested a minimum of 6 weeks before any surgery could be preformed during his last admission. He still has his cholecystostomy tube in place. His current WBC is normal. He is able to tolerate a low fat diet. A General Surgery consultation has been requested. Review of Systems Constitutional: DENIES: Fatigue, Change in appetite Endocrine: DENIES: Polydipsia, Polyuria, Polyphagia Eyes: DENIES: Blurred vision, Diplopia Ears, nose, mouth, throat: DENIES: Vertigo Respiratory: DENIES: Apneas Cardiovascular: COMPLAINS OF: Chest pain Gastrointestinal: COMPLAINS OF: Abdominal pain (at drain site ), DENIES: Nausea , Vomiting Genitourinary: DENIES: Urinary frequency Musculoskeletal: DENIES: Joint pain Integumentary: DENIES: Abnormal pigmentation Hematologic/lymphatic: DENIES: Bruising Immunologic/allergic: DENIES: Eczema Neurologic: DENIES: Abnormal gait, Headache Psychiatric: DENIES: Confusion, Mood changes Past Family Social History Past Medical History Anxiety Depression Bipolar disease CHF Hypertension Neuropathy Past Surgical History Cardiac stent placement (December 18, 2017) CABG x3 about 10 years ago Reported Medications See chart as list is extensive but note the patient is on ELIQUIS, PLAVIX and ASPIRIN Allergies: Coded Allergies: No Known Allergies (Verified Allergy, Unknown, 01/02/18) Active Ordered Medications Current Medications Medications (Trade) Dose Ordered Sig/Eliot Route Start Time Stop Time Status Last Admin (NS Flush) 2 ml UNSCH PRN IVF 01/02/18 16:15 01/04/18 22:05 (NS Flush) 2 ml UNSCH PRN IVF 01/02/18 18:30 (Vasotec Inj) 1.25 mg Q6H PRN IV PUSH 01/02/18 20:15 (Norvasc) 5 mg DAILY PO 01/03/18 09:00 01/05/18 09:15 (Eliquis) 5 mg BID PO 01/02/18 21:00 01/05/18 09:15 (Aspirin Chew) 81 mg DAILY PO 01/03/18 09:00 01/05/18 09:15 (Coreg) 12.5 mg DAILY PO 01/03/18 09:00 01/05/18 09:14 (Depakote Dr) 500 mg TID PO 01/03/18 09:00 01/05/18 09:15 (Cymbalta Dr) 60 mg DAILY PO 01/03/18 09:00 01/05/18 09:14 (Lasix) 40 mg DAILY PO 01/03/18 09:00 Future Hold (Neurontin) 300 mg TID PO 01/03/18 09:00 01/05/18 09:15 (Prinivil) 10 mg DAILY PO 01/03/18 09:00 01/05/18 09:14 (KCl) 20 meq DAILY PO 01/03/18 09:00 01/05/18 09:15 (SEROquel) 25 mg BID@09,12 PO 01/03/18 09:00 01/05/18 09:15 (Aldactone) 25 mg BID@,18 PO 01/03/18 09:00 01/05/18 09:15 (Tylenol) 650 mg Q4H PRN PO 01/02/18 20:30 01/04/18 13:48 (Narcan Inj) 0.4 mg UNSCH PRN IV PUSH 01/02/18 20:30 (Lillian-Colace) 1 tab BID PO 01/02/18 21:00 (Milk Of Magnesia Liq) 30 ml Q12H PRN PO 01/02/18 20:30 (Senokot) 17.2 mg Q12H PRN PO 01/02/18 20:30 (Dulcolax Supp) 10 mg DAILY PRN RECTAL 01/02/18 20:30 (Lactulose Liq) 30 ml DAILY PRN PO 01/02/18 20:30 (Cordarone) 200 mg DAILY PO 01/03/18 09:00 01/05/18 09:15 (Lipitor) 40 mg HS PO 01/03/18 21:00 01/04/18 22:03 (Ultram) 50 mg Q6H PRN PO 01/03/18 09:45 01/05/18 09:25 (Zofran Inj) 4 mg Q6H PRN IV PUSH 01/03/18 20:30 01/03/18 21:45 (Flomax) 0.8 mg HS PO 01/04/18 21:00 01/04/18 22:03 Family History Noncontributory Social History Denies tobacco use David ETOH use David illicit drug use Drives a Moped. Physical Exam Vital Signs Vital Signs Date Time Temp Pulse Resp B/P (MAP) Pulse Ox O2 Delivery O2 Flow Rate FiO2 01/05/18 12:49 65 01/05/18 10:57 20 01/05/18 09:25 63 01/05/18 08:48 93 21 01/05/18 08:01 65 01/05/18 07:54 78 01/05/18 07:54 97.8 78 18 124/60 (81) 98 01/05/18 06:00 64 01/05/18 05:00 64 01/05/18 04:00 72 01/05/18 03:08 61 16 140/61 (87) 97 01/05/18 03:00 61 01/05/18 02:00 60 01/05/18 01:00 54 01/05/18 00:00 62 01/04/18 23:00 56 16 111/56 (74) 98 01/04/18 23:00 56 01/04/18 22:00 54 01/04/18 21:00 54 01/04/18 20:00 54 01/04/18 19:00 54 01/04/18 19:00 97.0 54 16 98/51 (67) 97 01/04/18 18:00 54 01/04/18 17:00 54 01/04/18 16:00 56 01/04/18 15:40 98.1 58 16 122/65 (84) 94 01/04/18 15:00 58 01/04/18 14:00 60 01/04/18 13:00 58 Physical Exam GENERAL: 72 year old male resting in bed in no acute distress. SKIN: Warm and dry. HEAD: Atraumatic. Normocephalic. EYES: Pupils equal and round. No scleral icterus. No injection or drainage. ENT: No nasal bleeding or discharge. Mucous membranes pink and moist. NECK: Trachea midline. CARDIOVASCULAR: Regular rate and rhythm. RESPIRATORY: No accessory muscle use. Clear to auscultation. Breath sounds equal bilaterally. GASTROINTESTINAL: Abdomen soft, non-tender, nondistended. Cholecystostomy tube in place draining thin bilious fluid into gravity bag. MUSCULOSKELETAL: Extremities without clubbing, cyanosis, or edema. No obvious deformities. NEUROLOGICAL: Awake and alert. No obvious cranial nerve deficits. Motor grossly within normal limits. Five out of 5 muscle strength in the arms and legs. Normal speech. PSYCHIATRIC: Appropriate mood and affect; insight and judgment normal. Laboratory Laboratory Tests Test 01/04/18 13:41 White Blood Count 9.4 Red Blood Count 2.83 Hemoglobin 9.3 Hematocrit 27.3 Mean Corpuscular Volume 96.5 Mean Corpuscular Hemoglobin 32.9 Mean Corpuscular Hemoglobin Concent 34.1 Red Cell Distribution Width 15.6 Platelet Count 235 Mean Platelet Volume 7.0 Neutrophils (%) (Auto) 58.1 Lymphocytes (%) (Auto) 29.3 Monocytes (%) (Auto) 8.8 Eosinophils (%) (Auto) 3.4 Basophils (%) (Auto) 0.4 Neutrophils # (Auto) 5.5 Lymphocytes # (Auto) 2.7 Monocytes # (Auto) 0.8 Eosinophils # (Auto) 0.3 Basophils # (Auto) 0.0 CBC Comment DIFF FINAL Differential Comment Blood Urea Nitrogen 28 Creatinine 1.12 Random Glucose 97 Calcium Level 8.4 Sodium Level 143 Potassium Level 4.9 Chloride Level 111 Carbon Dioxide Level 25.2 Anion Gap 7 Estimat Glomerular Filtration Rate 64 Result Diagram: 01/04/18 1341 01/04/18 1341 Assessment and Plan Assessment and Plan 72 year old male with recent hospitalization for acute cholecystics; respiratory distress requiring intubation; IR placed cholecystostomy tube -Recommend keeping cholecystostomy tube to gravity drainage bag -Continue Eliquis, Plavix and Aspirin per Cardiology recommendation -Low fat diet -No antibiotics at this point needed -Not a surgical candidate at this time due to recent cardiac stent placement on OAC and recent AICD firing for Vtach -We will wait the recommended 6 weeks minimum for surgical intervention per Cardiology -Follow up in the office in a few weeks Attending Note - Dr. Martinez Patient seen and examined Known to us; as above Abdomen moderately tender around drain site. The exam, history, and the medical decision-making described in the above note were completed with the assistance of the mid-level provider. I reviewed and agree with the findings presented. I attest that I had a [id number] encounter with the patient on the same day, and personally performed and documented my assessment and findings in the medical record. Discussed Condition With Mag Andino/First Víctor EMMANUEL Jan 05, 2018 13:13 Sergio Martinez MD Jan 08, 2018 17:39
[2018-01-05 14:59] LABS: CALCIUM 8.8 MG/DL (8.5-10.1); CREATININE 1.05 MG/DL (0.60-1.30)
--- NOTE | 2018-01-05 15:16 | PD.CONS ---
Consult Service Palliative Care . Consult Requested By Dr. Gustavo Walker . Primary Care Physician No Primary Care Physician . Reason for Consultation a. To assist with evaluation and management of symptoms including: Pain b. To assist medical decision maker(s) with: better understanding of current medical conditions; weighing benefits/burdens of medical treatment options; making medical treatment decisions. HPI History of Present Illness Mr. Goff is a 72 years old male with a past medical history significant of CAD recent cardiac stent placement, CABG, CHF, EF of 25-30% on echo 10/27/17, hypertension, atrial fibrillation on Eliquis, hyperlipidemia and recent gallbladder drain placement for cholecystitis. Patient presented to the ER on via [facility] for evaluation of AICD after it had fired at home. Patient has never had AICD firing in the past 3-4 years that he has had it. Patient was recently hospitalized from 12/12-12/26 for acute cholecystitis and a cholecystectomy drainage was placed by interventional radiology. During the last hospitalization patient required intubation and mechanical ventilation for acute hypoxemic respiratory failure. ER course: * Vital signs: Temperature 98.3, pulse 61, respirations 16, BP 152/71, O2 saturation 96% on room air * EKG revealed normal sinus rhythm with a rate of 84, mild left axis deviation intraventricular conduction delay noted. * Laboratory workup revealed WBC 10.4, hemoglobin 10.4, hematocrit 31.9, platelet count 264, PT 10.0, INR 1.0, APTT 21.9, sodium 146, potassium 4.2, BUN/ creatinine 26/1.23, AST 20 ALT 27, BNP 113, troponin 0 0.02 * AICD interrogation by the [facility]-noted that patient had he had multiple episodes of nonsustained ventricular tachycardia with the longest one lasting 8 minutes which resulted in defibrillation shock at 11J * Amiodarone infusion started per cardiology recommendations. * Chest x-ray revealed no acute cardiopulmonary findings and old healed posterior rib fractures bilaterally. * Gallbladder ultrasound revealed to decompress gallbladder with a drain in place. * Urinalysis negative Cardiology Dr. Hart consulted on 01/02/18. Physical therapy consulted on 01/03/18 for evaluation and treatment, recommended PT at rehab. General surgeon consulted on 01/05/18 for evaluation of cholecystitis status post cholecystostomy tube placement, recommended keeping cholecystostomy tube to gravity drainage bag. Patient is not a surgical candidate at this time due to recent cardiac stent placement and recent defibrillation by AICD. Palliative care consulted to assist with establishing goals of care. Patient seen and examined in his room. Patient is awake, alert and oriented to self, place and situation. Patient complaining of a headache- called RN to request pain medication. Obtained psychosocial and past medical history. Patient appears to understand his medical condition though I am not sure if he has good insight regarding his medical condition. Addressed code status, discussed CPR risks and limitations given patient's multiple comorbidities. Patient appeared to become very angry, and say that "I am tired of being asked the same question as if people want me to say a different answer". Patient then calmed himself down and said, "I want everything done to keep me alive or they can do what they want". Explained to patient that the purpose of this visit is to find out what he wants regarding his medical care and convey it to the rest of the medical team. Patient very dismissive after addressing code status, he requested to be left alone since he had a headache. . Function/Cognitive Trajectory Patient lives at home with her roommate. Patient was recently admitted for cholecystitis from 12/12-12/26 and was discharged home with [facility]. Patient lives at home with roommates. Patient stated that he is independent of all his ADLs. . Review of Systems Constitutional: COMPLAINS OF: Pain (headache), DENIES: Fever, Change in appetite Eyes: DENIES: Blurred vision, Eye inflammation Ears, nose, mouth, throat: DENIES: Hearing loss, Nasal discharge Respiratory: COMPLAINS OF: Shortness of breath, DENIES: Cough, Wheezing Cardiovascular: DENIES: Chest pain, Lower Extremity Edema Gastrointestinal: DENIES: Diarrhea, Nausea Hematologic/Lymphatics: COMPLAINS OF: Bruising Neurologic: COMPLAINS OF: Headache Past Family Social History Coded Allergies: No Known Allergies (Verified Allergy, Unknown, 01/02/18) Past Medical History Coronary artery disease s/p CABG Ischemic cardiomyopathy-ejection fraction of 25-30% as of 10/27/17 Status post AICD Hypertension Chronic atrial fibrillation on Eliquis Probable COPD Hyperlipidemia . Past Surgical History AICD placement in [facility] ([facility]) CABG approximately 10 years ago Left shoulder surgery PCI with cardiac stent May, Cholecystostomy tube placement by interventional radiology 12/14/17 Replacement of Colace cystostomy tube on 12/20/17 after patient had pulled out the initial one . Reported Medications Norvasc (Amlodipine Besylate) 5 Mg Tab 5 Mg PO DAILY Lisinopril 10 Mg Tab 10 Mg PO DAILY [place] (Hydrocodone-Acetaminophen) 5 Mg-325 Mg Tab 1 Tab PO Q6H PRN Furosemide 40 Mg Tab 40 Mg PO DAILY Seroquel (Quetiapine Fumarate) 25 Mg Tab 25 Mg PO BID@,12 Tgt Aspirin (Aspirin) 81 Mg Chw 81 Mg PO DAILY Aldactone (Spironolactone) 25 Mg Tab 25 Mg PO BID@ Potassium Chloride ER (Potassium Chloride) 20 Meq Tab 20 Meq PO DAILY Eliquis (Apixaban) 5 Mg Tab 5 Mg PO BID Coreg (Carvedilol) 12.5 Mg Tab 12.5 Mg PO DAILY Atorvastatin (Atorvastatin Calcium) 40 Mg Tab 40 Mg PO HS Multiple Vitamin 1 Tab 1 Tab PO DAILY Divalproex DR (Divalproex Sodium) 500 Mg Tabdr 500 Mg PO TID Duloxetine DR (Duloxetine HCl) 60 Mg Capdr 60 Mg PO DAILY Tamsulosin (Tamsulosin HCl) 0.4 Mg Cap 0.8 Mg PO HS Amiodarone (Amiodarone HCl) 200 Mg Tab 200 Mg PO DAILY Gabapentin 300 Mg Cap 300 Mg PO TID Tramadol (Tramadol HCl) 50 Mg Tab 50 Mg PO Q6H PRN . Current Medications Medications (Trade) Dose Ordered Sig/Eliot Route Start Time Stop Time Status Last Admin (NS Flush) 2 ml UNSCH PRN IVF 01/02/18 16:15 01/04/18 22:05 (NS Flush) 2 ml UNSCH PRN IVF 01/02/18 18:30 (Vasotec Inj) 1.25 mg Q6H PRN IV PUSH 01/02/18 20:15 (Norvasc) 5 mg DAILY PO 01/03/18 09:00 01/05/18 09:15 (Eliquis) 5 mg BID PO 01/02/18 21:00 01/05/18 09:15 (Aspirin Chew) 81 mg DAILY PO 01/03/18 09:00 01/05/18 09:15 (Coreg) 12.5 mg DAILY PO 01/03/18 09:00 01/05/18 09:14 (Depakote Dr) 500 mg TID PO 01/03/18 09:00 01/05/18 13:51 (Cymbalta Dr) 60 mg DAILY PO 01/03/18 09:00 01/05/18 09:14 (Lasix) 40 mg DAILY PO 01/03/18 09:00 Future Hold (Neurontin) 300 mg TID PO 01/03/18 09:00 01/05/18 13:51 (Prinivil) 10 mg DAILY PO 01/03/18 09:00 01/05/18 09:14 (KCl) 20 meq DAILY PO 01/03/18 09:00 01/05/18 09:15 (SEROquel) 25 mg BID@,12 PO 01/03/18 09:00 01/05/18 13:51 (Aldactone) 25 mg BID@,18 PO 01/03/18 09:00 01/05/18 09:15 (Tylenol) 650 mg Q4H PRN PO 01/02/18 20:30 01/04/18 13:48 (Narcan Inj) 0.4 mg UNSCH PRN IV PUSH 01/02/18 20:30 (Lillian-Colace) 1 tab BID PO 01/02/18 21:00 (Milk Of Magnesia Liq) 30 ml Q12H PRN PO 01/02/18 20:30 (Senokot) 17.2 mg Q12H PRN PO 01/02/18 20:30 (Dulcolax Supp) 10 mg DAILY PRN RECTAL 01/02/18 20:30 (Lactulose Liq) 30 ml DAILY PRN PO 01/02/18 20:30 (Cordarone) 200 mg DAILY PO 01/03/18 09:00 01/05/18 09:15 (Lipitor) 40 mg HS PO 01/03/18 21:00 01/04/18 22:03 (Ultram) 50 mg Q6H PRN PO 01/03/18 09:45 01/05/18 09:25 (Zofran Inj) 4 mg Q6H PRN IV PUSH 01/03/18 20:30 01/03/18 21:45 (Flomax) 0.8 mg HS PO 01/04/18 21:00 01/04/18 22:03 Family History Mother- at age 86 Father- . He had kidney problems . Substance Use Tobacco: None reported Alcohol: None reported Prescription med abuse: None reported Illicits: None reported . Psychosocial History Patient was born in [place], [place]. He moved to [place] with his parents at age 11. 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 . Spiritual/Cultural Factors No lutheran affiliation . Health Care Surrogate: Copy in medical record Date completed: 01/05/2018 . Health Care Surrogate(s): Health Care Surrogate-Nephew- Sukhjinder Hernandez . Ethical and Legal Issues None identified at this time . Physical Exam Vital Signs Date Time Temp Pulse Resp B/P (MAP) Pulse Ox O2 Delivery O2 Flow Rate FiO2 01/05/18 13:12 65 01/05/18 12:50 97.8 78 18 130/63 (85) 97 01/05/18 12:49 65 01/05/18 10:57 20 01/05/18 09:25 63 01/05/18 08:48 93 21 01/05/18 08:01 65 01/05/18 07:54 78 01/05/18 07:54 97.8 78 18 124/60 (81) 98 01/05/18 06:00 64 01/05/18 05:00 64 01/05/18 04:00 72 01/05/18 03:08 61 16 140/61 (87) 97 01/05/18 03:00 61 01/05/18 02:00 60 01/05/18 01:00 54 01/05/18 00:00 62 01/04/18 23:00 56 16 111/56 (74) 98 01/04/18 23:00 56 01/04/18 22:00 54 01/04/18 21:00 54 01/04/18 20:00 54 01/04/18 19:00 54 01/04/18 19:00 97.0 54 16 98/51 (67) 97 01/04/18 18:00 54 01/04/18 17:00 54 01/04/18 16:00 56 01/04/18 15:40 98.1 58 16 122/65 (84) 94 01/04/18 15:00 58 Exam CONSTITUTIONAL/GENERAL: This is an adequately nourished patient, in no apparent distress. TUBES/LINES/DRAINS: SKIN: No jaundice, rashes, or lesions. Ecchymoses on upper extremities. No wounds seen anteriorly. Skin temperature appropriate. Not diaphoretic. HEAD: Atraumatic. Normocephalic. EYES: Pupils equal and round and reactive. Extraocular motions intact. No scleral icterus. No injection or drainage. Fundi not examined. ENT: Hearing grossly normal. Nose without bleeding or purulent drainage. Throat without visible erythema, exudates, masses, or lesions. NECK: Trachea midline. Supple, nontender. No palpable thyroid enlargement or nodularity. CARDIOVASCULAR: Regular rate and rhythm without murmurs, gallops, or rubs. No JVD. Peripheral pulses symmetric. RESPIRATORY/CHEST: Symmetric, unlabored respirations. Clear to auscultation. Breath sounds equal bilaterally. No wheezes, rales, or rhonchi. GASTROINTESTINAL: Abdomen soft, non-tender, nondistended. No hepato-splenomegaly , or palpable masses. No guarding. Bowel sounds present. GENITOURINARY: Without palpable bladder distension. Cabrera catheter in place. MUSCULOSKELETAL: Extremities without clubbing, cyanosis, or edema. No joint tenderness or effusion noted. No calf tenderness. No mottling or clubbing. LYMPHATICS: No palpable cervical or supraclavicular adenopathy. NEUROLOGICAL: Awake and alert. Motor and sensory grossly within normal limits. Follows commands. Cognitively sharp. Moves all extremities. PSYCHIATRIC: No obvious anxiety/depression. no apparent hallucinations or other psychotic thought process. Diagnostic Tests Laboratory Laboratory Tests Test 01/02/18 15:30 01/02/18 21:04 01/02/18 21:30 01/03/18 04:17 White Blood Count 10.4 TH/MM3 (4.0-11.0) 9.7 TH/MM3 (4.0-11.0) Red Blood Count 3.32 MIL/MM3 (4.50-5.90) 2.85 MIL/MM3 (4.50-5.90) Hemoglobin 10.4 GM/DL (13.0-17.0) 9.1 GM/DL (13.0-17.0) Hematocrit 31.9 % (39.0-51.0) 27.2 % (39.0-51.0) Mean Corpuscular Volume 96.2 FL (80.0-100.0) 95.3 FL (80.0-100.0) Mean Corpuscular Hemoglobin 31.5 PG (27.0-34.0) 31.9 PG (27.0-34.0) Mean Corpuscular Hemoglobin Concent 32.7 % (32.0-36.0) 33.5 % (32.0-36.0) Red Cell Distribution Width 15.7 % (11.6-17.2) 15.3 % (11.6-17.2) Platelet Count 264 TH/MM3 (150-450) 217 TH/MM3 (150-450) Mean Platelet Volume 7.9 FL (7.0-11.0) 7.2 FL (7.0-11.0) Neutrophils (%) (Auto) 65.7 % (16.0-70.0) 55.1 % (16.0-70.0) Lymphocytes (%) (Auto) 21.7 % (9.0-44.0) 30.5 % (9.0-44.0) Monocytes (%) (Auto) 10.7 % (0.0-8.0) 11.9 % (0.0-8.0) Eosinophils (%) (Auto) 1.4 % (0.0-4.0) 1.6 % (0.0-4.0) Basophils (%) (Auto) 0.5 % (0.0-2.0) 0.9 % (0.0-2.0) Neutrophils # (Auto) 6.8 TH/MM3 (1.8-7.7) 5.3 TH/MM3 (1.8-7.7) Lymphocytes # (Auto) 2.3 TH/MM3 (1.0-4.8) 3.0 TH/MM3 (1.0-4.8) Monocytes # (Auto) 1.1 TH/MM3 (0-0.9) 1.1 TH/MM3 (0-0.9) Eosinophils # (Auto) 0.1 TH/MM3 (0-0.4) 0.2 TH/MM3 (0-0.4) Basophils # (Auto) 0.1 TH/MM3 (0-0.2) 0.1 TH/MM3 (0-0.2) CBC Comment DIFF FINAL DIFF FINAL Differential Comment Prothrombin Time 10.0 SEC (9.8-11.6) Prothromb Time International Ratio 1.0 RATIO Activated Partial Thromboplast Time 21.9 SEC (24.3-30.1) Blood Urea Nitrogen 26 MG/DL (7-18) 23 MG/DL (7-18) Creatinine 1.23 MG/DL (0.60-1.30) 0.96 MG/DL (0.60-1.30) Random Glucose 162 MG/DL (74-106) 94 MG/DL (74-106) Total Protein 7.4 GM/DL (6.4-8.2) 6.6 GM/DL (6.4-8.2) Albumin 2.6 GM/DL (3.4-5.0) 2.2 GM/DL (3.4-5.0) Calcium Level 8.5 MG/DL (8.5-10.1) 8.1 MG/DL (8.5-10.1) Magnesium Level 2.0 MG/DL (1.5-2.5) Alkaline Phosphatase 53 U/L (45-117) 47 U/L (45-117) Aspartate Amino Transf (AST/SGOT) 20 U/L (15-37) 16 U/L (15-37) Alanine Aminotransferase (ALT/SGPT) 27 U/L (12-78) 26 U/L (12-78) Total Bilirubin 0.2 MG/DL (0.2-1.0) 0.3 MG/DL (0.2-1.0) Sodium Level 146 MEQ/L (136-145) 142 MEQ/L (136-145) Potassium Level 4.2 MEQ/L (3.5-5.1) 3.9 MEQ/L (3.5-5.1) Chloride Level 113 MEQ/L (98-107) 112 MEQ/L (98-107) Carbon Dioxide Level 22.6 MEQ/L (21.0-32.0) 20.0 MEQ/L (21.0-32.0) Anion Gap 10 MEQ/L (5-15) 10 MEQ/L (5-15) Estimat Glomerular Filtration Rate 58 ML/MIN (>89) 77 ML/MIN (>89) Total Creatine Kinase 46 U/L (39-308) 41 U/L (39-308) 42 U/L (39-308) Troponin I 0.02 NG/ML (0.02-0.05) 0.03 NG/ML (0.02-0.05) 0.03 NG/ML (0.02-0.05) B-Type Natriuretic Peptide 113 PG/ML (0-100) Urine Color YELLOW (YELLW/STRAW) Urine Turbidity CLEAR (CLEAR) Urine pH 5.5 (5.0-8.5) Urine Specific [place] 1.021 (1.002-1.035) Urine Protein TRACE mg/dL (NEG-TRACE) Urine Glucose (UA) NEG mg/dL (NEG) Urine Ketones NEG mg/dL (NEG) Urine Occult Blood NEG (NEG) Urine Nitrite NEG (NEG) Urine Bilirubin NEG (NEG) Urine Urobilinogen LESS THAN 2.0 MG/DL (LESS Urine Leukocyte Esterase NEG (NEG) Urine WBC 5 /hpf (0-5) Urine Squamous Epithelial Cells 1 /hpf (0-5) Urine Hyaline Casts 1 /lpf (RARE) Urine Mucus FEW /lpf (OCC) Microscopic Urinalysis Comment CULT NOT INDICATED Lipase 222 U/L (73-393) Test 01/04/18 13:41 White Blood Count 9.4 TH/MM3 (4.0-11.0) Red Blood Count 2.83 MIL/MM3 (4.50-5.90) Hemoglobin 9.3 GM/DL (13.0-17.0) Hematocrit 27.3 % (39.0-51.0) Mean Corpuscular Volume 96.5 FL (80.0-100.0) Mean Corpuscular Hemoglobin 32.9 PG (27.0-34.0) Mean Corpuscular Hemoglobin Concent 34.1 % (32.0-36.0) Red Cell Distribution Width 15.6 % (11.6-17.2) Platelet Count 235 TH/MM3 (150-450) Mean Platelet Volume 7.0 FL (7.0-11.0) Neutrophils (%) (Auto) 58.1 % (16.0-70.0) Lymphocytes (%) (Auto) 29.3 % (9.0-44.0) Monocytes (%) (Auto) 8.8 % (0.0-8.0) Eosinophils (%) (Auto) 3.4 % (0.0-4.0) Basophils (%) (Auto) 0.4 % (0.0-2.0) Neutrophils # (Auto) 5.5 TH/MM3 (1.8-7.7) Lymphocytes # (Auto) 2.7 TH/MM3 (1.0-4.8) Monocytes # (Auto) 0.8 TH/MM3 (0-0.9) Eosinophils # (Auto) 0.3 TH/MM3 (0-0.4) Basophils # (Auto) 0.0 TH/MM3 (0-0.2) CBC Comment DIFF FINAL Differential Comment Blood Urea Nitrogen 28 MG/DL (7-18) Creatinine 1.12 MG/DL (0.60-1.30) Random Glucose 97 MG/DL (74-106) Calcium Level 8.4 MG/DL (8.5-10.1) Sodium Level 143 MEQ/L (136-145) Potassium Level 4.9 MEQ/L (3.5-5.1) Chloride Level 111 MEQ/L (98-107) Carbon Dioxide Level 25.2 MEQ/L (21.0-32.0) Anion Gap 7 MEQ/L (5-15) Estimat Glomerular Filtration Rate 64 ML/MIN (>89) Result Diagram: 01/04/18 1341 01/04/18 1341 Imaging Last Impressions Chest X-Ray 01/02/18 1601 Signed Impressions: Service Date/Time: Tuesday, January 02, 2018 16:47 - CONCLUSION: 1. No acute cardiopulmonary findings. 2. Old, healed posterior rib fractures bilaterally. 3. Appearance of the chest is similar compared to prior dated 12/29/17 Sandeep Allison MD Gall Bladder Ultrasound 01/02/18 0000 Signed Impressions: Service Date/Time: Tuesday, January 02, 2018 21:42 - CONCLUSION: 1. Gallbladder drain present. The gallbladder is decompressed. Thick wall again noted. 2. Decreased diameter of the common bile duct. Iain Barentt MD Patient/Family Conference Family Conference Location: Bedside Issues Discussed: * Palliative care role, purpose, approach * Additional medical, psychosocial, and spiritual history * Patients general health, functional status, and cognitive changes in the months leading up to the current hospitalization * Patient/family understanding of the current medical problems * Patient/family understanding of prognosis * Patients goals of care as best understood from advance directives and/or conversations and/or values * Current medical treatment options and benefits/burdens of those options * Likely scenarios comparing ongoing aggressive care with a transition to comfort measures only * Questions answered to the best of my ability * Palliative care contact information provided Assessment and Plan Disease Oriented Problem List: (1) Ventricular tachycardia (2) CAD (coronary artery disease) (3) CHF (congestive heart failure) (4) HTN (hypertension) (5) Hyperlipidemia (6) Cholecystitis Symptom Scale: (1) Pain Comment: Patient has been complaining of body pain and headache during this hospitalization . Pertinent Non-Medical Issues Psychosocial:Patient was born in [place], [place]. He moved to [place] with his parents at age 11. 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 Spiritual: No lutheran affiliation Legal:Patient signed HCS form today. Ethical issues impacting care:None identified at this time . Important Contacts Nephew -David SlaughterOfyxw-[phone] Nephew`s - Sukhjinder Harding . Prognosis Mr. Goff is a 72 years old male with a past medical history significant of CAD recent cardiac stent placement, CABG, CHF, EF of 25-30% on echo 10/27/17, hypertension, atrial fibrillation on Eliquis, hyperlipidemia and recent gallbladder drain placement for cholecystitis. Patient presented to the ER on via [facility] for evaluation of AICD after it had fired at home. Given ongoing multiple comorbidities and recent hospitalization, patient remains at high risk for further complications, deterioration and decline. . Code Status: Full Code Plan PLAN: Legal decision maker: Patient is able to make his own medical decisions at this time. In the event that he is incapacitated, patient verbally designated his nephew David Slaughter as his health care surrogate Goals: Aggressive CODE STATUS: Full CODE Patient seen and examined in his room. Patient is awake, alert and oriented to self, place and situation. Patient complaining of a headache- called RN to request pain medication. Obtained psychosocial and past medical history. Patient appears to understand his medical condition though I am not sure if he has good insight regarding his medical condition. Addressed code status, discussed CPR risks and limitations given patient's multiple comorbidities. Patient appeared to become very angry, and say that "I am tired of being asked the same question as if people want me to say a different answer". Patient then calmed himself down and said, "I want everything done to keep me alive or they can do what they want". Explained to patient that the purpose of this visit is to find out what he wants regarding his medical care and convey it to the rest of the medical team. Patient very dismissive after addressing code status, he requested to be left alone since he had a headache. SYMPTOMS: * Pain: Patient has been complaining of body pain and headache during this hospitalization. Patient was started on tramadol 50 mg q 6 hrs prn. Patient complaining of a headache during visit 04/28. Sparingly requiring pain medication. Palliative care will continue to follow the patient during hospital course as condition evolves, to assist patient/decision-maker with understanding of their medical conditions, weighing benefits/burdens of treatment options, for clarification of goals of treatment. Additionally will assist with any symptoms of palliative concern. Thank you for the opportunity to participate in the care of Mr. Goff. Attestation To help prompt me to consider important information that might be impacting today's encounter and assessment, information from prior notes written by myself or my colleagues may have been "brought forward" into today's note. My signature on this note, however, is an attestation that I personally performed the exam, history, and/or decision-making noted today, and, unless otherwise indicated, the interactions with patient, family, and staff as well as the review of records all occurred today. I also attest that the listed assessment and stated plan reflect my best clinical judgment today based on the combination of historical information, prior notes, and today's exam/ interactions. When time spent is documented, it refers only to time spent today by the signer, or if indicated, combined time spent today by collaborating physician/nurse practitioner. Dot Longoria Jan 05, 2018 15:16
[2018-01-05] MEDS ORDERED: ACET325T15 PO (15:30)
[2018-01-05] MEDS ORDERED: DIVA500T PO (15:30)
[2018-01-05] MEDS ORDERED: FURO40TA PO (15:30)
[2018-01-05] MEDS ORDERED: LISI10TA3 PO (15:30)
[2018-01-05] MEDS ORDERED: APIX5TAB PO (15:30)
[2018-01-05] MEDS ORDERED: ASPI81 PO (15:30)
[2018-01-05] MEDS ORDERED: CARV12.5 PO (15:30)
[2018-01-05] MEDS ORDERED: TRAM50TA PO (15:30)
[2018-01-05] MEDS ORDERED: ATOR40TA16 PO (15:30)
[2018-01-05] MEDS ORDERED: SPIR25 PO (15:30)
[2018-01-05] MEDS ORDERED: AMIO200T PO (15:30)
[2018-01-05] MEDS ORDERED: MULTTAB67 PO (15:30)
[2018-01-05] MEDS ORDERED: SERO25TA PO (15:30)
[2018-01-05] MEDS ORDERED: DULO1CAP3 PO (15:30)
[2018-01-05] MEDS ORDERED: GABA300C5 PO (15:30)
[2018-01-05] MEDS ORDERED: POTA-163 PO (15:30)
[2018-01-05] MEDS ORDERED: TAMS0.4C4 PO (15:30)
[2018-01-05] MEDS ORDERED: AMLO5 PO (15:30)
--- NOTE | 2018-01-05 15:31 | HHI.DCPOC ---
Discharge Care Plan Diagnosis: (1) Acute on chronic systolic (congestive) heart failure (2) Cholecystitis (3) Atrial fibrillation Goals to Promote Your Health * To prevent worsening of your condition and complications * To maintain your health at the optimal level Directions to Meet Your Goals Take your medications as prescribed Follow your dietary instruction Follow activity as directed Keep your appointments as scheduled Take your immunizations and boosters as scheduled If your symptoms worsen call your PCP, if no PCP go to Urgent Care Center or Emergency Room Smoking is Dangerous to Your Health. Avoid second hand smoke Call the 24-hour hour crisis hotline for domestic abuse at Pily Walker MD Jan 05, 2018 15:31
[2018-01-05] MEDS ORDERED: PLAV75TA29 PO ×2 (15:36→15:38)
[2018-01-05] MEDS ORDERED: CLOPIDOGREL 75 MG TAB PO SCH (15:45)
--- NOTE | 2018-01-05 16:22 | HHI.PR ---
Addendum to Inpatient Note Addendum Reason: Additional Documentation Additional Information Received a call from patient case coordinator Farzaneh who states that patient has been approved for SNF in [place]. On review of EMR it is noted that general surgery has evaluated patient and recommends keeping RUQ drain in place for a total of 6 weeks, patient will follow up in approximately 1 month with them. Patient will follow up closely with his hand thermal cutter in approximately 1 week. He will be discharged on his home medications which were renewed and placed in patient' s chart. Patient has a discharge transportation time of approximately 5 PM today to [facility]. Discussed with Dr. Junior. Pily Walker MD Jan 05, 2018 16:21
--- NOTE | 2018-01-05 16:28 | HHI.DS ---
Discharge Summary Admission Date Jan 02, 2018 at 18:33 Discharge Date: Jan 05, 2018 Admitting Diagnosis ventricular tachycardia with AICD firing (1) Ventricular tachycardia Plan: Admitted to inpatient [facility] with continuous telemetry and amiodarone drip on 01/02. Rate controlled shortly after admission. Consult cardiology, appreciate recommendations: Restart home medications at home doses to include amiodarone 200 mg daily. Patient's staffing manager is Dr. 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 ACS workup negative. No significant events on telemetry since admission. ICD Codes: I47.2 - Ventricular tachycardia Status: Acute (2) Acute on chronic systolic (congestive) heart failure Plan: Patient has chronic heart failure with reduced EF with most recent EF documented October 2017 to be 25-30% with notable diffuse hypokinesis CXR on admission show no acute cardiopulmonary findings and no evidence of pulmonary congestion * Restart patient's home medications to include Spironolactone 25 mg twice daily , aspirin 81 mg daily, lisinopril 10 mg daily, carvedilol 12.5 mg daily. Patient also on amlodipine 5 mg daily. * Holding furosemide 40 mg on 01/03 as patient does not appear to be in fluid overload and patient complains of urinary frequency while on this medication * Daily weights: 1 kg increase since admission, suspect different scales used, will monitor * Consider giving one time dose of furosemide 40 mg if patient showing signs of fluid overload, shortness of breath ICD Codes: I50.23 - Acute on chronic systolic (congestive) heart failure Status: Chronic (3) HTN (hypertension) Plan: Hypertensive emergency noted on admission, resolved since restarting home medications. Hospital course: Patient noted to be hypertensive during ED evaluation. Patient had not been on his blood pressure medications for more than 3 days. Restarted carvedilol, amlodipine, lisinopril, spironolactone as noted above. ICD Codes: I10 - Essential (primary) hypertension Status: Chronic (4) Atrial fibrillation Plan: Patient has chronic A. fib on Eliquis, aspirin, Plavix. Plavix not restarted at admission. We will continue all three meds at time of discharge because he was discharged on them December 26 and he is noted to have had stent placement on December 18. Monitor on telemetry ICD Codes: I48.91 - Unspecified atrial fibrillation Status: Chronic (5) Cholecystitis Plan: IR consulted, no signs of infection with drain currently, anticipate removal 01/05. General surgery consulted. Hospital Course: Patient with acute persistent cholecystitis for which patient had approximately 2 week hospital stay in late November, was just discharged on December 26. He was a poor surgical candidate given heart failure and cholecystitis was serially monitored by imaging. IR initially placed percutaneous angela drain on 12/14 under fluoroscopy and ultrasound. IR replaced angela tube on 12/20 after patient pulled it out. He is noted to have been seen in the ED on 12/29 with vague symptoms and negative lab workup. He was noted to have been discharged on Augmentin 5 days but this course was completed. Lipase within normal limits on admission. Gallbladder ultrasound showing decompressed gallbladder, decreased diameter of common bile duct. ICD Codes: K81.9 - Cholecystitis, unspecified Status: Acute (6) Anemia Plan: Noted. Suspect this is related to chronic disease. MCV within normal limits. Hemoglobin of 10.4 on admission, 9.3 on 01/04/18. Will monitor, continue workup as indicated. ICD Codes: D64.9 - Anemia, unspecified Status: Acute (7) Hyperlipidemia Plan: Patient was discharged on atorvastatin 40 mg nightly at time of last discharge, will continue this. ICD Codes: E78.5 - Hyperlipidemia, unspecified Status: Chronic (8) Seizure disorder Plan: Patient appears to have a chronic seizure disorder given he is on valproate. He is also on gabapentin but this may be for neuropathy. We will continue home dose valproate DR 500 mg PO 3 times daily and gabapentin 300 mg p.o. 3 times daily. Patient will be placed on seizure precaution and fall precautions, currently OOB with assistance ICD Codes: G40.909 - Epilepsy, unspecified, not intractable, without status epilepticus Status: Chronic (9) Depression Plan: Patient was a history of depression on Seroquel 25 mg twice daily and duloxetine 60 mg daily. Will continue these. Patient does deny any psychiatric history ICD Codes: F32.9 - Major depressive disorder, single episode, unspecified Status: Chronic (10) BPH (benign prostatic hyperplasia) Plan: Restarted home dose Flomax 0.8 mg at bedtime, making urine ICD Codes: N40.0 - Benign prostatic hyperplasia without lower urinary tract symptoms Status: Chronic Consultants Cardiology, General Surgery, Palliative Care Procedures AICD interrogation 01/02 Brief History Patient is a 72 year old male with history of CAD, recent cardiac stent, remote CABG, and recent gallbladder drain placement for cholecystitis. He presents via [facility] today for workup of AICD firing. He notes the AICD fired at around 2pm today. He was sitting, then stood, had shortness of breath acutely, then felt a "lightning bolt" in his chest. He could breath afterward, but felt "goofy" after that which he thinks is related to AICD. This was the first time ever having AICD fire in 3-4 years of having it. He hasn't been feeling well this week, went to hospital a few days ago for GI pain. Right now he is having pain in the "whole body" and has a headache which is reportedly severe, from lower neck to top of head since the AICD fired. He did not have a fall after it firing. He called 911 for evaluation. He has drain in the RUQ, which he notes that it was supposed to be removed today. The drain site hurts. Has nausea, no vomiting. No chest pain all day today or in the last week aside from AICD event. Had URI illness; over the last three weeks he had shortness of breath, got a shot of He is noted to have had biliary drain placed during recent hospitalization. On review of EMR, he was hospitalized December 12 through December 26 for acute cholecystitis management and was noted to have during the hospital stay acute respiratory failure and exacerbation of congestive heart failure. Chronic diseases include coronary artery disease, hypertension, and A. fib which were noted during that hospitalization. He did receive bare-metal stent placement on December 18 and IR placement of gallbladder tube with replacement. He was discharged with a 5 day course of Augmentin, prednisone 10 mg Dosepak, aspirin/ Plavix/Eliquis, Lasix, amlodipine, Seroquel, and Spironolactone which were initiated during that hospital stay and he was also continued on other home medications is noted in discharge documentation. Patient has limited understanding of his medical conditions and some history is obtained from the chart. Of note, patient states he has not taken his meds in the last 3-4 days because he had increased urinary frequency and dysuria and he thought his medications are playing a role. CBC/BMP: 01/04/18 1341 01/05/18 1423 Significant Findings Laboratory Tests Test 01/02/18 21:04 01/02/18 21:30 01/03/18 04:17 01/04/18 13:41 Urine Mucus FEW /lpf (OCC) Red Blood Count 2.85 MIL/MM3 (4.50-5.90) 2.83 MIL/MM3 (4.50-5.90) Hemoglobin 9.1 GM/DL (13.0-17.0) 9.3 GM/DL (13.0-17.0) Hematocrit 27.2 % (39.0-51.0) 27.3 % (39.0-51.0) Monocytes (%) (Auto) 11.9 % (0.0-8.0) 8.8 % (0.0-8.0) Monocytes # (Auto) 1.1 TH/MM3 (0-0.9) Blood Urea Nitrogen 23 MG/DL (7-18) 28 MG/DL (7-18) Albumin 2.2 GM/DL (3.4-5.0) Calcium Level 8.1 MG/DL (8.5-10.1) 8.4 MG/DL (8.5-10.1) Chloride Level 112 MEQ/L (98-107) 111 MEQ/L (98-107) Carbon Dioxide Level 20.0 MEQ/L (21.0-32.0) Estimat Glomerular Filtration Rate 77 ML/MIN (>89) 64 ML/MIN (>89) Test 01/05/18 14:23 Blood Urea Nitrogen 26 MG/DL (7-18) Potassium Level 5.4 MEQ/L (3.5-5.1) Estimat Glomerular Filtration Rate 69 ML/MIN (>89) Imaging Last Impressions Chest X-Ray 01/02/18 1601 Signed Impressions: Service Date/Time: Tuesday, January 02, 2018 16:47 - CONCLUSION: 1. No acute cardiopulmonary findings. 2. Old, healed posterior rib fractures bilaterally. 3. Appearance of the chest is similar compared to prior dated 12/29/17 Sandeep Allison MD Gall Bladder Ultrasound 01/02/18 0000 Signed Impressions: Service Date/Time: Tuesday, January 02, 2018 21:42 - CONCLUSION: 1. Gallbladder drain present. The gallbladder is decompressed. Thick wall again noted. 2. Decreased diameter of the common bile duct. Iain Barnett MD PE at Discharge GEN: Well-developed, well-nourished patient. No acute distress. Resting comfortably in bed. SKIN: No rashes, ecchymoses or lesions. Warm and dry. CV: Regular rate and rhythm without obvious murmurs. LUNGS: Clear to auscultation bilaterally. Normal respiratory effort. No wheezes , rales, rhonchi. GI: Soft, nondistended. Bowel sounds present. RUQ drain in place, draining small amount of bilious fluid without blood. Dressing site is clean and dry dated 12/25/2017. EXT: No edema. No calf tenderness. Patient is weak but lifts both lower extremities with max 4/5 strength and good effort. NEURO/PSYCH: Awake, alert. Appropriate insight and judgment. Normal speech Hospital Course Patient is a 72-year-old male who presented via [facility] after AICD fired. History significant for coronary artery disease, seizure disorder, A. fib, CHF, recent cholecystitis without surgical intervention. AICD interrogated and was responding to persistent V tach. Telemetry initiated at time of admission and no repeat events were noted. Etiology was that patient was not on his amiodarone at home for 4 days. It was restarted via drip and then transitioned to p.o. regimen with no change in home dose. Regarding cholecystitis, patient was evaluated in the hospital recently and was deemed to be a poor surgical candidate. He has indwelling drain. He was reevaluated this hospital stay by general surgery who recommended patient keep drain in for another month and have outpatient reevaluation for removal. Palliative care consulted for hospital stay for goals of care discussion. He was discharged on 01/05 to [facility] given weakness due to comorbidities. Pt Condition on Discharge: Stable Discharge Disposition: Discharge to SNF Discharge Instructions DIET: Follow Instructions for: Heart Healthy Diet Activities you can perform: Regular-No Restrictions Other Activity Instructions: Ambulate with assistance Follow up Referrals: Cardiology - 1 Week with Alvarez Livingston MD PCP Follow-up - 1 Week Surgical - 4 Weeks New Medications: Acetaminophen (Eq Acetaminophen) 325 Mg Tab 650 MG PO Q4H PRN for TEMP > 100.4, #30 TAB Changed Medications: Furosemide (Furosemide) 40 Mg Tab 40 MG PO EVERY OTHER DAY for Blood Pressure Management, #30 TAB (Changed from: DAILY) Potassium Chloride ER (Potassium Chloride ER) 20 Meq Tab 20 MEQ PO DAILY for Electrolyte Replacement, #30 TAB 0 Refills (Medication details modified) Take one tablet daily if taking Lasix. Continued Medications: Amiodarone (Amiodarone) 200 Mg Tab 200 MG PO DAILY for Regulate Heart Beat, #30 TAB 0 Refills (This prescription has been renewed) Amlodipine (Norvasc) 5 Mg Tab 5 MG PO DAILY for Blood Pressure Management, #30 TAB (This prescription has been renewed) Apixaban (Eliquis) 5 Mg Tab 5 MG PO BID for Blood Clot Prevention, #60 TAB 0 Refills (This prescription has been renewed) Aspirin (Tgt Aspirin) 81 Mg Chw 81 MG PO DAILY for Blood Clot Prevention, #30 EA (This prescription has been renewed) Atorvastatin (Atorvastatin) 40 Mg Tab 40 MG PO HS for heart disease, #30 TAB (This prescription has been renewed) Carvedilol (Coreg) 12.5 Mg Tab 12.5 MG PO DAILY for Regulate Heart Beat, #30 TAB (This prescription has been renewed) Clopidogrel (Plavix) 75 Mg Tab 75 MG PO DAILY for Blood Clot Prevention, #30 TAB 0 Refills (This prescription has been renewed) Divalproex DR (Divalproex DR) 500 Mg Tabdr 500 MG PO TID for Control Seizures, #90 TAB 0 Refills (This prescription has been renewed) Duloxetine DR (Duloxetine DR) 60 Mg Capdr 60 MG PO DAILY, #30 CAP 0 Refills (This prescription has been renewed) Gabapentin (Gabapentin) 300 Mg Cap 300 MG PO TID, #90 CAP 0 Refills (This prescription has been renewed) Lisinopril (Lisinopril) 10 Mg Tab 10 MG PO DAILY for heart failure, #30 TAB 0 Refills (This prescription has been renewed) Multiple Vitamin (Multiple Vitamin) 1 Tab 1 TAB PO DAILY for Nutritional Supplement, #30 TAB 0 Refills (This prescription has been renewed) Quetiapine (Seroquel) 25 Mg Tab 25 MG PO BID@,12 for anxiety, #60 TAB (This prescription has been renewed) Spironolactone (Aldactone) 25 Mg Tab 25 MG PO BID@,18 for Blood Pressure Management, #60 TAB (This prescription has been renewed) Tamsulosin (Tamsulosin) 0.4 Mg Cap 0.8 MG PO HS for Manage Prostate Problems, #30 CAP 0 Refills (This prescription has been renewed) Tramadol (Tramadol) 50 Mg Tab 50 MG PO Q6H PRN for PAIN, #30 TAB 0 Refills (This prescription has been renewed ) Discontinued Medications: Hydrocodone-Acetaminophen ([place]) 5 Mg-325 Mg Tab 1 TAB PO Q6H PRN for PAIN, #30 TAB 0 Refills Pily Walker MD Jan 05, 2018 16:28
== END 2018-01-05 18:00 | DRG 308 ==
LOC: NEPE 15:23 → NEDA 18:33 → HCIS 22:57
PROVIDERS: ADMIT Family Medicine; ATTEND Family Medicine
PROC: 4B02XTZ Measurement of Cardiac Defibrillator, External Approach (ICD-10-PCS; principal; 2018-01-02)
DX: I47.2 Ventricular tachycardia (principal); I50.23 Acute on chronic systolic (congestive) heart failure; D64.9 Anemia, unspecified; G40.909 Epilepsy, unspecified, not intractable, without status epilepticus; I25.5 Ischemic cardiomyopathy; K81.9 Cholecystitis, unspecified; I25.10 Atherosclerotic heart disease of native coronary artery without angina pectoris; I16.1 Hypertensive emergency; Z95.1 Presence of aortocoronary bypass graft; Z95.810 Presence of automatic (implantable) cardiac defibrillator; I48.2 Chronic atrial fibrillation; Z79.02 Long term (current) use of antithrombotics/antiplatelets; E78.5 Hyperlipidemia, unspecified; F33.42 Major depressive disorder, recurrent, in full remission; I11.0 Hypertensive heart disease with heart failure; Z91.14 Patient's other noncompliance with medication regimen; Z79.82 Long term (current) use of aspirin
CPT/HCPCS: 71046; 76705; 80048; 80053; 81001; 82550; 83690; 83735; 83880; 84484; 85025; 85610; 85730; 93005; 99291; J0282; J2405; J7050

== ENCOUNTER 2018-02-05 12:29 | Inpatient (IN) | payer MEDICARE, MEDICAID ==
[~2018-02-05] VITALS: Ht 170.2 cm; Wt 79.8 kg
[~2018-02-05 12:29] MED LIST changes: +ACET325T15 PO; -AUGM875T3 PO; +DEXAMETHASONE SOD PHOS 4 MG/ML VIAL IV ONE; +EPINEPHrine HCL (1:1000) 1 MG/ML VIAL IV ONE; +GLYCOPYRROLATE 1 MG/5 ML SYRINGE IV PUSH ONE; +LACTATED RINGER'S 1000 ML INJ 1,000 ML IV ONE; +LIDOCAINE HCL 1% PF 5 ML SYRINGE OTHER ONE; +NEOSTIGMINE 5 MG/5 ML SYRINGE IV PUSH ONE; -NORC5TAB PO; +ONDANSETRON HCL 4 MG/2 ML VIAL IV ONE; -PRED10PA PO; +PROPOFOL 200 MG/20 ML AMP IV ONE; +ROCURONIUM INJ 50 MG/5 ML SYRINGE IV PUSH ONE; -SIMV20TA PO; +SODIUM CHLORID 0.9% 500 ML INJ 500 ML IV ONE; +ePHEDrine/NS 25 MG/5 ML SYRINGE IV ONE
[2018-02-05] MEDS ORDERED: MILKSUS PO (13:14)
[2018-02-05] MEDS ORDERED: LIPI40TA PO (13:14)
[2018-02-05] MEDS ORDERED: ZOFR4TAB PO (13:14)
[2018-02-05] MEDS ORDERED: ACETAMINOPHEN 1000 MG/100 ML 100 ML IV ONE (13:17)
[2018-02-05] MEDS ORDERED: fentaNYL CITRATE 250 MCG/5 ML AMP ONE (13:17)
[2018-02-05] MEDS ORDERED: VANCOMYCIN 1000 MG/NS 250 ML ON-CALL IV SCH ×2 (13:30)
[2018-02-05] MEDS ORDERED: SODIUM CHLORID 0.9% 500 ML IV PRN (13:30)
[2018-02-05] MEDS ORDERED: ACETAMINOPHEN 1000 MG/100 ML 100 ML IV SCH (13:30)
[2018-02-05] MEDS ORDERED: LACTATED RINGER'S 1000 ML IV PRN (13:30)
[2018-02-05] MEDS ORDERED: CHLORHEXIDINE GLUCONATE 2 % 1 PACK (2 CLOTHS) TOPICAL PRN (13:30)
[2018-02-05] MEDS ORDERED: POVIDONE IODINE 5% (ANTISEPSIS KIT) 4 APPLICATIONS EACH NARE PRN (13:30)
[2018-02-05] MEDS ORDERED: METOPROLOL TARTRATE 25 MG TAB PO PRN (13:30)
[2018-02-05] MEDS ORDERED: ceFAZolin 1,000 MG/NS 100 ML IV SCH ×2 (13:30)
[2018-02-05] MEDS ORDERED: BUPIVACAINE/EPINEPHRINE 0.25% PF 10 ML VIAL INFIL ONE ×2 (14:39→15:32)
[2018-02-05] MEDS ORDERED: SODIUM CHLOR 0.9% 1000 ML INJ 1,000 ML IV SCH (15:55)
--- NOTE | 2018-02-05 15:55 | HHI.PR ---
cc: Sergio Martinez MD Immediate Post Op Note Procedure Date: Feb 05, 2018 Pre Op Diagnosis: Acute Cholecystitis Post Op Diagnosis: Necrotizing cholecystitis with sepsis Surgeon: Sergio Martinez Liaison Planner(s): Sanjay Doss CFA Procedure: Laparoscopic cholecystectomy Findings: Cholecystitis with gross purulence in gallbladder with spillage Complications: None Specimen(s) removed: Gallbladder and contents to pathology Estimated blood loss: 50 ml Anesthesia: General Drains: DILAI IVF (1000 ml) Patient to: PACU Patient Condition: Good Date/Time of Procedure: SEE SURGICAL CARE RECORD Sergio Martinez MD Feb 05, 2018 15:55
[2018-02-05] MEDS ORDERED: diphenhydrAMINE HCL 50 MG/ML VIAL IVP PRN (16:00)
[2018-02-05] MEDS ORDERED: HYDROmorphone HCL PF 1 MG/ML VIAL IV PUSH PRN (16:00)
[2018-02-05] MEDS ORDERED: ACETAMINOPHEN/HYDROcodone 325 MG/5 MG TAB PO PRN (16:00)
[2018-02-05] MEDS ORDERED: PIPERACIL-TAZO 3.375 GM PREMIX 50 ML IV SCH (16:00)
[2018-02-05] MEDS ORDERED: Post-op Orders (for Pharmacy) XX ONE (16:00)
[2018-02-05] MEDS ORDERED: ONDANSETRON HCL 4 MG/2 ML VIAL IV PUSH PRN (16:00)
[2018-02-05] MEDS ORDERED: NALOXONE HCL 0.4 MG/ML AMP IV PUSH PRN (16:00)
[2018-02-05] MEDS ORDERED: *MEPERIDINE 25 MG INJ VIAL PERIprocedural Use ONLY ONE (16:20)
[2018-02-05] MEDS ORDERED: DO NOT ADM ANY ANTICOAGULANT DRUGS PRN (16:30)
[2018-02-05] MEDS: PIPERACIL-TAZO 3.375 GM PREMIX 50 ML IV SCH ×2 (16:45→21:44)
--- NOTE | 2018-02-05 16:58 | MP ---
cc: Sergio Martinez MD DATE OF OPERATION: 02/05/2018 PROCEDURE: 1. Laparoscopic cholecystectomy. 2. Primary umbilical hernia repair. PREOPERATIVE DIAGNOSIS: Acute cholecystitis. POSTOPERATIVE DIAGNOSIS: Necrotizing cholecystitis with purulence. ANESTHESIA: General endotracheal. SURGEON: MD Juan ESTIMATED BLOOD LOSS: 50 mL. FLUIDS: 1000 mL crystalloid. COMPLICATIONS: None. DRAINS: DILIA x1. SPECIMENS: Gallbladder and contents to pathology. FINDINGS Purulence within the gallbladder expressed during dissection. PROCEDURE IN DETAIL: The patient was taken to the operating room and placed on the operating table in the supine position. After an adequate level of general endotracheal anesthesia was achieved, the abdomen was prepped and draped in the usual fashion. Timeout was taken confirming we had the correct patient, site, and procedure to be performed. Skin and subcutaneous tissue was infiltrated with local anesthetic. An incision was made in the umbilicus and carried through the subcutaneous tissues. The preperitoneal fat was in this patient's umbilical hernia site and the peritoneal cavity directly visualized. A 12 mm balloon trocar was inserted and the balloon inflated. The abdomen was insufflated. The patient was placed in reverse Trendelenburg position. A 0-degree, 5 mm laparoscope was inserted and the patient was seen to have virtually no adhesions in the right upper quadrant. This allowed for the procedure to proceed laparoscopically. A 5 mm trocar was placed in the upper midline to the right of the falciform ligament with a second and third trocar placed in the right subcostal region. All entered the abdominal cavity under direct vision uneventfully. The gallbladder was grasped and retracted upward. Omental adhesions were taken down off of the gallbladder which appeared to be acutely inflamed. The gallbladder was then grasped and retracted upward. The gallbladder wall was pierced and purulent material exuded. This was quickly aspirated. The gallbladder was then retracted upward and the adhesions were taken down from around the infundibulum of the gallbladder. The cystic duct infundibular junction and cystic artery were both circumferentially dissected. The cystic artery appeared to have 2 branches and both of these were doubly clipped proximally, singly clipped on the gallbladder side and divided. As the patient had normal liver function tests and normal caliber common bile duct, cholangiogram was not obtained. The cystic duct was doubly clipped distally, singly clipped on the gallbladder side and divided as well. The gallbladder was dissected off of the liver bed with electrodissection. The gallbladder was placed into an EndoCatch device and removed via the umbilical port while observing via the upper 5 mm trocar site. The specimen was passed off the table. The upper abdomen was revisualized. The upper abdomen was copiously irrigated. As there was quite a large raw surface area, the liver bed was made hemostatic. The cystic artery stumps, cystic duct stump and liver bed were then seen to be clean and dry. A Eliud-Madrid drain was then brought in via the upper 5 mm trocar site and out via the lateral-most 5 mm trocar site. The drain was placed in the area of the liver bed. The drain was affixed to the skin with a 3-0 nylon suture. Insufflation was discontinued and the remaining 5 mm trocar removed. No bleeding was noted from any of the trocar sites during desufflation. The laparoscope and umbilical port were then removed. The fascia was closed in the umbilicus with 0 Vicryl suture and then into a simple interrupted fashion. The patient's previous umbilical hernia was repaired in this fashion. The skin was closed at the trocar sites with 4-0 Vicryl in an interrupted buried fashion. The 4 x 4 was placed around the drain and the patient was extubated and taken back to the recovery room in stable condition. Sponge and needle counts were reported to be correct. The patient tolerated the procedure well. MD JOSE ROBERTO De Souza/SARTHAK , 04:07 PM , 04:57 PM
[2018-02-05 18:00] VITALS: PULSE 48
[2018-02-05 20:00] VITALS: BP 117/59; PULSE 54; RESP 26; TEMP 97.7; O2SAT 95
[2018-02-05 20:15] VITALS: O2SAT 96
[2018-02-05] MEDS: ACETAMINOPHEN/HYDROcodone 325 MG/5 MG TAB PO PRN (21:44)
[2018-02-05 22:00] VITALS: PULSE 58
[2018-02-05] MEDS: PCA - TOTAL MG MORPHINE DELIVERED PER SHIFT SCH (22:00)
[2018-02-05] MEDS: HYDROmorphone HCL PF 2 MG/ML VIAL IV PUSH PRN (23:18)
[2018-02-06] VITALS (14 sets, daily range): BP systolic 125–149; BP diastolic 59–66; PULSE 54–85; RESP 13–26; TEMP 97.4–98.5; O2SAT 93–98
[2018-02-06] MEDS: HYDROmorphone HCL PF 2 MG/ML VIAL IV PUSH PRN ×2 (01:31→17:57)
[2018-02-06] MEDS: PIPERACIL-TAZO 3.375 GM PREMIX 50 ML IV SCH ×4 (03:34→23:36)
[2018-02-06] MEDS: PCA - TOTAL MG MORPHINE DELIVERED PER SHIFT SCH ×3 (03:34→22:00)
[2018-02-06 06:14] LABS: AUTOMATED NEUTROPHIL # 7.6 TH/MM3 (1.8-7.7); BASOPHIL % 0.1 % (0.0-2.0); HEMATOCRIT 22.3 % (39.0-51.0); HEMOGLOBIN 7.3 GM/DL (13.0-17.0); LYMPH % 8.6 % (9.0-44.0); LYMPHOCYTE # 0.7 TH/MM3 (1.0-4.8); MEAN CELL VOLUME 94.5 FL (80.0-100.0); MEAN CORPUSCULAR HEMOGLOBIN 30.8 PG (27.0-34.0); MEAN CORPUSCULAR HGB CONC 32.6 % (32.0-36.0); MEAN PLATELET VOLUME 7.5 FL (7.0-11.0); MONO % 4.2 % (0.0-8.0); MONOCYTE # 0.4 TH/MM3 (0-0.9); NEUT % 87.1 % (16.0-70.0); PLATELET COUNT 117 TH/MM3 (150-450); RED BLOOD COUNT 2.36 MIL/MM3 (4.50-5.90); RED CELL DISTRIBUTION WIDTH 14.8 % (11.6-17.2); WHITE BLOOD COUNT 8.7 TH/MM3 (4.0-11.0)
[2018-02-06 06:26] LABS: ALBUMIN 1.9 GM/DL (3.4-5.0); DIRECT BILIRUBIN ADULT 0.1 MG/DL (0.0-0.2)
[2018-02-06 06:27] LABS: INDIRECT BILIRUBIN 0.1 MG/DL (0.0-0.8); TOTAL BILIRUBIN ADULT 0.2 MG/DL (0.2-1.0)
--- NOTE | 2018-02-06 09:39 | PD.CONS ---
HPI Service [facility] Hospitalists Consult Requested By Dr. Martinez Reason for Consult Medical management Primary Care Physician No Primary Care Physician Diagnoses: (1) Chronic systolic CHF (congestive heart failure) (2) BPH (benign prostatic hyperplasia) (3) Seizure disorder (4) Atrial fibrillation (5) CAD (coronary artery disease) (6) HTN (hypertension) (7) Hyperlipidemia History of Present Illness Patient is a 72-year-old male admitted for laparoscopic cholecystectomy. Hospitalist consult was requested for medical management. The patient is seen in the intensive care unit. Reports some abdominal pain at the site of surgery , but otherwise has no complaints this morning. He denies chest pain or dyspnea. He is a relatively poor historian, consistently answering questions with "I cannot think this morning, you should just Google my name and find out" . Further information is gathered from discussion with the patient's nurse and review of medical records from his prior admission in December 2017. Review of Systems Constitutional: DENIES: Fever, Chills, Night Sweats Eyes: DENIES: Blurred vision, Vision loss Ears, nose, mouth, throat: DENIES: Hearing loss Respiratory: DENIES: Cough, Wheezing, Sputum production, Shortness of breath Cardiovascular: DENIES: Chest pain, Palpitations, Dyspnea on Exertion, Lower Extremity Edema Gastrointestinal: COMPLAINS OF: Abdominal pain, DENIES: Constipation, Diarrhea , Nausea, Vomiting Genitourinary: DENIES: Urinary frequency, Urinary incontinence, Urgency, Hematuria, Dysuria, Nocturia Musculoskeletal: DENIES: Joint pain, Muscle aches Integumentary: DENIES: Pruritus, Rash Hematologic/lymphatic: DENIES: Bruising Neurologic: DENIES: Headache Past Family Social History Allergies: Coded Allergies: No Known Allergies (Verified Allergy, Unknown, 02/05/18) benzoic acid (Verified Allergy, Unknown, 02/05/18) levofloxacin (Verified Allergy, Unknown, 02/05/18) morphine (Verified Allergy, Unknown, 02/05/18) rivaroxaban (Verified Allergy, Unknown, 02/05/18) Past Medical History Chronic systolic congestive heart failure Hypertension Atrial fibrillation Hyperlipidemia Questionable history of seizure disorder Depression Past Surgical History CABG AICD placement Cardiac catheterization with placement of 2 stents Left shoulder surgery Reported Medications Flomax 0.8 mg nightly Eliquis 5 mg twice daily Plavix 75 mg daily Amiodarone 200 mg daily Atorvastatin 40 mg nightly Carvedilol 12.5 mg daily Norvasc 5 mg daily Lisinopril 10 mg daily Spironolactone 25 mg twice daily Aspirin 81 mg daily Tramadol as needed Tylenol as needed Divalproex DR 500 mg 3 times daily Gabapentin 300 mg 3 times daily Cymbalta 60 mg daily Seroquel 25 mg twice daily Potassium chloride 20 mEq daily Furosemide 40 mg every other day Milk of magnesia as needed Zofran as needed Multivitamin daily Family History Patient denies family history of cardiac disease, diabetes, cancer. Reports that his siblings have had problems with drug abuse. Social History Quit smoking 4 years ago. No illicit drug use in the last 10 years. Denies alcohol use. Physical Exam Vital Signs Vital Signs Date Time Temp Pulse Resp B/P (MAP) Pulse Ox O2 Delivery O2 Flow Rate FiO2 02/06/18 08:19 95 Nasal Cannula 1.50 02/06/18 06:00 66 02/06/18 04:00 54 26 130/63 (85) 93 02/06/18 04:00 54 02/06/18 02:00 56 02/06/18 00:00 57 18 125/60 (81) 93 02/06/18 00:00 57 02/05/18 22:00 58 02/05/18 20:15 96 Nasal Cannula 1.50 02/05/18 20:00 54 02/05/18 20:00 97.7 54 26 117/59 (78) 95 02/05/18 18:00 48 02/05/18 16:45 97.7 52 15 106/53 (70) 95 Nasal Cannula 2 02/05/18 16:30 49 16 111/51 (71) 95 Nasal Cannula 2 02/05/18 16:15 50 22 119/57 (77) 97 Nasal Cannula 2 02/05/18 15:55 97.5 51 20 109/49 (69) 97 Nasal Cannula 2 02/05/18 13:39 97.5 52 20 122/86 (98) 98 Physical Exam GENERAL: Well-nourished, well-developed male in no acute distress. HEENT: Normocephalic, atraumatic. Pupils equal, round and reactive. Extraocular movements intact. No scleral icterus. No injection or drainage. Oropharynx is clear. Mucous membranes are moist. Dentures. CARDIOVASCULAR: Regular rate and rhythm. RESPIRATORY: Clear to auscultation. No wheezes, rales, or rhonchi. Breathing is non-labored. GASTROINTESTINAL: Abdomen soft, appropriately tender to palpation, nondistended. EXTREMITIES: No lower extremity edema. No calf tenderness. SCDs. PSYCH: Alert and oriented x 3. Laboratory Laboratory Tests Test 02/06/18 05:09 White Blood Count 8.7 Red Blood Count 2.36 Hemoglobin 7.3 Hematocrit 22.3 Mean Corpuscular Volume 94.5 Mean Corpuscular Hemoglobin 30.8 Mean Corpuscular Hemoglobin Concent 32.6 Red Cell Distribution Width 14.8 Platelet Count 117 Mean Platelet Volume 7.5 Neutrophils (%) (Auto) 87.1 Lymphocytes (%) (Auto) 8.6 Monocytes (%) (Auto) 4.2 Eosinophils (%) (Auto) 0.0 Basophils (%) (Auto) 0.1 Neutrophils # (Auto) 7.6 Lymphocytes # (Auto) 0.7 Monocytes # (Auto) 0.4 Eosinophils # (Auto) 0.0 Basophils # (Auto) 0.0 CBC Comment DIFF FINAL Differential Comment Total Bilirubin 0.2 Direct Bilirubin 0.1 Indirect Bilirubin 0.1 Aspartate Amino Transf (AST/SGOT) 70 Alanine Aminotransferase (ALT/SGPT) 33 Alkaline Phosphatase 58 Total Protein 5.0 Albumin 1.9 Result Diagram: 02/06/18 0509 Assessment and Plan Assessment and Plan 1. Cholecystitis: Status post laparoscopic cholecystectomy. Management per general surgery. 2. Coronary artery disease: History of CABG. Continue carvedilol, statin. Resume aspirin, Plavix, Eliquis when okay with surgery. 3. Chronic systolic congestive heart failure: Not currently in exacerbation. Echocardiogram in October showed ejection fraction of 25-30% with diffuse hypokinesis. Continue Lasix, spironolactone, KIMANI inhibitor, beta-hina. 4. Questionable seizure disorder: Patient is on Depakote and gabapentin. He denies having history of seizures, reporting a vague reason for taking the gabapentin related to writing songs for days at a time and not sleeping. 5. Hyperlipidemia: Continue statin 6. Depression: Continue Cymbalta, Seroquel. 7. Atrial fibrillation: Resume Eliquis when okay with general surgery. 8. History of ventricular tachycardia: Monitor on telemetry. AICD in place. Follows with Dr. Livingston per cardiology. 9. DVT prophylaxis: SCDs. Resume Eliquis when okay with general surgery. Parveen Hines MD Feb 06, 2018 09:39
[2018-02-06] MEDS: amLODIPine BESYLATE 5 MG TAB PO SCH (09:45)
[2018-02-06] MEDS: CARVEDILOL 12.5 MG TAB PO SCH (09:45)
[2018-02-06] MEDS: AMIODARONE 200 MG TAB PO SCH (09:45)
[2018-02-06] MEDS: QUEtiapine FUMARATE 25 MG TAB PO SCH (11:29)
[2018-02-06] MEDS: GABAPENTIN 300 MG CAP PO SCH ×2 (11:29→17:57)
[2018-02-06] MEDS: ACETAMINOPHEN/HYDROcodone 325 MG/5 MG TAB PO PRN ×5 (11:31→23:39)
[2018-02-06 12:30] LABS: AUTOMATED NEUTROPHIL # 11.8 TH/MM3 (1.8-7.7); BASOPHIL % 0.2 % (0.0-2.0); HEMATOCRIT 28.1 % (39.0-51.0); HEMOGLOBIN 9.3 GM/DL (13.0-17.0); LYMPH % 10.3 % (9.0-44.0); LYMPHOCYTE # 1.5 TH/MM3 (1.0-4.8); MEAN CELL VOLUME 91.8 FL (80.0-100.0); MEAN CORPUSCULAR HEMOGLOBIN 30.3 PG (27.0-34.0); MEAN PLATELET VOLUME 7.2 FL (7.0-11.0); MONO % 8.3 % (0.0-8.0); MONOCYTE # 1.2 TH/MM3 (0-0.9); NEUT % 81.2 % (16.0-70.0); PLATELET COUNT 160 TH/MM3 (150-450); RED BLOOD COUNT 3.06 MIL/MM3 (4.50-5.90); WHITE BLOOD COUNT 14.5 TH/MM3 (4.0-11.0)
[2018-02-06 12:40] LABS: BICARBONATE 29.8 MEQ/L (21.0-32.0); CALCIUM 8.5 MG/DL (8.5-10.1); CREATININE 1.23 MG/DL (0.60-1.30)
[2018-02-06] MEDS: DIVALPROEX DR 500 MG TABEC PO SCH ×2 (14:00→17:57)
--- NOTE | 2018-02-06 14:58 | HHI.PR ---
Subjective Subjective Notes Resting in bed Just pulled Cabrera catheter out Objective Vitals/I&O Vital Signs Date Time Temp Pulse Resp B/P (MAP) Pulse Ox O2 Delivery O2 Flow Rate FiO2 02/06/18 12:31 18 02/06/18 08:19 95 Nasal Cannula 1.50 02/06/18 06:00 66 02/06/18 04:00 130/63 (85) 02/05/18 20:00 97.7 Labs Laboratory Tests Test 02/06/18 05:09 02/06/18 12:01 White Blood Count 8.7 14.5 Red Blood Count 2.36 3.06 Hemoglobin 7.3 9.3 Hematocrit 22.3 28.1 Mean Corpuscular Volume 94.5 91.8 Mean Corpuscular Hemoglobin 30.8 30.3 Mean Corpuscular Hemoglobin Concent 32.6 33.0 Red Cell Distribution Width 14.8 15.0 Platelet Count 117 160 Mean Platelet Volume 7.5 7.2 Neutrophils (%) (Auto) 87.1 81.2 Lymphocytes (%) (Auto) 8.6 10.3 Monocytes (%) (Auto) 4.2 8.3 Eosinophils (%) (Auto) 0.0 0.0 Basophils (%) (Auto) 0.1 0.2 Neutrophils # (Auto) 7.6 11.8 Lymphocytes # (Auto) 0.7 1.5 Monocytes # (Auto) 0.4 1.2 Eosinophils # (Auto) 0.0 0.0 Basophils # (Auto) 0.0 0.0 CBC Comment DIFF FINAL DIFF FINAL Differential Comment Total Bilirubin 0.2 Direct Bilirubin 0.1 Indirect Bilirubin 0.1 Aspartate Amino Transf (AST/SGOT) 70 Alanine Aminotransferase (ALT/SGPT) 33 Alkaline Phosphatase 58 Total Protein 5.0 Albumin 1.9 Blood Urea Nitrogen 21 Creatinine 1.23 Random Glucose 95 Calcium Level 8.5 Magnesium Level 2.0 Sodium Level 139 Potassium Level 4.8 Chloride Level 104 Carbon Dioxide Level 29.8 Anion Gap 5 Estimat Glomerular Filtration Rate 58 Cardiovascular: Regular Lungs: Clear Abdomen: Other (mildly distended; lap sites c/d/i; DILIA with thin bloody drainage ), Post-op tenderness Extremities: No edema A/P Assessment and Plan 72 year old male POD1 lap angela; gangrenous -Continue IV antibiotics -Montior Hmg--- 7.3 this morning; recheck at noon 9.3 -Full liquid diet -Continue routine DILIA care -Patient pulled Cabrera out--- having some hematuria -Was going to restart ASA/Plavix but due to hematuria will continue to hold and evaluate tomorrow -Discussed with Dr. Hines -Transfer to 7N when bed becomes available Attending Note - Dr. Martinez Abdomen benign DILIA output serosanguinous, NOT bloody Repeat Hb/Hct stable, same as preop Chronic anemia The exam, history, and the medical decision-making described in the above note were completed with the assistance of the mid-level provider. I reviewed and agree with the findings presented. I attest that I had a [id number] encounter with the patient on the same day, and personally performed and documented my assessment and findings in the medical record. Mag Means/First Víctor EMMANUEL Feb 06, 2018 14:58 Sergio Martinez MD Feb 11, 2018 08:08
[2018-02-06] MEDS: SPIRONOLACTONE 25 MG TAB PO SCH (17:57)
[2018-02-06] MEDS: ATORVASTATIN 40 MG TAB PO SCH (19:46)
[2018-02-06] MEDS: TAMSULOSIN HCL 0.4 MG CAP PO SCH (19:48)
[2018-02-07] VITALS (8 sets, daily range): BP systolic 90–135; BP diastolic 52–69; PULSE 48–84; RESP 16–18; TEMP 97.1–98; O2SAT 91–95
[2018-02-07] MEDS: HYDROmorphone HCL PF 2 MG/ML VIAL IV PUSH PRN ×2 (03:14→06:06)
[2018-02-07] MEDS: ACETAMINOPHEN/HYDROcodone 325 MG/5 MG TAB PO PRN ×2 (04:29→10:35)
[2018-02-07] MEDS: PCA - TOTAL MG MORPHINE DELIVERED PER SHIFT SCH (06:00)
[2018-02-07] MEDS: PIPERACIL-TAZO 3.375 GM PREMIX 50 ML IV SCH ×3 (06:06→17:12)
[2018-02-07] MEDS: QUEtiapine FUMARATE 25 MG TAB PO SCH ×2 (08:36→12:46)
[2018-02-07] MEDS: DIVALPROEX DR 500 MG TABEC PO SCH ×3 (08:36→17:13)
[2018-02-07] MEDS: MULTIVITAMIN TAB PO SCH (08:36)
[2018-02-07] MEDS: amLODIPine BESYLATE 5 MG TAB PO SCH (08:36)
[2018-02-07] MEDS: DULoxetine HCl DR 60 MG CAP PO SCH (08:36)
[2018-02-07] MEDS: CARVEDILOL 12.5 MG TAB PO SCH (08:36)
[2018-02-07] MEDS: POTASSIUM CHLORIDE 20 MEQ CONTROLLED RELEASE TAB PO SCH (08:36)
[2018-02-07] MEDS: LISINOPRIL 10 MG TAB PO SCH (08:37)
[2018-02-07] MEDS: GABAPENTIN 300 MG CAP PO SCH ×3 (08:37→17:14)
[2018-02-07] MEDS: AMIODARONE 200 MG TAB PO SCH (08:37)
[2018-02-07] MEDS: SPIRONOLACTONE 25 MG TAB PO SCH ×2 (08:37→18:00)
--- NOTE | 2018-02-07 11:12 | HHI.PR ---
Subjective Remarks Follow-up coronary artery disease, CHF, A. fib. The patient is reporting pain at the surgical site. No other complaints at this time. Denies bowel movements , but does report flatus. No nausea or vomiting. Objective Vitals Vital Signs Date Time Temp Pulse Resp B/P (MAP) Pulse Ox O2 Delivery O2 Flow Rate FiO2 02/07/18 08:00 97.7 71 18 135/64 (87) 91 02/07/18 04:00 52 02/07/18 04:00 98.0 65 16 135/69 (91) 95 02/07/18 00:00 52 02/07/18 00:00 97.9 84 16 135/62 (86) 95 02/06/18 22:10 97.4 59 16 149/65 (93) 94 02/06/18 22:00 57 02/06/18 20:00 59 02/06/18 20:00 98.5 56 22 137/59 (85) 98 02/06/18 18:27 18 02/06/18 18:00 55 02/06/18 16:00 85 02/06/18 16:00 98.2 85 18 146/65 (92) 94 02/06/18 14:00 64 02/06/18 12:31 18 02/06/18 12:00 59 02/06/18 12:00 98.0 59 20 146/66 (92) 95 I/O 02/06/18 02/06/18 02/06/18 02/07/18 02/07/18 02/07/18 06:59 14:59 22:59 06:59 14:59 22:59 Intake Total 2139 ml 850 ml 950 ml 290 ml Output Total 1230 ml 1640 ml 1100 ml Balance 909 ml 850 ml -690 ml -810 ml Intake Oral 900 ml 240 ml IV Total 2139 ml 850 ml 50 ml 50 ml Output Urine Total 1150 ml 1550 ml 1050 ml Drainage Total 80 ml 90 ml 50 ml # Voids 4 # Bowel Movements 0 0 0 Result Diagram: 02/06/18 1201 02/06/18 1201 Objective Remarks General: No acute distress. Heart: Regular rate and rhythm. No murmur. Lungs: Clear to auscultation bilaterally. No wheezes, rales, or rhonchi. Breathing is nonlabored. Abdomen: Soft, mildly distended. DILIA drain in place. Surgical wounds noted without surrounding erythema or drainage. Tender to palpation in the right upper quadrant. Extremities: No lower extremity edema. Psych: Alert and oriented. Neuro: Normal speech. No focal deficits noted. Procedures 02/05/18 laparoscopic cholecystectomy Urinary Catheter: No Vascular Central Line Catheter: No A/P Problem List: (1) Chronic systolic CHF (congestive heart failure) ICD Code: I50.22 - Chronic systolic (congestive) heart failure (2) BPH (benign prostatic hyperplasia) ICD Code: N40.0 - Benign prostatic hyperplasia without lower urinary tract symptoms Status: Chronic (3) Seizure disorder ICD Code: G40.909 - Epilepsy, unspecified, not intractable, without status epilepticus Status: Chronic (4) Atrial fibrillation ICD Code: I48.91 - Unspecified atrial fibrillation Status: Chronic (5) CAD (coronary artery disease) ICD Code: I25.10 - Atherosclerotic heart disease of [place] coronary artery without angina pectoris (6) HTN (hypertension) ICD Code: I10 - Essential (primary) hypertension Status: Chronic (7) Hyperlipidemia ICD Code: E78.5 - Hyperlipidemia, unspecified Status: Chronic Assessment and Plan 1. Cholecystitis: Status post laparoscopic cholecystectomy. Management per general surgery. DILIA drain in place. 2. Coronary artery disease: History of CABG. Continue carvedilol, statin. Resume aspirin, Plavix, Eliquis when okay with surgery. 3. Chronic systolic congestive heart failure: Not currently in exacerbation. Echocardiogram in October showed ejection fraction of 25-30% with diffuse hypokinesis. Continue Lasix, spironolactone, KIMNAI inhibitor, beta-hina. 4. Questionable seizure disorder: Patient is on Depakote and gabapentin. He denies having history of seizures, reporting a vague reason for taking the gabapentin related to writing songs for days at a time and not sleeping. 5. Hyperlipidemia: Continue statin 6. Depression: Continue Cymbalta, Seroquel. 7. Atrial fibrillation: Resume Eliquis when okay with general surgery. 8. History of ventricular tachycardia: Monitor on telemetry. AICD in place. Follows with Dr. Livingston per cardiology. 9. DVT prophylaxis: SCDs. Resume Eliquis when okay with general surgery. 10. Leukocytosis: Possibly stress reaction. Repeat labs are pending today. Discharge Planning Per general surgery. Parveen Hines MD Feb 07, 2018 11:12
--- NOTE | 2018-02-07 13:17 | HHI.PR ---
Subjective Subjective Notes pain controlled, no NV, very hungry today Objective Vitals/I&O Vital Signs Date Time Temp Pulse Resp B/P (MAP) Pulse Ox O2 Delivery O2 Flow Rate FiO2 02/07/18 12:00 97.1 54 18 98/54 (69) 92 02/06/18 08:19 Nasal Cannula 1.50 Cardiovascular: Regular Lungs: Clear Abdomen: Non-distended, Post-op tenderness Narrative Exam drain clear-red A/P Assessment and Plan 72 year old male POD2 lap angela; gangrenous -Continue IV antibiotics -ok restart ASA/Plavix today -low fat diet -Continue routine DILIA care, minimal bloody fluid -will follow Vel Shin MD Feb 07, 2018 13:17
[2018-02-07 13:31] LABS: BASOPHIL # 0.1 TH/MM3 (0-0.2); BASOPHIL % 0.5 % (0.0-2.0); EOSINOPHIL # 0.1 TH/MM3 (0-0.4); EOSINOPHIL % 0.5 % (0.0-4.0); HEMATOCRIT 28.6 % (39.0-51.0); HEMOGLOBIN 9.4 GM/DL (13.0-17.0); LYMPH % 26.1 % (9.0-44.0); MEAN CELL VOLUME 92.5 FL (80.0-100.0); MEAN CORPUSCULAR HEMOGLOBIN 30.4 PG (27.0-34.0); MEAN CORPUSCULAR HGB CONC 32.9 % (32.0-36.0); MEAN PLATELET VOLUME 7.3 FL (7.0-11.0); MONO % 12.6 % (0.0-8.0); MONOCYTE # 1.5 TH/MM3 (0-0.9); NEUT % 60.3 % (16.0-70.0); PLATELET COUNT 149 TH/MM3 (150-450); RED BLOOD COUNT 3.09 MIL/MM3 (4.50-5.90); RED CELL DISTRIBUTION WIDTH 15.3 % (11.6-17.2); WHITE BLOOD COUNT 11.6 TH/MM3 (4.0-11.0)
[2018-02-07 13:51] LABS: BICARBONATE 30.4 MEQ/L (21.0-32.0); CALCIUM 8.5 MG/DL (8.5-10.1); CREATININE 1.19 MG/DL (0.60-1.30)
[2018-02-07] MEDS: CLOPIDOGREL 75 MG TAB PO SCH (17:13)
[2018-02-07] MEDS: ASPIRIN 81 MG CHEW TAB PO SCH (17:14)
[2018-02-07] MEDS: ATORVASTATIN 40 MG TAB PO SCH (20:34)
[2018-02-07] MEDS: TAMSULOSIN HCL 0.4 MG CAP PO SCH (20:34)
[2018-02-08] VITALS (10 sets, daily range): BP systolic 104–139; BP diastolic 54–85; PULSE 48–64; RESP 17–19; TEMP 97.2–98; O2SAT 91–95
[2018-02-08] MEDS: PIPERACIL-TAZO 3.375 GM PREMIX 50 ML IV SCH ×5 (00:04→23:48)
[2018-02-08] MEDS: ACETAMINOPHEN/HYDROcodone 325 MG/5 MG TAB PO PRN ×2 (04:20→19:22)
[2018-02-08] MEDS: PCA - TOTAL MG MORPHINE DELIVERED PER SHIFT SCH ×3 (06:00→19:23)
[2018-02-08] MEDS: DULoxetine HCl DR 60 MG CAP PO SCH (08:38)
[2018-02-08] MEDS: SPIRONOLACTONE 25 MG TAB PO SCH ×2 (08:38→17:09)
[2018-02-08] MEDS: DIVALPROEX DR 500 MG TABEC PO SCH ×3 (08:38→17:09)
[2018-02-08] MEDS: GABAPENTIN 300 MG CAP PO SCH ×3 (08:39→17:09)
[2018-02-08] MEDS: POTASSIUM CHLORIDE 20 MEQ CONTROLLED RELEASE TAB PO SCH (08:39)
[2018-02-08] MEDS: MULTIVITAMIN TAB PO SCH (08:39)
[2018-02-08] MEDS: QUEtiapine FUMARATE 25 MG TAB PO SCH ×2 (08:39→12:09)
[2018-02-08] MEDS: CLOPIDOGREL 75 MG TAB PO SCH (08:40)
[2018-02-08] MEDS: ASPIRIN 81 MG CHEW TAB PO SCH (08:40)
[2018-02-08] MEDS: LISINOPRIL 10 MG TAB PO SCH (08:40)
[2018-02-08] MEDS: amLODIPine BESYLATE 5 MG TAB PO SCH (08:41)
[2018-02-08] MEDS: CARVEDILOL 12.5 MG TAB PO SCH (08:47)
[2018-02-08] MEDS: AMIODARONE 200 MG TAB PO SCH (08:54)
[2018-02-08] MEDS ORDERED: FUROSEMIDE 40 MG TAB PO SCH (09:00)
--- NOTE | 2018-02-08 10:12 | HHI.PR ---
Subjective Remarks Follow up hypertension, CAD. Patient is sleepy today. No other complaints at this time. Objective Vitals Vital Signs Date Time Temp Pulse Resp B/P (MAP) Pulse Ox O2 Delivery O2 Flow Rate FiO2 02/08/18 08:00 97.5 50 18 118/55 (76) 94 02/08/18 04:02 53 02/08/18 04:00 97.2 64 18 131/63 (85) 95 02/08/18 00:00 98.0 61 19 130/61 (84) 91 02/07/18 23:27 50 02/07/18 20:11 48 02/07/18 20:00 97.2 49 18 101/52 (68) 95 02/07/18 16:00 97.4 54 18 90/54 (66) 92 02/07/18 12:00 97.1 54 18 98/54 (69) 92 I/O 02/07/18 02/07/18 02/07/18 02/08/18 02/08/18 02/08/18 07:00 15:00 23:00 07:00 15:00 23:00 Intake Total 290 ml 720 ml 580 ml Output Total 1100 ml 300 ml 600 ml 2 ml Balance -810 ml -300 ml 120 ml 578 ml Intake Oral 240 ml 720 ml 480 ml IV Total 50 ml 100 ml Output Urine Total 1050 ml 300 ml 600 ml Drainage Total 50 ml 0 ml 2 ml # Voids 7 # Bowel Movements 0 0 2 Result Diagram: 02/07/18 1236 02/07/18 1236 Objective Remarks General: No acute distress. Heart: Regular rate and rhythm. No murmur. Lungs: Clear to auscultation bilaterally. No wheezes, rales, or rhonchi. Breathing is nonlabored. Abdomen: Soft, mildly distended. DILIA drain in place. Tender to palpation in the right upper quadrant. Extremities: No lower extremity edema. Psych: Alert and oriented. Neuro: Normal speech. No focal deficits noted. Procedures 02/05/18 laparoscopic cholecystectomy Urinary Catheter: No Vascular Central Line Catheter: No A/P Problem List: (1) Chronic systolic CHF (congestive heart failure) ICD Code: I50.22 - Chronic systolic (congestive) heart failure (2) BPH (benign prostatic hyperplasia) ICD Code: N40.0 - Benign prostatic hyperplasia without lower urinary tract symptoms Status: Chronic (3) Seizure disorder ICD Code: G40.909 - Epilepsy, unspecified, not intractable, without status epilepticus Status: Chronic (4) Atrial fibrillation ICD Code: I48.91 - Unspecified atrial fibrillation Status: Chronic (5) CAD (coronary artery disease) ICD Code: I25.10 - Atherosclerotic heart disease of [place] coronary artery without angina pectoris (6) HTN (hypertension) ICD Code: I10 - Essential (primary) hypertension Status: Chronic (7) Hyperlipidemia ICD Code: E78.5 - Hyperlipidemia, unspecified Status: Chronic Assessment and Plan 1. Cholecystitis: Status post laparoscopic cholecystectomy. Management per general surgery. DILIA drain in place. 2. Coronary artery disease: History of CABG. Continue carvedilol, statin. Aspirin and Plavix restarted. Resume Eliquis when okay with surgery. 3. Chronic systolic congestive heart failure: Not currently in exacerbation. Echocardiogram in October showed ejection fraction of 25-30% with diffuse hypokinesis. Continue Lasix, spironolactone, KIMANI inhibitor, beta-hina. Decrease dose of Coreg and lisinopril due to hypotension and bradycardia. 4. Questionable seizure disorder: Patient is on Depakote and gabapentin. He denies having history of seizures, reporting a vague reason for taking the gabapentin related to writing songs for days at a time and not sleeping. 5. Hyperlipidemia: Continue statin 6. Depression: Continue Cymbalta, Seroquel. 7. Atrial fibrillation: Resume Eliquis when okay with general surgery. 8. History of ventricular tachycardia: Monitor on telemetry. AICD in place. Follows with Dr. Livingston per cardiology. 9. DVT prophylaxis: SCDs. Resume Eliquis when okay with general surgery. 10. Leukocytosis: Possibly stress reaction. Improving. Discharge Planning Per general surgery. Parveen Hines MD Feb 08, 2018 10:12
--- NOTE | 2018-02-08 10:40 | HHI.PR ---
Subjective Subjective Notes feels ok, watching tv, mild pain. has not been oob yet today Objective Vitals/I&O Vital Signs Date Time Temp Pulse Resp B/P (MAP) Pulse Ox O2 Delivery O2 Flow Rate FiO2 02/08/18 08:10 48 02/08/18 08:00 97.5 18 118/55 (76) 94 02/06/18 08:19 Nasal Cannula 1.50 Labs Laboratory Tests Test 02/07/18 12:36 White Blood Count 11.6 Red Blood Count 3.09 Hemoglobin 9.4 Hematocrit 28.6 Mean Corpuscular Volume 92.5 Mean Corpuscular Hemoglobin 30.4 Mean Corpuscular Hemoglobin Concent 32.9 Red Cell Distribution Width 15.3 Platelet Count 149 Mean Platelet Volume 7.3 Neutrophils (%) (Auto) 60.3 Lymphocytes (%) (Auto) 26.1 Monocytes (%) (Auto) 12.6 Eosinophils (%) (Auto) 0.5 Basophils (%) (Auto) 0.5 Neutrophils # (Auto) 7.0 Lymphocytes # (Auto) 3.0 Monocytes # (Auto) 1.5 Eosinophils # (Auto) 0.1 Basophils # (Auto) 0.1 CBC Comment DIFF FINAL Differential Comment Blood Urea Nitrogen 16 Creatinine 1.19 Random Glucose 81 Calcium Level 8.5 Sodium Level 139 Potassium Level 4.3 Chloride Level 106 Carbon Dioxide Level 30.4 Anion Gap 3 Estimat Glomerular Filtration Rate 60 Abdomen: Non-distended, Non-tender, Post-op tenderness, BS normal Narrative Exam DILIA with minimal sanginous output, no bile A/P Assessment and Plan pod 3 lap angela doing well mild bradycardia, dr anton adjusting meds likely dc to [place] in am if doing well overnight can remove drain prior to DC. John Bryan MD Feb 08, 2018 10:39
[2018-02-08] MEDS: TAMSULOSIN HCL 0.4 MG CAP PO SCH (19:23)
[2018-02-08] MEDS: ATORVASTATIN 40 MG TAB PO SCH (19:23)
[2018-02-09] VITALS: BP 117/59; PULSE 55; RESP 18; TEMP 98.4; O2SAT 93
[2018-02-09 00:02] VITALS: PULSE 55
[2018-02-09] MEDS: ACETAMINOPHEN/HYDROcodone 325 MG/5 MG TAB PO PRN ×3 (00:27→10:01)
[2018-02-09 03:52] VITALS: PULSE 58
[2018-02-09 04:00] VITALS: BP 106/52; PULSE 60; RESP 17; TEMP 97.9; O2SAT 93
[2018-02-09] MEDS: PCA - TOTAL MG MORPHINE DELIVERED PER SHIFT SCH (05:56)
[2018-02-09] MEDS: PIPERACIL-TAZO 3.375 GM PREMIX 50 ML IV SCH ×2 (05:56→10:01)
[2018-02-09 08:00] VITALS: BP 114/56; PULSE 53; RESP 16; TEMP 97.4; O2SAT 94
[2018-02-09] MEDS ORDERED: SERO25TA PO (08:06)
[2018-02-09] MEDS ORDERED: HYDR-3516 PO (08:06)
[2018-02-09] MEDS ORDERED: AUGM875T3 PO (08:20)
[2018-02-09 08:30] VITALS: PULSE 52
[2018-02-09] MEDS: GABAPENTIN 300 MG CAP PO SCH (08:31)
[2018-02-09] MEDS: ASPIRIN 81 MG CHEW TAB PO SCH (08:31)
[2018-02-09] MEDS: CLOPIDOGREL 75 MG TAB PO SCH (08:32)
[2018-02-09] MEDS: DIVALPROEX DR 500 MG TABEC PO SCH (08:32)
[2018-02-09] MEDS: POTASSIUM CHLORIDE 20 MEQ CONTROLLED RELEASE TAB PO SCH (08:32)
[2018-02-09] MEDS: SPIRONOLACTONE 25 MG TAB PO SCH (08:32)
[2018-02-09] MEDS: DULoxetine HCl DR 60 MG CAP PO SCH (08:32)
[2018-02-09] MEDS: MULTIVITAMIN TAB PO SCH (08:32)
[2018-02-09] MEDS: QUEtiapine FUMARATE 25 MG TAB PO SCH (08:32)
[2018-02-09] MEDS: AMIODARONE 200 MG TAB PO SCH (08:34)
[2018-02-09] MEDS: amLODIPine BESYLATE 5 MG TAB PO SCH (08:35)
[2018-02-09] MEDS ORDERED: LISINOPRIL 5 MG TAB PO SCH (09:00)
[2018-02-09] MEDS ORDERED: CARVEDILOL 3.125 MG TAB PO SCH (09:00)
== END 2018-02-09 11:56 | DRG 418 ==
LOC: HSDC 12:29 → HSDI 16:02 → HIMN 16:55 → N07A 02-06 22:03 → UNDODISIN 02-06 22:34
PROVIDERS: ADMIT Surgery Trauma Surgery; ATTEND Surgery Trauma Surgery
PROC: 0WQF0ZZ Repair Abdominal Wall, Open Approach (ICD-10-PCS; 2018-02-05)
PROC: 0FT44ZZ Resection of Gallbladder, Percutaneous Endoscopic Approach (ICD-10-PCS; principal; 2018-02-05 14:12)
DX: K80.12 Calculus of gallbladder with acute and chronic cholecystitis without obstruction (principal); I50.22 Chronic systolic (congestive) heart failure; I11.0 Hypertensive heart disease with heart failure; I95.9 Hypotension, unspecified; I48.91 Unspecified atrial fibrillation; R00.1 Bradycardia, unspecified; G40.909 Epilepsy, unspecified, not intractable, without status epilepticus; D64.9 Anemia, unspecified; K42.9 Umbilical hernia without obstruction or gangrene; I25.10 Atherosclerotic heart disease of native coronary artery without angina pectoris; E78.5 Hyperlipidemia, unspecified; F32.9 Major depressive disorder, single episode, unspecified; R31.9 Hematuria, unspecified; N40.0 Benign prostatic hyperplasia without lower urinary tract symptoms; Z79.01 Long term (current) use of anticoagulants; Z87.891 Personal history of nicotine dependence; Z88.1 Allergy status to other antibiotic agents; Z88.5 Allergy status to narcotic agent; Z95.1 Presence of aortocoronary bypass graft; Z95.810 Presence of automatic (implantable) cardiac defibrillator
CPT/HCPCS: 80048; 80076; 83735; 85025; 88304; 94150; J0131; J0171; J0690; J1100; J1170; J2175; J2405; J2543; J2710; J3010; J3370; J7030; J7040; J7050; J7120